=== PATIENT | male | born 1965 | race Caucasian/White ===

== ENCOUNTER → 2020-03-20 14:21 | Outpatient (BNVA) | payer OTHER, SELFPAY | PROVIDERS: PCP Internal Medicine Geriatric Medicine; Visit Provider Internal Medicine | DX: I26.99 Other pulmonary embolism without acute cor pulmonale (principal); Z51.81 Encounter for therapeutic drug level monitoring; Z79.01 Long term (current) use of anticoagulants | CPT/HCPCS: 85610 ==

== ENCOUNTER → 2020-03-31 13:51 | Outpatient (BNVA) | payer OTHER, SELFPAY | PROVIDERS: PCP Internal Medicine Geriatric Medicine; Visit Provider Internal Medicine | DX: I26.99 Other pulmonary embolism without acute cor pulmonale (principal); Z51.81 Encounter for therapeutic drug level monitoring; Z79.01 Long term (current) use of anticoagulants | CPT/HCPCS: 85610; 99211 ==

== ENCOUNTER → 2020-04-14 11:50 | Outpatient (BNVA) | payer OTHER, SELFPAY | PROVIDERS: PCP Internal Medicine Geriatric Medicine; Visit Provider Internal Medicine | DX: I26.99 Other pulmonary embolism without acute cor pulmonale (principal); Z51.81 Encounter for therapeutic drug level monitoring; Z79.01 Long term (current) use of anticoagulants | CPT/HCPCS: 85610; 99211 ==

== ENCOUNTER → 2020-05-05 10:29 | Outpatient (BNVA) | payer OTHER, SELFPAY | PROVIDERS: PCP Internal Medicine Geriatric Medicine; Visit Provider Internal Medicine | DX: I26.99 Other pulmonary embolism without acute cor pulmonale (principal); Z51.81 Encounter for therapeutic drug level monitoring; Z79.01 Long term (current) use of anticoagulants | CPT/HCPCS: 85610; 99211 ==

== ENCOUNTER 2020-05-13 08:53 | Outpatient (REF) | payer OTHER, SELFPAY ==
--- NOTE | 2020-05-13 | US_ITS ---
EXAMINATION: US VENOUS ULTRASOUND WITH DOPPLER LOWER EXTREMITY, RIGHT CLINICAL INFORMATION: Pain. COMPARISON: None TECHNIQUE: Ultrasound of the deep veins is performed from the hip to the calf with compression sonography and color and pulse Doppler assessment. Spectral analysis with color-flow imaging is performed. FINDINGS: The right common femoral vein is patent. The right profunda is patent. 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 In one of the mid superficial femoral veins, there is linear echogenic material, limited compression and limited flow suggestive of changes from old DVT. The popliteal vein is patent. The visualized posterior tibial and peroneal veins in the calf are patent. There is no Connell's cyst. US/US venous duplex LE RT IMPRESSION: Partially duplicated system. There is probable chronic changes from nonocclusive DVT in one of the mid superficial femoral veins. There is no definite evidence of acute DVT. If there is suspicion of acute DVT, short-term follow-up exam in several days to one week would be recommended. Findings will be communicated by the [place] work flow host coordinator Malissa Rangel.
== END 2020-05-13 08:54 | disposition home or self-care (01) ==
LOC: HO.US 08:53
PROVIDERS: PCP Internal Medicine Geriatric Medicine; Visit Provider Internal Medicine Geriatric Medicine
DX: I82.503 Chronic embolism and thrombosis of unspecified deep veins of lower extremity, bilateral (principal); M79.661 Pain in right lower leg
CPT/HCPCS: 93971

== ENCOUNTER → 2020-05-16 14:15 | Outpatient (BNVA) | payer OTHER, SELFPAY | PROVIDERS: PCP Internal Medicine Geriatric Medicine; Visit Provider Internal Medicine | DX: I26.99 Other pulmonary embolism without acute cor pulmonale (principal); Z51.81 Encounter for therapeutic drug level monitoring; Z79.01 Long term (current) use of anticoagulants | CPT/HCPCS: 85610; 99211 ==

== ENCOUNTER → 2020-05-26 11:02 | Outpatient (BNVA) | payer OTHER, SELFPAY | PROVIDERS: PCP Internal Medicine Geriatric Medicine; Visit Provider Internal Medicine | DX: I26.99 Other pulmonary embolism without acute cor pulmonale (principal); Z51.81 Encounter for therapeutic drug level monitoring; Z79.01 Long term (current) use of anticoagulants | CPT/HCPCS: 85610; 99211 ==

== ENCOUNTER → 2020-06-02 11:36 | Outpatient (BNVA) | payer OTHER, SELFPAY | PROVIDERS: PCP Internal Medicine Geriatric Medicine; Visit Provider Internal Medicine | DX: I26.99 Other pulmonary embolism without acute cor pulmonale (principal); Z51.81 Encounter for therapeutic drug level monitoring; Z79.01 Long term (current) use of anticoagulants | CPT/HCPCS: 85610; 99211 ==

== ENCOUNTER → 2020-06-09 14:51 | Outpatient (BNVA) | payer OTHER, SELFPAY | PROVIDERS: PCP Internal Medicine Geriatric Medicine; Visit Provider Internal Medicine | DX: I26.99 Other pulmonary embolism without acute cor pulmonale (principal); Z51.81 Encounter for therapeutic drug level monitoring; Z79.01 Long term (current) use of anticoagulants | CPT/HCPCS: 85610; 99211 ==

== ENCOUNTER → 2020-06-11 13:31 | Outpatient (BNVA) | payer OTHER, SELFPAY | PROVIDERS: PCP Internal Medicine Geriatric Medicine; Visit Provider Surgery | DX: I27.82 Chronic pulmonary embolism (principal); K64.5 Perianal venous thrombosis | CPT/HCPCS: 99212 ==

== ENCOUNTER → 2020-06-23 14:01 | Outpatient (BNVA) | payer OTHER, SELFPAY | PROVIDERS: PCP Internal Medicine Geriatric Medicine; Visit Provider Internal Medicine | DX: I26.99 Other pulmonary embolism without acute cor pulmonale (principal); Z51.81 Encounter for therapeutic drug level monitoring; Z79.01 Long term (current) use of anticoagulants | CPT/HCPCS: 85610; 99211 ==

== ENCOUNTER → 2020-07-09 13:55 | Outpatient (BNVA) | payer OTHER, SELFPAY | PROVIDERS: PCP Internal Medicine Geriatric Medicine; Visit Provider Internal Medicine | DX: I26.99 Other pulmonary embolism without acute cor pulmonale (principal); Z51.81 Encounter for therapeutic drug level monitoring; Z79.01 Long term (current) use of anticoagulants | CPT/HCPCS: 85610; 99211 ==

== ENCOUNTER 2020-07-21 16:09 | Outpatient (REF) | payer OTHER, SELFPAY ==
--- NOTE | ~2020-07-21 | XR_ITS ---
EXAMINATION: RIGHT ANKLE AND RIGHT KNEE. CLINICAL INFORMATION: Pain right ankle and right knee. COMPARISON: Left knee 08/25/2018 and right knee 01/23/2018. TECHNIQUE: Right knee 4 views. Right ankle 3 views. FINDINGS: Right Knee: There is mild reduction in the patellofemoral compartment joint space with a loose bodies superior to the patella, likely arising from the lateral patellar articulating facet. There is small superior patellar spurring as well. No abnormal joint effusion seen. No fracture or dislocation. No bony erosive changes. Right Ankle: There is bimalleolar soft tissue swelling no ligamentous injury. Ankle mortise and subtalar joints are normal. There is a moderate-sized calcaneal and small retrocalcaneal enthesophyte. The ankle mortise and subtalar joints are normal. XR/XR knee RT 3V IMPRESSION: Small loose body seen superior to patella likely arising from the lateral articulating patellar facet, question osteochondritis dissecans as was noted in 2018 exam. Small superior patellar spur. No abnormal joint effusion. Small calcaneal and retrocalcaneal enthesophytes. No visible acute fracture, dislocation or subluxation seen.
--- NOTE | ~2020-07-21 | XR_ITS ---
EXAMINATION: RIGHT ANKLE AND RIGHT KNEE. CLINICAL INFORMATION: Pain right ankle and right knee. COMPARISON: Left knee 08/25/2018 and right knee 01/23/2018. TECHNIQUE: Right knee 4 views. Right ankle 3 views. FINDINGS: Right Knee: There is mild reduction in the patellofemoral compartment joint space with a loose bodies superior to the patella, likely arising from the lateral patellar articulating facet. There is small superior patellar spurring as well. No abnormal joint effusion seen. No fracture or dislocation. No bony erosive changes. Right Ankle: There is bimalleolar soft tissue swelling no ligamentous injury. Ankle mortise and subtalar joints are normal. There is a moderate-sized calcaneal and small retrocalcaneal enthesophyte. The ankle mortise and subtalar joints are normal. XR/XR ankle RT min 3V IMPRESSION: Small loose body seen superior to patella likely arising from the lateral articulating patellar facet, question osteochondritis dissecans as was noted in 2018 exam. Small superior patellar spur. No abnormal joint effusion. Small calcaneal and retrocalcaneal enthesophytes. No visible acute fracture, dislocation or subluxation seen.
== END 2020-07-21 16:10 | disposition home or self-care (01) ==
LOC: HO.XRAY 16:09
PROVIDERS: PCP Internal Medicine Geriatric Medicine; Visit Provider Emergency Medicine
DX: M25.561 Pain in right knee (principal); M25.571 Pain in right ankle and joints of right foot; W19.XXXA Unspecified fall, initial encounter
CPT/HCPCS: 73562; 73610

== ENCOUNTER → 2020-07-22 14:45 | Outpatient (BNVA) | payer OTHER, SELFPAY | PROVIDERS: PCP Internal Medicine Geriatric Medicine; Visit Provider Nurse Practitioner Family | DX: Z76.89 Persons encountering health services in other specified circumstances (principal) | CPT/HCPCS: Q3014 ==

== ENCOUNTER → 2020-07-24 14:23 | Outpatient (BNVA) | payer OTHER, SELFPAY | PROVIDERS: PCP Internal Medicine Geriatric Medicine; Visit Provider Internal Medicine | DX: I26.99 Other pulmonary embolism without acute cor pulmonale (principal); Z51.81 Encounter for therapeutic drug level monitoring; Z79.01 Long term (current) use of anticoagulants | CPT/HCPCS: 85610; 99211 ==

== ENCOUNTER → 2020-08-04 14:28 | Outpatient (BNVA) | payer OTHER, SELFPAY | PROVIDERS: PCP Internal Medicine Geriatric Medicine; Visit Provider Internal Medicine | DX: I26.99 Other pulmonary embolism without acute cor pulmonale (principal); Z51.81 Encounter for therapeutic drug level monitoring; Z79.01 Long term (current) use of anticoagulants | CPT/HCPCS: 85610; 99211 ==

== ENCOUNTER → 2020-08-11 14:41 | Outpatient (BNVA) | payer OTHER, SELFPAY | PROVIDERS: PCP Internal Medicine Geriatric Medicine; Visit Provider Internal Medicine | DX: I26.99 Other pulmonary embolism without acute cor pulmonale (principal); Z51.81 Encounter for therapeutic drug level monitoring; Z79.01 Long term (current) use of anticoagulants | CPT/HCPCS: 85610; 99211 ==

== ENCOUNTER 2020-08-20 10:06 | Outpatient (REF) | payer OTHER, SELFPAY ==
--- NOTE | 2020-08-20 13:47 | MHC.AU.P13 ---
Hearing Aid Evaluation- Binaural Date of Visit: Animal Shelter Supervisor Used: Turkmen- In Person Description of Hearing: Severe to profound sensorineural hearing loss bilaterally Current Hearing Instrument Information: None Additional Information: Patient was medically cleared by Dr. Pop. Due to the significant amount of hearing loss and speech understanding difficulties, binaural hearing aids are recommended as part of the remediation process. Discussed and demonstrated ITE vs LUCILLE hearing aids. Due to wearing masks and some manipulation difficulties advise in-the-ear rechargeable hearing aids. Hearing Instrument Selection: Right Ear: Construction Supervisor/Carpenter: Amarin Model: Jamir 1600 ITE-R Battery Size: Rechargeable Color: Light Brown Left Ear: Construction Supervisor/Carpenter: Curry Model: Jamir 1600 ITE-R Battery Size: Rechargeable Color: Light Brown Plan: Plan of Care for Hearing Instrument Fitting: Patient wishes to purchase hearing aids as prescribed Action Taken/Action Needed: [place] Impressions Taken Diagnosis Code(s): Primary Diagnosis: H90.3 Bilateral Sensorineural Hearing Loss Services Performed: Hearing Aid Evaluation Type: HAE B: Binaural 3rd Libertarian Ear Impression (Quantity): 2 Signature: Provider: Kenn Powell, CCC-A
== END 2020-08-20 10:07 | disposition home or self-care (01) ==
LOC: HO.HAP 10:06
PROVIDERS: PCP Internal Medicine Geriatric Medicine; Visit Provider Otolaryngology
DX: Z46.1 Encounter for fitting and adjustment of hearing aid (principal)
CPT/HCPCS: 92591; V5275

== ENCOUNTER → 2020-08-26 13:42 | Outpatient (BNVA) | payer OTHER, SELFPAY | PROVIDERS: PCP Internal Medicine Geriatric Medicine; Visit Provider Internal Medicine | DX: I26.99 Other pulmonary embolism without acute cor pulmonale (principal); Z51.81 Encounter for therapeutic drug level monitoring; Z79.01 Long term (current) use of anticoagulants | CPT/HCPCS: 85610; 99211 ==

== ENCOUNTER → 2020-09-08 14:22 | Outpatient (BNVA) | payer OTHER, SELFPAY | PROVIDERS: PCP Internal Medicine Geriatric Medicine; Visit Provider Internal Medicine | DX: I26.99 Other pulmonary embolism without acute cor pulmonale (principal); Z51.81 Encounter for therapeutic drug level monitoring; Z79.01 Long term (current) use of anticoagulants | CPT/HCPCS: 85610; 99211 ==

== ENCOUNTER 2020-09-09 09:09 | Outpatient (REF) | payer OTHER, SELFPAY | END 2020-09-09 09:10 | disposition home or self-care (01) | LOC: HO.HAP 09:09 | PROVIDERS: PCP Internal Medicine Geriatric Medicine; Visit Provider Otolaryngology | DX: Z46.1 Encounter for fitting and adjustment of hearing aid (principal); H90.3 Sensorineural hearing loss, bilateral; H69.93 Unspecified Eustachian tube disorder, bilateral | CPT/HCPCS: 92595; V5011; V5020; V5160; V5260 ==

== ENCOUNTER → 2020-09-25 14:10 | Outpatient (BNVA) | payer OTHER, SELFPAY | PROVIDERS: PCP Internal Medicine Geriatric Medicine; Visit Provider Internal Medicine | DX: I26.99 Other pulmonary embolism without acute cor pulmonale (principal); Z79.01 Long term (current) use of anticoagulants; Z51.81 Encounter for therapeutic drug level monitoring | CPT/HCPCS: 85610; 99211 ==

== ENCOUNTER → 2020-10-07 13:28 | Outpatient (BNVA) | payer OTHER, SELFPAY | PROVIDERS: PCP Internal Medicine Geriatric Medicine; Visit Provider Internal Medicine | DX: I26.99 Other pulmonary embolism without acute cor pulmonale (principal); Z51.81 Encounter for therapeutic drug level monitoring; Z79.01 Long term (current) use of anticoagulants | CPT/HCPCS: 85610; 99211 ==

== ENCOUNTER → 2020-10-13 13:16 | Outpatient (BNVA) | payer OTHER, SELFPAY | PROVIDERS: PCP Internal Medicine Geriatric Medicine; Visit Provider Internal Medicine | DX: I26.99 Other pulmonary embolism without acute cor pulmonale (principal); Z51.81 Encounter for therapeutic drug level monitoring; Z79.01 Long term (current) use of anticoagulants | CPT/HCPCS: 85610; 99211 ==

== ENCOUNTER 2020-10-21 12:55 | Outpatient (REF) | payer OTHER, SELFPAY | END 2020-10-21 12:56 | disposition home or self-care (01) | LOC: HO.HAP 12:55 | PROVIDERS: Visit Provider Internal Medicine Geriatric Medicine | DX: Z13.89 Encounter for screening for other disorder (principal) ==

== ENCOUNTER → 2020-10-27 13:03 | Outpatient (BNVA) | payer OTHER, SELFPAY | PROVIDERS: PCP Internal Medicine Geriatric Medicine; Visit Provider Internal Medicine | DX: I26.99 Other pulmonary embolism without acute cor pulmonale (principal); Z51.81 Encounter for therapeutic drug level monitoring; Z79.01 Long term (current) use of anticoagulants | CPT/HCPCS: 85610; 99211 ==

== ENCOUNTER → 2020-11-03 13:04 | Outpatient (BNVA) | payer OTHER, SELFPAY | PROVIDERS: PCP Internal Medicine Geriatric Medicine; Visit Provider Internal Medicine | DX: I26.99 Other pulmonary embolism without acute cor pulmonale (principal); Z51.81 Encounter for therapeutic drug level monitoring; Z79.01 Long term (current) use of anticoagulants | CPT/HCPCS: 85610; 99211 ==

== ENCOUNTER → 2020-11-17 13:08 | Outpatient (BNVA) | payer OTHER, SELFPAY | PROVIDERS: PCP Internal Medicine Geriatric Medicine; Visit Provider Internal Medicine | DX: I26.99 Other pulmonary embolism without acute cor pulmonale (principal); Z51.81 Encounter for therapeutic drug level monitoring; Z79.01 Long term (current) use of anticoagulants | CPT/HCPCS: 85610; 99211 ==

== ENCOUNTER → 2020-11-24 13:04 | Outpatient (BNVA) | payer OTHER, SELFPAY | PROVIDERS: PCP Internal Medicine Geriatric Medicine; Visit Provider Internal Medicine | DX: I26.99 Other pulmonary embolism without acute cor pulmonale (principal); Z51.81 Encounter for therapeutic drug level monitoring; Z79.01 Long term (current) use of anticoagulants | CPT/HCPCS: 85610; 99211 ==

== ENCOUNTER → 2020-12-04 13:16 | Outpatient (BNVA) | payer OTHER, SELFPAY | PROVIDERS: PCP Internal Medicine Geriatric Medicine; Visit Provider Internal Medicine | DX: I26.99 Other pulmonary embolism without acute cor pulmonale (principal); Z51.81 Encounter for therapeutic drug level monitoring; Z79.01 Long term (current) use of anticoagulants | CPT/HCPCS: 85610; 99211 ==

== ENCOUNTER → 2020-12-09 13:09 | Outpatient (BNVA) | payer OTHER, SELFPAY | PROVIDERS: PCP Internal Medicine Geriatric Medicine; Visit Provider Internal Medicine | DX: I26.99 Other pulmonary embolism without acute cor pulmonale (principal); Z51.81 Encounter for therapeutic drug level monitoring; Z79.01 Long term (current) use of anticoagulants | CPT/HCPCS: 85610; 99211 ==

== ENCOUNTER → 2020-12-23 13:25 | Outpatient (BNVA) | payer OTHER, SELFPAY | PROVIDERS: PCP Internal Medicine Geriatric Medicine; Visit Provider Internal Medicine | DX: I26.99 Other pulmonary embolism without acute cor pulmonale (principal); Z51.81 Encounter for therapeutic drug level monitoring; Z79.01 Long term (current) use of anticoagulants | CPT/HCPCS: 85610; 99211 ==

== ENCOUNTER → 2021-01-06 10:37 | Outpatient (BNVA) | payer OTHER, SELFPAY | PROVIDERS: PCP Internal Medicine Geriatric Medicine; Visit Provider Internal Medicine | DX: I26.99 Other pulmonary embolism without acute cor pulmonale (principal); Z51.81 Encounter for therapeutic drug level monitoring; Z79.01 Long term (current) use of anticoagulants | CPT/HCPCS: 85610; 99211 ==

== ENCOUNTER 2021-01-15 11:58 | Outpatient (REF) | payer OTHER, SELFPAY ==
--- NOTE | ~2021-01-15 | US_ITS ---
EXAMINATION: US VENOUS ULTRASOUND WITH DOPPLER LOWER EXTREMITY, BILATERAL CLINICAL INFORMATION: Bilateral leg pain. History of recurrent DVT with known occlusive DVTs. COMPARISON: May 13, 2020 TECHNIQUE: Ultrasound of the deep veins is performed from the hip to the calf with compression sonography and color and pulse Doppler assessment. Spectral analysis with color-flow imaging is performed. FINDINGS: RIGHT: There appears to be a duplicated femoral vein from proximal thigh to popliteal veins. There are findings of chronic deep venous thrombosis with wall thickening and synechiae present with partial occlusion from the proximal thigh to the popliteal veins with limited evaluation of the calf veins related to body habitus and edema.. About the medial right knee there is a complex cyst present measuring approximately 7.6 x 1.2 x 3.5 cm in size. LEFT: There is a similar anatomy within the left leg with branching of what is likely to be a duplicated femoral vein from proximal thigh to popliteal vein. There are regions of noncompressibility and complete occlusion to flow within portions of the breast femoral vein from proximal femoral vein to popliteal vein which is likely related to acute DVT since there is no recanalization of flow present in some regions. Calf veins were not well evaluated. There is no significant popliteal fossa cyst. US/US venous duplex LE BI IMPRESSION: Findings consistent with chronic DVT with recanalization and synechiae within the right lower extremity. Findings consistent with acute deep venous thrombosis with lack of compressibility and occlusion to flow within portions of a branched femoral vein and left popliteal vein. This critical result was discussed with Dr. Treviño at 2:55 PM on January 15, 2021 and it was ascertained that the content and urgency of the report was understood at the time of direct communication.
== END 2021-01-15 11:59 | disposition home or self-care (01) ==
LOC: HO.US 11:58
PROVIDERS: PCP Internal Medicine Geriatric Medicine; Visit Provider Nurse Practitioner Primary Care
DX: I82.409 Acute embolism and thrombosis of unspecified deep veins of unspecified lower extremity (principal); M79.604 Pain in right leg; M79.662 Pain in left lower leg
CPT/HCPCS: 93970

== ENCOUNTER 2021-02-18 15:32 | Outpatient (REF) | payer OTHER, SELFPAY ==
--- NOTE | ~2021-02-18 | US_ITS ---
EXAMINATION: US VENOUS ULTRASOUND WITH DOPPLER LOWER EXTREMITY, LEFT CLINICAL INFORMATION: Acute embolism and thrombus left leg, evaluate for DVT. COMPARISON: 01/15/2021 TECHNIQUE: Ultrasound of the deep veins is performed from the hip to the calf with compression sonography and color and pulse Doppler assessment. Spectral analysis with color-flow imaging is performed. FINDINGS: The only abnormality seen is incompressibility of the popliteal vein which does still have some flow within it. When comparison is made to the prior study, this finding appears to be new (compare prior / with current ). Given the fact that this is new, would have to consider this fresh thrombus when compared to the 01/15/2021 study. Elsewhere, there are normal venous compression and respiratory variation and augmented flow. The visualized common femoral vein, superficial femoral vein, profunda femoral vein and visualized tibial veins shows no evidence of deep venous thrombosis. There is no significant popliteal fossa cyst. It should be noted that at the time of the prior study, a duplicated femoral vein was seen which was not imaged on the current study. US/US venous duplex LE LT IMPRESSION: New thrombus in the left popliteal vein, non-occlusive. This critical result was discussed with Dr. Brandon at 6:40 PM on the day of the exam and it was ascertained that the content and urgency of the report was understood at the time of direct communication.
== END 2021-02-18 15:33 | disposition home or self-care (01) ==
LOC: HO.US 15:32
PROVIDERS: PCP Internal Medicine Geriatric Medicine; Visit Provider Emergency Medicine
DX: I82.402 Acute embolism and thrombosis of unspecified deep veins of left lower extremity (principal)
CPT/HCPCS: 93971

== ENCOUNTER 2021-02-23 13:31 | Emergency (ER) | payer OTHER, SELFPAY | END 2021-02-23 15:18 | disposition left against medical advice (07) | PROVIDERS: Emergency Provider Emergency Medicine; PCP Internal Medicine Geriatric Medicine | DX: L03.90 Cellulitis, unspecified (principal) ==

== ENCOUNTER 2021-08-03 10:57 | Outpatient (REF) | payer OTHER, SELFPAY ==
--- NOTE | ~2021-08-03 | XR_ITS ---
EXAMINATION: LEFT ANKLE AND FOOT X-RAYS CLINICAL INFORMATION: Pain COMPARISON: None TECHNIQUE: 3 views of the left foot and 3 views of the left ankle FINDINGS: Left foot: Bone alignment is normal. No fracture or dislocation is seen. The joint spaces are normal. There are small calcaneal spurs. Left ankle: Bone alignment is normal. No fracture or dislocation is seen. The ankle mortise is normal. Soft tissues are normal. XR/XR ankle LT min 3V IMPRESSION: Left foot: Small calcaneal spurs. Left ankle: Unremarkable exam.
--- NOTE | ~2021-08-03 | XR_ITS ---
EXAMINATION: LEFT ANKLE AND FOOT X-RAYS CLINICAL INFORMATION: Pain COMPARISON: None TECHNIQUE: 3 views of the left foot and 3 views of the left ankle FINDINGS: Left foot: Bone alignment is normal. No fracture or dislocation is seen. The joint spaces are normal. There are small calcaneal spurs. Left ankle: Bone alignment is normal. No fracture or dislocation is seen. The ankle mortise is normal. Soft tissues are normal. XR/XR foot LT min 3V IMPRESSION: Left foot: Small calcaneal spurs. Left ankle: Unremarkable exam.
== END 2021-08-03 10:58 | disposition home or self-care (01) ==
LOC: HO.XRAY 10:57
PROVIDERS: Absent Provider Internal Medicine Geriatric Medicine; PCP Internal Medicine Geriatric Medicine; Visit Provider Registered Nurse Community Health
DX: M25.572 Pain in left ankle and joints of left foot (principal)
CPT/HCPCS: 73610; 73630

== ENCOUNTER 2021-08-12 15:26 | Outpatient (REF) | payer OTHER, SELFPAY ==
--- NOTE | ~2021-08-12 | US_ITS ---
EXAMINATION: US VENOUS ULTRASOUND WITH DOPPLER LOWER EXTREMITY, LEFT CLINICAL INFORMATION: Left lower extremity pain. COMPARISON: None TECHNIQUE: Ultrasound of the deep veins is performed from the hip to the calf with compression sonography and color and pulse Doppler assessment. Spectral analysis with color-flow imaging is performed. FINDINGS: There is normal venous compression and respiratory variation and augmented flow. The visualized common femoral vein, proximal, mid superficial femoral vein and profunda femoral vein shows no evidence of deep venous thrombosis. There is no significant popliteal fossa cyst. There is occlusive thrombus in the distal superficial femoral vein and popliteal vein. The peroneal vein was not seen. If the patient's symptoms persist, followup ultrasound in 5 days 7 days might be of value to exclude proximal propagation from a non-visualized calf vein. US/US venous duplex LE IMPRESSION: Occlusive deep vein thrombus left distal superficial femoral vein and the popliteal vein. Results were immediately called to referring physician, Dr. Forrest, by phone at 4: 33 PM.
== END 2021-08-12 15:27 | disposition home or self-care (01) ==
LOC: HO.US 15:26
PROVIDERS: Absent Provider Internal Medicine Geriatric Medicine; PCP Internal Medicine Geriatric Medicine; Visit Provider Nurse Practitioner Family
DX: M25.572 Pain in left ankle and joints of left foot (principal); M77.32 Calcaneal spur, left foot
CPT/HCPCS: 93971

== ENCOUNTER → 2021-09-02 10:52 | Outpatient (BNVA) | payer OTHER, SELFPAY | PROVIDERS: PCP Internal Medicine Geriatric Medicine; Visit Provider Nurse Practitioner Family | DX: G47.33 Obstructive sleep apnea (adult) (pediatric) (principal); G47.00 Insomnia, unspecified | CPT/HCPCS: 99202 ==

== ENCOUNTER 2021-09-11 14:50 | Outpatient (REF) | payer OTHER, SELFPAY ==
--- NOTE | ~2021-09-11 | CT_ITS ---
EXAMINATION: CT CHEST SCREENING CLINICAL INFORMATION: Current smoker. 42 pack year history. COMPARISON: None. TECHNIQUE: Multidetector volumetric CT imaging of the chest is performed without contrast using low dose technique. Additional 2D coronal and sagittal reformatted images and axial 3D maximum intensity projection (MIP) images are generated on the CT workstation. This CT examination was performed using dose optimization techniques as appropriate, variously including the following: *Automated exposure control *Adjustment of mA and/or kV according to patient size (this includes techniques or standardized protocols for targeted exams where dose is matched to indication/reason for exam; i.e. extremities or head) *Use of iterative reconstruction technique DLP: 112 mGy-cm FINDINGS: LUNGS: The lung volumes are low. There is bibasilar linear scarring or subsegmental atelectasis. There is increased attenuation seen in the peripheral or subpleural medial right lower lobe adjacent to bony osteophyte likely representing compressive atelectasis as well. The lungs are otherwise clear. No endobronchial or endotracheal lesion. MEDIASTINUM: The mediastinum is normal. PLEURA: There is no pleural effusion. No pleural mass or thickening. AXILLA: No lymphadenopathy. UPPER ABDOMEN: There may be diverticulosis of the colon. OSSEOUS STRUCTURES: There are degenerative changes of the spine. CT/CT lung screening IMPRESSION: Low lung volumes and bilateral subsegmental atelectasis or scarring. ASSESSMENT: Lung-RADS category 2: Benign RECOMMENDATION: Annual low-dose chest CT follow-up recommended.
== END 2021-09-11 14:51 | disposition home or self-care (01) ==
LOC: HO.CT 14:50
PROVIDERS: PCP Internal Medicine Geriatric Medicine; Visit Provider Physician Assistant Medical
DX: Z12.2 Encounter for screening for malignant neoplasm of respiratory organs (principal); F17.210 Nicotine dependence, cigarettes, uncomplicated
CPT/HCPCS: 71271; G0296

== ENCOUNTER → 2021-09-30 09:57 | Outpatient (BNVA) | payer OTHER, SELFPAY | PROVIDERS: PCP Internal Medicine Geriatric Medicine; Referring Provider Internal Medicine Geriatric Medicine; Visit Provider Physician Assistant | DX: Z12.11 Encounter for screening for malignant neoplasm of colon (principal); G47.33 Obstructive sleep apnea (adult) (pediatric); I27.82 Chronic pulmonary embolism; R06.83 Snoring; Z79.01 Long term (current) use of anticoagulants; Z78.9 Other specified health status; Z86.010 Personal history of colon polyps | CPT/HCPCS: 99212 ==

== ENCOUNTER → 2021-10-26 14:20 | Outpatient (REF) | payer OTHER, SELFPAY | LOC: HO.SL 14:20 | PROVIDERS: PCP Internal Medicine Geriatric Medicine; Visit Provider Nurse Practitioner Family | DX: G47.33 Obstructive sleep apnea (adult) (pediatric) (principal); R06.83 Snoring; R40.0 Somnolence | CPT/HCPCS: 95806 ==

== ENCOUNTER → 2021-12-28 14:50 | Outpatient (BNVA) | payer OTHER, SELFPAY | PROVIDERS: PCP Internal Medicine Geriatric Medicine; Visit Provider Nurse Practitioner Family | DX: G47.33 Obstructive sleep apnea (adult) (pediatric) (principal); F51.04 Psychophysiologic insomnia | CPT/HCPCS: 99212 ==

== ENCOUNTER 2022-03-18 11:21 | Outpatient (REF) | payer OTHER, SELFPAY ==
--- NOTE | ~2022-03-18 | MM_ITS ---
EXAMINATION: MM DIAGNOSTIC DIGITAL BREAST TOMOSYNTHESIS, BILATERAL US DIAGNOSTIC ULTRASOUND BREAST, RIGHT CLINICAL INFORMATION: 56-year-old male with inverted right nipple noted at clinical exam. No palpable mass or discharge. No prior breast imaging. COMPARISON: Current study represents initial baseline exam. Comparison is made with CT lung screening 09/11/2021. TECHNIQUE: Digital breast tomosynthesis is performed in both the craniocaudal and mediolateral oblique views along with computer-aided detection (CAD). Synthesized 2D images are generated from the tomosynthesis. Additional exaggerated right CC and left CC views are obtained. Ultrasound right breast is targeted to the subareolar and periareolar region. Grayscale imaging and color Doppler are performed without and with harmonics. FINDINGS: The breasts are almost entirely fatty (ACR BI-RADS breast composition Category a). Stromal markings appear normal. There is no skin thickening. No mass or architectural abnormality. The axilla are unremarkable. There is mild right nipple retraction consistent with the clinical history. The subareolar stromal markings appear normal. Asymmetric right nipple retraction also noted in retrospect on the CT lung screening exam from 09/11/2021. Ultrasound demonstrates no cystic or solid mass or architectural abnormality. No focal duct ectasia. No edema tracking in soft tissue planes or hyperemia. Results are discussed with the patient at time of visit using an director of digital technology. MM/MM tomosynthesis diagnostic BI IMPRESSION: Right: -Right nipple retraction, in retrospect also noted on CT chest 09/11/2021. -Otherwise unremarkable. No mass or coarsening stromal markings. Left: -No mammographic evidence of malignancy. ASSESSMENT: BI-RADS 3: Probably Benign RECOMMENDATION: Patient should be managed based on the clinical impression. If clinically indicated, further evaluation may be considered with surgical consult. Decision to proceed with biopsy should be based on clinical grounds and degree of clinical concern.
== END 2022-03-18 11:22 | disposition home or self-care (01) ==
LOC: HO.MAMMO 11:21
PROVIDERS: PCP Internal Medicine Geriatric Medicine; Visit Provider Internal Medicine
DX: N64.59 Other signs and symptoms in breast (principal)
CPT/HCPCS: 76642; 77062; 77066

== ENCOUNTER 2022-06-17 16:14 | Outpatient (REF) | payer OTHER, SELFPAY ==
--- NOTE | ~2022-06-17 | US_ITS ---
EXAMINATION: US VENOUS ULTRASOUND WITH DOPPLER LOWER EXTREMITY, RIGHT CLINICAL INFORMATION: Right lower extremities pain and edema. COMPARISON: Right lower extremity ultrasound 05/13/2020. TECHNIQUE: Ultrasound of the deep veins is performed from the hip to the calf with compression sonography and color and pulse Doppler assessment. Spectral analysis with color-flow imaging is performed. FINDINGS: Redemonstration of partially duplicated femoral veins with redemonstration of chronic appearing thrombosis in one of the mid superficial femoral veins that is not convincingly changed when compared to 05/13/2020. The visualized common femoral vein, profunda femoral vein, popliteal vein, and the trifurcation region shows no evidence of deep venous thrombosis. There is a 2.4 x 0.9 x 1.3 cm simple cyst in the region of the popliteal fossa, likely representing a Connell's cyst. If the patient's symptoms persist, followup ultrasound in 5 days 7 days might be of value to exclude proximal propagation from a non-visualized calf vein. US/US venous duplex LE RT IMPRESSION: 1. Redemonstration of partially duplicated femoral veins with redemonstration of chronic appearing thrombosis in one of the mid superficial femoral veins that is not convincingly changed when compared to 05/13/2020. 2. No evidence of acute deep venous thrombosis. 3. There is a 2.4 cm simple cyst in the region of the popliteal fossa, likely representing a Connell's cyst.
== END 2022-06-17 16:15 | disposition home or self-care (01) ==
LOC: HO.US 16:14
PROVIDERS: Visit Provider Registered Nurse
DX: M79.661 Pain in right lower leg (principal)
CPT/HCPCS: 93971

== ENCOUNTER 2022-08-04 12:04 | Outpatient (REF) | payer OTHER, SELFPAY ==
--- NOTE | 2022-08-04 09:30 | EMG_ITS ---
Please see scanned EMG / Nerve Conduction Report. MTDD
== END 2022-08-04 12:05 | disposition home or self-care (01) ==
LOC: HO.NEURO 12:04
PROVIDERS: PCP Internal Medicine Geriatric Medicine; Visit Provider Internal Medicine Geriatric Medicine
DX: R20.0 Anesthesia of skin (principal)
CPT/HCPCS: 95885; 95910

== ENCOUNTER → 2022-08-13 14:38 | Outpatient (BNVA) | payer OTHER, SELFPAY | PROVIDERS: PCP Internal Medicine Geriatric Medicine; Visit Provider Nurse Practitioner Family | DX: F51.04 Psychophysiologic insomnia (principal); G47.33 Obstructive sleep apnea (adult) (pediatric) | CPT/HCPCS: 99212 ==

== ENCOUNTER → 2022-09-01 20:30 | Outpatient (REF) | payer OTHER, SELFPAY | LOC: HO.SL 20:30 | PROVIDERS: PCP Internal Medicine Geriatric Medicine; Visit Provider Nurse Practitioner Family | DX: G47.33 Obstructive sleep apnea (adult) (pediatric) (principal) | CPT/HCPCS: 95811 ==

== ENCOUNTER 2022-09-08 12:36 | Outpatient (RCR) | payer OTHER, SELFPAY ==
--- NOTE | ~2022-09-08 | XR_ITS ---
EXAMINATION: XR TIBIA AND FIBULA, RIGHT CLINICAL INFORMATION: Right leg wound COMPARISON: Ankle radiographs 08/03/2021, knee radiograph grafts 07/21/2020 TECHNIQUE: AP and lateral views of the right tibia and fibula were obtained. FINDINGS: Chronic appearing posttraumatic deformity of the proximal fibular diaphysis. No acute fracture or dislocation. Mild degenerative changes of the knee with small osteophytes and a 4 mm calcific location the suprapatellar joint space which may reflect a loose body. Mild degenerative changes of the foot and ankle with Achilles tendon enthesopathy, plantar calcaneal spurring and tibiotalar spurring. Soft tissues are unremarkable. No periosteal reaction, cortical erosion or focal osteopenia to favor osteomyelitis however MRI would be more sensitive for evaluation. No tibiotalar joint effusion. XR/XR tibia fibula RT 2V IMPRESSION: 1. No periosteal reaction, cortical erosion or focal osteopenia to favor osteomyelitis however MRI would be more sensitive for evaluation. 2. Chronic appearing posttraumatic deformity of the proximal fibular diaphysis. 3. Mild degenerative changes of the knee with a 4 mm calcific location the suprapatellar joint space which may reflect a loose body. 4. Mild degenerative changes of the foot and ankle.
== END 2022-11-10 16:19 | disposition home or self-care (01) ==
LOC: HO.WCC 12:36
PROVIDERS: PCP Internal Medicine Geriatric Medicine; Visit Provider Surgery
DX: I87.312 Chronic venous hypertension (idiopathic) with ulcer of left lower extremity (principal); L97.822 Non-pressure chronic ulcer of other part of left lower leg with fat layer exposed; I73.9 Peripheral vascular disease, unspecified; I10 Essential (primary) hypertension; F17.210 Nicotine dependence, cigarettes, uncomplicated; Z86.718 Personal history of other venous thrombosis and embolism; Z79.899 Other long term (current) drug therapy
CPT/HCPCS: 73590; 97597; 99212; 99213

== ENCOUNTER → 2022-10-14 14:04 | Outpatient (BNVA) | payer OTHER, SELFPAY | PROVIDERS: PCP Internal Medicine Geriatric Medicine; Visit Provider Nurse Practitioner Family | DX: G47.33 Obstructive sleep apnea (adult) (pediatric) (principal); F51.04 Psychophysiologic insomnia; R40.0 Somnolence; F17.210 Nicotine dependence, cigarettes, uncomplicated; Z79.891 Long term (current) use of opiate analgesic; Z99.81 Dependence on supplemental oxygen | CPT/HCPCS: 99212 ==

== ENCOUNTER 2022-10-22 13:02 | Outpatient (REF) | payer OTHER, SELFPAY ==
--- NOTE | ~2022-10-22 | CT_ITS ---
EXAMINATION: CT CHEST SCREENING CLINICAL INFORMATION: Current smoker. 37 pack year history. COMPARISON: Previous CT September 2021 TECHNIQUE: Multidetector volumetric CT imaging of the chest is performed without contrast using low dose technique. Additional 2D coronal and sagittal reformatted images and axial 3D maximum intensity projection (MIP) images are generated on the CT workstation. This CT examination was performed using dose optimization techniques as appropriate, variously including the following: *Automated exposure control *Adjustment of mA and/or kV according to patient size (this includes techniques or standardized protocols for targeted exams where dose is matched to indication/reason for exam; i.e. extremities or head) *Use of iterative reconstruction technique DLP: 99 mGy-cm FINDINGS: LUNGS: Scarring or subsegmental atelectasis in the right middle lobe and lingula. This is similar to previous exam. The lungs are otherwise clear. No endobronchial or endotracheal lesion. MEDIASTINUM: The mediastinum is normal. CORONARY ARTERY CALCIFICATION: Mild PLEURA: There is no pleural effusion. No pleural mass or thickening. AXILLA: No lymphadenopathy. UPPER ABDOMEN: Unremarkable OSSEOUS STRUCTURES: Degenerative changes of the spine. CT/CT lung screening IMPRESSION: Stable scarring or chronic subsegmental atelectasis at the right lung base. No pulmonary nodule. ASSESSMENT: Lung-RADS category 2: Benign RECOMMENDATION: Annual low-dose chest CT follow-up recommended
== END 2022-10-22 13:03 | disposition home or self-care (01) ==
LOC: HO.CT 13:02
PROVIDERS: PCP Internal Medicine Geriatric Medicine; Visit Provider Physician Assistant Medical
DX: Z12.2 Encounter for screening for malignant neoplasm of respiratory organs (principal); F17.210 Nicotine dependence, cigarettes, uncomplicated
CPT/HCPCS: 71271

== ENCOUNTER 2022-11-17 15:18 | Outpatient (REF) | payer OTHER, SELFPAY ==
--- NOTE | ~2022-11-17 | XR_ITS ---
EXAMINATION: XR KNEE, LEFT CLINICAL INFORMATION: Pain x1 week COMPARISON: Left knee 08/25/2018 TECHNIQUE: Four views of the left knee. FINDINGS: There is been progression of degenerative changes in the left knee with increased narrowing of the patellofemoral joint. The medial and lateral joint compartments appear normal. Number of osseous density seen posteriorly some of which could represent loose bodies were seen previously as well. A small joint effusion is again noted. XR/XR knee LT 4V IMPRESSION: Progression of degenerative changes in the left knee with small joint effusion and possible loose bodies.
== END 2022-11-17 15:19 | disposition home or self-care (01) ==
LOC: HO.HHCX 15:18
PROVIDERS: Visit Provider Student in an Organized Health Care Education/Training Program
DX: M25.562 Pain in left knee (principal)
CPT/HCPCS: 73564

== ENCOUNTER 2023-01-19 14:30 | Outpatient (AMB) | payer OTHER, SELFPAY ==
[2023-01-19 14:44] VITALS: BP 126/88; PULSE 72; O2SAT 95
--- NOTE | 2023-01-19 14:44 | A.OFFVIS_ITS ---
Intake Vital Signs 01/19/23 14:44 Height 6 ft BP 126/88 Blood Pressure Location Rt brachial Position Sitting Pulse 72 Pulse Source Pulse Oximeter Pulse Oximetry (%) 95 Oxygen Delivery Method Room Air Intake Visit Reasons: 3m follow up sleep - Confirmed Intake Note: Pt presents in office for a f/u sleep. Human Resources Analyst Required: Yes Human Resources Analyst Name: [email or web address] [id number] Allergies No Known Allergies Allergy (Verified 01/19/23 14:50) HPI HPI Comments History of Present Illness Details 57 y/o male patient presents for follow up of CPAP titration study. Pt has received BiPAP. He uses BiPAP 10/5 with 1LPM supplement O2 ordered, but patient is not compliant. Pt tried but not tolerated. He feels he can't breathe. Patient tried on CPAP 5 to BiPAP 17/7. The breathing stabilized at all pressure and the oxygen stabilized with 1LPM supplement oxygen. He also tried CPAP, he felt he did not have enough oxygen and couldn't breath well. Pt tried APAP [id number] and APAP [id number]. Pt reports that CT of lung order placed. [facility] Medical History Chronic back pain Chronic pulmonary embolism Current use of anticoagulant therapy History of recurrent deep vein thrombosis (DVT) Hyperlipidemia Hypertension Methadone maintenance therapy patient Morbid obesity REAGAN (obstructive sleep apnea) Personal history of nicotine dependence Thrombosed external hemorrhoid Surgical History History of excision of mass Hx of colonoscopy Family History Father History of prostate cancer Social History (Updated 01/19/23 @ 14:57 by Mary Cheung CMA) Household Members: Friend(s) Alcohol intake: never Patient Tobacco Use Status: Former Tobacco user Tobacco use type: Cigarette Years Smoked: onset 14, 1/2-1ppd x 42yrs, 30pyh Current occupational status: disabled Review of Systems Const All systems reviewed & are unremarkable except as noted in HPI and below Physical Exam Vital Signs: Last Vital Signs Pulse 72 01/19/23 14:44 BP 126/88 01/19/23 14:44 Pulse Ox 95 01/19/23 14:44 Oxygen Delivery Method Room Air 01/19/23 14:44 Const General: cooperative, comfortable and no acute distress Nutritional Appearance: obese Orientation/consciousness: patient oriented x3 Limitations: language barrier Resp Effort & Inspection: normal respiratory effort Auscultation: no rales, no rhonchi and no wheezes Cardio Rate: regular rate Rhythm: regular rhythm Heart sounds: S1 normal heart sound present and S2 normal heart sound present GI Inspection: Yes obesity Palpation (GI): Soft to palpation and nontender Auscultation: normal bowel sounds Skin General skin exam: no rashes or lesions noted and dry skin Neuro General: patient oriented x3 Extrem General: Yes full ROM and Yes venous stasis dermatitis Psych Appearance: well kempt Speech and movement: Normal speech and movement present Affect: Labile affect present Thought content: Normal thought content present Assessment & Plan Assessment & Plan (1) REAGAN (obstructive sleep apnea): Code(s): G47.33 - Obstructive sleep apnea (adult) (pediatric) Plan: Severe degree of sleep apena. The AHI was 23/hr and oxygen estefania was 75%. (2) Daytime sleepiness: Code(s): R40.0 - Somnolence (3) Chronic insomnia: Code(s): F51.04 - Psychophysiologic insomnia Plan Advised patient to try BiPAP 10/5 with 1LPM supplement oxygen treat his severe degree of sleep apnea. Stressed compliance, use nightly and more than 4 hours. Advised patient to try while he is awake, when he watches TV to get used to it. Wt reduction advised. Coding Level of Care Code Est Pt Level 3 (72241) Diagnoses REAGAN (obstructive sleep apnea) G47.33 Daytime sleepiness R40.0 Chronic insomnia F51.04
== END 2023-01-19 15:11 | disposition home or self-care (01) ==
PROVIDERS: Visit Provider Nurse Practitioner Family
DX: G47.33 Obstructive sleep apnea (adult) (pediatric) (principal); R40.0 Somnolence; F51.04 Psychophysiologic insomnia
CPT/HCPCS: 99213

== ENCOUNTER → 2023-01-19 14:30 | Outpatient (BNVA) | payer OTHER, SELFPAY | PROVIDERS: Visit Provider Nurse Practitioner Family | DX: G47.33 Obstructive sleep apnea (adult) (pediatric) (principal); F51.04 Psychophysiologic insomnia; R40.0 Somnolence | CPT/HCPCS: 99212 ==

== ENCOUNTER 2023-02-09 12:59 | Outpatient (REF) | payer OTHER, SELFPAY | END 2023-02-09 13:00 | disposition home or self-care (01) | LOC: HO.NEURO 12:59 | PROVIDERS: PCP Internal Medicine Geriatric Medicine; Visit Provider Internal Medicine Geriatric Medicine | DX: Z13.89 Encounter for screening for other disorder (principal) ==

== ENCOUNTER 2023-02-16 13:02 | Outpatient (REF) | payer OTHER, SELFPAY ==
--- NOTE | 2023-02-16 | EMG_ITS ---
Chief complaint: Left hand numbness Reason for referral: Evaluate for Carpal Tunnel Syndrome Referred by: Dr. Brandon Procedure done: Left upper extremity NCS/EMG Precautions and/or limitations: None The limb temperature was monitored continuously and remained between 32-36 degrees C during the performance of the NCS. Nerve Conduction Studies Anti Sensory Summary Table ?Stim Site NR Onset (ms) Norm Onset (ms) Peak (ms) Norm Peak (ms) O-P Amp (?V) Norm O-P Amp Site1 Site2 Delta-0 (ms) Dist (cm) Js (m/s) Norm Js (m/s) Left Median Anti Sensory (2nd Digit) Wrist NR <3.6 >10 Wrist 2nd Digit 14.0 Left Radial Anti Sensory (Thumb) Forearm ? 1.6 2.2 <3.1 30.3 Forearm Thumb 1.6 0.0 Left Ulnar Anti Sensory (5th Digit) Wrist ? 3.1 3.7 <3.7 18.1 >15.0 Wrist 5th Digit 3.1 14.0 45 Motor Summary Table ?Stim Site NR Onset (ms) Norm Onset (ms) O-P Amp (mV) Norm O-P Amp iAmp (mV) Amp (1st) (%) Site1 Site2 Delta-0 (ms) Dist (cm) Js (m/s) Norm Js (m/s) Left Median Motor (Abd Poll Brev) Wrist ? 7.4 <3.9 2.6 >4.5 3.2 100.0 Elbow Wrist 3.3 23.5 71 >45 Elbow ? 10.7 2.0 2.5 76.9 Left Ulnar Motor (Abd Dig Minimi) Wrist ? 2.5 <3.0 3.2 >5 4.7 100.0 B Elbow Wrist 4.2 23.0 55 >45 B Elbow ? 6.7 1.4 2.3 43.7 A Elbow B Elbow 2.3 10.0 43 >45 A Elbow ? 9.0 1.4 2.2 43.7 EMG ?Side Muscle Nerve Root Ins Act Fibs Psw Amp Dur Poly Recrt Int Pat Comment Left 1stDorInt Ulnar C8-T1 Nml Nml Nml Nml Nml 0 Nml Complete Left FlexCarRad Median C6-7 Nml Nml Nml Nml Nml 0 Nml Complete Left Biceps Musculocut C5-6 Nml Nml Nml Nml Nml 0 Nml Complete Left Triceps Radial C6-7-8 Nml Nml Nml Nml Nml 0 Nml Complete Left Deltoid Axillary C5-6 Nml Nml Nml Nml Nml 0 Nml Complete Paraspinal EMG ?Side Muscle Nerve Root Ins Act Fibs Psw Comment Left Cervical Upper Rami Nml Nml Nml Left Cervical Mid Rami Nml Nml Nml Left Cervical Lower Rami Nml Nml Nml FINDINGS: Left median motor nerve showed prolonged distal latency, small amplitude and normal conduction velocity. Left ulnar motor nerve showed normal distal latency, small amplitude and slowed conduction velocit across elbow.. Left median sensory nerve showed absent response. All other nerves tested were within normal. Concentric needle EMG was performed in selected muscles of the left upper extremity and cervical paraspinals. Study did not reveal signs of electric abnormalities as shown in the table below. IMPRESSION: 1. This is an abnormal study. 2. There is electrodiagnostic evidence for left moderate-severe median neuropathy at the wrists, consistent with carpal tunnel syndrome. 3. There is also electrodiagnostic evidence for left ulnar neuropathy at the elbow. 4. There is no electrodiagnostic evidence for brachial plexopathy, or cervical radiculopathy. Thank you for your kind referral. Regine Aguayo MD, MILKA Board Certified, [place] Board [employer] and [employer] (ABPMR) Board Certified, [place] Board of Electrodiagnostic Medicine (ABEM) CODIN [id number] MTDD
== END 2023-02-16 13:03 | disposition home or self-care (01) ==
LOC: HO.NEURO 13:02
PROVIDERS: PCP Internal Medicine Geriatric Medicine; Visit Provider Internal Medicine Geriatric Medicine
DX: R20.0 Anesthesia of skin (principal); R20.2 Paresthesia of skin
CPT/HCPCS: 95886; 95909

== ENCOUNTER → 2023-02-16 13:05 | Outpatient (BNV) | payer OTHER, SELFPAY | PROVIDERS: PCP Internal Medicine Geriatric Medicine; Visit Provider Physical Medicine & Rehabilitation | DX: G56.12 Other lesions of median nerve, left upper limb (principal); G56.02 Carpal tunnel syndrome, left upper limb; G56.22 Lesion of ulnar nerve, left upper limb | CPT/HCPCS: 95886; 95909 ==

== ENCOUNTER 2023-10-14 10:53 | Outpatient (REF) | payer OTHER, SELFPAY ==
[2023-10-14 13:24] LABS: MANUAL DIFF FLAG NO
[2023-10-14 13:40] LABS: Basophils Percent Auto 0.3 % (0-2); Eosinophils Absolute Auto 0.1 X10*3/uL (0.0-0.4); Hematocrit 41.2 % (42.0-52.0); Hemoglobin 13.6 g/dl (14.0-18.0); Imm Gran Abs Auto 0.07 X10*3/uL (0.00-0.03); Imm Gran Pct Auto 0.9 % (0.0-0.4); Lymphocytes Absolute Auto 1.6 X10*3/uL (1.2-4.9); Lymphocytes Percent Auto 20.3 % (20-40); Mean Corpuscular Hemoglobin 31.4 pg (27.0-33.0); Mean Corpuscular Volume 95.2 fL (80.0-98.0); Mean Platelet Volume 10.4 fL (9.4-12.4); Monocytes Absolute Auto 0.6 X10*3/uL (0.1-1.2); Neutrophils Absolute Auto 5.5 x10*3/uL (2.0-8.3); Neutrophils Percent Auto 69.5 % (45-73); Platelet Count 198 X10*3/uL (160-400); Red Blood Count 4.33 X10*6/uL (4.60-5.80); Red Cell Distribution Width 15.2 % (11.0-16.0); White Blood Count 7.9 X10*3/uL (4.8-10.8)
[2023-10-14 14:17] LABS: Alanine Aminotransferase 17 U/L (0-40); Albumin Level 4.1 g/dL (3.5-5.0); Alkaline Phosphatase 101 U/L (39-117); Anion Gap 12 (12-20); Aspartate Amino Transferase 12 U/L (5-37); Bilirubin Total 0.3 mg/dL (0.0-1.0); Blood Urea Nitrogen 25 mg/dL (9-16); Calcium 9.5 mg/dL (8.4-10.2); Carbon Dioxide 30 mmol/L (22-29); Chloride 100 mmol/L (96-108); Cholesterol 192 mg/dL (<200); Estimated Glomerular Filt Rate > 60; Glucose Random 74 mg/dL (60-115); HDL Cholesterol 69 mg/dL (>40); LDL Cholesterol Calculated 102 mg/dL (<100); Potassium 4.2 mmol/L (3.3-5.1); Sodium 138 mmol/L (135-145); Total Protein 7.1 g/dL (6.5-8.0); Triglycerides 105 mg/dL (<150)
[2023-10-15 03:53] LABS: HIV AB/AG Nonreactive (Nonreactive); HIV Num 1 0.04 S/CO (0.00-0.99); ~HepC Num1 0.06 S/CO (0.00-0.79); ~Hepatitis C Antibody Nonreactive (Nonreactive)
== END 2023-10-14 10:54 | disposition home or self-care (01) ==
LOC: HO.HHCL 10:53
PROVIDERS: Visit Provider Internal Medicine Geriatric Medicine
DX: Z00.00 Encounter for general adult medical examination without abnormal findings (principal); F17.200 Nicotine dependence, unspecified, uncomplicated; Z11.4 Encounter for screening for human immunodeficiency virus [HIV]; Z11.59 Encounter for screening for other viral diseases
CPT/HCPCS: 36415; 80053; 80061; 85025; 86803; 87389

== ENCOUNTER 2023-12-14 12:35 | Outpatient (REF) | payer OTHER, SELFPAY ==
--- NOTE | ~2023-12-14 | XR_ITS ---
EXAMINATION: XR KNEE, RIGHT CLINICAL INFORMATION: Chronic right knee pain x1 month. COMPARISON: 07/21/2020 TECHNIQUE: AP, lateral, tunnel, and sunrise views of the right knee. FINDINGS: Osteoarthritis is most notable in the medial and patellofemoral compartments with joint space narrowing, articular sclerosis, and marginal osteophytes, more pronounced as compared to prior study, particularly at the lateral facets the patellofemoral compartment. Minimal lateral compartment osteoarthritis. No joint effusion. Fragmented osteophyte at the proximal margin of the patella. Old healed proximal fibular shaft fracture. No acute fractures. XR/XR knee RT 4V IMPRESSION: Moderate medial and patellofemoral compartment osteoarthritis, more pronounced as compared to prior.
--- NOTE | ~2023-12-14 | XR_ITS ---
EXAMINATION: XR HIP, RIGHT CLINICAL INFORMATION: Chronic hip pain x1 week. COMPARISON: None available. TECHNIQUE: Two views of the right hip. FINDINGS: Mild osteoarthritis is evident in the right hip with small marginal osteophytes. No fracture or malalignment. Bone mineralization is normal. Soft tissues are unremarkable. XR/XR hip RT min 2V IMPRESSION: Mild osteoarthritis in the right hip. No acute osseous findings.
== END 2023-12-14 12:36 | disposition home or self-care (01) ==
LOC: HO.HHCX 12:35
PROVIDERS: Visit Provider Internal Medicine Geriatric Medicine
DX: M25.561 Pain in right knee (principal); M25.551 Pain in right hip; G89.29 Other chronic pain
CPT/HCPCS: 73502; 73564

== ENCOUNTER 2024-03-08 14:53 | Outpatient (AMB) | payer OTHER, SELFPAY ==
--- NOTE | 2024-03-08 14:54 | A.OFFVIS_ITS ---
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 He states he has discoloration and pain in his left leg. Ambulates with a cane and has trouble walking. His legs swell and cramp. 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 Complaints include pain over varicosities, swelling of lower extremities, cramping, fatigue, and heaviness of the lower extremities. It has been affecting there daily activities including walking and nonhealing ulcers. It is noted more so in left leg. Patient denies any previous venous surgery or injections. Patient denies any history of DVT/ PE. Patient denies any history of phlebitis. Trial of compression includes - [id number] They now present for vascular evaluation regarding their varicose veins. [facility] Medical History Chronic back pain Chronic pulmonary embolism Current use of anticoagulant therapy History of recurrent deep vein thrombosis (DVT) Hyperlipidemia Hypertension Methadone maintenance therapy patient Morbid obesity REAGAN (obstructive sleep apnea) Personal history of nicotine dependence Thrombosed external hemorrhoid Surgical History History of excision of mass Hx of colonoscopy Family History Father History of prostate cancer Social History (Updated 01/19/23 @ 14:57 by Mary Cheung CMA) Household Members: Friend(s) Alcohol intake: never Patient Tobacco Use Status: Former Tobacco user Tobacco use type: Cigarette Years Smoked: onset 14, 1/2-1ppd x 42yrs, 30pyh Current occupational status: disabled Review of Systems Const Reports as per HPI ENT Reports no additional complaints Card Denies chest pain, Denies chest pain at rest and Denies chest pain with activity Resp Denies chest congestion and Denies cough GI Reports no additional complaints Musc Details: pain over varicosities, aching of lower extremities, swelling, cramping, heaviness and tiredness, itching Denies abnormal gait Skin/Breast Reports pruritus and Denies wounds Neuro Reports no additional complaints and Denies abnormal gait Psych Denies no additional complaints Physical Exam Const General: cooperative, healthy appearing and comfortable Orientation/consciousness: oriented to person, oriented to place and oriented to time Neck Carotids: no bruits Chest Chest palpation & inspection: normal inspection of the chest and normal palpatio n of entire chest wall Resp Effort & Inspection: normal respiratory effort and able to speak in complete sentences Cardio Rate: regular rate Heart sounds: S1 normal heart sound present and S2 normal heart sound present Peripheral pulses: Peripheral pulses 2+ throughout GI Inspection: Yes normal to inspection Skin Other: +2 edema, large rope-like varicosities greater than 4 mm CEAP Classification C5 - healed ulcer Ep - Etiology Primary As - superficial veins P - reflux General skin exam: dry skin Neuro General: oriented to person, oriented to place and oriented to time Extrem Right lower extremity: full ROM, normal capillary refill and edema Left lower extremity: full ROM, normal capillary refill and edema Psych Mental Status: mental status grossly normal Assessment & Plan Assessment & Plan (1) Varicose veins of left lower extremity with inflammation: Code(s): I83.12 - Varicose veins of left lower extremity with inflammation Category: Medical Plan: In short, the patient has evidence of venous insufficiency. I have discussed the pathophysiology with the patient. In addition I have provided informat ional material regarding venous disease to the patient. We have discussed conservative measures including compression, elevation, and exercise. I have also provided a handout regarding appropriate use of compression stockings and where to purchase good compression stockings as well. I have taken the liberty of ordering venous insufficiency testing with the patient. They will follow up with me after testing. The patient had an opportunity to ask questions regarding the treatment plan. All questions were answered. Imaging studies, laboratory studies and physical exam results were discussed and reviewed in detail. No major barriers to understanding were identified. The patient expressed understanding and agreement with the above treatment plan. The patient is aware they should cont act our office by phone for worsening of the current condition or the appearance of new symptoms. Thank you for allowing me to participate in the vascular care of this patient. If you have any questions or concerns regarding the treatment for the above condition please do not hesitate to contact me. The office telephone contact is [phone]. This note is constructed using voice recognition software. While every effort has been made to ensure accuracy, housing specialist errors may have been included. Thank you for allowing me to participate in the care of your patient. Yours sincerely, Eliecer Bui MD, FACS, R.P.V.I. Orders: Orders US venous duplex LE BI 1 Week I83.12 - Varicose veins of left lower extremity with inflammation Coding Level of Care Code New Pt Level 4 (88536) Diagnoses Varicose veins of left lower extremity with inflammation I83.12
== END 2024-03-08 15:20 | disposition home or self-care (01) ==
PROVIDERS: PCP Internal Medicine Geriatric Medicine; Visit Provider Surgery Vascular Surgery
DX: I83.12 Varicose veins of left lower extremity with inflammation (principal)
CPT/HCPCS: 99204

== ENCOUNTER → 2024-03-08 14:53 | Outpatient (BNVA) | payer OTHER, SELFPAY | PROVIDERS: PCP Internal Medicine Geriatric Medicine; Visit Provider Surgery Vascular Surgery | DX: I83.12 Varicose veins of left lower extremity with inflammation (principal) | CPT/HCPCS: 99202 ==

== ENCOUNTER 2024-03-19 10:34 | Outpatient (REF) | payer OTHER, SELFPAY ==
--- NOTE | ~2024-03-19 | US_ITS ---
EXAMINATION: US LOWER EXTREMITY VENOUS (REFLUX EXAM), BILATERAL CLINICAL INDICATION: Varicose veins of left lower extremity COMPARISON: Venous duplex of the right lower extremity dated 06/17/2022 and left lower extremity dated 08/12/2021. TECHNIQUE: Color flow triplex imaging and compression Doppler was performed to evaluate both the deep and the superficial systems bilaterally. To evaluate the superficial system, the examination was performed in the upright position. Color-flow Doppler ultrasound and compression ultrasound were utilized. In addition, maneuvers were utilized to demonstrate reflux. FINDINGS: 1. DEEP VENOUS ULTRASOUND OF THE RIGHT LOWER EXTREMITY: Common Femoral Vein: Compressible, normal respiratory variation and augmented flow. Femoral Vein: Compressible, normal color flow and augmentation. Interval resolution of the chronic appearing DVT in the right duplicated femoral vein on prior exam dated 06/17/2022. Popliteal Vein: Compressible, normal augmentation. Deep Reflux: Reflux in the right superficial femoral vein measures 2356 ms and in the right duplicated femoral vein measures 2008 ms. There is no evidence of reflux in the common femoral vein or the popliteal vein. Complex Connell's cyst in the right popliteal fossa measures 5.3 x 3.2 x 3.2 cm. 2. SUPERFICIAL ULTRASOUND WITH DOPPLER OF RIGHT LOWER EXTREMITY: GREAT SAPHENOUS VEIN: Saphenofemoral Junction: 0.8 cm; Reflux: 0 ms Proximal Thigh: 0.6 cm; Reflux: 0 ms Mid Thigh: 0.5 cm; Reflux: 1464 ms Above Knee: 0.7 cm; Reflux: 1896 ms At Knee: 0.4 cm; Reflux: 0 ms Below Knee: 0.4 cm; Reflux: 0 ms Mid Calf: 0.3 cm; Reflux: 0 ms Ankle: 0.3 cm; Reflux: 0 ms DUPLICATED MEDIAL GREAT SAPHENOUS VEIN: Saphenofemoral Junction: 0.3 cm; Reflux: 0 ms Mid Thigh: Not visualized SMALL SAPHENOUS VEIN: Saphenopopliteal Junction: 0.4 cm; Reflux: 0 ms Proximal: 0.3 cm; Reflux: 0 ms Distal: 0.3 cm; Reflux: 0 ms PERFORATORS: Location: Mid SSV Size: 0.3; Reflux: 0 ms Location: Distal thigh Size: 0.2; Reflux: 0 ms Location: Proximal calf Size: 0.2; Reflux: 0 ms Location: Mid calf Size: 0.1; Reflux: 0 ms VARICOSITIES: Location: Mid SSV Size: 0.3; Reflux: 0 ms Location: Distal thigh Size: 0.3; Reflux: 0 ms 3. DEEP VENOUS ULTRASOUND OF THE LEFT LOWER EXTREMITY: Common Femoral Vein: Compressible, normal respiratory variation and augmented flow. Femoral Vein: Stable chronic appearing thrombus in the distal femoral vein when compared to ultrasound on 08/12/2021. Popliteal Vein: Stable chronic appearing nearly occlusive thrombus when compared to ultrasound on 08/12/2021. Deep Reflux: There is reflux in the left popliteal vein that measures 1436 ms. There is no evidence of reflux in the common femoral vein or in the superficial femoral vein. There is no evidence of a Connell's cyst. Focused ultrasound at the site of palpable/visible concern in the left mid thigh (where there is a visible pump) demonstrates a subdermal cystic structure that measures 1.1 x 0.4 x 0.8 cm, which does not demonstrate internal vascularity on Doppler images. 4. SUPERFICIAL ULTRASOUND WITH DOPPLER OF LEFT LOWER EXTREMITY: GREAT SAPHENOUS VEIN: Saphenofemoral Junction: 0.9 cm; Reflux: 0 ms Proximal Thigh: 0.5 cm; Reflux: 0 ms Mid Thigh: 0.3 cm; Reflux: 0 ms Above Knee: 0.4 cm; Reflux: 0 ms At Knee: 0.4 cm; Reflux: 0 ms Below Knee: 0.3 cm; Reflux: 0 ms Mid Calf: 0.3 cm; Reflux: 0 ms Ankle: 0.3 cm; Reflux: 0 ms DUPLICATED MEDIAL GREAT SAPHENOUS VEIN: Saphenofemoral Junction: 0.3 cm; Reflux: 0 ms Mid Thigh: Not visualized SMALL SAPHENOUS VEIN: Saphenopopliteal Junction: 0.4 cm; Reflux: 0 ms Proximal: 0.4 cm; Reflux: 1180 ms Distal: 0.3 cm; Reflux: 0 ms PERFORATORS: Location: Proximal SSV Size: 0.5; Reflux: 0 ms Location: 32 cm from heel Size: 0.1; Reflux: 976 ms Location: Mid thigh Size: 0.2; Reflux: 0 ms Location: Mid calf Size: 0.2; Reflux: 0 ms Location: Distal calf Size: 0.1; Reflux: 0 ms Location: Distal calf Size: 0.4; Reflux: 0 ms VARICOSITIES: Location: Mid SSV Size: 0.3; Reflux: 0 ms Location: Mid femoral vein Size: 0.5; Reflux: 0 ms US/US venous duplex LE BI IMPRESSION: 1. Stable chronic appearing DVT in the distal left femoral vein and popliteal vein when compared to ultrasound on 08/12/2021, without evidence of extension. 2. Interval resolution of the chronic appearing DVT in the right duplicated femoral vein when compared to ultrasound on 06/17/2022. No DVT in the right lower extremity. 3. Deep venous reflux in the RIGHT superficial femoral vein, RIGHT duplicated femoral vein, and LEFT popliteal vein. 4. Segmental incompetence of the right great saphenous vein at the level of the mid and distal thigh with reflux measuring up to 1896 ms. The right great saphenous vein above and below this level is competent. 5. Focal incompetence of the left great saphenous vein at the level of the ankle with reflux measuring 1796 ms. The remainder of the left great saphenous vein above the ankle is competent. 6. Focal incompetence of the left small saphenous vein at the level of the mid calf with reflux measuring 1180 ms. The left small saphenous vein above and below this level is competent. 7. Multiple bilateral perforators and scattered bilateral varicose veins. Only one left calf administration physician demonstrates reflux, as above. 8. Focused ultrasound at the site of palpable/visible concern in the left mid thigh where there is a visible lump demonstrates a 1.1 cm subdermal cystic structure that does not demonstrate internal vascularity. This is nonspecific and may represent a sebaceous cyst. 9. Complex Connell's cyst in the right popliteal fossa measures 5.3 x 3.2 x 3.2 cm. Electronically signed by: Isela Willard MD 03/20/2024 10:01 AM EDT
== END 2024-03-19 10:35 | disposition home or self-care (01) ==
LOC: HO.US 10:34
PROVIDERS: PCP Internal Medicine Geriatric Medicine; Visit Provider Surgery Vascular Surgery
DX: I83.12 Varicose veins of left lower extremity with inflammation (principal)
CPT/HCPCS: 93970

== ENCOUNTER 2024-03-28 15:09 | Outpatient (REF) | payer OTHER, SELFPAY ==
--- NOTE | ~2024-03-28 | CT_ITS ---
EXAMINATION: CT LOW-DOSE SCREENING CHEST WITHOUT CONTRAST CLINICAL INFORMATION: Personal history of nicotine dependence. The patient has a 42 pack-year history of smoking, having quit 2 years ago. COMPARISON: CT chest 10/22/2022. TECHNIQUE: Multidetector volumetric CT imaging of the chest is performed on a Siemens SOMATOM Definition scanner without contrast using low dose technique. Additional 2D coronal and sagittal reformatted images and axial 3D maximum intensity projection (MIP) images are generated on the CT workstation. This CT examination was performed using dose optimization techniques as appropriate, variously including the following: *Automated exposure control. *Adjustment of mA and/or kV according to patient size (this includes techniques or standardized protocols for targeted exams where dose is matched to indication/reason for exam; i.e. extremities or head). *Use of iterative reconstruction technique. TOTAL EXAM DLP: 101 mGy-cm. CTDIvol: 3.27 mGy. FINDINGS: PULMONARY NODULES: No suspicious pulmonary nodules. LUNGS: Lungs bilaterally symmetrically expanded. There is mild emphysema and bronchial thickening without bronchiectasis. No effusion or pneumothorax. Central airways patent. MEDIASTINUM: No mediastinal, hilar or axillary adenopathy or free fluid collection. CORONARY ARTERY CALCIFICATION: Mild. THYROID GLAND: Unremarkable to the extent seen. CARDIOVASCULAR STRUCTURES: Aortic and heart size normal. No pericardial effusion. CHEST WALL/AXILLA: Unremarkable. UPPER ABDOMEN: Included portions of the solid organs in the upper abdomen unremarkable on noncontrast imaging. OSSEOUS STRUCTURES: No suspicious focal findings. There is a thoracic kyphosis with degenerative changes and mild anterior wedging of mid thoracic vertebral bodies. CT/CT lung screening IMPRESSION: 1. No evidence of pulmonary malignancy. 2. Mild emphysema and bronchial thickening. 3. Other incidental findings as described above. ASSESSMENT: 1. Lung-RADS Category 1: Negative. There are no nodules or there are definitely benign nodules. N/A. 2. Lung-RADS Category S: Negative. There are no clinically significant or potentially clinically significant findings not related to the lungs requiring urgent additional evaluation. RECOMMENDATION: Continued routine annual low-dose CT lung screening in 1 year is recommended. An order for CT CHEST LOW DOSE CANCER SCREENING ([id number]) can be placed. Electronically signed by: Wiliam Em MD 05/12/2024 02:29 PM [facility]
== END 2024-03-28 15:10 | disposition home or self-care (01) ==
LOC: HO.CT 15:09
PROVIDERS: PCP Internal Medicine Geriatric Medicine; Visit Provider Physician Assistant Medical
DX: Z12.2 Encounter for screening for malignant neoplasm of respiratory organs (principal); Z87.891 Personal history of nicotine dependence
CPT/HCPCS: 71271

== ENCOUNTER 2024-03-29 14:37 | Outpatient (AMB) | payer OTHER, SELFPAY ==
--- NOTE | 2024-03-29 14:43 | MHC.OFFVIS ---
Intake Visit Reasons: follow up s/p US 03/19/24 Intake Note: Patient presents for follow up US. Patient states he gets cramping at night , bilateral pain in both legs and swelling. Also has discoloration on both lower legs. Patient also states he cannot wear socks because they make the swelling worse. Accompanied by: Self / Same As Patient Allergies No Known Allergies Allergy (Verified 03/29/24 14:45) [facility] follow up s/p US 03/19/24: Details: Very pleasant 58-year-old gentleman presents for follow-up with venous insufficiency testing. He is concerned about his lower extremities in particular the swelling and discoloration. Does have dry skin which have been a source of pain and discomfort for him. Now presents for routine follow-up with venous insufficiency testing. He complains of discomfort left more so than right. [facility] Medical History Hyperlipidemia History of recurrent deep vein thrombosis (DVT) Chronic back pain Methadone maintenance therapy patient REAGAN (obstructive sleep apnea) Personal history of nicotine dependence Thrombosed external hemorrhoid Morbid obesity Hypertension Chronic pulmonary embolism Current use of anticoagulant therapy Surgical History Hx of colonoscopy History of excision of mass Family History Father History of prostate cancer Social History Household Members: Friend(s) Alcohol intake: never Patient Tobacco Use Status: Former Tobacco user Tobacco use type: Cigarette Years Smoked: onset 14, 1/2-1ppd x 42yrs, 30pyh Current occupational status: disabled Review of Systems Const Reports as per HPI ENT Reports no additional complaints Card Denies chest pain, Denies chest pain at rest and Denies chest pain with activity Resp Denies chest congestion and Denies cough GI Reports no additional complaints Musc Details: pain over varicosities, aching of lower extremities, swelling, cramping, heaviness and tiredness, itching Denies abnormal gait Skin/Breast Reports pruritus and Denies wounds Neuro Reports no additional complaints and Denies abnormal gait Psych Denies no additional complaints Physical Exam Const General: cooperative, healthy appearing and comfortable Orientation/consciousness: oriented to person, oriented to place and oriented to time Neck Carotids: no bruits Chest Chest palpation & inspection: normal inspection of the chest and normal palpation of entire chest wall Resp Effort & Inspection: normal respiratory effort and able to speak in complete sentences Cardio Rate: regular rate Heart sounds: S1 normal heart sound present and S2 normal heart sound present Peripheral pulses: Peripheral pulses 2+ throughout GI Inspection: Yes normal to inspection Skin Other: +2 edema, large rope-like varicosities greater than 4 mm CEAP Classification C4 - skin color changes Ep - Etiology Primary As - superficial veins P - reflux General skin exam: dry skin Neuro General: oriented to person, oriented to place and oriented to time Extrem Right lower extremity: full ROM, normal capillary refill and edema Left lower extremity: full ROM, normal capillary refill and edema Psych Mental Status: mental status grossly normal Results Reviewed Results Reviewed: Brief summary of venous insufficiency testing is as follows: right great saphenous vein: Focally positive mid thigh right small saphenous vein: negative right accessory vein: none present left great saphenous vein: negative left small saphenous vein: Positive mid calf left accessory vein: none present Please note there is no evidence of any venous aneurysms or significant tortuosity Assessment & Plan Assessment & Plan (1) Varicose veins of left lower extremity with inflammation: Code(s): I83.12 - Varicose veins of left lower extremity with inflammation Category: Medical Plan: This patient has varicose veins with inflammation. They continue to be a source of discomfort for the patient. The patient has tried conservative treatment with compression, leg elevation and exercise program for over 3 months time. They have been compliant with all treatment. This has provided minimal relief for the patient. I do not anticipate this course of treatment will alter the underlying etiology. The patient has been scheduled for lower extremity venous treatment inclusive of --- left small saphenous radiofrequency ablation. Risks, benefits, and complications of this procedure has been discussed in detail with the patient including but not limited to bleeding, infection, and the development of a DVT. The patient has demonstrated a clear understanding and has consented. We will schedule the patient as soon as possible. Thank you for allowing us to participate in this patient's care. If there are any questions or concerns please do not hesitate to contact us. Coding Level of Care Code Est Pt Level 4 (43411) Diagnoses Varicose veins of left lower extremity with inflammation I83.12
== END 2024-03-29 15:18 | disposition home or self-care (01) ==
PROVIDERS: PCP Internal Medicine Geriatric Medicine; Visit Provider Surgery Vascular Surgery
DX: I83.12 Varicose veins of left lower extremity with inflammation (principal)
CPT/HCPCS: 99214

== ENCOUNTER → 2024-03-29 14:37 | Outpatient (BNVA) | payer OTHER, SELFPAY | PROVIDERS: PCP Internal Medicine Geriatric Medicine; Visit Provider Surgery Vascular Surgery | DX: I83.12 Varicose veins of left lower extremity with inflammation (principal) | CPT/HCPCS: 99212 ==

== ENCOUNTER 2024-04-06 13:39 | Outpatient (AMB) | payer OTHER, SELFPAY ==
[2024-04-06 13:45] VITALS: BP 134/70; PULSE 90; O2SAT 98; BMI 38.9
--- NOTE | 2024-04-06 13:45 | MHC.OFFVIS ---
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 The patient is a 59-year-old gentleman with known history of sleep apnea. The patient also presents with dyspnea on exertion. Apparently several years ago the patient underwent a sleep study. It demonstrated moderate to severe sleep apnea with significant hypoxia. He was referred to the sleep Center. There he was placed on a APAP. Then subsequently had a titration study demonstrating that he benefits from BiPAP along with oxygen. The patient however has a hard time tolerating and had to return it. He has been struggling now with significant daytime drowsiness. His Call score is elevated 14/24. The patient has significant cardiovascular risk factors. He is also complaining of increasing dyspnea on exertion. Fgvh-pe-pfxfxhza severity. He is going to have a cardiac evaluation. In the meantime he has a history of smoking so therefore he participating in the lung cancer screening program. His CT scan was back about a month ago. I did personally reviewed. He had small pulmonary nodules that are not concerning. Although he will need follow-up. No evidence of any significant emphysema. He does have some atelectasis bilaterally likely secondary to his body habitus. He does use a rescue inhaler. Has not use it often. At this point will have him have pulmonary function studies. He will need a repeat in-lab sleep study specially since he has nocturnal hypoxia. He will return after those 2 studies in order to get him restarted on CPAP because it so crucial for him specially with his increased cardiovascular risk factors. [facility] Medical History (Updated 04/08/24 @ 21:55 by Rodrick Bhatt MD) Dyspnea Nocturnal hypoxia Hyperlipidemia History of recurrent deep vein thrombosis (DVT) Chronic back pain Methadone maintenance therapy patient FREDDIE (obstructive sleep apnea) Personal history of nicotine dependence Thrombosed external hemorrhoid Morbid obesity Hypertension Chronic pulmonary embolism Current use of anticoagulant therapy Surgical History Hx of colonoscopy History of excision of mass Family History Father History of prostate cancer Social History Household Members: Friend(s) Alcohol intake: never Patient Tobacco Use Status: Former Tobacco user Tobacco use type: Cigarette Years Smoked: onset 14, 1/2-1ppd x 42yrs, 30pyh Current occupational status: disabled Review of Systems Const Reports daytime sleepiness, Reports difficulty sleeping, Reports headache(s), Reports snoring and Reports stops breathing during sleep Eyes Reports no additional complaints ENT Reports headache(s) Card Denies chest pain Resp Reports cough, Reports snoring and Denies wheezing GI Denies abdominal pain Musc Reports no additional complaints Skin/Breast Denies rash Neuro Reports headache(s) Endo Reports no additional complaints Aller/Immun Denies wheezing Physical Exam Vital Signs: Last Vital Signs Pulse 90 04/06/24 13:45 BP 134/70 04/06/24 13:45 Pulse Ox 98 04/06/24 13:45 Oxygen Delivery Method Room Air 04/06/24 13:45 BMI result Body Mass Index 38.9 Const General: comfortable HEENT Head: Yes normal to inspection Neck Neck: Yes normal visual inspection and Yes supple Chest Chest palpation & inspection: normal inspection of the chest Resp Effort & Inspection: normal respiratory effort Auscultation: diminished lung sounds Cardio Heart sounds: S1 normal heart sound present and S2 normal heart sound present GI Palpation (GI): Soft to palpation Skin General skin exam: no rashes or lesions noted Extrem General: No clubbing and No cyanosis Assessment & Plan Assessment & Plan (1) FREDDIE (obstructive sleep apnea): Code(s): G47.33 - Obstructive sleep apnea (adult) (pediatric) Category: Medical (2) Nocturnal hypoxia: Code(s): G47.34 - Idiopathic sleep related nonobstructive alveolar hypoventilation Category: Medical (3) Dyspnea: Code(s): R06.00 - Dyspnea, unspecified Category: Medical Qualifiers: Dyspnea type: dyspnea on exertion Qualified Code(s): R06.09 - Other forms of dyspnea Plan in lab PSG PFTs F/U 2 months Orders: Orders RT PSG in-lab sleep study 04/06/24 G47.33 - Obstructive sleep apnea (adult) (pediatric), G47.34 - Idiopathic sleep related nonobstructive alveolar hypoventilation PFT pulmonary function test 04/06/24 R06.00 - Dyspnea, unspecified Coding Level of Care Code New Pt Level 4 (07184) Diagnoses FREDDIE (obstructive sleep apnea) G47.33 Nocturnal hypoxia G47.34 Dyspnea on exertion R06.09 Dyspnea type: dyspnea on exertion Time Spent (min) 35
== END 2024-04-06 14:10 | disposition home or self-care (01) ==
PROVIDERS: PCP Internal Medicine Geriatric Medicine; Visit Provider Hospitalist
DX: G47.33 Obstructive sleep apnea (adult) (pediatric) (principal); G47.34 Idiopathic sleep related nonobstructive alveolar hypoventilation; R06.09 Other forms of dyspnea
CPT/HCPCS: 99204

== ENCOUNTER → 2024-04-06 13:39 | Outpatient (BNVA) | payer OTHER, SELFPAY | PROVIDERS: PCP Internal Medicine Geriatric Medicine; Visit Provider Hospitalist | DX: G47.33 Obstructive sleep apnea (adult) (pediatric) (principal); G47.34 Idiopathic sleep related nonobstructive alveolar hypoventilation; R06.09 Other forms of dyspnea | CPT/HCPCS: 99202 ==

== ENCOUNTER 2024-04-17 15:57 | Outpatient (REF) | payer OTHER, SELFPAY ==
--- NOTE | ~2024-04-17 | XR_ITS ---
EXAMINATION: XR KNEE, LEFT CLINICAL INFORMATION: Left knee pain following a fall. COMPARISON: Left knee radiographs dated 11/17/2022. TECHNIQUE: Four views of the left knee. FINDINGS: Dmyikain-qo-xxzwqu patellofemoral as well as mild medial and lateral compartment joint space narrowing. Tricompartmental marginal osteophytes. No acute fracture or dislocation. No concerning lytic or blastic osseous lesion. Small joint effusion. Posterior central ossified loose bodies measuring up to 0.8 and 1.0 cm in greatest dimension. Overall, findings are similar when compared to the prior radiographs. XR/XR knee LT 4V IMPRESSION: Tricompartmental osteoarthritis, most severe within the patellofemoral compartment. Small joint effusion and posterior central ossified loose bodies, similar when compared to the prior radiographs. Electronically signed by: Cameron Earl MD 04/18/2024 09:14 AM JODIE
== END 2024-04-17 15:58 | disposition home or self-care (01) ==
LOC: HO.HHCX 15:57
PROVIDERS: Visit Provider Family Medicine
DX: M25.562 Pain in left knee (principal)
CPT/HCPCS: 73564

== ENCOUNTER 2024-05-22 13:51 | Outpatient (REF) | payer OTHER, SELFPAY ==
[2024-05-22 11:22] VITALS: PULSE 90; O2SAT 96
--- NOTE | 2024-05-22 13:55 | PFT_ITS ---
Indication: Dyspnea Spirometry [FEV1 to FVC 69%; FEV1 2.69 L; FVC 3.92 L. there was a trend response to bronchodilators noted. Maximum voluntary ventilation 82% predicted] Lung Volumes [Total lung capacity 92 % predicted; residual volume 122% predicted; expiratory reserve volume 40% predicted] Diffusion Capacity [DLCO 116% predicted] Comparisons [none] Interpretation [There is an obstructive ventilatory defect consistent with moderate COPD. Trend response to bronchodilators noted. Low normal maximum voluntary ventilation. Lung volumes with a trend of air trapping. Diffusing capacity is within normal limits. Clinical correlation warranted.] MTDD
== END 2024-05-22 13:52 | disposition home or self-care (01) ==
LOC: HO.RESP 13:51
PROVIDERS: PCP Internal Medicine Geriatric Medicine; Visit Provider Hospitalist
DX: R06.00 Dyspnea, unspecified (principal)
CPT/HCPCS: 94010; 94640; 94727; 94729

== ENCOUNTER → 2024-05-22 13:55 | Outpatient (BNV) | payer OTHER, SELFPAY | PROVIDERS: PCP Internal Medicine Geriatric Medicine; Visit Provider Hospitalist | DX: R06.09 Other forms of dyspnea (principal) | CPT/HCPCS: 94060; 94727; 94729 ==

== ENCOUNTER 2024-05-30 12:47 | Outpatient (REF) | payer OTHER, SELFPAY | END 2024-05-30 12:48 | disposition home or self-care (01) | LOC: HO.HOSX 12:47 | PROVIDERS: Visit Provider Physician Assistant | DX: Z13.89 Encounter for screening for other disorder (principal) ==

== ENCOUNTER 2024-06-18 12:33 | Outpatient (REF) | payer OTHER, SELFPAY ==
--- NOTE | ~2024-06-18 | XR_ITS ---
CLINICAL HISTORY: Bl hip pain coccygela pain sp fall 2w ago Exam: AP and lateral views of the sacrum and coccyx. Comparison: Right hip radiographs December 14, 2023. Findings: No displaced fractures of the sacrum or coccyx are identified. Arcuate lines of the sacrum are intact. Mild degenerative change of the sacroiliac joints. Impression: No fracture. This document has been electronically signed by: Drew Germain MD on 06/19/2024 08:32:40
--- NOTE | ~2024-06-18 | XR_ITS ---
CLINICAL HISTORY: worsening chroic pain 4 views lumbar spine Comparison: None Findings: Normal alignment. No acute fractures . Grade 1 anterolisthesis of L4 on L5. Multilevel disc space narrowing and endplate osteophyte formation, as well as facet hypertrophy. IMPRESSION: No acute findings. This document has been electronically signed by: Blanquita Cantor MD on 06/18/2024 16:40:04
--- NOTE | ~2024-06-18 | XR_ITS ---
CLINICAL HISTORY: PAIN Exam: AP pelvis with AP and frog-leg lateral views of both hips. Comparison: Right hip radiographs December 14, 2023. Findings: Bony alignment of the hip joints is anatomic. No acute fractures are identified. 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 No erosions. Sacroiliac joints and pubic symphysis are unremarkable. Impression: No fracture. This document has been electronically signed by: Drew Germain MD on 06/19/2024 08:31:38
== END 2024-06-18 12:34 | disposition home or self-care (01) ==
LOC: HO.XRAY 12:33
PROVIDERS: PCP Internal Medicine Geriatric Medicine; Referring Provider Internal Medicine; Visit Provider Internal Medicine
DX: M54.41 Lumbago with sciatica, right side (principal); M54.42 Lumbago with sciatica, left side; G47.33 Obstructive sleep apnea (adult) (pediatric); G47.34 Idiopathic sleep related nonobstructive alveolar hypoventilation; R06.09 Other forms of dyspnea; J41.0 Simple chronic bronchitis
CPT/HCPCS: 72100; 72220; 73522; 99212

== ENCOUNTER → 2024-06-18 12:56 | Outpatient (BNV) | payer OTHER, SELFPAY | PROVIDERS: PCP Internal Medicine Geriatric Medicine; Referring Provider Internal Medicine; Visit Provider Radiology Diagnostic Radiology | DX: M25.551 Pain in right hip (principal); M25.552 Pain in left hip; M53.3 Sacrococcygeal disorders, not elsewhere classified | CPT/HCPCS: 72100; 72220; 73522 ==

== ENCOUNTER 2024-06-18 14:00 | Outpatient (AMB) | payer OTHER, SELFPAY ==
[2024-06-18 14:04] VITALS: BP 110/74; PULSE 85; O2SAT 96; BMI 39.8
--- NOTE | 2024-06-18 14:04 | A.OFFVIS_ITS ---
Vital Signs 06/18/24 14:04 Height 6 ft Weight 293 lb 3.437 oz BMI 39.8 BP 110/74 Blood Pressure Location Rt brachial Position Sitting Pulse 85 Pulse Source Pulse Oximeter Pulse Oximetry (%) 96 Oxygen Delivery Method Room Air Intake Visit Reasons: Obstructive sleep apnea Allergies No Known Allergies Allergy (Verified 06/18/24 14:08) HPI Comments Details: The patient is a 59-year-old gentleman with known history of sleep apnea. The patient also presents with dyspnea on exertion. Apparently several years ago the patient underwent a sleep study. It demonstrated moderate to severe sleep apnea with significant hypoxia. He was referred to the sleep Center. There he was placed on a APAP. Then subsequently had a titration study demonstrating that he benefits from BiPAP along with oxygen. The patient however has a hard time tolerating and had to return it. He has been struggling now with significant daytime drowsiness. His Masc[place] score is elevated 14/24. The patient has significant cardiovascular risk factors. He is also complaining of increasing dyspnea on exertion. Kjop-on-ybhwrwyg severity. He is going to have a cardiac evaluation. In the meantime he has a history of smoking so therefore he participating in the lung cancer screening program. His CT scan was back about a month ago. I did personally reviewed. He had small pulmonary nodules that are not concerning. Although he will need follow-up. No evidence of any significant emphysema. He does have some atelectasis bilaterally likely secondary to his body habitus. He does use a rescue inhaler. Has not use it often. At this point will have him have pulmonary function studies. He will need a repeat in-lab sleep study specially since he has nocturnal hypoxia. He will return after those 2 studies in order to get him restarted on CPAP because it so crucial for him specially with his increased cardiovascular risk factors. 06/18/2024 the patient is here for a pulmonary follow-up visit. The patient overall has been doing fair. He is complaining significant hip pain and lower extremity discomfort. It is keeping him from walking well. He is breathing also is affected. Complains of dyspnea on exertion. He does have a rescue inhaler. Moderate severity. We did review his pulmonary function studies demonstrating moderate obstructive process consistent with COPD. Therefore ahead and start him on Anoro for maintenance. He can also use inhaler as rescue. From a sleep apnea standpoint he continues has significant daytime drowsiness with an elevated Mascoutah score 14 over 24. Needs to have a sleep study. He had an emergency to go to [place] she had to reschedule. He will call to reschedule his sleep study and then follow-up with us. Once 2nd look at this study I can not addendum to my note in order to get him on CPAP or APAP. [facility] Medical History (Updated 06/18/24 @ 22:42 by Rodrick Bhatt MD) COPD (chronic obstructive pulmonary disease) Dyspnea Nocturnal hypoxia Hyperlipidemia History of recurrent deep vein thrombosis (DVT) Chronic back pain Methadone maintenance therapy patient REAGAN (obstructive sleep apnea) Personal history of nicotine dependence Thrombosed external hemorrhoid Morbid obesity Hypertension Chronic pulmonary embolism Current use of anticoagulant therapy Surgical History Hx of colonoscopy History of excision of mass Family History Father History of prostate cancer Social History Household Members: Friend(s) Alcohol intake: never Patient Tobacco Use Status: Former Tobacco user Tobacco use type: Cigarette Years Smoked: onset 14, 1/2-1ppd x 40yrs, 30pyh Current occupational status: disabled Review of Systems Const Reports daytime sleepiness, Reports difficulty sleeping, Reports headache(s), Reports snoring and Reports stops breathing during sleep Eyes Reports no additional complaints ENT Reports headache(s) Card Denies chest pain Resp Reports cough, Reports snoring and Denies wheezing GI Denies abdominal pain Musc Reports no additional complaints Skin/Breast Denies rash Neuro Reports headache(s) Endo Reports no additional complaints Aller/Immun Denies wheezing Physical Exam Vital Signs: Last Vital Signs Pulse 85 06/18/24 14:04 BP 110/74 06/18/24 14:04 Pulse Ox 96 06/18/24 14:04 Oxygen Delivery Method Room Air 06/18/24 14:04 BMI result Body Mass Index 39.8 Const General: comfortable HEENT Head: Yes normal to inspection Neck Neck: Yes normal visual inspection and Yes supple Chest Chest palpation & inspection: normal inspection of the chest Resp Effort & Inspection: normal respiratory effort Auscultation: diminished lung sounds Cardio Heart sounds: S1 normal heart sound present and S2 normal heart sound present GI Palpation (GI): Soft to palpation Skin General skin exam: no rashes or lesions noted Extrem General: No clubbing and No cyanosis Results Reviewed Results Reviewed: PFTs 05/2025: Moderate COPD Assessment & Plan Assessment & Plan (1) REAGAN (obstructive sleep apnea): Code(s): G47.33 - Obstructive sleep apnea (adult) (pediatric) Category: Medical (2) Nocturnal hypoxia: Code(s): G47.34 - Idiopathic sleep related nonobstructive alveolar hypoventilation Category: Medical (3) Dyspnea: Code(s): R06.00 - Dyspnea, unspecified Category: Medical Qualifiers: Dyspnea type: dyspnea on exertion Qualified Code(s): R06.09 - Other forms of dyspnea (4) COPD (chronic obstructive pulmonary disease): Code(s): J44.9 - Chronic obstructive pulmonary disease, unspecified Category: Medical Qualifiers: COPD type: chronic bronchitis Chronic bronchitis type: simple Qualified Code(s): J41.0 - Simple chronic bronchitis Plan in lab PSG start Anoro BASSEM as needed F/U 4 months Medications: New umeclidinium-vilanterol 62.5-25 mcg/actuation (Anoro Ellipta) 1 inh inhalation DAILY 60 ea 11RF J44.89 - Other specified chronic obstructive pulmonary disease Coding Level of Care Code Est Pt Level 4 (94297) Diagnoses REAGAN (obstructive sleep apnea) G47.33 Nocturnal hypoxia G47.34 Dyspnea on exertion R06.09 Dyspnea type: dyspnea on exertion Simple chronic bronchitis J41.0 COPD type: chronic bronchitis Chronic bronchitis type: simple Time Spent (min) 16
== END 2024-06-18 14:41 | disposition home or self-care (01) ==
PROVIDERS: PCP Internal Medicine Geriatric Medicine; Visit Provider Hospitalist
DX: G47.33 Obstructive sleep apnea (adult) (pediatric) (principal); G47.34 Idiopathic sleep related nonobstructive alveolar hypoventilation; R06.09 Other forms of dyspnea; J41.0 Simple chronic bronchitis
CPT/HCPCS: 99214

== ENCOUNTER 2024-06-29 09:38 | Outpatient (AMB) | payer OTHER, SELFPAY ==
--- NOTE | 2024-06-29 09:40 | MHC.OFFVIS ---
Intake Visit Reasons: Left SSV RFA Accompanied by: Self / Same As Patient Allergies No Known Allergies Allergy (Verified 06/29/24 09:41) PFSH Medical History COPD (chronic obstructive pulmonary disease) Dyspnea Nocturnal hypoxia Hyperlipidemia History of recurrent deep vein thrombosis (DVT) Chronic back pain Methadone maintenance therapy patient REAGAN (obstructive sleep apnea) Personal history of nicotine dependence Thrombosed external hemorrhoid Morbid obesity Hypertension Chronic pulmonary embolism Current use of anticoagulant therapy Surgical History Hx of colonoscopy History of excision of mass Family History Father History of prostate cancer Social History Household Members: Friend(s) Alcohol intake: never Patient Tobacco Use Status: Former Tobacco user Tobacco use type: Cigarette Years Smoked: onset 14, 1/2-1ppd x 40yrs, 30pyh Current occupational status: disabled Office Procedures Vascular Office Procedure Details Details: Diagnosis:? Varicose veins with inflammation of left leg Procedure: Endovenous radiofrequency ablation of the left small saphenous vein(s) of the lower extremity with closer fast Surgeon: Eliecer Bui MD Assist: Lili MCKEON Anesthesia: Local infiltration 5 cc, Tumescent 250 cc. Estimated Blood Loss: Minimal The patient was transferred to the procedure suite and the insufficient small saphenous vein was mapped by ultrasound and diagrammed on the overlying skin. The depth and diameter of the vein(s) to be treated was documented. The varicose tributary veins and suitable access sites were identified and mapped as well. The patient was then positioned prone on the procedure table. The affected limb was prepped and draped in the usual sterile fashion. The RF catheter was placed on the sterile field, flushed and wiped down, prepared, and connected by a sterile cable. The patient was placed in a prone position and local anesthesia was instilled in the skin overlying the access site. A skin incision was made overlying the identified and mapped small saphenous vein entry site. The vein was accessed using ultrasound guidance and the Seldinger technique, a guide wire was introduced through the needle, which was then exchanged over the guide wire for a 6F sheath, which was secured in place. The guide wire was removed and the sheath was flushed. The RF catheter was placed into the vein through the sheath and preferentially, imaging was used to place the catheter tip just inferior to the saphenopopliteal junction. Additionally, it was confirmed by ultrasound guidance that the catheter tip was also placed a minimum of 1.5cm distal to the saphenopopliteal junction. After the RF catheter position was verified by ultrasound, tumescent anesthesia was infiltrated, under ultrasound guidance, precisely into the perivenous compartment along the entire length of vein from the entry site to the saphenofemoral junction until a halo of fluid was noted around the vein. The patient was appropriately position. After RF catheter position was again confirmed with ultrasound imaging, and under direct external compression along the length of the heating element, RF energy was applied. The vein was segmentally ablated by heating a 3 cm segment and then indexing the catheter forward by 2.5 cm until the treatment length is completed. Device temperature was maintained at 120 plus or minus 5 degrees C with an initial power level of 4W/cm dropping to below 2W/cm for each treatment. Total vein length treated 7.5 cm Total cycles of RF 5. Repeat ultrasound of the saphenous vein was performed, confirming successful treatment. The catheter and sheath were withdrawn and hemostasis established with direct pressure. After assuring hemostasis, the skin incision over the saphenous vein was closed with a bandage and a compression wrap was applied from the level of the foot to the most proximal level of the thigh. Discharge instructions were given to the patient inclusive of follow-up ultrasound [place] [address] - Endovenous RF, 1st Vein All charges added?: Procedure code (CPT) selection complete Assessment & Plan Assessment & Plan (1) Varicose veins of left lower extremity with inflammation: Comment: 06/29/2024 - left small saphenous vein radiofrequency ablation Code(s): I83.12 - Varicose veins of left lower extremity with inflammation Category: Medical Plan: See op note Coding Level of Care Code Procedure Only Diagnoses Varicose veins of left lower extremity with inflammation I83.12 CPT Codes Details - Vascular 1: 44359 - Endovenous RF, 1st Vein ([id number])
== END 2024-06-29 10:35 | disposition home or self-care (01) ==
PROVIDERS: PCP Internal Medicine Geriatric Medicine; Visit Provider Surgery Vascular Surgery
DX: I83.12 Varicose veins of left lower extremity with inflammation (principal)
CPT/HCPCS: 36475

== ENCOUNTER → 2024-06-29 09:38 | Outpatient (BNVA) | payer OTHER, SELFPAY | PROVIDERS: PCP Internal Medicine Geriatric Medicine; Visit Provider Surgery Vascular Surgery | DX: I83.12 Varicose veins of left lower extremity with inflammation (principal) | CPT/HCPCS: 36475; J2003; J2004 ==

== ENCOUNTER 2024-07-12 14:15 | Outpatient (AMB) | payer OTHER, SELFPAY ==
[2024-07-12 14:24] VITALS: BMI 39.7
--- NOTE | 2024-07-12 14:24 | A.OFFVIS_ITS ---
Vital Signs 07/12/24 14:24 Height 6 ft Weight 293 lb BMI 39.7 Intake Visit Reasons: 2 week follow up left ssv rfa Intake Note: 2 wk follow up Left SSV RFA 06/29/24. Patient states he has two ulcers that have appeared. The right leg ulcer appeared about a month ago , the left ulcer appeared 2-3 days ago. Accompanied by: Self / Same As Patient Allergies No Known Allergies Allergy (Verified 07/12/24 14:25) HPI HPI 2 week follow up left ssv rfa: Details: Very pleasant 59-year-old gentleman presents for follow-up status post left small saphenous vein ablation. Reports that the procedure went well. He does have a stitch that did cause him some discomfort. He has developed 2 small ulcerations 1 on the right pretibial surface and 1 on the left lateral surface. They have been quite uncomfortable for him. He now presents for routine postprocedure follow-up. [facility] Medical History COPD (chronic obstructive pulmonary disease) Dyspnea Nocturnal hypoxia Hyperlipidemia History of recurrent deep vein thrombosis (DVT) Chronic back pain Methadone maintenance therapy patient REAGAN (obstructive sleep apnea) Personal history of nicotine dependence Thrombosed external hemorrhoid Morbid obesity Hypertension Chronic pulmonary embolism Current use of anticoagulant therapy Surgical History Hx of colonoscopy History of excision of mass Family History Father History of prostate cancer Social History Household Members: Friend(s) Alcohol intake: never Patient Tobacco Use Status: Former Tobacco user Tobacco use type: Cigarette Years Smoked: onset 14, 1/2-1ppd x 40yrs, 30pyh Current occupational status: disabled Review of Systems Const All systems reviewed & are unremarkable except as noted in HPI and below Reports no additional complaints ENT Reports Normal hearing present Card Denies chest pain, Denies chest pain at rest, Denies chest pain with activity and Denies pedal edema Resp Denies cough GI Denies abdominal pain Musc Denies abnormal gait, Denies muscle cramps and Denies radiating pain into limb Skin/Breast Denies skin ulcer and Denies wounds Neuro Reports Normal hearing present and Denies abnormal gait Psych Reports no additional complaints Physical Exam Vital Signs: BMI result Body Mass Index 39.7 Const General: cooperative, healthy appearing and comfortable Orientation/consciousness: oriented to person, oriented to place and oriented to time HEENT Head: Yes normal to inspection Neck Neck: Yes normal visual inspection Carotids: no bruits Chest Chest palpation & inspection: normal inspection of the chest Resp Effort & Inspection: normal respiratory effort and able to speak in complete sentences Auscultation: clear to auscultation bilaterally, no crackles, no rales, no rhonchi and no wheezes Cardio Rate: regular rate Rhythm: regular rhythm Heart sounds: S1 normal heart sound present and S2 normal heart sound present Bruits: no carotid bruits Peripheral pulses: Peripheral pulses 2+ throughout GI Inspection: Yes normal to inspection Skin Wounds: no wounds Hair: normal Neuro General: oriented to person, oriented to place and oriented to time Cranial nerves: Yes CN's II-XII intact bilaterally and Yes Normal hearing present Cognition (Neuro): normal cognition Motor exam (neuro): 5/5 motor strength present throughout Extrem Other: venous exam: +1 edema 1 cm ulceration on right pretibial surface, small 0.5 cm ulceration left lateral surface. General: No clubbing, No cyanosis and Yes edema Psych Appearance: grossly normal Mental Status: mental status grossly normal Speech and movement: Normal speech and movement present Assessment & Plan Assessment & Plan (1) Varicose veins of left lower extremity with inflammation: Comment: 06/29/2024 - left small saphenous vein radiofrequency ablation Code(s): I83.12 - Varicose veins of left lower extremity with inflammation Category: Medical Plan: In short patient has done well with his venous ablation. He has developed these 2 small ulcerations. There is some surrounding erythema and I have taken the liberty of ordering antibiotics for him. We did discuss use of compression stockings, elevation, exercise. He will follow up with us in approximately 2 weeks time. Thank you for allowing us to assist in his care. Medications: New cephalexin 500 mg PO Q12H 20 caps 0RF Coding Level of Care Code Est Pt Level 4 (39448) Diagnoses Varicose veins of left lower extremity with inflammation I83.12
--- OUTSIDE RECORDS SUMMARY | 2024-07-12 18:03 | XMS_ITS | Encounter Summary ---
Author Organization [employer] Address [address] [place] [address] Care Team Providers Care Licensed Professional Counselor Name Role Phone Name, Leland MIMS Primary Care Provider [phone] Encounter Details Date Type Department Care Team (Latest Contact Info) Description 07/06/2024 Travel Social History Tobacco Use Types Packs/Day Years Used Date Smoking Tobacco: Former Cigarettes Passive Smoke Exposure: Past Smokeless Tobacco: Never Comments:Stopped two months ago. Alcohol Use Standard Drinks/Week Comments Never 0 (1 standard drink = 0.6 oz pur e alcohol) Alcohol Answer Date Recorded Frequency of Alcohol Consumption Not on file 12/14/2023 Average Number of Drinks Not on file 024 Frequency of Binge Drinking Not on file 08/2023 Score 0 12/14/2023 Depression Answer Date Recorded Patient Health Questionnaire-9 Score 0 09/14/2023 Patient Health Questionnaire-9 Score 0 09/14/2023 Last PHQ-9: Questionnaire Data Not on file 0 09/14/2023 Housing Stability Answer Date Recorded What is your housing situation today? I have andrew machuca 09/06/[address] you li ve. Do you have problems with any of the following? None of the above 09/06/2023 Food Insecurity Answer Date Recorded Within the past 12 months, y ou worried that your food would run out before you got money to buy more: Never True 09/06/2023 Within the past 12 months,th e food you bought just didn't last and you didn't have enough money to get more: Never True Transportation Answer Date Recorded In the past 12 months, has l ack of transportation kept you from medical appts, meetings, work or from getting things needed for daily living? No 09/06/2023 Utilities Answer Date Recorded In the past 12 months, has t he electric, gas, oil or water company threatened to shut off services in your home? No 09/06/2023 Depression Answer Date Recorded Patient Health Questionnaire-2 Score 0 09/14/2023 Sex and Gender Information Value Date Recorded Sex Assigned at Male 04/12/2022 10:15 AM EDT Legal Sex Male 10:15 AM EDT Gender Identity Male 04/12/2022 10:15 AM EDT Sexual Orientation Straight 12/08/2023 1: 32 PM EDT Sexual Orientation Asexual 12/08/2023 1: 32 PM EDT documented as of this encounter Plan of Treatment Upcoming Encounters Date Type Department Care Team (Late st Contact Info) Description 08/09/2024 11:30 AM EST Telemedicine [facility] [address] [place] [phone] NameLeland MD [address] [place] [address] 09/17/2024 10:15 AM EDT Office Visit [facility] [address] [place] [address] Name, MD Leland [address] [place] [address] documented as of this encounter Visit Diagnoses Not on filedocumented in this encounter Additional Health Concerns Assessment Noted Time PHQ-9 Depression Total Score: 0 09/14/19 24 3:10 PM EDT documented as of this encounter Care Teams Licensed Professional Counselor Relationship Specialty Start Date End Date NameLeland MD [address] [place] [phone] PCP - General Family Medicine 08/26/15 documented as of this encounter
--- OUTSIDE RECORDS SUMMARY | 2024-07-12 18:03 | XMS_ITS | Clinical Summary ---
Author Organization [address] [facility] Address [address] [place] [address] Phone Care Team Providers Care Landscaping Specialist Name Role Phone Name, Leland MIMS Primary Care Provider [phone] Allergies No known active allergies Medications Medication Sig Dispensed Refills Start Date End Date Status DICLOFENAC SODIUM TOP Diclofenac Sodium 1 % Gel- Apply 4 g topically 2 times daily. - Apply externally Active oxyCODONE (ROXICODONE) 20 mg immediate release tablet Take by mouth 3 times daily. - Oral Active methadone (DOLOPHINE) 10 mg tablet Take 10 mg by mouth 3 times daily. - Oral Active LORazepam (ATIVAN) 1 mg tablet Take 2 Tabs by mouth at bedtime. - Oral Active gabapentin (NEURONTIN) 300 mg capsule Take 1 capsule (300 mg total) by mouth 2 (two) times a day. Active lisinopriL (PRINIVIL,ZESTRIL) 10 mg tablet Take 1 tablet (10 mg total) by mouth 1 (one) time each day. Active ammonium lactate (AmLactin) 12 % lotion Apply topically if needed for dry skin. 400 g 04/19/2024 04/19/2025 Active Active Problems Problem Noted Date Diagnosed Date Chronic pain 03/15/2024 HTN (hypertension) 03/15/2024 Rotator cuff disorder 03/15/2024 Claustrophobia 03/15/2024 Encounters Date Type Department Care Team Description 04/19/2024 2:30 PM EST Office Visit Orthopedic Surgery [facility] [address] [facility] [address] [place] [address] Drake Norman, DPM Xerosis of skin (Primary Dx); Metatarsalgia of both feet; Difficulty walking; Dermatophytosis of nail; Primary osteoarthritis of both feet; Pain in toe of right foot; Pain in toe of left foot from Last 3 Months Social History Tobacco Use Types Packs/Day Years Used Date Smoking Tobacco: Never Assessed Sex and Gender Information Value Date Recorded Sex Assigned at Not on file Gender Identity Not on file Sexual Orientation Not on file Job Start Date Occupation Industry Not on file Not on file Not on file Last Filed Vital Signs Vital Sign Reading Time Taken Comments Blood Pressure - - Pulse - - Temperature - - Respiratory Rate - - Oxygen Saturation - - Inhaled Oxygen Concentration - - Weight 132 kg (290 lb) 04/19/2024 2:42 PM EST Height 182.9 cm (6') 03/14/2024 3:43 PM EDT Body Mass Index 39.33 03/14/2024 3:43 PM EDT Plan of Treatment Health Maintenance Due Date Last Done Comments Hepatitis A Vaccines (1 of 2 - Risk 2-dose series) 1982 RSV Immunization Patients 60+ Years Old (1 - Risk 60-74 years 1-dose series) 2023 COVID-19 Vaccine ( season) 2024 06/18/2021, 10/30/2020, 10/02/2020 Colorectal Cancer Screening: Colonoscopy 03/16/2024 Hypertension/CHF/CAD Annual BMP Blood Test 03/16/2024 03/21/2015 Medicare Annual Wellness Visit 03/16/2024 Social Influencers of Health Screening 03/16/2024 Depression Screening 09/13/2024 09/14/2023 DTaP,Tdap,and Td Vaccines (3 - Td or Tdap) 03/20/2028 03/20/2018, 07/09/1998 Cholesterol Screening (Lipid Panel) 10/13/2028 10/14/2023 Zoster Vaccines Completed 08/26/2020, 06/25/2020 Pneumococcal Vaccine: Pediatrics (0 to 5 Years) and At-Risk Patients (6 to 64 Years) Aged Out 09/14/2023, 11/29/2015 No longer eligibl e based on patient's age to complete this topic HIV Screening Completed 10/14/2023 Hepatitis C Screening Completed 10/14/2023 Influenza Vaccine Completed 03/19/2024, , 03/24/2021, Additional history exists HIB Vaccines Aged Out No longer eligi ble based on patient's age to complete this topic HPV Vaccines Aged Out No longer eligi ble based on patient's age to complete this topic Hepatitis B Vaccines Aged Out No long er eligible based on patient's age to complete this topic IPV Vaccines Aged Out No longer eligi ble based on patient's age to complete this topic MMR Vaccines Aged Out No longer eligi ble based on patient's age to complete this topic Meningococcal ACWY Vaccine Aged Out N o longer eligible based on patient's age to complete this topic RSV Immunization Patients Under 20 months Aged Out No longer eligible based on patient's age to complete this topic Varicella Vaccines Aged Out No longer eligible based on patient's age to complete this topic Procedures Procedure Name Priority Date/Time Associated Diagnosis Comments ANNUAL BMP BLOOD TEST Routine 03/21/2015 from Last 3 Months or Most Recently Relevant to Health Maintenance Results * Annual BMP Blood Test (03/21/2015) Annual BMP Blood Test abstracted Historical Provider MD J LUIS Muse from Last 3 Months or Most Recently Relevant to Health Maintenance Care Teams Landscaping Specialist Relationship Specialty Start Date End Date Name, MD Leland [address] [place], [place] PCP - General 01/06/15
--- OUTSIDE RECORDS SUMMARY | 2024-07-12 18:03 | XMS_ITS | Encounter Summary ---
Author Organization [employer] Address [address] [place] [address] Care Team Providers Care Java Software Name Role Phone Name, Leland MIMS Primary Care Provider [phone] Encounter Details Date Type Department Care Team (Late st Contact Info) Description 07/19/2023 Abstract [facility] [address] [place] [address] Name, MD Leland [address] [place], [place] [phone] Social History Tobacco Use Types Packs/Day Years Used Date Smoking Tobacco: Former Cigarettes Passive Smoke Exposure: Never Smokeless Tobacco: Never Comments:Stopped two months ago. Alcohol Use Standard Drinks/Week Comments Never 0 (1 standard drink = 0.6 oz pur e alcohol) Depression Answer Date Recorded Patient Health Questionnaire-9 Score 0 09/06/2022 Housing Stability Answer Date Recorded What is your housing situation today? I have andrew machuca 03/28/[address] you li ve. Do you have problems with any of the following? None of the above 03/28/2023 Food Insecurity Answer Date Recorded Within the past 12 months, y ou worried that your food would run out before you got money to buy more: Never True 03/28/2023 Within the past 12 months,th e food you bought just didn't last and you didn't have enough money to get more: Never True Transportation Answer Date Recorded In the past 12 months, has l ack of transportation kept you from medical appts, meetings, work or from getting things needed for daily living? No 03/28/2023 Utilities Answer Date Recorded In the past 12 months, has t he electric, gas, oil or water company threatened to shut off services in your home? No 03/28/2023 Depression Answer Date Recorded Patient Health Questionnaire-2 Score 0 09/06/2022 Sex and Gender Information Value Date Recorded [...] Info) Description 08/09/2024 11:30 AM EST Telemedicine [facility] [address] [place] [phone] NameLeland MD [address] [place] [address] 09/17/2024 10:15 AM EDT Office Visit [facility] [address] [place] [phone] NameLeland MD [address] [place] [address] documented as of this encounter Procedures Procedure Name Priority Date/Time Associated Diagnosis Comments COLONOSCOPY Routine 07/14/2023 documented in this encounter Results * Hm Colonoscopy (07/14/2023) Colonoscopy Normal Normal Comment:Normal Colonoscopy r epeat 10 years Leland Brandon MD HEALTH MAINTENANCE Final Result documented in this encounter Visit Diagnoses Not on filedocumented in this encounter Additional Health Concerns Assessment Noted Time PHQ-9 Depression Total Score: 0 09/07/19 23 1:16 PM EDT documented as of this encounter Care Teams Java Software Relationship Specialty Start Date End Date NameLeland MD [address] [place] [phone] PCP - General Family Medicine 08/26/15 documented as of this encounter
--- OUTSIDE RECORDS SUMMARY | 2024-07-12 18:03 | XMS_ITS | Encounter Summary ---
Author Organization [employer] Address [address] [facility] 7t [place] [address] Care Team Providers Care Forest Ranger Name Role Phone Name, Leland MIMS Primary Care Provider [phone] Reason for Visit * Reason Comments Med Refill Encounter Details Date Type Department Care Team ([facility] st Contact Info) Description 06/20/2023 Refill [facility] [address] [place], [place] [phone] Name, MD Leland [address] [place] [address] Insomnia, unspecified type Social History Tobacco Use Types Packs/Day Years [...] Info) Description 08/09/2024 11:30 AM EST Telemedicine [facility] [address] [place] [address] NameLeland MD [address] [place] [address] 09/17/2024 10:15 AM EDT Office Visit [address] [address] NameLeland MD [address] [place] [address] documented as of this encounter Visit Diagnoses Diagnosis Insomnia, unspecified type documented in this encounter Additional Health Concerns Assessment Noted Time PHQ-9 Depression Total Score: 0 09/07/19 23 1:16 PM EDT documented as of this encounter Care Teams Forest Ranger Relationship Specialty Start Date End Date Leland Brandon MD [address] [place] [address] PCP - General Family Medicine 08/26/15 documented as of this encounter
--- OUTSIDE RECORDS SUMMARY | 2024-07-12 18:03 | XMS_ITS | Encounter Summary ---
Author Organization [employer] Address [address] [facility] 7t [place] [address] Care Team Providers Care Chinese Instructor Name Role Phone Name, Leland MIMS Primary Care Provider [phone] Reason for Visit * Reason Comments Med Refill Encounter Details Date Type Department Care Team ([facility] Contact Info) Description 10/22/2022 Refill [facility] [address] [place] [address] [phone] Name, MD Leland [address] [place] [phone] Insomnia, unspecified type Social History Tobacco Use Types Packs/Day Years Used Date Smoking Tobacco: Former Cigarettes Passive Smoke Exposure: Never Smokeless Tobacco: Never Alcohol Use Standard Drinks/Week Comments Never 0 (1 standard drink = 0.6 oz pur e alcohol) Depression Answer Date Recorded Patient Health Questionnaire-9 Score 0 09/06/2022 Depression Answer Date Recorded Patient Health Questionnaire-2 Score 0 09/06/2022 Sex and Gender Information Value Date Recorded Sex Assigned at Male 04/12/2022 10:15 AM EDT Legal Sex Male 10:15 AM EDT Gender Identity Male 04/12/2022 10:15 AM EDT Sexual Orientation Straight 12/08/2023 1: 32 PM EDT Sexual Orientation Asexual 12/08/2023 1: 32 PM EDT COVID-19 Exposure Response Date Recorded In the last 10 days, have yo u been in contact with someone who was confirmed or suspected to have Coronavirus/COVID-19? No / Unsure 10/19/2022 1:57 PM EDT documented as of this encounter Plan of Treatment Upcoming Encounters Date Type Department Care Team ([facility] Contact Info) Description 08/09/2024 11:30 AM EST Telemedicine [facility] [address] [facility] [place] [address] Name, MD Leland [facility] [place] [address] 09/17/2024 10:15 AM EDT Office Visit [facility] [facility] [place] [address] Name, [place] [address] documented as of this encounter Visit Diagnoses Diagnosis Insomnia, unspecified type documented in this encounter Additional Health Concerns Assessment Noted Time PHQ-9 Depression Total Score: 0 09/07/19 23 1:16 PM EDT documented as of this encounter Care Teams Chinese Instructor Relationship Specialty Start Date End [place] [address] PCP - General Family Medicine 08/26/15 documented as of this encounter
--- OUTSIDE RECORDS SUMMARY | 2024-07-12 18:03 | XMS_ITS | Encounter Summary ---
Author Organization [employer] Address [address] [facility] 7t [place] [address] Care Team Providers Care Dixonac Operator Name Role Phone Name, Leland MIMS Primary Care Provider [phone] Encounter Details Date Type Department Care Team ([facility] Contact Info) Description 11/22/[address] [phone] Name, MD Leland [address] [place] [address] Social History Tobacco Use Types Packs/Day Years [...] suspected to have Coronavirus/COVID-19? No / Unsure 11/17/2022 2:33 PM EDT documented as of this encounter Plan of Treatment Upcoming Encounters Date Type Department Care Team ([facility] Contact Info) Description 08/09/2024 11:30 AM EST Telemedicine [facility] [address] [place] [address] Name, MD Leland [address] [facility] [place] [address] 09/17/2024 10:15 AM EDT Office Visit [facility] [address] [facility] [address] Name, [place] [address] documented as of this encounter Visit Diagnoses Not on filedocumented in this encounter Additional Health Concerns Assessment Noted Time PHQ-9 Depression Total Score: 0 09/07/19 23 1:16 PM EDT documented as of this encounter Care Teams Dixonac Operator Relationship Specialty Start Date End Date NameLeland MD [facility] [facility] [place] [address] PCP - General Family Medicine 08/26/15 documented as of this encounter
--- OUTSIDE RECORDS SUMMARY | 2024-07-12 18:03 | XMS_ITS | Encounter Summary ---
Author Organization [employer] Address [address] [facility] 7t [place] [address] Care Team Providers Care Cissp Name Role Phone Name, Leland MIMS Primary Care Provider [phone] Reason for Visit * Reason Onset Date Comments Med Refill 01/02/2024 Encounter Details Date Type Department Care Team ([facility] st Contact Info) Description 01/02/[address] [facility] [address] [place] [address] Name, MD Leland [address] [place] [address] Med Refill Social History Tobacco Use Types Packs/Day Years Used Date Smoking Tobacco: Former Cigarettes Passive Smoke Exposure: Current Smokeless Tobacco: Never Comments:Stopped two months ago. [...] PM EDT documented as of this encounter Miscellaneous Notes * Telephone Encounter - Serenity Vogt LPN - 01/02/2024 10:59 AM EDT Medication pended to PCP. * Telephone Encounter - Kera Quintero - 01/02/2024 10:53 AM EDT TC from pt requesting medication refill. Medications needing refill : zolpidem (Ambien) 10 MG tablet To be sent to: [facility] - [place], [place] - [address] [place] [address] documented in this encounter Plan of Treatment Upcoming Encounters Date Type Department Care Team ([facility] st Contact Info) Description 08/09/2024 11:[address] [facility] [address] [place] [phone] Name, MD Leland [address] [place] [address] 09/17/2024 10:15 AM EDT Office Visit [facility] [address] [place] [address] Name, MD Leland [address] [place] [address] documented as of this encounter Visit Diagnoses Not on filedocumented in this encounter Additional Health Concerns Assessment Noted Time PHQ-9 Depression Total Score: 0 09/14/19 24 3:10 PM EDT documented as of this encounter Care Teams Cissp Relationship Specialty Start Date End Date Name, MD Leland [address] [place] [address] PCP - General Family Medicine 08/26/15 documented as of this encounter
--- OUTSIDE RECORDS SUMMARY | 2024-07-12 18:03 | XMS_ITS | Data Portability ---
Author Organization [place] - [facility], Allergy Address [address] [place] [address] Care Team Providers Care Credit And Collections Representative Name Role Phone NAME, MARIO Primary Care Provider Assessment Encounter Date Assessment Date Assessment LastModified by Organization Details LastModified Time 11/24/2023 11/24/2023 58-year-old male with history of recurrent cerumen impaction, psoriasis affecting the external ears, and ETD s/p T-tube placement in [place] [address] Delvalle presents for follow up of ETD. Cerumen impaction removed bilaterally. Right tympanostomy tube has extruded and was removed. There is a right serous effusion. Left T-tube is patent and in good position. Audiometric testing today demonstrated a profound mixed hearing loss on the right and an essentially stable severe to profound sensorineural hearing loss on the left. We will continue to observe. Recommended gentle auto insufflation and trial of Flonase. He will follow-up with Dr. Delvalle in 2-3 months for reevaluation and possible replacement of right tympanostomy tube. Patient with chronic right-sided otalgia. Previously FOL and CT neck were benign. Patient would like a second opinion with Dr. Delvalle. This will be arranged. May consider CT temporal bone given chronic symptoms. [email or web address] Not available 11/24/2023 17:08:14 01/24/2024 01/24/2024 Patient with chronic eustachian tube dysfunction. The left tube is still in place and functional, but has significant peripheral crusting present. The right tube has extruded and he has chronic serous otitis, conductive hearing loss on top of his baseline sensorineural hearing loss and chronic sensation of pressure. Today I discussed recommendations of replacement of both tympanostomy tubes under general anesthesia. While patient would likely be a good candidate for balloon dilation of the eustachian tube, his insurance will not cover this currently. Risks and benefits of surgery discussed using principal technologist. Will begin the scheduling process and see him back at the time of surgery. Not available 01/24/2024 16:10:18 06/18/2024 06/18/2024 Patient presents postoperatively after insertion of T-tubes bilaterally 05/18. Has had a burning pain in the right ear. Physical exam reveals well placed and patent tubes without otorrhea. The skin of the right EAC is erythematous and dry though intact without edema. The conductive component of his hearing loss has resolved and he has a persistent czodckpl-hv-dmlgur neurosensory loss. Recommend updated technology; [facility] provider list provided with medical clearance and copy of he audiogram. Return in one year for repeat audiometric testing. Call sooner with perceived change. For the burning otalgia, we reviewed this may well be his chronic psoriasis. Recommend fluocinolone oil and return in 6 weeks for re-evaluation. [email or web address] Not available 06/18/2024 16:28:08 Plan of Treatment Reminders Order Date Submit Date Provider Last Modified By Organization Details Last Modified Time Details Appointments Establish ed 15 2024 02:45P M JAH WILKERSON PA-C Not available Not available Not available Lab None recorded. Referral None recorded. Procedures None recorded. Surgeries myringoto my, bilateral , with tube insertion (SURG) 2023 024 [email or web address] Not available 01/24/2024 16:11:39 Imaging None recorded. Medication Orders fluocinol one acetonide oil 0.01 % ear drops 2024 025 [facility] #[id number], [address] [place], [address], 06/18/2024 15:56:32 Patient TargetsNo targets recorded. Patient InstructionsNo instructions recorded. Reason for Referral None Reported. Results Created Date Observation Date Name Description Value Unit Range Abnormal Flag Note LastModifiedBy Organization Detail LastModifiedTime 11/28/19 24 audio gram No observ ation record ed. BARCODE Not Available 2023 08:40:01 01/31/20 24 10/08/2020 imagi ng/di agnos tic resul t No observ ation record ed. [email or web address] Not Available 20:07:38 01/31/20 24 04/28/2020 imagi ng/di agnos tic resul t No observ ation record ed. [email or web address] Not Available 20:07:51 01/31/20 24 04/28/2020 imagi ng/di agnos tic resul t No observ ation record ed. [email or web address] Not Available 20:07:52 01/31/20 24 04/28/2020 audio gram No observ ation record ed. [email or web address] Not Available 20:08:56 06/19/19 audio gram No observ ation record ed. BARCODE Not Available 2024 10:49:00 Result Notes None recorded. Problems Name Problem SNOMED Code Status Onset Date Resolution Date Notes Provider Name and Address Organization Details Recorded Time History of tobacco use [id number] 03 Active 2017 History of tobacco use; Note: Date Diagnose d: 11/17/2017 2:10 PM (V15.82) Not Available [facility] 4 02:48:23 Otorrhea of right ear 29903104308 04590 Active 2015 Otorrhea , right ear; Note: Date Diagnose d: 6 10:53 AM (H92.11) Not Available [facility] 4 02:48:27 Tinnitus of left ear [id number] 06 Active 2015 Tinnitus , left ear; Note: Date Diagnose d: 6 1:49 PM (H93.12) Not Available [facility] 4 02:48:21 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 35879410 Active 2017 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, unspecif ied side; Note: Changed from M26.62 to M26.629 (01/08/20 23 2:39 PM) , Date Diagnose d: 11/17/2017 2:11 PM (M26.62) Not Available [facility] 4 02:48:26 Otalgia of left ear 7116199296 Active 2017 Otalgia, left ear; Note: Date Diagnose d: 11/17/2017 2:11 PM (H92.02) Otalgi a, left ear; Note: Date Diagnose d: 6 1:23 PM (H92.02) ; Start Date : 06/27/19 16 Not Available [facility] 4 02:48:25 Adhesive middle ear disease 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 Active 2013 Adhesive middle ear disease, unspecif ied as to involvem ent; Location : right CM S Risk: minimal risk CMS Treatmen t: self-cabrera ited or minor problem Conditio n: worse No te: Date Diagnose d: 4 4:36 PM (385.10) , Patient has a mild right anterior retracti on and left myringo- incudope xy Not Available [facility] 4 02:48:23 Sensorin eural hearing loss 98684351 Active 2015 Sensorin eural hearing loss, unilater al, left ear, with unrestri cted hearing on the contrala teral side; Note: Date Diagnose d: 6 3:27 PM (H90.42) Not Available [facility] 4 02:48:28 Disorder of nasal sinus 3319547 Active 2020 Other specifie d disorder s of nose and nasal sinuses; Note: Date Diagnose d: 06/08/20 21 10:31 AM (J34.89) Not Available [facility] 4 02:48:20 Disorder of the nose 15781055 Active 2020 Other specifie d disorder s of nose and nasal sinuses; Note: Date Diagnose d: 06/08/20 21 10:31 AM (J34.89) Not Available [facility] 4 02:48:21 Psoriasi s 7253505 Active 2019 Other psoriasi s; Note: Date Diagnose d: 0 11:50 AM (L40.8) Not Available [facility] 4 02:48:27 Sensorin eural hearing loss in left ear 16787307114 109 Active 2015 Sensorin eural hearing loss, unilater al, left ear, with restrict ed hearing on the contrala teral side; Note: Date Diagnose d: 06/01/20 16 2:10 PM (H90.A22 ) Not Available [facility] 4 02:48:29 Sensorin eural hearing loss of bilatera l ears 692039398 Active 2019 [facility] Bilatera lly; Note: Date Diagnose d: 4 4:08 PM (389.18) , Patient with bilatera l sensorin eural hearing loss affectin g all frequenc ie. Recommen d amplific ation, patient provided with a copy of [facility] audiogra m, medical clearanc e for hearing aids, and a list of [facility] hearing aid dispense rs. Follow up as needed ; Start Date : 03/12/20 14 Senso rineural hearing loss, bilatera l; Note: Date Diagnose d: 04/28/20 20 11:59 AM (H90.3) Sensor ineural hearing loss, bilatera l; Note: Date Diagnose d: 6 1:49 PM (H90.3) ; Start Date : 06/27/19 16 Not Available [facility] 4 02:48:24 Chronic serous otitis media of left ear 147936842 Active 2015 Chronic serous otitis media, left ear; Note: Date Diagnose d: 6 2:21 PM (H65.22) Not Available [facility] 4 02:48:28 Chronic serous otitis media 47421934 Active 2013 Chronic serous otitis media; Location : right CM S Risk: minimal risk CMS Treatmen t: self-cabrera ited or minor problem Conditio n: worse No te: Date Diagnose d: 4 4:36 PM (381.10) , Patient has right sided middle ear effusion . Patient also examined by Dr Delvalle who would not recommen d myringot elian with tube as patient would still require amplific ation despite procedur e given severity of hearing loss Not Available [facility] 4 02:48:22 Mixed conducti ve and sensorin eural hearing loss of right ear 01219400824 105 Active 2015 Mixed conducti ve and sensorin eural hearing loss, unilater al, right ear, with unrestri cted hearing on the contrala teral side; Note: Date Diagnose d: 6 3:27 PM (H90.71) Note: Date Diagnose d: 6 3:27 PM (H90.71) ; Start Date : 02/24/20 16 Mixed conducti ve and sensorin eural hearing loss, unilater al, right ear with restrict ed hearing on the contrala teral side; Note: Date Diagnose d: 06/01/20 16 2:10 PM (H90.A31 ) Note: Date Diagnose d: 06/01/20 16 2:10 PM (H90.A31 ) Not Available [facility] 4 01:08:24 Tobacco user [id number] Completed 201701/24/2024 Tobacco use; Note: Date Diagnose d: 8 11:00 AM (Z72.0) JABARI DELVALLE MD [address] [place] [address], [place], [address] , [facility] 4 16:10:42 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 2016 Other specifie d superfic ial mycoses; Note: Date Diagnose d: 7 1:41 PM (B36.8) Not Available [facility] 4 02:48:28 Dysfunct ion of eustachi an tube 75439543 Active 2013 Eustachi an tube dysfunct ion; Note: Date Diagnose d: 4 4:08 PM (381.81) Not Available [facility] 4 02:48:25 Otalgia 84763362 Active 2014 Otalgia; Note: Date Diagnose d: 5 2:02 PM (388.70) Not Available [facility] 4 02:48:29 Referred otalgia 94321382 Active 2019 Otalgia secondar y to TMJ; Note: Date Diagnose d: 0 2:21 PM (388.72) Not Available [facility] 4 02:48:30 Impacted cerumen 11319611 Active 2014 Impacted cerumen; [facility] Treatmen t: lupillos hed problem (to examiner ): stable or improved Note: Date Diagnose d: 5 1:42 PM (380.4) Not Available [facility] 4 02:48:23 Itching of skin 176487358 Active 2019 Other pruritus ; Note: Date Diagnose d: 0 2:25 PM (L29.8) Not Available [facility] 4 02:48:21 Impacted cerumen in right ear 22898349293 13586 Active 2016 Impacted cerumen, right ear; Note: Date Diagnose d: 7 4:26 PM (H61.21) Not Available [facility] 4 02:48:26 Impacted cerumen of bilatera l ears 43290162962 58078 Active 2016 Impacted cerumen, bilatera l; Note: Date Diagnose d: 7 1:58 PM (H61.23) Not Available [facility] 4 02:48:29 Chronic serous otitis media of right ear 981279231 Active 2015 Chronic serous otitis media, right ear; Note: Date Diagnose d: 6 3:57 PM (H65.21) Not Available [facility] 4 02:48:25 Bilatera l disorder of Eustachi an tubes 77954266589 91907 Active 2015 Other specifie d disorder s of Eustachi an tube, bilatera l; Note: Date Diagnose d: 6 2:21 PM (H69.83) Not Available [facility] 4 02:48:27 Otalgia of right ear 0866170907 Active 2017 Otalgia, right ear; Note: Date Diagnose d: 8 10:49 AM (H92.01) Otalgi a, right ear; Note: Date Diagnose d: 5 2:03 PM (H92.01) [mapped from ICD9 code: 388.70] ; Start Date : 01/03/20 15 Not Available [facility] 02:48:22 Chronic serous otitis media 42239219 Active 2023 JABARI DELVALLE MD [address] [facility],[address], [address] , [place] - [facility] 16:07:04 Problem Notes None recorded. Procedures Surgical History Date Name Laterality Status Provider Name and Address Organization Details Recorded Time 06/18/19 25 Air & Speech Audio with Tymps (72536, 78999 & 40722) completed BALA WASSERMAN [address] [facility],[place] [address], [place], [address], [place] - [facility] 06/18/2024 15:27:33 05/18/20 24 MYRINGOTOMY, BILATERAL, WITH TUBE INSERTION (SURG) completed Freedom Lozano [place] - [facility] 05/21/2024 11:01:39 01/24/20 24 Cerumen removal with microscope bilateral completed JABARI DELVALLE MD [address] [facility],[address], [address], [place] - [facility] 01/24/2024 16:10:57 11/24/19 24 Cerumen removal without microscope bilat completed ANTHONY APONTE PA-C [address] [facility],[address], [address], [place] - [facility] 11/24/2023 17:07:33 11/24/19 24 Tympanometry (70384) completed Roxy Rico [place] - [facility] 11/24/2023 16:43:26 11/24/19 24 Air & Bone Audio (55192) completed Roxy Rico [place] - [facility] 11/24/2023 16:45:17 Myringotomy Tube Placement completed Amber Kebede [place] - [facility] 01/24/2024 15:34:07 Imaging Results Imaging Date Name Status LastModified by Organiz ation Details LastModified Time 11/28/2023 audiogram completed BARCODE Information no t available 11/28/2023 08:40:01 10/08/2020 imaging/diagno stic result completed Information not available 01/31/2024 20:07:38 04/28/2020 imaging/diagno stic result completed Information not available 01/31/2024 20:07:51 04/28/2020 imaging/diagno stic result completed Information not available 01/31/2024 20:07:52 04/28/2020 audiogram completed Information not available 01/31/2024 20:08:56 06/19/2024 audiogram completed BARCODE Information no t available 06/19/2024 10:49:00 Procedure Notes None recorded. Medical Equipment None Reported. Allergies No known drug allergies Medications Name Sig Start Date Stop Date Status Note LastModified by Organization Details LastModified Time cyclobenz aprine 10 mg tablet TAKE 1 TABLET BY MOUTH AT BEDTIME 01/23 completed Not Available Not Available Not Available atorvasta tin 40 mg tablet 2020 active Medicati on ID: [id number] B rand Name: atorvast atin Sen d Method: E-Prescr ibed Sub s Allowed: subs OK Medic ationGen ericName : atorvast atin Not Available Not Available Not Available bupropion HCl SR 150 mg tablet,12 hr sustained -release 2020 active Medicati on ID: [id number] B rand Name: bupropio n HCl Send Method: E-Prescr ibed Sub s Allowed: subs OK Medic ationGen ericName : bupropio n HCl Not Available Not Available Not Available doxycycli ne hyclate 100 mg capsule TAKE 1 CAPSULE BY MOUTH TWICE DAILY FOR 10 DAYS. TAKE WITH A FULL GLASS OF WATER. Do not lie down for 30 minutes after taking active Not Available Not Available No t Available ammonium lactate 12 % lotion APPLY TOPICALL Y IF NEEDED FOR DRY SKIN. active Not Available Not Available No t Available Lotrisone 1 %-0.05 % topical cream 06/08 completed Medicati on ID: [id number] B rand Name: Lotrison e Send Method: E-Prescr ibed Sub s Allowed: subs OK Speci al Instruct ion: apply to external ear tid X 2 weeks Me dication GenericN emily: Lotrison e Medica tion ID: [id number] B rand Name: Lotrison e Send Method: E-Prescr ibed Sub s Allowed: subs OK Speci al Instruct ion: apply to external ear tid X 2 weeks Me dication GenericN emily: Lotrison e Not Available Not Available Not Available clotrimaz ole-betam ethasone 1 %-0.05 % lotion 06/08 completed Medicati on ID: [id number] P rescribe d By Name: TONNY Tejeda nd Name: Lotrison e Send Method: E-Prescr ibed Sub s Allowed: subs OK Speci al Instruct ion: apply to external ear tid X 2 weeks Me dication GenericN emily: Lotrison e Not Available Not Available Not Available prednison e 20 mg tablet TAKE 3 TABLETS BY MOUTH DAILY FOR 3 DAYS, TAKE 2 TABLETS DAILY FOR 3 DAYS, TAKE 1 TABLET DAILY FOR 3 DAYS, TAKE 1/2 TABLET DAILY FOR 4 DAYS active Not Available Not Available No t Available betametha sone, augmented 0.05 % topical cream 01/23 completed Medicati on ID: [id number] B rand Name: betameth asone, augmente d Send Method: E-Prescr ibed Sub s Allowed: subs OK Medic ationGen ericName : betameth asone, augmente d Not Available Not Available Not Available Ciloxan 0.3 % eye drops 01/23 completed Medicati on ID: [id number] D uration Value: 3 Prescri bed By Name: Hector Barber nd Name: Ciloxan Send Method: E-Prescr ibed Sub s Allowed: subs OK Speci al Instruct ion: Instill 4 drops twice a day into affected ear for 3 days Med icationG enericNa me: Ciloxan Not Available Not Available Not Available sulfameth oxazole 800 mg-trimet hoprim 160 mg tablet TAKE 1 TABLET BY MOUTH TWICE DAILY FOR 7 DAYS active Not Available Not Available No t Available aspirin 81 mg tablet,de layed release 2020 active Medicati on ID: [id number] B rand Name: aspirin Send Method: E-Prescr ibed Sub s Allowed: subs OK Medic ationGen ericName : aspirin Not Available Not Available Not Available acetamino phen 500 mg tablet TAKE 1 TABLET BY MOUTH EVERY 8 HOURS NEEDED FOR PAIN 01/23 completed Not Available Not Available Not Available acetamino phen ER 650 mg tablet,ex tended release TAKE 1 TABLET BY MOUTH EVERY 8 HOURS NEEDED FOR MILD PAIN, DO NOT BREAK, CRUSH, DISSOLVE OR CHEW active Not Available Not Available No t Available hydrocort isone 2.5 % topical cream with perineal applicato r 2020 active Medicati on ID: [id number] B rand Name: hydrocor tisone S end Method: E-Prescr ibed Sub s Allowed: subs OK Medic ationGen ericName : hydrocor tisone Not Available Not Available Not Available ofloxacin 0.3 % ear drops INSTILL 4 DROPS TWICE A DAY BY OTIC ROUTE FOR 3 DAYS, FOR BOTH EARS. active Not Available Not Available No t Available methocarb adolfo 750 mg tablet TAKE 1 TABLET BY MOUTH THREE TIMES DAILY FOR 10 DAYS active Not Available Not Available No t Available tamsulosi n 0.4 mg capsule 2020 active Medicati on ID: [id number] B rand Name: tamsulos in Send Method: E-Prescr ibed Sub s Allowed: subs OK Medic ationGen ericName : tamsulos in Not Available Not Available Not Available gabapenti n 800 mg tablet TAKE 1 TABLET BY MOUTH THREE TIMES DAILY active Not Available Not Available No t Available trazodone 100 mg tablet 06/08 completed Medicati on ID: [id number] Dura tion Value: 30 Brand Name: trazodon e Send Method: E-Prescr ibed Sub s Allowed: subs OK Speci al Instruct ion: TAKE 1 TABLET AT BEDTIME Medicati onGeneri cName: trazodon e Not Available Not Available Not Available Triple Antibioti c 3.5 mg-400 unit-5,00 0 unit/gram topical ointment APPLY A THIN LAYER TO AFFECTED AREA(S) DAILY DIRECTED 01/23 completed Not Available Not Available Not Available antipyrin e-benzoca ine 5.4 %-1.4 % ear drops 3 drop into right ear 01/23 completed Medicati on ID: [id number] Pr escribed By Name: TONNY Crisostomo nd Name: antipyri ne-benzo rohan Se nd Method: E-Prescr ibed Sub s Allowed: subs OK Speci al Instruct ion: as needed for discomfo rt Medic ationGen ericName : antipyri ne-benzo rohan Not Available Not Available Not Available hydrocort isone 1 % topical cream 2020 active Medicati on ID: [id number] B rand Name: hydrocor tisone S end Method: E-Prescr ibed Sub s Allowed: subs OK Medic ationGen ericName : hydrocor tisone Not Available Not Available Not Available cephalexi n 500 mg capsule TAKE 1 CAPSULE BY MOUTH EVERY 6 HOURS FOR 7 DAYS 01/23 completed Not Available Not Available Not Available dexametha sone 4 mg tablet TAKE 1 TABLET BY MOUTH WITH BREAKFAS T AND WITH DINNER FOR 7 DAYS active Not Available Not Available No t Available lisinopri l 10 mg tablet TAKE 1 TABLET BY MOUTH EVERY DAY IN THE MORNING active Not Available Not Available No t Available docusate sodium 100 mg capsule TAKE 1 CAPSULE BY MOUTH TWICE A DAY 01/23 completed Not Available Not Available Not Available hydrocort isone 2.5 % topical cream APPLY TO AFFECTED AREA(S) ON BOTH LEGS 1 TO 2 TIMES PER DAY AFTER SHOWER OR BATH 01/23 completed Not Available Not Available Not Available ammonium lactate 12 % topical cream 1 APPLICAT ION EXTERNAL LY TWICE A DAY 30 DAYS 01/23 completed Not Available Not Available Not Available lisinopri l 5 mg tablet 2020 active Medicati on ID: [id number] B rand Name: lisinopr il Send Method: E-Prescr ibed Sub s Allowed: subs OK Medic ationGen ericName : lisinopr il Not Available Not Available Not Available mometason e 0.1 % topical ointment APPLY TOPICALL Y EVERY DAY IN THE MORNING active Not Available Not Available No t Available mupirocin 2 % topical ointment 1 a small amount 2020 active Medicati on ID: [id number] D uration Value: 14 Brand Name: mupiroci n Send Method: E-Prescr ibed Sub s Allowed: subs OK Medic ationGen ericName : mupiroci n Not Available Not Available Not Available lorazepam 1 mg tablet 06/08 completed Medicati on ID: 454 Dura tion Value: 30 Brand Name: lorazepa m Send Method: E-Prescr ibed Sub s Allowed: subs OK Speci al Instruct ion: TAKE 1 TABLET BY MOUTH EVERY DAY AT BEDTIME Medicati onGeneri cName: lorazepa m Not Available Not Available Not Available ibuprofen 600 mg tablet TAKE 1 TABLET BY MOUTH TWICE DAILY active Not Available Not Available No t Available polyethyl davin glycol 3350 17 gram/dose oral powder 2020 active Medicati on ID: [id number] B rand Name: polyethy alex glycol 3350 Sen d Method: E-Prescr ibed Sub s Allowed: subs OK Medic ationGen ericName : polyethy alex glycol 3350 Not Available Not Available Not Available zolpidem 10 mg tablet TAKE 1 TABLET BY MOUTH AT BEDTIME NEEDED FOR SLEEP active Not Available Not Available No t Available fluoxetin e 20 mg capsule 06/08 completed Medicati on ID: 453 Dura tion Value: 30 Brand Name: fluoxeti ne Send Method: E-Prescr ibed Sub s Allowed: subs OK Speci al Instruct ion: TAKE ONE CAPSULE BY MOUTH EVERY DAY Medi cationGe nericNam e: fluoxeti ne Not Available Not Available Not Available fluticaso ne propionat e 50 mcg/actua tion nasal spray,carrie pension USE 1 SPRAY IN EACH NOSTRIL TWICE DAILY IN THE MORNING AND AT BEDTIME SHAKE GENTLY active Not Available Not Available No t Available loratadin e 10 mg tablet 2020 active Medicati on ID: [id number] B rand Name: loratadi ne Send Method: E-Prescr ibed Sub s Allowed: subs OK Medic ationGen ericName : loratadi ne Not Available Not Available Not Available naproxen 500 mg tablet TAKE 1 TABLET BY MOUTH TWICE A DAY WITH FOOD OR MEALS FOR 14 DAYS 01/23 completed Not Available Not Available Not Available mometason e 0.1 % topical cream 06/08 completed Medicati on ID: [id number] P [place] daniels By Name: TONNY Tejeda nd Name: angelina parrish Send Method: E-Prescr ibed Sub s Allowed: subs OK Speci al Instruct ion: Apply to external ear BID X 1 week as needed Marie Carjeny Name: angelina parrish Not Available Not Available Not Available Ventolin HFA 90 mcg/actua tion aerosol inhaler INHALE 2 PUFFS EVERY 6 HOURS NEEDED FOR WHEEZING active Not Available Not Available No t Available ciclopiro x 0.77 % topical cream 1 APPLICAT ION EXTERNAL LY TWICE A DAY 30 DAYS 01/23 completed Not Available Not Available Not Available enoxapari n 120 mg/0.8 mL subcutane ous syringe INJECT 0.8 ML (120 MG) DIRECTED TWICE DAILY active Not Available Not Available No t Available alfuzosin ER 10 mg tablet,ex tended release 24 hr 2020 active Medicati on ID: [id number] B rand Name: alfuzosi n Send Method: E-Prescr ibed Sub s Allowed: subs OK Medic ationGen ericName : alfuzosi n Not Available Not Available Not Available duloxetin e 30 mg capsule,d elayed release TAKE 1 CAPSULE BY MOUTH TWICE DAILY. DO NOT BREAK, CRUSH, DISSOLVE OR CHEW active Not Available Not Available No t Available duloxetin e 60 mg capsule,d elayed release 06/08 completed Medicati on ID: [id number] Dura tion Value: 30 Brand Name: duloxeti ne Send Method: E-Prescr ibed Sub s Allowed: subs OK Speci al Instruct ion: TAKE 1 TABLET BY MOUTH EVERY DAY [facility] cation[facility] nericNam e: duloxeti ne Not Available Not Available Not Available pregabali n 150 mg capsule 2020 active Medicati on ID: [id number] B rand Name: pregabal in Send Method: E-Prescr ibed Sub s Allowed: subs OK Medic ationGen ericName : pregabal in Not Available Not Available Not Available antipyrin e-benzoca ine 3 drop into right ear as directed 06/08 completed Medicati on ID: [id number] Br and Name: antipyri ne-benzo rohan Se nd Method: E-Prescr ibed Sub s Allowed: subs OK Speci al Instruct ion: as needed for discomfo rt Medic ationGen ericName : antipyri ne-benzo rohan Not Available Not Available Not Available varenicli ne tartrate 1 mg tablet TAKE 1 TABLET (1 MG) BY MOUTH 2 TIMES DAILY. TAKE WITH FULL GLASS OF WATER. active Not Available Not Available No t Available varenicli ne tartrate 0.5 mg tablet TAKE 1 TABLET BY MOUTH TWICE DAILY WITH FULL GLASS OF WATER 01/23 completed Not Available Not Available Not Available varenicli ne tartrate 0.5 mg (11)-1 mg (42) tablets in a dose pack PLEASE SEE ATTACHED FOR DETAILED DIRECTIO NS 01/23 completed Not Available Not Available Not Available fluocinol one acetonide oil 0.01 % ear drops Instill 3 drops into the right ear twice daily for 2 weeks then as needed. active Not Available Not Available No t Available Fish Oil 340 mg-1,000 mg capsule 2020 active Medicati on ID: [id number] B rand Name: Fish Oil Send Method: E-Prescr ibed Sub s Allowed: subs OK Medic ationGen ericName : Fish Oil Not Available Not Available Not Available hydrochlo rothiazid e 12.5 mg tablet TAKE 1 TABLET BY MOUTH EVERY DAY IN THE MORNING active Not Available Not Available No t Available Athlete's Foot (clotrima zole) 1 % topical cream 01/23 completed Medicati on ID: [id number] D uration Value: 14 Prescri bed By Name: TONNY Tejeda nd Name: Antifung al (clotrim azole) S end Method: E-Prescr ibed Sub s Allowed: subs OK Speci al Instruct ion: apply small amt to the right ear 2 x daily for 2 weeks Me dication GenericN emily: Antifung al (clotrim azole) Not Available Not Available Not Available diclofena c 1 % topical gel APPLY 2 GRAMS TO AFFECTED AREA(S) TWICE DAILY active Not Available Not Available No t Available GaviLyte- G 236 gram-22.7 4 gram-6.74 gram-5.86 gram oral solution PER GI OFFICE 01/23 completed Not Available Not Available Not Available Pradaxa 150 mg capsule TAKE 1 CAPSULE BY MOUTH TWICE A DAY 01/23 completed Not Available Not Available Not Available Eliquis 5 mg tablet 2020 active Medicati on ID: [id number] B rand Name: Eliquis Send Method: E-Prescr ibed Sub s Allowed: subs OK Medic ationGen ericName : Eliquis Not Available Not Available Not Available Anoro Ellipta 62.5 mcg-25 mcg/actua tion powder for inhalatio n active Not Available Not Available Not Available OxyContin 40 mg tablet,cr ush resistant ,extended release 06/01 completed Medicati on ID: [id number] Dura tion Value: 28 Reason: () Brand Name: OxyConti n Send Method: E-Prescr ibed Sub s Allowed: subs OK Speci al Instruct ion: TAKE 1 TABLET BY MOUTH EVERY 8 HOURS FOR 28 DAYS Med icationG enericNa me: OxyConti n Not Available Not Available Not Available Paxlovid 300 mg (150 mg x 2)-100 mg tablets in a dose pack TAKE 2 TABLETS (300 MG) OF NIRMATRE LVIR & 1 TABLET (100 MG) OF RITONAVI R BY MOUTH TWICE DAILY FOR 5 DAYS active Not Available Not Available No t Available Vitals Date Recorded Body height Body mass index (BMI) Body weight Provider Name and Address Organization Details Last Updated DateTime 01/24/2024 182.88 cm 38 kg/m2 630324.86 g Amber Kebede [facility] 01/24/2024 15:28:13 Date Recorded Body height Body mass index (BMI) Body weight Provider Name and Address Organization Details Last Updated DateTime 11/24/2023 182.88 cm 38 kg/m2 626298.86 g Barbie Conteh [facility] 11/24/2023 16:09:06 Social History Question Answer Notes LastModified by Organizat ion Details LastModified Time Tobacco Smoking Status Former Smoker JABARI DELVALLE MD [address] [place] [address], [phone], [facility] 01/24/2024 16:04:47 When Did You Quit Smoking? 1-5yearssinc elastcigaret te Information not available 01/24/2024 Sex: Unknown Functional Status None recorded. Mental Status None recorded. Family History Nothing Reported. Medical History Condition Response Anxiety Y Depression Y Sleep Disorder Y Past Encounters Encounter ID Performer Location Encounter Start Date Encounter Closed Date Diagnosis/Indication Diagnosis SNOMED-CT Code Diagnosis ICD10 Code Diagnosis Note [id number] DMITRI LEE MD [facility] [address] [address] 11/24/2023 15:43:29 11/24/2023 17:00:35 Bilateral disorder of Eustachian tubes 5475062162 924896 H69.83 Impacted c erumen of bilateral ears 4635205803 645162 H61.23 Otalgia of right ear 721 5277206 H92.01 Mixed cond uctive and sensorineural hearing loss of right ear 8665752873 9105 H90.A31 Profound mixed hearing loss and a Type C tympanogra m noted in the right ear. Severe to profound sensorineu ral hearing loss and a Type B tympanogra m with large volume noted in the left ear. Sensorineu ral hearing loss in left ear 1086474276 9109 H90.A22 Acute sero us otitis media of right ear 0584050067 951633 H65.01 [id number] JABARI DELVALLE MD [facility] [address] [address] 01/24/2024 15:09:42 01/24/2024 16:10:53 Bilateral disorder of Eustachian tubes 0165251649 310606 H69.83 Chronic se emmie otitis media 34995597 H65.21 Sensorineu ral hearing loss of bilateral ears 940221189 H90.3 Impacted c erumen of bilateral ears 6778258672 395561 H61.23 [id number] MARY ELLEN SWEENEY MD [facility] [address] [address] 06/18/2024 15:02:45 06/18/2024 16:05:21 Bilateral disorder of Eustachian tubes 9033205866 364727 H69.93 Right Ear:Modera te to severe SNHL with excellent speech discrimina tion.Paten t tube.Left Ear:Modera te to severe SNHL with excellent speech discrimina tion.Paten t tube. Psoriasis 7641103 L40.9 Health Concerns Section Related Observation LastModified by Organization Detai ls LastModified Time None Recorded Concern Status LastModified by Organization Details LastModified Time None Recorded Advance Directives Directive None Recorded Payers Encounter Date Sequence Insurance Name Policy Number Policy Simon Covered Member ID Simon Member ID Guarantor Name 11/24/2023 1 [employer] - [facility] [place] (MEDICARE REPLAC[place]/ADV ANTAGE - HMO) Steven Subramanian [id number] Steven Subramanian 01/24/2024 1 [facility] - DOS ON OR AFTER 2022 - ONE [employer] (MEDICARE REPLACEMENT/ADV ANTAGE - HMO) Steven Subramanian [id number] Steven Subramanian 06/18/2024 1 [facility] - DOS ON OR AFTER 2022 - ONE [employer] (MEDICARE REPLACEMENT/ADV ANTAGE - HMO) Steven Subramanian [id number] Steven Subramanian Notes Date Note Type Note Provider Name and Address Organization Details Recorded Time 11/24/2023 text/html 58-year-old male with history of recurrent cerumen impaction, psoriasis affecting the external ears, and ETD s/p T-tube placement in March [address] Delvalle presents for follow up of ETD. He continues to have right sided intermittent otalgia. Unilateral otalgia has been worked up in the past with CT neck and FOL which were both benign. He has been diagnosed with TMJ. Also notes decreased hearing and ear blockage on the right x 1 month. Denies otorrhea. He has been using fluocinolone drops for itching of the ears with improvement. DMITRI LEE MD [address] [place] [address], [phone], [facility] 11/25/2023 17:06:21 01/24/2024 text/html 58-year-old male with history of recurrent cerumen impaction, psoriasis affecting the external ears, and ETD s/p T-tube placement in March 2016 with me presents for follow up of ETD. He continues to have right sided intermittent otalgia. Unilateral otalgia has been worked up in the past with CT neck and FOL which were both benign. He has been diagnosed with TMJ.Last seen back in November at which point the right T-tube was noted to have extruded and there was a new accompanying serous middle ear effusion. Left T-tube was still in good position and patent. Patient has binaural amplification dispensed at [facility] audiology. JABARI DELVALLE MD [facility],[address], [address], [facility] 01/24/2024 16:11:26 06/18/2024 text/html 59 year old male presents for postoperative evaluation. Underwent bilateral myringotomy and placement of T-tubes on 05/18/[address] Delvalle. Patient reports the left ear has not been a problem but the right ear is constantly painful, a deep burning pain. This is unchanged from before the surgery. Drops have helped a bit with the pain in the past. He did not have any drops after his surgery, thinks his insurance must not have covered them. There is no otorrhea. He thinks his psoriasis may be inside the ears. He feels that his hearing is good, though sometimes it is better in one ear than the other, shifts between the two ears. He uses tubes at home to help him hear better, prescribed, did not bring them today. Got them in [place] some years ago. He does not have tinnitus. MARY ELLEN FOOTE MD [address] [place] [address],[address], [phone], [facility] 06/18/2024 21:22:33
--- OUTSIDE RECORDS SUMMARY | 2024-07-12 18:03 | XMS_ITS | Encounter Summary ---
Author Organization [employer] Address [address] [facility] 7t [place] [address] Care Team Providers Care Conveyancer Name Role Phone Name, Leland MIMS Primary Care Provider [phone] Encounter Details Date Type Department Care Team (Late st Contact Info) Description 06/22/2024 3:45 PM EST Telemedicine [facility] [address] [place], [place] [phone] Chrissie Cosme NP [address] [place] [address] Chronic joint pain (Primary Dx) Social History Tobacco Use Types Packs/Day Years [...] Info) Description 08/09/2024 11:30 AM EST Telemedicine [facility] [address] [place] [address] NameLeland MD [address] [place] [address] 09/17/2024 10:15 AM EDT Office Visit [facility] [address] [place] [address] NameLeland MD [address] [place] [address] documented as of this encounter Visit Diagnoses Diagnosis Chronic joint pain- Primary Pain in joint, site unspecified documented in this encounter Additional Health Concerns Assessment Noted Time PHQ-9 Depression Total Score: 0 09/14/19 24 3:10 PM EDT documented as of this encounter Care Teams Conveyancer Relationship Specialty Start Date End Date Leland Brandon MD [address] [place] [address] PCP - General Family Medicine 08/26/15 documented as of this encounter
--- OUTSIDE RECORDS SUMMARY | 2024-07-12 18:03 | XMS_ITS | Encounter Summary ---
Author Organization [employer] Address [address] [facility] [address]t [place] [address] Care Team Providers Care Transplant Nurse Practitioner Name Role Phone Name, Leland MIMS Primary Care Provider [phone] Reason for Visit * Reason Onset Date Comments Med Refill 07/28/2023 Encounter Details Date Type Department Care Team ([facility] st Contact Info) Description 07/28/[address] [facility] [address] [place] [address] Name, MD Leland [address] [place] [address] Med Refill Social History Tobacco Use Types [...] Telephone Encounter - Serenity Vogt LPN - 07/28/2023 11:52 AM EST RADIO ADJUSTER checked 07/28/23 last filled on 06/17/23 refill 2/3 patient should have 1 refill left. * Telephone Encounter - Hailee Louie - 07/28/2023 11:08 AM EST TC from pt requesting medication refill. Medications needing refill : gabapentin (Neurontin) 800 MG tablet To be sent to: [facility] - [place], [place] - [address] [place] [address] documented in this encounter Plan of Treatment Upcoming Encounters Date Type Department Care Team (Late st Contact Info) Description 08/09/2024 11:[address] [facility] [address] [place] [address] Name, MD Leland [address] [place] [address] 09/17/2024 10:15 AM EDT Office Visit [facility] [address] [place] [address] Name, MD Leland [address] [place] [address] documented as of this encounter Visit Diagnoses Not on filedocumented in this encounter Additional Health Concerns Assessment Noted Time PHQ-9 Depression Total Score: 0 09/07/19 23 1:16 PM EDT documented as of this encounter Care Teams Transplant Nurse Practitioner Relationship Specialty Start Date End Date Name, MD Leland [address] [place] [address] PCP - General Family Medicine 08/26/15 documented as of this encounter
--- OUTSIDE RECORDS SUMMARY | 2024-07-12 18:03 | XMS_ITS | Encounter Summary ---
Author Organization [employer] Address [address] [facility] 7t [place] [address] Care Team Providers Care Closing Machine Operator Name Role Phone NameLeland MD Primary Care Provider [phone] Reason for Referral * Imaging (Routine) - Authorized Specialty Diagnoses / Procedures Referred By Contac t Referred To Contact Radiology Diagnoses Severe low back pain Neurogenic claudication due to lumbar spinal stenosis Radicular leg pain Procedures MR Lumbar Spine w/o Contrast NameLeland MD [address] [place] [address] Phone: tel: fax: [address] Phone: tel: fax: Referral ID Status Reason Start Date Expiration Date V isits Requested Visits Authorized [id number] Authorized 07/06/2024 07/06/2025 1 1 Reason for Visit * Reason Comments Severe low back pain, problems walking Encounter Details Date Type Department Care Team (Late st Contact Info) Description 07/06/2024 9:00 AM EST Office Visit [facility] [address] [place] [address] [phone] Leland Brandon MD [address] [place] [phone] Neurogenic claudication due to lumbar spinal stenosis (Primary Dx); Radicular leg pain; Severe low back pain Social History Tobacco Use Types Packs/Day Years Used Date Smoking Tobacco: Former Cigarettes Passive Smoke Exposure: Past Smokeless Tobacco: Never Tobacco Cessation:Counseling Given: Not Answered Comments:Stopped two months ago. Alcohol Use Standard [...] is your housing situation today? I have andrewarvind machuca 09/06/[address] you [...] PM EDT documented as of this encounter Last Filed Vital Signs Vital Sign Reading Time Taken Comments Blood Pressure 156/93 07/06/2024 10:39 AM EST Pulse 87 07/06/2024 10:39 AM EST Temperature 36.7 ??C (98 ??F) 07/06/2024 10:39 AM EST Respiratory Rate 14 07/06/2024 10:39 AM EST Oxygen Saturation 95% 07/06/2024 10:39 AM EST Inhaled Oxygen Concentration - - Weight 133 kg (293 lb 6.4 oz) 07/06/2024 10:39 A M EST Height 182.9 cm (6') 07/06/2024 10:39 AM EST Body Mass Index 39.79 07/06/2024 10:39 AM EST documented in this encounter Progress Notes * Leland Brandon MD - 07/06/2024 9:00 AM EST Subjective Patient ID: Steven Singh is a 59 y.o. male who presents for Severe low back pain, problems walking. Patient comes for a sick visit. He is complaining of 1 month of severe low back pain. He describes radiation to the buttocks and thighs. He describes burning pain in the legs and severe difficulties walking. The patient has to walk hunched over because of the severe pain. He comes using a cane and has significant difficulty standing from a chair. He had slow and antalgic gait. He tells me he usesa walker at home. He was evaluated several times at the walk-in clinic 4. He had x-ray of the lumbar spine that shows severe DJD. He does not history of trauma and no associated GI or complaints. He responded to a short course of dexamethasone and he tells me that methocarbamol helps as well. 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 The patient is on methadone treatment for treatment of opiate dependence. The patient isalso on gabapentin that helps for the pain a little Review of Systems Constitutional: Negative for chills, fatigue and fever. HENT: Negative for sore throat. Respiratory: Negative for cough, chest tightness and shortness of breath. Cardiovascular: Negative for chest pain, palpitations and leg swelling. Gastrointestinal: Negative for abdominal pain and blood in stool. Musculoskeletal: Positive for back pain. Visit Vitals BP (!) 156/93 (BP Location: Left arm, Patient Position: Sitting, BP Cuff Size: Large adult) Pulse 87 Temp 98 ??F (36.7 ??C) (Temporal) Resp 14 Ht 6' (1.829 m) Wt 293 lb 6.4 oz (133 kg) SpO2 95% BMI 39.79 kg/m?? Smoking Status Former BSA 2.6 m?? Objective Physical Exam Constitutional: General: He is in acute distress. Appearance: He is not ill-appearing or toxic-appearing. Cardiovascular: Rate and Rhythm: Normal rate and regular rhythm. Pulmonary: Effort: Pulmonary effort is normal. No respiratory distress. Musculoskeletal: Lumbar back: Spasms and tenderness present. Neurological: Mental Status: He is oriented to person, place, and time. Gait: Gait abnormal. Comments: Antalgic gait, the patient uses armrest to get up from a chair, he walks hunched over. Heseems to be in a lot of pain when he walks [place] [address] XRay Report Signed Patient: Steven Novak MR#: [id number] : 1965 Acct:[id number] Age/Sex: 59 / M ADM Date: 06/18/24 Loc: [facility] Attending Dr: Amber Ortiz MD Ordering Physician: Stacey Wade MD Date of Service: 06/18/24 Procedure(s): XR lumbar spine 2-3V Accession Number(s): [id number] cc: Stacey Wade MD; Name,Leland MIMS CLINICAL HISTORY: worsening chroic pain 4 views lumbar spine Comparison: None Findings: Normal alignment. No acute fractures . Grade 1 anterolisthesis of L4 on L5. Multilevel disc space narrowing and endplate osteophyte formation, as well as facet hypertrophy. IMPRESSION: No acute findings. This document has been electronically signed by: Blanquita Cantor MD on 06/18/2024 16:40:04 Dictated By: Blanquita Cantor MD Signed By: <Electronically signed by Blanquita Cantor MD in OV> 06/18/24 1640 Assessment/Plan Diagnoses and all orders for this visit: Neurogenic claudication due to lumbar spinal stenosis Comments: Patient is having symptoms of neurogenic claudication likely secondary to lumbar spine DJD causing lumbar stenosis. I prescribed the patient a short course of prednisone and methocarbamol. I recommended evaluation with MRI of the lumbar spine. Follow-up televisit after MRI is done. Further recommendation based on the results and response to the medication. Orders: - MR Lumbar Spine w/o Contrast; Future Radicular leg pain - MR Lumbar Spine w/o Contrast; Future Severe low back pain - MR Lumbar Spine w/o Contrast; Future Other orders - predniSONE (Deltasone) 20 MG tablet; Take 3 tablets (60 mg) by mouth Once per day for 3 days, THEN 2 tablets (40 mg) Once per day for 3 days, THEN 1 tablet (20 mg) Once per day for 3 days, THEN 0.5tablets (10 mg) Once per day for 4 days. - methocarbamol (Robaxin) 750 MG tablet; Take 1 tablet (750 mg) by mouth 3 times daily for 10 days. documented in this encounter Plan of Treatment Upcoming Encounters Date Type Department Care Team (Late st Contact Info) Description 08/09/2024 11:30 AM EST Telemedicine [address] [address] Leland Brandon MD [address] [place] [phone] 09/17/2024 10:15 AM EDT Office Visit [address] [address] Leland Brandon MD [address] [place] [phone] Scheduled Orders Name Type Priority Associated Diagnoses Orde r Schedule MR Lumbar Spine w/o Contrast Imaging Routine Severe low back pain Neurogenic claudication due to lumbar spinal stenosis Radicular leg pain Expected: 07/06/2024, Expires: 07/06/2025 documented as of this encounter Visit Diagnoses Diagnosis Neurogenic claudication due to lumbar spinal stenosis- Primary Spinal stenosis of lumbar region Radicular leg pain Severe low back pain Lumbago documented in this encounter Additional Health Concerns Assessment Noted Time PHQ-9 Depression Total Score: 0 09/14/19 24 3:10 PM EDT documented as of this encounter Care Teams Closing Machine Operator Relationship Specialty Start Date End Date Leland Brandon MD [address] [place] [address] PCP - General Family Medicine 08/26/15 documented as of this encounter
--- OUTSIDE RECORDS SUMMARY | 2024-07-12 18:03 | XMS_ITS | Encounter Summary ---
Author Organization [employer] Address [address] [facility] [address] [place] [address] Care Team Providers Care Owner Operator Name Role Phone Name, Leland MIMS Primary Care Provider [phone] Encounter Details Date Type Department Care Team ([facility] st Contact Info) Description 03/24/2023 Telephone [facility] [address] [place], [place] [phone] Name, MD Leland [address] [place], [place] [phone] Social History Tobacco Use Types Packs/Day Years [...] encounter Miscellaneous Notes * Telephone Encounter - Chika Ocampo - 03/24/2023 3:38 PM EDT Tc from pt calling to advise PCP pt is currently admitted to [facility] and was found with blood clots to both legs. Any questions, contact pt at [phone] documented in this encounter Plan of Treatment Upcoming Encounters Date Type Department Care Team (Late st Contact Info) Description 08/09/2024 11:30 AM EST Telemedicine [facility] [address] [place] [phone] Name, MD Leland [address] [place] [phone] 09/17/2024 10:15 AM EDT Office Visit [facility] [address] [place] [phone] Name, MD Leland [address] [place] [address] documented as of this encounter Visit Diagnoses Not on filedocumented in this encounter Additional Health Concerns Assessment Noted Time PHQ-9 Depression Total Score: 0 09/07/19 23 1:16 PM EDT documented as of this encounter Care Teams Owner Operator Relationship Specialty Start Date End Date NameLeland MD [address] [place] [address] PCP - General Family Medicine 08/26/15 documented as of this encounter
--- OUTSIDE RECORDS SUMMARY | 2024-07-12 18:03 | XMS_ITS | Continuity of Care Document ---
Author Organization [place] [facility], [facility] Address [address] [place] [address] Care Team Providers Care Drafter (Cad) Electrical Name Role Phone NAME, MARIO Primary Care Provider [phone] Assessment Encounter Date Assessment Date Assessment LastModified by Organization Details LastModified Time 06/18/2024 06/18/2024 Patient presents postoperatively after insertion of T-tubes bilaterally 05/18. Has had a burning pain in the right ear. Physical exam reveals well placed and patent tubes without otorrhea. The skin of the right EAC is erythematous and dry though intact without edema. The conductive component of his hearing loss has resolved and he has a persistent mmvuvtqi-tf-prfsyb neurosensory loss. Recommend updated technology; [facility] provider list provided with medical clearance and [...] Referral None recorded. Procedures None recorded. Surgeries None recorded. Imaging None recorded. Medication Orders fluocinol one acetonide oil 0.01 % ear drops 2024 025 [facility] #[id number], [address] [place], [address], 06/18/2024 15:56:32 Patient TargetsNo targets recorded. Patient InstructionsNo instructions recorded. Reason for Referral None Reported. Results Created Date Observation Date Name Description Value Unit Range Abnormal Flag Note LastModifiedBy Organization Detail LastModifiedTime 06/19/19 audio gram No observ ation record ed. BARCODE Not Available 2024 10:49:00 Result Notes None recorded. Problems Name Problem SNOMED Code Status Onset Date Resolution Date Notes Provider Name and Address Organization Details Recorded Time History of tobacco use 96643938657 03 Active 2017 History of tobacco use; Note: Date Diagnose d: 11/17/2017 2:10 PM (V15.82) Not Available [facility] 4 02:48:23 Otorrhea of right ear [id number] 84013 Active 2015 Otorrhea , right ear; Note: Date Diagnose d: 6 10:53 AM (H92.11) Not Available [facility] 4 02:48:27 Tinnitus of left ear 37454156311 06 Active 2015 Tinnitus , left ear; Note: Date Diagnose d: 6 1:49 PM (H93.12) Not Available [facility] 4 02:48:21 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 12848394 Active 2017 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, unspecif ied side; Note: Changed from M26.62 to M26.629 (01/08/20 23 2:39 PM) , Date Diagnose d: 11/17/2017 2:11 PM (M26.62) Not Available [facility] 4 02:48:26 Otalgia of left ear 4566545663 Active 2017 Otalgia, left ear; Note: Date Diagnose d: 11/17/2017 2:11 PM (H92.02) Otalgi a, left ear; Note: Date Diagnose d: 6 1:23 PM (H92.02) ; Start Date : 06/27/19 16 Not Available [facility] 4 02:48:25 Adhesive middle ear disease 5397627 Active 2013 Adhesive middle ear disease, unspecif ied as to involvem ent; Location : right CM S Risk: minimal risk CMS Treatmen t: self-cabrera ited or minor problem Conditio n: worse No te: Date Diagnose d: 4 4:36 PM (385.10) , Patient has a mild right anterior retracti on and left myringo- incudope xy Not Available [facility] 4 02:48:23 Sensorin eural hearing loss 72945165 Active 2015 Sensorin eural hearing loss, unilater al, left ear, with unrestri cted hearing on the contrala teral side; Note: Date Diagnose d: 6 3:27 PM (H90.42) Not Available [facility] 4 02:48:28 Disorder of nasal sinus 3364054 Active 2020 Other specifie d disorder s of nose and nasal sinuses; Note: Date Diagnose d: 06/08/20 21 10:31 AM (J34.89) Not Available [facility] 4 02:48:20 Disorder of the nose 65681965 Active 2020 Other specifie d disorder s of nose and nasal sinuses; Note: Date Diagnose d: 06/08/20 21 10:31 AM (J34.89) Not Available [facility] 4 02:48:21 Psoriasi s 0878094 Active 2019 Other psoriasi s; Note: Date Diagnose d: 0 11:50 AM (L40.8) Not Available [facility] 4 02:48:27 Sensorin eural hearing loss in left ear 17352490365 109 Active 2015 Sensorin eural hearing loss, unilater al, left ear, with restrict ed hearing on the contrala teral side; Note: Date Diagnose d: 06/01/20 16 2:10 PM (H90.A22 ) Not Available [facility] 4 02:48:29 Sensorin eural hearing loss of bilatera l ears 791638736 Active 2019 [facility] Bilatera lly; Note: Date Diagnose d: 4 4:08 PM (389.18) , Patient with bilatera l sensorin eural hearing loss affectin g all frequenc ie. Recommen d amplific ation, patient provided with a copy of todays audiogra m, medical clearanc e for hearing aids, and a list of [facility] hearing aid dispense rs. Follow up as needed ; Start Date : 03/12/20 14 Senso rineural hearing loss, bilatera l; Note: Date Diagnose d: 04/28/20 20 11:59 AM (H90.3) Sensor ineural hearing loss, bilatera l; Note: Date Diagnose d: 6 1:49 PM (H90.3) ; Start Date : 06/27/19 16 Not Available [facility] 4 02:48:24 Chronic serous otitis media of left ear 033382117 Active 2015 Chronic serous otitis media, left ear; Note: Date Diagnose d: 6 2:21 PM (H65.22) Not Available [facility] 4 02:48:28 Chronic serous otitis media 15052857 Active 2013 Chronic serous otitis media; Location : right CM S Risk: minimal risk [facility] Treatmen t: self-cabrera ited or minor problem Conditio n: worse No te: Date Diagnose d: 4 4:36 PM (381.10) , Patient has right sided middle ear effusion . Patient also examined by Dr Delvalle who would not recommen d myringot elian with tube as patient would still require amplific ation despite procedur e given severity of hearing loss Not Available [facility] 4 02:48:22 Mixed conducti ve and sensorin eural hearing loss of right ear 75282168176 105 Active 2015 Mixed conducti ve and [...] 16 2:10 PM (H90.A31 ) Not Available [facility] 4 01:08:24 Tobacco user 622405602 Completed 201701/24/2024 Tobacco use; Note: Date Diagnose d: 8 11:00 AM (Z72.0) JABARI DELVALLE MD [address] [place] [address], [place], [address] , [facility] 4 16:10:42 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 2016 Other specifie d superfic ial mycoses; Note: Date Diagnose d: 7 1:41 PM (B36.8) Not Available [facility] 4 02:48:28 Dysfunct ion of eustachi an tube 89549353 Active 2013 Eustachi an tube dysfunct ion; Note: Date Diagnose d: 4 4:08 PM (381.81) Not Available [facility] 4 02:48:25 Otalgia 50503466 Active 2014 Otalgia; Note: Date Diagnose d: 5 2:02 PM (388.70) Not Available [facility] 4 02:48:29 Referred otalgia 00089634 Active 2019 Otalgia secondar y to TMJ; Note: Date Diagnose d: 0 2:21 PM (388.72) Not Available [facility] 4 02:48:30 Impacted cerumen 98139171 Active 2014 Impacted cerumen; [facility] Treatmen t: establis hed problem (to examiner ): stable or improved Note: Date Diagnose d: 5 1:42 PM (380.4) Not Available [facility] 4 02:48:23 Itching of skin 853766874 Active 2019 Other pruritus ; Note: Date Diagnose d: 0 2:25 PM (L29.8) Not Available [facility] 4 02:48:21 Impacted cerumen in right ear 20498395141 19863 Active 2016 Impacted cerumen, right ear; Note: Date Diagnose d: 7 4:26 PM (H61.21) Not Available [facility] 4 02:48:26 Impacted cerumen of bilatera l ears 54622296539 75437 Active 2016 Impacted cerumen, bilatera l; Note: Date Diagnose d: 7 1:58 PM (H61.23) Not Available [facility] 4 02:48:29 Chronic serous otitis media of right ear 636317419 Active 2015 Chronic serous otitis media, right ear; Note: Date Diagnose d: 6 3:57 PM (H65.21) Not Available [facility] 4 02:48:25 Bilatera l disorder of Eustachi an tubes 63743205397 21128 Active 2015 Other specifie d disorder s of Eustachi an tube, bilatera l; Note: Date Diagnose d: 6 2:21 PM (H69.83) Not Available [facility] 4 02:48:27 Otalgia of right ear 2638846143 Active 2017 Otalgia, right ear; Note: Date Diagnose d: 8 10:49 AM (H92.01) Otalgi a, right ear; Note: Date Diagnose d: 5 2:03 PM (H92.01) [mapped from ICD9 code: 388.70] ; Start Date : 01/03/20 15 Not Available [facility] 4 02:48:22 Chronic serous otitis media 16942207 Active 2023 JABARI DELVALLE MD [address] [place] [address], [place], [address] , [facility] 4 16:07:04 Problem Notes None recorded. Procedures Surgical History Date Name Laterality Status Provider Name and Address Organization Details Recorded Time 06/18/19 25 Air & Speech Audio with Tymps (56275, 63357 & 46594) completed BALA WASSERMAN [address] [facility],[place] [address], [place], [address], [facility] - [facility] 06/18/2024 15:27:33 05/18/20 24 MYRINGOTOMY, BILATERAL, WITH TUBE INSERTION (SURG) completed Freedom Lozano [place] [facility] 05/21/2024 11:01:39 01/24/20 24 Cerumen removal with microscope bilateral completed JABARI DELVALLE MD [address] [facility],[place] [address], [place], [address], [facility] - [facility] 01/24/2024 16:10:57 11/24/19 24 Cerumen removal without microscope bilat completed ANTHONY APONTE PA-C [address] [facility],[place] [address], [place], [address], [facility] - [facility] 11/24/2023 17:07:33 11/24/19 24 Tympanometry (89543) completed Roxy Rico [place] [facility] 11/24/2023 16:43:26 11/24/19 24 Air & Bone Audio (78103) completed Roxy Rico [place] [facility] 11/24/2023 16:45:17 Myringotomy Tube Placement completed Amber Kebede [facility] 01/24/2024 15:34:07 Imaging Results None recorded. Procedure Notes None recorded. Medical Equipment None Reported. Allergies No known drug allergies Medications Name Sig Start Date Stop Date Status Note LastModified by Organization Details LastModified Time cyclobenz aprine 10 mg tablet TAKE 1 TABLET BY MOUTH AT BEDTIME 01/23 completed Not Available Not Available Not Available atorvasta tin 40 mg tablet 2020 active Medicati on ID: 554247 B rand Name: atorvast atin Toan d Method: E-Prescr ibed Sub s Allowed: subs OK Medic ationGen ericName : atorvast atin Not Available Not Available Not Available bupropion HCl SR 150 mg tablet,12 hr sustained -release 2020 active Medicati on ID: 326335 B rand Name: bupropio n HCl Send [...] topical cream 06/08 completed Medicati on ID: 097237 B rand Name: Lotrison e Send Method: E-Prescr ibed Sub s Allowed: subs OK Speci al Instruct ion: apply to external ear tid X 2 weeks Me dication GenericN emily: Lotrison e Medica tion ID: [id number] B rand Name: Lotrison e Send Method: E-Prescr ibed Sub s Allowed: subs OK Speci al Instruct ion: apply to external ear tid X 2 weeks Me dication GenericN emily: Lotrison e Not Available Not Available Not Available clotrimaz ole-betam ethasone 1 %-0.05 % lotion 06/08 completed Medicati on ID: 868356 P rescribe d By Name: TONNY Tejeda [...] topical cream 01/23 completed Medicati on ID: 468515 B rand Name: betameth asone, augmente d Send Method: E-Prescr ibed Sub s Allowed: subs OK Medic ationGen ericName : betameth asone, augmente d Not Available Not Available Not Available Ciloxan 0.3 % eye drops 01/23 completed Medicati on ID: 727114 D uration Value: 3 Prescri bed By [...] layed release 2020 active Medicati on ID: 980916 B rand Name: aspirin Send Method: E-Prescr [...] applicato r 2020 active Medicati on ID: 252414 B rand Name: hydrocor tisone S end [...] mg capsule 2020 active Medicati on ID: 521883 B rand Name: tamsulos in Send Method: [...] right ear 01/23 completed Medicati on ID: 70342 Pr escribed By Name: TONNY Crisostomo nd Name: antipyri ne-benzo rohan Se nd Method: E-Prescr ibed Sub s Allowed: subs OK Speci al Instruct ion: as needed for discomfo rt Medic ationGen ericName : antipyri ne-benzo rohan Not Available Not Available Not Available hydrocort isone 1 % topical cream 2020 active Medicati on ID: 510788 B rand Name: hydrocor tisone S end [...] mg tablet 2020 active Medicati on ID: 075385 B rand Name: lisinopr il Send Method: E-Prescr ibed Sub s Allowed: subs OK Medic ationGen ericName : lisinopr il Not Available Not Available Not Available mometason e 0.1 % topical ointment APPLY TOPICALL Y EVERY DAY IN THE MORNING active Not Available Not Available No t Available mupirocin 2 % topical ointment 1 a small amount 2020 active Medicati on ID: 350999 D uration Value: 14 Brand Name: mupiroci [...] oral powder 2020 active Medicati on ID: 045887 B rand Name: polyethy alex glycol 3350 [...] mg tablet 2020 active Medicati on ID: 544336 B rand Name: carlotta francois Send Method: E-Prescr ibed Sub s Allowed: subs OK Medic ationGen ericName : loratadi ne Not Available Not Available Not Available naproxen 500 mg tablet TAKE 1 TABLET BY MOUTH TWICE A DAY WITH FOOD OR MEALS FOR 14 DAYS 01/23 completed Not Available Not Available Not Available mometason e 0.1 % topical cream 06/08 completed Medicati on ID: 229187 Dariana daniels By Name: TONNY Tejeda nd Name: mometaso ne Send Method: E-Prescr ibed Sub s Allowed: subs OK Speci al Instruct ion: Apply to external ear BID X 1 week as needed M hodan Merritt Name: mometaso ne Not Available Not Available Not Available Ventolin [...] 24 hr 2020 active Medicati on ID: 869926 B rand Name: alfuzosi n Send Method: [...] TAKE 1 TABLET BY MOUTH EVERY DAY Medi cationGe nericNam e: duloxeti ne Not Available Not Available Not Available pregabali n 150 mg capsule 2020 active Medicati on ID: 748219 B rand Name: pregabal in Send Method: E-Prescr ibed Sub s Allowed: subs OK Medic ationGen ericName : pregabal in Not Available Not Available Not Available antipyrin e-benzoca ine 3 drop into right ear as directed 06/08 completed Medicati on ID: 16689 Br and Name: antipyri ne-benzo rohan Se [...] mg capsule 2020 active Medicati on ID: 143441 B rand Name: Fish Oil Send Method: E-Prescr ibed Sub s Allowed: subs OK Medic ationGen ericName : Fish Oil Not Available Not Available Not Available hydrochlo rothiazid e 12.5 mg tablet TAKE 1 TABLET BY MOUTH EVERY DAY IN THE MORNING active Not Available Not Available No t Available Athlete's Foot (clotrima zole) 1 % topical cream 01/23 completed Medicati on ID: 712865 D uration Value: 14 Prescri bed By Name: Nuvia Tavarez PA-C Bra nd Name: Antifung al (clotrim azole) S [...] mg tablet 2020 active Medicati on ID: 337424 B rand Name: Eliquis Send Method: E-Prescr [...] Available Not Available No t Available Vitals None Recorded Social History Question Answer Notes LastModified by Organizat ion Details LastModified Time Tobacco Smoking Status Former Smoker JABARI DELVALLE MD [address] [place] [address], [place], [address], [facility] 01/24/2024 16:04:47 When Did You Quit Smoking? 1-5yearssinc elastcigaret te [id number] Information not available 01/24/2024 Sex: Unknown Functional Status None recorded. Mental Status None recorded. Family History Nothing Reported. Medical History Condition Response Anxiety Y Depression Y Sleep Disorder Y Past Encounters Encounter ID Performer Location Encounter Start Date Encounter Closed Date Diagnosis/Indication Diagnosis SNOMED-CT Code Diagnosis ICD10 Code Diagnosis Note [id number] MARY ELLEN [place] MD [facility] [address] [address] 06/18/2024 15:02:45 06/18/2024 16:05:21 Bilateral disorder of Eustachian tubes [id number] 505667 H69.93 Right Ear:Modera te to severe SNHL with excellent speech discrimina tion.Paten t tube.Left Ear:Modera te to severe SNHL with excellent speech discrimina tion.Paten t tube. Psoriasis 1763422 L40.9 Health Concerns Section Related Observation LastModified by Organization Detai ls LastModified Time None Recorded Concern Status LastModified by Organization Details LastModified Time None Recorded Payers Encounter Date Sequence Insurance Name Policy Number Policy Simon Covered Member ID Simon Member ID Guarantor Name 06/18/2024 1 [facility] - DOS ON OR AFTER 2022 - ONE CARE (MEDICARE REPLACEMENT/ADV ANTAGE - HMO) Steven Subramanian [id number] Steven Subramanian Notes Date Note Type Note Provider Name and Address Organization Details Recorded Time 06/18/2024 text/html 59 year old male presents [...] not bring them today. Got them in [place] some years ago. He does not have tinnitus. MARY ELLEN FOOTE MD [address] [place] [address], [place], [address], [facility] 06/18/2024 21:22:33
--- OUTSIDE RECORDS SUMMARY | 2024-07-12 18:03 | XMS_ITS | Encounter Summary ---
Author Organization [employer] Address [address] [facility] [address] [place] [address] Care Team Providers Care Picker Packer Name Role Phone Name, Leland MIMS Primary Care Provider [phone] Reason for Visit * Reason Onset Date Comments Referral 07/20/2022 Encounter Details Date Type Department Care Team ([facility] st Contact Info) Description 07/20/2022 Telephone [facility] [address] [place], [place] [phone] Name, MD Leland [address] [place] [address] Referral Social History Tobacco Use Types Packs/Day Years Used Date Smoking Tobacco: Every Day Cigarettes Passive Smoke Exposure: Never Smokeless Tobacco: Never Alcohol Use Standard Drinks/Week Comments Never 0 (1 standard drink = 0.6 oz pur e alcohol) Sex and Gender Information Value Date Recorded Sex Assigned at Male 04/12/2022 10:15 AM EDT Legal Sex Male 10:15 AM EDT Gender Identity Male 04/12/2022 10:15 AM EDT Sexual Orientation Straight 12/08/2023 1: 32 PM EDT Sexual Orientation Asexual 12/08/2023 1: 32 PM EDT documented as of this encounter Miscellaneous Notes * Telephone Encounter - Devendra Staley - 07/21/2022 9:49 AM EST Gautam [place] requesting status on message below * Telephone Encounter - Huber Garcia - 07/20/2022 10:13 AM EST Marva calling [facility] for new or existing referrals for [facility], [address], [place] [address], Phone #: , Reason for referral is Chronic Severe pain left foot. Marva advised pt has an X-ray done and patient does have the symptom of Chronic pain. Advised Marva with [facility] will forward to team nurse for new referral and commissions specialist for existing referral. Please call Marva at [phone] documented in this encounter Plan of Treatment Upcoming Encounters Date Type Department Care Team (Late st Contact Info) Description 08/09/2024 11:30 AM EST Telemedicine [facility] [address] [place] [phone] Name, MD Leland [address] [place] [address] 09/17/2024 10:15 AM EDT Office Visit [facility] [address] [place] [address] Name, MD Leland [address] [place] [address] documented as of this encounter Visit Diagnoses Not on filedocumented in this encounter Care Teams Picker Packer Relationship Specialty Start Date End Date Name, MD Leland [address] [place] [address] PCP - General Family Medicine 08/26/15 documented as of this encounter
--- OUTSIDE RECORDS SUMMARY | 2024-07-12 18:03 | XMS_ITS | Encounter Summary ---
Author Organization [employer] Address [address] [facility] [address] 7[address] [place] [address] Care Team Providers Care Civil Engineering Intern Name Role Phone Name, Leland MIMS Primary Care Provider Encounter Details Date Type Department Care Team (Late st Contact Info) Description 06/18/2024 Orders Only [facility] [address] [place], [place] [phone] Amber Ortiz MD [address] [place], [place] [phone] Social History Tobacco Use Types Packs/Day Years [...] your housing situation today? I have andrew sven 09/06/[address] you li [...] Description 08/09/2024 11:30 AM EST Telemedicine [facility] [address] [place] [address] NameLeland MD [address] [place] [address] 09/17/2024 10:15 AM EDT Office Visit [address] [address] NameLeland MD [address] [place] [address] documented as of this encounter Procedures Procedure Name Priority Date/Time Associated Diagnosis Comments XR HIPS BILATERAL 3 OR 4 VIEWS WITH OR WITHOUT PELVIS Routine 06/19/2024 8:31 AM EST documented in this encounter Results * XR Hips Bilateral 3 or 4 Views with or without Pelvis (06/19/2024 8:31 AM EST) Anatomical Region Laterality Modality Lower Extremities, Hip Bilateral Radiograp hic Imaging 06/19/2024 8:31 AM EST Narrative 06/19/2024 8:32 AM EST ? [facility] ?[address] ?[place] [address] ?XRay Report ? Signed ? Patient: Moris Francisco,Steven ?MR#: M ?? [id number] ? : 1965 ?Acct:[id number] ? Age/Sex: 59 / M ?ADM Date: 06/18/24 ? Loc: HO.XRAY ? Attending Dr: Amber Ortiz MD ? Ordering Physician: Amber Ortiz MD ?? Date of Service: 06/18/24 ?? Procedure(s): XR hip RAINE min 3V w/wo pel ?? Accession Number(s): [id number] ? cc: Amber Ortiz MD; Roma,Leland MIMS ? CLINICAL HISTORY: PAIN ? Exam: AP pelvis with AP and frog-leg lateral views of both hips. ? Comparison: Right hip radiographs December 14, 2023. ? Findings: ? Bony alignment of the hip joints is anatomic. ?? No acute fractures are identified. ?? 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 ?? No erosions. ?? Sacroiliac joints and pubic symphysis are unremarkable. ? Impression: ? No fracture. ? This document has been electronically signed by: Drew Germain MD on ?? 06/19/2024 08:31:38 ? Dictated By: ?Drew Germain MD ? Signed By: ?<Electronically signed by Drew Germain MD in OV> ? 06/19/24831 ? DD/ 0 ? TD/TT: 06/19/24830 ? Cooler Supervisor: ? Procedure Note Darlin, Mery - 06/19/[address] [address] XRay Report Signed Patient: Michele Novak#: M [id number] : 1965Acct:[id number] Age/Sex: 59 / MADM Date: 06/18/24 Loc: [facility] Attending Dr: Amber Ortiz MD Ordering Physician: Amber Ortiz MD Date of Service: 06/18/24 Procedure(s): XR hip RAINE min 3V w/wo pel Accession Number(s): [id number] cc: Amber Ortiz MD; Name,Leland MIMS CLINICAL HISTORY: PAIN Exam: AP pelvis with AP and frog-leg lateral views of both hips. Comparison: Right hip radiographs December 14, 2023. Findings: Bony alignment of the hip joints is anatomic. No acute fractures are identified. 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 No erosions. Sacroiliac joints and pubic symphysis are unremarkable. Impression: No fracture. This document has been electronically signed by: Drew Germain MD on 06/19/2024 08:31:38 Dictated By: Drew Germain MD Signed By: <Electronically signed by Drew Germain MD in OV> 06/19/24831 DD/ 0 TD/TT: 06/19/24830 Cooler Supervisor: Amber Ortiz MD IMG XR PROCEDURES Edited Result - Final documented in this encounter Visit Diagnoses Not on filedocumented in this encounter Additional Health Concerns Assessment Noted Time PHQ-9 Depression Total Score: 0 09/14/19 24 3:10 PM EDT documented as of this encounter Care Teams Civil Engineering Intern Relationship Specialty Start Date End Date Name, MD Leland [address] [place] [address] PCP - General Family Medicine 08/26/15 documented as of this encounter
--- OUTSIDE RECORDS SUMMARY | 2024-07-12 18:03 | XMS_ITS | Encounter Summary ---
Author Organization [employer] Address [address] [place] [address] Care Team Providers Care Manager Medical Writing Name Role Phone Name, Leland MIMS Primary Care Provider [phone] Encounter Details Date Type Department Care Team (Latest Contact Info) Description 06/22/2024 Travel Social History Tobacco Use Types Packs/Day [...] Info) Description 08/09/2024 11:30 AM EST Telemedicine [facility] [address] [place] [phone] NameLeland MD [address] [place] [phone] 09/17/2024 10:15 AM EDT Office Visit [facility] [address] [place] [address] Name, MD Leland [address] [place] [address] documented as of this encounter Visit Diagnoses Not on filedocumented in this encounter Additional Health Concerns Assessment Noted Time PHQ-9 Depression Total Score: 0 09/14/19 24 3:10 PM EDT documented as of this encounter Care Teams Manager Medical Writing Relationship Specialty Start Date End Date NameLeland MD [address] [place] [phone] PCP - General Family Medicine 08/26/15 documented as of this encounter
--- OUTSIDE RECORDS SUMMARY | 2024-07-12 18:03 | XMS_ITS | Encounter Summary ---
Author Organization [employer] Address [address] [place] [address] Care Team Providers Care Academic Registrar Name Role Phone Name, Leland MIMS Primary Care Provider [phone] Reason for Visit * Reason Onset Date Comments Results 06/25/2024 Encounter Details Date Type Department Care Team ([facility] st Contact Info) Description 06/25/2024 Telephone [facility] [address] [place] [address] Keila Rojas RN Results Social History Tobacco Use Types Packs/Day Years [...] encounter Miscellaneous Notes * Telephone Encounter - Keila Rojas RN - 06/25/2024 7:43 PM EST TC to pt using [employer] city superintendent ID#[id number] to relay message from provider as per below. Pt describes a shooting pain in his legs that feel worse . He is requesting refills on the 2 Rx prescribed at 06/15/24 visit: RobaxinRobaxin) 750 MG tablet [[id number]] Dose: 750 mg Route: OralFrequency: 4 times daily Dispense Quantity: 40 tablet Refills: 0 Sig: Take 1 tablet (750 mg) by mouth 4 times daily for 10 days. Start Date: 06/15/24 End Date: 06/25/24 after Decadron 4 mg BID with meals x 7 days which helped Decadron) 4 MG tablet [[id number]] Order Details Dose: 4 mgRoute: Oral Frequency: 2 times daily with meals Dispense Quantity: 14 tablet Refills: 0 Sig: Take 1 tablet (4 mg) by mouth with breakfast and with evening meal for 7 days. Start Date: 06/15/24 End Date: 06/22/24 after 14 doses He states he does not want narcotics. Confirmed next available OV with PCP Name 07/06/24. Pt. Advised request for Rx will be forwarded to PCP for review and advise. Message from Stacey Maldonado MD sent at 06/25/2024 3:10 PM EST ----- Please let patient know I reviewed his XRAY no acute changes, he does have some changes compatible with old arthritis thank you documented in this encounter Plan of Treatment Upcoming Encounters Date Type Department Care Team (Late st Contact Info) Description 08/09/2024 11:30 AM EST Telemedicine [facility] [address] [place] [phone] Name, MD Leland [address] [place] [address] 09/17/2024 10:15 AM EDT Office Visit [address] [address] Name, MD Leland [address] [place] [address] documented as of this encounter Visit Diagnoses Not on filedocumented in this encounter Additional Health Concerns Assessment Noted Time PHQ-9 Depression Total Score: 0 09/14/19 24 3:10 PM EDT documented as of this encounter Care Teams Academic Registrar Relationship Specialty Start Date End Date Leland Brandon MD [address] [place] [address] PCP - General Family Medicine 08/26/15 documented as of this encounter
--- OUTSIDE RECORDS SUMMARY | 2024-07-12 18:03 | XMS_ITS | Encounter Summary ---
Author Organization [employer] Address [address] [place] [address] Care Team Providers Care Diffusion Furnace Operator Name Role Phone Name, Leland MIMS Primary Care Provider [phone] Reason for Visit * Reason Comments Med Refill Encounter Details Date Type Department Care Team ([facility] st Contact Info) Description 06/20/2024 Refill [facility] [address] [place], [place] [phone] Name, MD Leland [address] [place] [address] Social History Tobacco Use Types Packs/Day Years [...] Info) Description 08/09/2024 11:30 AM EST Telemedicine [facility] [address] [place] [address] NameLeland MD [address] [place] [address] 09/17/2024 10:15 AM EDT Office Visit [facility] [address] [place] [address] NameLeland MD [address] [place] [address] documented as of this encounter Visit Diagnoses Not on filedocumented in this encounter Additional Health Concerns Assessment Noted Time PHQ-9 Depression Total Score: 0 09/14/19 24 3:10 PM EDT documented as of this encounter Care Teams Diffusion Furnace Operator Relationship Specialty Start Date End Date Leland Brandon MD [address] [place] [phone] PCP - General Family Medicine 08/26/15 documented as of this encounter
--- OUTSIDE RECORDS SUMMARY | 2024-07-12 18:03 | XMS_ITS ---
Author Organization [facility] Address [address] [place] [address] Care Team Providers Care Operational Risk Manager Name Role Phone Name Leland MIMS Primary Care Provider Unavailabl e Black, Yaquelin Unavailable [phone] PericNalini addison Unavailable [phone] Allergies No Known Allergies REASON FOR VISIT Painful nail(s) aggrevated by shoes causing difficulty standing/walking, Foot pain Medications Medication SIG (Take, Route, Frequency, Duration) Notes Start Date End Date Status Naproxen 500 MG 1 tablet Orally WITH FOOD Twice a day for 14 days 01/28/2023 Not-Taki ng Ciclopirox 0.77 % 1 application Material Checker ally Twice a day for 30 days 07/15/2022 Not-Taki ng Pradaxa 150 MG 1 capsule Orally Twi ce a day Not-Taking Medrol juan j 4mg as directed orally a s directed for 6 days 05/20/2022 Not-Taking Acetaminophen 500 MG 1 tablet as needed Orally every 6 hrs for 14 days 01/28/2023 Not-Taki ng Ammonium Lactate 12 % 1 application Exte rnally Twice a day for 30 days Not-Taki ng Custom Orthotics as directed 11/03/2021 Active Lisinopril 5 MG 1 tablet Orally Once a day for 30 day(s) Active Gabapentin 800 MG 1 tablet Orally Once a day for 30 day(s) Active Eliquis 5 MG as directed Orally Not-Taking Piroxicam 20 MG TAKE 1 CAPSULE BY [facility] EVERY DAY WITH FOOD FOR 30 DAYS for 30 Not-Taking Social History Tobacco Use: Social History Observation Description Date Details (start date - stop date) Former Smoker NA - NA Tobacco use other than smoking: Question Answer Notes Are you an other tobacco user? No Tobacco Control (Standard) Question Answer Notes Tobacco use: Former smoker Additional Findings: Tobacco non-user Ex-cigaret te smoker AUDIT-C (Standard) Question Answer Notes Did you have a drink containing alcohol in the p ast year? No Points 0 Interpretation Negative Vital Signs Height 6ft in 05/21/2024 Weight 289 lbs 05/21/2024 BMI 39.19 kg/m2 05/21/2024 Encounters Encounter Location Date Provider Diagnosis [facility] [address] [address] 05/21/2024 Nalini Dyer Tinea unguium B35.1 ; Metatarsalgia, left foot M77.42 ; Pain in right toe(s) M79.674 ; Pain in left toe(s) M79.675 ; Xerosis of skin L85.3 ; PlantarFlexion of metatarsal of left foot M21.6X2 ; Other hammer toe(s) (acquired), left foot M20.42 ; Hammer toe of right foot M20.41 and Bursitis of intermetatarsal bursa of left foot M77.52 Assessments Encounter Date Diagnosis (ICD Code) Assessment Notes Treatment Notes Treatment Clinical Notes Section Notes 05/21/2024 Tinea unguium (ICD-10 - B35.1) 05/21/2024 Metatarsalgia, left foot (ICD-10 - M77.42) 05/21/2024 Pain in right toe(s) (ICD-10 - M79.674) 05/21/2024 Pain in left toe(s) (ICD-10 - M79.675) 05/21/2024 Xerosis of skin (ICD-10 - L85.3) 05/21/2024 PlantarFlexion of metatarsal of left foot (ICD-10 - M21.6X2) 05/21/2024 Other hammer toe(s) (acquired), left foot (ICD-10 - M20.42) 05/21/2024 Hammer toe of right foot (ICD-10 - M20.41) 05/21/2024 Bursitis of intermetatarsal bursa of left foot (ICD-10 - M77.52) 05/21/2024 Other Patient Educated with: RICE THERAPY.pdf (RICE THERAPY.pdf) Patient Educated with: INJECTIONTHER APY.pdf (INJECTIONTHE RAPY.pdf) Plan Of Treatment Treatment Notes Assessment Notes Other Patient Educated wit h: RICE THERAPY.pdf (RICE THERAPY.pdf) Patient Educated with: INJECTIONTHERAPY.pdf (INJECTIONTHERAPY.pdf) Next Appt Details Follow Up: 2 Months, Reason: Provider Name:Nalini addison, 08/02/2024 02:45:00 PM, [address] [facility], [place], [address], Procedure Notes * Category Sub-Category Detail Notes Injection Sm. Joint, Bursa , J0702 In jection - Left 2nd interspace sm/med joint bursa/capsule with 1cc of 1 percent Xylo.pl with 3mg Celestone Soluspan utilizing aseptic technique. The patient tolerated the procedure well. A dry sterile dressing was applied. Post injection instructions were dispensed, verbally discussed, and confirmed understood by the patient. I explained that a steroid and local anesthetic injection usually decreases pain and inflammation. I explained the possible complications including but not limited to signs/symptoms of steroid flare, change/deviation in toe position, infection, bruising, atrophy, discoloration of skin, and that additional injections may be necessary. Patient relates post-procedural pain assessment improved at ( 0-1) out of 10 Progress Notes * Rajeev MCLAUGHLINOB: 3 (59 yo M)Acc No.[id number]:05/21/2024 Progress Note Patient:?Steven MCLAUGHLIN Provider:?Nalini Dyer DPM :1965???Age:59 Y???Sex:Male Jose e:05/21/2024 Address:[address] [place], [place] [address] Pcp:Leland Brandon MD Subjective: * Chief Complaints: * ???Painful nail(s) aggrevate d by shoes causing difficulty standing/walkingFoot pain * HPI: ???Painful Nails:?Pt States Last PCP Visit:?Date:?03/28/2024 ???Skin problems:?Location:?B/L .?Duration:?several months.?Foot Pain:?Location:?Ball of foot, LEFT.?Duration:?1 year or more.?Onset:?gradual, denies trauma.?Course:?worse, recurrent.?Aggravated:?any pressure, standing, walking.?Treatments:?innersoles on and off, new custom orthotics, change in shoes, previous cortisone injections x 2, MRI, pt had consult with Dr Christopher Norman- no surgery per pt, requests to continue followup care in our office.?Severity/Quality:?Pre-injection procedure pain assessment - ( 8 ) out of 10.?Misc:?Patient states previous conservative therapy has not provided acceptable relief. Despite previous treatments/efforts, patient continues to relate substantial pain and significant functional disability during activity.? * ROS:?General/Constitutional:?Nausea?denies, .?Vomiting?denies.?Hunger Thirst?denies.?Loss appetite?denies.?Chills?denies.?Fatigue?denies.?Fever?denies.?Night Sweats?denies.?Unexplained weight loss?denies.?Unexplained weight gain?denies.?HEENTM:?Dentures?denies.?Dizziness?denies.?Glasses/contacts?admits.?Retinopathy?de nies.?Blurred/double vision?denies.?TMJ?denies.?Discharge/drainage?denies.?Implants?denies.?Sore throat?denies.?Dental implants?denies.?Hard of hearing ?denies.?Difficulty chewing/swallowing/speaking?denies.?Nose bleeds?denies.?Sore mouth?denies.?Respiratory:?On Oxygen?denies.?Pneumonia/pleurisy?denies.?Bronchitis?denies.?Emphysema?denies.?C oughing?denies.?Cough blood?denies.?Shortness of breath?denies.?Wheezing?denies.?Cardiovascular:?Pacemaker?denies.?MVP?denies.?WPW?denies.?CHF?denies.?Heart attack?denies.?Septal defect?denies.?Rapid beat?denies.?Chest pain ?denies.?Atrial Fib.?denies.?Murmur/Palpitations?denies.?Gastrointestinal:?Hemorrhoids?denies.?Stomach/Abdominal pain?denies.?Dark blood stool?denies.?Irritable bowel ?denies.?Constipation?denies.?Diarrhea?denies.?Hematology:?Swelling?denies.?Clots?denies.?Varicose Veins?admits.?Bruising?denies.?Bleeding problem?denies.?Genitourinary:?Blood urine?denies.?Frequent/Painfu/urination/bladder control?denies.?Kidney stones?denies.?Infection (UTI)?denies.?Nephropathy?denies.?sex trans dis (STD)?denies.?Prostate?denies.?Musculoskeletal:?Hammertoes?denies.?Bunions?denies.?Back Pain?admits.?Muscle Cramps/ Resting?denies.?Muscle cramps / walking?denies.?Generalized aches and pains?admits.?Weakness?denies.?Integ.:?Vogel?denies.?Scars?denies.?Corns/calluses?admits.?Ingrown nails?denies.?Painful nails?admits.?Open Sores?denies.?Rashes?denies.?Neurologic:?Difficulty sleeping?admits.?Brain disorder?denies.?Numbness?denies.?Balance trouble?denies.?Confusion?denies.?Fainting/blackouts?denies.?Tingling?denies.?Tr emors?denies.? * Medical History:? * Surgical History:?ear tubes * Hospitalization/Major Diagno stic Procedure:?[facility]- blood clot leg issue, cyst * Family History:?Mother: dece ased.?Father: , arthritis, stroke, high blood pressure.? * Social History:?Tobacco Use:?Tobacco use other than smoking?Are you an other tobacco user??No ?Tobacco Control (Standard)?Tobacco use:?Former smoker ?Additional Findings: Tobacco non-user?Ex-cigarette smoker ???Drugs/Alcohol:?Drugs?Have you used drugs other than those for medical reasons in the past 12 months??No ???Miscellaneous:?Caffeine: yes, 1-2 cups per day. ?Children: no. ?Exercise: no. ?Marital status: single. ?Occupation: Disabled. ???Drug/Alcohol:?AUDIT-C (Standard)?Did you have a drink containing alcohol in the past year??No ?Points?0 ?Interpretation?Negative * Medications:?TakingGabapenti n 800 MG Tablet 1 tablet Orally Once a day Lisinopril 5 MG Tablet 1 tablet Orally Once a day Custom Orthotics as directed Taking Gabapentin 800 MG Tablet 1 tablet Orally Once a day Taking Lisinopril 5 MG Tablet 1 tablet Orally Once a day Taking Custom Orthotics as directed Not-Taking/PRNAmmonium Lactate 12 % Cream 1 application Externally Twice a day Pradaxa 150 MG Capsule 1 capsule Orally Twice a day Ciclopirox 0.77 % Gel 1 application Externally Twice a day Naproxen 500 MG Tablet 1 tablet Orally WITH FOOD Twice a day Acetaminophen 500 MG Tablet 1 tablet as needed Orally every 6 hrs Medrol juan j 4mg Tablet Therapy Pack as directed orally as directed Piroxicam 20 MG Capsule TAKE 1 CAPSULE BY MOUTH EVERY DAY WITH FOOD FOR 30 DAYS Eliquis 5 MG Tablet as directed Orally Medication List reviewed and reconciled with the patientNot-Taking/PRN Ammonium Lactate 12 % Cream 1 application Externally Twice a day Not-Taking/PRN Pradaxa 150 MG Capsule 1 capsule Orally Twice a day Not-Taking/PRN Ciclopirox 0.77 % Gel 1 application Externally Twice a day Not-Taking/PRN Naproxen 500 MG Tablet 1 tablet Orally WITH FOOD Twice a day Not-Taking/PRN Acetaminophen 500 MG Tablet 1 tablet as needed Orally every 6 hrs Not-Taking/PRN Medrol juan j 4mg Tablet Therapy Pack as directed orally as directed Not-Taking/PRN Piroxicam 20 MG Capsule TAKE 1 CAPSULE BY MOUTH EVERY DAY WITH FOOD FOR 30 DAYS Not-Taking/PRN Eliquis 5 MG Tablet as directed Orally Medication List reviewed and reconciled with the patient * Allergies:?N.K.D.A.yes[Aller gies Verified] Objective: * Vitals:?Ht: 6ft, Wt:289, BMI :39.19, Shoe size: 13, Ht-cm: 182.88 cm, Wt-k.09 kg. * Examination: ???Nails: ?NAILS are:?Elongated, overgrown, dystrophic, lytic, greater than 3mm thick, discolored and friable with crumbly malodorous subungual debris, with pain on palpation , 1-5 B/L.?Dermatologic: ?SKIN FINDINGS:?Skin exam reveals Keratotic lesion(s) located at , TA , T2 , T3 , T5 , T6 , SUB MTH (s) , 1 , Heel(s), B/L.?General Examination: ?GENERAL APPEARANCE:?Reveals a pleasant, alert, well-nourished, well- developed, well hydrated individual, who demonstrates proper attention to hygiene/body habitus, and is in no acute distress, Pt serves as own?historian for office visit today.?ORIENTED:?person, place, and time.?Neurological: ?SENSORY:?Pt relates , hyperesthesia , shooting/radiating sensation , Right.?Vascular: ?DP PULSES(B):?3/4, B/L.?PT PULSES(B):?3/4, B/L.?CAPILLARY FILL TIME:?immediate, all digits, B/L.?TROPHIC CONDITION-TEXTURE/ELASTICITY/TURGOR/HAIR GROWTH(B):?normal, B/L.?TEMPERTURE GRADIENT(C):?warm to cool, proximal to distal, B/L.?PIGMENTATION:?normal, B/L.?EDEMA(C):?absent, B/L.?Orthopedic: ?MUSCLE STRENGTH:?5/5 all groups in a symmetrical fashion, B/L.?DIGITAL DEFORMITIES:? Digital contracture, PIPJ, 2-5 B/L, incompl- reducible with WB, or to push-up test, no over, nor underlapping.?MPJ PATHOLOGY:?Pain, swelling, and inflammation to plantar MPJ(s), 2nd, 3rd, LEFT.?Neuroma Pain: ?PALPATION:? Pain with direct palpation of the intermetatarsal space, Pain with lateral compression of metatarsals,,2nd interspace,LEFT.? Assessment: * Assessment: 1.?Tinea unguium - B35.1???2 .?Pain in right toe(s) - M79.674???3.?Metatarsalgia, left foot - M77.42 (Primary)???Specify :Chronic problem, Stable (1=3,2=4)???4.?Pain in left toe(s) - M79.675???5.?Xerosis of skin - L85.3???Specify :Acute problem, Uncomplicated (3),Rx Management (4)???6.?PlantarFlexion of metatarsal of left foot - M21.6X2???7.?Other hammer toe(s) (acquired), left foot - M20.42???8.?Hammer toe of right foot - M20.41???9.?Bursitis of intermetatarsal bursa of left foot - M77.52??? Plan: * Treatment: * Procedures:?Injection:?Sm. Joint, Bursa?97814, J0702 Injection - Left 2nd interspace sm/med joint bursa/capsule with 1cc of 1 percent Xylo.pl with 3mg Celestone Soluspan utilizing aseptic technique. The patient tolerated the procedure well. A dry sterile dressing was applied. Post injection instructions were dispensed, verbally discussed, and confirmed understood by the patient. I explained that a steroid and local anesthetic injection usually decreases pain and inflammation. I explained the possible complications including but not limited to signs/symptoms of steroid flare, change/deviation in toe position, infection, bruising, atrophy, discoloration of skin, and that additional injections may be necessary. Patient relates post-procedural pain assessment improved at ( 0-1) out of 10.? * Procedure Codes:?62861 DEBRI DE NAIL, 6 OR MORE, Modifiers: XS 85571 DRAIN/INJECT, JOINT/BURSA, Modifiers: XS J0702 INJ BETAMETHSN ACTAT&SOD PHOSPH-3MG * Preventive Medicine:? ??Counseling:?Discussion:?-13: Office or other outpatient visit for the evaluation and management of an established patient, which required a medically appropriate history and/or examination and LOW level of DECISION MAKING for: 1 STABLE ACUTE UNCOMPLICATED PROBLEM, 2 OR MORE MINOR PROBLEMS, OR 1 STABLE CHRONIC PROBLEM, THAT POSE(S) A LOW RISK FOR MORBIDITY/MORTALITY. The visit on the day of the encounter encompassed interpreting the data and educating the patient as to the nature of their condition, treatment options available according to their individual PMH, meds, allergies, and overall health/living conditions, as well as any potential risks or complications that may occur from a failure to adhere to, and participate in, the recommended course of therapy. The discussion included a complete verbal, and/or written explanation of the examination results, any x-rays taken, the proposed diagnosis, and outline of the treatment plan. A schedule for future care needs was also explained. The patient verbalized an understanding of the instructions at this time and agreed to be an active participant in their treatment. If the patient should think of any questions or concerns after the visit, I have encouraged the patient to call the office.?Metatarsalgea:?I explained to the patient the possible etiologies of their Metatarsalgea Foot pain, including foot type/shoegear/activity level/exercise routine and the risks/benefits of all the different treatment options for pain including: No treatment at all, Rest, Ice, NSAIDs(only if well tolerated after meals), New/supportive Shoegear, Strappings and Tapings, Foot/Ankle AFO Bracing, Stretching exercises, Deep Tissue Massage, Arch support/shoe inserts, Custom orthoses, Topical analgesics including Aspercream/Voltaren gel, Physical Therapy, Cortisone injection therapy, EPAT/ESWT. Advantages and disadvantages of each option were discussed and the patients questions re: shoegear, custom vs prefabricated inserts, activity level, PO vs Topical medications (and their respective potential complications/drug interactions/side effects), and consistency in home treatment regimens for optimal success were answered to their verbally confirmed satisfaction.?P.R.I.C.E.:?The patient was counseled on the use of P.R.I.C.E. and NSAIDS (if well tolerated) to aid in the recovery from their painful condition.?Steriod Injection:?I explained that a steroid and local anesthetic injections are administered to relieve pain and inflammation and thereby meant to improve function. I explained the possible complications including but not limited to signs/symptoms of steroid flare, infection, bruising, atrophy, discoloration of skin, change/deviation in toe position, and that additional injections may be necessary, cortisone post-injection informative educational handout was dispensed to and reviewed with the patient.? * Follow Up:?2 Months * Images: * Sign off status: Completed true * Provider:?Nalini Dyer DPM Date:?02/2024 Generated for Luisa john/Faxing/eTransmitting on:?07/12/2024 06:03 PM EST History and Physical Notes * HPI (History of Present Illness) Category Sub-Category Detail Notes Category Not es Painful Nails Pt States Last PCP Visit: Date:: 03/28/2024 Skin problems Location: B/L Duration: several months Foot Pain Location: Ball of foot, LEFT Duration: 1 year or more Onset: gradual, denies trau ma Course: worse, recurrent Aggravated: any pressure, standi ng, walking Treatments: innersoles on and of f, new custom orthotics, change in shoes, previous cortisone injections x 2, MRI, pt had consult with Dr Christopher Norman- no surgery per pt, requests to continue followup care in our office Severity/Quality: Pre-injection proced ure pain assessment - ( 8 ) out of 10 Misc: Patient states previ ous conservative therapy has not provided acceptable relief. Despite previous treatments/efforts, patient continues to relate substantial pain and significant functional disability during activity Examination Category Sub-Category Detail Notes Category Not es Neuroma Pain PALPATION: Pain with direct palpation of the intermetatarsal space, Pain with lateral compression of metatarsals,,2nd interspace,LEFT Neurological SENSORY: Pt relates , hyp eresthesia , shooting/radiating sensation , Right Dermatologic SKIN FINDINGS: Skin exam reveal s Keratotic lesion(s) located at , TA , T2 , T3 , T5 , T6 , SUB MTH (s) , 1 , Heel(s), B/L Orthopedic DIGITAL DEFORMITIES: Digital con tracture, PIPJ, 2-5 B/L, incompl-reducible with WB, or to push-up test, no over, nor underlapping MPJ PATHOLOGY: Pain, swelling, and inflammation to plantar MPJ(s), 2nd, 3rd, LEFT MUSCLE STRENGTH: 5/5 all groups in a symmetrical fashion, B/L General Examination GENERAL APPEARANCE: Reveals a pleasant, alert, well- nourished, well-developed, well hydrated individual, who demonstrates proper attention to hygiene/body habitus, and is in no acute distress, Pt serves as own historian for office visit today ORIENTED: person, place, and t janette Vascular DP PULSES (B): 3/4, B/L PT PULSES (B): 3/4, B/L CAPILLARY FILL TIME: immediate, all digi ts, B/L TEMPERTURE GRADIENT (C): warm to cool, p roximal to distal, B/L TROPHIC CONDITION-TEXTURE/ELASTICITY/TURGOR/HAIR GROWTH (B): normal, B/L EDEMA (C): absent, B/L PIGMENTATION: normal, B/L Nails NAILS are: Elongated, overg rown, dystrophic, lytic, greater than 3mm thick, discolored and friable with crumbly malodorous subungual debris, with pain on palpation , 1-5 B/L
--- OUTSIDE RECORDS SUMMARY | 2024-07-12 18:03 | XMS_ITS | Encounter Summary ---
Author Organization [employer] Address [address] [facility] 7t [place] [address] Care Team Providers Care Lead Caster Name Role Phone Name, Leland MIMS Primary Care Provider [phone] Reason for Visit * Reason Onset Date Comments Medication Question 03/10/2023 Encounter Details Date Type Department Care Team ([facility] st Contact Info) Description 03/10/2023 Telephone [facility] [address] [place] [address] Name, MD Leland [address] [place] [address] Medication Question Social History Tobacco Use Types Packs/Day Years [...] encounter Miscellaneous Notes * Telephone Encounter - Kelsy Ellis RN - 03/10/2023 2:36 PM EDT T?C to pt. For below message through [employer] HR id - [id number] for below message, pt. Verbally agreed and understood. * Telephone Encounter - Michael Yu - 03/10/2023 10:03 AM EDT Tc from pt stating insurance will not cover for script guaiFENesin (Robitussin) 100 MG/5ML liquid & pseudoephedrine (Sudafed) 30 MG tablet, pt was seen on 03/09/23 with PCP for COVID . Pt would like to know if PCP can send a alternative script. Revenue Analyst also confirmed with pharmacy. Please contact at [phone] Serbian documented in this encounter Plan of Treatment Upcoming Encounters Date Type Department Care Team (Late st Contact Info) Description 08/09/2024 11:30 AM EST Telemedicine [facility] [address] [place] [address] Name, [place] [address] 09/17/2024 10:15 AM EDT Office Visit [facility] [address] [place] [address] Name, [place] [address] documented as of this encounter Visit Diagnoses Not on filedocumented in this encounter Additional Health Concerns Assessment Noted Time PHQ-9 Depression Total Score: 0 09/07/19 23 1:16 PM EDT documented as of this encounter Care Teams Lead Caster Relationship Specialty Start Date End Date NameLeland MD [address] [place] [address] PCP - General Family Medicine 08/26/15 documented as of this encounter
--- OUTSIDE RECORDS SUMMARY | 2024-07-12 18:03 | XMS_ITS | Patient Health Record ---
Author Organization [facility] Address [address] [facility] [place] [address] Care Team Providers Care Warehouse Team Member Name Role Phone Name Leland MIMS Primary Care Provider Unavailabl e Luis Yaquelin Unavailable [phone] MaricelNalini addison Unavailable [phone] Allergies No Known Allergies Reason For Referral No Information Medications Medication SIG (Take, Route, Frequency, Duration) Notes Start Date End Date Status Naproxen 500 MG 1 tablet Orally WITH FOOD Twice a day for 14 days 01/28/2023 Not-Taki ng Ciclopirox 0.77 % 1 application Rustic Fence Builder ally Twice a day for 30 days 07/15/2022 Not-Taki ng Pradaxa 150 MG 1 capsule Orally Twi ce a day Not-Taking Ammonium Lactate 12 % 1 application Exte rnally Twice a day for 30 days Not-Taki ng Piroxicam 20 MG TAKE 1 CAPSULE BY [facility] EVERY DAY WITH FOOD FOR 30 DAYS for 30 Not-Taking Medrol juan j 4mg as directed orally a s directed for 6 days 05/20/2022 Not-Taking Acetaminophen 500 MG 1 tablet as needed Orally every 6 hrs for 14 days 01/28/2023 Not-Taki ng [employer] as directed 11/03/2021 Active Lisinopril 5 MG 1 tablet Orally Once a day for 30 day(s) Active Gabapentin 800 MG 1 tablet Orally Once a day for 30 day(s) Active Eliquis 5 MG as directed Orally Not-Taking Social History Tobacco Use: Social History [...] ast year? 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 3 ; Metatarsalgia, left foot M77.42 ; Tinea unguium B35.1 ; Pain in right toe(s) M79.674 ; Pain in left toe(s) M79.675 ; Bursitis of intermetatarsal bursa of left foot M77.52 ; PlantarFlexion of metatarsal of left foot M21.6X2 ; Other hammer toe(s) (acquired), left foot M20.42 and Hammer toe of right foot M20.[address] [address] 08/15/2023 Nalini Dyer Metatarsalgia, left foot M77.42 ; Neuropathy G62.9 ; Other hammer toe(s) (acquired), left foot M20.42 ; Hammer toe of right foot M20.41 and Metatarsalgia, right foot M77.41 [facility] [address] [place] [address] 09/13/2023 Nalini Dyer Xerosis of skin L85. 3 ; Metatarsalgia, left foot M77.42 ; Bursitis of intermetatarsal bursa of left foot M77.52 ; PlantarFlexion of metatarsal of left foot M21.6X2 ; Other hammer toe(s) (acquired), left foot M20.42 and Hammer toe of right foot M20.[address] [address] 09/29/2023 Nalini Perica Tinea unguium B35.1 ; Metatarsalgia, left foot M77.42 ; Pain in right toe(s) M79.674 ; Pain in left toe(s) M79.675 ; Xerosis of skin L85.3 ; PlantarFlexion of metatarsal of left foot M21.6X2 ; Other hammer toe(s) (acquired), left foot M20.42 and Hammer toe of right foot M20.[address] [address] 12/08/2023 Nalini Dyer Tinea unguium B35.1 ; Pain in right toe(s) M79.674 and Pain in left toe(s) M79.[address] [address] 05/21/2024 Nalini Connellya Tinea unguium B35.1 ; Metatarsalgia, left foot M77.42 ; Pain in right toe(s) M79.674 ; Pain in left toe(s) M79.675 ; Xerosis of skin L85.3 ; PlantarFlexion of metatarsal of left foot M21.6X2 ; Other hammer toe(s) (acquired), left foot M20.42 ; Hammer toe of right foot M20.41 and Bursitis of intermetatarsal bursa of left foot M77.[address] [address] 07/14/2023 Nalini Dyer [address] [place] [address] 09/05/2023 [facility] [address] [place] [address] 09/05/2023 [facility] Smith [facility] [address] [place] [address] 09/08/2023 Yaquelin Black [facility] [place] [address] [place] [address] 09/14/2023 [facility] [place] [address] [place] [address] 02/06/2024 Yaquelinzeyad Smith [facility] [address] [place] [address] 03/05/2024 Yaquelin Smith [facility] Encounter Date Diagnosis (ICD Code) Assessment Notes Treatment Notes Treatment Clinical Notes Section Notes 07/14/2023 Metatarsalgia, left foot (ICD-10 - M77.42) 07/14/2023 Xerosis of skin (ICD-10 - L85.3) 08/15/2023 Metatarsalgia, left foot (ICD-10 - M77.42) 08/15/2023 Neuropathy (ICD-10 - G62.9) 09/13/2023 Xerosis of skin (ICD-10 - L85.3) 09/29/2023 Metatarsalgia, left foot (ICD-10 - M77.42) 09/29/2023 Tinea unguium (ICD-10 - B35.1) 12/08/2023 Tinea unguium (ICD-10 - B35.1) 12/08/2023 Pain in right toe(s) (ICD-10 - M79.674) 05/21/2024 Tinea unguium (ICD-10 - B35.1) 05/21/2024 Pain in right toe(s) (ICD-10 - M79.674) 09/13/2023 Bursitis of intermetatarsal bursa of left foot (ICD-10 - M77.52) Patient Educated with: RICE THERAPY.pdf (RICE THERAPY.pdf) Patient Educated with: INJECTIONTHER APY.pdf (INJECTIONTHE RAPY.pdf) 05/21/2024 Metatarsalgia, left foot (ICD-10 - M77.42) 12/08/2023 Pain in left toe(s) (ICD-10 - M79.675) 09/29/2023 Pain in right toe(s) (ICD-10 - M79.674) 09/13/2023 Metatarsalgia, left foot (ICD-10 - M77.42) 08/15/2023 Other hammer toe(s) (acquired), left foot (ICD-10 - M20.42) 07/14/2023 Tinea unguium (ICD-10 - B35.1) 08/15/2023 Hammer toe of right foot (ICD-10 - M20.41) 07/14/2023 Pain in right toe(s) (ICD-10 - M79.674) 09/29/2023 Pain in left toe(s) (ICD-10 - M79.675) 09/13/2023 PlantarFlexion of metatarsal of left foot (ICD-10 - M21.6X2) 05/21/2024 Pain in left toe(s) (ICD-10 - M79.675) 05/21/2024 Xerosis of skin (ICD-10 - L85.3) 09/29/2023 Xerosis of skin (ICD-10 - L85.3) 09/13/2023 Other hammer toe(s) (acquired), left foot (ICD-10 - M20.42) 08/15/2023 Metatarsalgia, right foot (ICD-10 - M77.41) 07/14/2023 Pain in left toe(s) (ICD-10 - M79.675) 07/14/2023 Bursitis of intermetatarsal bursa of left foot (ICD-10 - M77.52) Patient Educated with: RICE THERAPY.pdf (RICE THERAPY.pdf) Patient Educated with: INJECTIONTHER APY.pdf (INJECTIONTHE RAPY.pdf) 09/13/2023 Hammer toe of right foot (ICD-10 - M20.41) 09/29/2023 PlantarFlexion of metatarsal of left foot (ICD-10 - M21.6X2) 05/21/2024 PlantarFlexion of metatarsal of left foot (ICD-10 - M21.6X2) 05/21/2024 Other hammer toe(s) (acquired), left foot (ICD-10 - M20.42) 09/29/2023 Other hammer toe(s) (acquired), left foot (ICD-10 - M20.42) 07/14/2023 PlantarFlexion of metatarsal of left foot (ICD-10 - M21.6X2) 07/14/2023 Other hammer toe(s) (acquired), left foot (ICD-10 - M20.42) 09/29/2023 Hammer toe of right foot (ICD-10 - M20.41) 05/21/2024 Hammer toe of right foot (ICD-10 - M20.41) 05/21/2024 Bursitis of intermetatarsal bursa of left foot (ICD-10 - M77.52) 07/14/2023 Hammer toe of right foot (ICD-10 - M20.41) 07/14/2023 Other 09/29/2023 Other Patient Educated with: RICE THERAPY.pdf (RICE THERAPY.pdf) Patient Educated with: INJECTIONTHER APY.pdf (INJECTIONTHE RAPY.pdf) 05/21/2024 Other Patient Educated with: RICE THERAPY.pdf (RICE THERAPY.pdf) Patient Educated with: INJECTIONTHER APY.pdf (INJECTIONTHE RAPY.pdf) Plan Of Treatment Pending Test Test Name Order Date *Uric Acid, Serum 05/20/2022 *CBC With Differential/Platelet 05/20/20 ESR 05/20/2022 X ray : Foot, left 3V 05/20/2022 X ray : Foot, left 3V 09/13/2023 X ray : Foot, left 3V 09/29/2023 X ray : Foot, right 3V 01/27/2023 47107-[id number] NAIL, 6 OR MORE 11/03/2021 21988-PMBDSKV NAIL, 6 OR MORE 01/19/2022, J0702- INJECT TENDON ORIGIN/INSER T 01/27/2023, Q9321-HSDJW/INJECT, JOINT/BURSA 0 07/02/2022 X ray : Ankle, right 3V 01/27/2023 Next Appt Details Provider Name:Nalini addison, 08/02/2024 02:45:00 PM, [address], [place], [address], Insurance Providers Payer Name Payer Address Payer Phone Subscriber Number Group Number Insured Name Patient Relationship to Insured Coverage Start Date Coverage End Date [facility] [employer] Claims [address] [place] [phone] [id number] Steven Subramanian Self - patient is the insured Medical (General) History Medical History History ICD Code Arthritis Depression Psoriasis/eczema Surgical History Surgery Date(Month/Year) ear tubes Hospitalization History Reason Date(Month/Year) [facility]- blood clot 07/2021 [facility] leg issue, cyst
--- OUTSIDE RECORDS SUMMARY | 2024-07-12 18:03 | XMS_ITS ---
Author Organization [facility] Address [address] [place] [address] Care Team Providers Care Field Cane Scale Clerk Name Role Phone Name Leland MIMS Primary Care Provider Unavailabl e Alex Smithmie Unavailable [phone] Nalini Dyer Unavailable [phone] Encounters Encounter Location Date Provider Diagnosis [address] [address] 03/05/2024 Nalini Dyer Plan Of Treatment Next Appt Details Provider Name:Nalini addison, 08/02/2024 02:45:00 PM, [address] [place] [address], [address], Progress Notes * Jaren MCLAUGHLINsDOB: 3 (59 yo M)Acc No.[id number]:03/05/2024 Progress Note Patient:?Steven MCLAUGHLIN Provider:?Nalini Dyer DPM :1965???Age:58 Y???Sex:Male Jose e:03/05/2024 Address:[address] [place], [place] [id number] Pcp:Leland Brandon MD Subjective: * Chief Complaints: * ??? * Medical History:? Objective: * Vitals:? Assessment: Plan: * Treatment: * Images: * The named appointment provid er may or may not be the originator of this progress note, and it is not deemed complete until electronically signed by the appointment provider. Sign off status: Pending * Provider:?Nalini Dyer DPM Date:? Generated for Luisa john/Alexandrea/Clayton on:?07/12/2024 06:02 PM EST
--- OUTSIDE RECORDS SUMMARY | 2024-07-12 18:03 | XMS_ITS | Encounter Summary ---
Author Organization [facility] Address [address] [facility] 7t [place] [address] Care Team Providers Care Die Maker Electronic Name Role Phone Name, Leland MIMS Primary Care Provider [phone] Reason for Visit * Reason Comments Med Refill Encounter Details Date Type Department Care Team ([facility] Contact Info) Description 02/21/2023 Refill [facility] [address] [place] [phone] Name, MD Leland [address] [place] [phone] Insomnia, unspecified type Social History Tobacco Use [...] Upcoming Encounters Date Type Department Care Team ([facility] Contact Info) Description 08/09/2024 11:30 AM EST Telemedicine [facility] [address] [place] [address] [phone] Name, MD Leland [address] [place] [phone] 09/17/2024 10:15 AM EDT Office Visit [facility] [address] [place] [address] Name, MD Leland [address] [place] [address] documented as of this encounter Visit Diagnoses Diagnosis Insomnia, unspecified type documented in this encounter Additional Health Concerns Assessment Noted Time PHQ-9 Depression Total Score: 0 09/07/19 23 1:16 PM EDT documented as of this encounter Care Teams Die Maker Electronic Relationship Specialty Start Date End Date Name, MD Leland [address] [place] [address] PCP - General Family Medicine 08/26/15 documented as of this encounter
--- OUTSIDE RECORDS SUMMARY | 2024-07-12 18:03 | XMS_ITS | Encounter Summary ---
Author Organization [employer] Address [address] [facility] [address] 7t [place] [address] Care Team Providers Care Sheet Metal Production Worker Name Role Phone Name, Leland MIMS Primary Care Provider [phone] Reason for Visit * Reason Comments Med Refill Encounter Details Date Type Department Care Team ([facility] st Contact Info) Description 09/23/2023 Refill [facility] [address] [place] [address] Ila Lora MD [address] [place] [address] Social History Tobacco Use Types Packs/Day Years [...] Info) Description 08/09/2024 11:30 AM EST Telemedicine [facility] [address] [place] [phone] NameLeland MD [address] [place] [address] 09/17/2024 10:15 AM EDT Office Visit [facility] [address] [place] [address] NameLeland MD [address] [place] [address] documented as of this encounter Visit Diagnoses Not on filedocumented in this encounter Additional Health Concerns Assessment Noted Time PHQ-9 Depression Total Score: 0 09/14/19 24 3:10 PM EDT documented as of this encounter Care Teams Sheet Metal Production Worker Relationship Specialty Start Date End Date NameLeland MD [address] [place] [address] PCP - General Family Medicine 08/26/15 documented as of this encounter
--- OUTSIDE RECORDS SUMMARY | 2024-07-12 18:03 | XMS_ITS | Encounter Summary ---
Author Organization [employer] Address [address] [facility] 7t [place] [address] Care Team Providers Care Heel Lift Gouger Name Role Phone Name, Leland MIMS Primary Care Provider [phone] Reason for Visit * Reason Onset Date Comments Med Refill 05/25/2024 Encounter Details Date Type Department Care Team ([facility] st Contact Info) Description 05/25/2024 Telephone [facility] [address] [place], [place] [phone] Name, MD Leland [address] [place] [address] Med Refill Social History Tobacco Use Types [...] Telephone Encounter - Serenity Vogt LPN - 05/25/2024 4:08 PM EST Medication was prescribed short term. * Telephone Encounter - Meg Salas - 05/25/2024 4:04 PM EST TC from pt requesting medication refill. Medications needing refill : dexAMETHasone (Decadron) 4 MG tablet To be sent to: [facility] documented in this encounter Plan of Treatment Upcoming Encounters Date Type Department Care Team (Late st Contact Info) Description 08/09/2024 11:30 AM EST Telemedicine [facility] [address] [place] [phone] Name, MD Leland [address] [place] [address] 09/17/2024 10:15 AM EDT Office Visit [facility] [address] [place] [address] Name, MD Leland [address] [place] [address] documented as of this encounter Visit Diagnoses Not on filedocumented in this encounter Additional Health Concerns Assessment Noted Time PHQ-9 Depression Total Score: 0 09/14/19 24 3:10 PM EDT documented as of this encounter Care Teams Heel Lift Gouger Relationship Specialty Start Date End Date Name, MD Leland [address] [place] [address] PCP - General Family Medicine 08/26/15 documented as of this encounter
--- OUTSIDE RECORDS SUMMARY | 2024-07-12 18:03 | XMS_ITS ---
Author Organization [facility] Address [address] [place] [address] Care Team Providers Care Brim Molder Name Role Phone Name Leland MIMS Primary Care Provider Unavailyves e Black, Yaquelin Unavailable [phone] REASON FOR VISIT sd cx 03/05/2024 Encounters Encounter Location Date Provider Diagnosis [address] [address] 03/05/2024 Yaquelin Black Plan Of Treatment Next Appt Details Provider Name:Nalini addison, 08/02/2024 02:45:00 PM, [address] [place] [address], [phone], Progress Notes * Rajeev MCLAUGHLINOB: 3 (58 yo M)Acc No.[id number]:03/05/2024 Patient:?Steven Mclaughlin :1965???Age:58 Y???Sex:Male Address:[address] [place], [address] * true * Date:? Generated for Printi alvaro/Alexandrea/eTransmitting on:?07/12/2024 06:01 PM EST
--- OUTSIDE RECORDS SUMMARY | 2024-07-12 18:04 | XMS_ITS | Encounter Summary ---
Author Organization [employer] Address [address] [facility] 7t [place] [address] Care Team Providers Care Car Cleaner Name Role Phone Name, Leland MIMS Primary Care Provider [phone] Reason for Visit * Reason Comments Med Refill Encounter Details Date Type Department Care Team ([facility] st Contact Info) Description 06/15/2024 Refill [facility] [address] [place], [place] [phone] Name, MD Leland [address] [place] [address] Insomnia, unspecified type Social History Tobacco Use [...] 08/09/2024 11:30 AM EST Telemedicine [facility] [address] [place] [phone] NameLeland MD [address] [place] [address] 09/17/2024 10:15 AM EDT Office Visit [facility] [address] [place] [phone] NameLeland MD [address] [place] [address] documented as of this encounter Visit Diagnoses Diagnosis Insomnia, unspecified type documented in this encounter Additional Health Concerns Assessment Noted Time PHQ-9 Depression Total Score: 0 09/14/19 24 3:10 PM EDT documented as of this encounter Care Teams Car Cleaner Relationship Specialty Start Date End Date Leland Brandon MD [address] [place] [address] PCP - General Family Medicine 08/26/15 documented as of this encounter
--- OUTSIDE RECORDS SUMMARY | 2024-07-12 18:04 | XMS_ITS | Data Portability ---
Author Organization [employer] [place] [facility] [employer] Address [address] [place] [address] Care Team Providers Care Specialized Language Instructor Name Role Phone [facility] Referring Provider [facility] Referring Provider Assessment No assessment recorded. Plan of Treatment Reminders Order Date Submit Date Provider Last Modified By Organization Details Last Modified Time Details Appointments None recorded. Lab None recorded. Referral None recorded. Procedures None recorded. Surgeries None recorded. Imaging None recorded. Medication Orders cephalexin 500 mg capsule 2023 024 [facility] #[id number], [address] [place], [address], 4 20:15:29 cephalexin 500 mg capsule 2023 024 [email or web address] Not available 20:15:27 Patient TargetsNo targets recorded. Patient InstructionsNo instructions recorded. Reason for Referral None Reported. Medical Equipment None Reported. Medications Name Sig Start Date Stop Date Status Note LastModified by Organization Details LastModified Time cyclobenzapr ine 10 mg tablet TAKE 1 TABLET BY MOUTH 3 TIMES A DAY, FOR 3 DAYS, NEEDED FOR SPASM active Not Available Not Available No t Available amoxicillin 500 mg capsule TAKE 1 CAPSULE BY MOUTH 3 TIMES A DAY FOR 7 DAYS active Not Available Not Available N ot Available atorvastatin 40 mg tablet TAKE 1 TABLET BY MOUTH EVERY DAY active Not Available Not Available No t Available bupropion HCl SR 150 mg tablet,12 hr sustained-re lease TAKE 1 TABLET BY MOUTH TWICE A DAY active Not Available Not Available No t Available doxycycline hyclate 100 mg capsule TAKE 1 CAPSULE BY MOUTH TWICE A DAY active Not Available Not Available No t Available prednisone 20 mg tablet TAKE 1 TABLET BY MOUTH DAILY IN THE MORNING FOR 5 DAYS active Not Available Not Available No t Available betamethason e, augmented 0.05 % topical cream APPLY A THIN LAYER TO THE AFFECTED AREAS EVERY DAY DO NOT EXCEED 50 GRAMS PER WK active Not Available Not Available No t Available aspirin 81 mg tablet,delay ed release TAKE 1 TABLET BY MOUTH EVERY DAY active Not Available Not Available No t Available acetaminophe n 500 mg tablet TAKE 1 TABLET BY MOUTH EVERY 8 HOURS NEEDED FOR PAIN active Not Available Not Available No t Available acetaminophe n ER 650 mg tablet,exten ded release PLEASE SEE ATTACHED FOR DETAILED DIRECTIONS active Not Available Not Available N ot Available hydrocortiso ne 2.5 % topical cream with perineal applicator APPLY A THIN LAYER TO AFFECTED AREA(S) 2 TO 4 TIMES DAILY active Not Available Not Available No t Available ofloxacin 0.3 % ear drops APPLY 5 DROP INTO RIGHT EAR TWICE A DAY active Not Available Not Available Not Available tamsulosin 0.4 mg capsule TAKE 1 CAPSULE BY MOUTH EVERY DAY IN THE EVENING active Not Available Not Available No t Available gabapentin 800 mg tablet TAKE 1 TABLET BY MOUTH THREE TIMES DAILY active Not Available Not Available Not Available nicotine (polacrilex) 4 mg gum CHEW 1 PIECE OF GUM NEEDED FOR SMOKING CESSATION active Not Available Not Available No t Available Triple Antibiotic 3.5 mg-400 unit-5,000 unit/gram topical ointment APPLY A THIN LAYER TO AFFECTED AREA(S) DAILY DIRECTED active Not Available Not Available No t Available hydrocortiso ne 1 % topical cream APPLY TO AFFECTED AREA TWICE A DAY active Not Available Not Available No t Available cephalexin 500 mg capsule TAKE 1 CAPSULE BY MOUTH EVERY 6 HOURS FOR 7 DAYS active Not Available Not Available No t Available lisinopril 10 mg tablet TAKE 1 TABLET BY MOUTH EVERY DAY active Not Available Not Available No t Available docusate sodium 100 mg capsule TAKE 1 CAPSULE BY MOUTH TWICE A DAY active Not Available Not Available No t Available betamethason e, augmented 0.05 % topical ointment APPLY TO AFFECTED AREA EVERY DAY active Not Available Not Available No t Available hydrocortiso ne 2.5 % topical cream APPLY TO AFFECTED AREA(S) ON BOTH LEGS 1 TO 2 TIMES PER DAY AFTER SHOWER OR BATH active Not Available Not Available No t Available enoxaparin 150 mg/mL subcutaneous syringe INJECT 135 MG (0.9 MLS) SUBCUTANEOU SLY EVERY 12 HOURS active Not Available Not Available No t Available ammonium lactate 12 % topical cream 1 APPLICATION EXTERNALLY TWICE A DAY 30 DAYS active Not Available Not Available No t Available bisacodyl 5 mg tablet,delay ed release TAKE 2 TABLETS BY MOUTH 1 DAY PRIOR TO PROCEDURE AT NOON active Not Available Not Available No t Available lisinopril 5 mg tablet TAKE 1 TABLET BY MOUTH EVERY DAY active Not Available Not Available No t Available mometasone 0.1 % topical ointment APPLY TOPICALLY EVERY DAY IN THE MORNING active Not Available Not Available No t Available mupirocin 2 % topical ointment APPLY SPARINGLY TO AFFECTED AREA 3 TIMES A DAY active Not Available Not Available Not Available zolpidem 10 mg tablet TAKE 1 TABLET BY MOUTH AT BEDTIME NEEDED FOR SLEEP active Not Available Not Available No t Available piroxicam 20 mg capsule TAKE 1 CAPSULE BY MOUTH EVERY DAY WITH FOOD FOR 30 DAYS active Not Available Not Available No t Available loratadine 10 mg tablet TOME WILLIAM TABLETA TODOS LOS D active Not Available Not Available No t Available naproxen 500 mg tablet TAKE 1 TABLET BY MOUTH TWICE A DAY WITH FOOD OR MEALS FOR 14 DAYS active Not Available Not Available No t Available mometasone 0.1 % topical cream APPLY A THIN LAYER TO BOTH HANDS TOPICALLY ONCE DAILY IN THE MORNING active Not Available Not Available No t Available ciclopirox 0.77 % topical gel APPLY TO AFFECTED AREA TWICE A DAY active Not Available Not Available No t Available ciclopirox 0.77 % topical cream 1 APPLICATION EXTERNALLY TWICE A DAY 30 DAYS active Not Available Not Available No t Available enoxaparin 120 mg/0.8 mL subcutaneous syringe INJECT 1 SYRINGE SUBCUTANEOU SLY TWICE A DAY DIRECTED active Not Available Not Available No t Available alfuzosin ER 10 mg tablet,exten ded release 24 hr TAKE 1 TABLET BY MOUTH ONCE A DAY AT THE SAMETIME EVERYDAY active Not Available Not Available No t Available fondaparinux 10 mg/0.8 mL subcutaneous solution syringe INJECT 0.8 ML SUBCUTANEOU S INJECTION DAILY active Not Available Not Available No t Available lactulose 10 gram/15 mL oral solution TAKE 15 ML BY MOUTH EVERY DAY active Not Available Not Available No t Available pregabalin 150 mg capsule TAKE 1 CAPSULE BY MOUTH TWICE A DAY active Not Available Not Available No t Available varenicline tartrate 0.5 mg tablet TAKE 1 TABLET BY MOUTH TWICE DAILY WITH FULL GLASS OF WATER active Not Available Not Available No t Available varenicline tartrate 0.5 mg (11)-1 mg (42) tablets in a dose pack USE DIRECTED ON BOX active Not Available Not Available No t Available fluocinolone acetonide oil 0.01 % ear drops INSTILL 2 DROP INTO AFFECTED EAR TWICE A WEEK NEEDED active Not Available Not Available No t Available hydrochlorot hiazide 12.5 mg tablet TAKE 1 TABLET BY MOUTH EVERY DAY IN THE MORNING active Not Available Not Available No t Available omega 4-oxh-esn-fi sh oil 1,000 mg (120 mg-180 mg) capsule TAKE 1 CAPSULE BY MOUTH EVERY DAY active Not Available Not Available No t Available Pradaxa 150 mg capsule TAKE 1 CAPSULE BY MOUTH TWICE A DAY active Not Available Not Available No t Available Eliquis 5 mg tablet TAKE 1 TABLET BY MOUTH TWICE A DAY active Not Available Not Available No t Available Vitals Date Recorded Heart rate Respiratory rate Body weight Body temperature Oxygen saturation Oxygen saturation in Arterial blood by Pulse oximetry Systolic blood pressure Diastolic blood pressure Provider Name and Address Organization Details Last Updated DateTime 4 86 /min 18 /min 767375. 72 g 98.6 [degF] 98 % 98 % 154 mm[Hg] 94 mm[Hg] Not Available [employer] [facility] [employer] 4 20:11:37 Date Recorded Respiratory rate Oxygen saturation Oxygen saturation in Arterial blood by Pulse oximetry Body temperature Heart rate Systolic blood pressure Diastolic blood pressure Provider Name and Address Organization Details Last Updated DateTime 2 20 /min 94 % 94 % 97.7 [degF] 74 /min 125 mm[Hg] 75 mm[Hg] Not Available [employer] [facility] [employer] 2 07:41:40 Social History None recorded. Functional Status None recorded. Mental Status None recorded. Family History Nothing Reported. Medical History No medical history recorded. Past Encounters Encounter ID Performer Location Encounter Start Date Encounter Closed Date Diagnosis/Indication Diagnosis SNOMED-CT Code Diagnosis ICD10 Code Diagnosis Note [id number] Lucia Khoury MD [facility] [address] [place] [id number] [id number] 12/05/2021 07:41:38 02/10/2022 10:34:04 History of deep vein thrombosis [id number] Z86.718 56 year old male with chronic lower extremity DVT's, being evaluated for calf pain. For background , patient initially on warfarin, then switched to DOAC, however developed a DVT on this agent 3 months ago, so was switched to lovenox injections which patient reports was helpful. He reports over the last 3 months his lower extremity calf pains have significan tly decreased. Nearly a week ago, patient received a call from his primary physician, sergio john a change from lovenox to fondaparin ux, patient was not given an explanatio n. Since switching to fondaparin ux, patient reports increased pain of bilateral lower extremitie s, consistent with prior episodes of DVT. Patient is with normal vital signs, without chest pain or respirator y symptoms currently. Patient denies having done any blood work over the last 3 months. Unclear rational for switch to fondaparin ux - given patient did not have blood work prior to the switch, a diagnosis of HIT could not have been made. Current presentati on concerning for ineffectiv e anticoagul ation and DVT recurrence , therefore recommende d switching back to lovenox (patient has some left at home) until can speak with primary regarding why this change was made. [id number] Arsalan Vera MD [facility] [address] [place] [address] [phone] 06/23/2023 20:11:26 06/23/2023 22:45:58 Cellulitis of left lower limb [id number] L03.116 Reports increased redness and swelling of LLE. On enoxaparin for history of DVT. No new swelling. Pulses normal per mechanical product design engineer. No fevers, chills, systemic symptoms. Plan for empiric treatment with cephalexin and PCP follow-up Health Concerns Section Related Observation LastModified by Organization Detai ls LastModified Time None Recorded Concern Status LastModified by Organization Details LastModified Time None Recorded Advance Directives Directive None Recorded Payers Encounter Date Sequence Insurance Name Policy Number Policy Simon Covered Member ID Simon Member ID Guarantor Name 12/04/2021 1 [facility] - DOS PRIOR TO 2022 - DUAL ELIGIBLE (MEDICARE REPLACEMENT/ADV ANTAGE - HMO) Steven Subramanian [id number] Steven Subramanian 06/23/2023 1 [facility] - DOS ON OR AFTER 2022 - DUAL ELIGIBLE - JAIL OPTIONS AND ONE CARE (MEDICARE REPLACEMENT/ADV ANTAGE - HMO) Steven Subramanian [id number] Steven Subramanian Notes Date Note Type Note Provider Name and Address Organization Details Recorded Time 12/04/2021 text/html HPI: History of recurrent DVT's Lovenox decreased recently. Patient called with increased pain in right leg. Feels shaky. No accident or injury. No redness and slight swelling. Declined ED ................... ................... ................... ................... ................... ................... ................... ........ [facility] Nursing Assessment: Comments: [facility] RN did not require any additional information to process this visit ................... ................... ................... ................... ................... ................... ................... ........ Direct Marketing Executive Note: Patient bilateral lower extremity pain times two days. Patient switched from Lovenox to find a parent approximately six days ago without explanation. What are signs remarkable for hypoxia at 93 to 94% on [place]. Bilateral lower extremities positive Homans sign. Distal pulse, motor and sensation intact all extremities. Patient will switch back to Lovenox for the weekend and contact his PCP Tuesday. Patient knows to call 911 if chest pain or shortness of breath suddenly. ................... ................... ................... ................... ................... ................... ................... ........ Disposition: Fulfilled Lcuia Khoury MD [address] [facility],[address], [place], [phone], [employer] 12/05/2021 07:49:52 06/23/2023 text/html HPI: Chronic deep vein thrombosis (DVT) of left lower extremity 09/2018 Paatient seen by PCP 05/31/23 continues on Lovenox and compression stockings. No missed doses per patient. Increased pain and burning with ambulation. ................... ................... ................... ................... ................... ................... ................... ........ [facility] Nurse Triage Notes ([facility]): Comments: Attempted to call for further information- No answer- N Melchor ARIZA ................... ................... ................... ................... ................... ................... ................... ........ Direct Marketing Executive Note From Gatito Rios: Pt co itchy redness on left lower extremity that is also painful. Pt denies fever nausea vomiting diarrhea. Baseline vitals assessed. Extremity redish warm to touch . No edema. [facility] contacted pics uploaded ?500mg keflex given po and RX called in . Pt education on signs indicating the ER. ................... ................... ................... ................... ................... ................... ................... ........ Disposition: Fulfilled Arsalan Vera MD [address] [facility],[address], [place], [phone], [employer] [facility] [employer] 06/23/2023 21:40:40
--- OUTSIDE RECORDS SUMMARY | 2024-07-12 18:04 | XMS_ITS | Clinical Summary ---
Author Organization [employer] Address [address] [place] [address] Care Team Providers Care Radiocommunications Technician Name Role Phone Name, Leland MIMS Primary Care Provider [phone] Allergies No known active allergies Medications * This document contains information received from the source organization and may not represent a complete record from that organization. methadone (Dolophine) 10 MG/5ML solution 105 mg once a day Active Misc. Devices (Pulse Oximeter) misc to check oxygen 022 Active sennosides (Senokot) 8.6 MG tablet take 1 tablet by oral route 2 times every day as needed for constipation 020 Active Naloxone HCl (NARCAN NA) Administer into affected nostril(s). 0.1mg intra-nasal route in one nostril, may repeat every two to three minutes as needed, alternating nostrils with each dose 022 Active Elastic Bandages & Supports (Medical Compression Stockings) misc 15-20 mmHg Dx chronic venous insufficiency, recurrent ulcers (L98.499) 1 each 2 023 Active Neomycin-Bacitr acin-Polymyxin (Triple Antibiotic) 3.5-400-5000 ointment Apply thin layer to affected skin 14 g 2 023 Active docusate sodium (Colace) 100 MG capsuleIndicati ons:Constipatio n, unspecified constipation type TAKE 1 CAPSULE BY MOUTH TWICE A DAY 180 capsule 3 024 Active Varenicline Tartrate, Starter, (Chantix Starting Month ) 0.5 MG X 11 & 1 MG X 42 tablet therapy packIndications :Tobacco use Take 0.5 mg by mouth Once daily for 3 days, THEN 0.5 mg 2 times daily for 4 days, THEN 1 mg 2 times daily for 21 days. 1 each 024 Active varenicline (Chantix) 1 MG tabletIndicatio ns:Tobacco use Take 1 tablet (1 mg) by mouth 2 times daily. Take with full glass of water. 60 tablet 3 024 Active ibuprofen 600 MG tablet Take 1 tablet by mouth 2 times daily. Active hydroCHLOROthia zide 12.5 MG tablet Take 1 tablet by mouth in the morning. Active lisinopril 10 MG tablet TAKE 1 TABLET BY MOUTH DAILY IN THE MORNING 90 tablet 1 024 Active albuterol 108 (90 Base) MCG/ACT inhaler Inhale 2 puffs every 6 (six) hours if needed for wheezing. 18 g 11 024 2024 Active mometasone (Elocon) 0.1 % ointmentIndicat ions:Venous stasis dermatitis of both lower extremities APPLY TOPICALLY EVERY DAY IN THE MORNING 45 g 3 024 Active fluticasone (Flonase) 50 MCG/ACT nasal sprayIndication s:COVID-19 Administer 1 spray into each nostril if needed in the morning and at bedtime for rhinitis. Shake gently. Before first use, prime pump. After use, clean tip and replace cap. 16 g 1 024 Active acetaminophen (Tylenol 8 Hour) 650 MG ER tabletIndicatio ns:COVID-19 Take 1 tablet (650 mg) by mouth every 8 (eight) hours if needed for mild pain. Do not crush, chew, or split. 100 tablet 1 024 Active Enoxaparin Sodium 120 MG/0.8ML solution prefilled syringe Inject 0.8 mL (120 mg) as directed 2 times daily. 48 mL 11 024 2024 Active gabapentin (Neurontin) 800 MG tabletIndicatio ns:Chronic pain syndrome TAKE 1 TABLET BY MOUTH THREE TIMES DAILY 90 tablet 3 024 Active Diclofenac Sodium 1 % gelIndications: Low back pain due to bilateral sciatica Use to affected area bid 60 g 025 Active zolpidem (Ambien) 10 MG tabletIndicatio ns:Insomnia, unspecified type TAKE 1 TABLET BY MOUTH AT BEDTIME NEEDED FOR SLEEP 28 tablet Active DULoxetine (Cymbalta) [address] capsule TAKE 1 CAPSULE BY MOUTH TWICE DAILY. DO NOT BREAK, CRUSH, DISSOLVE OR CHEW 60 capsule Active predniSONE (Deltasone) 20 MG tablet Take 3 tablets (60 mg) by mouth Once per day for 3 days, THEN 2 tablets (40 mg) Once per day for 3 days, THEN 1 tablet (20 mg) Once per day for 3 days, THEN 0.5 tablets (10 mg) Once per day for 4 days. 20 tablet 025 2024 Active methocarbamol (Robaxin) 750 MG tablet Take 1 tablet (750 mg) by mouth 3 times daily for 10 days. 30 tablet 025 2024 Active cyclobenzaprine (Flexeril) 10 MG tablet Take 1 tablet by mouth at bedtime. 2024 Discontinued(D uplicate order (will not trigger notification to Pharmacy)) DULoxetine (Cymbalta) [address] capsule Take 1 capsule (30 mg) by mouth 2 times daily. Do not crush or chew. 60 capsule 2 024 2024 Discontinued Diclofenac Sodium 1 % gel Use to affected area bid 60 g 024 2024 Discontinued(R eorder (will not trigger notification to Pharmacy)) zolpidem (Ambien) 10 MG tabletIndicatio ns:Insomnia, unspecified type TAKE 1 TABLET BY MOUTH AT BEDTIME IF NEEDED FOR SLEEP 28 tablet 024 2024 Discontinued dexAMETHasone (Decadron) 4 MG tablet Take 1 tablet (4 mg) by mouth with breakfast and with evening meal for 7 days. 14 tablet 024 2024 Discontinued(R eorder (will not trigger notification to Pharmacy)) dexAMETHasone (Decadron) 4 MG tabletIndicatio ns:Low back pain due to bilateral sciatica Take 1 tablet (4 mg) by mouth with breakfast and with evening meal for 7 days. 14 tablet 025 2024 Discontinued(D uplicate order (will not trigger notification to Pharmacy)) methocarbamol (Robaxin) 750 MG tabletIndicatio ns:Low back pain due to bilateral sciatica Take 1 tablet (750 mg) by mouth 4 times daily for 10 days. 40 tablet 025 2024 Discontinued Active Problems Problem Noted Date Diagnosed Date Low back pain due to bilateral sciatica 05/17/20 Assessment & Plan (06/15/2024 2:43 PM EST): I advised to use heat for affected area I will prescribe one more time dexamethasone I explain to patient is not a good medication to take for prison due to side effects (weight gain, osteoporosis, increased glucose, anxiety, etc) I will put him on robaxin also I ordered lower back XRAY, I also advise to do his hip and sacrum XRAY after XRAYS are done MRI can be order He has f/u appointment on 06/22/24 and then on 07/06/24, I advise not to miss this appointments Assessment & Plan (05/26/2024 12:20 PM EST): Pt with presumed radiating pain, as pt describes a knife like bilateral pain exacerbated by certain positions, x 2 months Imaging was ordered and pt will complete on Tuesday I offered MRI but pt primary concern today is that a flight is booked for Tuesday and pt is requesting dexamethasone which was helpful for pain when pt was on the med Pt will Return to clinic for follow up once he has returned from travel Declines MRI order today, but will follow up with pcp. Medication and side effects reviewed pt aware to seek ER care if symptoms do not improve Assessment & Plan (05/17/2024 4:36 PM EST): It seems to be muscular, maybe coccygeal luxation vs sacroiliitis? or maybe related to knee OA. Unfortunately both narcotics and NSAIDS (injections) are contraindicated at this time due to methadone and enoxaparine use, I will rx Dexamethasone as he has radiculopathy sxs. I advsied to take it w/meals and hold for severe GI side effects. Continue Tylenol prn and I advised re heat to affected area followed by diclofenac gel bid. Advised to come to acupuncture clinic Will order Xrays due to hx recent fall, fu with PCP Cellulitis 04/17/2024 Assessment & Plan (04/17/2024 3:54 PM EST): Had a fall on left knee. Abrasions on exam. Joint not irritable. See image in chart. -ordered XR 04/17/24 -start doxycycline 04/17/24 -referred to orthopedics 06/17/23 -discussed to return or go to ER if noticing increased redness, swelling or starts having fevers. Claustrophobia 03/15/2024 Dyspnea on exertion 02/07/2024 Assessment & Plan (02/07/2024 3:05 PM EDT): Patient left this medical office AMA because he states he has to go home first to feed his dogs before going to the hospital, my intention was to send patient with ambulance to the emergency room, instead he will go home first and then he will drive himself to the hospital, case was presented to [facility] I let them know patient should have a CTA to r/o pulmonary embolism Connell's cyst of knee, right 02/07/2024 Assessment & Plan (02/07/2024 3:06 PM EDT): I will refer him to orthopedics to address his pain Acquired hammer toe of left foot 03/29/2023 03/29/2023 Neuropathy 03/29/2023 03/29/2023 Other acquired deformities of left foot 03/29/20 23 03/29/2023 longterm (current) use of opiate analgesic 03/1303/23/2023 Overview (03/23/2023): Narcotic contract signed 03/14/2014 Cigarette smoker 09/21/2022 Hard of hearing 09/21/2022 Impaired glucose tolerance 09/21/2022 Total perforation of tympanic membrane 3 Inversion of right nipple 09/06/2022 Primary osteoarthritis of both knees 05/25/2022 Esotropia 05/25/2022 Osteoarthritis of right ankle and foot 2 Nocturnal enuresis 05/25/2022 Refractive error 04/16/2022 Exotropia, right eye 04/16/2022 Chronic deep vein thrombosis (DVT) of left lower extremity 09/20/2018 Chronic pain syndrome 09/20/2018 Heel pain 09/20/2018 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 Chronic peripheral venous hypertension 8 Swelling of lower limb 09/27/2017 Recurrent deep vein thrombosis 09/06/2017 Depressive disorder 05/18/2017 Opioid dependence 05/03/2017 Foot pain 04/18/2017 Migraine without aura, not refractory 02/11/2017 Recurrent major depression in partial remission 02/11/2017 Acute deep vein thrombosis ( DVT) of femoral vein of right lower extremity 12/23/2016 HTN (hypertension) 10/05/2016 Obstructive sleep apnea syndrome 01/14/2016 Chronic pain 08/29/2015 Compression fracture of vertebral column 016 Rotator cuff disorder 08/29/2015 Idiopathic scoliosis 08/29/2015 Insomnia 08/29/2015 Severe obesity 08/29/2015 Chronic narcotic use 08/29/2015 Tobacco dependence syndrome 08/29/2015 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 Abrasions on exam. Joint not irritable. See image in chart. -ordered XR 04/17/24 -start doxycycline 04/17/24 -referred to orthopedics 06/17/23 Anxiety 05/19/2009 Posttraumatic stress disorder 05/19/2009 Resolved Problems Problem Noted Date Diagnosed Date Resolved Date Gouty arthritis of left foot 03/29/2023 03/29/2023 09/14/2023 Plantar wart 12/21/2022 09/14/2023 Straining with stools 09/21/20222023 Shortness of breath 09/21/2022 09/14/19 Assessment & Plan (09/21/2022 2:56 PM EDT): 57 year old man with untreated REAGAN, tobacco dependence, morbid obesity, hx pulmonary embolism with severe SOB when lying down. In exam unable to lie flat without deep breaths, diaphoresis and repot of chest discomfort. O2 95% at rest. Possible mild hypervolemia on exam but baseline unknown. Referral to ER for further assessment. 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 Viral upper respiratory tract infection 11/22/2017 09/14/2023 Disorder of vein 11/11/2017 09/14/2023 Pain in lower limb 09/27/2017 Shoulder pain 01/20/2016 09/14/2023 Acute deep vein thrombosis of lower limb 12/12/2015 09/14/2023 Acute pulmonary embolism 12/12/201504/2023 Dyspepsia 02/02/2010 09/14/2023 Encounters Date Type Department Care Team Description 07/06/2024 9:00 AM EST Office Visit [facility] [address] [facility] [place] [address] Leland Brandon MD Neurogenic claudication due to lumbar spinal stenosis (Primary Dx); Radicular leg pain; Severe low back pain 07/06/2024 Travel 06/25/2024 Telephone [facility] [address] [facility] [place] [address] Keila Rojas, RN Results 06/22/2024 3:45 PM EST Telemedicine [facility] [address] [facility] [place] [address] Chrissie Cosme, DOMINIQUE Chronic joint pain (Primary Dx) 06/22/2024 Travel 06/20/2024 Refill [facility] [address] [facility] [place] [address] Leland Brandon MD 06/18/2024 Orders Only [facility] [address] [place] [address] Amber Ortiz MD 06/15/2024 1:40 PM EST Office Visit [facility] [address] [place] [address] Stacey Wade MD Low back pain due to bilateral sciatica (Primary Dx) 06/15/2024 Refill [facility] [address] [place] [address] Leland Brandon MD Insomnia, unspecified type 06/11/2024 Telephone [facility] [address] [place] [phone] Dave Cabrera MA Chartprep 05/26/2024 11:00 AM EST Office Visit [facility] [address] [place] [address] Ana Larios NP Low back pain due to bilateral sciatica (Primary Dx) 05/25/2024 Telephone [facility] [address] [place] [address] Leland Brandon MD Nurse Triage 05/25/2024 Telephone [facility] [address] [place] [address] Leland Brandon MD Med Refill 05/25/2024 Refill [facility] [address] [place] [address] Leland Brandon MD Chronic pain syndrome 05/21/2024 Refill [facility] [address] [place] [phone] Leland Brandon MD Insomnia, unspecified type 05/17/2024 4:00 PM EST [facility] [address] [address] Amber Ortiz MD Low back pain due to bilateral sciatica (Primary Dx) 05/17/2024 Telephone [facility] [address] [place] [address] Keila Rojas, ANNITA EMR History 05/07/2024 Refill [facility] [address] [place] [address] Leland Brandon MD 04/30/2024 Telephone [facility] [address] [place] [address] Shahida Duque MA CHART PREP 04/25/2024 Telephone [facility] [address] [place] [address] Lyudimla Garcia MA Chart Prep 04/24/2024 Telephone [facility] [address] [place] [address] Leland Brandon MD ER Follow-up 04/24/2024 Refill [facility] [address] [place] [address] [place] [address] Name, MD Leland Insomnia, unspecified type 04/18/2024 Telephone [facility] [address] [place] [address] Lili Cox RN 04/17/2024 3:40 PM EST Office Visit [facility] [address] [place] [address] Barbie Levy MD Acute pain of left knee (Primary Dx); Cellulitis, unspecified cellulitis site; COVID-19 from Last 3 Months Immunizations Name Administration Dates Next Due Influenza Injectable Quadriv alant Preservative Free IIV4 MDCK 04/10/2020 Influenza injectable quadriv alent IIV4 with preservative 03/20/2018,03/05/2016 Influenza injectable quadriv alent preservative free 04/05/2023,03/24/2021,05/17/2019 Influenza, IIV3, injectable 03/30/2017 Influenza, seasonal, injecta ble, preservative free 03/19/2024 Moderna Covid-19 Vaccine 12+ 06/18/2021,10/31/19 21,10/02/2020 Pneumococcal Conjugate PCV 20 09/14/2023 Pneumococcal Polysaccharide PPSV23 11/29/2015 Td (adult), unspecified 07/09/1998 Tdap 03/20/2018 Zoster, Recombinant 08/26/2020,06/25/2020 Social History Tobacco Use Types Packs/Day Years [...] your housing situation today? I have andrew sing 09/06/[address] you li [...] Orientation Asexual 12/08/2023 1: 32 PM EDT Last Filed Vital Signs Vital Sign Reading [...] Mass Index 39.79 07/06/2024 10:39 AM EST Plan of Treatment Upcoming Encounters Date Type Department Care Team (Late st Contact Info) Description 08/09/2024 11:30 AM EST Telemedicine [facility] [address] [place] [address] Name, MD Leland [address] [place] [address] 09/17/2024 10:15 AM EDT Office Visit [facility] [address] [facility] [place], [place] [phone] Name, MD Leland [address] [place] [address] Health Maintenance Due Date Last Done Comments CT Colonography 1965 FIT DNA/Cologuard 1965 FIT 1965 FOBT 1965 Sigmoidoscopy 1965 Hepatitis A Vaccines (1 of 2 - Risk 2-dose series) 1982 RSV Patients and Patients Aged 60 years or older (1 - Risk 60-74 years 1-dose series) 2023 COVID-19 Vaccine ( season) 2024 06/18/2021, 10/30/2020, 10/02/2020 SDOH Screening 09/05/2024 09/06/2023 Depression Screening 09/13/2024 09/14/2023, 09/14/19 Alcohol/Substance Use Screening 12/13/2024 12/14/2023 Tobacco Screening 07/06/2025 07/06/2024 DTaP/Tdap/Td Vaccines (2 - Td or Tdap) 03/20/2028 03/20/2018, 07/09/1998 Lipid Panel 10/13/2028 10/14/2023, 08/12, 06/25/2020 Colonoscopy 07/14/2033 07/14/2023 Colorectal Cancer Screening 07/14/2033 Zoster Vaccines Completed 08/26/2020, 06/25/2020 Pneumococcal Vaccine: 50+ Years Completed 09/14/2023, 11/29/2015 HIV Screening Completed 10/14/2023 Hepatitis C Screening [...] patient's age to complete this topic Meningococcal Vaccine Aged Out No darío patrice eligible based on patient's age to complete this topic RSV under 20 months Aged Out No longe r eligible based on patient's age to complete this topic Rotavirus Vaccines Aged Out No longer eligible based on patient's age to complete this topic Procedures Procedure Name Priority Date/Time Associated Diagnosis Comments XR SACRUM COCCYX 2+ VIEWS Routine 06/19/2024 8:32 AM EST Low back pain due to bilateral sciatica XR HIPS BILATERAL 3 OR 4 VIEWS WITH OR WITHOUT PELVIS Routine 06/19/2024 8:31 AM EST XR LUMBAR SPINE 2-3 VIEWS Routine 06/18/2024 4:40 PM EST Low back pain due to bilateral sciatica XR KNEE 4+ VIEWS LEFT Routine 04/17/2024 3:57 PM EST Acute pain of left knee HEPATITIS C AB W/REFL TO HCV RNA, QN, PCR Routine 10/14/2023 11:05 AM EDT PE (physical exam), annual Tobacco use disorder Screening for HIV (human immunodeficiency virus) Need for hepatitis C screening test HIV 1/2 ANTIGEN/ANTIBODY, FOURTH GENERATION W/RFL Routine 10/14/2023 11:05 AM EDT PE (physical exam), annual Tobacco use disorder Screening for HIV (human immunodeficiency virus) Need for hepatitis C screening test LIPID PANEL, STANDARD Routine 10/14/2023 11:05 AM EDT PE (physical exam), annual Tobacco use disorder Screening for HIV (human immunodeficiency virus) Need for hepatitis C screening test HM COLONOSCOPY Routine 07/14/2023 from Last 3 Months or Most Recently Relevant to Health Maintenance Results * XR Sacrum Coccyx 2+ Views (06/19/2024 8:32 AM EST) Anatomical Region Laterality Modality Sacrum, Coccyx Radiographic Rasheeda ging 06/19/2024 8:32 AM EST Narrative 06/19/2024 8:34 AM EST ? [facility] ?[address] ?[place], [place] [address] ?XRay Report ? Signed ? Patient: Steven Novak ?MR#: M ?? [id number] ? : 1965 ?Acct:[id number] ? Age/Sex: 59 / M ?ADM Date: 06/18/24 ? Loc: HO.XRAY ? Attending Dr: Amber Ortiz MD ? Ordering Physician: Amber Ortiz MD ?? Date of Service: 06/18/24 ?? Procedure(s): XR sacrum coccyx min 2V ?? Accession Number(s): [id number] ? cc: Amber Ortiz MD; Leland Brandon MD ? CLINICAL HISTORY: Bl hip pain coccygela pain ?? sp fall 2w ago ? Exam: AP and lateral views of the sacrum and coccyx. ? Comparison: Right hip radiographs December 14, 2023. ? Findings: ? No displaced fractures of the sacrum or coccyx are identified. ?? Arcuate lines of the sacrum are intact. ?? Mild degenerative change of the sacroiliac joints. ? Impression: ? No fracture. ? This document has been electronically signed by: Drew Germain MD on ?? 06/19/2024 08:32:40 ? Dictated By: ?Drew Germain MD ? Signed By: ?<Electronically signed by Drew Germain MD in OV> ? 06/19/24 0833 ? DD/ 1 ? TD/TT: 06/19/24831 ? Race Steward: ? Procedure Note Darlin, Image - 06/19/[address] [address] XRay Report Signed Patient: Michele Novak#: M [id number] : 1965Acct:[id number] Age/Sex: 59 / MADM Date: 06/18/24 Loc: HO.XRAY Attending Dr: Amber Ortiz MD Ordering Physician: Amber Ortiz MD Date of Service: 06/18/24 Procedure(s): XR sacrum coccyx min 2V Accession Number(s): [id number] cc: Amber Ortiz MD; Name,Leland MIMS CLINICAL HISTORY: Bl hip pain coccygela pain sp fall 2w ago Exam: AP and lateral views of the sacrum and coccyx. Comparison: Right hip radiographs December 14, 2023. Findings: No displaced fractures of the sacrum or coccyx are identified. Arcuate lines of the sacrum are intact. Mild degenerative change of the sacroiliac joints. Impression: No fracture. This document has been electronically signed by: Drew Germain MD on 06/19/2024 08:32:40 Dictated By: Drew Germain MD Signed By: <Electronically signed by Drew Germain MD in OV> 06/19/2433 DD/ 1 TD/TT: 06/19/24831 Race Steward: Amber Ortiz MD IMG XR PROCEDURES Edited Result - Final * XR Hips Bilateral 3 or 4 Views with or without Pelvis (06/19/2024 8:31 AM EST) Anatomical Region Laterality Modality Lower Extremities, Hip Bilateral Radiograp hic Imaging 06/19/2024 8:31 AM EST Narrative 06/19/2024 8:32 AM EST ? [facility] ?[address] ?[place] [address] ?XRay Report ? Signed ? Patient: Moris Singh,Steven ?MR#: M ?? [id number] ? : 1965 ?Acct:[id number] ? Age/Sex: 59 / M ?ADM Date: 01/06/25 ? Loc: HO.XRAY ? Attending Dr: Cha. Angel MD ? Ordering Physician: Amber Ortiz MD ?? Date of Service: 06/18/24 ?? Procedure(s): XR hip RAINE min 3V w/wo pel ?? Accession Number(s): [id number] ? cc: Amber Ortiz MD; Name,Leland MIMS ? CLINICAL HISTORY: PAIN ? Exam: [...] by Drew Germain MD in OV> ? 06/19/24 0832 ? DD/ 0 ? TD/TT: 06/19/24830 ? Race Steward: ? Procedure Note Darlin, Image - 06/19/2024 [place] [address] XRay Report Signed Patient: Michele Novak#: M [id number] : 1965Acct:[id number] Age/Sex: 59 / MADM Date: 06/18/24 Loc: ROLLY Attending Dr: Amber Ortiz MD Ordering Physician: Amber Ortiz MD Date of Service: 06/18/24 Procedure(s): XR hip RAINE min 3V w/wo pel Accession Number(s): [id number] cc: Amber Ortiz MD; Name,Leland MIMS CLINICAL [...] signed by Drew Germain MD in OV> 06/19/2432 DD/ 0 TD/TT: 06/19/24830 Race Steward: us Amber Ortiz MD IMG XR PROCEDURES Edited Result - Final * XR Lumbar Spine 2-3 Views (06/18/2024 4:40 PM EST) Anatomical Region Laterality Modality Spine, L-spine Radiographic Rasheeda ging 06/18/2024 4:40 PM EST Narrative 06/18/2024 4:41 PM EST ? [facility] ?[address] ?[place] [address] ?XRay Report ? Signed ? Patient: Steven Novak ?MR#: M ?? [id number] ? : 1965 ?Acct:[id number] ? Age/Sex: 59 / M ?ADM Date: 06/18/24 ? Loc: HO.XRAY ? Attending Dr: Amber Ortiz MD ? Ordering Physician: Stacey Wade MD ?? Date of Service: 06/18/24 ?? Procedure(s): XR lumbar spine 2-3V ?? Accession Number(s): [id number] ? cc: Stacey Wade MD; Name,Leland MIMS ? CLINICAL HISTORY: worsening chroic pain ? 4 views lumbar spine ? Comparison: None ? Findings: ?? Normal alignment. ?? No acute fractures . Grade 1 anterolisthesis of L4 on L5. ?? Multilevel disc space narrowing and endplate osteophyte formation, as well ?? as facet hypertrophy. ? IMPRESSION: ?? No acute findings. ? This document has been electronically signed by: Blanquita Cantor MD on ?? 06/18/2024 16:40:04 ? Dictated By: ?Blanquita Cantor MD ? Signed By: ?<Electronically signed by Blanquita Cantor MD in OV> ? 06/18/24 1640 ? DD/ 1640 ? TD/TT: 06/18/24 1640 ? Race Steward: ? Procedure Note Mery Saeed - 06/18/2024 [place] [address] [place] [address] XRay Report Signed Patient: Michele Novak#: M [id number] : 1965Acct:[id number] Age/Sex: 59 / MADM Date: 06/18/24 Loc: HO.ALENAAY Attending Dr: Amber Ortiz MD Ordering Physician: Stacey Wade MD Date of Service: 06/18/24 Procedure(s): XR lumbar spine 2-3V Accession Number(s): [id number] cc: Stacey Wade MD; Name,Leland MIMS CLINICAL [...] Blanquita Cantor MD in OV> 06/18/24 1640 DD/ 1640 TD/TT: 06/18/24 1640 Race Steward: us Stacey Maldonado MD IMG XR PROCEDURES Fin al Result * XR Knee 4+ Views Left (04/17/2024 3:57 PM EST) Anatomical Region Laterality Modality Lower Extremities, Knee Left Radiogra phic Imaging 04/17/2024 3:57 PM EST Narrative 04/18/2024 9:17 AM EST ?[facility] ?[address] ?[place] [address] ?XRay Report ? Signed ? Patient: Steven Novak ?MR#: M ?? [id number] ? : 1965 ?Acct:[id number] ? Age/Sex: 59 / M ?ADM Date: 11/05/24 ? Loc: HO.HHCX ? Attending Dr: Barbie Levy MD ? Ordering Physician: Barbie Levy MD ?? Date of Service: 04/17/24 ?? Procedure(s): XR knee LT 4V ?? Accession Number(s): [id number] ? cc: Barbie Levy MD ? EXAMINATION: ?? XR KNEE, LEFT ? CLINICAL INFORMATION: ?? Left knee pain following a fall. ? COMPARISON: ?? Left knee radiographs dated 11/17/2022. ? TECHNIQUE: ?? Four views of the left knee. ? FINDINGS: ?? Ulvznctw-dv-ybovtq patellofemoral as well as mild medial and lateral ?? compartment joint space narrowing. Tricompartmental marginal ?? osteophytes. No acute fracture or dislocation. No concerning lytic or ?? blastic osseous lesion. Small joint effusion. Posterior central ?? ossified loose bodies measuring up to 0.8 and 1.0 cm in greatest ?? dimension. Overall, findings are similar when compared to the prior ?? radiographs. ? XR/XR knee LT 4V ?? IMPRESSION: ?? Tricompartmental osteoarthritis, most severe within the patellofemoral ?? compartment. Small joint effusion and posterior central ossified loose ?? bodies, similar when compared to the prior radiographs. ? Electronically signed by: ??Cameron Earl MD ??04/18/2024 09:14 AM EST ? Dictated By: ?Cameron Earl MD ? Signed By: ?<Electronically signed by Cameron Earl MD in OV> ?04/18/24 0914 ? DD/ 1557 ? TD/TT: 04/17/24 1600 ? Race Steward: SR ? Procedure Note Darlin, Image - 04/18/2024 [place] [address] XRay Report Signed Patient: Michele Novak#: M [id number] : 1965Acct:[id number] Age/Sex: 59 / MADM Date: 04/17/24 Loc: HO.HHCX Attending Dr: Barbie Levy MD Ordering Physician: Barbie Levy MD Date of Service: 04/17/24 Procedure(s): XR knee LT 4V Accession Number(s): [id number] cc: Barbie Levy MD EXAMINATION: XR KNEE, LEFT CLINICAL INFORMATION: Left knee pain following a fall. COMPARISON: Left knee radiographs dated 11/17/2022. TECHNIQUE: Four views of the left knee. FINDINGS: Cwdzdrhj-zg-vnykpa patellofemoral as well as mild medial and lateral compartment joint space narrowing. Tricompartmental marginal osteophytes. No acute fracture or dislocation. No concerning lytic or blastic osseous lesion. Small joint effusion. Posterior central ossified loose bodies measuring up to 0.8 and 1.0 cm in greatest dimension. Overall, findings are similar when compared to the prior radiographs. XR/XR knee LT 4V IMPRESSION: Tricompartmental osteoarthritis, most severe within the patellofemoral compartment. Small joint effusion and posterior central ossified loose bodies, similar when compared to the prior radiographs. Electronically signed by: Cameron Earl MD 04/18/2024 09:14 AM EST Dictated By: Cameron Earl MD Signed By: <Electronically signed by Camerno Earl MD in OV> 04/18/24 0914 DD/ 1557 TD/TT: 04/17/24 1600 Race Steward: SR Barbie Levy MD IMG XR PROCEDURES Edited R esult - Final * Hepatitis C Antibody with Reflex to HCV, RNA, Quantitative, Real-Time PCR (10/14/2023 11:05 AM EDT) Pathologist [facility] Hepatitis C Antibody Nonreactive Nonreactive [facility] Comment:Antibodies to HCV no t detected; does not exclude early acuteHCV infection. Blood Venous blood specimen / Unknown 10/14/2023 11:05 AM EDT 10/14/2023 1:15 PM EDT Leland Brandon MD LAB BLOOD ORDERABLES Final Resul t [facility] [address] [place] [phone] * HIV-1/2 Antigen and Antibodies, Fourth Generation, with Reflexes (10/14/2023 11:05 AM EDT) HIV AB/AG Nonreactive Nonreactive [facility] Comment:HIV-1 p24 Ag and/or HIV-1/HIV-2 Ab not detected.A test result that is nonreactive does not exclude thepossibility of exposure to or infection with HIV-1 and/orHIV-2. Nonreactive results in this assay for individualswith prior exposure to HIV-1 and/or HIV-2 may be due toantigen and antibody levels that are below the limit ofdetection of this assay.The [employer] HIV Ag/Ab Combo assay result andsupplemental assay results should be interpreted inconjunction with the patient's clinical presentation,history and other laboratory results. If the results areinconsistent with clinical evidence, additional testing issuggested to confirm the result. Blood Venous blood specimen / Unknown 10/14/2023 11:05 AM EDT 10/14/2023 1:15 PM EDT us Leland Name LAB BLOOD ORDERABLES Final Resul t [facility] [address] [place] [phone] * (ABNORMAL) Lipid Panel, Standard (10/14/2023 11:05 AM EDT) Triglycerides 105 <150 mg/dL [facility] Comment:Desirable Triglyceri de: less than 150 mg/dLBorderline High Triglyceride 150-199 mg/dLHigh Triglyceride: 200-499 mg/dLVery High Triglyceride: greater than or equal to 5OO mg/dL Cholesterol 192 <200 mg/dL [facility] Comment:Desirable Cholestero l: less than 200 mg/dLBorderline High Cholesterol: 200-239 mg/dLHigh Cholesterol: greater than 239 mg/dL LDL Cholesterol Calculated 102(H) <100 mg/dL [facility] Comment:Desirable LDL: less than 100 mg/dLNear Optimal/Above Optimal LDL: 110- 129 mg/dLBorderline High LDL: 130-159 mg/dLHigh LDL: 160-189 mg/dLVery High LDL: greater than or equal to 190 mg/dL HDL Cholesterol 69 >40 mg/dL [facility] Comment:Desirable HDL: great er than 40 mg/dL Note: This HDL assay may give artificially low results in patients with liver disease. Blood Venous blood specimen / Unknown 10/14/2023 11:05 AM EDT 10/14/2023 1:15 PM EDT us Leland Brandon MD LAB BLOOD ORDERABLES Final Resul t [facility] [address] [place] [phone] * Hm Colonoscopy (07/14/2023) Colonoscopy Normal Normal Comment:Normal Colonoscopy r epeat 10 years us Leland Brandon MD HEALTH MAINTENANCE Final Result from Last 3 Months or Most Recently Relevant to Health Maintenance [place] [address] [place] [address] - [facility] Care Teams Radiocommunications Technician Relationship Specialty Start Date End Date Name, MD Leland [address] [place] [address] PCP - General Family Medicine 08/26/15
--- OUTSIDE RECORDS SUMMARY | 2024-07-12 18:04 | XMS_ITS | Encounter Summary ---
Author Organization [employer] Address [address] [place] [address] Care Team Providers Care Negative Retoucher Name Role Phone Name, Leland MIMS Primary Care Provider [phone] Reason for Visit * Reason Comments Pain of Lower Extremities Encounter Details Date Type Department Care Team ([facility] st Contact Info) Description 06/15/2024 1:40 PM EST Office Visit [facility] [address] [place], [place] [phone] Stacey Wade MD [address] [place] [address] Low back pain due to bilateral sciatica (Primary Dx) Social History Tobacco Use Types [...] Sign Reading Time Taken Comments Blood Pressure 150/83 06/15/2024 1:28 PM EST Pulse 111 06/15/2024 1:28 PM EST Temperature 36.4 ??C (97.5 ??F) 06/15/2024 1:28 PM ES T Respiratory Rate 18 06/15/2024 1:28 PM EST Oxygen Saturation 97% 06/15/2024 1:28 PM EST Inhaled Oxygen Concentration - - Weight - - Height - - Body Mass Index - - documented in this encounter Progress Notes * Stacey Maldonado MD - 06/15/2024 1:40 PM EST SUBJECTIVE: Steven Singh is a 59 y.o. year old male who presents for sick visit . Acute Concerns: Patient with known lower back kern and bilateral hip and leg pain is here with worsening pain, reports he feels he is being split in 2, his pain is 10/10, tells me only thing that had helped him is dexamethasone, patient was on narcotic for many years he does not want to be on narcotics anymore and he is currently on methadone, he was supposed to have XARYs and possibly MRI but he needed to go to [place], he tells me he got back and pain is much worse, denies fever, denies sphincter relaxation, denies IV drug abuse Social History Social History Narrative Not on file Patient Active Problem List Diagnosis Acute deep vein thrombosis (DVT) of femoral vein of right lower extremity (CMS/HCC) Anxiety Primary osteoarthritis of both knees Chronic deep vein thrombosis (DVT) of left lower extremity (CMS/HCC) Chronic pain Chronic pain syndrome Chronic peripheral venous hypertension Compression fracture of vertebral column (CMS/HCC) Constipation Depressive disorder Rotator cuff disorder Esotropia HTN (hypertension) Foot pain Heel pain Idiopathic scoliosis Osteoarthritis of right ankle and foot Insomnia Migraine without aura, not refractory Severe obesity (CMS/HCC) Chronic narcotic use Nocturnal enuresis Opioid dependence ([facility]/HCC) Obstructive sleep apnea syndrome Recurrent deep vein thrombosis ([facility]/HCC) Recurrent major depression in partial remission ([facility]/HCC) Swelling of lower limb 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 Review of Systems Constitutional: Negative. HENT: Negative. Respiratory: Negative. Cardiovascular: Negative. Musculoskeletal: Positive for arthralgias, back pain and myalgias. OBJECTIVE: Vitals: 06/15/24 1328 BP: (!) 150/83 BP Location: Right arm Patient Position: Sitting BP Cuff Size: Large adult Pulse: (!) 111 Resp: 18 Temp: 97.5 ??F (36.4 ??C) TempSrc: Temporal SpO2: 97% Physical Exam Constitutional: Appearance: Normal appearance. Cardiovascular: Rate and Rhythm: Normal rate and regular rhythm. Pulmonary: Effort: Pulmonary effort is normal. Breath sounds: Normal breath sounds. Abdominal: General: Abdomen is flat. Palpations: Abdomen is soft. Musculoskeletal: Lumbar back: Spasms and tenderness present. Decreased range of motion. Right lower leg: No edema. Left lower leg: No edema. Neurological: Mental Status: He is alert. Follow Up: No follow-ups on file. Current Outpatient Medications on File Prior to Visit Medication Sig Dispense Refill acetaminophen (Tylenol 8 Hour) 650 MG ER tablet Take 1 tablet (650 mg) by mouth every 8 (eight) hours if needed for mild pain. Do not crush, chew, or split. 100 tablet 1 albuterol 108 (90 Base) MCG/ACT inhaler Inhale 2 puffs every 6 (six) hours if needed for wheezing. 18 g 11 cyclobenzaprine (Flexeril) 10 MG tablet Take 1 tablet by mouth at bedtime. docusate sodium (Colace) 100 MG capsule TAKE 1 CAPSULE BY MOUTH TWICE A DAY 180 capsule 3 DULoxetine (Cymbalta) [address] capsule Take 1 capsule (30 mg) by mouth 2 times daily. Do not crush or chew. 60 capsule 2 Elastic Bandages & Supports (Medical Compression Stockings) misc 15-20 mmHg Dx chronic venous insufficiency, recurrent ulcers (L98.499) 1 each 2 Enoxaparin Sodium 120 MG/0.8ML solution prefilled syringe Inject 0.8 mL (120 mg) as directed 2 times daily. 48 mL 11 fluticasone (Flonase) 50 MCG/ACT nasal spray Administer 1 spray into each nostril if needed in the morning and at bedtime for rhinitis. Shake gently. Before first use, prime pump. After use, clean tip and replace cap. 16 g 1 gabapentin (Neurontin) 800 MG tablet TAKE 1 TABLET BY MOUTH THREE TIMES DAILY 90 tablet 3 hydroCHLOROthiazide 12.5 MG tablet Take 1 tablet by mouth in the morning. ibuprofen 600 MG tablet Take 1 tablet by mouth 2 times daily. lisinopril 10 MG tablet TAKE 1 TABLET BY MOUTH DAILY IN THE MORNING 90 tablet 1 methadone (Dolophine) 10 MG/5ML solution 105 mg once a day Misc. Devices (Pulse Oximeter) misc to check oxygen mometasone (Elocon) 0.1 % ointment APPLY TOPICALLY EVERY DAY IN THE MORNING 45 g 3 Naloxone HCl (NARCAN NA) Administer into affected nostril(s). 0.1mg intra-nasal route in one nostril, may repeat every two to three minutes as needed, alternating nostrils with each dose Szjrgbie-Kfhqxpesbm-Vhfyvmfcg (Triple Antibiotic) 3.5-400-5000 ointment Apply thin layer to affected skin 14 g 2 sennosides (Senokot) 8.6 MG tablet take 1 tablet by oral route 2 times every day as needed for constipation varenicline (Chantix) 1 MG tablet Take 1 tablet (1 mg) by mouth 2 times daily. Take with full glassof water. 60 tablet 3 Varenicline Tartrate, Starter, (Chantix Starting Month ) 0.5 MG X 11 & 1 MG X 42 tablet therapy pack Take 0.5 mg by mouth Once daily for 3 days, THEN 0.5 mg 2 times daily for 4 days, THEN 1 mg2 times daily for 21 days. 1 each 0 zolpidem (Ambien) 10 MG tablet TAKE 1 TABLET BY MOUTH AT BEDTIME IF NEEDED FOR SLEEP 28 tablet 0 [DISCONTINUED] dexAMETHasone (Decadron) 4 MG tablet Take 1 tablet (4 mg) by mouth with breakfast and with evening meal for 7 days. 14 tablet 0 [DISCONTINUED] Diclofenac Sodium 1 % gel Use to affected area bid 60 g 0 No current facility-administered medications on file prior to visit. Problem List Items Addressed This Visit Low back pain due to bilateral sciatica - Primary I advised to use heat for affected area I will prescribe one more time dexamethasone I explain to patient is not a good medication to take for shelter due to side effects (weight gain, osteoporosis, increased glucose, anxiety, etc) I will put him on robaxin also I ordered lower back XRAY, I also advise to do his hip and sacrum XRAY after XRAYS are done MRI canbe order He has f/u appointment on 06/22/24 and then on 07/06/24, I advise not to miss this appointments Relevant Medications dexAMETHasone (Decadron) 4 MG tablet Diclofenac Sodium 1 % gel methocarbamol (Robaxin) 750 MG tablet Other Relevant Orders XR Lumbar Spine 2-3 Views documented in this encounter Miscellaneous Notes * Assessment & Plan Note - Stacey Maldonado MD - 06/15/2024 2:43 PM EST Associated Problem(s): Low back pain due to bilateral sciatica I advised to use heat for affected area I will prescribe one more time dexamethasone I explain to patient is not a good medication to take for intermediate project manager due to side effects (weight gain, osteoporosis, increased glucose, anxiety, etc) I will put him on robaxin also I ordered lower back XRAY, I also advise to do his hip and sacrum XRAY after XRAYS are done MRI canbe order He has f/u appointment on 06/22/24 and then on 07/06/24, I advise not to miss this appointments documented in this encounter Plan of Treatment Upcoming Encounters Date Type Department Care Team (Late st Contact Info) Description 08/09/2024 11:30 AM EST Telemedicine [address] [address] NameLeland MD [address] [place] [phone] 09/17/2024 10:15 AM EDT Office Visit [address] [address] Name, MD Leland [address] [place] [phone] documented as of this encounter Procedures Procedure Name Priority Date/Time Associated Diagnosis Comments XR LUMBAR SPINE 2-3 VIEWS Routine 06/18/2024 4:40 PM EST Low back pain due to bilateral sciatica documented in this encounter Results * XR Lumbar Spine 2-3 Views (06/18/2024 4:40 PM EST) Anatomical Region Laterality Modality Spine, L-spine Radiographic Rasheeda ging 06/18/2024 4:40 PM EST Narrative 06/18/2024 4:41 PM EST ? [facility] ?[address] ?[place] [address] ?XRay Report ? Signed ? Patient: Moris Francisco,Steven ?MR#: M ?? [id number] ? : 1965 ?Acct:[id number] ? Age/Sex: 59 / M ?ADM Date: 01/06/25 ? Loc: HO.XRAY ? Attending Dr: Amber Ortiz MD ? Ordering Physician: Stacey Wade MD ?? Date of Service: 06/18/24 ?? Procedure(s): XR lumbar spine 2-3V ?? Accession Number(s): [id number] ? cc: Stacey Wade MD; Name,Leland MIMS [...] DD/ 1640 ? TD/TT: 06/18/24 1640 ? Allocation Analyst: ? Procedure Note Darlin, Image - 06/18/[address] [address] XRay Report Signed Patient: Michele Novak#: M [id number] : 1965Acct:[id number] Age/Sex: 59 / MADM Date: 06/18/24 Loc: ROLLY Attending Dr: Amber Ortiz MD Ordering Physician: Stacey Wade MD Date of Service: 06/18/24 Procedure(s): XR lumbar spine 2-3V Accession Number(s): [id number] cc: Stacey Wade MD; Name,Leland MIMS CLINICAL [...] 06/18/24 1640 DD/ 1640 TD/TT: 06/18/24 1640 Allocation Analyst: Stacey Maldonado MD IMG XR PROCEDURES Fin al Result documented in this encounter Visit Diagnoses Diagnosis Low back pain due to bilateral sciatica- Primary documented in this encounter Additional Health Concerns Assessment Noted Time PHQ-9 Depression Total Score: 0 09/14/19 24 3:10 PM EDT documented as of this encounter Care Teams Negative Retoucher Relationship Specialty Start Date End Date Name, MD Leland [address] [place] [address] PCP - General Family Medicine 08/26/15 documented as of this encounter
--- OUTSIDE RECORDS SUMMARY | 2024-07-12 18:04 | XMS_ITS | Clinical Summary ---
Author Organization [facility] Address [address] [place] [address] Care Team Providers Care Non Linear Editor Name Role Phone No, Pcp Primary Care Provider Unavailabl e Allergies No known active allergies Medications No known medications Active Problems Problem Noted Date Diagnosed Date Exotropia, right eye 04/16/2022 Refractive error 04/16/2022 Social History Tobacco Use Types Packs/Day Years Used Date Smoking Tobacco: Never Smokeless Tobacco: Never Tobacco Cessation:Counseling Given: Not Answered Sex and Gender Information Value Date Recorded Sex Assigned at Not on file Legal Sex Male 2:14 PM EDT Gender Identity Not on file Sexual Orientation Not on file Plan of Treatment Health Maintenance Due Date Last Done Comments Cologuard 1965 Colon Cancer Screening 1965 Colonoscopy 1965 FOBT / Fit Test 1965 HIV Screening 1965 Hepatitis C Screening 1965 Sigmoidoscopy 1965 RSV Vaccine (60+ years old and patients) (1 - Risk 60-74 years 1-dose series) 2023 COVID-19 Vaccine ( season) 2024 06/18/2021, 10/30/2020, 10/02/2020 Influenza Vaccine (#1) 2024 , 04/10/2020, 05/17/2019, Additional history exists Alcohol/Substance Use Screening 06/13/2024 Depression Screening and Follow-Up 06/13/2024 Social Drivers of Health Annual Screening 06/13/2024 DTaP,Tdap,and Td Vaccines (2 - Td or Tdap) 03/20/2028 03/20/2018, 07/09/1998 Pneumococcal Vaccine: Pediatric (0-5 Years) and At-Risk Patients (6-64 Years) Aged Out 11/29/2015 No longer eligible based on patient's age to complete this topic Zoster Vaccines Completed 08/26/2020, 06/25/2020 Hepatitis B Vaccines Aged Out No long er eligible based on patient's age to complete this topic Insurance [facility] Care Teams Non Linear Editor Relationship Specialty Start Date End Date No, Pcp HIREN PCP - General 01/29/22
--- OUTSIDE RECORDS SUMMARY | 2024-07-12 18:04 | XMS_ITS | Referral Summary ---
Author Organization [facility] Address [address] [place] [address] Care Team Providers Care Wire Spring Relay Adjuster Name Role Phone No, Pcp Primary Care [...] Orientation Not on file Plan of Treatment Not on file Insurance Care Teams Wire Spring Relay Adjuster Relationship Specialty Start Date End Date No, Pcp HIREN PCP - General 01/29/22
== END 2024-07-12 14:41 | disposition home or self-care (01) ==
PROVIDERS: PCP Internal Medicine Geriatric Medicine; Visit Provider Surgery Vascular Surgery
DX: I83.12 Varicose veins of left lower extremity with inflammation (principal)
CPT/HCPCS: 99214

== ENCOUNTER → 2024-07-12 14:15 | Outpatient (BNVA) | payer OTHER, SELFPAY | PROVIDERS: PCP Internal Medicine Geriatric Medicine; Visit Provider Surgery Vascular Surgery | DX: I83.12 Varicose veins of left lower extremity with inflammation (principal) | CPT/HCPCS: 99212 ==

== ENCOUNTER 2024-07-16 18:07 | Outpatient (REF) | payer OTHER, SELFPAY ==
--- NOTE | ~2024-07-16 | MR_ITS ---
EXAMINATION: MR LUMBAR SPINE WITHOUT CONTRAST CLINICAL INFORMATION: Severe low back pain. Neurogenic claudication. COMPARISON: None available. TECHNIQUE: MRI of the lumbar spine was obtained using routine sequences without contrast. FINDINGS: Last rib-bearing vertebra labeled T12. No bone marrow STIR signal abnormality. Multilevel marginal osteophyte formation and disc desiccation from T12-L1 to L5-S1. Grade 1 anterolisthesis L4-5. There is a 12 mm intrinsic hyperintense T1 and T2 bone lesion on the posterior right L1 vertebra likely intraosseous hemangioma. The conus medullaris ends at superior endplate of L1 with normal signal. Prominent epidural fat in a circumferential fashion from L3 to the sacrum. T12-L1: Facet joint hypertrophy as well as ligamentum flavum. Broad-based disc bulging. Bilateral neuroforamina narrowing. No central spinal canal stenosis. L1-2: Broad-based disc bulging. Facet joint and ligamentum flavum hypertrophy. Reduced AP diameter of the thecal sac and the neural foramina likely encroaching the exiting nerve roots. L2-3: Broad-based disc bulging. Facet joint and ligamentum flavum hypertrophy. Reduced AP diameter of the thecal sac with the CSF effacement. Bilateral neuroforamina stenosis likely encroaching the neural elements both thecal sac and the exiting nerve roots. L3-4: Broad-based disc bulging. Facet joint and ligamentum flavum hypertrophy. CSF effacement of the thecal sac. Bilateral neuroforamina stenosis encroaching posterior compressing the exiting nerve roots and encroaching the neural elements of the thecal sac. L4-5: Grade 1 anterolisthesis, broad-based disc bulging, facet joint and ligamentum flavum hypertrophy resulting in CSF effacement of the thecal sac and bilateral neuroforamina stenosis, right greater than the left compressing the neural elements both thecal sac and exiting nerve roots. L5-S1: Prominent epidural fat. Broad-based disc bulging. Facet joint and ligamentum flavum hypertrophy. Reduced AP diameter of the thecal sac and the neural foramina likely encroaching the neural elements. Asymmetric volume loss of the right psoas muscle. Probable cystic lesions in the parapelvic left kidney. MR/MR lumbar spine wo con IMPRESSION: Multilevel lumbar spondylosis resulting in grade 1 anterolisthesis L4-5 and multilevel central spinal canal and neuroforamina stenosis more conspicuous at L4-5 and to a lesser extent L2-3, L3-4 and L5-S1 levels. Epidural lipomatosis from L3 to sacrum. Electronically signed by: Santana Greer MD 07/17/2024 07:55 AM JODIE
--- OUTSIDE RECORDS SUMMARY | 2024-07-16 18:11 | XMS_ITS | Encounter Summary ---
Author Organization [employer] Address [address] [facility] [address]t [place] [address] Care Team Providers Care Metal Flow Coordinator Name Role Phone Name, Leland MIMS Primary Care Provider [phone] Reason for Visit * Reason Comments Med Refill Encounter Details Date Type Department Care Team ([facility] st Contact Info) Description 06/20/2024 Refill [facility] [address] [place], [place] [phone] Name, MD Leland [address] [place] [address] Social History Tobacco Use Types Packs/Day Years [...] Description 08/09/2024 11:30 AM EST Telemedicine [facility] [address] [place] [phone] NameLeland MD [address] [place] [phone] 09/17/2024 10:15 AM EDT Office Visit [facility] [address] [place] [phone] NameLeland MD [address] [place] [address] documented as of this encounter Visit Diagnoses Not on filedocumented in this encounter Additional Health Concerns Assessment Noted Time PHQ-9 Depression Total Score: 0 09/14/19 24 3:10 PM EDT documented as of this encounter Care Teams Metal Flow Coordinator Relationship Specialty Start Date End Date Leland Brandon MD [address] [place] [phone] PCP - General Family Medicine 08/26/15 documented as of this encounter
--- OUTSIDE RECORDS SUMMARY | 2024-07-16 18:11 | XMS_ITS | Encounter Summary ---
Author Organization [employer] Address [address] [facility] 7t [place] [address] Care Team Providers Care Cargo Mate Name Role Phone Name, Leland MIMS Primary Care Provider [phone] Encounter Details Date Type Department Care Team (Late st Contact Info) Description 06/22/2024 3:45 PM EST Telemedicine [facility] [address] [place], [place] [phone] Chrissie Cosme NP [address] [place] [address] Chronic joint pain (Primary Dx) Social History [...] Info) Description 08/09/2024 11:30 AM EST Telemedicine [facility] [address] [place] [phone] NameLeland MD [address] [place] [address] 09/17/2024 10:15 AM EDT Office Visit [facility] [address] [place] [phone] NameLeland MD [address] [place] [phone] documented as of this encounter Visit Diagnoses Diagnosis Chronic joint pain- Primary Pain in joint, site unspecified documented in this encounter Additional Health Concerns Assessment Noted Time PHQ-9 Depression Total Score: 0 09/14/19 24 3:10 PM EDT documented as of this encounter Care Teams Cargo Mate Relationship Specialty Start Date End Date Leland Brandon MD [address] [place] [phone] PCP - General Family Medicine 08/26/15 documented as of this encounter
--- OUTSIDE RECORDS SUMMARY | 2024-07-16 18:12 | XMS_ITS | Encounter Summary ---
Author Organization [employer] Address [address] [place] [address] Care Team Providers Care Global Clinical Leader Name Role Phone Name, Leland MIMS Primary Care Provider [phone] Encounter Details Date Type Department Care Team (Late st Contact Info) Description 07/19/2023 Abstract [facility] [address] [place] [address] Name, MD Leland [address] [place], [place] [phone] Social History Tobacco Use Types Packs/Day Years [...] 08/09/2024 11:30 AM EST Telemedicine [facility] [address] [place] [address] NameLeland MD [address] [place] [phone] 09/17/2024 10:15 AM EDT Office Visit [facility] [address] [place] [phone] NameLeland MD [address] [place] [phone] documented as of this encounter Procedures Procedure [...] documented as of this encounter Care Teams Global Clinical Leader Relationship Specialty Start Date End Date NameLeland MD [address] [place] [phone] PCP - General Family Medicine 08/26/15 documented as of this encounter
--- OUTSIDE RECORDS SUMMARY | 2024-07-16 18:12 | XMS_ITS | Encounter Summary ---
Author Organization [employer] Address [address] [facility] [address] [place] [address] Care Team Providers Care Weaver Apprentice Name Role Phone NameLeland MD Primary Care Provider [phone] Reason for Referral * Imaging (Routine) - Authorized Specialty Diagnoses / Procedures Referred By Contac t Referred To Contact Radiology Diagnoses Severe low back pain Neurogenic claudication due to lumbar spinal stenosis Radicular leg pain Procedures MR Lumbar Spine w/o Contrast NameLeland MD [address] [place] [address] Phone: tel: fax: [address] Phone: tel: fax: Referral ID Status Reason Start Date Expiration Date V isits Requested Visits Authorized [id number] Authorized 07/06/2024 07/06/2025 1 1 Reason for Visit * Reason Comments Severe low back pain, problems walking Encounter Details Date Type Department Care Team (Late st Contact Info) Description 07/06/2024 9:00 AM EST Office Visit [facility] [address] [place] [address] [phone] Leland Brandon MD [address] [place] [address] [phone] Neurogenic claudication due to lumbar spinal stenosis [...] a lot of pain when he walks [place] [address] XRay Report Signed Patient: Steven Novak MR#: [id number] : 1965 Acct:[id number] Age/Sex: 59 / M ADM Date: 06/18/24 Loc: [facility] Attending Dr: Amber Ortiz MD Ordering Physician: Stacey Wade MD Date of Service: 06/18/24 Procedure(s): XR lumbar spine 2-3V Accession Number(s): [id number] cc: Stacey Wade MD; Name,Leland MIMS CLINICAL [...] Info) Description 08/09/2024 11:30 AM EST Telemedicine [address] [address] Leland Brandon MD [address] [place] [address] 09/17/2024 10:15 AM EDT Office Visit [address] [address] Leland Brandon MD [address] [place] [address] Scheduled Orders Name Type Priority Associated Diagnoses [...] documented as of this encounter Care Teams Weaver Apprentice Relationship Specialty Start Date End Date Leland Brandon MD [address] [place] [address] PCP - General Family Medicine 08/26/15 documented as of this encounter
--- OUTSIDE RECORDS SUMMARY | 2024-07-16 18:12 | XMS_ITS | Data Portability ---
Author Organization [place] [facility], [facility] Address [address] [place] [address] Care Team Providers Care Internal Controls Consultant Name Role Phone NAME, MARIO Primary Care Provider [phone] Assessment Encounter Date Assessment Date Assessment LastModified [...] consider CT temporal bone given chronic symptoms. [email or web address] Not available 11/24/2023 17:08:14 01/24/2024 01/24/2024 Patient [...] Risks and benefits of surgery discussed using spanish interpreter. Will begin the scheduling process and see him back at the time of surgery. [email or web address] Not available 01/24/2024 16:10:18 06/18/2024 06/18/2024 Patient presents postoperatively after insertion of T-tubes bilaterally 05/18. Has had a burning pain in the right ear. Physical exam reveals well placed and patent tubes without otorrhea. The skin of the right EAC is erythematous and dry though intact without edema. The conductive component of his hearing loss has resolved and he has a persistent lkpdggmt-li-rctxvd neurosensory loss. Recommend updated technology; [facility] provider list provided with medical clearance and [...] oil 0.01 % ear drops 2024 025 [facility] #[id number], [address] [place], [address], 06/18/2024 15:56:32 Patient TargetsNo targets recorded. 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 12568498 Active 2017 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, unspecif ied side; Note: Changed from M26.62 to M26.629 (01/08/20 23 2:39 PM) , Date Diagnose d: 11/17/2017 2:11 PM (M26.62) Not Available [facility] 4 02:48:26 Otalgia of left ear 4870927532 Active 2017 Otalgia, left ear; Note: Date Diagnose d: 11/17/2017 2:11 PM (H92.02) Otalgi a, left ear; Note: Date Diagnose d: 6 1:23 PM (H92.02) ; Start Date : 06/27/19 16 Not Available [facility] 4 02:48:25 Adhesive middle ear disease 5674959 Active 2013 Adhesive middle ear disease, unspecif ied as to involvem ent; Location : right CM S Risk: minimal risk CMS Treatmen t: self-cabrera ited or minor problem Conditio n: worse No te: Date Diagnose d: 4 4:36 PM (385.10) , Patient has a mild right anterior retracti on and left myringo- incudope xy Not Available [facility] 4 02:48:23 Sensorin eural hearing loss 27414989 Active 2015 Sensorin eural hearing loss, unilater al, left ear, with unrestri cted hearing on the contrala teral side; Note: Date Diagnose d: 6 3:27 PM (H90.42) Not Available [facility] 4 02:48:28 Disorder of nasal sinus 0160441 Active 2020 Other specifie d disorder s of nose and nasal sinuses; Note: Date Diagnose d: 06/08/20 21 10:31 AM (J34.89) Not Available [facility] 4 02:48:20 Disorder of the nose 08572844 Active 2020 Other specifie d disorder s of nose and nasal sinuses; Note: Date Diagnose d: 06/08/20 21 10:31 AM (J34.89) Not Available [facility] 4 02:48:21 Psoriasi s 9818400 Active 2019 Other psoriasi s; Note: Date Diagnose d: 0 11:50 AM (L40.8) Not Available [facility] 4 02:48:27 Sensorin eural hearing loss in left ear 59649710072 109 Active 2015 Sensorin eural hearing loss, unilater al, left ear, with restrict ed hearing on the contrala teral side; Note: Date Diagnose d: 06/01/20 16 2:10 PM (H90.A22 ) Not Available [facility] 4 02:48:29 Sensorin eural hearing loss of bilatera l ears 121911779 Active 2019 [facility] Bilatera lly; Note: Date Diagnose d: 4 4:08 PM (389.18) , Patient with bilatera l sensorin eural hearing loss affectin g all frequenc ie. Recommen d amplific ation, patient provided with a copy of [employer] audiogra m, medical clearanc e for hearing aids, and a list of [facility] hearing aid dispense rs. Follow up as needed ; Start Date : 03/12/20 14 Senso rineural hearing loss, bilatera l; Note: Date Diagnose d: 04/28/20 20 11:59 AM (H90.3) Sensor ineural hearing loss, bilatera l; Note: Date Diagnose d: 6 1:49 PM (H90.3) ; Start Date : 06/27/19 16 Not Available [facility] 4 02:48:24 Chronic serous otitis media of left ear 115030984 Active 2015 Chronic serous otitis media, left ear; Note: Date Diagnose d: 6 2:21 PM (H65.22) Not Available [facility] 4 02:48:28 Chronic serous otitis media 03545592 Active 2013 Chronic serous otitis media; Location [...] given severity of hearing loss Not Available [facility] 4 02:48:22 Mixed conducti ve and sensorin eural hearing loss of right ear 41187783613 105 Active 2015 Mixed conducti ve and [...] 16 2:10 PM (H90.A31 ) Not Available [facility] 4 01:08:24 Tobacco user 646541221 Completed 201701/24/2024 Tobacco use; Note: Date Diagnose d: 8 11:00 AM (Z72.0) JABARI DELVALLE MD [address] [place] [address], [place], [address] , 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 Other specifie d superfic ial mycoses; Note: Date Diagnose d: 7 1:41 PM (B36.8) Not Available [facility] 4 02:48:28 Dysfunct ion of eustachi an tube 38839617 Active 2013 Eustachi an tube dysfunct ion; Note: Date Diagnose d: 4 4:08 PM (381.81) Not Available [facility] 4 02:48:25 Otalgia 73808606 Active 2014 Otalgia; Note: Date Diagnose d: 5 2:02 PM (388.70) Not Available [facility] 4 02:48:29 Referred otalgia 12120273 Active 2019 Otalgia secondar y to TMJ; Note: Date Diagnose d: 0 2:21 PM (388.72) Not Available [facility] 4 02:48:30 Impacted cerumen 23880919 Active 2014 Impacted cerumen; [facility] Treatmen t: lupillos hed problem (to examiner ): stable or improved Note: Date Diagnose d: 5 1:42 PM (380.4) Not Available [facility] 4 02:48:23 Itching of skin 026928726 Active 2019 Other pruritus ; Note: Date Diagnose d: 0 2:25 PM (L29.8) Not Available [facility] 4 02:48:21 Impacted cerumen in right ear 03096562471 10106 Active 2016 Impacted cerumen, right ear; Note: Date Diagnose d: 7 4:26 PM (H61.21) Not Available [facility] 4 02:48:26 Impacted cerumen of bilatera l ears 77275167075 12026 Active 2016 Impacted cerumen, bilatera l; Note: Date Diagnose d: 7 1:58 PM (H61.23) Not Available [facility] 4 02:48:29 Chronic serous otitis media of right ear 626009835 Active 2015 Chronic serous otitis media, right ear; Note: Date Diagnose d: 6 3:57 PM (H65.21) Not Available [facility] 4 02:48:25 Bilatera l disorder of Eustachi an tubes 89151489426 99321 Active 2015 Other specifie d disorder s of Eustachi an tube, bilatera l; Note: Date Diagnose d: 6 2:21 PM (H69.83) Not Available [facility] 4 02:48:27 Otalgia of right ear 6853861128 Active 2017 Otalgia, right ear; Note: Date Diagnose d: 8 10:49 AM (H92.01) Otalgi a, right ear; Note: Date Diagnose d: 5 2:03 PM (H92.01) [mapped from ICD9 code: 388.70] ; Start Date : 01/03/20 15 Not Available [facility] 02:48:22 Chronic serous otitis media 92657078 Active 2023 JABARI DELVALLE MD [address] [facility],[address], [address] , [place] [facility] 16:07:04 Problem Notes None recorded. Procedures Surgical History Date Name Laterality Status Provider Name and Address Organization Details Recorded Time 06/18/19 25 Air & Speech Audio with Tymps (41551, 65120 & 84850) completed BALA WASSERMAN [address] [facility],[place] [address], [place], [address], [place] - [facility] 06/18/2024 15:27:33 05/18/20 24 MYRINGOTOMY, BILATERAL, WITH TUBE INSERTION (SURG) completed Freedom Lozano [place] [facility] 05/21/2024 11:01:39 01/24/20 24 Cerumen removal with microscope bilateral completed JABARI DELVALLE MD [address] [facility],[address], [address], [place] - [facility] [place] 01/24/2024 16:10:57 11/24/19 24 Cerumen removal without microscope bilat completed ANTHONY APONTE PA-C [address] [facility],[address], [address], [place] - [facility] 11/24/2023 17:07:33 11/24/19 24 Tympanometry (43551) completed Roxy Rico [place] [facility] [place] 11/24/2023 16:43:26 11/24/19 24 Air & Bone Audio (63162) completed Roxy Rico [place] - [facility] [place] 11/24/2023 16:45:17 Myringotomy Tube Placement completed Amber Kebede [place] [facility] [place] 01/24/2024 15:34:07 Imaging Results Imaging Date Name [...] mg tablet 2020 active Medicati on ID: 482319 B rand Name: atorvast atin Sen d Method: E-Prescr ibed Sub s Allowed: subs OK Medic ationGen ericName : atorvast atin Not Available Not Available Not Available bupropion HCl SR 150 mg tablet,12 hr sustained -release 2020 active Medicati on ID: 698902 B rand Name: bupropio n HCl Send [...] topical cream 06/08 completed Medicati on ID: 749013 B rand Name: Lotrison e Send Method: E-Prescr ibed Sub s Allowed: subs OK Speci al Instruct ion: apply to external ear tid X 2 weeks Me dication GenericN emily: Lotrison e Medica tion ID: [id number] B rand Name: Lotrison e Send Method: E-Prescr ibed Sub s Allowed: subs OK Speci al Instruct ion: apply to external ear tid X 2 weeks Me dication GenericN emily: Lotrison e Not Available Not Available Not Available clotrimaz ole-betam ethasone 1 %-0.05 % lotion 06/08 completed Medicati on ID: 301747 P rescribe d By Name: TONNY Tejeda [...] topical cream 01/23 completed Medicati on ID: 202600 B rand Name: betameth asone, augmente d Send Method: E-Prescr ibed Sub s Allowed: subs OK Medic ationGen ericName : betameth asone, augmente d Not Available Not Available Not Available Ciloxan 0.3 % eye drops 01/23 completed Medicati on ID: 439660 D uration Value: 3 Prescri bed By [...] layed release 2020 active Medicati on ID: 825441 B rand Name: aspirin Send Method: E-Prescr [...] applicato r 2020 active Medicati on ID: 768670 B rand Name: hydrocor tisone S end [...] mg capsule 2020 active Medicati on ID: 956551 B rand Name: tamsulos in Send Method: [...] right ear 01/23 completed Medicati on ID: 14379 Pr escribed By Name: TONNY Crisostomo nd Name: antipyri ne-benzo rohan Se nd Method: E-Prescr ibed Sub s Allowed: subs OK Speci al Instruct ion: as needed for discomfo rt Medic ationGen ericName : antipyri ne-benzo rohan Not Available Not Available Not Available hydrocort isone 1 % topical cream 2020 active Medicati on ID: 104707 B rand Name: hydrocor tisone S end [...] mg tablet 2020 active Medicati on ID: 696706 B rand Name: lisinopr il Send Method: E-Prescr ibed Sub s Allowed: subs OK Medic ationGen ericName : lisinopr il Not Available Not Available Not Available mometason e 0.1 % topical ointment APPLY TOPICALL Y EVERY DAY IN THE MORNING active Not Available Not Available No t Available mupirocin 2 % topical ointment 1 a small amount 2020 active Medicati on ID: 942369 D uration Value: 14 Brand Name: mupiroci [...] oral powder 2020 active Medicati on ID: 126374 B rand Name: polyethy alex glycol 3350 [...] mg tablet 2020 active Medicati on ID: 078722 B rand Name: loratadi ne Send Method: [...] topical cream 06/08 completed Medicati on ID: 436555 P [place] daniels By Name: TONNY Tejeda [...] 24 hr 2020 active Medicati on ID: 437006 B rand Name: alfuzosi n Send Method: [...] TAKE 1 TABLET BY MOUTH EVERY DAY [facility] cationGe nericNam e: duloxeti ne Not Available Not Available Not Available pregabali n 150 mg capsule 2020 active Medicati on ID: 347815 B rand Name: pregabal in Send Method: E-Prescr ibed Sub s Allowed: subs OK Medic ationGen ericName : pregabal in Not Available Not Available Not Available antipyrin e-benzoca ine 3 drop into right ear as directed 06/08 completed Medicati on ID: 11249 Br and Name: antipyri ne-benzo rohan Se [...] mg capsule 2020 active Medicati on ID: 488594 B rand Name: Fish Oil Send Method: E-Prescr ibed Sub s Allowed: subs OK Medic ationGen ericName : Fish Oil Not Available Not Available Not Available hydrochlo rothiazid e 12.5 mg tablet TAKE 1 TABLET BY MOUTH EVERY DAY IN THE MORNING active Not Available Not Available No t Available Athlete's Foot (clotrima zole) 1 % topical cream 01/23 completed Medicati on ID: 691611 D uration Value: 14 Prescri bed By [...] mg tablet 2020 active Medicati on ID: 438827 B rand Name: Eliquis Send Method: E-Prescr [...] Updated DateTime 01/24/2024 182.88 cm 38 kg/m2 708227.86 g Amber Kebede [facility] 01/24/2024 15:28:13 Date Recorded Body height Body mass index (BMI) Body weight Provider Name and Address Organization Details Last Updated DateTime 11/24/2023 182.88 cm 38 kg/m2 486759.86 g Barbie Conteh [facility] 11/24/2023 16:09:06 Social History Question Answer Notes LastModified by Organizat ion Details LastModified Time Tobacco Smoking Status Former Smoker JABARI DELVALLE MD [address] [place] [address], [address], [facility] 01/24/2024 16:04:47 When Did You Quit Smoking? 1-5yearssinc elastcigaret te [email or web address] Information not available 01/24/2024 Sex: Unknown Functional Status None recorded. Mental Status None recorded. Family History Nothing Reported. Medical History Condition Response Anxiety Y Depression Y Sleep Disorder Y Past Encounters Encounter ID Performer Location Encounter Start Date Encounter Closed Date Diagnosis/Indication Diagnosis SNOMED-CT Code Diagnosis ICD10 Code Diagnosis Note [id number] DMITRI LEE MD [facility] [address] [address] 11/24/2023 15:43:29 11/24/2023 17:00:35 Bilateral disorder of Eustachian tubes 4382394529 114950 H69.83 Impacted c erumen of bilateral ears 4551915279 420385 H61.23 Otalgia of right ear 108 7898890 H92.01 Mixed cond uctive and sensorineural hearing loss of right ear 2326334642 9105 H90.A31 Profound mixed hearing loss and a Type C tympanogra m noted in the right ear. Severe to profound sensorineu ral hearing loss and a Type B tympanogra m with large volume noted in the left ear. Sensorineu ral hearing loss in left ear 6810470246 9109 H90.A22 Acute sero us otitis media of right ear 6503872528 059708 H65.01 [id number] JABARI DELVALLE MD [facility] [address] [address] 01/24/2024 15:09:42 01/24/2024 16:10:53 Bilateral disorder of Eustachian tubes 6104553060 410547 H69.83 Chronic se emmie otitis media 85603564 H65.21 Sensorineu ral hearing loss of bilateral ears 825888414 H90.3 Impacted c erumen of bilateral ears 1845081356 821713 H61.23 [id number] MARY ELLEN SWEENEY MD [facility] [address] [address] 06/18/2024 15:02:45 06/18/2024 16:05:21 Bilateral disorder of Eustachian tubes 0985286810 144461 H69.93 Right Ear:Modera te to severe SNHL with excellent speech discrimina tion.Paten t tube.Left Ear:Modera te to severe SNHL with excellent speech discrimina tion.Paten t tube. Psoriasis 5898202 L40.9 Health Concerns Section Related Observation LastModified by Organization Detai ls LastModified Time None Recorded Concern Status LastModified by Organization Details LastModified Time None Recorded Advance Directives Directive None Recorded Payers Encounter Date Sequence Insurance Name Policy Number Policy Simon Covered Member ID Simon Member ID Guarantor Name 11/24/2023 1 [employer] - [facility] [place] (MEDICARE REPLACEMENT/ADV ANTAGE - HMO) Steven Subramanian [id number] Steven Subramanian 01/24/2024 1 [facility] - DOS ON OR AFTER 2022 - ONE [employer] (MEDICARE REPLACEMENT/ADV ANTAGE - HMO) Steven Subramanian [id number] Steven Subramanian 06/18/[address] [facility] - DOS ON OR AFTER 2022 - [employer] (MEDICARE REPLACEMENT/ADV ANTAGE - HMO) Steven Subramanian [id number] Steven Subramanian Notes Date Note Type Note [...] the ears with improvement. DMITRI LEE MD [address] [place] [address], [phone], [facility] - [facility] 11/25/2023 17:06:21 01/24/2024 text/html 58-year-old male with [...] patent. Patient has binaural amplification dispensed at [facility] audiology. JABARI DELVALLE MD [address] [facility],[address], [address], [facility] 01/24/2024 16:11:26 06/18/2024 text/html 59 year old [...] not bring them today. Got them in [place] some years ago. He does not have tinnitus. MARY ELLEN FOOTE MD [address] [place] [address],[address], [address], [facility] 06/18/2024 21:22:33
--- OUTSIDE RECORDS SUMMARY | 2024-07-16 18:12 | XMS_ITS | Clinical Summary ---
Author Organization [facility] Address [address] [place] [address] Phone Care Team Providers Care Hotel Or Motel Receptionist Name Role Phone Name, Leland MIMS Primary Care Provider [phone] Allergies No known active allergies Medications Medication [...] Visit Orthopedic Surgery [facility] [address] [facility] [address] [place] [address] Drake Norman, DPM Xerosis of [...] Recently Relevant to Health Maintenance Care Teams Hotel Or Motel Receptionist Relationship Specialty Start Date End Date Name, MD Leland [address] [place], [place] PCP - General 01/06/15
--- OUTSIDE RECORDS SUMMARY | 2024-07-16 18:12 | XMS_ITS | Encounter Summary ---
Author Organization [employer] Address [address] [facility] 7t [place] [address] Care Team Providers Care Rn Maternal Child Name Role Phone Name, Leland MIMS Primary Care Provider [phone] Reason for Visit * Reason Onset Date Comments Med Refill 07/28/2023 Encounter Details Date Type Department Care Team ([facility] st Contact Info) Description 07/28/2023 Telephone [facility] [address] [place] [address] Name, MD Leland [address] [place] [address] Med Refill Social History Tobacco Use Types [...] Vogt LPN - 07/28/2023 11:52 AM EST [employer]RE [employer]ER checked 07/28/23 last filled on 06/17/23 refill 2/3 patient should have 1 refill left. * Telephone Encounter - Hailee Louie - 07/28/2023 11:08 AM EST TC from pt requesting medication refill. Medications needing refill : gabapentin (Neurontin) 800 MG tablet To be sent to: [facility] - [place], [place] - [address] [place] [address] documented in this encounter Plan of Treatment Upcoming Encounters Date Type Department Care Team (Late st Contact Info) Description 08/09/2024 11:30 AM EST Telemedicine [facility] [address] [place] [address] Name, MD Leland [address] [place] [address] 09/17/2024 10:15 AM EDT Office Visit [facility] [address] [place] [address] Name, MD Leland [address] [place] [address] documented as of this encounter Visit Diagnoses Not on filedocumented in this encounter Additional Health Concerns Assessment Noted Time PHQ-9 Depression Total Score: 0 09/07/19 23 1:16 PM EDT documented as of this encounter Care Teams Rn Maternal Child Relationship Specialty Start Date End Date Name, MD Leland [address] [place] [address] PCP - General Family Medicine 08/26/15 documented as of this encounter
--- OUTSIDE RECORDS SUMMARY | 2024-07-16 18:12 | XMS_ITS | Encounter Summary ---
Author Organization [employer] Address [address] [facility] [address] 7t [place] [address] Care Team Providers Care Transport Analyst Name Role Phone Name, Leland MIMS Primary Care Provider [phone] Encounter Details Date Type Department Care Team ([facility] st Contact Info) Description 03/24/2023 Telephone [facility] 230 [place], [place] [phone] Name, MD Leland 230 [place], [place] [phone] Social History Tobacco Use Types Packs/Day Years [...] advise PCP pt is currently admitted to [facility] and was found with blood clots to both legs. Any questions, contact pt at [phone] documented in this encounter Plan of Treatment Upcoming Encounters Date Type Department Care Team (Late st Contact Info) Description 08/09/2024 11:30 AM EST Telemedicine [facility] [address] [place] [address] Name, MD Leland [address] [place] [address] 09/17/2024 10:15 AM EDT Office Visit [facility] [address] [place] [address] Name, MD Leland [address] [place] [address] documented as of this encounter Visit Diagnoses Not on filedocumented in this encounter Additional Health Concerns Assessment Noted Time PHQ-9 Depression Total Score: 0 09/07/19 23 1:16 PM EDT documented as of this encounter Care Teams Transport Analyst Relationship Specialty Start Date End Date NameLeland MD [address] [place] [address] PCP - General Family Medicine 08/26/15 documented as of this encounter
--- OUTSIDE RECORDS SUMMARY | 2024-07-16 18:12 | XMS_ITS | Encounter Summary ---
Author Organization [employer] Address [address] 7t [place] [address] Care Team Providers Care Granite Polisher Name Role Phone Name, Leland MIMS Primary Care Provider [phone] Reason for Visit * Reason Comments Leg Pain Encounter Details Date Type Department Care Team ([facility] st Contact Info) Description 07/14/2024 12:00 PM EST Office Visit [facility] [address] [place] [address] [phone] Name, MD Leland [address] [place] [address]18 Severe low back pain (Primary Dx); Neurogenic claudication due to lumbar spinal stenosis Social History Tobacco Use Types Packs/Day Years [...] Sign Reading Time Taken Comments Blood Pressure 140/71 07/14/2024 11:39 AM EST Pulse 88 07/14/2024 11:39 AM EST Temperature 36.5 ??C (97.7 ??F) 07/14/2024 11:[address] Respiratory Rate 18 07/14/2024 11:39 AM EST Oxygen Saturation 98% 07/14/2024 11:39 AM EST Inhaled Oxygen Concentration - - Weight 135 kg (297 lb 12.8 oz) 07/14/2024 11:39 AM EST Height - - Body Mass Index 40.39 07/06/2024 10:39 AM EST documented in this encounter Progress Notes * Leland Brandon MD - 07/14/2024 12:00 PM EST Subjective Patient ID: Steven Singh is a 59 y.o. male who presents for Leg Pain. Patient comes to walk in for pain on the low back with radiation to the legs This is a chronic problem for him and I saw him a few weeks back for the same He responded to use of prednisone with some improvement of the pain but ran out and asked for refill. 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 HENT: Negative for sore throat. Respiratory: Negative for cough, chest tightness and shortness of breath. Cardiovascular: Negative for chest pain, palpitations and leg swelling. Gastrointestinal: Negative for abdominal pain and blood in stool. Musculoskeletal: Positive for back pain. Visit Vitals BP 140/71 Pulse 88 Temp 97.7 ??F (36.5 ??C) (Temporal) Resp 18 Wt 297 lb 12.8 oz (135 kg) SpO2 98% BMI 40.39 kg/m?? Smoking Status Former BSA 2.62 m?? Objective Physical Exam Constitutional: General: He [...] a lot of pain when he walks Assessment/Plan Diagnoses and all orders for this visit: Severe low back pain Comments: I prescribed a short course of decadron. He is asked to keep upcoming appt for MRI of the LS, further recommendation based on the results. Neurogenic claudication due to lumbar spinal stenosis Other orders - dexAMETHasone (Decadron) 4 MG tablet; Take 1 tablet (4 mg) by mouth with breakfast and with evening meal for 7 days. documented in this encounter Plan of Treatment Upcoming Encounters Date Type Department Care Team (Late st Contact Info) Description 08/09/2024 11:30 AM EST Telemedicine [facility] [address] [place] [address] Name, MD Leland 230 [place] [address] 09/17/2024 10:15 AM EDT Office Visit [facility] [address] [facility] [place] [address] Name, MD Leland [address] [facility] [place] [address] documented as of this encounter Visit Diagnoses Diagnosis Severe low back pain- Primary Lumbago Neurogenic claudication due to lumbar spinal stenosis Spinal stenosis of lumbar region documented in this encounter Additional Health Concerns Assessment Noted Time PHQ-9 Depression Total Score: 0 09/14/19 24 3:10 PM EDT documented as of this encounter Care Teams Granite Polisher Relationship Specialty Start Date End Date Name, MD Leland [address] [facility] [place] [address] PCP - General Family Medicine 08/26/15 documented as of this encounter
--- OUTSIDE RECORDS SUMMARY | 2024-07-16 18:12 | XMS_ITS | Encounter Summary ---
Author Organization [employer] [facility] Address 75 [facility] 7t [place] [address] Care Team Providers Care Butt Welder Name Role Phone Name, Leland MIMS Primary Care Provider Reason for Visit * Reason Comments Med Refill Encounter Details Date Type Department Care Team ([facility] [address] Contact Info) Description 02/21/2023 Refill [facility] [address] [place] [address] [phone] Name, MD Leland [address] [place] [address] Insomnia, unspecified type Social History Tobacco Use [...] Upcoming Encounters Date Type Department Care Team ([facility] [address] Contact Info) Description 08/09/2024 11:30 AM EST Telemedicine [facility] [address] [place] [address] [phone] Name, MD Leland [address] [place] [address] [phone] 09/17/2024 10:15 AM EDT Office Visit [facility] 230 [place] [address] Name, MD Leland 230 [place] [address] documented as of this encounter Visit Diagnoses Diagnosis Insomnia, unspecified type documented in this encounter Additional Health Concerns Assessment Noted Time PHQ-9 Depression Total Score: 0 09/07/19 23 1:16 PM EDT documented as of this encounter Care Teams Butt Welder Relationship Specialty Start Date End Date Name, MD Leland 230 [place] [address] PCP - General Family Medicine 08/26/15 documented as of this encounter
--- OUTSIDE RECORDS SUMMARY | 2024-07-16 18:12 | XMS_ITS | Encounter Summary ---
Author Organization [employer] Address 75 [facility] 7t [place] [address] Care Team Providers Care Operator Coating Furnace Name Role Phone Name, Leland MIMS Primary Care Provider [phone] Reason for Visit * Reason Onset Date Comments Med Refill 01/02/2024 Encounter Details Date Type Department Care Team ([facility] st Contact Info) Description 01/02/2024 Telephone [facility] 230 [place] [address] Name, MD Leland 230 [place] [address] Med Refill Social History Tobacco Use Types [...] 10 MG tablet To be sent to: [facility] [place], [place] - [address] [place] [address] documented in this encounter Plan of Treatment Upcoming Encounters Date Type Department Care Team ([facility] st Contact Info) Description 08/09/2024 11:30 AM EST Telemedicine [facility] [address] [place] [address] Name, MD Leland [address] [place] [address] 09/17/2024 10:15 AM EDT Office Visit [facility] 230 [place] [address] Name, MD Leland [address] [place] [address] documented as of this encounter Visit Diagnoses Not on filedocumented in this encounter Additional Health Concerns Assessment Noted Time PHQ-9 Depression Total Score: 0 09/14/19 24 3:10 PM EDT documented as of this encounter Care Teams Operator Coating Furnace Relationship Specialty Start Date End Date Name, MD Leland 230 [place] [address] PCP - General Family Medicine 08/26/15 documented as of this encounter
--- OUTSIDE RECORDS SUMMARY | 2024-07-16 18:12 | XMS_ITS | Encounter Summary ---
Author Organization [employer] Address [address] [facility] [address] 7t [place] [address] Care Team Providers Care Licsw Name Role Phone Name, Leland MIMS Primary Care Provider [phone] Reason for Visit * Reason Comments Med Refill Encounter Details Date Type Department Care Team ([facility] st Contact Info) Description 09/23/2023 Refill [facility] 230 [place] [address] Ila Lora MD 505 [place] [address] Social History Tobacco Use Types Packs/Day Years [...] Description 08/09/2024 11:30 AM EST Telemedicine [facility] [address] [place] [address] NameLeland MD [address] [place] [address] 09/17/2024 10:15 AM EDT Office Visit [facility] [address] [place] [address] NameLeland MD [address] [place] [address] 9[address] documented as of this encounter Visit Diagnoses Not on filedocumented in this encounter Additional Health Concerns Assessment Noted Time PHQ-9 Depression Total Score: 0 09/14/19 24 3:10 PM EDT documented as of this encounter Care Teams Licsw Relationship Specialty Start Date End Date NameLeland MD [address] [place] [address] PCP - General Family Medicine 08/26/15 documented as of this encounter
--- OUTSIDE RECORDS SUMMARY | 2024-07-16 18:12 | XMS_ITS | Encounter Summary ---
Author Organization [employer] Address [address] 7t [place] [address] Care Team Providers Care Forest Management Professor Name Role Phone Name, Leland MIMS Primary Care Provider [phone] Reason for Visit * Reason Onset Date Comments Results 06/25/2024 Encounter Details Date Type Department Care Team ([facility] st Contact Info) Description 06/25/2024 Telephone [facility] 230 [place] [address] Keila Rojas RN Results Social History Tobacco [...] 7:43 PM EST TC to pt using [employer] 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 Pt describes a shooting pain in his legs that feel worse . He is requesting refills on the 2 Rx prescribed at 06/15/24 visit: RobaxinRobaxin) 750 MG tablet [[id number]] Dose: 750 mg Route: OralFrequency: 4 times daily Dispense Quantity: 40 tablet Refills: 0 Sig: Take 1 tablet (750 mg) by mouth 4 times daily for 10 days. Start Date: 06/15/24 End Date: 06/25/24 after Decadron 4 mg BID with meals x 7 days which helped Decadron) 4 MG tablet [[id number]] Order Details Dose: 4 mgRoute: Oral Frequency: [...] Info) Description 08/09/2024 11:30 AM EST Telemedicine [facility] [address] [place] [address] Name, MD Leland [address] [place] [address] 314[address] 09/17/2024 10:15 AM EDT Office Visit [address] [address] Name, MD Leland [address] [place] [address] documented as of this encounter Visit Diagnoses Not on filedocumented in this encounter Additional Health Concerns Assessment Noted Time PHQ-9 Depression Total Score: 0 09/14/19 24 3:10 PM EDT documented as of this encounter Care Teams Forest Management Professor Relationship Specialty Start Date End Date Leland Brandon MD [address] [place] [address] PCP - General Family Medicine 08/26/15 documented as of this encounter
--- OUTSIDE RECORDS SUMMARY | 2024-07-16 18:12 | XMS_ITS | Encounter Summary ---
Author Organization [employer] Address 75 [facility] 7t [place] [address] Care Team Providers Care Hybrid Corn Breeder Name Role Phone Name, Leland MIMS Primary Care Provider [phone] Reason for Visit * Reason Onset Date Comments Referral 07/20/2022 Encounter Details Date Type Department Care Team ([facility] st Contact Info) Description 07/20/2022 Telephone [facility] 230 [place], [place] [phone] Name, MD Leland 230 [place] [address] Referral Social History Tobacco Use Types Packs/Day [...] Podiatry for new or existing referrals for [facility], [address], [place] [address], Phone #: [phone], Reason for referral is Chronic Severe pain left foot. Marva advised pt has an X-ray done and patient does have the symptom of Chronic pain. Advised Marva with [facility] will forward to team nurse for new referral and maintenance specialist for existing referral. Please call Marva at [phone] documented in this encounter Plan of Treatment Upcoming Encounters Date Type Department Care Team (Late st Contact Info) Description 08/09/2024 11:30 AM EST Telemedicine [facility] [address] [place] [address] Name, MD Leland [address] [place] [address] 09/17/2024 10:15 AM EDT Office Visit [facility] [address] [place] [address] 99696 Name, MD Leland [address] [place] [address] documented as of this encounter Visit Diagnoses Not on filedocumented in this encounter Care Teams Hybrid Corn Breeder Relationship Specialty Start Date End Date Name, MD Leland [address] [place] [address] PCP - General Family Medicine 08/26/15 documented as of this encounter
--- OUTSIDE RECORDS SUMMARY | 2024-07-16 18:12 | XMS_ITS | Encounter Summary ---
Author Organization [employer] Address [address] [facility] [address] 7t [place] [address] Care Team Providers Care Metrology Manager Name Role Phone Name, Leland MIMS Primary Care Provider Encounter Details Date Type Department Care Team (Latest Contact Info) Description 07/14/2024 Travel Social History Tobacco Use Types Packs/Day [...] your housing situation today? I have andrew amchuca 09/06/[address] you li [...] Description 08/09/2024 11:30 AM EST Telemedicine [facility] [address] [place] [address] NameLeland MD [address] [place] [address] 09/17/2024 10:15 AM EDT Office Visit [facility] [address] [place] [address] 25746 Name, MD Leland [address] [place] [address] 9[address] documented as of this encounter Visit Diagnoses Not on filedocumented in this encounter Additional Health Concerns Assessment Noted Time PHQ-9 Depression Total Score: 0 09/14/19 24 3:10 PM EDT documented as of this encounter Care Teams Metrology Manager Relationship Specialty Start Date End Date NameLeland MD [address] [place] [address] PCP - General Family Medicine 08/26/15 documented as of this encounter
--- OUTSIDE RECORDS SUMMARY | 2024-07-16 18:12 | XMS_ITS | Encounter Summary ---
Author Organization [employer] [facility] Address [address] [facility] 7t [place] [address] Care Team Providers Care Quality Control Lab Tech Name Role Phone Name, Leland MIMS Primary Care Provider [phone] Reason for Visit * Reason Comments Med Refill Encounter Details Date Type Department Care Team ([facility] Contact Info) Description 10/22/2022 Refill [facility] [address] [place] [address] [phone] Name, MD Leland [address] [place] [address] Insomnia, unspecified type Social History Tobacco Use [...] Upcoming Encounters Date Type Department Care Team ([facility] Contact Info) Description 08/09/2024 11:30 AM EST Telemedicine [facility] 230 [facility] [place] [place] [address] Name, MD Leland [place] [facility] [address] 09/17/2024 10:15 AM EDT Office Visit [facility] [place] [facility] [place] [address] Name, [place] [address] documented as of this encounter Visit Diagnoses Diagnosis Insomnia, unspecified type documented in this encounter Additional Health Concerns Assessment Noted Time PHQ-9 Depression Total Score: 0 09/07/19 23 1:16 PM EDT documented as of this encounter Care Teams Quality Control Lab Tech Relationship Specialty Start Date End [place] [address] PCP - General Family Medicine 08/26/15 documented as of this encounter
--- OUTSIDE RECORDS SUMMARY | 2024-07-16 18:12 | XMS_ITS | Encounter Summary ---
Author Organization [employer] Address [address] [facility] 7t [place] [address] Care Team Providers Care Risk Engineer Name Role Phone Name, Leland MIMS Primary Care Provider [phone] Encounter Details Date Type Department Care Team ([facility] Contact Info) Description 11/22/[address] [phone] Name, MD Leland [address] [place] [address] Social History Tobacco Use Types Packs/Day Years [...] Upcoming Encounters Date Type Department Care Team ([facility] Contact Info) Description 08/09/2024 11:30 AM EST Telemedicine [facility] [address] [place] [address] Name, MD Leland [facility] [address] 09/17/2024 10:15 AM EDT Office Visit [facility] 230 [facility] [place] [address] Name, [place] [address] documented as of this encounter Visit Diagnoses Not on filedocumented in this encounter Additional Health Concerns Assessment Noted Time PHQ-9 Depression Total Score: 0 09/07/19 23 1:16 PM EDT documented as of this encounter Care Teams Risk Engineer Relationship Specialty Start Date End Date NameLeland MD [place] [facility] [place] [address] PCP - General Family Medicine 08/26/15 documented as of this encounter
--- OUTSIDE RECORDS SUMMARY | 2024-07-16 18:12 | XMS_ITS | Encounter Summary ---
Author Organization [employer] Address 75 [facility] 7t [place] [address] Care Team Providers Care Travel Clerk Name Role Phone Name, Leland MIMS Primary Care Provider [phone] Reason for Visit * Reason Onset Date Comments Medication Question 03/10/2023 Encounter Details Date Type Department Care Team ([facility] st Contact Info) Description 03/10/2023 Telephone [facility] 230 [place] [address] Name, MD Leland 230 [place] [address] Medication Question Social History Tobacco Use Types [...] T?C to pt. For below message through [employer] id - [id number] for below message, pt. Verbally agreed and understood. * Telephone Encounter - Michael Yu - 03/10/2023 10:03 AM EDT Tc from pt stating insurance will not cover for script guaiFENesin (Robitussin) 100 MG/5ML liquid & pseudoephedrine (Sudafed) 30 MG tablet, pt was seen on 03/09/23 with PCP for COVID . Pt would like to know if PCP can send a alternative script. Academic Affairs Vice President also confirmed with pharmacy. Please contact at [phone] Yi documented in this encounter Plan of Treatment Upcoming Encounters Date Type Department Care Team (Late st Contact Info) Description 08/09/2024 11:30 AM EST Telemedicine [facility] [address] [place] [address] Name, [place] [address] 09/17/2024 10:15 AM EDT Office Visit [facility] [address] [place] [address] Name, [place] [address] documented as of this encounter Visit Diagnoses Not on filedocumented in this encounter Additional Health Concerns Assessment Noted Time PHQ-9 Depression Total Score: 0 09/07/19 23 1:16 PM EDT documented as of this encounter Care Teams Travel Clerk Relationship Specialty Start Date End Date NameLeland MD [address] [place] [address] PCP - General Family Medicine 08/26/15 documented as of this encounter
--- OUTSIDE RECORDS SUMMARY | 2024-07-16 18:12 | XMS_ITS | Encounter Summary ---
Author Organization [employer] Address 75 [facility] 7t [place] [address] Care Team Providers Care Psychology Fellow Name Role Phone Name, Leland MIMS Primary Care Provider [phone] Reason for Visit * Reason Comments Med Refill Encounter Details Date Type Department Care Team ([facility] st Contact Info) Description 06/20/2023 Refill [facility] 230 [place], [place] [phone] Name, MD Leland 230 [place] [address] Insomnia, unspecified type Social History Tobacco Use [...] Info) Description 08/09/2024 11:30 AM EST Telemedicine [facility] [address] [place] [address] NameLeland MD [address] [place] [address] 09/17/2024 10:15 AM EDT Office Visit [address] [address] NameLeland MD [address] [place] [address] documented as of this encounter Visit Diagnoses Diagnosis Insomnia, unspecified type documented in this encounter Additional Health Concerns Assessment Noted Time PHQ-9 Depression Total Score: 0 09/07/19 23 1:16 PM EDT documented as of this encounter Care Teams Psychology Fellow Relationship Specialty Start Date End Date Leland Brandon MD [address] [place] [address] PCP - General Family Medicine 08/26/15 documented as of this encounter
--- OUTSIDE RECORDS SUMMARY | 2024-07-16 18:12 | XMS_ITS | Encounter Summary ---
Author Organization [employer] Address [address] [facility] [address] 7t [place] [address] Care Team Providers Care Transportation Design Engineer Name Role Phone Name, Leland MIMS Primary Care Provider [phone] Encounter Details Date Type Department Care Team [...] Info) Description 08/09/2024 11:30 AM EST Telemedicine [facility] [address] [place] [address] NameLeland MD [address] [place] [address] 09/17/2024 10:15 AM EDT Office Visit [facility] [address] [place] [address] Name, MD Leland [address] [place] [address] documented as of this encounter Visit Diagnoses Not on filedocumented in this encounter Additional Health Concerns Assessment Noted Time PHQ-9 Depression Total Score: 0 09/14/19 24 3:10 PM EDT documented as of this encounter Care Teams Transportation Design Engineer Relationship Specialty Start Date End Date NameLeland MD [address] [place] [address] PCP - General Family Medicine 08/26/15 documented as of this encounter
--- OUTSIDE RECORDS SUMMARY | 2024-07-16 18:12 | XMS_ITS | Continuity of Care Document ---
Author Organization [place] [facility], [facility] Address [address] [place] [address] Care Team Providers Care Pulmonary Disease Specialist Name Role Phone NAME, MARIO Primary Care Provider [phone] Assessment Encounter Date Assessment Date Assessment LastModified [...] has resolved and he has a persistent ykxuhdrp-ro-xtumrj neurosensory loss. Recommend updated technology; [facility] provider list provided with medical clearance and [...] oil 0.01 % ear drops 2024 025 [facility] #[id number], [address] [place], [address], 06/18/2024 15:56:32 Patient TargetsNo targets recorded. 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 56241247 Active 2017 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, unspecif ied side; Note: Changed from M26.62 to M26.629 (01/08/20 23 2:39 PM) , Date Diagnose d: 11/17/2017 2:11 PM (M26.62) Not Available [facility] 4 02:48:26 Otalgia of left ear 9602472431 Active 2017 Otalgia, left ear; Note: Date Diagnose d: 11/17/2017 2:11 PM (H92.02) Otalgi a, left ear; Note: Date Diagnose d: 6 1:23 PM (H92.02) ; Start Date : 06/27/19 16 Not Available [facility] 4 02:48:25 Adhesive middle ear disease 8109163 Active 2013 Adhesive middle ear disease, unspecif ied as to involvem ent; Location : right CM S Risk: minimal risk CMS Treatmen t: self-cabrera ited or minor problem Conditio n: worse No te: Date Diagnose d: 4 4:36 PM (385.10) , Patient has a mild right anterior retracti on and left myringo- incudope xy Not Available [facility] 4 02:48:23 Sensorin eural hearing loss 98731255 Active 2015 Sensorin eural hearing loss, unilater al, left ear, with unrestri cted hearing on the contrala teral side; Note: Date Diagnose d: 6 3:27 PM (H90.42) Not Available [facility] 4 02:48:28 Disorder of nasal sinus 5506228 Active 2020 Other specifie d disorder s of nose and nasal sinuses; Note: Date Diagnose d: 06/08/20 21 10:31 AM (J34.89) Not Available [facility] 4 02:48:20 Disorder of the nose 07068972 Active 2020 Other specifie d disorder s of nose and nasal sinuses; Note: Date Diagnose d: 06/08/20 21 10:31 AM (J34.89) Not Available [facility] 4 02:48:21 Psoriasi s 5083422 Active 2019 Other psoriasi s; Note: Date Diagnose d: 0 11:50 AM (L40.8) Not Available [facility] 4 02:48:27 Sensorin eural hearing loss in left ear 30674806549 109 Active 2015 Sensorin eural hearing loss, unilater al, left ear, with restrict ed hearing on the contrala teral side; Note: Date Diagnose d: 06/01/20 16 2:10 PM (H90.A22 ) Not Available [facility] 4 02:48:29 Sensorin eural hearing loss of bilatera l ears 268439301 Active 2019 SNHL Bilatera lly; Note: Date Diagnose d: 4 4:08 PM (389.18) , Patient with bilatera l sensorin eural hearing loss affectin g all frequenc ie. Recommen d amplific ation, patient provided with a copy of todays audiogra m, medical clearanc e for hearing aids, and a list of [facility] hearing aid dispense rs. Follow up as needed ; Start Date : 03/12/20 14 Senso rineural hearing loss, bilatera l; Note: Date Diagnose d: 04/28/20 20 11:59 AM (H90.3) Sensor ineural hearing loss, bilatera l; Note: Date Diagnose d: 6 1:49 PM (H90.3) ; Start Date : 06/27/19 16 Not Available [facility] 4 02:48:24 Chronic serous otitis media of left ear 585189391 Active 2015 Chronic serous otitis media, left ear; Note: Date Diagnose d: 6 2:21 PM (H65.22) Not Available [facility] 4 02:48:28 Chronic serous otitis media 51974553 Active 2013 Chronic serous otitis media; Location : right CM S Risk: minimal risk [facility] Treatmen t: self-cabrera ited or minor problem Conditio n: worse No te: Date Diagnose d: 4 4:36 PM (381.10) , Patient has right sided middle ear effusion . Patient also examined by Dr Delvalle who would not recommen d myringot elian with tube as patient would still require amplific ation despite procedur e given severity of hearing loss Not Available [facility] 4 02:48:22 Mixed conducti ve and sensorin eural hearing loss of right ear 25712910286 105 Active 2015 Mixed conducti ve and [...] 16 2:10 PM (H90.A31 ) Not Available [facility] 4 01:08:24 Tobacco user 346624866 Completed 201701/24/2024 Tobacco use; Note: Date Diagnose d: 8 11:00 AM (Z72.0) JABARI DELVALLE MD [address] [place] [address], [facility] [place], [address] , [facility] 4 16:10:42 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 Other specifie d superfic ial mycoses; Note: Date Diagnose d: 7 1:41 PM (B36.8) Not Available [facility] 4 02:48:28 Dysfunct ion of eustachi an tube 83662415 Active 2013 Eustachi an tube dysfunct ion; Note: Date Diagnose d: 4 4:08 PM (381.81) Not Available [facility] 4 02:48:25 Otalgia 29977816 Active 2014 Otalgia; Note: Date Diagnose d: 5 2:02 PM (388.70) Not Available [facility] 4 02:48:29 Referred otalgia 40496581 Active 2019 Otalgia secondar y to TMJ; Note: Date Diagnose d: 0 2:21 PM (388.72) Not Available [facility] 4 02:48:30 Impacted cerumen 52876911 Active 2014 Impacted cerumen; [facility] Treatmen t: establis hed problem (to examiner ): stable or improved Note: Date Diagnose d: 5 1:42 PM (380.4) Not Available [facility] 4 02:48:23 Itching of skin 504476338 Active 2019 Other pruritus ; Note: Date Diagnose d: 0 2:25 PM (L29.8) Not Available [facility] 4 02:48:21 Impacted cerumen in right ear 50418853121 27351 Active 2016 Impacted cerumen, right ear; Note: Date Diagnose d: 7 4:26 PM (H61.21) Not Available [facility] 4 02:48:26 Impacted cerumen of bilatera l ears 77216706402 04889 Active 2016 Impacted cerumen, bilatera l; Note: Date Diagnose d: 7 1:58 PM (H61.23) Not Available [facility] 4 02:48:29 Chronic serous otitis media of right ear 621137561 Active 2015 Chronic serous otitis media, right ear; Note: Date Diagnose d: 6 3:57 PM (H65.21) Not Available [facility] 4 02:48:25 Bilatera l disorder of Eustachi an tubes 86177216645 40758 Active 2015 Other specifie d disorder s of Eustachi an tube, bilatera l; Note: Date Diagnose d: 6 2:21 PM (H69.83) Not Available [facility] 4 02:48:27 Otalgia of right ear 4920470377 Active 2017 Otalgia, right ear; Note: Date Diagnose d: 8 10:49 AM (H92.01) Otalgi a, right ear; Note: Date Diagnose d: 5 2:03 PM (H92.01) [mapped from ICD9 code: 388.70] ; Start Date : 01/03/20 15 Not Available [facility] 4 02:48:22 Chronic serous otitis media 72984938 Active 2023 JABARI DELVALLE MD [address] [place] [address], [place], [address] , [facility] - [facility] 4 16:07:04 Problem Notes None recorded. Procedures Surgical History Date Name Laterality Status Provider Name and Address Organization Details Recorded Time 06/18/19 25 Air & Speech Audio with Tymps (09244, 98917 & 81230) completed BALA WASSERMAN [address] [facility],[place] [address], [place], [address], [facility] - [facility] 06/18/2024 15:27:33 05/18/20 24 MYRINGOTOMY, BILATERAL, WITH TUBE INSERTION (SURG) completed Freedom Lozano [place] [facility] 05/21/2024 11:01:39 01/24/20 24 Cerumen removal with microscope bilateral completed JABARI DELVALLE MD [address] [facility],[place] [address], [place], [address], [facility] - [facility] 01/24/2024 16:10:57 11/24/19 24 Cerumen removal without microscope bilat completed ANTHONY APONTE PA-C [address] [facility],[place] [address], [place], [address], [facility] - [facility] 11/24/2023 17:07:33 11/24/19 24 Tympanometry (83522) completed Roxy Rico [place] [facility] 11/24/2023 16:43:26 11/24/19 24 Air & Bone Audio (19563) completed Roxy Rico [place] [facility] 11/24/2023 16:45:17 Myringotomy Tube Placement completed Amber Kebede [facility] 01/24/2024 15:34:07 Imaging Results None recorded. Procedure [...] mg tablet 2020 active Medicati on ID: 660655 B rand Name: atorvast atin Toan d Method: E-Prescr ibed Sub s Allowed: subs OK Medic ationGen ericName : atorvast atin Not Available Not Available Not Available bupropion HCl SR 150 mg tablet,12 hr sustained -release 2020 active Medicati on ID: 423725 B rand Name: bupropio n HCl Send [...] topical cream 06/08 completed Medicati on ID: 760749 B rand Name: Lotrison e Send Method: E-Prescr ibed Sub s Allowed: subs OK Speci al Instruct ion: apply to external ear tid X 2 weeks Me dication GenericN emily: Lotrison e Medica tion ID: [id number] B rand Name: Lotrison e Send Method: E-Prescr ibed Sub s Allowed: subs OK Speci al Instruct ion: apply to external ear tid X 2 weeks Me dication GenericN emily: Lotrison e Not Available Not Available Not Available clotrimaz ole-betam ethasone 1 %-0.05 % lotion 06/08 completed Medicati on ID: 398475 P rescribe d By Name: TONNY Tejeda [...] topical cream 01/23 completed Medicati on ID: 000409 B rand Name: betameth asone, augmente d Send Method: E-Prescr ibed Sub s Allowed: subs OK Medic ationGen ericName : betameth asone, augmente d Not Available Not Available Not Available Ciloxan 0.3 % eye drops 01/23 completed Medicati on ID: 718658 D uration Value: 3 Prescri bed By [...] layed release 2020 active Medicati on ID: 795737 B rand Name: aspirin Send Method: E-Prescr [...] applicato r 2020 active Medicati on ID: 986758 B rand Name: hydrocor tisone S end [...] mg capsule 2020 active Medicati on ID: 228501 B rand Name: tamsulos in Send Method: [...] right ear 01/23 completed Medicati on ID: 90944 Pr escribed By Name: TONNY Crisostomo nd Name: antipyri ne-benzo rohan Se nd Method: E-Prescr ibed Sub s Allowed: subs OK Speci al Instruct ion: as needed for discomfo rt Medic ationGen ericName : antipyri ne-benzo rohan Not Available Not Available Not Available hydrocort isone 1 % topical cream 2020 active Medicati on ID: 605113 B rand Name: hydrocor tisone S end [...] mg tablet 2020 active Medicati on ID: 591288 B rand Name: lisinopr il Send Method: E-Prescr ibed Sub s Allowed: subs OK Medic ationGen ericName : lisinopr il Not Available Not Available Not Available mometason e 0.1 % topical ointment APPLY TOPICALL Y EVERY DAY IN THE MORNING active Not Available Not Available No t Available mupirocin 2 % topical ointment 1 a small amount 2020 active Medicati on ID: 815638 D uration Value: 14 Brand Name: mupiroci [...] oral powder 2020 active Medicati on ID: 470901 B rand Name: polyethy alex glycol 3350 [...] mg tablet 2020 active Medicati on ID: 473455 B rand Name: carlotta francois Send Method: [...] topical cream 06/08 completed Medicati on ID: 688728 Dariana daniels By Name: TONNY Tejeda nd [...] 24 hr 2020 active Medicati on ID: 201553 B rand Name: alfuzosi n Send Method: [...] mg capsule 2020 active Medicati on ID: 867894 B rand Name: pregabal in Send Method: E-Prescr ibed Sub s Allowed: subs OK Medic ationGen ericName : pregabal in Not Available Not Available Not Available antipyrin e-benzoca ine 3 drop into right ear as directed 06/08 completed Medicati on ID: 94071 Br and Name: antipyri ne-benzo rohan Se [...] mg capsule 2020 active Medicati on ID: 722596 B rand Name: Fish Oil Send Method: E-Prescr ibed Sub s Allowed: subs OK Medic ationGen ericName : Fish Oil Not Available Not Available Not Available hydrochlo rothiazid e 12.5 mg tablet TAKE 1 TABLET BY MOUTH EVERY DAY IN THE MORNING active Not Available Not Available No t Available Athlete's Foot (clotrima zole) 1 % topical cream 01/23 completed Medicati on ID: 184362 D uration Value: 14 Prescri bed By [...] mg tablet 2020 active Medicati on ID: 880257 B rand Name: Eliquis Send Method: E-Prescr [...] Smoking Status Former Smoker JABARI DELVALLE MD [address] [place] [address], [place], [address], [facility] - [facility] 01/24/2024 16:04:47 When Did You Quit Smoking? 1-5yearssinc elastcigaret te [id number] Information not available 01/24/2024 Sex: Unknown Functional Status None recorded. Mental Status None recorded. Family History Nothing Reported. Medical History Condition Response Anxiety Y Depression Y Sleep Disorder Y Past Encounters Encounter ID Performer Location Encounter Start Date Encounter Closed Date Diagnosis/Indication Diagnosis SNOMED-CT Code Diagnosis ICD10 Code Diagnosis Note [id number] MARY ELLEN SWEENEY MD [facility] [address] [phone] 06/18/2024 15:02:45 06/18/2024 16:05:21 Bilateral disorder of Eustachian tubes [id number] 025952 H69.93 Right Ear:Modera te to severe SNHL with excellent speech discrimina tion.Paten t tube.Left Ear:Modera te to severe SNHL with excellent speech discrimina tion.Paten t tube. Psoriasis 9317818 L40.9 Health Concerns Section Related Observation LastModified by Organization Detai ls LastModified Time None Recorded Concern Status LastModified by Organization Details LastModified Time None Recorded Payers Encounter Date Sequence Insurance Name Policy Number Policy Simon Covered Member ID Simon Member ID Guarantor Name 06/18/2024 1 [facility] - DOS ON OR AFTER 2022 - ONE CARE (MEDICARE REPLACEMENT/ADV ANTAGE - HMO) Steven Subramanian [id number] Steven Subramanian Notes Date Note Type Note [...] not bring them today. Got them in [place] some years ago. He does not have tinnitus. MARY ELLEN FOOTE MD [address] [place] [address], [place], [address], [facility] - [facility] 06/18/2024 21:22:33
--- OUTSIDE RECORDS SUMMARY | 2024-07-16 18:13 | XMS_ITS | Encounter Summary ---
Author Organization [employer] Address [address] [place] [address] Care Team Providers Care Step Down Nurse Name Role Phone Name, Leland MIMS Primary Care Provider [phone] Encounter Details Date Type Department Care Team [...] Info) Description 08/09/2024 11:30 AM EST Telemedicine [facility] [address] [place] [phone] NameLeland MD [address] [place] [phone] 09/17/2024 10:15 AM EDT Office Visit [facility] [address] [place] [address] Name, MD Leland [address] [place] [address] documented as of this encounter Visit Diagnoses Not on filedocumented in this encounter Additional Health Concerns Assessment Noted Time PHQ-9 Depression Total Score: 0 09/14/19 24 3:10 PM EDT documented as of this encounter Care Teams Step Down Nurse Relationship Specialty Start Date End Date NameLeland MD [address] [place] [address] PCP - General Family Medicine 08/26/15 documented as of this encounter
--- OUTSIDE RECORDS SUMMARY | 2024-07-16 18:13 | XMS_ITS | Data Portability ---
Author Organization [email or web address] Address [address] [place] [address] Care Team Providers Care Snow Groomer Name Role Phone [facility] Referring Provider [facility] Referring Provider Assessment No assessment recorded. Plan of Treatment Reminders Order Date Submit Date Provider Last Modified By Organization Details Last Modified Time Details Appointments None recorded. Lab None recorded. Referral None recorded. Procedures None recorded. Surgeries None recorded. Imaging None recorded. Medication Orders cephalexin 500 mg capsule 2023 024 [facility] #[id number], [address] [place], [address], 4 20:15:29 cephalexin 500 mg capsule 2023 [...] Available Not Available No t Available omega 6-emn-xef-fi sh oil 1,000 mg (120 mg-180 mg) [...] Updated DateTime 4 86 /min 18 /min 258412. 72 g 98.6 [degF] 98 % 98 % 154 mm[Hg] 94 mm[Hg] Not Available [employer] [facility] [employer] 4 20:11:37 Date Recorded Respiratory rate Oxygen saturation Oxygen saturation in Arterial blood by Pulse oximetry Body temperature Heart rate Systolic blood pressure Diastolic blood pressure Provider Name and Address Organization Details Last Updated DateTime 2 20 /min 94 % 94 % 97.7 [degF] 74 /min 125 mm[Hg] 75 mm[Hg] Not Available [employer] [facility] [employer] 2 07:41:40 Social History None recorded. Functional Status None recorded. Mental Status None recorded. Family History Nothing Reported. Medical History No medical history recorded. Past Encounters Encounter ID Performer Location Encounter Start Date Encounter Closed Date Diagnosis/Indication Diagnosis SNOMED-CT Code Diagnosis ICD10 Code Diagnosis Note [id number] Lucia Khoury MD [facility] - [facility] [address] [place] [phone] 12/05/2021 07:41:38 02/10/2022 10:34:04 History of deep vein thrombosis [id number] Z86.718 56 year old male with chronic [...] primary regarding why this change was made. [id number] Arsalan Vera MD [facility] - [facility] [address] [place] [phone] 06/23/2023 20:11:26 06/23/2023 22:45:58 Cellulitis of left lower limb [id number] 3906939 L03.116 Reports increased redness and swelling of LLE. On enoxaparin for history of DVT. No new swelling. Pulses normal per veterinary inspector. No fevers, chills, systemic symptoms. Plan for [...] Member ID Guarantor Name 12/04/2021 1 [facility] - DOS PRIOR TO 2022 - DUAL ELIGIBLE (MEDICARE REPLACEMENT/ADV ANTAGE - HMO) Steven Subramanian [id number] Steven Subramanian 06/23/2023 1 [facility] - DOS ON OR AFTER 2022 - DUAL ELIGIBLE - LONG TERM OPTIONS AND ONE CARE (MEDICARE REPLACEMENT/ADV ANTAGE - HMO) Steven Subramanian [id number] Steven Subramanian Notes Date Note Type Note [...] ................... ................... ................... ................... ................... ................... ........ Oil Heaterman Note: Patient bilateral lower extremity pain times [...] ................... ................... ................... ................... ........ Disposition: Fulfilled Lucia Khoury MD [address] [facility],[address], [place], [address], [email or web address] 12/05/2021 07:49:52 06/23/2023 text/html HPI: Chronic deep [...] ................... ................... ................... ................... ................... ................... ........ Oil Heaterman Note From Gatito Rios: Pt co itchy redness on left lower extremity that is also painful. Pt denies fever nausea vomiting diarrhea. Baseline vitals assessed. Extremity redish warm to touch . No edema. [facility] [place] pics uploaded ?500mg keflex given po and RX called in . Pt education on signs indicating the ER. ................... ................... ................... ................... ................... ................... ................... ........ Disposition: Fulfilled Arsalan Vera MD [address] [facility],[address], [place], [address], [email or web address] 06/23/2023 21:40:40
--- OUTSIDE RECORDS SUMMARY | 2024-07-16 18:13 | XMS_ITS | Encounter Summary ---
Author Organization [employer] Address [address] [facility] [address] [place] [address] Care Team Providers Care Mumps Developer Name Role Phone Name, Leland MIMS Primary Care Provider Reason for Visit * Reason Onset Date Comments Med Refill 05/25/2024 Encounter Details Date Type Department Care Team ([facility] st Contact Info) Description 05/25/2024 Telephone [facility] [address] [place], [place] [phone] Name, MD Leland [address] [place] [address] Med Refill Social History Tobacco Use Types [...] 4 MG tablet To be sent to: [facility] documented in this encounter Plan of Treatment Upcoming Encounters Date Type Department Care Team (Late st Contact Info) Description 08/09/2024 11:30 AM EST Telemedicine [facility] [address] [place] [phone] Name, MD Leland [address] [place] [address] 09/17/2024 10:15 AM EDT Office Visit [facility] [address] [place] [address] Name, MD Leland [address] [place] [address] documented as of this encounter Visit Diagnoses Not on filedocumented in this encounter Additional Health Concerns Assessment Noted Time PHQ-9 Depression Total Score: 0 09/14/19 24 3:10 PM EDT documented as of this encounter Care Teams Mumps Developer Relationship Specialty Start Date End Date Name, MD Leland [address] [place] [address] PCP - General Family Medicine 08/26/15 documented as of this encounter
--- OUTSIDE RECORDS SUMMARY | 2024-07-16 18:13 | XMS_ITS | Clinical Summary ---
Author Organization [employer] Address [address] [facility] 7t [place] [address] Care Team Providers Care Brand Communications Manager Name Role Phone Name, Leland MIMS Primary Care Provider [phone] Allergies No known active allergies Medications * [...] AT BEDTIME NEEDED FOR SLEEP 28 tablet 025 Active DULoxetine (Cymbalta) [address] capsule TAKE 1 CAPSULE BY MOUTH TWICE DAILY. DO NOT BREAK, CRUSH, DISSOLVE OR CHEW 60 capsule Active methocarbamol (Robaxin) 750 MG tablet Take 1 tablet (750 mg) by mouth 3 times daily for 10 days. 30 tablet Active dexAMETHasone (Decadron) 4 MG tablet Take 1 tablet (4 mg) by mouth with breakfast and with evening meal for 7 days. 14 tablet 025 2024 Active cyclobenzaprine (Flexeril) 10 MG tablet Take 1 tablet by mouth at bedtime. 2024 Discontinued(D uplicate order (will not trigger notification to Pharmacy)) DULoxetine (Cymbalta) [address] capsule Take 1 capsule (30 mg) by mouth 2 times daily. Do not crush or chew. 60 capsule 2 024 2024 Discontinued dexAMETHasone (Decadron) 4 MG tabletIndicatio ns:Low back [...] 10 days. 40 tablet 025 2024 Discontinued predniSONE (Deltasone) 20 MG tablet Take 3 tablets (60 mg) by mouth Once per day for 3 days, THEN 2 tablets (40 mg) Once per day for 3 days, THEN 1 tablet (20 mg) Once per day for 3 days, THEN 0.5 tablets (10 mg) Once per day for 4 days. 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 I let them know patient should have a CTA to r/o pulmonary embolism Connell's cyst of knee, right 02/07/2024 Assessment & Plan (02/07/2024 3:06 PM EDT): I will refer him to orthopedics to address his pain Acquired hammer toe of left foot 03/29/2023 03/29/2023 Neuropathy 03/29/2023 03/29/2023 Other acquired deformities of left foot 03/29/20 23 03/29/2023 detention (current) use of opiate analgesic 03/1303/23/2023 Overview [...] Encounters Date Type Department Care Team Description 07/14/2024 12:00 PM EST Office Visit [facility] [address] [place] [phone] Leland Brandon MD Severe low back pain (Primary Dx); Neurogenic claudication due to lumbar spinal stenosis 07/14/2024 Travel 07/06/2024 9:00 AM EST Office Visit [facility] [address] [place] [address] [phone] Leland Brandon MD Neurogenic claudication due to lumbar spinal stenosis (Primary Dx); Radicular leg pain; Severe low back pain 07/06/2024 Travel 06/25/2024 Telephone [facility] [address] [place] [address] [phone] Keila Rojas, RN Results 06/22/2024 3:45 PM EST Telemedicine [facility] [address] [place] [address] 36917 Chrissie Cosme NP Chronic joint pain (Primary Dx) 06/22/2024 Travel 06/20/2024 Refill [facility] [address] [place] [address] 75809 Leland Brandon MD 06/18/2024 Orders Only [facility] [address] [place] [address] [phone] Amber Ortiz MD 06/15/2024 1:40 PM EST Office Visit [facility] [address] [place] [address] Stacey Wade MD Low back pain due to bilateral sciatica (Primary Dx) 06/15/2024 Refill [facility] [address] [place] [address] 73811 Leland Brandon MD Insomnia, unspecified type 06/11/2024 Telephone [facility] [address] [place] [address] [phone] Dave Cabrera MA Chartprep 05/26/2024 11:00 AM EST Office Visit [facility] [address] [place] [address] 66764 Ana Larios NP Low back pain due to bilateral sciatica (Primary Dx) 05/25/2024 Telephone [facility] [address] [place] [address] 19713 Leland Brandon MD Nurse Triage 05/25/2024 Telephone [facility] [address] [place] [address] 43334 Leland Brandon MD Med Refill 05/25/2024 Refill [facility] [address] [place] [address] 90672 Leland Brandon MD Chronic pain syndrome 05/21/2024 Refill [facility] [address] [place] [address] 38040 Leland Brandon MD Insomnia, unspecified type 05/17/2024 4:00 PM EST Office Visit [facility] [address] [place] [address] 67231 Amber Ortiz MD Low back pain due to bilateral sciatica (Primary Dx) 05/17/2024 Telephone [facility] [address] [place] [address] 69251 Keila Rojas, ANNITA EMR History 05/07/2024 Refill [facility] [address] [place] [address] [phone] Leland Brandon MD 04/30/2024 Telephone [facility] [address] [place] [address] 29610 Shahida Duque MA CHART PREP 04/25/2024 Telephone [facility] [address] [place] [address] 17236 Lyudmila Garcia MA Chart Prep 04/24/2024 Telephone [facility] [address] [place] [address] 46642 Leland Brandon MD ER Follow-up 04/24/2024 Refill [facility] [address] [place] [address] [phone] Leland Brandon MD Insomnia, unspecified type 04/18/2024 Telephone [facility] [address] [place] [address] Lili Cox RN 04/17/2024 3:40 PM EST Office Visit [facility] [address] [place] [address] Barbie Levy MD Acute pain of left [...] 12.8 oz) 07/14/2024 11:39 AM EST Height 182.9 cm (6') 07/06/2024 10:39 AM EST Body Mass Index 40.39 07/06/2024 10:39 AM EST Plan of Treatment Upcoming Encounters Date Type Department Care Team (Late st Contact Info) Description 08/09/2024 11:30 AM EST Telemedicine [facility] [address] [place] [address] Name, MD Leland [address] [place] [address] 09/17/2024 10:15 AM EDT Office Visit [facility] [address] [facility] [place] [address] Name, MD [place]eland [place] [address] Health Maintenance Due Date Last Done Comments [...] EST Narrative 06/19/2024 8:34 AM EST ? [facility] ?[address] ?[place] [address] ?XRay Report ? Signed ? Patient: Moris Francisco,Steven ?MR#: M ?? [id number] ? : 1965 ?Acct:[id number] ? Age/Sex: 59 / M ?ADM Date: 06/18/24 ? Loc: HO.XRAY ? Attending Dr: Amber Ortiz MD ? Ordering Physician: Amber Ortiz MD ?? Date of Service: 06/18/24 ?? Procedure(s): XR sacrum coccyx min 2V ?? Accession Number(s): [id number] ? cc: Amber Ortiz MD; Roma,Leland MIMS ? CLINICAL HISTORY: Bl hip pain coccygela [...] on ?? 06/19/2024 08:32:40 ? Dictated By: ?Derw Germain MD ? Signed By: ?<Electronically signed by Drew Germain MD in OV> ? 06/19/24 0833 ? DD/ 0832 ? TD/TT: 06/19/24 0832 ? Neck Skewer: ? Procedure Note Mery Saeed - 06/19/[address] [address] XRay Report Signed Patient: Michele Novak#: M [id number] : 1965Acct:[id number] Age/Sex: 59 / MADM Date: 06/18/24 Loc: HO.XRAY Attending Dr: Amber Ortiz MD Ordering Physician: Amber Ortiz MD Date of Service: 06/18/24 Procedure(s): XR sacrum coccyx min 2V Accession Number(s): [id number] cc: Amber Ortiz MD; Name,Leland MIMS CLINICAL [...] signed by Drew Germain MD in OV> 06/19/24832 DD/ 1 TD/TT: 06/19/24831 Neck Skewer: Amber Ortiz MD IMG XR PROCEDURES Edited Result - Final * XR Hips Bilateral 3 or 4 Views with or without Pelvis (06/19/2024 8:31 AM EST) Anatomical Region Laterality Modality Lower Extremities, Hip Bilateral Radiograp hic Imaging 06/19/2024 8:31 AM EST Narrative 06/19/2024 8:32 AM EST ? [facility] ?[address] ?[place] [address] ?XRay Report ? Signed ? Patient: Steven Novak ?MR#: M ?? [id number] ? : 1965 ?Acct:[id number] ? Age/Sex: 59 / M ?ADM Date: 06/18/25 ? Loc: HO.XRAY ? Attending Dr: Amber Ortiz MD ? Ordering Physician: Amber Ortiz MD ?? Date of Service: 06/18/24 ?? Procedure(s): XR hip RAINE min 3V w/wo pel ?? Accession Number(s): [id number] ? cc: Amber Ortiz MD; Leland Brandon MD ? CLINICAL HISTORY: PAIN ? Exam: AP [...] ? DD/ 0 ? TD/TT: 06/19/24830 ? Neck Skewer: ? Procedure Note Donyajairater, Image - 06/19/2024 [place] [address] XRay Report Signed Patient: Michele Novak#: M [id number] : 1965Acct:[id number] Age/Sex: 59 / MADM Date: 06/18/24 Loc: HO.MAEGAN Attending Dr: Amber Ortiz MD Ordering Physician: Amber Ortiz MD Date of Service: 06/18/24 Procedure(s): XR hip RAINE min 3V w/wo pel Accession Number(s): [id number] cc: Amber Ortiz MD; Name,Leland MIMS CLINICAL [...] MD on 06/19/2024 08:31:38 Dictated By: Drew Germani MD Signed By: <Electronically signed by Drew Germain MD in OV> 06/19/24831 DD/ 0 TD/TT: 06/19/24830 Neck Skewer: Amber Ortiz MD IMG XR PROCEDURES Edited Result - Final * XR Lumbar Spine 2-3 Views (06/18/2024 4:40 PM EST) Anatomical Region Laterality Modality Spine, L-spine Radiographic Rasheeda ging 06/18/2024 4:40 PM EST Narrative 06/18/2024 4:41 PM EST ? [facility] ?[address] ?[place] [address] ?XRay Report ? Signed ? Patient: Steven Novak ?MR#: M ?? [id number] ? : 1965 ?Acct:[id number] ? Age/Sex: 59 / M ?ADM Date: 06/18/24 ? Loc: HO.XRAY ? Attending Dr: Amber Ortiz MD ? Ordering Physician: Stacey Wade MD ?? Date of Service: 06/18/24 ?? Procedure(s): XR lumbar spine 2-3V ?? Accession Number(s): [id number] ? cc: Staecy Wade MD; Name,Leland MIMS ? CLINICAL HISTORY: [...] DD/ 1640 ? TD/TT: 06/18/24 1640 ? Neck Skewer: ? Procedure Note Mery Saeed - 06/18/[address] [address] XRay Report Signed Patient: Baron NovakFrancoise#: M [id number] : 1965Acct:[id number] Age/Sex: 59 / MADM Date: 06/18/24 Loc: HO.XRAY Attending Dr: Amber Ortiz MD Ordering Physician: Stacey Wade MD Date of Service: 06/18/24 Procedure(s): XR lumbar spine 2-3V Accession Number(s): [id number] cc: Stacey Wade MD; Name,Leland MIMS CLINICAL [...] 06/18/24 1640 DD/ 1640 TD/TT: 06/18/24 1640 Neck Skewer: us Stacey Maldonado MD IMG XR PROCEDURES Fin al Result * XR Knee 4+ Views Left (04/17/2024 3:57 PM EST) Anatomical Region Laterality Modality Lower Extremities, Knee Left Radiogra phic Imaging 04/17/2024 3:57 PM EST Narrative 04/18/2024 9:17 AM EST ?[facility] ?[address] ?[place] [address] ?XRay Report ? Signed ? Patient: Moris Singh,Steven ?MR#: M ?? [id number] ? : 1965 ?Acct:[id number] ? Age/Sex: 59 / M ?ADM Date: 11/05/24 ? Loc: HO.HHCX ? Attending Dr: Barbie Levy MD ? Ordering Physician: Barbie Levy MD ?? Date of Service: 04/17/24 ?? Procedure(s): XR knee LT 4V ?? Accession Number(s): [id number] ? cc: Barbie Levy MD ? EXAMINATION: ?? XR KNEE, LEFT ? CLINICAL INFORMATION: ?? Left knee pain following a fall. ? COMPARISON: ?? Left knee radiographs dated 11/17/2022. ? TECHNIQUE: ?? Four views of the left knee. ? FINDINGS: ?? Xbstfvun-ie-eweqhz patellofemoral as well as mild medial and [...] ??Cameron Earl MD ??04/18/2024 09:14 AM EST ?? Workstation: [id number] ? Dictated By: ?Cameron Earl MD ? Signed By: ?<Electronically signed by Cameron Earl MD in OV> ?04/18/24 0914 ? DD/ 1557 ? TD/TT: 04/17/24 1600 ? Neck Skewer: SR ? Procedure Note Mery Saeed - 04/18/[address] [address] XRay Report Signed Patient: Baron NovakFrancoise#: M [id number] : 1965Acct:[id number] Age/Sex: 59 / MADM Date: 04/17/24 Loc: HO.HHCX Attending Dr: Barbie Levy MD Ordering Physician: Barbie Levy MD Date of Service: 04/17/24 Procedure(s): XR knee LT 4V Accession Number(s): [id number] cc: Barbie Levy MD EXAMINATION: XR KNEE, LEFT CLINICAL INFORMATION: Left knee pain following a fall. COMPARISON: Left knee radiographs dated 11/17/2022. TECHNIQUE: Four views of the left knee. FINDINGS: Pxeufeyq-nn-icawfx patellofemoral as well as mild medial and [...] Cameron Earl MD 04/18/2024 09:14 AM EST RP Workstation: [id number] Dictated By: Cameron Earl MD Signed By: <Electronically signed by Cameron Earl MD in OV> 04/18/24 0914 DD/ 1557 TD/TT: 04/17/24 1600 Neck Skewer: SR Barbie Levy MD IMG XR PROCEDURES Edited R esult - Final * Hepatitis C Antibody with Reflex to HCV, RNA, Quantitative, Real-Time PCR (10/14/2023 11:05 AM EDT) Hepatitis C Antibody Nonreactive Nonreactive [facility] Comment:Antibodies to HCV no t detected; does not exclude early acuteHCV infection. Blood Venous blood specimen / Unknown 10/14/2023 11:05 AM EDT 10/14/2023 1:15 PM EDT Leland Brandon MD LAB BLOOD ORDERABLES Final Resul t [facility] [address] [place] [phone] * HIV-1/2 Antigen and Antibodies, Fourth Generation, with Reflexes (10/14/2023 11:05 AM EDT) HIV AB/AG Nonreactive Nonreactive [facility] Comment:HIV-1 p24 Ag and/or HIV-1/HIV-2 Ab not detected.A test result that is nonreactive does not exclude thepossibility of exposure to or infection with HIV-1 and/orHIV-2. Nonreactive results in this assay for individualswith prior exposure to HIV-1 and/or HIV-2 may be due toantigen and antibody levels that are below the limit ofdetection of this assay.The [employer] HIV Ag/Ab Combo assay result andsupplemental assay results should be interpreted inconjunction with the patient's clinical presentation,history and other laboratory results. If the results areinconsistent with clinical evidence, additional testing issuggested to confirm the result. Blood Venous blood specimen / Unknown 10/14/2023 11:05 AM EDT 10/14/2023 1:15 PM EDT us Leland Brandon MD LAB BLOOD ORDERABLES Final Resul t [facility] [address] [place] [phone] * (ABNORMAL) Lipid Panel, Standard (10/14/2023 11:05 AM EDT) Triglycerides 105 <150 mg/dL [facility] Comment:Desirable Triglyceri de: less than 150 mg/dLBorderline High Triglyceride 150-199 mg/dLHigh Triglyceride: 200-499 mg/dLVery High Triglyceride: greater than or equal to 5OO mg/dL Cholesterol 192 <200 mg/dL [facility] Comment:Desirable Cholestero l: less than 200 mg/dLBorderline High Cholesterol: 200-239 mg/dLHigh Cholesterol: greater than 239 mg/dL LDL Cholesterol Calculated 102(H) <100 mg/dL [facility] Comment:Desirable LDL: less than 100 mg/dLNear Optimal/Above Optimal LDL: 110- 129 mg/dLBorderline High LDL: 130-159 mg/dLHigh LDL: 160-189 mg/dLVery High LDL: greater than or equal to 190 mg/dL HDL Cholesterol 69 >40 mg/dL [facility] Comment:Desirable HDL: great er than 40 mg/dL Note: This HDL assay may give artificially low results in patients with liver disease. Blood Venous blood specimen / Unknown 10/14/2023 11:05 AM EDT 10/14/2023 1:15 PM EDT us Leland Brandon MD LAB BLOOD ORDERABLES Final Resul t [facility] [address] [place] [address] [phone] * Colonoscopy (07/14/2023) Colonoscopy Normal Normal Comment:Normal Colonoscopy r epeat 10 years Leland Brandon MD HEALTH MAINTENANCE Final Result from Last 3 Months or Most Recently Relevant to Health Maintenance Insurance - [employer] Care Teams Brand Communications Manager Relationship Specialty Start Date End Date Name, MD Leland [address] [place] [address] PCP - General Family Medicine 08/26/15
--- OUTSIDE RECORDS SUMMARY | 2024-07-16 18:13 | XMS_ITS | Referral Summary ---
Author Organization [facility] Address [address] [place] [address] Care Team Providers Care Pulling Unit Operator Name Role Phone No, Pcp Primary Care [...] Treatment Not on file Insurance Care Teams Pulling Unit Operator Relationship Specialty Start Date End Date No, Pcp HIREN PCP - General 01/29/22
--- OUTSIDE RECORDS SUMMARY | 2024-07-16 18:13 | XMS_ITS | Clinical Summary ---
Author Organization [facility] Address [address] [place] [address] Care Team Providers Care Diagnostic Radiologic Technologist Name Role Phone No, Pcp Primary Care [...] patient's age to complete this topic Insurance [facility] Care Teams Diagnostic Radiologic Technologist Relationship Specialty Start Date End Date No, Pcp HIREN PCP - General 01/29/22
== END 2024-07-16 18:08 | disposition home or self-care (01) ==
LOC: HO.MRI 18:07
PROVIDERS: PCP Internal Medicine Geriatric Medicine; Visit Provider Internal Medicine Geriatric Medicine
DX: M48.062 Spinal stenosis, lumbar region with neurogenic claudication (principal); M54.10 Radiculopathy, site unspecified; M54.50 Low back pain, unspecified
CPT/HCPCS: 72148

== ENCOUNTER → 2024-07-16 18:07 | Outpatient (BNV) | payer OTHER, SELFPAY | PROVIDERS: PCP Internal Medicine Geriatric Medicine; Visit Provider Radiology Diagnostic Radiology | DX: M48.062 Spinal stenosis, lumbar region with neurogenic claudication (principal); M54.16 Radiculopathy, lumbar region | CPT/HCPCS: 72148 ==

== ENCOUNTER 2024-08-01 15:03 | Outpatient (REF) | payer OTHER, SELFPAY ==
--- OUTSIDE RECORDS SUMMARY | 2024-08-01 15:12 | XMS_ITS | Encounter Summary ---
Author Organization [employer] Address [address] [facility] 7t [place] [address] Care Team Providers Care Microbiology Lab Assistant Name Role Phone Name, Leland MIMS Primary Care Provider [phone] Reason for Visit * Reason Comments Med Refill Encounter Details Date Type Department Care Team ([facility] st Contact Info) Description 07/17/2024 Refill [facility] MEDICINE [address] [place], [place] [phone] Name, MD Leland [address] [place] [address] Insomnia, unspecified type Social History Tobacco Use [...] Care Team (Late st Contact Info) Description 08/07/2024 1:15 PM EST Office Visit [facility] MEDICINE [address] [place] [phone] Stacey Wade MD [address] [place] [address] 09/17/2024 10:15 AM EDT Office Visit [address] [address] Name, MD Leland [address] [place] [address] documented as of this encounter Visit Diagnoses Diagnosis Insomnia, unspecified type documented in this encounter Additional Health Concerns Assessment Noted Time PHQ-9 Depression Total Score: 0 09/14/19 24 3:10 PM EDT documented as of this encounter Care Teams Microbiology Lab Assistant Relationship Specialty Start Date End Date NameLeland MD [address] [place] [phone] PCP - General Family Medicine 08/26/15 documented as of this encounter
--- OUTSIDE RECORDS SUMMARY | 2024-08-01 15:12 | XMS_ITS | Encounter Summary ---
Author Organization [employer] Address [address] [facility] 7t [place] [address] Care Team Providers Care Milliner Helper Name Role Phone Name, Leland MIMS Primary Care Provider [phone] Encounter Details Date Type Department Care Team [...] Description 08/07/2024 1:15 PM EST Office Visit [facility] [address] [place] [phone] Stacey Wade MD [address] [place] [address] 09/17/2024 10:15 AM EDT Office Visit [facility] [address] [place] [phone] NameLeland MD [address] [place] [phone] documented as of this encounter Visit Diagnoses Not on filedocumented in this encounter Additional Health Concerns Assessment Noted Time PHQ-9 Depression Total Score: 0 09/14/19 24 3:10 PM EDT documented as of this encounter Care Teams Milliner Helper Relationship Specialty Start Date End Date NameLeland MD [address] [place] [phone] PCP - General Family Medicine 08/26/15 documented as of this encounter
--- OUTSIDE RECORDS SUMMARY | 2024-08-01 15:12 | XMS_ITS | Encounter Summary ---
Author Organization [employer] Address [address] [facility] 7t [place] [address] Care Team Providers Care Licensed Architect Name Role Phone Name, Leland MIMS Primary Care Provider [phone] Reason for Visit * Reason Onset Date Comments Med Refill 07/28/2023 Encounter Details Date Type Department Care Team ([facility] st Contact Info) Description 07/28/2023 Telephone [facility] MEDICINE [address] [place] [address] Name, MD Leland [address] [place] [address] Med Refill Social History Tobacco Use Types [...] Vogt LPN - 07/28/2023 11:52 AM EST TRANSPORTATION ASSISTANT checked 07/28/23 last filled on 06/17/23 refill 2/3 patient should have 1 refill left. * Telephone Encounter - Hailee Louie - 07/28/2023 11:08 AM EST TC from pt requesting medication refill. Medications needing refill : gabapentin (Neurontin) 800 MG tablet To be sent to: [facility] - [place], [place] - [address] [place] [address] documented in this encounter Plan of Treatment Upcoming Encounters Date Type Department Care Team (Late st Contact Info) Description 08/07/2024 1:15 PM EST Office Visit [facility] MEDICINE [address] [place] [phone] Stacey Wade MD [address] [place] [phone] 09/17/2024 10:15 AM EDT Office Visit [address] [address] Name, MD Leland [address] [place] [phone] documented as of this encounter Visit Diagnoses Not on filedocumented in this encounter Additional Health Concerns Assessment Noted Time PHQ-9 Depression Total Score: 0 09/07/19 23 1:16 PM EDT documented as of this encounter Care Teams Licensed Architect Relationship Specialty Start Date End Date Name, MD Leland [address] [place] [address] PCP - General Family Medicine 08/26/15 documented as of this encounter
--- OUTSIDE RECORDS SUMMARY | 2024-08-01 15:12 | XMS_ITS | Encounter Summary ---
Author Organization [employer] Address [address] [facility] 7t [place] [address] Care Team Providers Care Nuclear Chemistry Technician Name Role Phone Name, Leland MIMS Primary Care Provider [phone] Reason for Visit * Reason Onset Date Comments Nurse Triage 07/24/2024 Encounter Details Date Type Department Care Team ([facility] st Contact Info) Description 07/24/2024 Telephone [facility] [address] [place] [address] Name, MD Leland [address] [place] [address] Nurse Triage Social History Tobacco Use Types Packs/Day Years [...] encounter Miscellaneous Notes * Telephone Encounter - Loan Sanchez RN - 07/25/2024 3:37 PM EST TC placed to pt via [employer] gas appliance installer (Tutor Trove ID#[id number]) to inform of below provider message, I will send the methocarbamol. I will not send the steroid since he was recently admitted with sepsis to the hospital. RN informed pt of above provider message. Pt states he needs the dexamethasone as it helps him. Pt reports he feels stuck and wants help as his mobility is not good and needs medication. RN advised pt the provider would not send the steroid as pt was recently admitted with sepsis. Pt reports he didn't go to ED for his joint mobility, but went for the bump in his leg so he does not understand why the provider won't prescribe the medication dexamethasone that helps his mobility. RN stated that though the pt did not go to the ED for joints, due to him recently being admitted with sepsis, the provider would not send the dexamethasone. Pt verbalized understanding. RN informed pt the methocarbamol was sent to pharmacy. Pt reports he spoke to provider on the phonethe other day and when he spoke to provider, the provider told him that a referral would be sent for pain clinic and physical therapy. RN informed pt the pain clinic referral was placed and we are awaiting appointment date. Pt reports during phone call, the provider discussed MRI results with him but pt was busy and did not understand what the provider told him about MRI results. RN informed pt they would send message to provider regarding physical therapy referral and MRI results. Advised of [facility] hours. Pt verbalized understanding. Message forwarded to provider to review and advise. * Telephone Encounter - Leland Brandon MD - 07/25/2024 6:42 AM EST I will send the methocabamol I will not send the steroid since he was recently admitted with sepsis to the hospital Please get the discharge summary from [facility] * Telephone Encounter - Jackie Betancur RN - 07/24/2024 5:04 PM EST Please see below. states when PCP called to discuss MRI results pt requested refill of methocarbamol and dexamethasone as helps with pain. Pt advised only see that PCP was going to refer to [facility]. Pt wants message sent to PCP to send rx for above meds. Pt advised as end of day will send to PCP to review request and advise Blue Team primary care team nurses. 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 Call returned to Steven Singh to triage below. Reports being admitted to [facility] on Tuesday and just discharged today. Per notes reviewed, pt dx with DVT, cellulitis, sepsis and hypotension. Medications Started Cephalexin (cephalexin monohydrate 500 mg oral capsule) 1 capsule 500 Milligram By Mouth Every 12 hours for 6 Days Patient Instructions please follow up with PCP within 2 weeks of discharge please follow with PCP out-patient please follow with [facility] for leg varicose veins Patient advised to make sure completes full course of abx medication. To call back before scheduledHDF if sx fail to resolved. To return to ED for worsening pain, redness or onset of fever. Pt states when PCP called to discuss MRI results pt requested refill of methocarbamol and dexamethasone as helps with pain. Pt advised only see that PCP was going to refer to [facility]. Pt wants messagesent to PCP to send rx for above meds. Pt advised as end of day will send to PCP to review request and advise Blue Team primary care team nurses. Future Appointments Date Time Provider Department Center 08/07/2024 1:15 PM Stacey Maldonado MD [facility] 08/09/2024 11:30 AM Leland Brandon MD [facility] 09/17/2024 10:15 AM Leland Brandon MD [facility] Insurance verified as active per Real Time Eligibility in [facility]. Protocol Used: Post-Hospitalization Follow-up Call (Adult) Protocol-Based Disposition: See in Office or Video Visit Today or Tomorrow Override (Final) Disposition: See in Office or Video Visit within 2 Weeks Override Reason: Organization policy Positive Triage Question: * Patient wants to be seen * All higher-acuity triage questions were negative Care Advice Discussed: * Continue Treatment * Reasons To Call Back - Fever occurs - You become worse * Telephone Encounter - Bernardino Mackenzie - 07/24/2024 3:53 PM EST Symptoms: Leg Pain - Not From Injury, Body Aches Outcome: Talk to a nurse or provider within 15 minutes Reason: Can't walk (unless normally can't walk) The caller accepted this outcome. documented in this encounter Plan of Treatment Upcoming Encounters Date Type Department Care Team (Late st Contact Info) Description 08/07/2024 1:15 PM EST Office Visit [facility] [address] [place] [address] Stacey Wade MD [address] [place] [address] 09/17/2024 10:15 AM EDT Office Visit [facility] [address] [place] [address] Name, MD Leland [address] [place] [address] documented as of this encounter Visit Diagnoses Not on filedocumented in this encounter Additional Health Concerns Assessment Noted Time PHQ-9 Depression Total Score: 0 09/14/19 24 3:10 PM EDT documented as of this encounter Care Teams Nuclear Chemistry Technician Relationship Specialty Start Date End Date Name, MD Leland [address] [place] [address] PCP - General Family Medicine 08/26/15 documented as of this encounter
--- OUTSIDE RECORDS SUMMARY | 2024-08-01 15:12 | XMS_ITS ---
Author Organization [facility] Address [address] [place] [address] Care Team Providers Care Sheriff Officer Name Role Phone Name Leland MIMS Primary Care Provider Unavailabl e Black, Yaquelin Unavailable [phone] PericNalini addison Unavailable [phone] Allergies No Known Allergies REASON FOR VISIT Painful nail(s) aggrevated by shoes causing difficulty standing/walking, Foot pain Medications Medication SIG (Take, Route, Frequency, Duration) Notes Start Date End Date Status Naproxen 500 MG 1 tablet Orally WITH FOOD Twice a day for 14 days 01/28/2023 Not-Taki ng Ciclopirox 0.77 % 1 application Smoking Pipes Cleaner ally Twice a day for 30 days [...] Piroxicam 20 MG TAKE 1 CAPSULE BY [facility] EVERY DAY WITH FOOD FOR 30 [...] 05/21/2024 Encounters Encounter Location Date Provider Diagnosis [facility] [address] [address] 05/21/2024 Nalini Dyer Tinea unguium B35.1 ; [...] Provider Name:Nalini addison, 08/02/2024 02:45:00 PM, [address] [facility], [place], [address], Procedure Notes * Category Sub-Category Detail Notes [...] * Rajeev MCLAUGHLINOB: 3 (59 yo M)Acc No.[id number]:05/21/2024 Progress Note Patient:?Steven MCLAUGHLIN Provider:?Nalini Dyer DPM :1965???Age:59 Y???Sex:Male Jose e:05/21/2024 Address:[address] [place], [place] [address] Pcp:Leland Brandon MD Subjective: * Chief Complaints: [...] M77.52??? Plan: * Treatment: * Procedures:?Injection:?Sm. Joint, Bursa?71965, J0702 Injection - Left 2nd interspace sm/med [...] ( 0-1) out of 10.? * Procedure Codes:?76006 DEBRI DE NAIL, 6 OR MORE, Modifiers: XS 59295 DRAIN/INJECT, JOINT/BURSA, Modifiers: XS J0702 INJ BETAMETHSN [...] Provider:?Nalini Dyer DPM Date:?02/2024 Generated for Luisa john/Alexandrea/eTransmitting on:?08/01/2024 09:11 AM EST History and Physical Notes * HPI [...]
--- OUTSIDE RECORDS SUMMARY | 2024-08-01 15:12 | XMS_ITS ---
Author Organization [facility] Address [address] [place] [address] Care Team Providers Care Transmission Line Engineer Name Role Phone Name Leland MIMS Primary Care Provider Unavailyves e Black, Yaquelin Unavailable [phone] REASON FOR VISIT sd cx 03/05/2024 Encounters Encounter Location Date Provider Diagnosis [address] [address] 03/05/2024 Yaquelin Black Plan Of Treatment Next Appt Details Provider Name:Nalini addison, 08/02/2024 02:45:00 PM, [address] [place] [address], [id number], Progress Notes * Rajeev MCLAUGHLINOB: 3 (58 yo M)Acc No.[id number]:03/05/2024 Patient:?Steven Mclaughlin :1965???Age:58 Y???Sex:Male Address:[address] [place], [address] * true * Date:? Generated for Printi alvaro/Alexandrea/eTransmitting on:?08/01/2024 03:11 PM EST
--- OUTSIDE RECORDS SUMMARY | 2024-08-01 15:12 | XMS_ITS | Encounter Summary ---
Author Organization [employer] Address [address] [facility] 7t [place] [address] Care Team Providers Care Material Damage Adjuster Name Role Phone Name, Leland MIMS Primary Care Provider [phone] Reason for Visit * Reason Onset Date Comments Referral 07/20/2022 Encounter Details Date Type Department Care Team ([facility] st Contact Info) Description 07/20/2022 Telephone [facility] [address] [place], [place] [phone] Name, MD Leland [address] [place] [address] Referral Social History Tobacco Use Types Packs/Day [...] Podiatry for new or existing referrals for [facility], [address], [place] [address], Phone #: , Reason for referral is Chronic Severe pain left foot. Marva advised pt has an X-ray done and patient does have the symptom of Chronic pain. Advised Marva with [facility] will forward to team nurse for new referral and biotech production specialist for existing referral. Please call Marva at [phone] documented in this encounter Plan of Treatment Upcoming Encounters Date Type Department Care Team (Late st Contact Info) Description 08/07/2024 1:15 PM EST Office Visit [address] [address] Stacey Wade MD [address] [place] [address] 09/17/2024 10:15 AM EDT Office Visit [address] [address] Name, MD Leland [address] [place] [address] documented as of this encounter Visit Diagnoses Not on filedocumented in this encounter Care Teams Material Damage Adjuster Relationship Specialty Start Date End Date Name, MD Leland [address] [place] [address] PCP - General Family Medicine 08/26/15 documented as of this encounter
--- OUTSIDE RECORDS SUMMARY | 2024-08-01 15:12 | XMS_ITS | Encounter Summary ---
Author Organization [employer] Address [address] [facility] 7t [place] [address] Care Team Providers Care Push Bench Operator Helper Name Role Phone Name, Leland MIMS Primary Care Provider [phone] Reason for Visit * Reason Onset Date Comments REQUEST ER NOTES 07/24/2024 Med Refill 07/24/2024 Patient walked i n requesting med refill for Dexamethasone 4mg patient stated he went to pharmacy to get medication and theres no medication in the pharmacy Encounter Details Date Type Department Care Team (Late st Contact Info) Description 07/24/2024 Telephone [facility] [address] [place], [place] [phone] Name, MD Leland [address] [place], [place] [phone] REQUEST ER NOTES; Med Refill (Patient walked in requesting med refill for Dexamethasone 4mg patient stated he went to pharmacy to get medication and theres no medication in the pharmacy ) Social History Tobacco Use Types Packs/Day Years [...] Encounter - Loan Sanchez RN - 07/25/2024 4:10 PM EST Noted. RN spoke to pt regarding dexamethasone. * Telephone Encounter - Jackie Betancur RN - 07/24/2024 5:05 PM EST Please assist with obtaining discharge summary for [facility] visit on 07/22- 07/24/2024 for provider review prior to upcoming appointment. Future Appointments Date Time Provider Department Center 08/07/2024 1:15 PM Stacey Maldonado MD MEDICINE [facility] 08/09/2024 11:30 AM Leland Brandon MD [facility] 09/17/2024 10:15 AM Leland Brandon MD [facility]IC[facility] documented in this encounter Plan of Treatment Upcoming Encounters Date Type Department Care Team (Late st Contact Info) Description 08/07/2024 1:15 PM EST Office Visit [facility] [address] [place] [address] Stacey Wade MD [address] [place] [address] 09/17/2024 10:15 AM EDT Office Visit [facility] [address] [place] [address] Name, MD Leland [address] [place] [address] documented as of this encounter Visit Diagnoses Not on filedocumented in this encounter Additional Health Concerns Assessment Noted Time PHQ-9 Depression Total Score: 0 09/14/19 24 3:10 PM EDT documented as of this encounter Care Teams Push Bench Operator Helper Relationship Specialty Start Date End Date Name, MD Leland [address] [place] [address] PCP - General Family Medicine 08/26/15 documented as of this encounter
--- OUTSIDE RECORDS SUMMARY | 2024-08-01 15:12 | XMS_ITS | Encounter Summary ---
Author Organization [employer] Address [address] [facility] 7t [place] [address] Care Team Providers Care Tray Server Name Role Phone Name, Leland MIMS Primary Care Provider [phone] Encounter Details Date Type Department Care Team ([facility] Contact Info) Description 11/22/2022 Abstract [facility] MEDICINE [address] [place] [address] [phone] Name, MD Leland [address] [place] [address] [phone] Social History Tobacco Use Types Packs/Day Years [...] Upcoming Encounters Date Type Department Care Team ([facility] Contact Info) Description 08/07/2024 1:15 PM EST Office Visit [facility] MEDICINE [address] [place] [address] [place] [address] Stacey Wade MD [address] [place] [address] 09/17/2024 10:15 AM EDT Office Visit [facility] [address] [place] [address] Name, MD Leland [address] [place] [address] documented as of this encounter Visit Diagnoses Not on filedocumented in this encounter Additional Health Concerns Assessment Noted Time PHQ-9 Depression Total Score: 0 09/07/19 23 1:16 PM EDT documented as of this encounter Care Teams Tray Server Relationship Specialty Start Date End Date Name, MD Leland [address] [place] [address] PCP - General Family Medicine 08/26/15 documented as of this encounter
--- OUTSIDE RECORDS SUMMARY | 2024-08-01 15:12 | XMS_ITS | Encounter Summary ---
Author Organization [employer] Address [address] [facility] [address] 7t [place] [address] Care Team Providers Care Book Illustrator Name Role Phone Name, Leland MIMS Primary Care Provider [phone] Encounter Details Date Type Department Care Team (Late st Contact Info) Description 07/19/[address] [facility] MEDICINE [address] [place] [address] Name, MD Leland [address] [place], [place] [phone] Social History Tobacco Use Types Packs/Day Years [...] Description 08/07/2024 1:15 PM EST Office Visit [address] [phone] Stacey Wade MD [address] [place] [address] [phone] 09/17/2024 10:15 AM EDT Office Visit [address] [address] Leland Brandon MD [address] [place] [address] documented as of this encounter Procedures Procedure [...] documented as of this encounter Care Teams Book Illustrator Relationship Specialty Start Date End Date Leland Brandon MD [address] [place] [address] PCP - General Family Medicine 08/26/15 documented as of this encounter
--- OUTSIDE RECORDS SUMMARY | 2024-08-01 15:12 | XMS_ITS | Encounter Summary ---
Author Organization [employer] Address [address] [facility] 7t [place] [address] Care Team Providers Care Copy Technician Name Role Phone Name, Leland MIMS Primary Care Provider [phone] Reason for Visit * Reason Comments Med Refill Encounter Details Date Type Department Care Team ([facility] st Contact Info) Description 06/20/2023 Refill [facility] [address] [place], [place] [phone] Name, MD Leland [address] [place] [address] Insomnia, unspecified type Social History Tobacco Use [...] Description 08/07/2024 1:15 PM EST Office Visit [facility] [address] [place] [address] [phone] Stacey Wade MD [address] [place] [address] 09/17/2024 10:15 AM EDT Office Visit [facility] [address] [place] [address] Name, MD Leland [address] [place] [address] [phone] documented as of this encounter Visit Diagnoses Diagnosis Insomnia, unspecified type documented in this encounter Additional Health Concerns Assessment Noted Time PHQ-9 Depression Total Score: 0 09/07/19 23 1:16 PM EDT documented as of this encounter Care Teams Copy Technician Relationship Specialty Start Date End Date Name, MD Leland [address] [place] [address] PCP - General Family Medicine 08/26/15 documented as of this encounter
--- OUTSIDE RECORDS SUMMARY | 2024-08-01 15:12 | XMS_ITS | Encounter Summary ---
Author Organization [employer] Address [address] [facility] 7t [place] [address] Care Team Providers Care Senior Service Aide Name Role Phone Name, Leland MIMS Primary Care Provider [phone] Reason for Visit * Reason Onset Date Comments Verbal Order 07/24/2024 Encounter Details Date Type Department Care Team ([facility] st Contact Info) Description 07/24/2024 Telephone [facility]INE [address] [place] [address] Name, MD Leland [address] [place] [address] Verbal Order Social History Tobacco Use Types Packs/Day Years [...] encounter Miscellaneous Notes * Telephone Encounter - Margarita Ledesma RN - 07/25/2024 11:27 AM EST Telephone call returned to Katey at [facility], spoke with Katey. Gave verbal orders for VNA care. Asked when last office visit was, advised it was 07/06/24 with PCP and also pt was seen in [facility] walk in clinic on 07/14/24. Katey verbalized understanding, no further questions. * Telephone Encounter - João Bhatt - 07/24/2024 4:34 PM EST Tc from Emelia with [facility] requesting verbal orders. Please contact Emelia at [phone] Opt 2. documented in this encounter Plan of Treatment Upcoming Encounters Date Type Department Care Team (Late st Contact Info) Description 08/07/2024 1:15 PM EST Office Visit [facility] MEDICINE [address] [place] [address] Stacey Wade MD [address] [place] [address] 09/17/2024 10:15 AM EDT Office Visit [facility] MED[facility]INE [address] [place] [address] Name, MD Leland [address] [place] [address] documented as of this encounter Visit Diagnoses Not on filedocumented in this encounter Additional Health Concerns Assessment Noted Time PHQ-9 Depression Total Score: 0 09/14/19 24 3:10 PM EDT documented as of this encounter Care Teams Senior Service Aide Relationship Specialty Start Date End Date Name, MD Leland [address] [place] [address] PCP - General Family Medicine 08/26/15 documented as of this encounter
--- OUTSIDE RECORDS SUMMARY | 2024-08-01 15:12 | XMS_ITS | Encounter Summary ---
Author Organization [employer] [facility] Address [address] [facility] 7t [place] [address] Care Team Providers Care Blood Bank Order Control Clerk Name Role Phone Name, Leland MIMS Primary Care Provider [phone] Reason for Visit * Reason Comments Med Refill Encounter Details Date Type Department Care Team ([facility] [place] Contact Info) Description 10/22/2022 Refill [facility] MEDICINE [address] [place], [place] [phone] Name, MD Leland [address] [place] [address] Insomnia, unspecified type Social History Tobacco Use [...] Upcoming Encounters Date Type Department Care Team ([facility] Contact Info) Description 08/07/2024 1:15 PM EST Office Visit [facility] [address] [place] [phone] Stacey Wade MD [address] [place] [address] 09/17/2024 10:15 AM EDT Office Visit [address] [address] Name, MD Leland [address] [place] [address] documented as of this encounter Visit Diagnoses Diagnosis Insomnia, unspecified type documented in this encounter Additional Health Concerns Assessment Noted Time PHQ-9 Depression Total Score: 0 09/07/19 23 1:16 PM EDT documented as of this encounter Care Teams Blood Bank Order Control Clerk Relationship Specialty Start Date End Date Name, MD Leland [address] [place] [address] PCP - General Family Medicine 08/26/15 documented as of this encounter
--- OUTSIDE RECORDS SUMMARY | 2024-08-01 15:12 | XMS_ITS | Encounter Summary ---
Author Organization [employer] Address [address] [facility] [address] 7t [place] [address] Care Team Providers Care Surgery Aide Name Role Phone Name, Leland MIMS Primary Care Provider [phone] Reason for Visit * Reason Comments Med Refill Encounter Details Date Type Department Care Team ([facility] st Contact Info) Description 09/23/2023 Refill [facility] [address] [place] [address] Ila Lroa MD [address] [place] [address] Social History Tobacco Use Types Packs/Day Years [...] Description 08/07/2024 1:15 PM EST Office Visit [facility] MEDICINE [address] [place] [address] Stacey Wade MD [address] [place] [address] 09/17/2024 10:15 AM EDT Office Visit [address] [address] Name, MD Leland [address] [place] [address] documented as of this encounter Visit Diagnoses Not on filedocumented in this encounter Additional Health Concerns Assessment Noted Time PHQ-9 Depression Total Score: 0 09/14/19 24 3:10 PM EDT documented as of this encounter Care Teams Surgery Aide Relationship Specialty Start Date End Date Name, MD Leland [address] [place] [address] PCP - General Family Medicine 08/26/15 documented as of this encounter
--- OUTSIDE RECORDS SUMMARY | 2024-08-01 15:12 | XMS_ITS | Encounter Summary ---
Author Organization [employer] Address 75 [facility] 7t [place] [address] Care Team Providers Care Marine Cargo Specialist Name Role Phone Name, Leland MIMS Primary Care Provider Reason for Visit * Reason Onset Date Comments Med Refill 05/25/2024 Encounter Details Date Type Department Care Team ([facility] st Contact Info) Description 05/25/2024 Telephone [facility] [address] [place], [place] [phone] Name, MD Leland [address] [place] [address] Med Refill Social History Tobacco Use Types [...] 4 MG tablet To be sent to: [facility] documented in this encounter Plan of Treatment Upcoming Encounters Date Type Department Care Team (Late st Contact Info) Description 08/07/2024 1:15 PM EST Office Visit [facility] [address] [place] [address] [phone] Stacey Wade MD [address] [place] [address] 09/17/2024 10:15 AM EDT Office Visit [facility] [address] [place] [address] [phone] Name, MD Leland [address] [place] [address] documented as of this encounter Visit Diagnoses Not on filedocumented in this encounter Additional Health Concerns Assessment Noted Time PHQ-9 Depression Total Score: 0 09/14/19 24 3:10 PM EDT documented as of this encounter Care Teams Marine Cargo Specialist Relationship Specialty Start Date End Date Name, MD Leland [address] [place] [address] PCP - General Family Medicine 08/26/15 documented as of this encounter
--- OUTSIDE RECORDS SUMMARY | 2024-08-01 15:12 | XMS_ITS | Encounter Summary ---
Author Organization [employer] Address 75 [facility] 7t [place] [address] Care Team Providers Care Casting Sorter Name Role Phone NameLeland MD Primary Care Provider [phone] Reason for Referral * Consultation (Routine) - Pending Review Specialty Diagnoses / Procedures Referred By Kalhil hoskins Referred To Contact Neurology Diagnoses Tremor of both hands Leland Brandon MD [address] [place] [address] Phone: tel: fax: Referral ID Status Reason Start Date Expiration Date Visits Requested Visits Authorized [id number] Pending Review Specialty Services Required 08/01/2024 08/01/2025 1 1 Reason for Visit * Reason Comments Follow-up Encounter Details Date Type Department Care Team (Late st Contact Info) Description 08/01/2024 2:15 PM EST Office Visit [facility] [address] [place] [address] [phone] Leland Brandon MD [address] [place] [address] Cellulitis, unspecified cellulitis site (Primary Dx); Chronic pain syndrome; Tremor of both hands Social History Tobacco Use Types Packs/Day Years [...] Frequency of Binge Drinking Not on file 4 Score 0 12/14/2023 Depression Answer Date Recorded [...] Sign Reading Time Taken Comments Blood Pressure 129/73 08/01/2024 2:30 PM EST Pulse 75 08/01/2024 2:30 PM EST Temperature 36.7 ??C (98.1 ??F) 08/01/2024 2:30 PM ES T Respiratory Rate 14 08/01/2024 2:30 PM EST Oxygen Saturation 96% 08/01/2024 2:30 PM EST Inhaled Oxygen Concentration - - Weight 135 kg (297 lb 3.2 oz) 08/01/2024 2:30 PM EST Height 182.9 cm (6') 08/01/2024 2:30 PM EST Body Mass Index 40.31 08/01/2024 2:30 PM EST documented in this encounter Plan of Treatment Upcoming Encounters Date Type Department Care Team (Late st Contact Info) Description 08/07/2024 1:15 PM EST Office Visit [facility] [address] [place] [address] Stacey Wade MD [address] [place] [address] 09/17/2024 10:15 AM EDT Office Visit [address] [address] Name, MD Leland [address] [place] [address] Scheduled Orders Name Type Priority Associated Diagnoses Orde r Schedule TSH W/Reflex to FT4 Lab Routine Tremor of both hands Expected: 08/01/2024 (Approximate), Expires: 08/01/2025 Scheduled Referrals Name Type Priority Associated Diagnoses Orde r Schedule Referral to Neurology Outpatient Referral Routine Tremor of both hands Expected: 08/01/2024 (Approximate), Expires: 08/01/2025 documented as of this encounter Visit Diagnoses Diagnosis Cellulitis, unspecified cellulitis site- Primary Chronic pain syndrome Tremor of both hands documented in this encounter Additional Health Concerns Assessment Noted Time PHQ-9 Depression Total Score: 0 09/14/19 24 3:10 PM EDT documented as of this encounter Care Teams Casting Sorter Relationship Specialty Start Date End Date Name, MD Leland [address] [place] [address] PCP - General Family Medicine 08/26/15 documented as of this encounter
--- OUTSIDE RECORDS SUMMARY | 2024-08-01 15:12 | XMS_ITS | Encounter Summary ---
Author Organization [employer] Address 75 [facility] 7t [place] [address] Care Team Providers Care Speeder Hand Name Role Phone NameLeland MD Primary Care Provider [phone] Reason for Referral * Consultation (Routine) - Authorized Specialty Diagnoses / Procedures Referred By Kahlil hoskins Referred To Contact Pain Medicine Diagnoses Severe low back pain Radicular leg pain Leland Brandon MD [address] [place] [address] Phone: tel: fax: [address] Phone: tel: fax: Referral ID Status Reason Start Date Expiration Date Visits Requested Visits Authorized [id number] Authorized Specialty Services Required 07/20/2024 07/20/2025 1 1 Encounter Details Date Type Department Care Team ([facility] st Contact Info) Description 07/20/2024 Orders Only [facility] MEDICINE [address] [place] [address] Leland Brandon MD [address] [place] [address] Severe low back pain (Primary Dx); Radicular leg pain Social History Tobacco Use Types Packs/Day [...] Frequency of Binge Drinking Not on file 07/0 08/2023 Score 0 12/14/2023 Depression Answer Date [...] PM EDT documented as of this encounter Progress Notes * Leland Brandon MD - 07/20/2024 1:17 PM EST I called the patient. We discussed results of MRI. He continues to have low back pain with radiation to the legs. I recommended referral to [facility] pain clinic for therapeutic recomendations documented in this encounter Plan of Treatment Upcoming Encounters Date Type Department Care Team (Late st Contact Info) Description 08/07/2024 1:15 PM EST Office Visit [facility] [address] [place] [address] Stacey Wade MD [address] [place] [address] 09/17/2024 10:15 AM EDT Office Visit [address] [address] Name, MD Leland [address] [place] [address] Scheduled Referrals Name Type Priority Associated Diagnoses Orde r Schedule Referral to Pain Medicine Outpatient Referral Routine Severe low back pain Radicular leg pain Expected: 07/20/2024 (Approximate), Expires: 07/20/2025 documented as of this encounter Visit Diagnoses Diagnosis Severe low back pain- Primary Lumbago Radicular leg pain documented in this encounter Additional Health Concerns Assessment Noted Time PHQ-9 Depression Total Score: 0 09/14/19 24 3:10 PM EDT documented as of this encounter Care Teams Speeder Hand Relationship Specialty Start Date End Date NameLeland MD [address] [place] [phone] PCP - General Family Medicine 08/26/15 documented as of this encounter
--- OUTSIDE RECORDS SUMMARY | 2024-08-01 15:12 | XMS_ITS | Encounter Summary ---
Author Organization [employer] Address 75 [facility] 7t [place] [address] Care Team Providers Care Gas Usage Meter Clerk Name Role Phone Name, Leland MIMS Primary Care Provider [phone] Reason for Visit * Reason Onset Date Comments Med Refill 01/02/2024 Encounter Details Date Type Department Care Team ([facility] st Contact Info) Description 01/02/2024 Telephone [facility]INE [address] [place] [address] Name, MD Leland [address] [place] [address] Med Refill Social History Tobacco Use Types [...] 10 MG tablet To be sent to: [facility] [employer], [place] - [address] [place] [address] documented in this encounter Plan of Treatment Upcoming Encounters Date Type Department Care Team ([facility] st Contact Info) Description 08/07/2024 1:15 PM EST Office Visit [facility] [address] [place] [address] Stacey Wade MD [address] [place] [address] 09/17/2024 10:15 AM EDT Office Visit [facility] 230 [facility] [place] [address] Name, MD Leland [address] [place] [address] documented as of this encounter Visit Diagnoses Not on filedocumented in this encounter Additional Health Concerns Assessment Noted Time PHQ-9 Depression Total Score: 0 09/14/19 24 3:10 PM EDT documented as of this encounter Care Teams Gas Usage Meter Clerk Relationship Specialty Start Date End Date Name, MD Leland [place] [facility] [place] [address] PCP - General Family Medicine 08/26/15 documented as of this encounter
--- OUTSIDE RECORDS SUMMARY | 2024-08-01 15:12 | XMS_ITS ---
Author Organization [facility] Address [address] [place] [address] Care Team Providers Care Airfield Defence Guard Name Role Phone Name Leland MIMS Primary Care Provider Unavailabl e Alex Smithmie Unavailable [phone] Nalini Dyer Unavailable [phone] Encounters Encounter Location Date Provider Diagnosis [address] [phone] 03/05/2024 Nalini Dyer Plan Of Treatment Next Appt Details Provider Name:Nalini addison, 08/02/2024 02:45:00 PM, [address] [place] [address], [phone], Progress Notes * Jaren MCLAUGHLINsDOB: 3 (59 yo M)Acc No.[id number]:03/05/2024 Progress Note Patient:?Steven MCLAUGHLIN Provider:?Nalini Dyer DPM :1965???Age:58 Y???Sex:Male Jose e:03/05/2024 Address:[address] [place], [place] [phone] Pcp:Leland Brandon MD Subjective: * Chief Complaints: [...] Dyer DPM Date:? Generated for Luisa john/Alexandrea/Clayton on:?08/01/2024 09:11 AM EST
--- OUTSIDE RECORDS SUMMARY | 2024-08-01 15:12 | XMS_ITS | Encounter Summary ---
Author Organization [employer] Address 75 [facility] 7t [place] [address] Care Team Providers Care Coach Tour Driver Name Role Phone NameLeland MD Primary Care Provider [phone] Reason for Referral * Imaging (Routine) - Closed Specialty Diagnoses / Procedures Referred By Contac t Referred To Contact Radiology Diagnoses Severe low back pain Neurogenic claudication due to lumbar spinal stenosis Radicular leg pain Procedures MR Lumbar Spine w/o Contrast NameLeland MD [address] [place] [address] Phone: tel: fax: [address] Phone: tel: fax: Referral ID Status Reason Start Date Expiration Date Visits Re quested Visits Authorized [id number] Closed 07/06/2024 07/06/2025 1 1 Reason for Visit * Reason Comments Severe low back pain, problems walking Encounter Details Date Type Department Care Team (Late st Contact Info) Description 07/06/2024 9:00 AM EST Office Visit [facility]INE [address] [place] [address] [phone] Leland Brandon MD [address] [place] [address] [phone] Neurogenic claudication due to lumbar spinal stenosis [...] a lot of pain when he walks [place] [address] XRay Report Signed Patient: Steven Novak MR#: [id number] : 1965 Acct:[id number] Age/Sex: 59 / M ADM Date: 06/18/24 Loc: [facility] Attending Dr: Amber Ortiz MD Ordering Physician: Stacey Wade MD Date of Service: 06/18/24 Procedure(s): XR lumbar spine 2-3V Accession Number(s): [id number] cc: Stacey Wade MD; Name,Leland MIMS CLINICAL [...] Visit [facility] [address] [place] [address] [phone] Stacey Wade MD [address] [place] [address] [phone] 09/17/2024 10:15 AM EDT Office Visit [address] [phone] Leland Brandon MD [address] [place] [address] documented as of this encounter Procedures Procedure Name Priority Date/Time Associated Diagnosis Comments MR LUMBAR SPINE WO CONTRAST Routine 07/16/2024 6:25 PM EST Severe low back pain Neurogenic claudication due to lumbar spinal stenosis Radicular leg pain documented in this encounter Results * MR Lumbar Spine w/o Contrast (07/16/2024 6:25 PM EST) Anatomical Region Laterality Modality Spine, L-spine Magnetic Resonan ce 07/16/2024 6:25 PM EST Narrative 07/17/2024 7:57 AM EST ? [facility] [facility] ?[address] ?[place] [address] ? Magnetic Resonance Report ? Signed ? Patient: Moris Francisco,Steven ?MR#: M ?? [id number] ? : 1965 ?Acct:[id number] ? Age/Sex: 59 / M ?ADM Date: 07/16/24 ? Loc: HO.MRI ? Attending Dr: Leland Brandon MD ? Ordering Physician: Leland Brandon MD ?? Date of Service: 07/16/24 ?? Procedure(s): MR lumbar spine wo con ?? Accession Number(s): [id number] ? cc: Leland Brandon MD ? EXAMINATION: ?? MR LUMBAR SPINE WITHOUT CONTRAST ? CLINICAL INFORMATION: ?? Severe low back pain. Neurogenic claudication. ? COMPARISON: ?? None available. ? TECHNIQUE: ?? MRI of the lumbar spine was obtained using routine sequences without ?? contrast. ? FINDINGS: ?? Last rib-bearing vertebra labeled T12. ? No bone marrow STIR signal abnormality. ?? Multilevel marginal osteophyte formation and disc desiccation from ?? T12-L1 to L5-S1. ?? Grade 1 anterolisthesis L4-5. ?? There is a 12 mm intrinsic hyperintense T1 and T2 bone lesion on the ?? posterior right L1 vertebra likely intraosseous hemangioma. ? The conus medullaris ends at superior endplate of L1 with normal signal. ?? Prominent epidural fat in a circumferential fashion from L3 to the ?? sacrum. ? T12-L1: ?? Facet joint hypertrophy as well as ligamentum flavum. Broad-based disc ?? bulging. Bilateral neuroforamina narrowing. No central spinal canal ?? stenosis. ? L1-2: ?? Broad-based disc bulging. Facet joint and ligamentum flavum ?? hypertrophy. Reduced AP diameter of the thecal sac and the neural ?? foramina likely encroaching the exiting nerve roots. ? L2-3: ?? Broad-based disc bulging. Facet joint and ligamentum flavum ?? hypertrophy. Reduced AP diameter of the thecal sac with the CSF ?? effacement. Bilateral neuroforamina stenosis likely encroaching the ?? neural elements both thecal sac and the exiting nerve roots. ? L3-4: ?? Broad-based disc bulging. Facet joint and ligamentum flavum ?? hypertrophy. CSF effacement of the thecal sac. Bilateral neuroforamina ?? stenosis encroaching posterior compressing the exiting nerve roots and ?? encroaching the neural elements of the thecal sac. ? L4-5: ?? Grade 1 anterolisthesis, broad-based disc bulging, facet joint and ?? ligamentum flavum hypertrophy resulting in CSF effacement of the thecal ?? sac and bilateral neuroforamina stenosis, right greater than the left ?? compressing the neural elements both thecal sac and exiting nerve roots. ? L5-S1: ?? Prominent epidural fat. Broad-based disc bulging. Facet joint and ?? ligamentum flavum hypertrophy. Reduced AP diameter of the thecal sac ?? and the neural foramina likely encroaching the neural elements. ? Asymmetric volume loss of the right psoas muscle. ?? Probable cystic lesions in the parapelvic left kidney. ? MR/MR lumbar spine wo con ?? IMPRESSION: ?? Multilevel lumbar spondylosis resulting in grade 1 anterolisthesis L4-5 ?? and multilevel central spinal canal and neuroforamina stenosis more ?? conspicuous at L4-5 and to a lesser extent L2-3, L3-4 and L5-S1 levels. ?? Epidural lipomatosis from L3 to sacrum. ? Electronically signed by: ??Santana Greer MD ??07/17/2024 07:55 AM ?? EST RP ? Dictated By: ?Santana Cross MD ? Signed By: ?<Electronically signed by Santana Garvin MD in OV> ? 07/17/24 0755 ? DD/ 1825 ? TD/TT: 07/16/24 1855 ? Data Processing Systems Project Planner: ? Procedure Note Darlin, Image - 07/17/[address] [address] Magnetic Resonance Report Signed Patient: Michele Novak#: M [id number] : 1965Acct:[id number] Age/Sex: 59 / MADM Date: 07/16/24 Loc: HO.MRI Attending Dr: Leland Brandon MD Ordering Physician: Leland Brandon MD Date of Service: 07/16/24 Procedure(s): MR lumbar spine wo con Accession Number(s): [id number] cc: Name,Leland MIMS EXAMINATION: MR LUMBAR SPINE WITHOUT CONTRAST CLINICAL INFORMATION: Severe low back pain. Neurogenic claudication. COMPARISON: None available. TECHNIQUE: MRI of the lumbar spine was obtained using routine sequences without contrast. FINDINGS: Last rib-bearing vertebra labeled T12. No bone marrow STIR signal abnormality. Multilevel marginal osteophyte formation and disc desiccation from T12-L1 to L5-S1. Grade 1 anterolisthesis L4-5. There is a 12 mm intrinsic hyperintense T1 and T2 bone lesion on the posterior right L1 vertebra likely intraosseous hemangioma. The conus medullaris ends at superior endplate of L1 with normal signal. Prominent epidural fat in a circumferential fashion from L3 to the sacrum. T12-L1: Facet joint hypertrophy as well as ligamentum flavum. Broad-based disc bulging. Bilateral neuroforamina narrowing. No central spinal canal stenosis. L1-2: Broad-based disc bulging. Facet joint and ligamentum flavum hypertrophy. Reduced AP diameter of the thecal sac and the neural foramina likely encroaching the exiting nerve roots. L2-3: Broad-based disc bulging. Facet joint and ligamentum flavum hypertrophy. Reduced AP diameter of the thecal sac with the CSF effacement. Bilateral neuroforamina stenosis likely encroaching the neural elements both thecal sac and the exiting nerve roots. L3-4: Broad-based disc bulging. Facet joint and ligamentum flavum hypertrophy. CSF effacement of the thecal sac. Bilateral neuroforamina stenosis encroaching posterior compressing the exiting nerve roots and encroaching the neural elements of the thecal sac. L4-5: Grade 1 anterolisthesis, broad-based disc bulging, facet joint and ligamentum flavum hypertrophy resulting in CSF effacement of the thecal sac and bilateral neuroforamina stenosis, right greater than the left compressing the neural elements both thecal sac and exiting nerve roots. L5-S1: Prominent epidural fat. Broad-based disc bulging. Facet joint and ligamentum flavum hypertrophy. Reduced AP diameter of the thecal sac and the neural foramina likely encroaching the neural elements. Asymmetric volume loss of the right psoas muscle. Probable cystic lesions in the parapelvic left kidney. MR/MR lumbar spine wo con IMPRESSION: Multilevel lumbar spondylosis resulting in grade 1 anterolisthesis L4-5 and multilevel central spinal canal and neuroforamina stenosis more conspicuous at L4-5 and to a lesser extent L2-3, L3-4 and L5-S1 levels. Epidural lipomatosis from L3 to sacrum. Electronically signed by: Santana Greer MD 07/17/2024 07:55 AM EST Dictated By: Santana Cross MD Signed By: <Electronically signed by Santana Garvin MDin OV> 07/17/24 0755 DD/ 1825 TD/TT: 07/16/24 1855 Data Processing Systems Project Planner: Leland Brandon MD IMDonovan MRI PROCEDURES Edited Result - Final documented in this encounter Visit Diagnoses Diagnosis Neurogenic claudication due to lumbar spinal stenosis- Primary Spinal stenosis of lumbar region Radicular leg pain Severe low back pain Lumbago documented in this encounter Additional Health Concerns Assessment Noted Time PHQ-9 Depression Total Score: 0 09/14/19 24 3:10 PM EDT documented as of this encounter Care Teams Coach Tour Driver Relationship Specialty Start Date End Date Name, MD Leland [address] [place] [address] PCP - General Family Medicine 08/26/15 documented as of this encounter
--- OUTSIDE RECORDS SUMMARY | 2024-08-01 15:12 | XMS_ITS | Encounter Summary ---
Author Organization [employer] Address [address] [facility] [address] 7t [place] [address] Care Team Providers Care Ultrasound Technol Name Role Phone Name, Leland MIMS Primary Care Provider [phone] Encounter Details Date Type Department Care Team [...] Description 08/07/2024 1:15 PM EST Office Visit [facility] [address] [place] [address] Stacey Wade MD [address] [place] [address] 09/17/2024 10:15 AM EDT Office Visit [facility] [address] [place] [address] NameLeland MD [address] [place] [address] documented as of this encounter Visit Diagnoses Not on filedocumented in this encounter Additional Health Concerns Assessment Noted Time PHQ-9 Depression Total Score: 0 09/14/19 24 3:10 PM EDT documented as of this encounter Care Teams Ultrasound Technol Relationship Specialty Start Date End Date NameLeland MD [address] [place] [address] PCP - General Family Medicine 08/26/15 documented as of this encounter
--- OUTSIDE RECORDS SUMMARY | 2024-08-01 15:12 | XMS_ITS | Encounter Summary ---
Author Organization [employer] Address 75 [facility] 7t [place] [address] Care Team Providers Care Project Management Professor Name Role Phone Name, Leland MIMS Primary Care Provider [phone] Reason for Visit * Reason Onset Date Comments Medication Question 03/10/2023 Encounter Details Date Type Department Care Team ([facility] st Contact Info) Description 03/10/2023 Telephone [facility] [address] [place] [address] Name, MD Leland [address] [place] [address] Medication Question Social History Tobacco Use Types [...] T?C to pt. For below message through Bolt id - [id number] for below message, pt. Verbally agreed and understood. * Telephone Encounter - Michael Yu - 03/10/2023 10:03 AM EDT Tc from pt stating insurance will not cover for script guaiFENesin (Robitussin) 100 MG/5ML liquid & pseudoephedrine (Sudafed) 30 MG tablet, pt was seen on 03/09/23 with PCP for COVID . Pt would like to know if PCP can send a alternative script. Heavy Equipment Sales Associate also confirmed with pharmacy. Please contact at [phone] Estonian documented in this encounter Plan of Treatment Upcoming Encounters Date Type Department Care Team (Late st Contact Info) Description 08/07/2024 1:15 PM EST Office Visit [facility] [address] [place] [address] Stacey Wade MD [address] [place] [address] 09/17/2024 10:15 AM EDT Office Visit [address] [address] Name, MD Leland [address] [place] [address] documented as of this encounter Visit Diagnoses Not on filedocumented in this encounter Additional Health Concerns Assessment Noted Time PHQ-9 Depression Total Score: 0 09/07/19 23 1:16 PM EDT documented as of this encounter Care Teams Project Management Professor Relationship Specialty Start Date End Date Name, MD Leland [address] [place] [address] PCP - General Family Medicine 08/26/15 documented as of this encounter
--- OUTSIDE RECORDS SUMMARY | 2024-08-01 15:12 | XMS_ITS | Encounter Summary ---
Author Organization [employer] Address [address] [facility] 7t [place] [address] Care Team Providers Care Game Designer Name Role Phone Name, Leland MIMS Primary Care Provider [phone] Reason for Visit * Reason Comments Med Refill Encounter Details Date Type Department Care Team ([facility] Contact Info) Description 02/21/2023 Refill [facility] [address] [place] [address] [phone] Name, MD Leland [address] [place] [address] [phone] Insomnia, unspecified type Social History Tobacco Use [...] Upcoming Encounters Date Type Department Care Team ([facility] Contact Info) Description 08/07/2024 1:15 PM EST Office Visit [facility] [address] [place] [address] [phone] Stacey Wade MD [address] [place], [place] [phone] 09/17/2024 10:15 AM EDT Office Visit [facility] [address] [place] [address] Name, MD Leland [address] [place] [address] documented as of this encounter Visit Diagnoses Diagnosis Insomnia, unspecified type documented in this encounter Additional Health Concerns Assessment Noted Time PHQ-9 Depression Total Score: 0 09/07/19 23 1:16 PM EDT documented as of this encounter Care Teams Game Designer Relationship Specialty Start Date End Date Name, MD Leland [address] [place] [phone] PCP - General Family Medicine 08/26/15 documented as of this encounter
--- OUTSIDE RECORDS SUMMARY | 2024-08-01 15:12 | XMS_ITS | Data Portability ---
Author Organization [place] [facility], [facility] Address [address] [place] [phone] Care Team Providers Care Dental Claims Processor Name Role Phone NAME, MARIO Primary Care Provider [phone] Assessment Encounter Date Assessment Date Assessment LastModified [...] consider CT temporal bone given chronic symptoms. [email or web address] Not available 11/24/2023 17:08:14 01/24/2024 01/24/2024 Patient [...] Risks and benefits of surgery discussed using critical care paramedic. Will begin the scheduling process and see him back at the time of surgery. [email or web address] Not available 01/24/2024 16:10:18 06/18/2024 06/18/2024 Patient presents postoperatively after insertion of T-tubes bilaterally 05/18. Has had a burning pain in the right ear. Physical exam reveals well placed and patent tubes without otorrhea. The skin of the right EAC is erythematous and dry though intact without edema. The conductive component of his hearing loss has resolved and he has a persistent mbwblorf-cv-xgoxzu neurosensory loss. Recommend updated technology; [facility] provider list provided with medical clearance and [...] Time Details Appointments Establish ed 15 2024 01:15P M JAH WILKERSON PA-C Not available Not available Not available Lab None recorded. Referral None recorded. Procedures None recorded. Surgeries myringoto my, bilateral , with tube insertion (SURG) 2023 024 [email or web address] Not available 01/24/2024 16:11:39 Imaging None recorded. Medication Orders fluocinol one acetonide oil 0.01 % ear drops 2024 025 [facility][id number], [address] [place], [address], 06/18/2024 15:56:32 Patient TargetsNo targets recorded. 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 09544154 Active 2017 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, unspecif ied side; Note: Changed from M26.62 to M26.629 (01/08/20 23 2:39 PM) , Date Diagnose d: 11/17/2017 2:11 PM (M26.62) Not Available [facility] 4 02:48:26 Otalgia of left ear 2303445610 Active 2017 Otalgia, left ear; Note: Date Diagnose d: 11/17/2017 2:11 PM (H92.02) Otalgi a, left ear; Note: Date Diagnose d: 6 1:23 PM (H92.02) ; Start Date : 06/27/19 16 Not Available [facility] 4 02:48:25 Adhesive middle ear disease 4762860 Active 2013 Adhesive middle ear disease, unspecif ied as to involvem ent; Location : right CM S Risk: minimal risk CMS Treatmen t: self-cabrera ited or minor problem Conditio n: worse No te: Date Diagnose d: 4 4:36 PM (385.10) , Patient has a mild right anterior retracti on and left myringo- incudope xy Not Available [facility] 4 02:48:23 Sensorin eural hearing loss 85788693 Active 2015 Sensorin eural hearing loss, unilater al, left ear, with unrestri cted hearing on the contrala teral side; Note: Date Diagnose d: 6 3:27 PM (H90.42) Not Available [facility] 4 02:48:28 Disorder of nasal sinus 0205748 Active 2020 Other specifie d disorder s of nose and nasal sinuses; Note: Date Diagnose d: 06/08/20 21 10:31 AM (J34.89) Not Available [facility] 4 02:48:20 Disorder of the nose 78319796 Active 2020 Other specifie d disorder s of nose and nasal sinuses; Note: Date Diagnose d: 06/08/20 21 10:31 AM (J34.89) Not Available [facility] 4 02:48:21 Psoriasi s 5548390 Active 2019 Other psoriasi s; Note: Date Diagnose d: 0 11:50 AM (L40.8) Not Available [facility] 4 02:48:27 Sensorin eural hearing loss in left ear 60032685204 109 Active 2015 Sensorin eural hearing loss, unilater al, left ear, with restrict ed hearing on the contrala teral side; Note: Date Diagnose d: 06/01/20 16 2:10 PM (H90.A22 ) Not Available [facility] 4 02:48:29 Sensorin eural hearing loss of bilatera l ears 219624946 Active 2019 [facility] Bilatera lly; Note: Date Diagnose d: 4 4:08 PM (389.18) , Patient with bilatera l sensorin eural hearing loss affectin g all frequenc ie. Recommen d amplific ation, patient provided with a copy of [employer] audiogra m, medical clearanc e for hearing aids, and a list of [facility] hearing aid dispense rs. Follow up as needed ; Start Date : 03/12/20 14 Senso rineural hearing loss, bilatera l; Note: Date Diagnose d: 04/28/20 20 11:59 AM (H90.3) Sensor ineural hearing loss, bilatera l; Note: Date Diagnose d: 6 1:49 PM (H90.3) ; Start Date : 06/27/19 16 Not Available [facility] 4 02:48:24 Chronic serous otitis media of left ear 730050430 Active 2015 Chronic serous otitis media, left ear; Note: Date Diagnose d: 6 2:21 PM (H65.22) Not Available [facility] 4 02:48:28 Chronic serous otitis media 24609300 Active 2013 Chronic serous otitis media; Location [...] given severity of hearing loss Not Available [facility] 4 02:48:22 Mixed conducti ve and sensorin eural hearing loss of right ear 60434911995 105 Active 2015 Mixed conducti ve and [...] 16 2:10 PM (H90.A31 ) Not Available [facility] 4 01:08:24 Tobacco user 992621361 Completed 201701/24/2024 Tobacco use; Note: Date Diagnose d: 8 11:00 AM (Z72.0) JABARI DELVALLE MD [address] [place] [address], [place], [address] , [facility] 4 16:10:42 Superfic ial mycosis 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 2016 Other specifie d superfic ial mycoses; Note: Date Diagnose d: 7 1:41 PM (B36.8) Not Available [facility] 4 02:48:28 Dysfunct ion of eustachi an tube 90387982 Active 2013 Eustachi an tube dysfunct ion; Note: Date Diagnose d: 4 4:08 PM (381.81) Not Available [facility] 4 02:48:25 Otalgia 40523919 Active 2014 Otalgia; Note: Date Diagnose d: 5 2:02 PM (388.70) Not Available [facility] 4 02:48:29 Referred otalgia 52529003 Active 2019 Otalgia secondar y to TMJ; Note: Date Diagnose d: 0 2:21 PM (388.72) Not Available [facility] 4 02:48:30 Impacted cerumen 12745183 Active 2014 Impacted cerumen; [facility] Treatmen t: lupillos hed problem (to examiner ): stable or improved Note: Date Diagnose d: 5 1:42 PM (380.4) Not Available [facility] 4 02:48:23 Itching of skin 923893217 Active 2019 Other pruritus ; Note: Date Diagnose d: 0 2:25 PM (L29.8) Not Available [facility] 4 02:48:21 Impacted cerumen in right ear 77649450975 05853 Active 2016 Impacted cerumen, right ear; Note: Date Diagnose d: 7 4:26 PM (H61.21) Not Available [facility] 4 02:48:26 Impacted cerumen of bilatera l ears 17468729013 42027 Active 2016 Impacted cerumen, bilatera l; Note: Date Diagnose d: 7 1:58 PM (H61.23) Not Available [facility] 4 02:48:29 Chronic serous otitis media of right ear 647569639 Active 2015 Chronic serous otitis media, right ear; Note: Date Diagnose d: 6 3:57 PM (H65.21) Not Available [facility] 4 02:48:25 Bilatera l disorder of Eustachi an tubes 59465197547 04577 Active 2015 Other specifie d disorder s of Eustachi an tube, bilatera l; Note: Date Diagnose d: 6 2:21 PM (H69.83) Not Available [facility] 4 02:48:27 Otalgia of right ear 5802828802 Active 2017 Otalgia, right ear; Note: Date Diagnose d: 8 10:49 AM (H92.01) Otalgi a, right ear; Note: Date Diagnose d: 5 2:03 PM (H92.01) [mapped from ICD9 code: 388.70] ; Start Date : 01/03/20 15 Not Available [facility] 02:48:22 Chronic serous otitis media 32150733 Active 2023 JABARI DELVALLE MD [address] [facility],[address], [address] , [place] - [facility] 16:07:04 Problem Notes None recorded. Procedures Surgical History Date Name Laterality Status Provider Name and Address Organization Details Recorded Time 06/18/19 25 Air & Speech Audio with Tymps (51527, 87741 & 44283) completed BALA WASSERMAN [address] [facility],[place] [address], [place], [address], [place] - [facility] 06/18/2024 15:27:33 05/18/20 24 MYRINGOTOMY, BILATERAL, WITH TUBE INSERTION (SURG) completed Freedom Lozano [place] - [facility] 05/21/2024 11:01:39 01/24/20 24 Cerumen removal with microscope bilateral completed JABARI DELVALLE MD [address] [facility],[address], [address], [place] - [facility] 01/24/2024 16:10:57 11/24/19 24 Cerumen removal without microscope bilat completed ANTHONY APONTE PA-C [address] [facility],[address], [address], [place] - [facility] 11/24/2023 17:07:33 11/24/19 24 Tympanometry (62356) completed Roxy Rico [place] - [facility] 11/24/2023 16:43:26 11/24/19 24 Air & Bone Audio (25861) completed Roxy Rico [place] - [facility] 11/24/2023 16:45:17 Myringotomy Tube Placement completed Amber Kebede [place] - [facility] 01/24/2024 15:34:07 Imaging Results Imaging Date Name [...] mg tablet 2020 active Medicati on ID: 758246 B rand Name: atorvast atin Sen d Method: E-Prescr ibed Sub s Allowed: subs OK Medic ationGen ericName : atorvast atin Not Available Not Available Not Available bupropion HCl SR 150 mg tablet,12 hr sustained -release 2020 active Medicati on ID: 888323 B rand Name: bupropio n HCl Send [...] topical cream 06/08 completed Medicati on ID: 046296 B rand Name: Lotrison e Send Method: E-Prescr ibed Sub s Allowed: subs OK Speci al Instruct ion: apply to external ear tid X 2 weeks Me dication GenericN emily: Lotrison e Medica tion ID: [id number] B rand Name: Lotrison e Send Method: E-Prescr ibed Sub s Allowed: subs OK Speci al Instruct ion: apply to external ear tid X 2 weeks Me dication GenericN emily: Lotrison e Not Available Not Available Not Available clotrimaz ole-betam ethasone 1 %-0.05 % lotion 06/08 completed Medicati on ID: 968155 P rescribe d By Name: TONNY Tejeda [...] topical cream 01/23 completed Medicati on ID: 516692 B rand Name: betameth asone, augmente d Send Method: E-Prescr ibed Sub s Allowed: subs OK Medic ationGen ericName : betameth asone, augmente d Not Available Not Available Not Available Ciloxan 0.3 % eye drops 01/23 completed Medicati on ID: 249847 D uration Value: 3 Prescri bed By [...] layed release 2020 active Medicati on ID: 282993 B rand Name: aspirin Send Method: E-Prescr [...] applicato r 2020 active Medicati on ID: 196306 B rand Name: hydrocor tisone S end [...] mg capsule 2020 active Medicati on ID: 061102 B rand Name: tamsulos in Send Method: [...] right ear 01/23 completed Medicati on ID: 29102 Pr escribed By Name: TONNY Crisostomo nd Name: antipyri ne-benzo rohan Se nd Method: E-Prescr ibed Sub s Allowed: subs OK Speci al Instruct ion: as needed for discomfo rt Medic ationGen ericName : antipyri ne-benzo rohan Not Available Not Available Not Available hydrocort isone 1 % topical cream 2020 active Medicati on ID: 532003 B rand Name: hydrocor tisone S end Method: E-Prescr ibed Sub s Allowed: subs OK Medic ationGen ericName : hydrocor tisone Not Available Not Available Not Available cephalexi n 500 mg capsule TAKE 1 CAPSULE BY MOUTH EVERY 12 HOURS FOR 6 DAYS active Not Available Not Available No t Available dexametha sone 4 mg tablet TAKE 1 TABLET (4 MG) BY MOUTH WITH BREAKFAS T AND WITH EVENING MEAL FOR 7 DAYS. active Not Available Not Available No t [...] mg tablet 2020 active Medicati on ID: 053560 B rand Name: lisinopr il Send Method: E-Prescr ibed Sub s Allowed: subs OK Medic ationGen ericName : lisinopr il Not Available Not Available Not Available mometason e 0.1 % topical ointment APPLY TOPICALL Y EVERY DAY IN THE MORNING active Not Available Not Available No t Available mupirocin 2 % topical ointment 1 a small amount 2020 active Medicati on ID: 987988 D uration Value: 14 Brand Name: mupiroci [...] Not Available Not Available No t Available zolpidem 10 mg tablet TAKE 1 TABLET BY MOUTH AT BEDTIME NEEDED for SLEEP active Not Available Not Available No [...] mg tablet 2020 active Medicati on ID: 418942 B rand Name: loratadi ne Send Method: [...] topical cream 06/08 completed Medicati on ID: 352519 P [place] d By Name: TONNY Tejeda nd Name: mometaso ne Send Method: E-Prescr ibed Sub s Allowed: subs OK Speci al Instruct ion: Apply to external ear BID X 1 week as needed M edicaticelsa nGeneric Name: mometaso ne Not Available Not Available [...] 24 hr 2020 active Medicati on ID: 592086 B rand Name: alfuzosi n Send Method: [...] mg capsule 2020 active Medicati on ID: 761923 B rand Name: pregabal in Send Method: E-Prescr ibed Sub s Allowed: subs OK Medic ationGen ericName : pregabal in Not Available Not Available Not Available antipyrin e-benzoca ine 3 drop into right ear as directed 06/08 completed Medicati on ID: 33840 Br and Name: antipyri ne-benzo rohan Se [...] mg capsule 2020 active Medicati on ID: 913944 B rand Name: Fish Oil Send Method: E-Prescr ibed Sub s Allowed: subs OK Medic ationGen ericName : Fish Oil Not Available Not Available Not Available hydrochlo rothiazid e 12.5 mg tablet TAKE 1 TABLET BY MOUTH EVERY DAY IN THE MORNING active Not Available Not Available No t Available Athlete's Foot (clotrima zole) 1 % topical cream 01/23 completed Medicati on ID: 378711 D uration Value: 14 Prescri bed By [...] completed Not Available Not Available Not Available Gavilax 17 gram/dose oral powder DISSOLVE 17GM BY MOUTH DAILY,X1 4 DAYS active Not Available Not Available No t Available Pradaxa 150 mg capsule TAKE 1 CAPSULE BY MOUTH TWICE A DAY 01/23 completed Not Available Not Available Not Available Eliquis 5 mg tablet 2020 active Medicati on ID: 254990 B rand Name: Eliquis Send Method: E-Prescr ibed Sub s Allowed: subs OK Medic ationGen ericName : Eliquis Not Available Not Available Not Available Anoro Ellipta 62.5 mcg-25 mcg/actua tion powder for inhalatio n INHALE 1 PUFF DAILY active Not Available Not Available No t Available OxyContin 40 mg tablet,cr ush resistant [...] Updated DateTime 01/24/2024 182.88 cm 38 kg/m2 485415.86 g Amber Kebede [facility] 01/24/2024 15:28:13 Date Recorded Body height Body mass index (BMI) Body weight Provider Name and Address Organization Details Last Updated DateTime 11/24/2023 182.88 cm 38 kg/m2 391597.86 g Barbie Conteh [facility] 11/24/2023 16:09:06 Social History Question Answer Notes LastModified by Organizat ion Details LastModified Time Tobacco Smoking Status Former Smoker JABARI DELVALLE MD [address] [place] [address], [phone], [facility] - [facility] 01/24/2024 16:04:47 When Did You Quit [...] Note [id number] DMITRI LEE MD [facility] [address] [address] 11/24/2023 15:43:29 11/24/2023 17:00:35 Bilateral disorder of Eustachian tubes 7696274109 032602 H69.83 Impacted c erumen of bilateral ears 8800138141 127111 H61.23 Otalgia of right ear 261 6729416 H92.01 Mixed cond uctive and sensorineural hearing loss of right ear 5719158518 9105 H90.A31 Profound mixed hearing loss and a Type C tympanogra m noted in the right ear. Severe to profound sensorineu ral hearing loss and a Type B tympanogra m with large volume noted in the left ear. Sensorineu ral hearing loss in left ear 6623532039 9109 H90.A22 Acute sero us otitis media of right ear 6669098398 728144 H65.01 [id number] JABARI DELVALLE MD [facility] [address] [address] 01/24/2024 15:09:42 01/24/2024 16:10:53 Bilateral disorder of Eustachian tubes 3658057994 940293 H69.83 Chronic se emmie otitis media 79300711 H65.21 Sensorineu ral hearing loss of bilateral ears 694941919 H90.3 Impacted c erumen of bilateral ears 9472182048 893666 H61.23 [id number] MARY ELLEN SWEENEY MD [facility] [address] [address] 06/18/2024 15:02:45 06/18/2024 16:05:21 Bilateral disorder of Eustachian tubes 9055212779 489576 H69.93 Right Ear:Modera te to severe SNHL with excellent speech discrimina tion.Paten t tube.Left Ear:Modera te to severe SNHL with excellent speech discrimina tion.Paten t tube. Psoriasis 5106778 L40.9 Health Concerns Section Related Observation LastModified by Organization Detai ls LastModified Time None Recorded Concern Status LastModified by Organization Details LastModified Time None Recorded Advance Directives Directive None Recorded Payers Encounter Date Sequence Insurance Name Policy Number Policy Simon Covered Member ID Smion Member ID Guarantor Name 11/24/2023 1 [employer] - [facility] [place] ([place]IC[place]AC[place]V ANTAGE - HMO) Mohit Moris [id number] Steven Salazar Moris 01/24/2024 1 [facility] - DOS ON OR AFTER 2022 - [employer] (MEDICARE REPLACEMENT/ADV ANTAGE - HMO) Steven Subramanian [id number] Steven Subramanian 06/18/2024 1 [facility] - DOS ON OR AFTER 2022 - [employer] (MEDICARE REPLACEMENT/ADV ANTAGE - HMO) Steven Subramanian [id number] Steven Subramanian Notes Date Note Type Note [...] the ears with improvement. DMITRI LEE MD [address] [place] [address], [phone], [facility] 11/25/2023 17:06:21 01/24/2024 text/html 58-year-old male with history of recurrent cerumen impaction, psoriasis affecting the external ears, and ETD s/p T-tube placement in March 2016 with sd presents for follow up of ETD. He [...] patent. Patient has binaural amplification dispensed at [facility] audiology. JABARI DELVALLE MD [address] [facility],[address], [address], [facility] - [facility] 01/24/2024 16:11:26 06/18/2024 text/html 59 year [...] not bring them today. Got them in [place] some years ago. He does not have tinnitus. MARY ELLEN FOOTE MD [address] [facility], [place], [address], [facility] - [facility] 06/18/2024 21:22:33
--- OUTSIDE RECORDS SUMMARY | 2024-08-01 15:12 | XMS_ITS | Encounter Summary ---
Author Organization [employer] Address [address] [facility] [address] [facility] [address] [place] [address] Care Team Providers Care Sales Agent Insurance Name Role Phone Name, Leland MIMS Primary Care Provider [phone] Reason for Visit * Reason Comments Leg Pain Encounter Details Date Type Department Care Team ([facility] st Contact Info) Description 07/14/2024 12:00 PM EST Office Visit [facility] [address] [place] [address] [phone] Name, MD Leland [address] [place] [address] Severe low back pain (Primary Dx); Neurogenic [...] Description 08/07/2024 1:15 PM EST Office Visit [facility] [address] [place] [address] Stacey Wade MD [address] [place] [address] 09/17/2024 10:15 AM EDT Office Visit [facility] [address] [place] [address] Name, MD Leland [address] [place] [address] documented as of this encounter Visit Diagnoses Diagnosis Severe low back pain- Primary Lumbago Neurogenic claudication due to lumbar spinal stenosis Spinal stenosis of lumbar region documented in this encounter Additional Health Concerns Assessment Noted Time PHQ-9 Depression Total Score: 0 09/14/19 24 3:10 PM EDT documented as of this encounter Care Teams Sales Agent Insurance Relationship Specialty Start Date End Date Name, MD Leland [address] [place] [address] PCP - General Family Medicine 08/26/15 documented as of this encounter
--- OUTSIDE RECORDS SUMMARY | 2024-08-01 15:12 | XMS_ITS | Encounter Summary ---
Author Organization [employer] Address [address] [facility] 7t [place] [address] Care Team Providers Care Automotive Technology Instructor Name Role Phone Name, Leland MIMS Primary Care Provider [phone] Reason for Visit * Reason Onset Date Comments FYI 07/26/2024 Encounter Details Date Type Department Care Team ([facility] st Contact Info) Description 07/26/2024 Telephone [facility] [address] [place] [address] Name, MD Leland [address] [place] [address] Social History Tobacco Use Types Packs/Day Years [...] encounter Miscellaneous Notes * Telephone Encounter - Loi Cobos - 07/26/2024 8:17 AM EST Tc from Sol with [facility] stating that they contact Pt but he refused Both time and they are only allowed to try and offer the Services twice. So they said that they were not going to keep trying. If any questions contact Sol at [phone] documented in this encounter Plan of Treatment Upcoming Encounters Date Type Department Care Team (Late st Contact Info) Description 08/07/2024 1:15 PM EST Office Visit [facility] [address] [place] [address] Stacey Wade MD [address] [place] [address] 09/17/2024 10:15 AM EDT Office Visit [facility] [address] [place] [address] Name, MD Leland [address] [place] [address] documented as of this encounter Visit Diagnoses Not on filedocumented in this encounter Additional Health Concerns Assessment Noted Time PHQ-9 Depression Total Score: 0 09/14/19 24 3:10 PM EDT documented as of this encounter Care Teams Automotive Technology Instructor Relationship Specialty Start Date End Date Name, MD Leland [address] [place] [address] PCP - General Family Medicine 08/26/15 documented as of this encounter
--- OUTSIDE RECORDS SUMMARY | 2024-08-01 15:12 | XMS_ITS | Clinical Summary ---
Author Organization [facility] Address [address] [place] [address] Phone Care Team Providers Care Carbonation Tester Name Role Phone Name, Leland MIMS Primary Care Provider [phone] Allergies No known active allergies Medications DICLOFENAC SODIUM TOP Diclofenac Sodium 1 % [...] 2 (two) times a day. Active lisinopriL (PRINIVIL,ZESTR IL) 10 mg tablet Take 1 tablet (10 mg total) by mouth 1 (one) time each day. Active ammonium lactate (AmLactin) 12 % lotion Apply topically if needed for dry skin. 400 g 4 04/19/20 25 Active Active Problems Problem Noted Date Diagnosed Date Chronic pain 03/15/2024 HTN (hypertension) 03/15/2024 Rotator cuff disorder 03/15/2024 Claustrophobia 03/15/2024 Social History Tobacco Use Types Packs/Day Years Used Date Smoking Tobacco: Never Assessed Sex and Gender Information Value Date Recorded Sex Assigned at Not on file Legal Sex Male 11:37 PM EST Gender Identity Not on file Sexual Orientation Not on file Last Filed Vital Signs [...] Pneumococcal Vaccine: 50+ Years Completed 09/14/2023, 11/29/2015 Pneumococcal Vaccine: Pediatrics (0 to 5 Years) [...] patient's age to complete this topic Meningococcal B Vacine Aged Out No lo nger eligible based on patient's age to complete [...] Test (03/21/2015) Annual BMP Blood Test abstracted us Historical Provider HEALTH MAINTENANCE Final Result from Last 3 Months or Most Recently Relevant to Health Maintenance Insurance [employer] Member Subscriber Plan / Payer (Ef fective 2017-Present) Name:Steven Subramanian Relation to Subscriber:Self Name:Steven Subramanian Payer ID:[id number] Group ID:[id number] Type:Not on file Address: [place] [address] [place] [address] Care Teams Carbonation Tester Relationship Specialty Start Date End Date Name, MD Leland [address] [place], [place] PCP - General 01/06/15
--- OUTSIDE RECORDS SUMMARY | 2024-08-01 15:12 | XMS_ITS | Patient Health Record ---
Author Organization [facility] Address [address] [facility] [place] [address] Care Team Providers Care Claims Service Adjustor Name Role Phone Name Leland MIMS Primary Care Provider Unavailabl e Luis Yaquelin Unavailable [phone] MaricelNalini addison Unavailable [phone] Allergies No Known Allergies Reason For Referral No Information Medications Medication SIG (Take, Route, Frequency, Duration) Notes Start Date End Date Status Naproxen 500 MG 1 tablet Orally WITH FOOD Twice a day for 14 days 01/28/2023 Not-Taki ng Ciclopirox 0.77 % 1 application General Counselor ally Twice a day for 30 days 07/15/2022 Not-Taki ng Pradaxa 150 MG 1 capsule Orally Twi ce a day Not-Taking Ammonium Lactate 12 % 1 application Exte rnally Twice a day for 30 days Not-Taki ng Piroxicam 20 MG TAKE 1 CAPSULE BY [facility] EVERY DAY WITH FOOD FOR 30 [...] Problem Status W/U Status Risk Notes Problem [id number] Plantar wart (B07.0) Active confirmed Problem Acquired hammer toe of left foot (2207389632654245) Other hammer toe(s) (acquired), left foot (M20.42) Active confirmed Problem 881416622 Hammer toe of right foot (M20.41) Active confirmed Problem 342315420 Neuropathy (G62.9) Active confirmed Problem 128700282021667 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 (M19.071) Active confirmed Problem Acquired deformity of left foot (28269824512776505) PlantarFlexion of metatarsal of left foot (M21.6X2) Active confirmed Problem 9462520663082285 Gouty arthritis of left foot (M10.9) Active confirmed Vital Signs Height 6ft in 05/21/2024 Weight 289 lbs 05/21/2024 BMI 39.19 kg/m2 05/21/2024 Encounters Encounter Location Date Provider Diagnosis [address] [address] 08/15/2023 Nalini Dyer Metatarsalgia, left foot M77.42 ; Neuropathy G62.9 ; Other hammer toe(s) (acquired), left foot M20.42 ; Hammer toe of right foot M20.41 and Metatarsalgia, right foot M77.41 [facility] [address] [place] [address] 09/13/2023 Nalini Dyer Xerosis of skin L85. 3 ; Metatarsalgia, left foot M77.42 ; Bursitis of intermetatarsal bursa of left foot M77.52 ; PlantarFlexion of metatarsal of left foot M21.6X2 ; Other hammer toe(s) (acquired), left foot M20.42 and Hammer toe of right foot M20.[address] [address] 09/29/2023 Nalini Perica Tinea unguium B35.1 ; Metatarsalgia, left foot M77.42 ; Pain in right toe(s) M79.674 ; Pain in left toe(s) M79.675 ; Xerosis of skin L85.3 ; PlantarFlexion of metatarsal of left foot M21.6X2 ; Other hammer toe(s) (acquired), left foot M20.42 and Hammer toe of right foot M20.41 [facility] [address] [place] [address] 12/08/2023 Nalini Perica Tinea unguium B35.1 ; Pain in right toe(s) M79.674 and Pain in left toe(s) M79.675 [facility] [address] [place] [address] 05/21/2024 Nalini Perica Tinea unguium B35.1 ; Metatarsalgia, left foot M77.42 ; Pain in right toe(s) M79.674 ; Pain in left toe(s) M79.675 ; Xerosis of skin L85.3 ; PlantarFlexion of metatarsal of left foot M21.6X2 ; Other hammer toe(s) (acquired), left foot M20.42 ; Hammer toe of right foot M20.41 and Bursitis of intermetatarsal bursa of left foot M77.52 [facility] [address] [place] [address] 09/05/2023 Nalini Dyer [facility] [address] [place] [address] 09/05/2023 [facility]incarrington [facility] [address] [place] [address] 09/08/2023 Yaquelinzeyad Smith [facility] [address] [address] 09/14/2023 Nalini Connellya [facility] [address] [address] 02/06/2024 Yaquelinzeyad Smith [facility] [place] [address] [place] [address] 03/05/2024 Yaquelin Smith Assessments Encounter Date Diagnosis (ICD Code) Assessment Notes Treatment Notes Treatment Clinical Notes Section Notes 08/15/2023 Metatarsalgia, left foot (ICD-10 - M77.42) [...] (acquired), left foot (ICD-10 - M20.42) 08/15/2023 Hammer toe of right foot (ICD-10 - M20.41) 09/29/2023 Pain in left toe(s) (ICD-10 - M79.675) 09/13/2023 PlantarFlexion of metatarsal of left foot (ICD-10 - M21.6X2) 05/21/2024 Pain in left toe(s) (ICD-10 - M79.675) 05/21/2024 Xerosis of skin (ICD-10 - L85.3) 09/29/2023 Xerosis of skin (ICD-10 - L85.3) 09/13/2023 Other hammer toe(s) (acquired), left foot (ICD-10 - M20.42) 08/15/2023 Metatarsalgia, right foot (ICD-10 - M77.41) 09/13/2023 Hammer toe of right foot (ICD-10 [...] bursa of left foot (ICD-10 - M77.52) 09/29/2023 Other Patient Educated with: RICE THERAPY.pdf (RICE THERAPY.pdf) Patient Educated with: INJECTIONTHER APY.pdf (INJECTIONTHE RAPY.pdf) 05/21/2024 Other Patient Educated with: RICE THERAPY.pdf (RICE THERAPY.pdf) Patient Educated with: INJECTIONTHER APY.pdf (INJECTIONTHE RAPY.pdf) Plan Of Treatment Pending Test Test Name Order Date *Uric Acid, Serum 05/20/2022 *CBC With Differential/Platelet 05/20/20 22 ESR 05/20/2022 X ray : Foot, left 3V 05/20/2022 X ray : Foot, left 3V 09/13/2023 X ray : Foot, left 3V 09/29/2023 X ray : Foot, right 3V 01/27/2023 [id number]-[id number] NAIL, 6 OR MORE 11/03/2021 38962-WUMQMLF NAIL, 6 OR MORE 01/19/2022 31634, J0702- INJECT TENDON ORIGIN/INSER T 01/27/202351778, V8091-JHBEO/INJECT, JOINT/BURSA 0 07/02/2022 X ray : Ankle, right 3V 01/27/2023 Next Appt Details Provider Name:Nalini addison, 08/02/2024 02:45:00 PM, [address] [facility], [place], [address], Insurance Providers Payer Name Payer Address Payer Phone Subscriber Number Group Number Insured Name Patient Relationship to Insured Coverage Start Date Coverage End Date [facility] [employer] Claims [address] [place] [id number] Steven Subramanian Self - patient is the insured Medical (General) History Medical History History ICD Code Arthritis Depression Psoriasis/eczema Surgical History Surgery Date(Month/Year) ear tubes Hospitalization History Reason Date(Month/Year) [facility]- blood clot 07/2021 [facility] leg issue, cyst
--- OUTSIDE RECORDS SUMMARY | 2024-08-01 15:12 | XMS_ITS | Encounter Summary ---
Author Organization [employer] Address [address] [place] [address] Care Team Providers Care General Freight Agent Name Role Phone Name, Leland MIMS Primary Care Provider [phone] Reason for Visit * Reason Comments Med Refill Encounter Details Date Type Department Care Team ([facility] st Contact Info) Description 07/25/2024 Refill [facility] [address] [place], [place] [phone] Stacey Wade MD [address] [place] [address] Lumbago with sciatica, right side Social History Tobacco Use Types Packs/Day Years [...] Description 08/07/2024 1:15 PM EST Office Visit [facility] [address] [place] [address] Stacey Wade MD [address] [place] [address] 09/17/2024 10:15 AM EDT Office Visit [facility] [address] [place] [address] Name, MD Leland [address] [place] [address] documented as of this encounter Visit Diagnoses Diagnosis Lumbago with sciatica, right side documented in this encounter Additional Health Concerns Assessment Noted Time PHQ-9 Depression Total Score: 0 09/14/19 24 3:10 PM EDT documented as of this encounter Care Teams General Freight Agent Relationship Specialty Start Date End Date Lealnd Brandon MD [address] [place] [address] PCP - General Family Medicine 08/26/15 documented as of this encounter
--- OUTSIDE RECORDS SUMMARY | 2024-08-01 15:12 | XMS_ITS | Encounter Summary ---
Author Organization [employer] Address [address] [place] [address] Care Team Providers Care Germination Testing Manager Name Role Phone Name, Leland MIMS Primary Care Provider [phone] Encounter Details Date Type Department Care Team ([facility] st Contact Info) Description 03/24/2023 Telephone [facility] [address] [place], [place] [phone] Name, MD Leland [address] [place], [place] [phone] Social History Tobacco Use Types Packs/Day Years [...] Miscellaneous Notes * Telephone Encounter - Chika Terrence - 03/24/2023 3:38 PM EDT Tc from pt calling to advise PCP pt is currently admitted to [facility] and was found with blood clots to both legs. Any questions, contact pt at [phone] documented in this encounter Plan of Treatment Upcoming Encounters Date Type Department Care Team (Late st Contact Info) Description 08/07/2024 1:15 PM EST Office Visit [facility] [address] [place] [address] Stacey Wade MD [address] [place] [address] 09/17/2024 10:15 AM EDT Office Visit [address] [address] Name, MD Leland [address] [place] [address] documented as of this encounter Visit Diagnoses Not on filedocumented in this encounter Additional Health Concerns Assessment Noted Time PHQ-9 Depression Total Score: 0 09/07/19 23 1:16 PM EDT documented as of this encounter Care Teams Germination Testing Manager Relationship Specialty Start Date End Date Leland Brandon MD [address] [place] [address] PCP - General Family Medicine 08/26/15 documented as of this encounter
--- OUTSIDE RECORDS SUMMARY | 2024-08-01 15:13 | XMS_ITS | Data Portability ---
Author Organization [employer] Address [address] [place] [address] Care Team Providers Care Flange Machine Operator Name Role Phone [facility] Referring Provider [facility] Referring Provider Assessment No assessment recorded. Plan of Treatment Reminders Order Date Submit Date Provider Last Modified By Organization Details Last Modified Time Details Appointments None recorded. Lab None recorded. Referral None recorded. Procedures None recorded. Surgeries None recorded. Imaging None recorded. Medication Orders cephalexin 500 mg capsule 2023 024 [id number], [address] [place], [address], 4 20:15:29 cephalexin 500 mg capsule 2023 [...] Available Not Available No t Available omega 4-aeq-zro-fi sh oil 1,000 mg (120 mg-180 mg) [...] Updated DateTime 4 86 /min 18 /min 445729. 72 g 98.6 [degF] 98 % 98 % 154 mm[Hg] 94 mm[Hg] Not Available [employer] 4 20:11:37 Date Recorded Respiratory rate Oxygen saturation Oxygen saturation in Arterial blood by Pulse oximetry Body temperature Heart rate Systolic blood pressure Diastolic blood pressure Provider Name and Address Organization Details Last Updated DateTime 2 20 /min 94 % 94 % 97.7 [degF] 74 /min 125 mm[Hg] 75 mm[Hg] Not Available [employer] [facility] [employer] 2 07:41:40 Social History None recorded. Functional Status None recorded. Mental Status None recorded. Family History Nothing Reported. Medical History No medical history recorded. Past Encounters Encounter ID Performer Location Encounter Start Date Encounter Closed Date Diagnosis/Indication Diagnosis SNOMED-CT Code Diagnosis ICD10 Code Diagnosis Note [id number] Lucia Khoury MD [facility] [address] [place] [phone] 12/05/2021 07:41:38 02/10/2022 10:34:04 History of deep vein thrombosis 559070809 Z86.718 56 year old male with chronic [...] primary regarding why this change was made. [id number] Arsalan Vera MD [facility] [address] [place] [address]-099 0 06/23/2023 20:11:26 06/23/2023 22:45:58 Cellulitis of left lower limb [id number] 6024795 L03.116 Reports increased redness and swelling of LLE. On enoxaparin for history of DVT. No new swelling. Pulses normal per waste removalist. No fevers, chills, systemic symptoms. Plan for [...] [facility] - DOS PRIOR TO 2022 - DUAL ELIGIBLE (MEDICARE REPLACEMENT/ADV ANTAGE - HMO) Steven Subramanian [id number] Steven Subramanian 06/23/2023 1 [facility] - DOS ON OR AFTER 2022 - DUAL ELIGIBLE - GROUP HOME OPTIONS AND ONE CARE (MEDICARE REPLACEMENT/ADV ANTAGE - HMO) Steven Subramanian [id number] Steven Subramanian Notes Date Note Type Note [...] ................... ................... ................... ................... ................... ................... ........ Guide Visitor Note: Patient bilateral lower extremity pain times [...] ........ Disposition: Fulfilled Lucia Khoury MD [address] [facility], [place], [address], [employer] 12/05/2021 07:49:52 06/23/2023 text/html HPI: Chronic deep [...] ................... ................... ................... ................... ................... ................... ........ Guide Visitor Note From Gatito Rios: Pt co itchy redness on left lower extremity that is also painful. Pt denies fever nausea vomiting diarrhea. Baseline vitals assessed. Extremity redish warm to touch . No edema. [facility] contacted pics uploaded ?500mg keflex given po and RX called in . Pt education on signs indicating the ER. ................... ................... ................... ................... ................... ................... ................... ........ Disposition: Fulfilled Arsalan Vera MD [address] [facility], [place], [address], [employer] 06/23/2023 21:40:40
--- OUTSIDE RECORDS SUMMARY | 2024-08-01 15:13 | XMS_ITS | Clinical Summary ---
Author Organization [employer] Address [address] [facility] [address] [place] [address] Care Team Providers Care Combination Man Name Role Phone Name, Leland MIMS Primary Care Provider [phone] Allergies No known active allergies Medications * [...] of water. 60 tablet 3 024 Active hydroCHLOROthia zide 12.5 MG tablet Take 1 tablet by mouth in the morning. Active albuterol 108 (90 Base) MCG/ACT inhaler [...] daily. 48 mL 11 024 2024 Active Diclofenac Sodium 1 % gelIndications: Low back pain due to bilateral sciatica Use to affected area bid 60 g 025 Active DULoxetine (Cymbalta) [address] capsule TAKE 1 CAPSULE BY MOUTH TWICE DAILY. DO NOT BREAK, CRUSH, DISSOLVE OR CHEW 60 capsule 025 Active zolpidem (Ambien) 10 MG tabletIndicatio ns:Insomnia, unspecified type TAKE 1 TABLET BY MOUTH AT BEDTIME NEEDED FOR SLEEP 28 tablet 025 Active methocarbamol (Robaxin) 750 MG tablet Take 1 tablet (750 mg) by mouth 3 times daily for 10 days. 30 tablet 025 2024 Active cephalexin (Keflex) 500 MG capsule Take 1 capsule (500 mg) by mouth 3 times daily for 10 days. 30 capsule 025 2024 Active lisinopril 10 MG tablet Take 1 tablet (10 mg) by mouth Once per day. 90 tablet 1 025 2025 Active gabapentin (Neurontin) 800 MG tabletIndicatio ns:Chronic pain syndrome TAKE 1 TABLET BY MOUTH THREE TIMES DAILY 90 tablet 3 Active tiZANidine (Zanaflex) 2 MG tablet Take 1 tablet (2 mg) by mouth every 8 (eight) hours if needed for muscle spasms for up to 10 days. 30 tablet 025 2024 Active ibuprofen 600 MG tablet Take 1 tablet by mouth 2 times daily. 2024 Discontinued(T herapy completed) cyclobenzaprine (Flexeril) 10 MG tablet Take 1 tablet by mouth at bedtime. 2024 Discontinued(D uplicate order (will not trigger notification to Pharmacy)) lisinopril 10 MG tablet TAKE 1 TABLET BY MOUTH DAILY IN THE MORNING 90 tablet 1 024 2024 Discontinued(R eorder (will not trigger notification to Pharmacy)) gabapentin (Neurontin) 800 MG tabletIndicatio ns:Chronic pain syndrome TAKE 1 TABLET BY MOUTH THREE TIMES DAILY 90 tablet 3 024 2024 Discontinued(R eorder (will not trigger [...] 10 days. 40 tablet 025 2024 Discontinued zolpidem (Ambien) 10 MG tabletIndicatio ns:Insomnia, unspecified type TAKE 1 TABLET BY MOUTH AT BEDTIME NEEDED FOR SLEEP 28 tablet 025 2024 Discontinued predniSONE (Deltasone) 20 MG tablet Take 3 tablets (60 mg) by mouth Once per day for 3 days, THEN 2 tablets (40 mg) Once per day for 3 days, THEN 1 tablet (20 mg) Once per day for 3 days, THEN 0.5 tablets (10 mg) Once per day for 4 days. 20 tablet 025 2024 Discontinued(T herapy completed) methocarbamol (Robaxin) 750 MG tablet Take 1 tablet (750 mg) by mouth 3 times daily for 10 days. 30 tablet 025 2024 Discontinued(R eorder (will not trigger notification to Pharmacy)) dexAMETHasone (Decadron) 4 MG tablet Take 1 tablet (4 mg) by mouth with breakfast and with evening meal for 7 days. 14 tablet 025 2024 Discontinued Active Problems Problem Noted Date Diagnosed Date Low back pain due to bilateral sciatica 05/17/20 24 Assessment & Plan (06/15/2024 2:43 PM EST): I advised to use heat for affected area I will prescribe one more time dexamethasone I explain to patient is not a good medication to take for continuous churn buttermaker due to side effects (weight gain, osteoporosis, [...] increased redness, swelling or starts having fevers. Dyspnea on exertion 02/07/2024 Assessment & Plan [...] to the hospital, case was presented to [facility] I let them know patient should have a CTA to r/o pulmonary embolism Connell's cyst of knee, right 02/07/2024 Assessment & Plan (02/07/2024 3:06 PM EDT): I will refer him to orthopedics to address his pain Hammer toe of right foot 03/29/2023 023 Neuropathy 03/29/2023 03/29/2023 Other acquired deformities of left foot 03/29/20 23 03/29/2023 [employer] (current) use of opiate analgesic 03/1303/23/2023 Overview (03/23/2023): Narcotic contract signed 03/14/2014 Cigarette smoker 09/21/2022 Hard of hearing 09/21/2022 Impaired glucose tolerance 09/21/2022 Total perforation of tympanic membrane 3 Inversion of right nipple 09/06/2022 Primary osteoarthritis of both knees 05/25/2022 Esotropia 05/25/2022 Osteoarthritis of right ankle and foot Nocturnal enuresis 05/25/2022 Refractive error 04/16/2022 Exotropia, [...] 08/29/2015 Compression fracture of vertebral column 016 Idiopathic scoliosis 08/29/2015 Insomnia 08/29/2015 Severe obesity 08/29/2015 Chronic narcotic use 08/29/2015 Tobacco dependence syndrome 08/29/2015 Rotator cuff disorder 03/21/2015 Overview (08/01/2024): Right sided with decreased range of motion. 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 Constipation 02/02/2010 Knee pain [...] Encounters Date Type Department Care Team Description 08/01/2024 2:15 PM EST Office Visit [facility] [address] [place] [address] Name, MD Leland Cellulitis, unspecified cellulitis site (Primary Dx); Chronic pain syndrome; Tremor of both hands 07/26/2024 Telephone [facility] [address] [place] [address] NameLeland MD FYI 07/25/2024 Refill [facility] [address] [place] [address]652 Stacey Wade MD Lumbago with sciatica, right side 07/24/[address] [address] NameLeland MD REQUEST ER NOTES; Med Refill (Patient walked in requesting med refill for Dexamethasone 4mg patient stated he went to pharmacy to get medication and theres no medication in the pharmacy ) 07/24/[address] [address] Leland Brandon MD Verbal Order 07/24/[address] [address] Leland Brandon MD Nurse Triage 07/20/2024 Orders Only [facility] [address] [place] [address] Leland Brandon MD Severe low back pain (Primary Dx); Radicular leg pain 07/17/2024 Refill [facility] [address] [place] [address] Leland Brandon MD Insomnia, unspecified type 07/14/2024 12:00 PM EST Office Visit [facility] [address] [place] [address]338 NameLeland MD Severe low back pain (Primary Dx); Neurogenic claudication due to lumbar spinal stenosis 07/14/2024 Travel 07/06/2024 9:00 AM EST Office Visit [address] [address] NameLeland MD Neurogenic claudication due to lumbar spinal stenosis (Primary Dx); Radicular leg pain; Severe low back pain 07/06/2024 Travel 06/25/2024 Telephone [facility] [address] [place] [address] Keila Rojas, ANNITA Results 06/22/2024 3:45 PM EST Telemedicine [address] [address] Chrissie Cosme, DOMINIQUE Chronic joint pain (Primary Dx) 06/22/2024 Travel 06/20/2024 Refill [facility] [address] [place] [address] Leland Brandon MD 06/18/2024 Orders Only [facility] [address] [place] [address] Amber Ortiz MD 06/15/2024 1:40 PM EST Office Visit [facility] [address] [place] [address] Stacey Wade MD Low back pain due to bilateral sciatica (Primary Dx) 06/15/2024 Refill [facility] [address] [place] [address] Leland Brandon MD Insomnia, unspecified type 06/11/2024 Telephone [facility] [address] [place] [phone] Dave Cabrera MA Chart[employer] 05/26/2024 11:00 AM EST Office Visit [facility] [address] [place] [address]856 Ana Larios NP Low back pain due to bilateral sciatica (Primary Dx) 05/25/2024 Telephone [facility] [address] [place] [address] Leland Brandon MD Nurse Triage 05/25/2024 Telephone [facility] [address] [place] [address] 52441 Leland Brandon MD Med Refill 05/25/2024 Refill [facility] [address] [place] [address] Leland Brandon MD Chronic pain syndrome 05/21/2024 Refill [facility] [address] [place] [address] 67407 Leland Brandon MD Insomnia, unspecified type 05/17/2024 4:00 PM EST Office Visit [facility] [address] [place] [address] 18197 Amber Ortiz MD Low back pain due to bilateral sciatica (Primary Dx) 05/17/2024 Telephone [facility] [address] [place] [address] Keila Rojas RN EMR History 05/07/2024 Refill [facility] [address] [facility] [place] [address] Name, MD Leland from Last 3 Months Immunizations Name Administration [...] the past 12 months, has t he [employer], gas, oil or water company threatened to [...] Mass Index 40.31 08/01/2024 2:30 PM EST Plan of Treatment Upcoming Encounters Date Type Department Care Team (Late st Contact Info) Description 08/07/2024 1:15 PM EST Office Visit [facility] [address] [place], [place] [phone] Stacey Wade MD [address] [place] [address] 09/17/2024 10:15 AM EDT Office Visit [facility] [address] [place] [address] Name, MD Leland [address] [facility] [address] Health Maintenance Due Date Last Done Comments [...] Alcohol/Substance Use Screening 12/13/2024 12/14/2023 Tobacco Screening 08/01/2025 08/01/2024 DTaP/Tdap/Td Vaccines (2 - Td or Tdap) [...] to lumbar spinal stenosis Radicular leg pain XR SACRUM COCCYX 2+ VIEWS Routine 06/19/2024 8:32 AM EST Low back pain due to bilateral sciatica XR HIPS BILATERAL 3 OR 4 VIEWS WITH OR WITHOUT PELVIS Routine 06/19/2024 8:31 AM EST XR LUMBAR SPINE 2-3 VIEWS Routine 06/18/2024 4:40 PM EST Low back pain due to bilateral sciatica HEPATITIS C AB W/REFL TO HCV RNA, [...] Recently Relevant to Health Maintenance Results * MR Lumbar Spine w/o Contrast (07/16/2024 6:25 PM EST) Anatomical Region Laterality Modality Spine, L-spine Magnetic Resonan ce 07/16/2024 6:25 PM EST Narrative 07/17/2024 7:57 AM EST ? [facility] ?[address] ?[place] [address] ? Magnetic Resonance Report ? Signed ? Patient: Moris Francisco,Steven ?MR#: M ?? [id number] ? : 1965 ?Acct:[id number] ? Age/Sex: 59 / M ?ADM Date: 07/16/24 ? Loc: HO.MRI ? Attending Dr: Leland Brandon MD ? Ordering Physician: Leland Brandon MD ?? Date of Service: 07/16/24 ?? Procedure(s): MR lumbar spine wo con ?? Accession Number(s): [id number] ? cc: Leland Brandon MD ? EXAMINATION: [...] Greer MD ??07/17/2024 07:55 AM ?? EST ? Dictated By: ?Santana Cross MD ? Signed By: ?<Electronically signed by Santana Garvin MD in OV> ? 07/17/24 0755 ? DD/ 182 ? TD/TT: 07/16/24 1855 ? Sports Team Marketing Intern: ? Procedure Note Mery Saeed - 07/17/[address] [address] Magnetic Resonance Report Signed Patient: Michele Novak#: M [id number] : 1965Acct:[id number] Age/Sex: 59 / MADM Date: 07/16/24 Loc: HO.MRI Attending Dr: Leland Brandon MD Ordering Physician: Leland Brandon MD Date of Service: 07/16/24 Procedure(s): MR lumbar spine wo con Accession Number(s): [id number] cc: Leland Brandon MD EXAMINATION: MR LUMBAR SPINE WITHOUT CONTRAST CLINICAL [...] Santana Greer MD 07/17/2024 07:55 AM EST RP Dictated By: Santana Cross MD Signed By: <Electronically signed by Santana Garvin MDin OV> 07/17/24 0755 DD/ 1825 TD/TT: 07/16/24 1855 Sports Team Marketing Intern: us Leland Roma MIMS IMG MRI PROCEDURES Edited Result - Final * XR Sacrum Coccyx 2+ Views (06/19/2024 8:32 AM EST) Anatomical Region Laterality Modality Sacrum, Coccyx Radiographic Rasheeda ging 06/19/2024 8:32 AM EST Narrative 06/19/2024 8:34 AM EST ? [facility] ?[address] ?[place] [address] ?XRay Report ? Signed ? Patient: Steven Novak ?MR#: M ?? [id number] ? : 1965 ?Acct:[id number] ? Age/Sex: 59 / M ?ADM Date: 06/18/ ? Loc: HO.XRAY ? Attending Dr: Amber Ortiz MD ? Ordering Physician: Amber Ortiz MD ?? Date of Service: 06/18/24 ?? Procedure(s): XR sacrum coccyx min 2V ?? Accession Number(s): [id number] ? cc: Amber Ortiz MD; Name,Leland MIMS ? CLINICAL HISTORY: Bl hip pain [...] ? DD/ 1 ? TD/TT: 06/19/24831 ? Sports Team Marketing Intern: ? Procedure Note Danielhaydenspencersy, Image - 06/19/[address] [address] XRay Report Signed Patient: Michele Novak#: M [id number] : 1965Acct:[id number] Age/Sex: 59 / MADM Date: 06/18/24 Loc: HO.MAEGAN Attending Dr: Amber Ortiz MD Ordering Physician: Amber Otriz MD Date of Service: 06/18/24 Procedure(s): XR sacrum coccyx min 2V Accession Number(s): [id number] cc: Amber Ortzi MD; Name,Leland MIMS CLINICAL HISTORY: Bl hip [...] signed by Drew Germain MD in OV> 06/19/24 0833 DD/ 1 TD/TT: 01/07/25 0832 Sports Team Marketing Intern: us Amber Ortiz MD IMG XR PROCEDURES Edited Result - Final * XR Hips Bilateral 3 or 4 Views with or without Pelvis (06/19/2024 8:31 AM EST) Anatomical Region Laterality Modality Lower Extremities, Hip Bilateral Radiograp hic Imaging 06/19/2024 8:31 AM EST Narrative 06/19/2024 8:32 AM EST ? [facility] ?[address] ?[place] [address] ?XRay Report ? Signed ? Patient: Steven Novak ?MR#: M ?? [id number] ? : 1965 ?Acct:[id number] ? Age/Sex: 59 / M ?ADM Date: 06/18/24 ? Loc: HO.XRAY ? Attending Dr: Amber Ortiz MD ? Ordering Physician: Amber Ortiz MD ?? Date of Service: 06/18/24 ?? Procedure(s): XR hip RAINE min 3V w/wo pel ?? Accession Number(s): [id number] ? cc: Amber Ortzi MD; Name,Leland MIMS ? CLINICAL HISTORY: PAIN [...] in OV> ? 06/19/24 0832 ? DD/ 0831 ? TD/TT: 06/19/24 0831 ? Sports Team Marketing Intern: ? Procedure Note Mery Saeed - 06/19/2024 [place] [id number] [place] [address] XRay Report Signed Patient: Michele Novak#: M [id number] : 1965Acct:[id number] Age/Sex: 59 / MADM Date: 06/18/24 Loc: HO.ALENAAY Attending Dr: Amber Ortiz MD Ordering Physician: Amber Ortiz MD Date of Service: 06/18/24 Procedure(s): XR hip RAINE min 3V w/wo pel Accession Number(s): [id number] cc: Amber Ortiz MD; Name,Leland MIMS CLINICAL [...] in OV> 06/19/2432 DD/ 0 TD/TT: 06/19/24830 Sports Team Marketing Intern: us Amber Ortiz MD IMG XR PROCEDURES Edited Result - Final * XR Lumbar Spine 2-3 Views (06/18/2024 4:40 PM EST) Anatomical Region Laterality Modality Spine, L-spine Radiographic Rasheeda ging 06/18/2024 4:40 PM EST Narrative 06/18/2024 4:41 PM EST ? [facility] ?[address] ?[place] [address] ?XRay Report ? Signed ? Patient: Moris Francisco,Steven ?MR#: M ?? [id number] ? : 1965 ?Acct:[id number] ? Age/Sex: 59 / M ?ADM Date: /06/25 ? Loc: HO.XRAY ? Attending Dr: Amber Ortiz MD ? Ordering Physician: Stacey Wade MD ?? Date of Service: 06/18/24 ?? Procedure(s): XR lumbar spine 2-3V ?? Accession Number(s): [id number] ? cc: Stacey Wade MD; Name,Leland MIMS [...] DD/ 1640 ? TD/TT: 06/18/24 1640 ? Sports Team Marketing Intern: ? Procedure Note Donotuseinterpreter, Image - 06/18/2024 [place] [address] XRay Report Signed Patient: Michele Novak#: M [id number] : 1965Acct:[id number] Age/Sex: 59 / MADM Date: 06/18/24 Loc: ROLLY Attending Dr: Amber Ortiz MD Ordering Physician: Stacey Wade MD Date of Service: 06/18/24 Procedure(s): XR lumbar spine 2-3V Accession Number(s): [id number] cc: Stacey Wade MD; Name,Leland MIMS CLINICAL [...] 06/18/24 1640 DD/ 1640 TD/TT: 06/18/24 1640 Sports Team Marketing Intern: Stacey Maldonado MD IMG XR PROCEDURES Fin al Result * Hepatitis C Antibody with Reflex to HCV, RNA, Quantitative, Real-Time PCR (10/14/2023 11:05 AM EDT) Hepatitis C Antibody Nonreactive Nonreactive [facility] Comment:Antibodies to HCV no t detected; does not exclude early acuteHCV infection. Blood Venous blood specimen / Unknown 10/14/2023 11:05 AM EDT 10/14/2023 1:15 PM EDT us Leland Brandon MD LAB BLOOD ORDERABLES Final Resul t [facility] [address] [place] [phone] * HIV-1/2 Antigen and Antibodies, Fourth Generation, with Reflexes (10/14/2023 11:05 AM EDT) HIV AB/AG Nonreactive Nonreactive [facility] Comment:HIV-1 p24 Ag and/or HIV-1/HIV-2 Ab not detected.A test result that is nonreactive does not exclude thepossibility of exposure to or infection with HIV-1 and/orHIV-2. Nonreactive results in this assay for individualswith prior exposure to HIV-1 and/or HIV-2 may be due toantigen and antibody levels that are below the limit ofdetection of this assay.The MogreetniPerioSeal HIV Ag/Ab Combo assay result andsupplemental assay results should be interpreted inconjunction with the patient's clinical presentation,history and other laboratory results. If the results areinconsistent with clinical evidence, additional testing issuggested to confirm the result. Blood Venous blood specimen / Unknown 10/14/2023 11:05 AM EDT 10/14/2023 1:15 PM EDT us Leland Brandon MD LAB BLOOD ORDERABLES Final Resul t Performing Organization Address [facility] de Phone Number [facility] [address] [place] [phone] [phone] * (ABNORMAL) Lipid Panel, Standard (10/14/2023 11:05 AM EDT) Triglycerides 105 <150 mg/dL [facility] Comment:Desirable Triglyceri de: less than 150 mg/dLBorderline High Triglyceride 150-199 mg/dLHigh Triglyceride: 200-499 mg/dLVery High Triglyceride: greater than or equal to 5OO mg/dL Cholesterol 192 <200 mg/dL [facility] Comment:Desirable Cholestero l: less than 200 mg/dLBorderline High Cholesterol: 200-239 mg/dLHigh Cholesterol: greater than 239 mg/dL LDL Cholesterol Calculated 102(H) <100 mg/dL [facility] Comment:Desirable LDL: less than 100 mg/dLNear Optimal/Above Optimal LDL: 110- 129 mg/dLBorderline High LDL: 130-159 mg/dLHigh LDL: 160-189 mg/dLVery High LDL: greater than or equal to 190 mg/dL HDL Cholesterol 69 >40 mg/dL [facility] Comment:Desirable HDL: great er than 40 mg/dL Note: This HDL assay may give artificially low results in patients with liver disease. Blood Venous blood specimen / Unknown 10/14/2023 11:05 AM EDT 10/14/2023 1:15 PM EDT us Leland Brandon MD LAB BLOOD ORDERABLES Final Resul t Performing Organization Address [facility] Co de Phone Number [facility] [address] [place] [address] [phone] * Hm Colonoscopy (07/14/2023) Colonoscopy Normal Normal Comment:Normal Colonoscopy r epeat 10 years us Leland Brandon MD HEALTH MAINTENANCE Final Result from Last 3 Months or Most Recently Relevant to Health Maintenance [place] [address] [address] [place] [address] - [employer] Care Teams Combination Man Relationship Specialty Start Date End Date Name, MD Leland [address] [place] [phone] PCP - General Family Medicine 08/26/15
--- OUTSIDE RECORDS SUMMARY | 2024-08-01 15:13 | XMS_ITS | Clinical Summary ---
Author Organization [facility] Address [address] [place] [address] Care Team Providers Care Vehicle Controls Engineer Name Role Phone No, Pcp Primary Care [...] 1965 Hepatitis C Screening 1965 Sigmoidoscopy 1965 Pneumococcal Vaccine: 50+ Years (2 of 2 - PCV) 11/28/2016 11/29/2015 RSV Vaccine (60+ years old and patients) [...] Vaccine: Pediatric (0-5 Years) and At-Risk Patients (6-50 Years) Aged Out 11/29/2015 No longer eligible based on patient's age to complete this topic Zoster Vaccines Completed 08/26/2020, 06/25/2020 Hepatitis B Vaccines Aged Out No long er eligible based on patient's age to complete this topic Insurance [facility] Care Teams Vehicle Controls Engineer Relationship Specialty Start Date End Date No, Pcp HIREN PCP - General 01/29/22
--- OUTSIDE RECORDS SUMMARY | 2024-08-01 15:13 | XMS_ITS | Referral Summary ---
Author Organization [facility] Address [address] [place] [address] Care Team Providers Care Analysis Consultant Name Role Phone No, Pcp Primary Care [...] Treatment Not on file Insurance Care Teams Analysis Consultant Relationship Specialty Start Date End Date No, Pcp HIREN PCP - General 01/29/22
[2024-08-01 16:58] LABS: TSH reflex Free T4 0.69 uIU/mL (0.32-4.0)
== END 2024-08-01 15:04 | disposition home or self-care (01) ==
LOC: HO.HHCL 15:03
PROVIDERS: Visit Provider Internal Medicine Geriatric Medicine
DX: R25.1 Tremor, unspecified (principal)
CPT/HCPCS: 36415; 84443

== ENCOUNTER 2024-08-27 11:39 | Outpatient (AMB) | payer OTHER, SELFPAY ==
--- NOTE | 2024-08-27 11:44 | A.OFFVIS_ITS ---
Vital Signs 08/27/24 11:49 Height 6 ft Weight 293 lb 4 oz BMI 39.8 BP 126/56 L Blood Pressure Location Rt brachial Position Sitting Pulse 79 Pulse Source Pulse Oximeter Pulse Oximetry (%) 96 Oxygen Delivery Method Room Air Intake Visit Reasons: Low back pain Intake Note: Pain today 03/22 Pallet Stone Positioner Required: Yes Pallet Stone Positioner Language: Yardage Estimator Name: Luis Accompanied by: Self / Same As Patient Allergies No Known Allergies Allergy (Verified 07/12/24 14:25) HPI HPI Low back pain: Details: The patient is a 59-year-old male with complex medical history, including recent hospitalization for DVT, left lower extremity cellulitis and sepsis, presenting with chronic low back pain with worsening radiculopathy for the past five months. Denies any recent injury, trauma, or falls. He describes the pain as severe and stabbing, originating in the lower back and radiating down the left leg, affecting both anterior and posterior aspects. Reports chronic venous in sufficiency with previous history of DVTs and PEs and currently on Xarelto per patient. Numbness, tingling, and urinary incontinence accompany the pain, causing significant limitations to mobility, as he is unable to walk more than two minutes without a break. The patient is currently managing the condition with Tylenol and gabapentin. He is on methadone therapy for opioid dependence. Reports increased left leg pain due to an ongoing edema and pain with healing ulcers in anterior shins bilaterally without pathological discharge or tenderness. Currently, he is unable to pursue formal physical therapy due to significant low back pain with leg pain which limits his walking capacity and movements. Lumbar spine MRI was completed last month, noted for multilevel lumbar spondylosis resulting in grade 1 anterolisthesis L4-5 and multilevel central spinal canal and neuroforamina stenosis more conspicuous at L4-5 and to a lesser extent L2-3, L3-4 and L5-S1 levels. Epidural lipomatosis from L3 to sacrum. Patient denies previous spine surgical surgery or injections or recent physical or chiropractic therapy. - Onset: Several years ago, worsening in the past five months. - Quality: Stabbing, shooting, aching, numbness, tingling, burning. - Primary location: Low back. - Radiation: Down the entire left leg, affecting anterior, lateral, and posterior aspects. Intermittently affecting right leg. - Exacerbating Factors: Walking >2 min, bending forward or backward, climbing stairs - Alleviating Factors: Medications (partial relief). - Impact: Unable to perform daily activities without interruption; the significant impact on mobility and function, and sleep. - Affect: Pain causes significant limitations in mobility, daily activities and sleep. - Analgesia: Patient currently on Tylenol, gabapentin, tizanidine; current use of methadone for opioid dependence. - Adverse Effects: Reports difficulty in daily function, no specific side effects detailed from medications. - Activities of Daily Living: Severely limited; cannot walk more than two minutes without stopping. - Aberrant Drug-Related Behaviors: History of opioid use, currently managed with methadone prescribed through a program. [facility] Medical History COPD (chronic obstructive pulmonary disease) Dyspnea Nocturnal hypoxia Hyperlipidemia History of recurrent deep vein thrombosis (DVT) Chronic back pain Methadone maintenance therapy patient REAGAN (obstructive sleep apnea) Personal history of nicotine dependence Thrombosed external hemorrhoid Morbid obesity Hypertension Chronic pulmonary embolism Current use of anticoagulant therapy Surgical History Hx of colonoscopy History of excision of mass Family History Father History of prostate cancer Social History (Updated 08/27/24 @ 11:50 by Hortencia Rolle) Household Members: Friend(s) Alcohol intake: former Year quit: 2023 Patient Tobacco Use Status: Former Tobacco user Tobacco use type: Cigarette Years Smoked: onset 14, 1/2-1ppd x 42yrs, 30pyh Current occupational status: disabled Review of Systems Const Details: - Musculoskeletal: Reports severe low back pain with shooting pain and burning s ensation. - Neurological: Reports numbness and tingling in the left leg, leg weakness. - Genitourinary: Reports urinary incontinence. - Skin: Reports previous cellulitis and ulcers on anterior shins of both legs. All systems reviewed & are unremarkable except as noted in HPI and below Physical Exam Vital Signs: Last Vital Signs Pulse 79 08/27/24 11:49 BP 126/56 L 08/27/24 11:49 Pulse Ox 96 08/27/24 11:49 Oxygen Delivery Method Room Air 08/27/24 11:49 BMI result Body Mass Index 39.8 General: Appears afebrile. Alert and oriented. Mood and affect appropriate. Poor historian, forgetful at times. Follows and participates in conversation appropriately. Respiratory effort is unlabored. No cough. Reports dyspnea on exertion. Able to transition from sit to stand with assistance. Uses cane with ambulation. Ambulates with slow, antalgic gait with limping. Walks in flexed forward position to relieve back pain. General: Yes no CVA tenderness Back/Spine/Pelvis Other: Unable to perform lumbar ROM due to pain. Back: no CVA tenderness Cervical Spine: loss of normal cervical lordosis, cervical muscular tenderness, pain with cervical ROM and No Cervical spine tenderness Thoracic/Lumbar Spine: thoracic and lumbar spine normal to inspection, No Thoracic/lumbar spine scar(s), Lasegue's sign positive on the left and diffuse, pain with thoraco-lumbar ROM, paraspinal muscle tenderness, thoraco-lumbar ROM limited, No thoracic spinal tenderness and lumbar spinal tenderness (L3-S1) Pelvis: buttock tenderness on the left Sacroiliac joints: bilaterally tender to palpation Extrem General: Yes capillary refill normal, Yes no calf tenderness, No clubbing and Yes edema (BLE with healing ulcers to anterior shins bilaterally, no drainage) Results Reviewed Results Reviewed: MR LUMBAR SPINE WITHOUT CONTRAST 07/16/24 CLINICAL INFORMATION: Severe low back pain. Neurogenic claudication. COMPARISON: None available. TECHNIQUE: MRI of the lumbar spine was obtained using routine sequences without contrast. FINDINGS: Last rib-bearing vertebra labeled T12. No bone marrow STIR signal abnormality. Multilevel marginal osteophyte formation and disc desiccation from T12-L1 to L5-S1. Grade 1 anterolisthesis L4-5. There is a 12 mm intrinsic hyperintense T1 and T2 bone lesion on the posterior right L1 vertebra likely intraosseous hemangioma. The conus medullaris ends at superior endplate of L1 with normal signal. Prominent epidural fat in a circumferential fashion from L3 to the sacrum. T12-L1: Facet joint hypertrophy as well as ligamentum flavum. Broad-based disc bulging. Bilateral neuroforamina narrowing. No central spinal canal stenosis. L1-2: Broad-based disc bulging. Facet joint and ligamentum flavum hypertrophy. Reduced AP diameter of the thecal sac and the neural foramina likely encroaching the exiting nerve roots. L2-3: Broad-based disc bulging. Facet joint and ligamentum flavum hypertrophy. Reduced AP diameter of the thecal sac with the CSF effacement. Bilateral neuroforamina stenosis likely encroaching the neural elements both thecal sac and the exiting nerve roots. L3-4: Broad-based disc bulging. Facet joint and ligamentum flavum hypertrophy. CSF effacement of the thecal sac. Bilateral neuroforamina stenosis encroaching posterior compressing the exiting nerve roots and encroaching the neural elements of the thecal sac. L4-5: Grade 1 anterolisthesis, broad-based disc bulging, facet joint and ligamentum flavum hypertrophy resulting in CSF effacement of the thecal sac and bilateral neuroforamina stenosis, right greater than the left compressing the neural elements both thecal sac and exiting nerve roots. L5-S1: Prominent epidural fat. Broad-based disc bulging. Facet joint and ligamentum flavum hypertrophy. Reduced AP diameter of the thecal sac and the neural foramina likely encroaching the neural elements. Asymmetric volume loss of the right psoas muscle. Probable cystic lesions in the parapelvic left kidney. IMPRESSION: Multilevel lumbar spondylosis resulting in grade 1 anterolisthesis L4-5 and multilevel central spinal canal and neuroforamina stenosis more conspicuous at L4-5 and to a lesser extent L2-3, L3-4 and L5-S1 levels. Epidural lipomatosis from L3 to sacrum. XR lumbar spine 2-3V on 06/18/24 CLINICAL HISTORY: worsening chroic pain 4 views lumbar spine Comparison: None Findings: Normal alignment. No acute fractures . Grade 1 anterolisthesis of L4 on L5. Multilevel disc space narrowing and endplate osteophyte formation, as well as facet hypertrophy. IMPRESSION: No acute findings. XR hip RAINE min 3V w/wo pel on 06/19/24 CLINICAL HISTORY: PAIN Exam: AP pelvis with AP and frog-leg lateral views of both hips. Comparison: Right hip radiographs December 14, 2023. Findings: Bony alignment of the hip joints is anatomic. No acute fractures are identified. 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 No erosions. Sacroiliac joints and pubic symphysis are unremarkable. Impression: No fracture. Assessment & Plan Assessment & Plan (1) Spinal stenosis, lumbar region with neurogenic claudication: Code(s): M48.062 - Spinal stenosis, lumbar region with neurogenic claudication Category: Medical (2) Spinal stenosis, lumbar region with neurogenic claudication: Code(s): M48.062 - Spinal stenosis, lumbar region with neurogenic claudication Category: Medical (3) Methadone maintenance therapy patient: Comment: (hx opioid use) Code(s): F11.20 - Opioid dependence, uncomplicated Category: Medical (4) Chronic back pain: Code(s): M54.9 - Dorsalgia, unspecified; G89.29 - Other chronic pain Category: Medical (5) Varicose veins of left lower extremity with inflammation: Comment: 06/29/2024 - left small saphenous vein radiofrequency ablation Code(s): I83.12 - Varicose veins of left lower extremity with inflammation Category: Medical (6) Lumbar degenerative disc disease: Code(s): M51.369 - Other intervertebral disc degeneration, lumbar region without mention of lumbar back pain or lower extremity pain Category: Medical (7) Lumbosacral spondylosis: Code(s): M47.817 - Spondylosis without myelopathy or radiculopathy, lumbosacral region Category: Medical Plan Neurosurgical evaluation to address significant spinal stenosis related symptoms with neurogenic claudication. Medrol dose pack is provided for symptom management while awaiting neurosurgical consultation for minimally invasive intervention. Side effects and precautions were discussed with patient. Physical therapy is inadvisable given the current acute pain status with limited walking capacity and limited ROM due to moderate-severe pain. All questions and concerns have been answered and patient agreed with the plan. Follow up after Neurosurgery evaluation and sooner as needed. Patient was informed and verbally consented to the use of an ambient scribe for clinic note documentation during this visit. Orders: Referrals Neuro Spine Referral M48.062 - Spinal stenosis, lumbar region with neurogenic claudication Medications: New methylprednisolone (Medrol (Pato)) PO PER PKG DIR 21 ea 0RF pain M48.062 - Spinal stenosis, lumbar region with neurogenic claudication Coding Level of Care Code New Pt Level 4 (68267) Complex EM visit Add On G2211 Diagnoses Spinal stenosis, lumbar region with neurogenic claudication M48.062 Methadone maintenance therapy patient F11.20 Chronic back pain M54.9; G89.29 Varicose veins of left lower extremity with inflammation I83.12 Lumbar degenerative disc disease M51.369 Lumbosacral spondylosis M47.817
[2024-08-27 11:49] VITALS: BP 126/56; PULSE 79; O2SAT 96; BMI 39.8
--- OUTSIDE RECORDS SUMMARY | 2024-08-27 13:52 | XMS_ITS | Encounter Summary ---
Author Organization [employer] Address [address] 7t [place] [address] Care Team Providers Care Buggy Loader Name Role Phone Name, Leland MIMS Primary Care Provider [phone] Encounter Details Date Type Department Care Team (Late st Contact Info) Description 08/07/2024 1:15 PM EST Office Visit [facility] [address] [place], [place] [phone] Stacey Wade MD [address] [place] [address] Cellulitis of left lower extremity (Primary Dx); Neurogenic claudication due to lumbar [...] Sign Reading Time Taken Comments Blood Pressure 140/72 08/07/2024 1:32 PM EST Pulse 93 08/07/2024 1:32 PM EST Temperature 35.9 ??C (96.7 ??F) 08/07/2024 1:32 PM ES T Respiratory Rate 18 08/07/2024 1:32 PM EST Oxygen Saturation 96% 08/07/2024 1:32 PM EST Inhaled Oxygen Concentration - - Weight 138 kg (304 lb 6.4 oz) 08/07/2024 1:32 PM EST Height 182.9 cm (6') 08/07/2024 1:32 PM EST Body Mass Index 41.28 08/07/2024 1:32 PM EST documented in this encounter Progress Notes * Stacey Maldonado MD - 08/07/2024 1:15 PM EST Images from the original note were not included. SUBJECTIVE: Steven Singh is a 59 y.o. year old male who presents for HDF . [facility] (07/23/24-07/24/24) Patient with PMH including unprovoked DVTs/PE on Lovenox, presented for evaluation of lower extremity pain. Started on cefazolin for left lower extremity cellulitis. Transitioned to oral cephalexin once improved. Discharged home to follow up with PCP. Medication changes that occurred during hospitalization include: Added Cephalexin mono 500 mg every 12 hours x 6 days Changed: none Discontinued: none Acute Concerns: Patient reports he still has erythema, warmth sensation on his legs and pain around lesions on his legs Patient reports he has severe lower back pain 10/10 that radiates to both legs and is challenging for him for him to ambulate because of this, patient has been trying with multiple medications but does not have relief, he notes he has been referred to pain management he is waiting for an appointment Social History Social History Narrative Not on file Patient Active Problem List Diagnosis Acute deep vein thrombosis (DVT) of femoral vein of right lower extremity ([facility]/HCC) Anxiety Primary osteoarthritis of both knees Chronic deep vein thrombosis (DVT) of left lower extremity ([facility]/HCC) Chronic pain Chronic pain syndrome Chronic peripheral venous hypertension Compression fracture of vertebral column ([facility]/HCC) Constipation Depressive disorder Rotator cuff disorder Esotropia HTN (hypertension) Foot pain Heel pain Idiopathic scoliosis Osteoarthritis of right ankle and foot Insomnia Migraine without aura, not refractory Severe obesity ([facility]/HCC) Chronic narcotic use Nocturnal enuresis Opioid dependence ([facility]/HCC) Obstructive sleep apnea syndrome Neurogenic claudication due to lumbar spinal stenosis Recurrent deep vein thrombosis ([facility]/HCC) Recurrent major depression in partial remission ([facility]) Swelling of lower limb 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 ([facility]/HCC) Inversion of right nipple Cigarette smoker Guttate psoriasis Hard of hearing Knee pain Impaired glucose tolerance Posttraumatic stress disorder Total perforation of tympanic membrane Refractive error Exotropia, right eye superintendent terminal (current) use of opiate analgesic Hammer toe of right foot Neuropathy Other acquired deformities of left foot Dyspnea on exertion Connell's cyst of knee, right Claustrophobia Cellulitis Low back pain due to bilateral sciatica Chronic prescription opiate use No family history on file. Review of Systems Constitutional: Negative. HENT: Negative. Respiratory: Negative. Cardiovascular: Negative. Musculoskeletal: Positive for arthralgias, back pain and myalgias. OBJECTIVE: Vitals: 08/07/24 1332 BP: (!) 140/72 BP Location: Left arm Patient Position: Sitting BP Cuff Size: Large adult Pulse: 93 Resp: 18 Temp: 96.7 ??F (35.9 ??C) TempSrc: Oral SpO2: 96% Weight: 304 lb 6.4 oz (138 kg) Height: 6' (1.829 m) Physical Exam Constitutional: Appearance: Normal appearance. Cardiovascular: Rate and Rhythm: Normal rate and regular rhythm. Pulmonary: Effort: Pulmonary effort is normal. Breath sounds: Normal breath sounds. Abdominal: General: Abdomen is flat. Palpations: Abdomen is soft. Musculoskeletal: Right lower leg: No edema. Left lower leg: No edema. Skin: Comments: Erythema and warmth sensation around crusted lesions Neurological: Mental Status: He is alert. Follow [...] if needed for wheezing. 18 g 11 Anoro Ellipta 62.5-25 MCG/ACT aerosol powder Inhale 1 puff Once per day. cephalexin (Keflex) 500 MG capsule Take 1 capsule (500 mg) by mouth 3 times daily for 10 days. 30 capsule 0 Diclofenac Sodium 1 % gel Use to affected area bid 60 g 0 docusate sodium (Colace) 100 MG capsule TAKE 1 CAPSULE BY MOUTH TWICE A DAY 180 capsule 3 DULoxetine (Cymbalta) [address] capsule TAKE 1 CAPSULE BY MOUTH TWICE DAILY. DO NOT BREAK, CRUSH, DISSOLVE OR CHEW 60 capsule 0 Elastic Bandages & Supports (Medical Compression Stockings) [...] 1 tablet by mouth in the morning. lisinopril 10 MG tablet Take 1 tablet (10 mg) by mouth Once per day. 90 tablet 1 methadone (Dolophine) 10 MG/5ML solution 105 mg once a day Misc. Devices (Pulse Oximeter) mis to check oxygen mometasone (Elocon) 0.1 % ointment APPLY TOPICALLY EVERY DAY IN THE MORNING 45 g 3 Naloxone HCl (NARCAN NA) Administer into affected nostril(s). 0.1mg intra-nasal route in one nostril, may repeat every two to three minutes as needed, alternating nostrils with each dose Mtuwzjfz-Yzowwtramf-Lyfppdrzj (Triple Antibiotic) 3.5-400-5000 ointment Apply thin layer to affected skin 14 g 2 sennosides (Senokot) 8.6 MG tablet take 1 tablet by oral route 2 times every day as needed for constipation tiZANidine (Zanaflex) 2 MG tablet Take 1 tablet (2 mg) by mouth every 8 (eight) hours if needed formuscle spasms for up to 10 days. 30 tablet 0 Varenicline Tartrate, Starter, (Chantix Starting Month ) [...] AT BEDTIME NEEDED FOR SLEEP 28 tablet 0 [DISCONTINUED] dexAMETHasone (Decadron) 4 MG tablet Take 1 tablet (4 mg) by mouth with breakfast and with evening meal for 7 days. 14 tablet 0 [DISCONTINUED] gabapentin (Neurontin) 800 MG tablet TAKE 1 TABLET BY MOUTH THREE TIMES DAILY 90 tablet 3 [DISCONTINUED] ibuprofen 600 MG tablet Take 1 tablet by mouth 2 times daily. [DISCONTINUED] lisinopril 10 MG tablet TAKE 1 TABLET BY MOUTH DAILY IN THE MORNING 90 tablet 1 [DISCONTINUED] methocarbamol (Robaxin) 750 MG tablet Take 1 tablet (750 mg) by mouth 3 times daily for 10 days. 30 tablet 0 [DISCONTINUED] varenicline (Chantix) 1 MG tablet Take 1 tablet (1 mg) by mouth 2 times daily. Take with full glass of water. 60 tablet 3 No current facility-administered medications on file prior to visit. Problem List Items Addressed This Visit Cellulitis - Primary Patient already has had 2 courses of cephalexin, I decided to prescribe for him Bactrim twice a dayfor 10 days I milieu counselor patient that if problem persists or is worse he should go to the hospital to be evaluated Relevant Medications sulfamethoxazole-trimethoprim (Bactrim DS) 800-160 MG tablet mupirocin (Bactroban) 2 % ointment Neurogenic claudication due to lumbar spinal stenosis I will prescribe for patient dexamethasone 4 mg twice a day for 7 days I will prescribe for patient baclofen 20 mg every 8 hours, patient is aware of side effects and remains, he knows he cannot drive or do any activity that requires his concentration while on this medication Follow-up with pain management Relevant Medications dexAMETHasone (Decadron) 4 MG tablet baclofen (Lioresal) 20 MG tablet documented in this encounter Miscellaneous Notes * Assessment & Plan Note - Stacey Maldonado MD - 08/07/2024 4:56 PM EST Associated Problem(s): Cellulitis Patient already has had 2 courses of cephalexin, I decided to prescribe for him Bactrim twice a dayfor 10 days I milieu counselor patient that if problem persists or is worse he should go to the hospital to be evaluated * Assessment & Plan Note - Stacey Maldonado MD - 08/07/2024 4:55 PM EST Associated Problem(s): Neurogenic claudication due to lumbar spinal stenosis I will prescribe for patient dexamethasone 4 mg twice a day for 7 days I will prescribe for patient baclofen 20 mg every 8 hours, patient is aware of side effects and remains, he knows he cannot drive or do any activity that requires his concentration while on this medication Follow-up with pain management documented in this encounter Plan of Treatment Upcoming Encounters Date Type Department Care Team (Late st Contact Info) Description 08/30/2024 10:00 AM EDT Office Visit [facility] [address] [place] [address] Name, [place] [address] 09/17/2024 10:15 AM EDT Office Visit [address] [address] Name, [place] [address] documented as of this encounter Visit Diagnoses Diagnosis Cellulitis of left lower extremity- Primary Neurogenic claudication due to lumbar spinal stenosis Spinal stenosis of lumbar region documented in this encounter Additional Health Concerns Assessment Noted Time PHQ-9 Depression Total Score: 0 09/14/19 24 3:10 PM EDT documented as of this encounter Care Teams Buggy Loader Relationship Specialty Start Date End Date Name, MD Leland [address] [place] [id number] PCP - General Family Medicine 08/26/15 documented as of this encounter
--- OUTSIDE RECORDS SUMMARY | 2024-08-27 13:52 | XMS_ITS | Encounter Summary ---
Author Organization [employer] Address [address] 7[address] [place] [address] Care Team Providers Care Energy Sales Broker Name Role Phone Name, Leland MIMS Primary Care Provider [phone] Encounter Details Date Type Department Care Team ([facility] st Contact Info) Description 03/24/2023 Telephone [facility] [address] [place], [place] [phone] Name, MD Leland [address] [place], [place] [phone] Social History Tobacco Use Types Packs/Day Years [...] advise PCP pt is currently admitted to [facility] and was found with blood clots to both legs. Any questions, contact pt at [phone] documented in this encounter Plan of Treatment Upcoming Encounters Date Type Department Care Team (Late st Contact Info) Description 08/30/2024 10:00 AM EDT Office Visit [facility] [address] [place] [phone] NameLeland MD [address] [place] [address] 09/17/2024 10:15 AM EDT Office Visit [address] [address] Name, MD Leland [address] [place] [address] documented as of this encounter Visit Diagnoses Not on filedocumented in this encounter Additional Health Concerns Assessment Noted Time PHQ-9 Depression Total Score: 0 09/07/19 23 1:16 PM EDT documented as of this encounter Care Teams Energy Sales Broker Relationship Specialty Start Date End Date Leland Brandon MD [address] [place] [address] PCP - General Family Medicine 08/26/15 documented as of this encounter
--- OUTSIDE RECORDS SUMMARY | 2024-08-27 13:52 | XMS_ITS | Encounter Summary ---
Author Organization [employer] Address [address] [facility] 7t [place] [address] Care Team Providers Care Wax Pot Tender Name Role Phone Name, Leland MIMS Primary Care Provider [phone] Reason for Visit * Reason Comments Transition Of Care (Tcm) HDF scheduled Encounter Details Date Type Department Care Team ([facility] st Contact Info) Description 08/17/2024 Patient Outreach [facility] 230 [place], [place] [phone] Name, MD Leland [address] [place] [address] Transition Of Care (Tcm) (HDF scheduled) Social History Tobacco Use Types Packs/Day Years [...] as of this encounter Miscellaneous Notes * Significant Event - Sandy Louie - 08/17/2024 10:24 AM EST 08/17/24 1022 Hospital Discharges and Admission for [facility] Type of Visit Hospital Admission Date of Admission/Visit 08/13/24 Date of Discharge 08/16/24 Facility [facility] Diagnosis DVT/Cellulitis Disposition Discharged Home Follow-Up Actions Follow-Up Needed Provider appointment Follow-Up Outcome Spoke to Patient Initial Contact Date 08/17/24 GERBER Delgado placed outbound call to patient for HDF outreach. Patient's name and were confirmed. Patient educated on the importance of follow up with provider following inpatient admission. Patientoffered an HDF appt. Patient is agreeable to an appointment and has been scheduled for 08/30/24 at 10:00 with Name Insurance verified prior to scheduling. Patient advised to bring to appointment a photo id and insurance card. Patient also notified that a health center pharmacist will be reaching outto them via telephone prior to their scheduled appointment in order to review their medications in preparation for their appointment. Patient provided with education on contacting the Health Center with any questions or concerns prior to the scheduled appointment. Patient educated on extended clinic hours on Mondays and Wednesdays, and Walk-In Urgent Care Located in [facility]. Patient providedwith after-hours line for [facility], , which offer night time triage service and option to transfer to stone belt sander provider if needed. [facility] discharge summary has been scanned into patient chart for review. documented in this encounter Plan of Treatment Upcoming Encounters Date Type Department Care Team (Late st Contact Info) Description 08/30/2024 10:00 AM EDT Office Visit [facility] [address] [place] [phone] NameLeland MD [address] [place] [address] 09/17/2024 10:15 AM EDT Office Visit [facility] [address] [place] [address] NameLeland MD [address] [place] [address] documented as of this encounter Visit Diagnoses Not on filedocumented in this encounter Additional Health Concerns Assessment Noted Time PHQ-9 Depression Total Score: 0 09/14/19 24 3:10 PM EDT documented as of this encounter Care Teams Wax Pot Tender Relationship Specialty Start Date End Date NameLeland MD [address] [place] [address] [phone] PCP - General Family Medicine 08/26/15 documented as of this encounter
--- OUTSIDE RECORDS SUMMARY | 2024-08-27 13:52 | XMS_ITS | Encounter Summary ---
Author Organization [employer] Address [address] [facility] 7t [place] [address] Care Team Providers Care Auditor Medical Claims Name Role Phone Name, Leland MIMS Primary Care Provider [phone] Reason for Visit * Reason Onset Date Comments Nurse Triage 08/06/2024 Encounter Details Date Type Department Care Team ([facility] st Contact Info) Description 08/06/2024 Telephone [facility] 230 [place] [address] Name, MD Leland [address] [place] [address] Nurse Triage Social History Tobacco Use Types [...] encounter Miscellaneous Notes * Telephone Encounter - Iris Lawson RN - 08/06/2024 3:03 PM EST Triage call with [facility] aerial photograph interpreter ID [id number] Pt is called several times and call is dropped. Last call obtained Pt is reminded of Hospital follow apt 08/07/[address] Woodall at 115pm. Pt is advised to speak to MD tomorrow about concerns. Pt agrees with this plan. Insurance is verified as active. Protocol Used: Leg Pain (Adult) Protocol-Based Disposition: Home Care Positive Triage Question: * Leg pain * All higher-acuity triage questions were negative Care Advice Discussed: * Reassurance and Education - Leg Pain * Pain Medicines * Pain Medicines - Extra Notes and Warnings * Reasons To Call Back - Moderate pain (such as limping) lasts more than 3 days - Mild pain lasts more than 7 days - Signs of infection occur (such as spreading redness, warmth, fever) - You become worse * Telephone Encounter - Vic Finnegan - 08/06/2024 2:22 PM EST Symptoms: Leg Pain - Not From Injury, Leg Swelling - Not From Injury, Back Pain - Not From Injury Outcome: Transfer to a nurse or provider NOW! Reason: Age over 30: sudden AND severe upper back pain The caller accepted this outcome. documented in this encounter Plan of Treatment Upcoming Encounters Date Type Department Care Team (Late st Contact Info) Description 08/30/2024 10:00 AM EDT Office Visit [facility] [address] [place] [address] Name, MD Leland [address] [place] [address] 09/17/2024 10:15 AM EDT Office Visit [facility] [address] [place] [address] NameLeland MD [address] [place] [address] documented as of this encounter Visit Diagnoses Diagnosis Osteoarthritis of right ankle and foot Swelling of lower limb documented in this encounter Additional Health Concerns Assessment Noted Time PHQ-9 Depression Total Score: 0 09/14/19 24 3:10 PM EDT documented as of this encounter Care Teams Auditor Medical Claims Relationship Specialty Start Date End Date Leland Brandon MD [address] [place] [address] PCP - General Family Medicine 08/26/15 documented as of this encounter
--- OUTSIDE RECORDS SUMMARY | 2024-08-27 13:52 | XMS_ITS | Encounter Summary ---
Author Organization [employer] Address [address] [facility] 7t [place] [address] Care Team Providers Care Furnace Filler Name Role Phone Name, Leland MIMS Primary Care Provider [phone] Reason for Visit * Reason Onset Date Comments Med Refill 08/16/2024 Encounter Details Date Type Department Care Team ([facility] st Contact Info) Description 08/16/2024 Refill [facility] 230 [place] [address] Name, MD Leland [address] [place] [address] Insomnia, unspecified type Social History Tobacco Use [...] Telephone Encounter - Serenity Vogt LPN - 08/16/2024 3:57 PM EST CREATIVE ART THERAPIST checked on 08/16/24. Next appointment 09/17/24. * Telephone Encounter - Loi Cobos - 08/16/2024 3:54 PM EST TC from pt requesting medication refill. Medications needing refill : zolpidem (Ambien) 10 MG tablet To be sent to: [facility] - [place], [place] - [address] [place] [address] documented in this encounter Plan of Treatment Upcoming Encounters Date Type Department Care Team (Late st Contact Info) Description 08/30/2024 10:00 AM EDT Office Visit [facility] [address] [place] [address] Name, MD Leland 230 [facility] [place] [address] 09/17/2024 10:15 AM EDT Office Visit [facility] [address] [place] [address] Name, MD Leland [address] [place] [address] documented as of this encounter Visit Diagnoses Diagnosis Insomnia, unspecified type documented in this encounter Additional Health Concerns Assessment Noted Time PHQ-9 Depression Total Score: 0 09/14/19 24 3:10 PM EDT documented as of this encounter Care Teams Furnace Filler Relationship Specialty Start Date End Date Name, MD Leland [address] [place] [address] PCP - General Family Medicine 08/26/15 documented as of this encounter
--- OUTSIDE RECORDS SUMMARY | 2024-08-27 13:52 | XMS_ITS | Encounter Summary ---
Author Organization [employer] Address [address] [facility] 7t [place] [address] Care Team Providers Care Cell Maker Name Role Phone Name, Leland MIMS Primary Care Provider [phone] Reason for Visit * Reason Comments Med Refill Encounter Details Date Type Department Care Team ([facility] Contact Info) Description 02/21/2023 Refill [facility] [address] [place] [address] [phone] NameLeland MD [address] [place] [address] [phone] Insomnia, unspecified type Social History Tobacco Use [...] Upcoming Encounters Date Type Department Care Team ([facility] Contact Info) Description 08/30/2024 10:00 AM EDT Office Visit [facility] [address] [place] [address] [phone] Name, MD Leland [address] [place] [address] [phone] 09/17/2024 10:15 AM EDT Office Visit [facility] 230 [place] [address] Name, MD Leland [address] [place] [address] documented as of this encounter Visit Diagnoses Diagnosis Insomnia, unspecified type documented in this encounter Additional Health Concerns Assessment Noted Time PHQ-9 Depression Total Score: 0 09/07/19 23 1:16 PM EDT documented as of this encounter Care Teams Cell Maker Relationship Specialty Start Date End Date Name, MD Leland [address] [place] [phone] PCP - General Family Medicine 08/26/15 documented as of this encounter
--- OUTSIDE RECORDS SUMMARY | 2024-08-27 13:52 | XMS_ITS | Encounter Summary ---
Author Organization [employer] Address [address] 7[address] [place] [address] Care Team Providers Care Carton Liner Name Role Phone Name, Leland MIMS Primary Care Provider [phone] Encounter Details Date Type Department Care Team (Latest Contact Info) Description 08/07/2024 Travel Social History Tobacco Use Types Packs/Day [...] Description 08/30/2024 10:00 AM EDT Office Visit [facility] [address] [place] [phone] NameLeland MD [address] [place] [address] 09/17/2024 10:15 AM EDT Office Visit [address] [address] Name, MD Leland [address] [place] [address] documented as of this encounter Visit Diagnoses Not on filedocumented in this encounter Additional Health Concerns Assessment Noted Time PHQ-9 Depression Total Score: 0 09/14/19 24 3:10 PM EDT documented as of this encounter Care Teams Carton Liner Relationship Specialty Start Date End Date NameLeland MD [address] [place] [address] PCP - General Family Medicine 08/26/15 documented as of this encounter
--- OUTSIDE RECORDS SUMMARY | 2024-08-27 13:52 | XMS_ITS | Encounter Summary ---
Author Organization [employer] Address [address] [facility] 7t [place] [address] Care Team Providers Care Student Life Coordinator Name Role Phone Name, Leland MIMS Primary Care Provider [phone] Reason for Visit * Reason Onset Date Comments Hospital Follow-up 08/17/2024 Encounter Details Date Type Department Care Team ([facility] st Contact Info) Description 08/17/2024 Telephone [facility] 230 [place] [address] Name, MD Leland 230 [place] [address] Hospital Follow-up Social History Tobacco Use Types Packs/Day Years [...] encounter Miscellaneous Notes * Telephone Encounter - Tor Chun - 08/17/2024 10:08 AM EST Tc from pt requesting a HDF appt. Hospital: [facility] Date of admission: 08/12/24 Discharge date: 08/16/24 Diagnosed: blood clot in left leg documented in this encounter Plan of Treatment Upcoming Encounters Date Type Department Care Team (Late st Contact Info) Description 08/30/2024 10:00 AM EDT Office Visit [facility] [address] [place] [address] Name, MD Leland [address] [place] [phone] 09/17/2024 10:15 AM EDT Office Visit [facility] [address] [place] [phone] NameLeland MD [address] [place] [phone] documented as of this encounter Visit Diagnoses Not on filedocumented in this encounter Additional Health Concerns Assessment Noted Time PHQ-9 Depression Total Score: 0 09/14/19 24 3:10 PM EDT documented as of this encounter Care Teams Student Life Coordinator Relationship Specialty Start Date End Date Name, MD Leland 230 [place] [address] PCP - General Family Medicine 08/26/15 documented as of this encounter
--- OUTSIDE RECORDS SUMMARY | 2024-08-27 13:52 | XMS_ITS | Encounter Summary ---
Author Organization [employer] Address [address]t [place] [address] Care Team Providers Care Associate Director Of Nursing Name Role Phone Name, Leland MIMS Primary Care Provider [phone] Encounter Details Date Type Department Care Team (Late st Contact Info) Description 07/19/2023 Abstract [facility] MEDICINE [address] [place] [address] Name, MD Leland [address] [place], [place] [phone] Social History Tobacco Use Types Packs/Day Years [...] Description 08/30/2024 10:00 AM EDT Office Visit [address] [address] NameLeland MD [address] [place] [address] 09/17/2024 10:15 AM EDT Office Visit [address] [address] NameLeland MD [address] [place] [address] documented as of this encounter Procedures Procedure Name Priority Date/Time Associated Diagnosis Comments COLONOSCOPY Routine 07/14/2023 documented in this encounter Results * Colonoscopy (07/14/2023) Colonoscopy Normal Normal Comment:Normal Colonoscopy r epeat 10 years Leland Name HEALTH MAINTENANCE Final Result documented in this encounter Visit Diagnoses Not on filedocumented in this encounter Additional Health Concerns Assessment Noted Time PHQ-9 Depression Total Score: 0 09/07/19 23 1:16 PM EDT documented as of this encounter Care Teams Associate Director Of Nursing Relationship Specialty Start Date End Date NameLeland MD [address] [place] [address] PCP - General Family Medicine 08/26/15 documented as of this encounter
--- OUTSIDE RECORDS SUMMARY | 2024-08-27 13:52 | XMS_ITS | Encounter Summary ---
Author Organization [employer] Address [address] [place] [address] Care Team Providers Care Crop Grain Or Livestock Farmer Name Role Phone Name, Leland MIMS Primary Care Provider [phone] Reason for Visit * Reason Comments Leg Pain Encounter Details Date Type Department Care Team (Late st Contact Info) Description 08/20/2024 3:20 PM EDT Office Visit [facility] [address] [place] [phone] Name, MD Leland [address] [place] [phone] Left leg pain (Primary Dx); Presence of IVC filter; Recurrent deep vein thrombosis (CMS/HCC); Cellulitis of left lower extremity; Ulcer of left lower leg associated with varicose veins (CMS/HCC); Venous stasis dermatitis of both lower extremities; Hand eczema Social History Tobacco Use Types Packs/Day Years [...] Sign Reading Time Taken Comments Blood Pressure 128/73 08/20/2024 3:12 PM EDT Pulse 87 08/20/2024 3:12 PM EDT Temperature 36.6 ??C (97.9 ??F) 08/20/2024 3:12 PM ED T Respiratory Rate 20 08/20/2024 3:12 PM EDT Oxygen Saturation 98% 08/20/2024 3:12 PM EDT Inhaled Oxygen Concentration - - Weight 134 kg (294 lb 12.8 oz) 08/20/2024 3:12 P M EDT Height 182.9 cm (6') 08/20/2024 3:12 PM EDT Body Mass Index 39.98 08/20/2024 3:12 PM EDT documented in this encounter Progress Notes * Leland Brandon MD - 08/20/2024 3:20 PM EDT Subjective Patient ID: Steven Singh is a 59 y.o. male who presents for Leg Pain. Patient comes for a follow-up visit. Since his last appointment he was hospitalized again at [facility]. He presented with worsening left leg pain, redness, he was found to have extensive left leg DVT despite the use of Lovenox. He has failed multiple other anticoagulants in the past. The patient requiredplacement of IVC filter for prevention of pulmonary embolism. [facility] He is now on Xarelto for anticoagulation. The patient has a small ulcer on the left calf area. He was discharged on p.o. Keflex for possible left leg cellulitis. He does not have any left leg redness or edema at the time of his visit today. Discharge summary is available for review. Review of Systems Constitutional: Negative for chills, fatigue and fever. HENT: Negative for sore throat. Respiratory: Negative for cough, chest tightness and shortness of breath. Cardiovascular: Negative for chest pain and palpitations. See HPI Gastrointestinal: Negative for abdominal pain and blood in stool. Visit Vitals BP 128/73 (BP Location: Left arm, Patient Position: Sitting, BP Cuff Size: Large adult long) Pulse 87 Temp 97.9 ??F (36.6 ??C) (Oral) Resp 20 Ht 6' (1.829 m) Wt 294 lb 12.8 oz (134 kg) SpO2 98% BMI 39.98 kg/m?? Smoking Status Former BSA 2.61 m?? Objective Physical Exam Constitutional: General: He is not in acute distress. Appearance: He is not toxic-appearing. Cardiovascular: Rate and Rhythm: Normal rate and regular rhythm. Pulses: Normal pulses. Heart sounds: No murmur heard. Pulmonary: Effort: Pulmonary effort is normal. No respiratory distress. Breath sounds: No wheezing. Musculoskeletal: Comments: Trace to 1+ pretibial edema. Bilateral varicose veins. Bilateral skin discoloration of venous insufficiency. Superficial ulcer on the posterior left calf about the size of a quarter. No left leg redness, no significant erythema or induration Assessment/Plan Diagnoses and all orders for this visit: Left leg pain Comments: We discussed with the patient the findings of recent ultrasound, the purpose of the IVC filter, hisnew anticoagulation regimen. I recommended the patient to avoid NSAIDs. I recommended to use the Xarelto as prescribed (15 mg twice a day for 21 days and then 20 mg a day for life). I reassured the patient. I do not think he has cellulitis at this point. He is recommended to use the topical antibiotic he was prescribed at [facility]. He is recommended leg elevation. He is recommended to restart compression stocking one the ulcer resolves. 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 Continue gabapentin for pain control. Today he also asked me for refill for Elocon cream he uses forhand eczema and I agreed Presence of IVC filter Recurrent deep vein thrombosis (CMS/HCC) Cellulitis of left lower extremity Ulcer of left lower leg associated with varicose veins (CMS/HCC) Venous stasis dermatitis of both lower extremities - mometasone (Elocon) 0.1 % ointment; Apply topically Once per day. APPLY TOPICALLY EVERY DAY IN THE MORNING Hand eczema Other orders - Silver (SilvaSorb) gel; Apply to ulcer on the left leg documented in this encounter Plan of Treatment Upcoming Encounters Date Type Department Care Team ([facility] st Contact Info) Description 08/30/2024 10:00 AM EDT Office Visit [facility] [address] [place] [address] Leland Brandon MD [address] [place] [address] 09/17/2024 10:15 AM EDT Office Visit [address] [address] Leland Brandon MD [address] [place] [address] documented as of this encounter Visit Diagnoses Diagnosis Left leg pain- Primary Pain in soft tissues of limb Presence of IVC filter Recurrent deep vein thrombosis (CMS/HCC) Cellulitis of left lower extremity Ulcer of left lower leg associated with varicose veins (CMS/HCC) Venous stasis dermatitis of both lower extremities Hand eczema Contact dermatitis and other eczema, due to unspecified cause documented in this encounter Additional Health Concerns Assessment Noted Time PHQ-9 Depression Total Score: 0 09/14/19 24 3:10 PM EDT documented as of this encounter Care Teams Crop Grain Or Livestock Farmer Relationship Specialty Start Date End Date Leland Brandon MD [address] [place] [address] PCP - General Family Medicine 08/26/15 documented as of this encounter
--- OUTSIDE RECORDS SUMMARY | 2024-08-27 13:52 | XMS_ITS | Encounter Summary ---
Author Organization [employer] Address [address] [facility] 7t [place] [address] Care Team Providers Care Gas Station Manager Name Role Phone Name, Leland MIMS Primary Care Provider [phone] Reason for Visit * Reason Comments Med Refill Encounter Details Date Type Department Care Team ([facility] st Contact Info) Description 06/20/2023 Refill [facility] MEDICINE [address] [place], [place] [phone] Name, MD Leland [address] [place] [address] Insomnia, unspecified type Social History Tobacco Use [...] Description 08/30/2024 10:00 AM EDT Office Visit [facility] MEDICINE [address] [place] [phone] NameLeland MD [address] [place] [address] 09/17/2024 10:15 AM EDT Office Visit [address] [address] NameLeland MD [address] [place] [address] documented as of this encounter Visit Diagnoses Diagnosis Insomnia, unspecified type documented in this encounter Additional Health Concerns Assessment Noted Time PHQ-9 Depression Total Score: 0 09/07/19 23 1:16 PM EDT documented as of this encounter Care Teams Gas Station Manager Relationship Specialty Start Date End Date NameLeland MD [address] [place] [address] PCP - General Family Medicine 08/26/15 documented as of this encounter
--- OUTSIDE RECORDS SUMMARY | 2024-08-27 13:53 | XMS_ITS | Encounter Summary ---
Author Organization [employer] Address [address] [facility] 7t [place] [address] Care Team Providers Care Metal Stud Framer Name Role Phone Name, Leland MIMS Primary Care Provider [phone] Reason for Visit * Reason Onset Date Comments Verbal Order 07/24/2024 Encounter Details Date Type Department Care Team ([facility] st Contact Info) Description 07/24/2024 Telephone [facility] MEDICINE [address] [place] [address] Name, MD Leland [address] [place] [address] Verbal Order Social History Tobacco Use Types [...] EST Telephone call returned to Katey at [facility], spoke with Katey. Gave verbal orders for VNA care. Asked when last office visit was, advised it was 07/06/24 with PCP and also pt was seen in [facility] walk in clinic on 07/14/24. Katey verbalized understanding, no further questions. * Telephone Encounter - João Bhatt - 07/24/2024 4:34 PM EST Tc from Emelia with [facility] requesting verbal orders. Please contact Emelia at [phone] Opt 2. documented in this encounter Plan of Treatment Upcoming Encounters Date Type Department Care Team (Late st Contact Info) Description 08/30/2024 10:00 AM EDT Office Visit [facility] [address] [place] [address] Name, MD Leland [address] [place] [address] 09/17/2024 10:15 AM EDT Office Visit [facility] MED[facility]INE [address] [place] [address] Name, MD Leland [address] [place] [address] documented as of this encounter Visit Diagnoses Not on filedocumented in this encounter Additional Health Concerns Assessment Noted Time PHQ-9 Depression Total Score: 0 09/14/19 24 3:10 PM EDT documented as of this encounter Care Teams Metal Stud Framer Relationship Specialty Start Date End Date Name, MD Leland [address] [place] [address] PCP - General Family Medicine 08/26/15 documented as of this encounter
--- OUTSIDE RECORDS SUMMARY | 2024-08-27 13:53 | XMS_ITS | Encounter Summary ---
Author Organization [employer] Address [address] [facility] 7t [place] [address] Care Team Providers Care Family Living Educator Name Role Phone Name, Leland MIMS Primary Care Provider [phone] Reason for Visit * Reason Onset Date Comments FYI 07/26/2024 Encounter Details Date Type Department Care Team ([facility] st Contact Info) Description 07/26/2024 Telephone [facility] MEDICINE [address] [place] [address] Name, MD Leland [address] [place] [address] Social History Tobacco Use Types Packs/Day Years [...] 8:17 AM EST Tc from Sol with [facility] stating that they contact Pt but he refused Both time and they are only allowed to try and offer the Services twice. So they said that they were not going to keep trying. If any questions contact Sol at [phone] documented in this encounter Plan of Treatment Upcoming Encounters Date Type Department Care Team (Late st Contact Info) Description 08/30/2024 10:00 AM EDT Office Visit [facility] MEDICINE [address] [place] [address] Name, MD Leland [address] [place] [address] 09/17/2024 10:15 AM EDT Office Visit [facility]INE [address] [place] [address] NameLeland MD [address] [place] [address] documented as of this encounter Visit Diagnoses Not on filedocumented in this encounter Additional Health Concerns Assessment Noted Time PHQ-9 Depression Total Score: 0 09/14/19 24 3:10 PM EDT documented as of this encounter Care Teams Family Living Educator Relationship Specialty Start Date End Date Name, MD Leland [address] [place] [address] PCP - General Family Medicine 08/26/15 documented as of this encounter
--- OUTSIDE RECORDS SUMMARY | 2024-08-27 13:53 | XMS_ITS | Encounter Summary ---
Author Organization [employer] Address [address] [facility] 7t [place] [address] Care Team Providers Care Lacquer Pin Press Operator Name Role Phone Name, Leland MIMS Primary Care Provider [phone] Reason for Visit * Reason Onset Date Comments Med Refill 07/28/2023 Encounter Details Date Type Department Care Team ([facility] st Contact Info) Description 07/28/2023 Telephone [facility] MEDICINE [address] [place] [address] Name, MD Leland [address] [place] [address] Med Refill Social History Tobacco Use Types [...] Vogt LPN - 07/28/2023 11:52 AM EST MEDICAL TRANSCRIPTION checked 07/28/23 last filled on 06/17/23 refill 2/3 patient should have 1 refill left. * Telephone Encounter - Hailee Louie - 07/28/2023 11:08 AM EST TC from pt requesting medication refill. Medications needing refill : gabapentin (Neurontin) 800 MG tablet To be sent to: [facility] - [address] documented in this encounter Plan of Treatment Upcoming Encounters Date Type Department Care Team (Late st Contact Info) Description 08/30/2024 10:00 AM EDT Office Visit [facility] [address] [place] [address] Name, MD Leland [address] [place] [address] 09/17/2024 10:15 AM EDT Office Visit [facility] [address] [place] [address] Name, MD Leland [address] [place] [address] documented as of this encounter Visit Diagnoses Not on filedocumented in this encounter Additional Health Concerns Assessment Noted Time PHQ-9 Depression Total Score: 0 09/07/19 23 1:16 PM EDT documented as of this encounter Care Teams Lacquer Pin Press Operator Relationship Specialty Start Date End Date Name, MD Leland [address] [place] [address] PCP - General Family Medicine 08/26/15 documented as of this encounter
--- OUTSIDE RECORDS SUMMARY | 2024-08-27 13:53 | XMS_ITS | Encounter Summary ---
Author Organization [employer] Address [address] [facility] 7t [place] [address] Care Team Providers Care Packaging Machine Supplies Distributor Name Role Phone Name, Leland MIMS Primary Care Provider [phone] Reason for Visit * Reason Onset Date Comments Referral 07/20/2022 Encounter Details Date Type Department Care Team ([facility] st Contact Info) Description 07/20/2022 Telephone [facility] MEDICINE [address] [place], [place] [phone] Name, MD Leland [address] [place] [address] Referral Social History Tobacco Use Types Packs/Day [...] Podiatry for new or existing referrals for [facility], [address], [place] [address], Phone #: , Reason for referral is Chronic Severe pain left foot. Marva advised pt has an X-ray done and patient does have the symptom of Chronic pain. Advised Marva with [facility] will forward to team nurse for new referral and injection specialist for existing referral. Please call Marva at [phone] documented in this encounter Plan of Treatment Upcoming Encounters Date Type Department Care Team (Late st Contact Info) Description 08/30/2024 10:00 AM EDT Office Visit [facility] [address] [place] [address] Name, MD Leland [address] [place] [address] 09/17/2024 10:15 AM EDT Office Visit [facility] [address] [place] [address] Name, MD Leland [address] [place] [address] documented as of this encounter Visit Diagnoses Not on filedocumented in this encounter Care Teams Packaging Machine Supplies Distributor Relationship Specialty Start Date End Date Name, MD Leland [address] [place] [address] PCP - General Family Medicine 08/26/15 documented as of this encounter
--- OUTSIDE RECORDS SUMMARY | 2024-08-27 13:53 | XMS_ITS | Encounter Summary ---
Author Organization [employer] Address [address] [facility] 7t [place] [address] Care Team Providers Care Case Finishing Machine Adjuster Name Role Phone NameLeland MD Primary Care Provider [phone] Reason for Referral * Consultation (Routine) - Authorized Specialty Diagnoses / Procedures Referred By Kahlil hoskins Referred To Contact Neurology Diagnoses Tremor of both hands Leland Brandon MD [address] [place] [address] Phone: tel: fax: Geetha Greene MD [address] [place] [address] [place] [address] Phone: tel: fax: Referral ID Status Reason Start Date Expiration Date Visits Requested Visits Authorized [id number] Authorized Specialty Services Required 08/01/2024 08/01/2025 1 1 Reason for Visit * Reason Comments Follow-up Encounter Details Date Type Department Care Team (Late st Contact Info) Description 08/01/2024 2:15 PM EST Office Visit [facility] MEDICINE [address] [place] [address] Leland Brandon MD [address] [place] [address] [phone] Cellulitis, unspecified cellulitis site (Primary Dx); Chronic [...] 2:30 PM EST documented in this encounter Progress Notes * Leland Brandon, - 08/01/2024 2:15 PM EST Subjective Patient ID: Steven Singh is a 59 y.o. male who presents for Follow-up. Patient comes for a follow-up visit. We discussed several issues. He was hospitalized from to July 25 at [facility] because of left lower extremity cellulitis. When the patient presented to the hospital he was hypotensive. He was admitted for left lower extremity cellulitis and sepsis. He was afebrile, mild WBC elevation, mild creatinine elevation, blood cultures remain negative. He responded very well to IV fluids and cefazolin, white count and creatinine normalized and he was discharged home on cephalexin. His blood cultures remain negative he tells me he had an ultrasound of the left leg but I could not find the results. 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 He was advised to follow-up with [facility] hematology as outpatient (he has seen them multiple times in the past). He had negative hypercoagulable workup in the past and age-appropriate cancer screening within the year. By the time of his visit today the left leg redness has resolved however today the patient complains of right leg pain. He has a crusted ulcer on the right cox with surrounding redness. He has baseline chronic venous insufficiency. He continues to complain of chronic low back pain with radiation to the legs. Recent MRI shows severe DJD. He has upcoming appointment with pain clinic. Review of Systems Constitutional: Negative for chills, fatigue and fever. HENT: Negative for sore throat. Respiratory: Negative for cough, chest tightness and shortness of breath. Cardiovascular: Negative for chest pain, palpitations and leg swelling. Gastrointestinal: Negative for abdominal pain and blood in stool. Musculoskeletal: Positive for back pain. Skin: See HPI Neurological: Since then the patient also complains of several months of bilateral hand tremors. The patient has rest and intention tremors. No rigidity. He tells me that is becoming a problem and is dropping things (for example has dropped his phone several times). Visit Vitals BP 129/73 (BP Location: Left arm, Patient Position: Sitting, BP Cuff Size: Large adult) Pulse 75 Temp 98.1 ??F (36.7 ??C) (Temporal) Resp 14 Ht 6' (1.829 m) Wt 297 lb 3.2 oz (135 kg) SpO2 96% BMI 40.31 kg/m?? Smoking Status Former BSA 2.62 m?? Objective Physical Exam Constitutional: General: He is not in acute distress. Appearance: He is not toxic-appearing. Cardiovascular: Rate and Rhythm: Normal rate and regular rhythm. Pulmonary: Effort: Respiratory distress present. Musculoskeletal: Comments: Trace bilateral pretibial edema, varicose veins, skin discoloration of venous insufficiency, the patient has a crusted ulcer on the right cox with surrounding skin redness and induration, no pus drainage, no fluctuance Neurological: General: No focal deficit present. Comments: Bilateral hand tremors Assessment/Plan Diagnoses and all orders for this visit: Cellulitis, unspecified cellulitis site Comments: I will extend his course of Keflex. He is encouraged to call us if the pain, redness on the right leg persists in the next couple of days. Chronic pain syndrome Comments: I refilled his gabapentin. He is already on methadone for treatment of opiate dependence I recommended a short course of Zanaflex for chronic back pain. I encouraged to keep his upcoming appointment with pain clinic. He asked me for another prescription of oral steroid steroids but I recommended against this given recent hospitalization for sepsis and current infection. Orders: - gabapentin (Neurontin) 800 MG tablet; TAKE 1 TABLET BY MOUTH THREE TIMES DAILY Tremor of both hands Comments: Essential tremors? Parkinsonism? I will refer the patient to neurology for evaluation. Check TSH. Orders: - TSH W/Reflex to FT4; Future - Referral to Neurology; Future Other orders - cephalexin (Keflex) 500 MG capsule; Take 1 capsule (500 mg) by mouth 3 times daily for 10 days. - lisinopril 10 MG tablet; Take 1 tablet (10 mg) by mouth Once per day. - tiZANidine (Zanaflex) 2 MG tablet; Take 1 tablet (2 mg) by mouth every 8 (eight) hours if needed for muscle spasms for up to 10 days. documented in this encounter Plan of Treatment Upcoming Encounters Date Type Department Care Team (Late st Contact Info) Description 08/30/2024 10:00 AM EDT Office Visit [facility] MEDICINE [address] [place] [address] Leland Brandon MD [address] [place] [address] 09/17/2024 10:15 AM EDT Office Visit [address] [address] Leland Brandon MD [address] [place] [address] Scheduled Referrals Name Type Priority Associated Diagnoses Orde r Schedule Referral to Neurology Outpatient Referral Routine Tremor of both hands Expected: 08/01/2024 (Approximate), Expires: 08/01/2025 documented as of this encounter Procedures Procedure Name Priority Date/Time Associated Diagnosis Comments TSH W/REFLEX TO FT4 Routine 08/01/2024 3 :05 PM EST Tremor of both hands documented in this encounter Results * TSH W/Reflex to FT4 (08/01/2024 3:05 PM EST) TSH reflex Free T4 0.69 0.32 - 4.0 uIU/mL [facility] Blood Venous blood specimen / Unknown 08/01/2024 3:05 PM EST 08/01/2024 4:20 PM EST Leland Brandon MD LAB BLOOD ORDERABLES Final Resul t [facility] [address] [place] [address] [phone] documented in this encounter Visit Diagnoses Diagnosis Cellulitis, unspecified cellulitis site- Primary Chronic pain syndrome Tremor of both hands documented in this encounter Additional Health Concerns Assessment Noted Time PHQ-9 Depression Total Score: 0 09/14/19 24 3:10 PM EDT documented as of this encounter Care Teams Case Finishing Machine Adjuster Relationship Specialty Start Date End Date Name, MD Leland [address] [place] [address] PCP - General Family Medicine 08/26/15 documented as of this encounter
--- OUTSIDE RECORDS SUMMARY | 2024-08-27 13:53 | XMS_ITS | Patient Health Record ---
Author Organization [facility] Address [address] [facility] [place] [address] Care Team Providers Care Agile Java Developer Name Role Phone Name Leland MIMS Primary Care Provider Unavailabl e Luis Yaquelin Unavailable [phone] MaricelNalini addison Unavailable [phone] Allergies No Known Allergies Reason For Referral No Information Medications Medication SIG (Take, Route, Frequency, Duration) Notes Start Date End Date Status Naproxen 500 MG 1 tablet Orally WITH FOOD Twice a day for 14 days 01/28/2023 Not-Taki ng Ciclopirox 0.77 % 1 application Health Safety Manager ally Twice a day for 30 days 07/15/2022 Not-Taki ng Pradaxa 150 MG 1 capsule Orally Twi ce a day Not-Taking Ammonium Lactate 12 % 1 application Exte rnally Twice a day for 30 days Not-Taki ng Piroxicam 20 MG TAKE 1 CAPSULE BY [facility] EVERY DAY WITH FOOD FOR [...] Problem Status W/U Status Risk Notes Problem 21251322 Plantar wart (B07.0) Active confirmed Problem Acquired hammer toe of left foot (9017115287707974) Other hammer toe(s) (acquired), left foot (M20.42) Active confirmed Problem 038833629 Hammer toe of right foot (M20.41) Active confirmed Problem 028499587 Neuropathy (G62.9) Active confirmed Problem 926567412109367 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 (M19.071) Active confirmed Problem Acquired deformity of left foot (98966552146649896) PlantarFlexion of metatarsal of left foot (M21.6X2) Active confirmed Problem 9395262855519373 Gouty arthritis of left foot (M10.9) Active confirmed Vital Signs Height 6ft in 05/21/2024 Weight 289 lbs 05/21/2024 BMI 39.19 kg/m2 05/21/2024 Encounters Encounter Location Date Provider Diagnosis [facility] [address] [place] [address] 09/13/2023 Nalini Dyer Xerosis of skin L85. 3 ; Metatarsalgia, left foot M77.42 ; Bursitis of intermetatarsal bursa of left foot M77.52 ; PlantarFlexion of metatarsal of left foot M21.6X2 ; Other hammer toe(s) (acquired), left foot M20.42 and Hammer toe of right foot M20.41 [facility] [address] 09/29/2023 Nalini Dyer Tinea unguium B35.1 ; Metatarsalgia, left foot M77.42 ; Pain in right toe(s) M79.674 ; Pain in left toe(s) M79.675 ; Xerosis of skin L85.3 ; PlantarFlexion of metatarsal of left foot M21.6X2 ; Other hammer toe(s) (acquired), left foot M20.42 and Hammer toe of right foot M20.[address] [place] [address] 12/08/2023 Nalini Dyer Tinea unguium B35.1 ; Pain in right toe(s) M79.674 and Pain in left toe(s) M79.675 [facility] [address] [facility] [place] [address] 05/21/2024 Nalini Connellya Tinea unguium B35.1 ; Metatarsalgia, left foot M77.42 ; Pain in right toe(s) M79.674 ; Pain in left toe(s) M79.675 ; Xerosis of skin L85.3 ; PlantarFlexion of metatarsal of left foot M21.6X2 ; Other hammer toe(s) (acquired), left foot M20.42 ; Hammer toe of right foot M20.41 and Bursitis of intermetatarsal bursa of left foot M77.[address] [address] 09/05/2023 Nalini Dyer [address] [address] 09/05/2023 [facility] Luis [facility] [address] [place] [address] 09/08/2023 Yaquelin Black [facility] [address] 09/14/2023 Nalini Perica [facility] [address] 02/06/2024 Yaquelin Black [address] [address] 03/05/2024 Yaquelin Smith Assessments Encounter Date Diagnosis (ICD Code) Assessment Notes Treatment Notes Treatment Clinical Notes Section Notes 09/13/2023 Xerosis of skin (ICD-10 - L85.3) [...] 09/13/2023 Metatarsalgia, left foot (ICD-10 - M77.42) 09/29/2023 Pain in left toe(s) (ICD-10 - M79.675) 09/13/2023 PlantarFlexion of metatarsal of left foot (ICD-10 - M21.6X2) 05/21/2024 Pain in left toe(s) (ICD-10 - M79.675) 05/21/2024 Xerosis of skin (ICD-10 - L85.3) 09/29/2023 Xerosis of skin (ICD-10 - L85.3) 09/13/2023 Other hammer toe(s) (acquired), left foot (ICD-10 - M20.42) 09/13/2023 Hammer toe of right foot (ICD-10 [...] X ray : Foot, right 3V 01/27/2023 96295-[id number] NAIL, 6 OR MORE 11/03/2021 57087-CLBEOSX NAIL, 6 OR MORE 01/19/2022 76985, J0702- INJECT TENDON ORIGIN/INSER T 01/27/2023 68799, T6103-RZDSE/INJECT, JOINT/BURSA 0 07/02/2022 X ray : Ankle, right 3V 01/27/2023 Next Appt Details Provider Name:Nalini addison, 09/06/2024 02:30:00 PM, [address] [place], [address], Insurance Providers Payer Name Payer Address Payer Phone Subscriber Number Group Number Insured Name Patient Relationship to Insured Coverage Start Date Coverage End Date [facility] [employer] Claims [address] [place] [id number] Steven Subramanian Self - patient is the insured Medical (General) History Medical History History ICD Code Arthritis Depression Psoriasis/eczema Surgical History Surgery Date(Month/Year) ear tubes Hospitalization History Reason Date(Month/Year) [facility]- blood clot 07/2021 [facility] leg issue, cyst
--- OUTSIDE RECORDS SUMMARY | 2024-08-27 13:53 | XMS_ITS ---
Author Organization [facility] Address [address] [place] [address] Care Team Providers Care Pipe Fitter Soft Copper Name Role Phone Name Leland MIMS Primary Care Provider Unavailabl e Alex Smithmie Unavailable [phone] Nalini Dyer Unavailable [phone] Encounters Encounter Location Date Provider Diagnosis [address] [address] 08/02/2024 Nalini Dyer Plan Of Treatment Next Appt Details Provider Name:Nalini addison, 09/06/2024 02:30:00 PM, [address] [place] [address], [phone], Progress Notes * Jaren MCLAUGHLINsDOB: 3 (59 yo M)Acc No.[id number]:08/02/2024 Progress Note Patient:?Steven MCLAUGHLIN Provider:?Nalini Dyer DPM :1965???Age:59 Y???Sex:Male Jose e:08/02/2024 Address:[address] [place], [place] [id number] Pcp:Leland Brandon MD Subjective: * Chief Complaints: [...] Dyer DPM Date:? Generated for Luisa john/Alexandrea/Clayton on:?08/27/2024 01:52 PM EDT
--- OUTSIDE RECORDS SUMMARY | 2024-08-27 13:53 | XMS_ITS | Encounter Summary ---
Author Organization [employer] Address [address] [facility] 7[address] [place] [address] Care Team Providers Care Injury Prevention Coordinator Name Role Phone Name, Leland MIMS Primary Care Provider [phone] Reason for Visit * Reason Onset Date Comments Med Refill 01/02/2024 Encounter Details Date Type Department Care Team ([facility] st Contact Info) Description 01/02/2024 Telephone [facility] MEDICINE [address] [place] [address] Name, MD Leland [address] [place] [address] Med Refill Social History Tobacco Use Types [...] 10 MG tablet To be sent to: [facility] [place], [place] - [address] [place] [address] documented in this encounter Plan of Treatment Upcoming Encounters Date Type Department Care Team ([facility] st Contact Info) Description 08/30/2024 10:00 AM EDT Office Visit [address] [address] Name, MD Leland [address] [place] [address] 09/17/2024 10:15 AM EDT Office Visit [facility] MEDICINE [address] [place] [address] Name, MD Leland [address] [place] [address] documented as of this encounter Visit Diagnoses Not on filedocumented in this encounter Additional Health Concerns Assessment Noted Time PHQ-9 Depression Total Score: 0 09/14/19 24 3:10 PM EDT documented as of this encounter Care Teams Injury Prevention Coordinator Relationship Specialty Start Date End Date Name, MD Leland [address] [place] [address] PCP - General Family Medicine 08/26/15 documented as of this encounter
--- OUTSIDE RECORDS SUMMARY | 2024-08-27 13:53 | XMS_ITS | Encounter Summary ---
Author Organization [employer] Address [address] [facility] 7t [place] [address] Care Team Providers Care Environmental Health And Safety Manager Name Role Phone Name, Lelnad MIMS Primary Care Provider Encounter Details Date Type Department Care Team ([facility] Contact Info) Description 11/22/2022 Abstract [facility] MEDICINE [address] [place] [phone] Name, MD Leland [address] [place] [address] [phone] Social History Tobacco Use Types Packs/Day Years [...] Upcoming Encounters Date Type Department Care Team ([facility] Contact Info) Description 08/30/2024 10:00 AM EDT Office Visit [facility] MEDICINE [address] [place] [address] Name, [place] [address] 09/17/2024 10:15 AM EDT Office Visit [facility] MEDICINE [address] [place] [address] Name, [place] [address] documented as of this encounter Visit Diagnoses Not on filedocumented in this encounter Additional Health Concerns Assessment Noted Time PHQ-9 Depression Total Score: 0 09/07/19 23 1:16 PM EDT documented as of this encounter Care Teams Environmental Health And Safety Manager Relationship Specialty Start Date End Date [place] [address] PCP - General Family Medicine 08/26/15 documented as of this encounter
--- OUTSIDE RECORDS SUMMARY | 2024-08-27 13:53 | XMS_ITS | Data Portability ---
Author Organization MD - [facility], Allergy Address [address] [place] [address] Care Team Providers Care Dairy Chemist Name Role Phone NAME, MARIO Primary Care [...] consider CT temporal bone given chronic symptoms. [email or web address] Not available 11/24/2023 17:08:14 01/24/2024 01/24/2024 Patient [...] Risks and benefits of surgery discussed using multiple games dealer. Will begin the scheduling process and see him back at the time of surgery. [email or web address] Not available 01/24/2024 16:10:18 06/18/2024 06/18/2024 Patient presents postoperatively after insertion of T-tubes bilaterally 05/18. Has had a burning pain in the right ear. Physical exam reveals well placed and patent tubes without otorrhea. The skin of the right EAC is erythematous and dry though intact without edema. The conductive component of his hearing loss has resolved and he has a persistent tvqaqwmt-vi-xgrlhd neurosensory loss. Recommend updated technology; [facility] provider list provided with medical clearance and copy of he audiogram. Return in one year for repeat audiometric testing. Call sooner with perceived change. For the burning otalgia, we reviewed this may well be his chronic psoriasis. Recommend fluocinolone oil and return in 6 weeks for re-evaluation. [email or web address] Not available 06/18/2024 16:28:08 08/24/2024 08/24/2024 59-year-old male with T tubes presents for evaluation of intermittent right otalgia. He has arthritis. Physical exam reveals no identifiable source of otalgia involving the auricle, external auditory canal, or tympanic membrane. T tubes are adequately placed and patent bilaterally. Examination was positive for tenderness of the jaw joint and kanu-TMJ musculature bilaterally. The patient's auricular discomfort is most likely consistent with intermittent inflammation of the jaw joint or spasm of the surrounding musculature. I recommended the patient use light massage, warm compresses and anti-inflammatorie s for symptomatic management. Stressed chewing evenly on both sides of the mouth to keep from overworking the jaw joint. Use soft food diet as needed. Jaw Joint Program information sheet was shared. Recommend considering medical-grade mouth guard through their dentist if symptoms persist despite supportive management. He will follow-up as needed for cerumen debridement. [email or web address] Not available 08/24/2024 17:10:36 Plan of Treatment Reminders Order Date Submit Date Provider Last Modified By Organization Details Last Modified Time Details Appointments None recorded. Lab None recorded. Referral None recorded. Procedures None recorded. Surgeries myringotom y, bilateral, with tube insertion (SURG) 2023 024 [email or web address] Not available 4 16:11:39 Imaging None recorded. Medication Orders fluocinolo ne acetonide oil 0.01 % ear drops 2024 025 [facility][id number], [address] [place], [address], 5 15:56:32 Patient TargetsNo targets recorded. Patient InstructionsNo instructions recorded. Reason for Referral None Reported. Results Created Date Observation Date Name Description Value Unit Range Abnormal Flag Note LastModifiedBy Organization Detail LastModifiedTime 11/28/19 audio gram No observ ation record ed. [...] record ed. [email or web address] Not Available 20:08:56 06/19/19 25 audio gram No observ ation record ed. BARCODE Not Available 2024 10:49:00 Result Notes None recorded. Problems Name Problem SNOMED Code Status Onset Date Resolution Date Notes Provider Name and Address Organization Details Recorded Time History of tobacco use 52700420894 03 Active 2017 History of tobacco use; Note: Date Diagnose d: 11/17/2017 2:10 PM (V15.82) Not Available [facility] 4 02:48:23 Otorrhea of right ear 16171016660 48503 Active 2015 Otorrhea , right ear; Note: Date Diagnose d: 6 10:53 AM (H92.11) Not Available [facility] 4 02:48:27 Tinnitus of left ear 67322674256 06 Active 2015 Tinnitus , left ear; Note: Date Diagnose d: 6 1:49 PM (H93.12) Not Available [facility] 4 02:48:21 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 63318151 Active 2017 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, unspecif ied side; Note: Changed from M26.62 to M26.629 (01/08/20 23 2:39 PM) , Date Diagnose d: 11/17/2017 2:11 PM (M26.62) Not Available [facility] 4 02:48:26 Otalgia of left ear 8673184872 Active 2017 Otalgia, left ear; Note: Date Diagnose d: 11/17/2017 2:11 PM (H92.02) Otalgi a, left ear; Note: Date Diagnose d: 6 1:23 PM (H92.02) ; Start Date : 06/27/19 16 Not Available [facility] 4 02:48:25 Adhesive middle ear disease 6472377 Active 2013 Adhesive middle ear disease, unspecif ied as to involvem ent; Location : right CM S Risk: minimal risk CMS Treatmen t: self-cabrera ited or minor problem Conditio n: worse No te: Date Diagnose d: 4 4:36 PM (385.10) , Patient has a mild right anterior retracti on and left myringo- incudope xy Not Available [facility] 4 02:48:23 Sensorin eural hearing loss 58383760 Active 2015 Sensorin eural hearing loss, unilater al, left ear, with unrestri cted hearing on the contrala teral side; Note: Date Diagnose d: 6 3:27 PM (H90.42) Not Available [facility] 4 02:48:28 Disorder of nasal sinus 4193387 Active 2020 Other specifie d disorder s of nose and nasal sinuses; Note: Date Diagnose d: 06/08/20 21 10:31 AM (J34.89) Not Available [facility] 4 02:48:20 Disorder of the nose 94353646 Active 2020 Other specifie d disorder s of nose and nasal sinuses; Note: Date Diagnose d: 06/08/20 21 10:31 AM (J34.89) Not Available [facility] 4 02:48:21 Psoriasi s 2326124 Active 2019 Other psoriasi s; Note: Date Diagnose d: 0 11:50 AM (L40.8) Not Available [facility] 4 02:48:27 Sensorin eural hearing loss in left ear 15970923646 109 Active 2015 Sensorin eural hearing loss, unilater al, left ear, with restrict ed hearing on the contrala teral side; Note: Date Diagnose d: 06/01/20 16 2:10 PM (H90.A22 ) Not Available [facility] 4 02:48:29 Sensorin eural hearing loss of bilatera l ears 320077291 Active 2019 SNHL Bilatera lly; Note: Date Diagnose d: 4 4:08 PM (389.18) , Patient with bilatera l sensorin eural hearing loss affectin g all frequenc ie. Recommen d amplific ation, patient provided with a copy of todays audiogra m, medical clearanc e for hearing aids, and a list of [facility] hearing aid dispense rs. Follow up as needed ; Start Date : 03/12/20 14 Senso rineural hearing loss, bilatera l; Note: Date Diagnose d: 04/28/20 20 11:59 AM (H90.3) Sensor ineural hearing loss, bilatera l; Note: Date Diagnose d: 6 1:49 PM (H90.3) ; Start Date : 06/27/19 16 Not Available [facility] 4 02:48:24 Chronic serous otitis media of left ear 208858246 Active 2015 Chronic serous otitis media, left ear; Note: Date Diagnose d: 6 2:21 PM (H65.22) Not Available [facility] 4 02:48:28 Chronic serous otitis media 29284560 Active 2013 Chronic serous otitis media; Location [...] given severity of hearing loss Not Available [facility] 4 02:48:22 Mixed conducti ve and sensorin eural hearing loss of right ear 77662433700 105 Active 2015 Mixed conducti ve and [...] 16 2:10 PM (H90.A31 ) Not Available [facility] 4 01:08:24 Tobacco user 143226001 Completed 201701/24/2024 Tobacco use; Note: Date Diagnose d: 8 11:00 AM (Z72.0) JABARI DELVALLE MD [address] [place] [address], [facility] [place], [address] , [facility] - [facility] 4 16:10:42 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 Other specifie d superfic ial mycoses; Note: Date Diagnose d: 7 1:41 PM (B36.8) Not Available [facility] 4 02:48:28 Dysfunct ion of eustachi an tube 09222043 Active 2013 Eustachi an tube dysfunct ion; Note: Date Diagnose d: 4 4:08 PM (381.81) Not Available [facility] 4 02:48:25 Otalgia 03505185 Active 2014 Otalgia; Note: Date Diagnose d: 5 2:02 PM (388.70) Not Available [facility] 4 02:48:29 Referred otalgia 99794353 Active 2019 Otalgia secondar y to TMJ; Note: Date Diagnose d: 0 2:21 PM (388.72) Not Available [facility] 4 02:48:30 Impacted cerumen 15377131 Active 2014 Impacted cerumen; [facility] Treatmen t: lupillos hed problem (to examiner ): stable or improved Note: Date Diagnose d: 5 1:42 PM (380.4) Not Available [facility] 4 02:48:23 Itching of skin 490631824 Active 2019 Other pruritus ; Note: Date Diagnose d: 0 2:25 PM (L29.8) Not Available [facility] 4 02:48:21 Impacted cerumen in right ear 61588306609 26334 Active 2016 Impacted cerumen, right ear; Note: Date Diagnose d: 7 4:26 PM (H61.21) Not Available [facility] 4 02:48:26 Impacted cerumen of bilatera l ears 26495333663 11645 Active 2016 Impacted cerumen, bilatera l; Note: Date Diagnose d: 7 1:58 PM (H61.23) Not Available [facility] 4 02:48:29 Chronic serous otitis media of right ear 552150215 Active 2015 Chronic serous otitis media, right ear; Note: Date Diagnose d: 6 3:57 PM (H65.21) Not Available [facility] 4 02:48:25 Bilatera l disorder of Eustachi an tubes 13051318155 30516 Active 2015 Other specifie d disorder s of Eustachi an tube, bilatera l; Note: Date Diagnose d: 6 2:21 PM (H69.83) Not Available [facility] 4 02:48:27 Otalgia of right ear 2570432041 Active 2017 Otalgia, right ear; Note: Date Diagnose d: 8 10:49 AM (H92.01) Otalgi a, right ear; Note: Date Diagnose d: 5 2:03 PM (H92.01) [mapped from ICD9 code: 388.70] ; Start Date : 01/03/20 15 Not Available [facility] 4 02:48:22 Chronic serous otitis media 10397907 Active 2023 JABARI DELVALLE MD [address] [place] [address],[address], [address] , [place] - [facility] 4 16:07:04 Problem Notes None recorded. Procedures Surgical History Date Name Laterality Status Provider Name and Address Organization Details Recorded Time 06/18/19 25 Air & Speech Audio with Tymps (24324, 82938 & 45058) completed BALA WASSERMAN [address] [place] [address],[address], [address], [facility] - [facility] [place] 06/18/2024 15:27:33 05/18/20 24 MYRINGOTOMY, BILATERAL, WITH TUBE INSERTION (SURG) completed Freedom Lozano [place] - [facility] [place] 05/21/2024 11:01:39 01/24/20 24 Cerumen removal with microscope bilateral completed JABARI DELVALLE MD [address] [place] [address],[address], [address], [place] - [facility] [place] [place] 01/24/2024 16:10:57 11/24/19 24 Cerumen removal without microscope bilat completed ANTHONY APONTE PA-C [address] [place] [address], [place], [address], [place] - [facility] 11/24/2023 17:07:33 11/24/19 24 Tympanometry (87190) completed Roxy Rico MD - [facility] 11/24/2023 16:43:26 11/24/19 24 Air & Bone Audio (29042) completed Roxy Rico [place] - [facility] 11/24/2023 16:45:17 Myringotomy Tube Placement completed Amber Kebede MD - [facility] 01/24/2024 15:34:07 Imaging Results Imaging Date Name Status LastModified by Organ [facility] Details LastModified Time 11/28/2023 audiogram completed BARCODE [...] TAKE 1 TABLET BY MOUTH AT BEDTIME active Not Available Not Available No t Available atorvasta tin 40 mg tablet 2020 active Medicati on ID: [id number] B rand Name: atorvast atin Toan d Method: E-Prescr ibed Sub s Allowed: subs OK Medic ationGen ericName : atorvast atin Not Available Not Available Not Available bupropion HCl SR 150 mg tablet,12 hr sustained -release 2020 active Medicati on ID: [id number] B rand Name: bupropio n HCl Send [...] Not Available Not Available No t Available tizanidin e 2 mg tablet TAKE 1 TABLET BY MOUTH EVERY 8 HOURS NEEDED FOR MUSCLE SPASMS active Not Available Not Available No t Available ammonium lactate 12 % lotion APPLY TOPICALL Y IF NEEDED FOR DRY SKIN. active Not Available Not Available No t Available Lotrisone 1 %-0.05 % topical cream 06/08 completed Medicati on ID: [id number] B rand Name: Lotrison e Send Method: E-Prescr ibed Sub s Allowed: subs OK Speci al Instruct ion: apply to external ear tid X 2 weeks Me dication GenericN emily: Lotrison e Medica tion ID: [id number] B rand Name: Lotrison e Send Method: E-Prescr ibed Sub s Allowed: subs OK Speci al Instruct ion: apply to external ear tid X 2 weeks Me dication GenericN emily: Lotrison e Not Available Not Available Not Available clotrimaz ole-betam ethasone 1 %-0.05 % lotion 06/08 completed Medicati on ID: [id number] P [place] daniels By Name: TONNY Tejeda nd Name: Lotrison [...] topical cream 01/23 completed Medicati on ID: [id number] B rand Name: betameth asone, augmente d Send Method: E-Prescr ibed Sub s Allowed: subs OK Medic ationGen ericName : betameth asone, augmente d Not Available Not Available Not Available Ciloxan 0.3 % eye drops 01/23 completed Medicati on ID: [id number] D uration Value: 3 Prescri bed By Name: Hector Barber nd Name: Ciloxan Send Method: E-Prescr ibed Sub s Allowed: subs OK Speci al Instruct ion: Instill 4 drops twice a day into affected ear for 3 days Med icationG enericNa me: Ciloxan Not Available Not Available Not Available sulfameth oxazole 800 mg-trimet hoprim 160 mg tablet TAKE 1 TABLET TWICE DAILY FOR 10 DAYS active Not Available Not Available No t Available aspirin 81 mg tablet,de layed release 2020 active Medicati on ID: [id number] B rand Name: aspirin Send Method: E-Prescr [...] Not Available Not Available No t Available baclofen 20 mg tablet TAKE 1 TABLET BY MOUTH THREE TIMES DAILY FOR 10 DAYS active Not Available Not Available No t Available hydrocort isone 2.5 % topical cream with perineal applicato r 2020 active Medicati on ID: [id number] B rand Name: hydrocor tisone S end [...] t Available tamsulosi n 0.4 mg capsule 12/27/ 2021 active Medicati on ID: [id number] B rand Name: tamsulos in Send Method: [...] right ear 01/23 completed Medicati on ID: [id number] Pr escribed By Name: TONNY Crisostomo nd Name: antipyri ne-benzo rohan Se nd Method: E-Prescr ibed Sub s Allowed: subs OK Speci al Instruct ion: as needed for discomfo rt Medic ationGen ericName : antipyri ne-benzo rohan Not Available Not Available Not Available hydrocort isone 1 % topical cream 2020 active Medicati on ID: [id number] B rand Name: hydrocor tisone S end Method: E-Prescr ibed Sub s Allowed: subs OK Medic ationGen ericName : hydrocor tisone Not Available Not Available Not Available cephalexi n 500 mg capsule TAKE 1 CAPSULE BY MOUTH THREE TIMES DAILY FOR 10 DAYS active Not Available Not Available No t Available dexametha sone 4 mg tablet TAKE 1 TABLET BY MOUTH TWICE DAILY IN THE MORNING AND IN THE EVENING WITH BREAKFAS T AND WITH DINNER FOR [...] mg tablet 2020 active Medicati on ID: [id number] B rand Name: lisinopr il Send Method: E-Prescr ibed Sub s Allowed: subs OK Medic ationGen ericName : lisinopr il Not Available Not Available Not Available mometason e 0.1 % topical ointment APPLY TO THE AFFECTED AREA(S) ONCE DAILY IN THE MORNING active Not Available Not Available No t Available mupirocin 2 % topical ointment APPLY TOPICALL Y THREE TIMES DAILY FOR 10 DAYS active Not Available Not Available No t Available lorazepam 1 mg tablet 06/08 completed [...] mg tablet 2020 active Medicati on ID: [id number] B rand Name: loratadi ne Send Method: [...] topical cream 06/08 completed Medicati on ID: [id number] Dariana daniels By Name: TONNY Tejeda nd [...] Not Available Not Available No t Available oxycodone 5 mg tablet active Not Available Not Available Not Available ciclopiro x 0.77 % topical cream 1 APPLICAT ION EXTERNAL LY TWICE A DAY 30 DAYS 01/23 completed Not Available Not Available Not Available enoxapari n 120 mg/0.8 mL subcutane ous syringe INJECT 0.8 ML (120 MG) DIRECTED TWICE DAILY active Not Available Not Available No t Available alfuzosin ER 10 mg tablet,ex tended release 24 hr 2020 active Medicati on ID: [id number] B rand Name: alfuzosi n Send Method: [...] mg capsule 2020 active Medicati on ID: [id number] B rand Name: pregabal in Send Method: E-Prescr ibed Sub s Allowed: subs OK Medic ationGen ericName : pregabal in Not Available Not Available Not Available antipyrin e-benzoca ine 3 drop into right ear as directed 06/08 completed Medicati on ID: [id number] Br and Name: antipyri ne-benzo rohan Se [...] mg capsule 2020 active Medicati on ID: [id number] B rand Name: Fish Oil Send Method: E-Prescr ibed Sub s Allowed: subs OK Medic ationGen ericName : Fish Oil Not Available Not Available Not Available hydrochlo rothiazid e 12.5 mg tablet TAKE 1 TABLET BY MOUTH EVERY DAY IN THE MORNING active Not Available Not Available No t Available Athlete's Foot (clotrima zole) 1 % topical cream 01/23 completed Medicati on ID: [id number] D uration Value: 14 Prescri bed By Name: TONNY Tejeda nd Name: Curt al (clotrim azole) S end Method: E-Prescr [...] completed Not Available Not Available Not Available Xarelto 15 mg tablet active Not Available Not Available Not Available Xarelto 20 mg tablet active Not Available Not Available Not Available Eliquis 5 mg tablet 2020 active Medicati on ID: [id number] B rand Name: Eliquis Send Method: E-Prescr ibed Sub s Allowed: subs OK Medic ationGen ericName : Eliquis Not Available Not Available Not Available Anoro Ellipta 62.5 mcg-25 mcg/actua tion powder for inhalatio n INHALE 1 PUFF DAILY active Not Available Not Available No t Available OxyContin 40 mg tablet,cr us resistant ,extended release 06/01 completed Medicati on [...] and Address Organization Details Last Updated DateTime 08/24/2024 182.88 cm 38.7 kg/m2 327194.83 g Kayla Chacko [place] - [facility] 08/24/2024 14:36:20 Date Recorded Body height Body mass index (BMI) Body weight Provider Name and Address Organization Details Last Updated DateTime 01/24/2024 182.88 cm 38 kg/m2 941985.86 g Amber Kebede MD - [facility] 01/24/2024 15:28:13 Date Recorded Body height Body mass index (BMI) Body weight Provider Name and Address Organization Details Last Updated DateTime 11/24/2023 182.88 cm 38 kg/m2 784575.86 g Barbie Wero MD - [facility] 11/24/2023 16:09:06 Social History Question Answer Notes LastModified by Organizat ion Details LastModified Time Tobacco Smoking Status Former Smoker JABARI DELVALLE MD [address] [place] [address], [phone] - [facility] 01/24/2024 16:04:47 When Did You Quit Smoking? 1-5yearssinc elastcigaret te [email or web address] Information not available 01/24/2024 Sex: Unknown Functional Status None recorded. Mental Status None recorded. Family History Nothing Reported. Medical History Condition Response Anxiety Y Depression Y Sleep Disorder Y Past Encounters Encounter ID Performer Location Encounter Start Date Encounter Closed Date Diagnosis/Indication Diagnosis SNOMED-CT Code Diagnosis ICD10 Code Diagnosis Note [id number] DMITRI LEE MD [facility] [address] [address] 11/24/2023 15:43:29 11/24/2023 17:00:35 Bilateral disorder of Eustachian tubes 0634923441 104745 H69.83 Impacted c erumen of bilateral ears 8456076658 021989 H61.23 Otalgia of right ear 398 3517075 H92.01 Mixed cond uctive and sensorineural hearing loss of right ear 1542675463 9105 H90.A31 Profound mixed hearing loss and a Type C tympanogra m noted in the right ear. Severe to profound sensorineu ral hearing loss and a Type B tympanogra m with large volume noted in the left ear. Sensorineu ral hearing loss in left ear 6174730297 9109 H90.A22 Acute sero us otitis media of right ear 1689109878 090111 H65.01 [id number] JABARI DELVALLE MD [facility] [address] [address] 01/24/2024 15:09:42 01/24/2024 16:10:53 Bilateral disorder of Eustachian tubes 2995615763 159825 H69.83 Chronic se emmie otitis media 84021604 H65.21 Sensorineu ral hearing loss of bilateral ears 337560920 H90.3 Impacted c erumen of bilateral ears 3654475816 291860 H61.23 [id number] MARY ELLEN SWEENEY MD [facility] [address] [address] 06/18/2024 15:02:45 06/18/2024 16:05:21 Bilateral disorder of Eustachian tubes 9815788648 394197 H69.93 Right Ear:Modera te to severe SNHL with excellent speech discrimina tion.Paten t tube.Left Ear:Modera te to severe SNHL with excellent speech discrimina tion.Paten t tube. Psoriasis 5793444 L40.9 [id number] FAITH MEDINA MD [facility] [address] [address] 08/24/2024 14:29:50 08/24/2024 14:55:40 Arthralgia of temporomandibular joint 98488340 M26.629 Bilateral disorder of Eustachian tubes 5581782135 994592 H69.93 Health Concerns Section Related Observation LastModified by Organization Detai ls LastModified Time None Recorded Concern Status LastModified by Organization Details LastModified Time None Recorded Advance Directives Directive None Recorded Payers Encounter Date Sequence Insurance Name Policy Number Policy Simon Covered Member ID Simon Member ID Guarantor Name 11/24/2023 1 [employer] [facility] [place] ([place]ICARE REPLAC[place]/ADV ANTAGE - HMO) Steven Subramanian [id number] Steven Subramanian 01/24/2024 1 [facility] - DOS ON OR AFTER 2022 - [employer] (MEDICARE REPLACEMENT/ADV ANTAGE - HMO) Steven Subramanian [id number] Steven Salazar Moris 06/18/2024 1 [facility] - DOS ON OR AFTER 2022 - [employer] (MEDICARE REPLACEMENT/ADV ANTAGE - HMO) Steven Salazar Moris [id number] Steven Salazar Moris 08/24/2024 1 [facility] - DOS ON OR AFTER 2022 - [employer] (MEDICARE REPLACEMENT/ADV ANTAGE - HMO) Steven Salazar Moris [id number] Steven Salazar Moris Notes Date Note Type Note Provider Name [...] the ears with improvement. DMITRI LEE MD [address] [facility],[address], [address], [facility] - [facility] 11/25/2023 17:06:21 01/24/2024 text/html 58-year-old male with history of recurrent cerumen impaction, psoriasis affecting the external ears, and ETD s/p T-tube placement in March 2016 with la presents for follow up of ETD. He [...] patent. Patient has binaural amplification dispensed at [facility] audiology. JABARI DELVALLE MD [address] [facility],[place] [address], [place], [address], [facility] [...] not bring them today. Got them in [place] some years ago. He does not have tinnitus. MARY ELLEN FOOTE MD [address] [place] [address], [address], [facility] - [facility] 06/18/2024 21:22:33 08/24/2024 text/html 59-year-old male with T tubes presents for reevaluation of right ear pain. He reports minimal improvement with topical DermOtic. This pain occurs 2-3 times weekly. He denies inciting events. He does have a history of arthritis. FAITH MEDINA MD [address] [place] [address],[address], [address], [facility] - [facility] 08/26/2024 08:15:56
--- OUTSIDE RECORDS SUMMARY | 2024-08-27 13:53 | XMS_ITS ---
Author Organization [facility] Address [address] [place] [address] Care Team Providers Care Pony Edger Name Role Phone Name Leland MIMS Primary Care Provider Unavailabl e Alex Smithmie Unavailable [phone] Nalini Dyer Unavailable [phone] Encounters Encounter Location Date Provider Diagnosis [address] [address] 03/05/2024 Nalini Dyer Plan Of Treatment Next Appt Details Provider Name:Nalini addison, 09/06/2024 02:30:00 PM, [address] [place] [address], [phone], Progress Notes * Jaren MCLAUGHLINsDOB: 3 (59 yo M)Acc No.[id number]:03/05/2024 Progress Note Patient:?Steven MCLAUGHLIN Provider:?Nalini Dyer DPM :1965???Age:58 Y???Sex:Male Jose e:03/05/2024 Address:[address] [place], [place] [address] Pcp:Leland Brandon MD Subjective: * Chief Complaints: [...]
--- OUTSIDE RECORDS SUMMARY | 2024-08-27 13:53 | XMS_ITS | Encounter Summary ---
Author Organization [employer] Address [address] [place] [address] Care Team Providers Care Poker Dealer Name Role Phone Name, Leland MIMS Primary Care Provider [phone] Reason for Visit * Reason Comments Med Refill Encounter Details Date Type Department Care Team ([facility] st Contact Info) Description 09/23/2023 Refill [facility] [address] [place] [address] Ila Lora MD [address] [place] [address] Social History Tobacco Use Types Packs/Day Years [...] Description 08/30/2024 10:00 AM EDT Office Visit [facility] [address] [place] [address] NameLeland MD [address] [place] [address] 09/17/2024 10:15 AM EDT Office Visit [facility] [address] [place] [address] NameLelnad MD [address] [place] [address] documented as of this encounter Visit Diagnoses Not on filedocumented in this encounter Additional Health Concerns Assessment Noted Time PHQ-9 Depression Total Score: 0 09/14/19 24 3:10 PM EDT documented as of this encounter Care Teams Poker Dealer Relationship Specialty Start Date End Date NameLeland MD [address] [place] [address] PCP - General Family Medicine 08/26/15 documented as of this encounter
--- OUTSIDE RECORDS SUMMARY | 2024-08-27 13:53 | XMS_ITS | Encounter Summary ---
Author Organization [employer] Address [address] [place] [address] Care Team Providers Care Nutrient Management Specialist Name Role Phone Name, Leland MIMS Primary Care Provider [phone] Reason for Visit * Reason Comments Med Refill Encounter Details Date Type Department Care Team ([facility] st Contact Info) Description 07/25/[address] [facility] [address] [place], [place] [phone] Stacey Wade MD [address] [place] [address] Lumbago with sciatica, right side Social History [...] is your housing situation today? I have anderw machuca 09/06/[address] you [...] Description 08/30/2024 10:00 AM EDT Office Visit [facility] [address] [place] [address] NameLeland MD [address] [place] [address] 09/17/2024 10:15 AM EDT Office Visit [address] [address] NameLeland MD [address] [place] [address] documented as of this encounter Visit Diagnoses Diagnosis Lumbago with sciatica, right side documented in this encounter Additional Health Concerns Assessment Noted Time PHQ-9 Depression Total Score: 0 09/14/19 24 3:10 PM EDT documented as of this encounter Care Teams Nutrient Management Specialist Relationship Specialty Start Date End Date Leland Brandon MD [address] [place] [address] PCP - General Family Medicine 08/26/15 documented as of this encounter
--- OUTSIDE RECORDS SUMMARY | 2024-08-27 13:53 | XMS_ITS | Clinical Summary ---
Author Organization [address] [facility] Address [address] [place] [address] Phone Care Team Providers Care Senior Db2 Systems Programmer Name Role Phone Name, Leland MIMS Primary Care Provider [phone] Allergies No known active allergies Medications DICLOFENAC [...] ID:[id number] Group ID:[id number] Type:Not on file Address: [place] [address] [address] [place] [address] Care Teams Senior Db2 Systems Programmer Relationship Specialty Start Date End Date Name, MD Leland [address] [place], [place] PCP - General 01/06/15
--- OUTSIDE RECORDS SUMMARY | 2024-08-27 13:53 | XMS_ITS | Continuity of Care Document ---
Author Organization [place] - [facility], [facility] Address [address] [place] [address] Care Team Providers Care Bow Rehairer Name Role Phone NAME, MARIO Primary Care Provider [phone] Assessment Encounter Date Assessment Date Assessment LastModified by Organization Details LastModified Time 08/24/2024 08/24/2024 59-year-old male with T tubes [...] patient use light massage, warm compresses and anti-inflammato lupe for symptomatic management. Stressed chewing evenly on [...] Details Last Modified Time Details Appointments None record ed. Lab None record ed. Referral None record ed. Procedures None record ed. Surgeries None record ed. Imaging None record ed. Medication Orders None record ed. Patient TargetsNo targets recorded. Patient InstructionsNo instructions recorded. Reason for Referral None Reported. Problems Name Problem SNOMED Code Status Onset Date Resolution Date Notes Provider Name and Address Organization Details Recorded Time History of tobacco use 87879491629 03 Active 2017 History of tobacco use; Note: Date Diagnose d: 11/17/2017 2:10 PM (V15.82) Not Available [facility] 4 02:48:23 Otorrhea of right ear 32110000841 72866 Active 2015 Otorrhea , right ear; Note: Date Diagnose d: 6 10:53 AM (H92.11) Not Available [facility] 4 02:48:27 Tinnitus of left ear 92265950012 06 Active 2015 Tinnitus , left ear; Note: Date Diagnose d: 6 1:49 PM (H93.12) Not Available [facility] 4 02:48:21 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 89900585 Active 2017 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, unspecif ied side; Note: Changed from M26.62 to M26.629 (01/08/20 23 2:39 PM) , Date Diagnose d: 11/17/2017 2:11 PM (M26.62) Not Available [facility] 4 02:48:26 Otalgia of left ear 7879103253 Active 2017 Otalgia, left ear; Note: Date Diagnose d: 11/17/2017 2:11 PM (H92.02) Otalgi a, left ear; Note: Date Diagnose d: 6 1:23 PM (H92.02) ; Start Date : 06/27/19 16 Not Available [facility] 4 02:48:25 Adhesive middle ear disease 9423194 Active 2013 Adhesive middle ear disease, unspecif ied as to involvem ent; Location : right CM S Risk: minimal risk CMS Treatmen t: self-cabrera ited or minor problem Conditio n: worse No te: Date Diagnose d: 4 4:36 PM (385.10) , Patient has a mild right anterior retracti on and left myringo- incudope xy Not Available [facility] 4 02:48:23 Sensorin eural hearing loss 87943514 Active 2015 Sensorin eural hearing loss, unilater al, left ear, with unrestri cted hearing on the contrala teral side; Note: Date Diagnose d: 6 3:27 PM (H90.42) Not Available [facility] 4 02:48:28 Disorder of nasal sinus 2098005 Active 2020 Other specifie d disorder s of nose and nasal sinuses; Note: Date Diagnose d: 06/08/20 21 10:31 AM (J34.89) Not Available [facility] 4 02:48:20 Disorder of the nose 18605097 Active 2020 Other specifie d disorder s of nose and nasal sinuses; Note: Date Diagnose d: 06/08/20 21 10:31 AM (J34.89) Not Available [facility] 4 02:48:21 Psoriasi s 3415836 Active 2019 Other psoriasi s; Note: Date Diagnose d: 0 11:50 AM (L40.8) Not Available [facility] 4 02:48:27 Sensorin eural hearing loss in left ear 25212858976 109 Active 2015 Sensorin eural hearing loss, unilater al, left ear, with restrict ed hearing on the contrala teral side; Note: Date Diagnose d: 06/01/20 16 2:10 PM (H90.A22 ) Not Available [facility] 4 02:48:29 Sensorin eural hearing loss of bilatera l ears 153742345 Active 2019 [facility] Bilatera lly; Note: Date Diagnose d: 4 4:08 PM (389.18) , Patient with bilatera l sensorin eural hearing loss affectin g all frequenc ie. Recommen d amplific ation, patient provided with a copy of todays audiogra m, medical clearanc e for hearing aids, and [facility] Follow up as needed ; Start Date : 03/12/20 14 Senso rineural hearing loss, bilatera l; Note: Date Diagnose d: 04/28/20 20 11:59 AM (H90.3) Sensor ineural hearing loss, bilatera l; Note: Date Diagnose d: 6 1:49 PM (H90.3) ; Start Date : 06/27/19 16 Not Available [facility] 4 02:48:24 Chronic serous otitis media of left ear 248797224 Active 2015 Chronic serous otitis media, left ear; Note: Date Diagnose d: 6 2:21 PM (H65.22) Not Available [facility] 4 02:48:28 Chronic serous otitis media 21210898 Active 2013 Chronic serous otitis media; Location [...] severity of hearing loss Not Available [facility] 4 02:48:22 Mixed conducti ve and sensorin eural hearing loss of right ear 06887782470 105 Active 2015 Mixed conducti ve and [...] 16 2:10 PM (H90.A31 ) Not Available [facility] 4 01:08:24 Tobacco user 820429210 Completed 201701/24/2024 Tobacco use; Note: Date Diagnose d: 8 11:00 AM (Z72.0) JABARI DELVALLE MD [address] [place] [address], [facility] [place], [address] , [facility] - [facility] 4 16:10:42 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 Other specifie d superfic ial mycoses; Note: Date Diagnose d: 7 1:41 PM (B36.8) Not Available [facility] 4 02:48:28 Dysfunct ion of eustachi an tube 30155960 Active 2013 Eustachi an tube dysfunct ion; Note: Date Diagnose d: 4 4:08 PM (381.81) Not Available [facility] 4 02:48:25 Otalgia 45071008 Active 2014 Otalgia; Note: Date Diagnose d: 5 2:02 PM (388.70) Not Available [facility] 4 02:48:29 Referred otalgia 31363451 Active 2019 Otalgia secondar y to TMJ; Note: Date Diagnose d: 0 2:21 PM (388.72) Not Available [facility] 4 02:48:30 Impacted cerumen 47247551 Active 2014 Impacted cerumen; [facility] Treatmen t: establis hed problem (to examiner ): stable or improved Note: Date Diagnose d: 5 1:42 PM (380.4) Not Available [facility] 4 02:48:23 Itching of skin 539653598 Active 2019 Other pruritus ; Note: Date Diagnose d: 0 2:25 PM (L29.8) Not Available [facility] 4 02:48:21 Impacted cerumen in right ear 41916461811 27977 Active 2016 Impacted cerumen, right ear; Note: Date Diagnose d: 7 4:26 PM (H61.21) Not Available [facility] 4 02:48:26 Impacted cerumen of bilatera l ears 57437597044 61922 Active 2016 Impacted cerumen, bilatera l; Note: Date Diagnose d: 7 1:58 PM (H61.23) Not Available [facility] 4 02:48:29 Chronic serous otitis media of right ear 000083691 Active 2015 Chronic serous otitis media, right ear; Note: Date Diagnose d: 6 3:57 PM (H65.21) Not Available [facility] 4 02:48:25 Bilatera l disorder of Eustachi an tubes 04793241872 90200 Active 2015 Other specifie d disorder s of Eustachi an tube, bilatera l; Note: Date Diagnose d: 6 2:21 PM (H69.83) Not Available [facility] 4 02:48:27 Otalgia of right ear 2603024724 Active 2017 Otalgia, right ear; Note: Date Diagnose d: 8 10:49 AM (H92.01) Otalgi a, right ear; Note: Date Diagnose d: 5 2:03 PM (H92.01) [mapped from ICD9 code: 388.70] ; Start Date : 01/03/20 15 Not Available [facility] 4 02:48:22 Chronic serous otitis media 56767871 Active 2023 JABARI DELVALLE MD [address] [place] [address], [place], [address] , [facility] 4 16:07:04 Problem Notes None recorded. Procedures Surgical History Date Name Laterality Status Provider Name and Address Organization Details Recorded Time 06/18/19 25 Air & Speech Audio with Tymps (03992, 72030 & 99344) completed BALA WASSERMAN [address] [place] [address], [place], [address], [facility] - [facility] 06/18/2024 15:27:33 05/18/20 24 MYRINGOTOMY, BILATERAL, WITH TUBE INSERTION (SURG) completed Freedom Lozano [place] - [facility] 05/21/2024 11:01:39 01/24/20 24 Cerumen removal with microscope bilateral completed JABARI DELVALLE MD [address] [facility],[place] [address], [place], [address], [facility] - [facility] 01/24/2024 16:10:57 11/24/19 24 Cerumen removal without microscope bilat completed ANTHONY APONTE PA-C [address] [facility] [address], [place], [address], [facility] - [facility] 11/24/2023 17:07:33 11/24/19 24 Tympanometry (91794) completed Roxy Rico [place] - [facility] 11/24/2023 16:43:26 11/24/19 24 Air & Bone Audio (31161) completed Roxy Rico [place] - [facility] 11/24/2023 16:45:17 Myringotomy Tube Placement completed Amber Kebede [place] - [facility] 01/24/2024 15:34:07 Imaging Results None recorded. Procedure [...] mg tablet 2020 active Medicati on ID: 695809 B rand Name: atorvast atin Sen d Method: E-Prescr ibed Sub s Allowed: subs OK Medic ationGen ericName : atorvast atin Not Available Not Available Not Available bupropion HCl SR 150 mg tablet,12 hr sustained -release 2020 active Medicati on ID: 126214 B rand Name: bupropio n HCl Send [...] topical cream 06/08 completed Medicati on ID: 644475 B rand Name: Lotrison e Send Method: E-Prescr ibed Sub s Allowed: subs OK Speci al Instruct ion: apply to external ear tid X 2 weeks Me dication GenericN emily: Lotrison e Medica tion ID: [id number] B rand Name: Lotrison e Send Method: E-Prescr ibed Sub s Allowed: subs OK Speci al Instruct ion: apply to external ear tid X 2 weeks Me dication GenericN emily: Lotrison e Not Available Not Available Not Available clotrimaz ole-betam ethasone 1 %-0.05 % lotion 06/08 completed Medicati on ID: 276373 P rescribe d By Name: TONNY Tejeda [...] topical cream 01/23 completed Medicati on ID: 489113 B rand Name: betameth asone, augmente d Send Method: E-Prescr ibed Sub s Allowed: subs OK Medic ationGen ericName : betameth asone, augmente d Not Available Not Available Not Available Ciloxan 0.3 % eye drops 01/23 completed Medicati on ID: 774552 D uration Value: 3 Prescri bed By Name: Hector Barber nd Name: Ciloxan Send Method: E-Prescr ibed Sub s Allowed: subs OK Speci al Instruct ion: Instill 4 drops twice a day into affected ear for 3 days [facility]: Ciloxan Not Available Not Available Not Available sulfameth oxazole 800 mg-trimet hoprim 160 mg tablet TAKE 1 TABLET TWICE DAILY FOR 10 DAYS active Not Available Not Available No t Available aspirin 81 mg tablet,de layed release 2020 active Medicati on ID: 515962 B rand Name: aspirin Send Method: E-Prescr [...] applicato r 2020 active Medicati on ID: 132929 B rand Name: hydrocor tisone S end [...] mg capsule 2020 active Medicati on ID: 271047 B rand Name: tamsulos in Send Method: [...] right ear 01/23 completed Medicati on ID: 30431 Pr escribed By Name: TONNY Crisostomo nd Name: antipyri ne-benzo rohan Se nd Method: E-Prescr ibed Sub s Allowed: subs OK Speci al Instruct ion: as needed for discomfo rt Medic ationGen ericName : antipyri ne-benzo rohan Not Available Not Available Not Available hydrocort isone 1 % topical cream 2020 active Medicati on ID: 881745 B rand Name: hydrocor tisone S end [...] mg tablet 2020 active Medicati on ID: 323864 B rand Name: lisinopr il Send Method: [...] mg tablet 2020 active Medicati on ID: 715719 B rand Name: loratadi ne Send Method: [...] topical cream 06/08 completed Medicati on ID: 277617 Dariana daniels By Name: TONNY Tejeda nd Name: angelina ne Send Method: E-Prescr ibed Sub s Allowed: subs OK Speci al Instruct ion: Apply to external ear BID X 1 week as needed Marie Perezadolph Name: angelina ne Not Available Not Available Not Available [...] 24 hr 2020 active Medicati on ID: 359645 B rand Name: alfuzosi n Send Method: [...] TAKE 1 TABLET BY MOUTH EVERY DAY [facility] cation nericNam e: duloxeti ne Not Available Not Available Not Available pregabali n 150 mg capsule 2020 active Medicati on ID: 923537 B rand Name: pregabal in Send Method: E-Prescr ibed Sub s Allowed: subs OK Medic ationGen ericName : pregabal in Not Available Not Available Not Available antipyrin e-benzoca ine 3 drop into right ear as directed 06/08 completed Medicati on ID: 51073 Br and Name: antipyri ne-benzo rohan Se [...] mg capsule 2020 active Medicati on ID: 568694 B rand Name: Fish Oil Send Method: E-Prescr ibed Sub s Allowed: subs OK Medic ationGen ericName : Fish Oil Not Available Not Available Not Available hydrochlo rothiazid e 12.5 mg tablet TAKE 1 TABLET BY MOUTH EVERY DAY IN THE MORNING active Not Available Not Available No t Available Athlete's Foot (clotrima zole) 1 % topical cream 01/23 completed Medicati on ID: 819116 D uration Value: 14 Prescri bed By [...] mg tablet 2020 active Medicati on ID: 866954 B rand Name: Soniaquis Send Method: E-Prescr ibed Sub s Allowed: [...] Updated DateTime 08/24/2024 182.88 cm 38.7 kg/m2 659207.83 g Kayla Chacko [place] - [facility] 08/24/2024 14:36:20 Social History Question Answer Notes LastModified by Organizat ion Details LastModified Time Tobacco Smoking Status Former Smoker JABARI DELVALLE MD [address] [place] [address], [place], [address], [place] - [facility] 01/24/2024 16:04:47 When Did You Quit Smoking? 1-5yearssinc elastcigaret te [id number] Information not available 01/24/2024 Sex: Unknown Functional Status None recorded. Mental Status None recorded. Family History Nothing Reported. Medical History Condition Response Anxiety Y Depression Y Sleep Disorder Y Past Encounters Encounter ID Performer Location Encounter Start Date Encounter Closed Date Diagnosis/Indication Diagnosis SNOMED-CT Code Diagnosis ICD10 Code Diagnosis Note [id number] FAITH MEDINA MD [facility] [address] [address] 08/24/2024 14:29:50 08/24/2024 14:55:40 Arthralgia of temporomandibular joint 75748071 M26.629 Bilateral disorder of Eustachian tubes 7699240698 457679 H69.93 Health Concerns Section Related Observation LastModified by Organization Detai ls LastModified Time None Recorded Concern Status LastModified by Organization Details LastModified Time None Recorded Payers Encounter Date Sequence Insurance Name Policy Number Policy Simon Covered Member ID Simon Member ID Guarantor Name 08/24/2024 1 [facility] - DOS ON OR AFTER 2022 - ONE CARE (MEDICARE REPLACEMENT/ADV ANTAGE - HMO) Steven Subramanian [id number] Steven Subramanian Notes Date Note Type Note Provider Name and Address Organization Details Recorded Time 08/24/2024 text/html 59-year-old male with T tubes presents for reevaluation of right ear pain. He reports minimal improvement with topical DermOtic. This pain occurs 2-3 times weekly. He denies inciting events. He does have a history of arthritis. FAITH MEDINA MD [address] [place] [address], [address], [facility] - [facility] 08/26/2024 08:15:56
--- OUTSIDE RECORDS SUMMARY | 2024-08-27 13:54 | XMS_ITS | Data Portability ---
Author Organization [employer] Address [address] [place] [address] Care Team Providers Care Shake Splitter Name Role Phone [facility] Referring Provider [facility] Referring Provider [phone] Assessment No assessment recorded. Plan of Treatment Reminders Order Date Submit Date Provider Last Modified By Organization Details Last Modified Time Details Appointments None recorded. Lab None recorded. Referral None recorded. Procedures None recorded. Surgeries None recorded. Imaging None recorded. Medication Orders cephalexin 500 mg capsule 2023 024 [facility][id number], [address] [place], [address], 4 20:15:29 cephalexin 500 mg capsule 2023 [...] Available Not Available No t Available omega 8-etz-wdz-fi sh oil 1,000 mg (120 mg-180 mg) [...] Updated DateTime 4 86 /min 18 /min 493234. 72 g 98.6 [degF] 98 % 98 % 154 mm[Hg] 94 mm[Hg] Not Available [employer] [facility] [employer] [employer] 4 20:11:37 Date Recorded Respiratory rate Oxygen saturation Oxygen saturation in Arterial blood by Pulse oximetry Body temperature Heart rate Systolic blood pressure Diastolic blood pressure Provider Name and Address Organization Details Last Updated DateTime 2 20 /min 94 % 94 % 97.7 [degF] 74 /min 125 mm[Hg] 75 mm[Hg] Not Available [employer] [facility] [employer] 2 07:41:40 Social History None recorded. Functional Status None recorded. Mental Status None recorded. Family History Nothing Reported. Medical History No medical history recorded. Past Encounters Encounter ID Performer Location Encounter Start Date Encounter Closed Date Diagnosis/Indication Diagnosis SNOMED-CT Code Diagnosis ICD10 Code Diagnosis Note [id number] Lucia Khoury MD [facility] [address] [place] [phone] 12/05/2021 07:41:38 02/10/2022 10:34:04 History of deep vein thrombosis 172886043 Z86.718 56 year old male with chronic [...] primary regarding why this change was made. [id number] Arsalan Vera MD [facility] [address] [place] [id number] 06/23/2023 20:11:26 06/23/2023 22:45:58 Cellulitis of left lower limb [id number] 4938803 L03.116 Reports increased redness and swelling of LLE. On enoxaparin for history of DVT. No new swelling. Pulses normal per director energy. No fevers, chills, systemic symptoms. Plan for empiric treatment with cephalexin and PCP follow-up Health Concerns Section Related Observation LastModified by Organization Detai ls LastModified Time None Recorded Concern Status LastModified by Organization Details LastModified Time None Recorded Advance Directives Directive None Recorded Payers Encounter Date Sequence Insurance Name Policy Number Policy Simon Covered Member ID Simon Member ID Guarantor Name 12/04/2021 1 [facility] - DOS PRIOR TO 2022 - DUAL ELIGIBLE (MEDICARE REPLACEMENT/ADV ANTAGE - HMO) Steven Subramanian [id number] Steven Subramanian 06/23/2023 1 [facility] - DOS ON OR AFTER 2022 - DUAL ELIGIBLE - [facility] OPTIONS AND ONE CARE (MEDICARE REPLACEMENT/ADV ANTAGE - HMO) Steven Subramanian [id number] Steven Subramanian Notes Date Note Type Note [...] ................... ................... ................... ................... ................... ................... ........ Overhauler Note: Patient bilateral lower extremity pain times [...] ........ Disposition: Fulfilled Lucia Khoury MD [address] [facility],[address], [place], [address], [facility] 12/05/2021 07:49:52 06/23/2023 text/html HPI: Chronic deep [...] ................... ................... ................... ................... ................... ................... ........ Overhauler Note From Gatito Rios: Pt co itchy redness on left lower extremity that is also painful. Pt denies fever nausea vomiting diarrhea. Baseline vitals assessed. Extremity redish warm to touch . No edema. [facility] contacted pics uploaded ?500mg keflex given po and RX called in . Pt education on signs indicating the ER. ................... ................... ................... ................... ................... ................... ................... ........ Disposition: Fulfilled Arsalan Vera MD [address] [facility],[address], [place], [address], [facility] 06/23/2023 21:40:40
--- OUTSIDE RECORDS SUMMARY | 2024-08-27 13:54 | XMS_ITS ---
[facility] Address [address] [place] [address] Care Team Providers Care Group Home Paraprofessional Name Role Phone Name Leland MIMS Primary Care Provider Unavailabl e Black, Yaquelin Unavailable [phone] PericNalini addison Unavailable [phone] Allergies No Known Allergies REASON FOR VISIT Painful nail(s) aggrevated by shoes causing difficulty standing/walking, Foot pain Medications Medication SIG (Take, Route, Frequency, Duration) Notes Start Date End Date Status Naproxen 500 MG 1 tablet Orally WITH FOOD Twice a day for 14 days 01/28/2023 Not-Taki ng Ciclopirox 0.77 % 1 application Cnc Machine Operator ally Twice a day for 30 days [...] Piroxicam 20 MG TAKE [address] [facility] EVERY DAY WITH FOOD FOR 30 DAYS [...] 05/21/2024 Encounters Encounter Location Date Provider Diagnosis [facility] [address] [address] 05/21/2024 Nalini Dyer Tinea unguium B35.1 ; [...] Up: 2 Months, Reason: Provider Name:Nalini addison, 09/06/2024 02:30:00 PM, [address] [facility], [place], [address], Procedure Notes * Category Sub-Category Detail Notes [...] * Rajeev MCLAUGHLINOB: 3 (59 yo M)Acc No.[id number]:05/21/2024 Progress Note Patient:?Steven MCLAUGHLIN Provider:?Nalini Dyer DPM :1965???Age:59 Y???Sex:Male Jose e:05/21/2024 Address:[address] [place], [place] [id number] Pcp:Leland Brandon MD Subjective: * Chief Complaints: [...] M77.52??? Plan: * Treatment: * Procedures:?Injection:?Sm. Joint, Bursa?74325, J0702 Injection - Left 2nd interspace sm/med [...] ( 0-1) out of 10.? * Procedure Codes:?03751 DEBRI DE NAIL, 6 OR MORE, Modifiers: XS 94209 DRAIN/INJECT, JOINT/BURSA, Modifiers: XS J0702 INJ BETAMETHSN [...] Dyer DPM Date:?02/2024 Generated for Luisa john/Faxing/eTransmitting on:?08/27/2024 01:53 PM EDT History and Physical Notes * HPI (History [...]
--- OUTSIDE RECORDS SUMMARY | 2024-08-27 13:54 | XMS_ITS | Referral Summary ---
Author Organization [facility] Address [address] [place] [address] Care Team Providers Care Cork Insulation Installer Name Role Phone No, Pcp Primary Care [...] Treatment Not on file Insurance Care Teams Cork Insulation Installer Relationship Specialty Start Date End Date No, Pcp HIREN PCP - General 01/29/22
--- OUTSIDE RECORDS SUMMARY | 2024-08-27 13:54 | XMS_ITS | Encounter Summary ---
Author Organization [employer] Address [address] [facility] [address] [place] [address] Care Team Providers Care Consumer Insights Intern Name Role Phone Name, Leland MIMS Primary Care Provider [phone] Reason for Visit * Reason Comments Med Refill Encounter Details Date Type Department Care Team ([facility] Contact Info) Description 10/22/2022 Refill [facility] [address], [place] [phone] Name, MD Leland [address] [place] [address] Insomnia, unspecified type Social History Tobacco Use [...] Upcoming Encounters Date Type Department Care Team ([facility] Contact Info) Description 08/30/2024 10:00 AM EDT Office Visit [facility] MED[facility]INE [address] [place] [phone] Name, [place] [address] 09/17/2024 10:15 AM EDT Office Visit [address] [address] Name, MD Leland [address] [place] [address] documented as of this encounter Visit Diagnoses Diagnosis Insomnia, unspecified type documented in this encounter Additional Health Concerns Assessment Noted Time PHQ-9 Depression Total Score: 0 09/07/19 23 1:16 PM EDT documented as of this encounter Care Teams Consumer Insights Intern Relationship Specialty Start Date End Date Name, MD Leland [address] [place] [id number] PCP - General Family Medicine 08/26/15 documented as of this encounter
--- OUTSIDE RECORDS SUMMARY | 2024-08-27 13:54 | XMS_ITS | Clinical Summary ---
Author Organization [employer] Address [address] [facility] [address] [place] [address] Care Team Providers Care Property Controller Name Role Phone Name, Leland MIMS Primary Care Provider [phone] Allergies No known active allergies Medications * This document contains information received from the source organization and may not represent a complete record from that organization. methadone (Dolophine) 10 MG/5ML solution 105 mg once a day Active Misc. Devices (Pulse Oximeter) misc to check oxygen Active sennosides (Senokot) 8.6 MG tablet take [...] ulcers (L98.499) 1 each 2 023 Active docusate sodium (Colace) 100 [...] for 21 days. 1 each 024 Active albuterol 108 (90 Base) MCG/ACT inhaler Inhale 2 puffs every 6 (six) hours if needed for wheezing. 18 g 11 024 2024 Active fluticasone (Flonase) 50 MCG/ACT nasal sprayIndication [...] or split. 100 tablet 1 024 Active Diclofenac Sodium 1 % gelIndications: Low back pain due to bilateral sciatica Use to affected area bid 60 g 025 Active DULoxetine (Cymbalta) [address] capsule TAKE 1 CAPSULE BY MOUTH TWICE DAILY. DO NOT BREAK, CRUSH, DISSOLVE OR CHEW 60 capsule 025 Active lisinopril 10 MG tablet Take 1 tablet (10 mg) by mouth Once per day. 90 tablet 1 025 2025 Active gabapentin (Neurontin) 800 MG tabletIndicatio ns:Chronic pain syndrome TAKE 1 TABLET BY MOUTH THREE TIMES DAILY 90 tablet 3 025 Active Anoro Ellipta 62.5-25 MCG/ACT aerosol powder Inhale 1 puff Once per day. 025 Active dexAMETHasone (Decadron) 4 MG tabletIndicatio ns:Neurogenic claudication due to lumbar spinal stenosis Take 1 tablet (4 mg) by mouth with breakfast and with evening meal for 7 days. 14 tablet 025 Active zolpidem (Ambien) 10 MG tabletIndicatio ns:Insomnia, unspecified type TAKE 1 TABLET BY MOUTH AT BEDTIME NEEDED FOR SLEEP 28 tablet 025 Active Xarelto 15 MG tablet Take 15 mg by mouth. 025 2024 Active Xarelto 20 MG tablet Take 20 mg by mouth. Do not start before September 07, 2024. 025 Active Silver (SilvaSorb) gel Apply to ulcer on the left leg Active mometasone (Elocon) 0.1 % ointmentIndicat ions:Venous stasis dermatitis of both lower extremities Apply topically Once per day. APPLY TOPICALLY EVERY DAY IN THE MORNING 45 g 3 Active Neomycin-Bacitr acin-Polymyxin (Triple Antibiotic) 3.5-400-5000 ointment Apply thin layer to affected skin 14 g 2 023 2024 Discontinued varenicline (Chantix) 1 MG tabletIndicatio ns:Tobacco use Take 1 tablet (1 mg) by mouth 2 times daily. Take with full glass of water. 60 tablet 3 024 2024 Discontinued ibuprofen 600 MG tablet Take 1 tablet by mouth 2 times daily. 2024 Discontinued(T herapy completed) hydroCHLOROthia zide 12.5 MG tablet Take 1 tablet by mouth in the morning. 2024 Discontinued(M ed list cleanup (will not trigger notification to Pharmacy)) lisinopril 10 MG tablet TAKE 1 TABLET BY MOUTH DAILY IN THE MORNING 90 tablet 1 024 2024 Discontinued(R eorder (will not trigger notification to Pharmacy)) mometasone (Elocon) 0.1 % ointmentIndicat ions:Venous stasis dermatitis of both lower extremities APPLY TOPICALLY EVERY DAY IN THE MORNING 45 g 3 024 2024 Discontinued(R eorder (will not trigger notification to Pharmacy)) Enoxaparin Sodium 120 MG/0.8ML solution prefilled syringe Inject 0.8 mL (120 mg) as directed 2 times daily. 48 mL 11 024 2024 Discontinued(I neffective) gabapentin (Neurontin) 800 MG tabletIndicatio ns:Chronic pain syndrome TAKE 1 TABLET BY MOUTH THREE TIMES DAILY 90 tablet 3 024 2024 Discontinued(R eorder (will not trigger notification to Pharmacy)) dexAMETHasone (Decadron) 4 MG tablet Take 1 tablet (4 mg) by mouth with breakfast and with evening meal for 7 days. 14 tablet 025 2024 Discontinued zolpidem (Ambien) 10 MG tabletIndicatio ns:Insomnia, unspecified type TAKE 1 TABLET BY MOUTH AT BEDTIME NEEDED FOR SLEEP 28 tablet 2024 Discontinued(R eorder (will not trigger notification to Pharmacy)) methocarbamol (Robaxin) 750 MG tablet Take 1 tablet (750 mg) by mouth 3 times daily for 10 days. 30 tablet 025 2024 Discontinued cephalexin (Keflex) 500 MG capsule Take 1 capsule (500 mg) by mouth 3 times daily for 10 days. 30 capsule 025 2024 tiZANidine (Zanaflex) 2 MG tablet Take 1 tablet (2 mg) by mouth every 8 (eight) hours if needed for muscle spasms for up to 10 days. 30 tablet 2024 Discontinued(T herapy completed) sulfamethoxazol e-trimethoprim (Bactrim DS) 800-160 MG tabletIndicatio ns:Cellulitis of left lower extremity Take 1 tablet by mouth 2 times daily for 10 days. 20 tablet 025 2024 baclofen (Lioresal) 20 MG tabletIndicatio ns:Neurogenic claudication due to lumbar spinal stenosis Take 1 tablet (20 mg) by mouth 3 times daily for 10 days. 30 tablet 2024 Discontinued mupirocin (Bactroban) 2 % ointmentIndicat ions:Cellulitis of left lower extremity Apply topically 3 times daily for 10 days. 22 g 2024 cephalexin (Keflex) 500 MG capsule Take 500 mg by mouth. 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 that if problem persists or is worse he should go to the hospital to be evaluated Assessment & Plan (04/17/2024 3:54 PM EST): [...] to the hospital, case was presented to [facility] I let them know patient should have a CTA to r/o pulmonary embolism Connell's cyst of knee, right 02/07/2024 Assessment & Plan (02/07/2024 3:06 PM EDT): I will refer him to orthopedics to address his pain Hammer toe of right foot 03/29/2023 023 Neuropathy 03/29/2023 03/29/2023 Other acquired deformities of left foot 03/29/20 23 03/29/2023 care home (current) use of opiate analgesic 03/1303/23/2023 Overview [...] patient 03/20/2018 Chronic peripheral venous hypertension 8 Neurogenic claudication due to lumbar spinal michele nosis 09/27/2017 Assessment & Plan (08/07/2024 4:55 PM EST): I will prescribe for patient dexamethasone 4 mg twice a day for 7 days I will prescribe for patient baclofen 20 mg every 8 hours, patient is aware of side effects and remains, he knows he cannot drive or do any activity that requires his concentration while on this medication Follow-up with pain management Swelling of lower limb 09/27/2017 Recurrent deep [...] decreased range of motion. Patient follows at [facility] and has been treated with injections Claustrophobia [...] stools 09/21/20222023 Shortness of breath 09/21/2022 09/14/19 24 Assessment & Plan (09/21/2022 2:56 PM EDT): [...] 11/22/2017 09/14/2023 Disorder of vein 11/11/2017 09/14/2023 Shoulder pain 01/20/2016 09/14/2023 Acute deep vein thrombosis of lower limb 12/12/2015 09/14/2023 Acute pulmonary embolism 12/12/201504/2023 Dyspepsia 02/02/2010 09/14/2023 Encounters Date Type Department Care Team Description 08/20/2024 3:20 PM EDT Office Visit [facility] [address] [place] [address] Leland Brandon MD Left leg pain (Primary Dx); Presence of IVC filter; Recurrent deep vein thrombosis (CMS/HCC); Cellulitis of left lower extremity; Ulcer of left lower leg associated with varicose veins (CMS/HCC); Venous stasis dermatitis of both lower extremities; Hand eczema 08/17/2024 Patient Outreach [facility] [address] [place] [phone] Leland Brandon MD Transition Of Care (Tcm) (HDF scheduled) 08/17/[address] [address] Leland Brandon MD Hospital Follow-up 08/16/[address] [phone] Leland Brandon MD Insomnia, unspecified type 08/07/2024 1:15 PM EST Office Visit [facility] [address] [place] [phone] Stacey Wade MD Cellulitis of left lower extremity (Primary Dx); Neurogenic claudication due to lumbar spinal stenosis 08/07/2024 Travel 08/06/2024 Telephone [facility] [address] [place] [phone] Leland Brandon MD Nurse Triage 08/01/2024 2:15 PM EST Office Visit [address] [address] Leland Brandon MD Cellulitis, unspecified cellulitis site (Primary Dx); Chronic pain syndrome; Tremor of both hands 07/26/[address] [phone] Leland Brandon MD FYI 07/25/2024 Refill [facility] [address] [place] [phone] Stacey Wade MD Lumbago with sciatica, right side 07/24/[address] [address] Leland Brandon MD REQUEST ER NOTES; Med Refill (Patient walked in requesting med refill for Dexamethasone 4mg patient stated he went to pharmacy to get medication and theres no medication in the pharmacy ) 07/24/[address] [address] Leland Brandon MD Verbal Order 07/24/[address] [phone] Leland Brandon MD Nurse Triage 07/20/2024 Orders Only [address] [address] Leland Brandon MD Severe low back pain (Primary Dx); Radicular leg pain 07/17/[address] [address] Leland Brandon MD Insomnia, unspecified type 07/14/2024 12:00 PM EST Office Visit [facility] [address] [place] [phone] Leland Brandon MD Severe low back pain (Primary Dx); Neurogenic claudication due to lumbar spinal stenosis 07/14/2024 Travel 07/06/2024 9:00 AM EST Office Visit [facility] [address] [place] [phone] Leland Brandon MD Neurogenic claudication due to lumbar spinal stenosis (Primary Dx); Radicular leg pain; Severe low back pain 07/06/2024 Travel 06/25/2024 Telephone [facility] [address] [place] [phone] Keila Rojas, ANNITA Results 06/22/2024 3:45 PM EST Telemedicine [facility] [address] [place] [phone] Chrissie Cosme NP Chronic nonintractable headache, unspecified headache type (Primary Dx); Chronic joint pain 06/22/2024 Travel 06/20/2024 Refill [facility] [address] [place] [phone] Leland Brandon MD 06/18/2024 Orders Only [facility] [address] [place] [phone] Amber Ortiz MD 06/15/2024 1:40 PM EST Office Visit [facility] [address] [address] Stacey Wade MD Low back pain due to bilateral sciatica (Primary Dx) 06/15/2024 Refill [facility] [address] [place] [phone] Leland Brandon MD Insomnia, unspecified type 06/11/[address] [address] Dave Cabrera MA Chartprep from Last 3 Months Immunizations Name Administration [...] 10:15 AM EDT Sexual Orientation Straight 12/08/2023 1 :32 PM EDT Sexual Orientation Asexual 12/08/2023 1: [...] Mass Index 39.98 08/20/2024 3:12 PM EDT Plan of Treatment Upcoming Encounters Date Type Department Care Team (Late st Contact Info) Description 08/30/2024 10:00 AM EDT Office Visit [facility] [address] [place] [phone] NameLeland MD [address] [place] [phone] 09/17/2024 10:15 AM EDT Office Visit [facility] [address] [place] [phone] NameLeland MD [address] [place] [phone] Health Maintenance Due Date Last Done Comments CT Colonography 1965 FIT DNA/Cologuard 1965 FIT 1965 FOBT 1965 Sigmoidoscopy 1965 RSV Patients and Patients Aged 60 years or older (1 - Risk 60-74 years 1-dose series) 2023 COVID-19 Vaccine ( season) 2024 06/18/2021, 10/30/2020, 10/02/2020 SDOH Screening 09/05/2024 09/06/2023 Depression Screening 09/13/2024 09/14/2023, 09/14/19 Alcohol/Substance Use Screening 12/13/2024 12/14/2023 Tobacco Screening 08/07/2025 08/07/2024 DTaP/Tdap/Td Vaccines (2 - Td or Tdap) [...] patient's age to complete this topic Hepatitis A Vaccines Aged Out No long er eligible [...] :05 PM EST Tremor of both hands MR LUMBAR SPINE WO CONTRAST Routine 07/16/2024 [...] Recently Relevant to Health Maintenance Results * TSH W/Reflex to FT4 (08/01/2024 3:05 PM EST) TSH reflex Free T4 0.69 0.32 - 4.0 uIU/mL [facility] Blood Venous blood specimen / Unknown 08/01/2024 3:05 PM EST 08/01/2024 4:20 PM EST us Leland Brandon MD LAB BLOOD ORDERABLES Final Resul t [facility] [address] [place] [phone] * MR Lumbar Spine w/o Contrast (07/16/2024 6:25 PM EST) Anatomical Region Laterality Modality Spine, L-spine Magnetic Resonan ce 07/16/2024 6:25 PM EST Narrative 07/17/2024 7:57 AM EST ? [facility] ?[address] ?[place] [address] ? Magnetic Resonance Report ? Signed ? Patient: Steven Novak ?MR#: M ?? [id number] ? : 1965 ?Acct:[id number] ? Age/Sex: 59 / M ?ADM Date: 07/16/24 ? Loc: HO.MRI ? Attending Dr: Leland Brandon MD ? Ordering Physician: Leland Brandon MD ?? Date of Service: 07/16/24 ?? Procedure(s): MR lumbar spine wo con ?? Accession Number(s): [id number] ? cc: Leland Brandon MD ? EXAMINATION: [...] DD/ 1825 ? TD/TT: 07/16/24 1855 ? Forest Scientist: ? Procedure Note Mery Saeed - 07/17/2024 [facility] [address] [place] [address] Magnetic Resonance Report Signed Patient: Michele Novak#: M [id number] : 1965Acct:[id number] Age/Sex: 59 / MADM Date: 07/16/24 Loc: HO.MRI Attending Dr: Leland Brandon MD Ordering Physician: Leland Brandon MD Date of Service: 07/16/24 Procedure(s): MR lumbar spine wo con Accession Number(s): [id number] cc: Leland Brandon MD EXAMINATION: MR LUMBAR [...] 07/17/24 0755 DD/ 1825 TD/TT: 07/16/24 1855 Forest Scientist: us Leland Roma MIMS IMDonovan MRI PROCEDURES Edited Result - Final * XR Sacrum Coccyx 2+ Views (06/19/2024 8:32 AM EST) Anatomical Region Laterality Modality Sacrum, Coccyx Radiographic Rasheeda ging 06/19/2024 8:32 AM EST Narrative 06/19/2024 8:34 AM EST ? [facility] ?[address] ?[place] [address] ?XRay Report ? Signed ? Patient: Steven Novak ?MR#: M ?? [id number] ? : 1965 ?Acct:[id number] ? Age/Sex: 59 / M ?ADM Date: /06/25 ? Loc: HO.XRAY ? Attending Dr: Amber Ortiz MD ? Ordering Physician: Amber Ortiz MD ?? Date of Service: 06/18/24 ?? Procedure(s): XR sacrum coccyx min 2V ?? Accession Number(s): [id number] ? cc: Amber Ortiz MD; Name,Leland MIMS [...] ? DD/ 1 ? TD/TT: 06/19/24831 ? Forest Scientist: ? Procedure Note Donmodestoeltonter, Image - 06/19/2024 [place] [address] XRay Report Signed Patient: Michele Novak#: M [id number] : 1965Acct:[id number] Age/Sex: 59 / MADM Date: 06/18/24 Loc: ROLLY Attending Dr: Amber Ortiz MD Ordering Physician: Amber Ortiz MD Date of Service: 06/18/24 Procedure(s): XR sacrum coccyx min 2V Accession Number(s): [id number] cc: Amber Ortiz MD; Name,Leland MIMS CLINICAL [...] Germain MD in OV> 06/19/24 0833 DD/ TD/TT: 06/19/24831 Forest Scientist: us Amber Ortiz MD IMG XR PROCEDURES Edited Result - Final * XR Hips Bilateral 3 or 4 Views with or without Pelvis (06/19/2024 8:31 AM EST) Anatomical Region Laterality Modality Lower Extremities, Hip Bilateral Radiograp hic Imaging 06/19/2024 8:31 AM EST Narrative 06/19/2024 8:32 AM EST ? [facility] ?[address] ?[place] [address] ?XRay Report ? Signed ? Patient: Steven Novak ?MR#: M ?? [id number] ? : 1965 ?Acct:[id number] ? Age/Sex: 59 / M ?ADM Date: 06/18/24 ? Loc: HO.XRAY ? Attending Dr: Amber Ortiz MD ? Ordering Physician: Amber Ortiz MD ?? Date of Service: 06/18/24 ?? Procedure(s): XR hip RAINE min 3V w/wo pel ?? Accession Number(s): [id number] ? cc: Amber Ortiz MD; Name,Leland MIMS [...] DD/ 0831 ? TD/TT: 06/19/24 0831 ? Forest Scientist: ? Procedure Note Darlin, Image - 06/19/[address] [address] XRay Report Signed Patient: Michele Novak#: M [id number] : 1965Acct:[id number] Age/Sex: 59 / MADM Date: 06/18/24 Loc: VANESSA.MAEGAN Attending Dr: Amber Ortiz MD Ordering Physician: Amber Ortiz MD Date of Service: 06/18/24 Procedure(s): XR hip RAINE min 3V w/wo pel Accession Number(s): [id number] cc: Amber Ortiz MD; Name,Leland MIMS CLINICAL [...] in OV> 06/19/2432 DD/ 0 TD/TT: 06/19/24830 Forest Scientist: Amber Ortiz MD IMG XR PROCEDURES Edited Result - Final * XR Lumbar Spine 2-3 Views (06/18/2024 4:40 PM EST) Anatomical Region Laterality Modality Spine, L-spine Radiographic Rasheeda ging 06/18/2024 4:40 PM EST Narrative 06/18/2024 4:41 PM EST ? [facility] ?[address] ?[place] [address] ?XRay Report ? Signed ? Patient: Moris Francisco,Steven ?MR#: M ?? [id number] ? : 1965 ?Acct:[id number] ? Age/Sex: 59 / M ?ADM Date: 01/06/25 ? Loc: HO.XRAY ? Attending Dr: Amber Ortiz MD ? Ordering Physician: Stacey Wade MD ?? Date of Service: 06/18/24 ?? Procedure(s): XR lumbar spine 2-3V ?? Accession Number(s): [id number] ? cc: Stacey Wade MD; Name,Leland MIMS [...] DD/ 1640 ? TD/TT: 06/18/24 1640 ? Forest Scientist: ? Procedure Note Darlin, Image - 06/18/2024 [place] [address] XRay Report Signed Patient: Michele Novak#: M [id number] : 1965Acct:[id number] Age/Sex: 59 / MADM Date: 06/18/24 Loc: ROLLY Attending Dr: Amber Ortiz MD Ordering Physician: Stacey Wade MD Date of Service: 06/18/24 Procedure(s): XR lumbar spine 2-3V Accession Number(s): [id number] cc: Stacey Wade MD; Name,Leland MIMS CLINICAL [...] 06/18/24 1640 DD/ 1640 TD/TT: 06/18/24 1640 Forest Scientist: us Stacey Maldonado MD IMG XR PROCEDURES Fin al Result * Hepatitis C Antibody with Reflex to HCV, RNA, Quantitative, Real-Time PCR (10/14/2023 11:05 AM EDT) Hepatitis C Antibody Nonreactive Nonreactive [facility] Comment:Antibodies to HCV no t detected; does not exclude early acuteHCV infection. Blood Venous blood specimen / Unknown 10/14/2023 11:05 AM EDT 10/14/2023 1:15 PM EDT Leland Brandon MD LAB BLOOD ORDERABLES Final Resul t [facility] [address] [place] [phone] * HIV-1/2 Antigen and Antibodies, Fourth Generation, with Reflexes (10/14/2023 11:05 AM EDT) HIV AB/AG Nonreactive Nonreactive [facility] Comment:HIV-1 p24 Ag and/or HIV-1/HIV-2 Ab not detected.A test result that is nonreactive does not exclude thepossibility of exposure to or infection with HIV-1 and/orHIV-2. Nonreactive results in this assay for individualswith prior exposure to HIV-1 and/or HIV-2 may be due toantigen and antibody levels that are below the limit ofdetection of this assay.The EpitironiSounder HIV Ag/Ab Combo assay result andsupplemental assay results should be interpreted inconjunction with the patient's clinical presentation,history and other laboratory results. If the results areinconsistent with clinical evidence, additional testing issuggested to confirm the result. Blood Venous blood specimen / Unknown 10/14/2023 11:05 AM EDT 10/14/2023 1:15 PM EDT us Leland Brandon MD LAB BLOOD ORDERABLES Final Resul t Performing Organization Address [facility] de Phone Number [facility] [address] [place] [phone] * (ABNORMAL) Lipid Panel, Standard (10/14/2023 11:05 AM EDT) Triglycerides 105 <150 mg/dL [facility] Comment:Desirable Triglyceri de: less than 150 mg/dLBorderline High Triglyceride 150-199 mg/dLHigh Triglyceride: 200-499 mg/dLVery High Triglyceride: greater than or equal to 5OO mg/dL Cholesterol 192 <200 mg/dL [facility] Comment:Desirable Cholestero l: less than 200 mg/dLBorderline High Cholesterol: 200-239 mg/dLHigh Cholesterol: greater than 239 mg/dL LDL Cholesterol Calculated 102(H) <100 mg/dL [facility] Comment:Desirable LDL: less than 100 mg/dLNear Optimal/Above Optimal LDL: 110- 129 mg/dLBorderline High LDL: 130-159 mg/dLHigh LDL: 160-189 mg/dLVery High LDL: greater than or equal to 190 mg/dL HDL Cholesterol 69 >40 mg/dL [facility] Comment:Desirable HDL: great er than 40 mg/dL Note: This HDL assay may give artificially low results in patients with liver disease. Blood Venous blood specimen / Unknown 10/14/2023 11:05 AM EDT 10/14/2023 1:15 PM EDT us Leland Brandon MD LAB BLOOD ORDERABLES Final Resul t Performing Organization Address [facility] Co de Phone Number [facility] [address] [place] [phone] * Hm Colonoscopy (07/14/2023) Colonoscopy Normal Normal Comment:Normal Colonoscopy r epeat 10 years us Leland Brandon MD HEALTH MAINTENANCE Final Result from Last 3 Months or Most Recently Relevant to Health Maintenance Insurance [facility] Care Teams Property Controller Relationship Specialty Start Date End Date Name, MD Leland [address] [place] [phone] PCP - General Family Medicine 08/26/15
--- OUTSIDE RECORDS SUMMARY | 2024-08-27 13:54 | XMS_ITS | Clinical Summary ---
Author Organization [facility] Address [address] [place] [address] Care Team Providers Care Oil Burner Servicer And Installer Name Role Phone No, Pcp Primary [...] - Td or Tdap) 03/20/2028 03/20/2018, 07/09/1998 Zoster Vaccines Completed 08/26/2020, 06/25/2020 Hepatitis B Vaccines Aged Out No long er eligible based on patient's age to complete this topic Insurance [facility] Care Teams Oil Burner Servicer And Installer Relationship Specialty Start Date End Date No, Pcp HIREN PCP - General 01/29/22
--- OUTSIDE RECORDS SUMMARY | 2024-08-27 13:54 | XMS_ITS | Encounter Summary ---
Author Organization [employer] Address [address] [facility] [address] [place] [address] Care Team Providers Care Rubber Curer Name Role Phone Name, Leland MIMS Primary Care Provider [phone] Reason for Visit * Reason Onset Date Comments Med Refill 05/25/2024 Encounter Details Date Type Department Care Team ([facility] st Contact Info) Description 05/25/2024 Telephone [facility] [address] [place], [place] [phone] Name, MD Leland [address] [place] [address] Med Refill Social History Tobacco Use Types [...] 4 MG tablet To be sent to: [facility] documented in this encounter Plan of Treatment Upcoming Encounters Date Type Department Care Team (Late st Contact Info) Description 08/30/2024 10:00 AM EDT Office Visit [facility] [address] [place] [phone] NameLeland MD [address] [place] [phone] 09/17/2024 10:15 AM EDT Office Visit [facility] [address] [place] [phone] Name, MD Leland [address] [place] [address] documented as of this encounter Visit Diagnoses Not on filedocumented in this encounter Additional Health Concerns Assessment Noted Time PHQ-9 Depression Total Score: 0 09/14/19 24 3:10 PM EDT documented as of this encounter Care Teams Rubber Curer Relationship Specialty Start Date End Date Name, MD Leland [address] [place] [address] PCP - General Family Medicine 08/26/15 documented as of this encounter
== END 2024-08-27 12:10 | disposition home or self-care (01) ==
LOC: HO.PMC 11:40
PROVIDERS: PCP Internal Medicine Geriatric Medicine; Visit Provider Nurse Practitioner Family
DX: M48.062 Spinal stenosis, lumbar region with neurogenic claudication (principal); Z79.891 Long term (current) use of opiate analgesic; M54.9 Dorsalgia, unspecified; G89.29 Other chronic pain; I83.12 Varicose veins of left lower extremity with inflammation; M51.369 Other intervertebral disc degeneration, lumbar region without mention of lumbar back pain or lower extremity pain; M47.817 Spondylosis without myelopathy or radiculopathy, lumbosacral region
CPT/HCPCS: 99204; G2211

== ENCOUNTER → 2024-08-27 11:39 | Outpatient (BNVA) | payer OTHER, SELFPAY | PROVIDERS: PCP Internal Medicine Geriatric Medicine; Visit Provider Nurse Practitioner Family | DX: M48.062 Spinal stenosis, lumbar region with neurogenic claudication (principal); M54.9 Dorsalgia, unspecified; M51.369 Other intervertebral disc degeneration, lumbar region without mention of lumbar back pain or lower extremity pain; M47.817 Spondylosis without myelopathy or radiculopathy, lumbosacral region; F11.20 Opioid dependence, uncomplicated; G89.29 Other chronic pain; I83.12 Varicose veins of left lower extremity with inflammation | CPT/HCPCS: 99202 ==

== ENCOUNTER 2024-08-31 10:37 | Outpatient (REF) | payer OTHER, SELFPAY ==
--- NOTE | ~2024-08-31 | XR_ITS ---
EXAMINATION: XR LUMBAR SPINE 4 OR MORE VIEWS HISTORY: M48.062 - Spinal stenosis, lumbar region with neurogenic claudication COMPARISON: Comparison is made with the prior examination dated 06/18/2024. FINDINGS: AP, and neutral, flexion, and extension lateral views of the lumbar spine are submitted. Osseous mineralization is normal. There is mild rotatory dextroscoliosis. The vertebral bodies maintain normal height without evidence of fracture. There is grade I spondylolisthesis of L4 on L5. There is no significant change in flexion or extension. There is mild to moderate degenerative disc disease with disc space narrowing and osteophyte formation. There is osteoarthritis of the lower lumbar facet joints. And IVC filter is seen in place. XR/XR lumbar spine 4V min IMPRESSION: Mild rotatory dextroscoliosis. Grade I spondylolisthesis of L4 on L5 without significant change in flexion or extension. Mild to moderate degenerative disc disease. Electronically signed by: Cristian Herron MD 09/03/2024 01:43 PM EDT
== END 2024-08-31 10:38 | disposition home or self-care (01) ==
LOC: HO.HOSX 10:37
PROVIDERS: PCP Internal Medicine Geriatric Medicine; Referring Provider Internal Medicine Geriatric Medicine; Visit Provider Physician Assistant
DX: M48.062 Spinal stenosis, lumbar region with neurogenic claudication (principal)
CPT/HCPCS: 72110; 99202

== ENCOUNTER 2024-08-31 12:39 | Outpatient (AMB) | payer OTHER, SELFPAY ==
--- OUTSIDE RECORDS SUMMARY | 2024-08-31 12:42 | XMS_ITS | Encounter Summary ---
Author Organization [employer] Address [address] [facility] [address] 7t [place] [address] Care Team Providers Care Bilingual Medical Assistant Name Role Phone Name, Leland MIMS Primary Care Provider [phone] Encounter Details Date Type Department Care Team [...] Care Team (Late st Contact Info) Description 09/17/2024 10:15 AM EDT Office Visit [facility] MEDICINE [address] [place] [address] Name, MD Leland [address] [place] [address] documented as of this encounter Visit Diagnoses Not on filedocumented in this encounter Additional Health Concerns Assessment Noted Time PHQ-9 Depression Total Score: 0 09/14/19 24 3:10 PM EDT documented as of this encounter Care Teams Bilingual Medical Assistant Relationship Specialty Start Date End Date NameLeland MD [address] [place] [id number] PCP - General Family Medicine 08/26/15 documented as of this encounter
--- OUTSIDE RECORDS SUMMARY | 2024-08-31 12:42 | XMS_ITS | Encounter Summary ---
Author Organization [employer] Address [address] [facility] 7t [place] [address] Care Team Providers Care Head Of Digital Name Role Phone Name, Leland MIMS Primary Care Provider [phone] Reason for Visit * Reason Comments Transition Of Care (Tcm) HDF scheduled Encounter Details Date Type Department Care Team ([facility] st Contact Info) Description 08/17/2024 Patient Outreach [facility] [address] [place], [place] [phone] Name, MD Leland [address] [place] [address] Transition Of Care (Tcm) (HDF scheduled) Social [...] 08/17/24 1022 Hospital Discharges and Admission for [facility] Type of Visit Hospital Admission Date of Admission/Visit 08/13/24 Date of Discharge 08/16/24 Facility [facility] Diagnosis DVT/Cellulitis Disposition Discharged Home Follow-Up [...] Wednesdays, and Walk-In Urgent Care Located in [facility]. Patient providedwith after-hours line for [facility], , which offer night time triage service and option to transfer to airport operations crew member provider if needed. [facility] discharge summary has been scanned into patient chart for review. documented in this encounter Plan of Treatment Upcoming Encounters Date Type Department Care Team (Late st Contact Info) Description 09/17/2024 10:15 AM EDT Office Visit [facility] [address] [place] [address] Name, MD Leland [address] [place] [address] documented as of this encounter Visit Diagnoses Not on filedocumented in this encounter Additional Health Concerns Assessment Noted Time PHQ-9 Depression Total Score: 0 09/14/19 24 3:10 PM EDT documented as of this encounter Care Teams Head Of Digital Relationship Specialty Start Date End Date NameLeland MD [address] [place] [address] PCP - General Family Medicine 08/26/15 documented as of this encounter
--- OUTSIDE RECORDS SUMMARY | 2024-08-31 12:42 | XMS_ITS | Encounter Summary ---
Author Organization [employer] Address [address] [facility] 7t [place] [address] Care Team Providers Care Insurance Claims Assistant Name Role Phone Name, Leland MIMS Primary Care Provider [phone] Reason for Visit * Reason Comments Med Refill Encounter Details Date Type Department Care Team ([facility] st Contact Info) Description 06/20/2023 Refill [facility] 230 [place], [place] [phone] Name, MD Leland 230 [place] [address] Insomnia, unspecified type Social History Tobacco Use [...] 10:15 AM EDT Office Visit [facility] MEDICINE [address] [place] [phone] NameLeland MD [address] [place] [address] documented as of this encounter Visit Diagnoses Diagnosis Insomnia, unspecified type documented in this encounter Additional Health Concerns Assessment Noted Time PHQ-9 Depression Total Score: 0 09/07/19 23 1:16 PM EDT documented as of this encounter Care Teams Insurance Claims Assistant Relationship Specialty Start Date End Date Name, MD Leland [address] [place] [address] PCP - General Family Medicine 08/26/15 documented as of this encounter
--- OUTSIDE RECORDS SUMMARY | 2024-08-31 12:42 | XMS_ITS | Encounter Summary ---
Author Organization [employer] Address [address] [facility] 7t [place] [address] Care Team Providers Care Starch Mangle Tender Name Role Phone Name, Leland MIMS Primary Care Provider [phone] Reason for Visit * Reason Onset Date Comments Hospital Follow-up 08/17/2024 Encounter Details Date Type Department Care Team ([facility] st Contact Info) Description 08/17/2024 Telephone [facility] MEDICINE 230 [place] [address] Name, MD Leland [address] [place] [address] Hospital Follow-up Social History Tobacco Use Types [...] from pt requesting a HDF appt. Hospital: [facility] Date of admission: 08/12/24 Discharge date: 08/16/24 Diagnosed: blood clot in left leg documented in this encounter Plan of Treatment Upcoming Encounters Date Type Department Care Team (Late st Contact Info) Description 09/17/2024 10:15 AM EDT Office Visit [facility] MEDICINE [address] [place] [address] Name, MD Leland [address] [place] [address] documented as of this encounter Visit Diagnoses Not on filedocumented in this encounter Additional Health Concerns Assessment Noted Time PHQ-9 Depression Total Score: 0 09/14/19 24 3:10 PM EDT documented as of this encounter Care Teams Starch Mangle Tender Relationship Specialty Start Date End Date NameLeland MD 230 [place] [address] PCP - General Family Medicine 08/26/15 documented as of this encounter
--- OUTSIDE RECORDS SUMMARY | 2024-08-31 12:42 | XMS_ITS | Encounter Summary ---
Author Organization [employer] Address [address] [facility] [address] [address] 7t [place] [address] Care Team Providers Care Psychological Operations Specialist Name Role Phone Name, Leland MIMS Primary Care Provider [phone] Encounter Details Date Type Department Care Team (Late st Contact Info) Description 08/07/2024 1:15 PM EST Office Visit [facility] MEDICINE 230 [place], [place] [phone] Stacey Wade MD 230 [place] [address] Cellulitis of left lower extremity (Primary Dx); [...] old male who presents for HDF . [facility] (07/23/24-07/24/24) Patient with PMH including unprovoked DVTs/PE [...] of femoral vein of right lower extremity ([facility]/HCC) Anxiety Primary osteoarthritis of both knees Chronic deep vein thrombosis (DVT) of left lower extremity ([facility]/HCC) Chronic pain Chronic pain syndrome Chronic peripheral venous hypertension Compression fracture of vertebral column ([facility]/HCC) Constipation Depressive disorder Rotator cuff disorder Esotropia HTN (hypertension) Foot pain Heel pain Idiopathic scoliosis Osteoarthritis of right ankle and foot Insomnia Migraine without aura, not refractory Severe obesity ([facility]/HCC) Chronic narcotic use Nocturnal enuresis Opioid dependence ([facility]/HCC) Obstructive sleep apnea syndrome Neurogenic claudication due to lumbar spinal stenosis Recurrent deep vein thrombosis ([facility]/HCC) Recurrent major depression in partial remission ([facility]) Swelling of lower limb 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 Cigarette smoker Guttate psoriasis Hard of hearing Knee pain Impaired glucose tolerance Posttraumatic stress disorder Total perforation of tympanic membrane Refractive error Exotropia, 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 opiate analgesic Hammer toe [...] as needed, alternating nostrils with each dose Gwywehnr-Ktcrgjbxsw-Lprnabviy (Triple Antibiotic) 3.5-400-5000 ointment Apply thin layer [...] Bactrim twice a dayfor 10 days I financial health counselor patient that if problem persists or [...] Bactrim twice a dayfor 10 days I financial health counselor patient that if problem persists or [...] Description 09/17/2024 10:15 AM EDT Office Visit [facility] MEDICINE 230 [place] [address] Name, MD Leland [address] [place] [address] documented as of this encounter Visit Diagnoses Diagnosis Cellulitis of left lower extremity- Primary Neurogenic claudication due to lumbar spinal stenosis Spinal stenosis of lumbar region documented in this encounter Additional Health Concerns Assessment Noted Time PHQ-9 Depression Total Score: 0 09/14/19 24 3:10 PM EDT documented as of this encounter Care Teams Psychological Operations Specialist Relationship Specialty Start Date End Date Name, MD Leland [address] [facility] [place] [address] PCP - General Family Medicine 08/26/15 documented as of this encounter
--- OUTSIDE RECORDS SUMMARY | 2024-08-31 12:42 | XMS_ITS | Encounter Summary ---
Author Organization [employer] Address [address] [facility] 7t [place] [address] Care Team Providers Care Data Center Consultant Name Role Phone Name, Leland MIMS Primary Care Provider [phone] Reason for Visit * Reason Onset Date Comments Nurse Triage 08/06/2024 Encounter Details Date Type Department Care Team ([facility] st Contact Info) Description 08/06/[address] [facility] MEDICINE 230 [place] [address] Name, MD Leland [address] [place] [address] Nurse Triage Social History Tobacco Use Types [...] 08/06/2024 3:03 PM EST Triage call with [facility] crystal growing technician ID [id number] Pt is called several times and call [...] 10:15 AM EDT Office Visit [facility] MEDICINE [address] [place] [address] Name, MD Leland [address] [place] [address] documented as of this encounter Visit Diagnoses Diagnosis Osteoarthritis of right ankle and foot Swelling of lower limb documented in this encounter Additional Health Concerns Assessment Noted Time PHQ-9 Depression Total Score: 0 09/14/19 24 3:10 PM EDT documented as of this encounter Care Teams Data Center Consultant Relationship Specialty Start Date End Date Name, MD Leland [address] [place] [address] PCP - General Family Medicine 08/26/15 documented as of this encounter
--- OUTSIDE RECORDS SUMMARY | 2024-08-31 12:42 | XMS_ITS | Encounter Summary ---
Author Organization [employer] Address [address] [facility] 7t [place] [address] Care Team Providers Care Physician Gynecologist Name Role Phone Name, Leland MIMS Primary Care Provider [phone] Reason for Visit * Reason Comments Med Refill Encounter Details Date Type Department Care Team ([facility] Contact Info) Description 02/21/[address] [facility] MEDICINE [address] [place] [address] [phone] NameLeland MD [address] [place] [address] [phone] Insomnia, unspecified type Social History Tobacco Use [...] Upcoming Encounters Date Type Department Care Team ([facility] Contact Info) Description 09/17/2024 10:15 AM EDT Office Visit [facility] MEDICINE [address] [place] [address] [phone] Name, MD Leland [address] [place] [address] [phone] documented as of this encounter Visit Diagnoses Diagnosis Insomnia, unspecified type documented in this encounter Additional Health Concerns Assessment Noted Time PHQ-9 Depression Total Score: 0 09/07/19 23 1:16 PM EDT documented as of this encounter Care Teams Physician Gynecologist Relationship Specialty Start Date End Date Name, MD Leland 230 [place] [address] PCP - General Family Medicine 08/26/15 documented as of this encounter
--- OUTSIDE RECORDS SUMMARY | 2024-08-31 12:42 | XMS_ITS | Encounter Summary ---
Author Organization [employer] Address [address] [facility] 7t [place] [address] Care Team Providers Care Orthodontic Lab Technician Name Role Phone Name, Leland MIMS Primary Care Provider [phone] Reason for Visit * Reason Onset Date Comments Med Refill 08/16/2024 Encounter Details Date Type Department Care Team ([facility] st Contact Info) Description 08/16/2024 Refill [facility] MEDICINE 230 [place] [address] Name, MD Leland [address] [place] [address] Insomnia, unspecified type Social History Tobacco Use [...] Vogt LPN - 08/16/2024 3:57 PM EST LEATHER PRODUCTION MACHINE OPERATOR checked on 08/16/24. Next appointment 09/17/24. * Telephone Encounter - Loi Cobos - 08/16/2024 3:54 PM EST TC from pt requesting medication refill. Medications needing refill : zolpidem (Ambien) 10 MG tablet To be sent to: [facility] [place], [place] - [address] [place] [address] documented in this encounter Plan of Treatment Upcoming Encounters Date Type Department Care Team (Late st Contact Info) Description 09/17/2024 10:15 AM EDT Office Visit [facility] MEDICINE [address] [place] [address] Name, MD Leland [address] [place] [address] documented as of this encounter Visit Diagnoses Diagnosis Insomnia, unspecified type documented in this encounter Additional Health Concerns Assessment Noted Time PHQ-9 Depression Total Score: 0 09/14/19 24 3:10 PM EDT documented as of this encounter Care Teams Orthodontic Lab Technician Relationship Specialty Start Date End Date Name, MD Leland [address] [place] [address] PCP - General Family Medicine 08/26/15 documented as of this encounter
--- OUTSIDE RECORDS SUMMARY | 2024-08-31 12:42 | XMS_ITS | Encounter Summary ---
Author Organization [employer] Address [address] [facility] [address] 7t [place] [address] Care Team Providers Care Vegetable Cutter Name Role Phone Name, Leland MIMS Primary Care Provider [phone] Encounter Details Date Type Department Care Team (Late st Contact Info) Description 07/19/2023 Abstract [facility] MEDICINE 230 [place] [address] Name, MD Leland 230 [place], [place] [phone] Social History Tobacco Use Types Packs/Day Years [...] Description 09/17/2024 10:15 AM EDT Office Visit [facility] MEDICINE 230 [place], [place] [phone] Name, MD Leland [address] [place] [address] documented as of this encounter Procedures Procedure [...] documented as of this encounter Care Teams Vegetable Cutter Relationship Specialty Start Date End Date Name, MD Leland [address] [place] [address] PCP - General Family Medicine 08/26/15 documented as of this encounter
--- OUTSIDE RECORDS SUMMARY | 2024-08-31 12:42 | XMS_ITS | Encounter Summary ---
Author Organization [employer] Address [address] [facility] [address] 7t [place] [address] Care Team Providers Care Weight Engineer Name Role Phone Name, Leland MIMS Primary Care Provider [phone] Encounter Details Date Type Department Care Team ([facility] st Contact Info) Description 03/24/2023 Telephone [facility] MEDICINE 230 [place], [place] [phone] Name, MD Leland [address] [place], [place] [phone] Social History Tobacco Use Types Packs/Day Years [...] advise PCP pt is currently admitted to [facility] and was found with blood clots to both legs. Any questions, contact pt at [phone] documented in this encounter Plan of Treatment Upcoming Encounters Date Type Department Care Team (Late st Contact Info) Description 09/17/2024 10:15 AM EDT Office Visit [facility] MEDICINE [address] [place] [address] Name, MD Leland [address] [place] [address] documented as of this encounter Visit Diagnoses Not on filedocumented in this encounter Additional Health Concerns Assessment Noted Time PHQ-9 Depression Total Score: 0 09/07/19 23 1:16 PM EDT documented as of this encounter Care Teams Weight Engineer Relationship Specialty Start Date End Date Name, MD Leland [address] [place] [address] PCP - General Family Medicine 08/26/15 documented as of this encounter
--- OUTSIDE RECORDS SUMMARY | 2024-08-31 12:43 | XMS_ITS | Encounter Summary ---
Author Organization [employer] Address [address] [facility] 7t [place] [address] Care Team Providers Care Pest Control Applicator Name Role Phone NameLeland MD Primary Care Provider [phone] Reason for Referral * Consultation (Routine) - Authorized Specialty Diagnoses / Procedures Referred By Contac t Referred To Contact Wound Care Diagnoses Ulcer of left lower leg associated with varicose veins (CMS/HCC) Leland Brandon MD [address] [place] [address] Phone: tel: fax: [facility] [address] [place] [address] Phone: tel: fax: Referral ID Status Reason Start Date Expiration Date Visits Requested Visits Authorized [id number] Authorized Specialty Services Required 08/30/2024 08/30/2025 1 1 Reason for Visit * Reason Comments hospital follow up Encounter Details Date Type Department Care Team (Late st Contact Info) Description 08/30/2024 10:00 AM EDT Office Visit [facility] MEDICINE [address] [place] [phone] Leland Brandon MD [address] [place] [phone] Acute deep vein thrombosis (DVT) of left lower extremity, unspecified vein (CMS/HCC) (Primary Dx); Ulcer of left lower leg associated with varicose veins (CMS/HCC); Chronic midline low back pain with sciatica, sciatica laterality unspecified Social History Tobacco Use Types Packs/Day Years [...] Frequency of Binge Drinking Not on file 0708/2023 Score 0 12/14/2023 Depression Answer Date Recorded [...] Sign Reading Time Taken Comments Blood Pressure 153/79 08/30/2024 10:12 AM EDT Pulse 92 08/30/2024 10:12 AM EDT Temperature 36.7 ??C (98.1 ??F) 08/30/2024 10:12 AM E DT Respiratory Rate 22 08/30/2024 10:12 AM EDT Oxygen Saturation 98% 08/30/2024 10:12 AM EDT Inhaled Oxygen Concentration - - Weight 133 kg (293 lb 3.2 oz) 08/30/2024 10:12 A M EDT Height 182.9 cm (6') 08/30/2024 10:12 AM EDT Body Mass Index 39.77 08/30/2024 10:12 AM EDT documented in this encounter Progress Notes * Leland Brandon MD - 08/30/2024 10:00 AM EDT Subjective Patient ID: Steven Singh is a 59 y.o. male who presents for hospital follow up. Patient comes for a posthospitalization visit. He was hospitalized at [facility]. He presented with worsening left leg pain, redness, he was found to have extensive left leg DVT despite the use of Lovenox. He has failed multiple other anticoagulants in the past. The patient required placement of IVC filter for prevention of pulmonary embolism. He was evaluated by hematology in the hospital. He is now onXarelto for anticoagulation. Summary of the recent hospitalization is written below: [facility] (08/13/2024 - 08/16/2024) Patient with PMH of chronic pain and unprovoked DVT/PE on enoxaparin presented with leg pain. Ultrasound showed worsening DVT compared to the previous scan in January 2024. Heparin infusion started due to suspected enoxaparin failure. CT was negative for PE. Hematology consulted and recommended transitioning to rivaroxaban at discharge, with an IVC filter placed due to concerns of recurrent anticoagulation failure. Concern for possible cellulitis, treated initially with cefazolin, then switched to cephalexin. Discharged home. By the time of his visit today he is done using the Keflex. He does not have any redness or induration of the left calf but he continues to have a venous insufficiency ulcer that is not healing well. He complains of chronic low back pain related to DJD of the lumbar spine. He was recently [facility] and was referred to a neurosurgeon. Review of Systems Constitutional: Negative for chills, fatigue and fever. HENT: Negative for sore throat. Respiratory: Negative for cough, chest tightness and shortness of breath. Cardiovascular: Negative for chest pain, palpitations and leg swelling. Gastrointestinal: Negative for abdominal pain and blood in stool. Musculoskeletal: Positive for back pain. Visit Vitals BP (!) 153/79 (BP Location: Right arm, Patient Position: Sitting, BP Cuff Size: Large adult) Pulse 92 Temp 98.1 ??F (36.7 ??C) (Oral) Resp 22 Ht 6' (1.829 m) Wt 293 lb 3.2 oz (133 kg) SpO2 98% BMI 39.77 kg/m?? Smoking Status Former BSA 2.6 m?? Objective Physical Exam Constitutional: Appearance: Normal appearance. Cardiovascular: Rate and Rhythm: Normal rate and regular rhythm. Heart sounds: No murmur heard. Pulmonary: Effort: Pulmonary effort is normal. No respiratory distress. Breath sounds: No wheezing, rhonchi or rales. Abdominal: Palpations: Abdomen is soft. Tenderness: There is no abdominal tenderness. Musculoskeletal: Comments: The patient has trace pretibial edema, varicose veins, dark skin discoloration of venous insufficiency. No evidence of cellulitis in the left leg. He has a quarter size venous ulcer on the posterior surface of the left calf. Neurological: General: No focal deficit present. Mental Status: He is alert. Motor: No weakness. Comments: Antalgic gait. The patient walks with a cane. Assessment/Plan Diagnoses and all orders for this visit: Acute deep vein thrombosis (DVT) of left lower extremity, unspecified vein (CMS/HCC) Comments: Continue Xarelto as recommended by [facility] hematology. The patient has a venous insufficiency ulcer of the left calf now. I explained to the patient he will need compression. There is no evidence of cellulitis at this point. I [facility] and he agreed. 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 I added tizanidine to his medications. He is recommended to [place] upcoming appointment with neurosurgery for evaluation as recommended at [facility] pain clinic. Other orders - tiZANidine (Zanaflex) 4 MG tablet; Take 1 tablet (4 mg) by mouth every 8 (eight) hours if needed for muscle spasms for up to 20 days. documented in this encounter Plan of Treatment Upcoming Encounters Date Type Department Care Team (Late st Contact Info) Description 09/17/2024 10:15 AM EDT Office Visit [facility] MEDICINE [address] [place] [address] Name, MD Leland [address] [place] [address] Scheduled Referrals Name Type Priority Associated Diagnoses Orde r Schedule Referral to Wound Clinic Outpatient Referral Routine Ulcer of left lower leg associated with varicose veins (CMS/HCC) Expected: 08/30/2024 (Approximate), Expires: 08/30/2025 documented as of this encounter Visit Diagnoses Diagnosis Acute deep vein thrombosis (DVT) of left lower extremity, unspecified vein (CMS/HCC)- Primary Ulcer of left lower leg associated with varicose veins (CMS/HCC) Chronic midline low back pain with sciatica, sciatica laterality unspecified documented in this encounter Additional Health Concerns Assessment Noted Time PHQ-9 Depression Total Score: 0 09/14/19 24 3:10 PM EDT documented as of this encounter Care Teams Pest Control Applicator Relationship Specialty Start Date End Date Leland Brandon MD [address] [place] [address] PCP - General Family Medicine 08/26/15 documented as of this encounter
--- OUTSIDE RECORDS SUMMARY | 2024-08-31 12:43 | XMS_ITS | Encounter Summary ---
Author Organization [employer] Address [address] [facility] 7t [place] [address] Care Team Providers Care Autopsy Pathologist Name Role Phone Name, Leland MIMS Primary Care Provider [phone] Reason for Visit * Reason Onset Date Comments Nurse Triage 08/27/2024 Encounter Details Date Type Department Care Team ([facility] st Contact Info) Description 08/27/2024 Telephone [facility] [address] [place] [address] Name, MD Leland [address] [place], [place] [phone] Nurse Triage Social History Tobacco Use Types [...] encounter Miscellaneous Notes * Telephone Encounter - Jonelle Bose LPN - 08/27/2024 4:06 PM EDT Triage call returned to patient with BLS Coy [phone]. Patient reports bone pain in both legs. Was seen today in Pain mgmt clinic in [facility] and was prescribed Methylprednisolone 4 mg x 6 days. Patient previously on Decadron 4mg one every day. Patient asking for clarification as he still had one tablet left of old RX Decadron. Advised to start new order as noted by MD today at pain clinic. Patient hasnot taken any med today and advised to take earlier in the day if possible due to possible insomnia. Reviewed precautions with patient who verbalized understanding. Patient with upcoming HD[facility] appt on 08/30/[address] Brandon. Reviewed with patient home care recommendations and reasons to call back. Pt verbalized understanding and agrees. Protocol Used: Medication Question Call (Adult) Protocol-Based Disposition: Home Care Positive Triage Question: * Caller has medicine question, adult has minor symptoms, caller declines triage, and triager answers question * All higher-acuity triage questions were negative * Telephone Encounter - Vic Finnegan - 08/27/2024 3:40 PM EDT Symptom: Body Aches Outcome: Schedule an appointment to be seen within 3 days Reason: Caller denied all higher acuity questions The caller accepted this outcome. documented in this encounter Plan of Treatment Upcoming Encounters Date Type Department Care Team (Late st Contact Info) Description 09/17/2024 10:15 AM EDT Office Visit [facility] [address] [place] [address] Name, MD Leland [address] [place] [address] documented as of this encounter Visit Diagnoses Not on filedocumented in this encounter Additional Health Concerns Assessment Noted Time PHQ-9 Depression Total Score: 0 09/14/19 24 3:10 PM EDT documented as of this encounter Care Teams Autopsy Pathologist Relationship Specialty Start Date End Date Name, MD Leland [address] [place] [address] PCP - General Family Medicine 08/26/15 documented as of this encounter
--- OUTSIDE RECORDS SUMMARY | 2024-08-31 12:43 | XMS_ITS ---
Author Organization [facility] Address [address] [place] [address] Care Team Providers Care Transfer Controller Name Role Phone Name Leland MIMS Primary Care Provider Unavailabl e Alex Smithmie Unavailable [phone] Nalini Dyer Unavailable [phone] Encounters Encounter Location Date Provider Diagnosis [address] [address] 08/02/2024 Nalini Dyer Plan Of Treatment Next Appt Details Provider Name:Nalini addison, 09/06/2024 02:30:00 PM, [address] [place] [address], [phone], Progress Notes * Jaren MCLAUGHLINsDOB: 3 (59 yo M)Acc No.[id number]:08/02/2024 Progress Note Patient:?Steven MCLAUGHLIN Provider:?Nalini Dyer DPM :1965???Age:59 Y???Sex:Male Jose e:08/02/2024 Address:[address] [place], [place] [address] Pcp:Leland Brandon MD Subjective: * Chief Complaints: [...] Dyer DPM Date:? Generated for Luisa john/Alexandrea/Clayton on:?08/31/2024 12:42 PM EDT
--- OUTSIDE RECORDS SUMMARY | 2024-08-31 12:43 | XMS_ITS ---
Author Organization [facility] Address [address] [place] [address] Care Team Providers Care Evening Anchor Name Role Phone Name Leland MIMS Primary Care Provider Unavailabl e Alex Smithmie Unavailable [phone] Nalini Dyer Unavailable [phone] Encounters Encounter Location Date Provider Diagnosis [address] [address] 03/05/2024 Nalini Dyer Plan Of Treatment Next Appt Details Provider Name:Nalini addison, 09/06/2024 02:30:00 PM, [address] [place] [address], [phone], Progress Notes * Jaren MCLAUGHLINsDOB: [birth year] (59 yo M)Acc No.[id number]:03/05/2024 Progress Note Patient:?Steven MCLAUGHLIN Provider:?Nalini Dyer DPM :1965???Age:58 Y???Sex:Male Jose e:03/05/2024 Address:[address] [place], [place] [address] Pcp:Leland Brandon MD Subjective: * Chief Complaints: [...]
--- OUTSIDE RECORDS SUMMARY | 2024-08-31 12:43 | XMS_ITS | Continuity of Care Document ---
Author Organization [place] [facility], [facility] Address [address] [place] [address] Care Team Providers Care Prepress Specialist Name Role Phone NAME, MARIO Primary Care Provider [phone] Assessment Encounter Date Assessment Date Assessment LastModified [...] Details Recorded Time History of tobacco use 89003114016 03 Active 2017 History of tobacco use; Note: Date Diagnose d: 11/17/2017 2:10 PM (V15.82) Not Available [facility] 4 02:48:23 Otorrhea of right ear 37057299334 46974 Active 2015 Otorrhea , right ear; Note: Date Diagnose d: 6 10:53 AM (H92.11) Not Available [facility] 4 02:48:27 Tinnitus of left ear 87504401217 06 Active 2015 Tinnitus , left ear; Note: Date Diagnose d: 6 1:49 PM (H93.12) Not Available [facility] 4 02:48:21 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 97209888 Active 2017 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, unspecif ied side; Note: Changed from M26.62 to M26.629 (01/08/20 23 2:39 PM) , Date Diagnose d: 11/17/2017 2:11 PM (M26.62) Not Available [facility] 4 02:48:26 Otalgia of left ear 9077278030 Active 2017 Otalgia, left ear; Note: Date Diagnose d: 11/17/2017 2:11 PM (H92.02) Otalgi a, left ear; Note: Date Diagnose d: 6 1:23 PM (H92.02) ; Start Date : 06/27/19 16 Not Available [facility] 4 02:48:25 Adhesive middle ear disease 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 Active 2013 Adhesive middle ear disease, unspecif ied as to involvem ent; Location : right CM S Risk: minimal risk CMS Treatmen t: self-cabrera ited or minor problem Conditio n: worse No te: Date Diagnose d: 4 4:36 PM (385.10) , Patient has a mild right anterior retracti on and left myringo- incudope xy Not Available [facility] 4 02:48:23 Sensorin eural hearing loss 57581620 Active 2015 Sensorin eural hearing loss, unilater al, left ear, with unrestri cted hearing on the contrala teral side; Note: Date Diagnose d: 6 3:27 PM (H90.42) Not Available [facility] 4 02:48:28 Disorder of nasal sinus 4347237 Active 2020 Other specifie d disorder s of nose and nasal sinuses; Note: Date Diagnose d: 06/08/20 21 10:31 AM (J34.89) Not Available [facility] 4 02:48:20 Disorder of the nose 61436751 Active 2020 Other specifie d disorder s of nose and nasal sinuses; Note: Date Diagnose d: 06/08/20 21 10:31 AM (J34.89) Not Available [facility] 4 02:48:21 Psoriasi s 0633540 Active 2019 Other psoriasi s; Note: Date Diagnose d: 0 11:50 AM (L40.8) Not Available [facility] 4 02:48:27 Sensorin eural hearing loss in left ear 48189376568 109 Active 2015 Sensorin eural hearing loss, unilater al, left ear, with restrict ed hearing on the contrala teral side; Note: Date Diagnose d: 06/01/20 16 2:10 PM (H90.A22 ) Not Available [facility] 4 02:48:29 Sensorin eural hearing loss of bilatera l ears 304991930 Active 2019 [facility] Bilatera lly; Note: Date Diagnose d: 4 4:08 PM (389.18) , Patient with bilatera l sensorin eural hearing loss affectin g all frequenc ie. Recommen d amplific ation, patient provided with a copy of todays audiogra m, medical clearanc e for hearing aids, and a [facility]. Follow up as needed ; Start Date : 03/12/20 14 Senso rineural hearing loss, bilatera l; Note: Date Diagnose d: 04/28/20 20 11:59 AM (H90.3) Sensor ineural hearing loss, bilatera l; Note: Date Diagnose d: 6 1:49 PM (H90.3) ; Start Date : 06/27/19 16 Not Available [facility] 4 02:48:24 Chronic serous otitis media of left ear 439983515 Active 2015 Chronic serous otitis media, left ear; Note: Date Diagnose d: 6 2:21 PM (H65.22) Not Available [facility] 4 02:48:28 Chronic serous otitis media 13589095 Active 2013 Chronic serous otitis media; Location [...] given severity of hearing loss Not Available [facility] 4 02:48:22 Mixed conducti ve and sensorin eural hearing loss of right ear 28513527915 105 Active 2015 Mixed conducti ve and [...] 16 2:10 PM (H90.A31 ) Not Available [facility] 4 01:08:24 Tobacco user 643169487 Completed 201701/24/2024 Tobacco use; Note: Date Diagnose d: 8 11:00 AM (Z72.0) JABARI DELVALLE MD [address] [place] [address], [facility] [place], [address] , [facility] - [facility] 4 16:10:42 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 Other specifie d superfic ial mycoses; Note: Date Diagnose d: 7 1:41 PM (B36.8) Not Available [facility] 4 02:48:28 Dysfunct ion of eustachi an tube 45849888 Active 2013 Eustachi an tube dysfunct ion; Note: Date Diagnose d: 4 4:08 PM (381.81) Not Available [facility] 4 02:48:25 Otalgia 31533009 Active 2014 Otalgia; Note: Date Diagnose d: 5 2:02 PM (388.70) Not Available [facility] 4 02:48:29 Referred otalgia 85741941 Active 2019 Otalgia secondar y to TMJ; Note: Date Diagnose d: 0 2:21 PM (388.72) Not Available [facility] 4 02:48:30 Impacted cerumen 01595633 Active 2014 Impacted cerumen; [facility] Treatmen t: establis hed problem (to examiner ): stable or improved Note: Date Diagnose d: 5 1:42 PM (380.4) Not Available [facility] 4 02:48:23 Itching of skin 051870699 Active 2019 Other pruritus ; Note: Date Diagnose d: 0 2:25 PM (L29.8) Not Available [facility] 4 02:48:21 Impacted cerumen in right ear 14220274950 72031 Active 2016 Impacted cerumen, right ear; Note: Date Diagnose d: 7 4:26 PM (H61.21) Not Available [facility] 4 02:48:26 Impacted cerumen of bilatera l ears 70504564936 77802 Active 2016 Impacted cerumen, bilatera l; Note: Date Diagnose d: 7 1:58 PM (H61.23) Not Available [facility] 4 02:48:29 Chronic serous otitis media of right ear 828833243 Active 2015 Chronic serous otitis media, right ear; Note: Date Diagnose d: 6 3:57 PM (H65.21) Not Available [facility] 4 02:48:25 Bilatera l disorder of Eustachi an tubes 30173015970 58979 Active 2015 Other specifie d disorder s of Eustachi an tube, bilatera l; Note: Date Diagnose d: 6 2:21 PM (H69.83) Not Available [facility] 4 02:48:27 Otalgia of right ear 2256055620 Active 2017 Otalgia, right ear; Note: Date Diagnose d: 8 10:49 AM (H92.01) Otalgi a, right ear; Note: Date Diagnose d: 5 2:03 PM (H92.01) [mapped from ICD9 code: 388.70] ; Start Date : 01/03/20 15 Not Available [facility] 4 02:48:22 Chronic serous otitis media 97829678 Active 2023 JABARI DELVALLE MD [address] [place] [address], [place], [address] , [facility] 4 16:07:04 Problem Notes None recorded. Procedures Surgical History Date Name Laterality Status Provider Name and Address Organization Details Recorded Time 06/18/19 25 Air & Speech Audio with Tymps (56518, 62700 & 75243) completed BALA WASSERMAN [address] [place] [address], [place], [address], [facility] - [facility] 06/18/2024 15:27:33 05/18/20 24 MYRINGOTOMY, BILATERAL, WITH TUBE INSERTION (SURG) completed Freedom Lozano [place] - [facility] 05/21/2024 11:01:39 01/24/20 24 Cerumen removal with microscope bilateral completed JABARI DELVALLE MD [address] [facility],[place] [address], [place], [address], [facility] - [facility] 01/24/2024 16:10:57 11/24/19 24 Cerumen removal without microscope bilat completed ANTHONY APONTE PA-C [address] [facility], [place], [address], [facility] - [facility] 11/24/2023 17:07:33 11/24/19 24 Tympanometry (98182) completed Roxy Rico [place] - [facility] 11/24/2023 16:43:26 11/24/19 24 Air & Bone Audio (48444) completed Roxy Rico [place] - [facility] 11/24/2023 16:45:17 Myringotomy Tube Placement completed Amber Kebede [place] - [facility] 01/24/2024 15:34:07 Imaging Results None recorded. [...] mg tablet 2020 active Medicati on ID: 059114 B rand Name: atorvast atin Sen d Method: E-Prescr ibed Sub s Allowed: subs OK Medic ationGen ericName : atorvast atin Not Available Not Available Not Available bupropion HCl SR 150 mg tablet,12 hr sustained -release 2020 active Medicati on ID: 828001 B rand Name: bupropio n HCl Send [...] topical cream 06/08 completed Medicati on ID: 490155 B rand Name: Lotrison e Send Method: E-Prescr ibed Sub s Allowed: subs OK Speci al Instruct ion: apply to external ear tid X 2 weeks Me dication GenericN emily: Lotrison e Medica tion ID: [id number] B rand Name: Lotrison e Send Method: E-Prescr ibed Sub s Allowed: subs OK Speci al Instruct ion: apply to external ear tid X 2 weeks Me dication GenericN emily: Lotrison e Not Available Not Available Not Available clotrimaz ole-betam ethasone 1 %-0.05 % lotion 06/08 completed Medicati on ID: 600283 P rescribe d By Name: TONNY Tejeda [...] topical cream 01/23 completed Medicati on ID: 835509 B rand Name: betameth asone, augmente d Send Method: E-Prescr ibed Sub s Allowed: subs OK Medic ationGen ericName : betameth asone, augmente d Not Available Not Available Not Available Ciloxan 0.3 % eye drops 01/23 completed Medicati on ID: 593433 D uration Value: 3 Prescri bed By Name: Hector Barber nd Name: Ciloxan Send Method: E-Prescr ibed Sub s Allowed: subs OK Speci al Instruct ion: Instill 4 drops twice a day into affected ear for 3 days [facility] me: Ciloxan Not Available Not Available Not Available sulfameth oxazole 800 mg-trimet hoprim 160 mg tablet TAKE 1 TABLET TWICE DAILY FOR 10 DAYS active Not Available Not Available No t Available aspirin 81 mg tablet,de layed release 2020 active Medicati on ID: 205455 B rand Name: aspirin Send Method: E-Prescr [...] applicato r 2020 active Medicati on ID: 091845 B rand Name: hydrocor tisone S end [...] mg capsule 2020 active Medicati on ID: 954252 B rand Name: tamsulos in Send Method: [...] right ear 01/23 completed Medicati on ID: [id number] Pr escribed By Name: TONNY Crisostomo nd Name: antipyri ne-benzo rohan Se nd Method: E-Prescr ibed Sub s Allowed: subs OK Speci al Instruct ion: as needed for discomfo rt Medic ationGen ericName : antipyri ne-benzo rohan Not Available Not Available Not Available hydrocort isone 1 % topical cream 2020 active Medicati on ID: 617826 B rand Name: hydrocor tisone S end [...] mg tablet 2020 active Medicati on ID: 207602 B rand Name: lisinopr il Send Method: [...] mg tablet 2020 active Medicati on ID: 622875 B rand Name: loratadi ne Send Method: [...] topical cream 06/08 completed Medicati on ID: [id number] Dariana daniels By Name: TONNY Tejeda nd [...] 24 hr 2020 active Medicati on ID: 791544 B rand Name: alfuzosi n Send Method: [...] TAKE 1 TABLET BY MOUTH EVERY DAY [facility] cation nericNam e: duloxeti ne Not Available Not Available Not Available pregabali n 150 mg capsule 2020 active Medicati on ID: 492608 B rand Name: pregabal in Send Method: E-Prescr ibed Sub s Allowed: subs OK Medic ationGen ericName : pregabal in Not Available Not Available Not Available antipyrin e-benzoca ine 3 drop into right ear as directed 06/08 completed Medicati on ID: 76316 Br and Name: antipyri ne-benzo rohan Se [...] mg capsule 2020 active Medicati on ID: 149253 B rand Name: Fish Oil Send Method: E-Prescr ibed Sub s Allowed: subs OK Medic ationGen ericName : Fish Oil Not Available Not Available Not Available hydrochlo rothiazid e 12.5 mg tablet TAKE 1 TABLET BY MOUTH EVERY DAY IN THE MORNING active Not Available Not Available No t Available Athlete's Foot (clotrima zole) 1 % topical cream 01/23 completed Medicati on ID: 579489 D uration Value: 14 Prescri bed By [...] mg tablet 2020 active Medicati on ID: 891989 B rand Name: Soniaquis Send Method: E-Prescr [...] Updated DateTime 08/24/2024 182.88 cm 38.7 kg/m2 981447.83 g Kayla Chacko [place] - [facility] 08/24/2024 14:36:20 Social History Question Answer Notes LastModified by Organizat ion Details LastModified Time Tobacco Smoking Status Former Smoker JABARI DELVALLE MD [address] [place] [address], [place], [address], [place] [facility] 01/24/2024 16:04:47 When Did You Quit Smoking? 1-5yearssinc elastcigaret te Information not available 01/24/2024 Sex: Unknown Functional Status None recorded. Mental Status None recorded. Family History Nothing Reported. Medical History Condition Response Anxiety Y Depression Y Sleep Disorder Y Past Encounters Encounter ID Performer Location Encounter Start Date Encounter Closed Date Diagnosis/Indication Diagnosis SNOMED-CT Code Diagnosis ICD10 Code Diagnosis Note [id number] FAITH MEDINA MD [facility] [address] [address] 08/24/2024 14:29:50 08/24/2024 14:55:40 Arthralgia of temporomandibular joint 69913561 M26.629 Bilateral disorder of Eustachian tubes 6744102519 522678 H69.93 Health Concerns Section Related Observation LastModified by Organization Detai ls LastModified Time None Recorded Concern Status LastModified by Organization Details LastModified Time None Recorded Payers Encounter Date Sequence Insurance Name Policy Number Policy Simon Covered Member ID Simon Member ID Guarantor Name 08/24/2024 1 [facility] - DOS ON OR AFTER 2022 - ONE CARE (MEDICARE REPLACEMENT/ADV ANTAGE - HMO) Steven Subramanian [id number] Steven Subramanian Notes Date Note Type Note Provider Name and Address Organization Details Recorded Time 08/24/2024 text/html 59-year-old male with T tubes presents for reevaluation of right ear pain. He reports minimal improvement with topical DermOtic. This pain occurs 2-3 times weekly. He denies inciting events. He does have a history of arthritis. FAITH MEDINA MD [address] [place] [address], [address], [facility] - [facility] 08/26/2024 08:15:56
--- OUTSIDE RECORDS SUMMARY | 2024-08-31 12:43 | XMS_ITS | Encounter Summary ---
Author Organization [employer] Address [address] [facility] [address] [place] [address] Care Team Providers Care Heel Layer Name Role Phone Name, Leland MIMS Primary Care Provider [phone] Reason for Visit * Reason Comments Med Refill Encounter Details Date Type Department Care Team ([facility] st Contact Info) Description 09/23/2023 Refill [facility] [address] [place] [address] Ila Lora MD [address] [place] [address] Social History Tobacco Use Types Packs/Day Years [...] Description 09/17/2024 10:15 AM EDT Office Visit [facility] [address] [place] [address] Name, MD Leland [address] [place] [address] documented as of this encounter Visit Diagnoses Not on filedocumented in this encounter Additional Health Concerns Assessment Noted Time PHQ-9 Depression Total Score: 0 09/14/19 24 3:10 PM EDT documented as of this encounter Care Teams Heel Layer Relationship Specialty Start Date End Date NameLeland MD [address] [place] [address] PCP - General Family Medicine 08/26/15 documented as of this encounter
--- OUTSIDE RECORDS SUMMARY | 2024-08-31 12:43 | XMS_ITS | Encounter Summary ---
Author Organization [employer] Address [address] [facility] 7t [place] [address] Care Team Providers Care Servicenow Administrator Name Role Phone Name, Leland MIMS Primary Care Provider [phone] Encounter Details Date Type Department Care Team ([facility] Contact Info) Description 11/22/[address] [id number] Name, MD Leland [address] [place] [phone] Social History Tobacco Use Types Packs/Day Years [...] Upcoming Encounters Date Type Department Care Team ([facility] Contact Info) Description 09/17/2024 10:15 AM EDT Office Visit [facility] [address] [place] [address], [place] [address] Name, MD Leland [address] [place] [address] documented as of this encounter Visit Diagnoses Not on filedocumented in this encounter Additional Health Concerns Assessment Noted Time PHQ-9 Depression Total Score: 0 09/07/19 23 1:16 PM EDT documented as of this encounter Care Teams Servicenow Administrator Relationship Specialty Start Date End Date Name, MD Leland [address] [place] [address] PCP - General Family Medicine 08/26/15 documented as of this encounter
--- OUTSIDE RECORDS SUMMARY | 2024-08-31 12:43 | XMS_ITS | Encounter Summary ---
Author Organization [employer] Address [address] [facility] [address] [place] [address] Care Team Providers Care Implementation Engineer Name Role Phone Name, Leland MIMS Primary Care Provider [phone] Encounter Details Date Type Department Care Team (Latest Contact Info) Description 08/30/2024 Travel Social History Tobacco Use Types Packs/Day [...] Description 09/17/2024 10:15 AM EDT Office Visit [facility] [address] [place] [address] Name, MD Leland [address] [place] [address] documented as of this encounter Visit Diagnoses Not on filedocumented in this encounter Additional Health Concerns Assessment Noted Time PHQ-9 Depression Total Score: 0 09/14/19 24 3:10 PM EDT documented as of this encounter Care Teams Implementation Engineer Relationship Specialty Start Date End Date NameLeland MD [address] [place] [address] PCP - General Family Medicine 08/26/15 documented as of this encounter
--- OUTSIDE RECORDS SUMMARY | 2024-08-31 12:43 | XMS_ITS | Encounter Summary ---
Author Organization [employer] Address [address] [facility] 7t [place] [address] Care Team Providers Care Animal Ride Attendant Name Role Phone Name, Leland MIMS Primary Care Provider [phone] Reason for Visit * Reason Onset Date Comments Call Back Request 08/30/2024 Encounter Details Date Type Department Care Team ([facility] st Contact Info) Description 08/30/2024 Telephone [facility] MED[facility] [address] [place] [address] Name, MD Leland [address] [place] [address] Call Back Request Social History Tobacco Use Types Packs/Day Years [...] encounter Miscellaneous Notes * Telephone Encounter - Vic Finnegan - 08/30/2024 3:37 PM EDT Tc from pt requesting a callback in regards clarification due to procedure done , pt was inform from [facility] where procedure was done to contact PCP. Pt will like to know if could take walks with no problem due to procedure. Syriac speaker documented in this encounter Plan of Treatment Upcoming Encounters Date Type Department Care Team (Late st Contact Info) Description 09/17/2024 10:15 AM EDT Office Visit [facility] [address] [place] [address] Name, MD Leland [address] [place] [address] documented as of this encounter Visit Diagnoses Not on filedocumented in this encounter Additional Health Concerns Assessment Noted Time PHQ-9 Depression Total Score: 0 09/14/19 24 3:10 PM EDT documented as of this encounter Care Teams Animal Ride Attendant Relationship Specialty Start Date End Date NameLeland MD [address] [place] [address] PCP - General Family Medicine 08/26/15 documented as of this encounter
--- OUTSIDE RECORDS SUMMARY | 2024-08-31 12:43 | XMS_ITS | Encounter Summary ---
Author Organization [employer] Address [address] [facility] 7t [place] [address] Care Team Providers Care Portable Sawmill Operator Name Role Phone Name, Leland MIMS Primary Care Provider [phone] Reason for Visit * Reason Onset Date Comments Med Refill 01/02/2024 Encounter Details Date Type Department Care Team ([facility] st Contact Info) Description 01/02/[address] [facility] MED[facility]INE [address] [place] [address] Name, MD Leland [address] [place] [address] Med Refill Social History Tobacco Use Types [...] 10 MG tablet To be sent to: [facility] - [place], [place] - [address] [place] [address] documented in this encounter Plan of Treatment Upcoming Encounters Date Type Department Care Team (Late st Contact Info) Description 09/17/2024 10:15 AM EDT Office Visit [facility] MED[facility]INE [address] [place] [address] Name, MD Leland [address] [place] [address] documented as of this encounter Visit Diagnoses Not on filedocumented in this encounter Additional Health Concerns Assessment Noted Time PHQ-9 Depression Total Score: 0 09/14/19 24 3:10 PM EDT documented as of this encounter Care Teams Portable Sawmill Operator Relationship Specialty Start Date End Date Name, MD Leland [address] [place] [address] PCP - General Family Medicine 08/26/15 documented as of this encounter
--- OUTSIDE RECORDS SUMMARY | 2024-08-31 12:43 | XMS_ITS | Patient Health Record ---
Author Organization [facility] Address [address] [place] [address] Care Team Providers Care Hris Specialist Name Role Phone Name Leland MIMS Primary Care Provider Unavailabl e Luis Yaquelin Unavailable [phone] MaricelNalini addison Unavailable [phone] Allergies No Known Allergies Reason For Referral No Information Medications Medication SIG (Take, Route, Frequency, Duration) Notes Start Date End Date Status Naproxen 500 MG 1 tablet Orally WITH FOOD Twice a day for 14 days 01/28/2023 Not-Taki ng Ciclopirox 0.77 % 1 application Harness Inspector ally Twice a day for 30 days 07/15/2022 Not-Taki ng Pradaxa 150 MG 1 capsule Orally Twi ce a day Not-Taking Ammonium Lactate 12 % 1 application Exte rnally Twice a day for 30 days Not-Taki ng Piroxicam 20 MG TAKE 1 CAPSULE BY [facility] EVERY DAY WITH FOOD FOR [...] Problem Status W/U Status Risk Notes Problem 10689497 Plantar wart (B07.0) Active confirmed Problem Acquired hammer toe of left foot (4461204276126064) Other hammer toe(s) (acquired), left foot (M20.42) Active confirmed Problem 840101951 Hammer toe of right foot (M20.41) Active confirmed Problem 113831726 Neuropathy (G62.9) Active confirmed Problem 558613979752173 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 (M19.071) Active confirmed Problem Acquired deformity of left foot (11112072788675211) PlantarFlexion of metatarsal of left foot (M21.6X2) Active confirmed Problem 9341010475433576 Gouty arthritis of left foot (M10.9) Active confirmed Vital Signs Height 6ft in 05/21/2024 Weight 289 lbs 05/21/2024 BMI 39.19 kg/m2 05/21/2024 Encounters Encounter Location Date Provider [facility] [address] [place] [address] 09/13/2023 Nalini Dyer Xerosis of skin L85. 3 ; Metatarsalgia, left foot M77.42 ; Bursitis of intermetatarsal bursa of left foot M77.52 ; PlantarFlexion of metatarsal of left foot M21.6X2 ; Other hammer toe(s) (acquired), left foot M20.42 and Hammer toe of right foot M20.41 [facility] [address] 09/29/2023 Nalini Dyer Tinea unguium B35.1 ; Metatarsalgia, left foot M77.42 ; Pain in right toe(s) M79.674 ; Pain in left toe(s) M79.675 ; Xerosis of skin L85.3 ; PlantarFlexion of metatarsal of left foot M21.6X2 ; Other hammer toe(s) (acquired), left foot M20.42 and Hammer toe of right foot M20.[address] [place] [address] 12/08/2023 Nalini Dyer Tinea unguium B35.1 ; Pain in right toe(s) M79.674 and Pain in left toe(s) M79.675 [facility] [address] [facility] [address] 05/21/2024 Nalini Connellya Tinea unguium B35.1 ; Metatarsalgia, left foot M77.42 ; Pain in right toe(s) M79.674 ; Pain in left toe(s) M79.675 ; Xerosis of skin L85.3 ; PlantarFlexion of metatarsal of left foot M21.6X2 ; Other hammer toe(s) (acquired), left foot M20.42 ; Hammer toe of right foot M20.41 and Bursitis of intermetatarsal bursa of left foot M77.[address] [address] 09/05/2023 Nalini Dyer [address] [address] 09/05/2023 [facility] Luis [facility] [address] [place] [address] 09/08/2023 Yaquelin Black [facility] [address] 09/14/2023 Nalini Perica [facility] [address] 02/06/2024 Yaquelin Black [address] [address] 03/05/2024 Yaquelin Smith Assessments Encounter Date Diagnosis [...] X ray : Foot, right 3V 01/27/2023 [id number] NAIL, 6 OR MORE 11/03/2021 63373-PVLBUYE NAIL, 6 OR MORE 01/19/2022 61633, J0702- INJECT TENDON ORIGIN/INSER T 01/27/2023 29556, S1388-FTYME/INJECT, JOINT/BURSA 0 07/02/2022 X ray : Ankle, right 3V 01/27/2023 Next Appt Details Provider Name:Nalini addison, 09/06/2024 02:30:00 PM, [address] [place], [address], Insurance Providers Payer Name Payer Address Payer Phone Subscriber Number Group Number Insured Name Patient Relationship to Insured Coverage Start Date Coverage End Date [facility] [employer] Claims [address] [place] [id number] Steven Subramanian Self - patient is the insured Medical (General) History Medical History History ICD Code Arthritis Depression Psoriasis/eczema Surgical History Surgery Date(Month/Year) ear tubes Hospitalization History Reason Date(Month/Year) [facility]- blood clot 07/2021 [facility] leg issue, cyst
--- OUTSIDE RECORDS SUMMARY | 2024-08-31 12:43 | XMS_ITS | Encounter Summary ---
Author Organization [employer] Address [address] [facility] 7t [place] [address] Care Team Providers Care Court Bailiff Name Role Phone Name, Leland MIMS Primary Care Provider Reason for Visit * Reason Onset Date Comments Med Refill 07/28/2023 Encounter Details Date Type Department Care Team ([facility] st Contact Info) Description 07/28/2023 Telephone [facility] MEDICINE [address] [place] [address] Name, MD Leland [address] [place] [address] Med Refill Social History Tobacco Use Types [...] Vogt LPN - 07/28/2023 11:52 AM EST HISTORIC SITES REGISTRAR checked 07/28/23 last filled on 06/17/23 refill 2/3 patient should have 1 refill left. * Telephone Encounter - Hailee Louie - 07/28/2023 11:08 AM EST TC from pt requesting medication refill. Medications needing refill : gabapentin (Neurontin) 800 MG tablet To be sent to: [facility] - [place] - [address] [place] [address] documented in this encounter Plan of Treatment Upcoming Encounters Date Type Department Care Team (Late st Contact Info) Description 09/17/2024 10:15 AM EDT Office Visit [facility] [address] [place] [address] Name, MD Leland [address] [place] [address] documented as of this encounter Visit Diagnoses Not on filedocumented in this encounter Additional Health Concerns Assessment Noted Time PHQ-9 Depression Total Score: 0 09/07/19 23 1:16 PM EDT documented as of this encounter Care Teams Court Bailiff Relationship Specialty Start Date End Date Name, MD Leland [address] [place] [address] PCP - General Family Medicine 08/26/15 documented as of this encounter
--- OUTSIDE RECORDS SUMMARY | 2024-08-31 12:43 | XMS_ITS | Encounter Summary ---
Author Organization [employer] Address [address] 7t [place] [address] Care Team Providers Care Package Maker Name Role Phone Name, Leland MIMS Primary Care Provider [phone] Reason for Visit * Reason Comments Leg Pain Encounter Details Date Type Department Care Team (Late st Contact Info) Description 08/20/2024 3:20 PM EDT Office Visit [facility] [address] [place] [phone] Name, MD Leland [address] [place] [phone] Left leg pain (Primary Dx); Presence of [...] last appointment he was hospitalized again at [facility]. He presented with worsening left leg pain, redness, he was found to have extensive left leg DVT despite the use of Lovenox. He has failed multiple other anticoagulants in the past. The patient requiredplacement of IVC filter for prevention of pulmonary embolism. [facility] He is now on Xarelto for anticoagulation. [...] the topical antibiotic he was prescribed at [facility]. He is recommended leg elevation. He is [...] Description 09/17/2024 10:15 AM EDT Office Visit [facility] [address] [place] [address] Name, MD Leland [address] [place] [address] documented as of this encounter Visit Diagnoses [...] documented as of this encounter Care Teams Package Maker Relationship Specialty Start Date End Date Leland Brandon MD [address] [place] [address] PCP - General Family Medicine 08/26/15 documented as of this encounter
--- OUTSIDE RECORDS SUMMARY | 2024-08-31 12:44 | XMS_ITS | Encounter Summary ---
Author Organization [employer] Address [address] [facility] 7t [place] [address] Care Team Providers Care Riverine Assault Craft Crewman Name Role Phone Name, Leland MIMS Primary Care Provider [phone] Reason for Visit * Reason Onset Date Comments Verbal Order 07/24/2024 Encounter Details Date Type Department Care Team ([facility] st Contact Info) Description 07/24/2024 Telephone [facility] MEDICINE [address] [place] [address] Name, MD Leland [address] [place] [address] Verbal Order Social History Tobacco Use Types [...] Miscellaneous Notes * Telephone Encounter - Margarita Thurston RN - 07/25/2024 11:27 AM EST Telephone call returned to Katey at [facility], spoke with Katey. Gave verbal orders for VNA care. Asked when last office visit was, advised it was 07/06/24 with PCP and also pt was seen in [facility] walk in clinic on 07/14/24. Katey verbalized understanding, no further questions. * Telephone Encounter - João Bhatt - 07/24/2024 4:34 PM EST Tc from Emelia with [facility] requesting verbal orders. Please contact Emelia at [phone] Opt 2. documented in this encounter Plan of Treatment Upcoming Encounters Date Type Department Care Team (Late st Contact Info) Description 09/17/2024 10:15 AM EDT Office Visit [facility] MEDICINE [address] [place] [address] Name, MD Leland [address] [place] [address] documented as of this encounter Visit Diagnoses Not on filedocumented in this encounter Additional Health Concerns Assessment Noted Time PHQ-9 Depression Total Score: 0 09/14/19 24 3:10 PM EDT documented as of this encounter Care Teams Riverine Assault Craft Crewman Relationship Specialty Start Date End Date Name, MD Leland [address] [place] [address] PCP - General Family Medicine 08/26/15 documented as of this encounter
--- OUTSIDE RECORDS SUMMARY | 2024-08-31 12:44 | XMS_ITS | Encounter Summary ---
Author Organization [employer] Address [address] [facility] 7t [place] [address] Care Team Providers Care Motel Clerk Name Role Phone Name, Leland MIMS Primary Care Provider [phone] Reason for Visit * Reason Onset Date Comments Referral 07/20/2022 Encounter Details Date Type Department Care Team ([facility] st Contact Info) Description 07/20/2022 Telephone [facility] MEDICINE [address] [place], [place] [phone] Name, MD Leland [address] [place] [address] Referral Social History Tobacco Use Types Packs/Day [...] Podiatry for new or existing referrals for [facility], [address], [place] [address], Phone #: , Reason for referral is Chronic Severe pain left foot. Marva advised pt has an X-ray done and patient does have the symptom of Chronic pain. Advised Marva with [facility] will forward to team nurse for new referral and relations specialist for existing referral. Please call Marva at [phone] documented in this encounter Plan of Treatment Upcoming Encounters Date Type Department Care Team (Late st Contact Info) Description 09/17/2024 10:15 AM EDT Office Visit [facility] MED[facility]INE [address] [place] [address] Name, MD Leland [address] [place] [address] documented as of this encounter Visit Diagnoses Not on filedocumented in this encounter Care Teams Motel Clerk Relationship Specialty Start Date End Date Name, MD Leland [address] [place] [address] PCP - General Family Medicine 08/26/15 documented as of this encounter
--- OUTSIDE RECORDS SUMMARY | 2024-08-31 12:44 | XMS_ITS | Clinical Summary ---
Author Organization [address] [facility] Address [address] [place] [address] Phone Care Team Providers Care Academic Intern Name Role Phone Name, Leland MIMS Primary Care Provider [phone] Allergies No known active allergies Medications DICLOFENAC [...] ID:[id number] Group ID:[id number] Type:Not on file Address: [place] [address] [place] [place] [address] Care Teams Academic Intern Relationship Specialty Start Date End Date Name, MD Leland [address] [place], [place] PCP - General 01/06/15
--- OUTSIDE RECORDS SUMMARY | 2024-08-31 12:44 | XMS_ITS | Encounter Summary ---
Author Organization [employer] Address [address] [facility] 7t [place] [address] Care Team Providers Care Architect Marine Name Role Phone NameLeland MD Primary Care Provider [phone] Reason for Referral * Consultation (Routine) - Authorized Specialty Diagnoses / Procedures Referred By Kahlil hoksins Referred To Contact Neurology Diagnoses Tremor of both hands Leland Brandon MD [address] [place] [address] Phone: tel: fax: Geetha Greene MD [address] [place] [address] [place] [address] Phone: tel: fax: Referral ID Status Reason Start Date Expiration Date Visits Requested Visits Authorized [id number] Authorized Specialty Services Required 08/01/2024 08/01/2025 1 1 Reason for Visit * Reason Comments Follow-up Encounter Details Date Type Department Care Team (Late st Contact Info) Description 08/01/2024 2:15 PM EST Office Visit [facility] MED[facility] [address] [place] [address] Leland Brandon MD [address] [place] [address] [phone] Cellulitis, unspecified cellulitis site (Primary Dx); Chronic [...] was hospitalized from to July 25 at [facility] because of left lower extremity cellulitis. When [...] past. He was advised to follow-up with [facility] hematology as outpatient (he has seen them [...] [facility] [address] [place] [address] Leland Brandon MD [address] [place] [address] Scheduled Referrals Name Type Priority Associated Diagnoses [...] Free T4 0.69 0.32 - 4.0 uIU/mL [facility] Blood Venous blood specimen / Unknown 08/01/2024 3:05 PM EST 08/01/2024 4:20 PM EST Leland Brandon MD LAB BLOOD ORDERABLES Final Resul t [facility] [address] [place] [address] [phone] documented in this encounter Visit Diagnoses Diagnosis Cellulitis, unspecified cellulitis site- Primary Chronic pain syndrome Tremor of both hands documented in this encounter Additional Health Concerns Assessment Noted Time PHQ-9 Depression Total Score: 0 09/14/19 24 3:10 PM EDT documented as of this encounter Care Teams Architect Marine Relationship Specialty Start Date End Date Leland Brandon MD [address] [place] [address] PCP - General Family Medicine 08/26/15 documented as of this encounter
--- OUTSIDE RECORDS SUMMARY | 2024-08-31 12:44 | XMS_ITS | Clinical Summary ---
Author Organization [facility] Address [address] [place] [address] Care Team Providers Care Forder Operator Name Role Phone No, Pcp Primary [...] this topic Insurance [facility] Care Teams Forder Operator Relationship Specialty Start Date End Date No, Pcp HIREN PCP - General 01/29/22
--- OUTSIDE RECORDS SUMMARY | 2024-08-31 12:44 | XMS_ITS | Encounter Summary ---
Author Organization [employer] Address [address] [facility] [address] 7t [place] [address] Care Team Providers Care Family Resource Management Professor Name Role Phone Name, Leland MIMS Primary Care Provider [phone] Reason for Visit * Reason Comments Med Refill Encounter Details Date Type Department Care Team ([facility] st Contact Info) Description 07/25/2024 Refill [facility] [address] [place], [place] [phone] Stacey Wade MD [address] [place] [address] Lumbago with sciatica, right side Social History [...] Description 09/17/2024 10:15 AM EDT Office Visit [facility] MED[facility] [address] [place] [address] Name, MD Leland [address] [place] [address] documented as of this encounter Visit Diagnoses Diagnosis Lumbago with sciatica, right side documented in this encounter Additional Health Concerns Assessment Noted Time PHQ-9 Depression Total Score: 0 09/14/19 24 3:10 PM EDT documented as of this encounter Care Teams Family Resource Management Professor Relationship Specialty Start Date End Date Name, MD Leland [address] [place] [address] PCP - General Family Medicine 08/26/15 documented as of this encounter
--- OUTSIDE RECORDS SUMMARY | 2024-08-31 12:44 | XMS_ITS | Clinical Summary ---
Author Organization [employer] Address [address] [facility] 7[address] [place] [address] Care Team Providers Care Mechanical Maintenance Name Role Phone Name, Leland MIMS Primary Care Provider [phone] Allergies No known active allergies Medications * [...] 1 puff Once per day. 025 Active zolpidem (Ambien) 10 MG tabletIndicatio [...] Apply to ulcer on the left leg 025 Active mometasone (Elocon) 0.1 % ointmentIndicat ions:Venous stasis dermatitis of both lower extremities Apply topically Once per day. APPLY TOPICALLY EVERY DAY IN THE MORNING 45 g 3 Active oxyCODONE (Roxicodone) 5 MG immediate release tablet Take 1 tablet by mouth every 6 (six) hours if needed. Active tiZANidine (Zanaflex) 4 MG tablet Take 1 tablet (4 mg) by mouth every 8 (eight) hours if needed for muscle spasms for up to 20 days. 60 tablet 025 2024 Active Neomycin-Bacitr acin-Polymyxin (Triple Antibiotic) 3.5-400-5000 ointment Apply thin layer to affected skin 14 g 2 023 2024 Discontinued varenicline (Chantix) 1 MG tabletIndicatio ns:Tobacco use Take 1 tablet (1 mg) by mouth 2 times daily. Take with full glass of water. 60 tablet 3 024 2024 Discontinued hydroCHLOROthia zide 12.5 MG tablet Take 1 tablet by mouth in the morning. 2024 Discontinued(M ed list cleanup (will not trigger notification to Pharmacy)) mometasone (Elocon) 0.1 % ointmentIndicat ions:Venous stasis dermatitis of both lower extremities APPLY TOPICALLY EVERY DAY IN THE MORNING 45 g 3 024 2024 Discontinued(R eorder (will not trigger notification to Pharmacy)) Enoxaparin Sodium 120 MG/0.8ML solution prefilled syringe Inject 0.8 mL (120 mg) as directed 2 times daily. 48 mL 11 024 2024 Discontinued(I neffective) zolpidem (Ambien) 10 MG tabletIndicatio ns:Insomnia, unspecified type TAKE 1 TABLET BY MOUTH AT BEDTIME NEEDED FOR SLEEP 28 tablet 025 2024 Discontinued(R eorder (will not [...] to 10 days. 30 tablet 025 2024 Discontinued(T herapy completed) sulfamethoxazol e-trimethoprim (Bactrim DS) 800-160 MG tabletIndicatio ns:Cellulitis of left lower extremity Take 1 tablet by mouth 2 times daily for 10 days. 20 tablet 025 2024 dexAMETHasone (Decadron) 4 MG tabletIndicatio ns:Neurogenic claudication due to lumbar spinal stenosis Take 1 tablet (4 mg) by mouth with breakfast and with evening meal for 7 days. 14 tablet 025 2024 Discontinued(T herapy completed) baclofen (Lioresal) 20 MG tabletIndicatio ns:Neurogenic claudication due to lumbar spinal stenosis Take 1 tablet (20 mg) by mouth 3 times daily for 10 days. 30 tablet 025 2024 Discontinued mupirocin (Bactroban) 2 % ointmentIndicat ions:Cellulitis of left lower extremity Apply topically 3 times daily for 10 days. 22 g 2024 cephalexin (Keflex) 500 MG capsule Take 500 mg by mouth. 025 2024 Discontinued(M ed list cleanup (will not trigger notification to Pharmacy)) methylPREDNISol one (Medrol Dospak) 4 MG tablets 025 2024 Discontinued Active Problems Problem Noted Date Diagnosed Date Presence of IVC filter 08/20/2024 Low back pain due to bilateral sciatica 05/17/20 24 Assessment & Plan (06/15/2024 2:43 PM EST): I advised to use heat for affected area I will prescribe one more time dexamethasone I explain to patient is not a good medication to take for terminal manager due to side effects (weight gain, [...] twice a day for 10 days I direct care counselor patient that if problem persists or [...] to the hospital, case was presented to [facility] I let them know patient should have a CTA to r/o pulmonary embolism Connell's cyst of knee, right 02/07/2024 Assessment & Plan (02/07/2024 3:06 PM EDT): I will refer him to orthopedics to address his pain Hammer toe of right foot 03/29/2023 023 Neuropathy 03/29/2023 03/29/2023 Other acquired deformities of left foot 03/29/20 23 03/29/2023 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 Patient follows at [facility] and has been treated with injections [...] Encounters Date Type Department Care Team Description 08/30/2024 10:00 AM EDT Office Visit [facility] [address] [place], [place] [phone] Leland Brandon MD Acute deep vein thrombosis (DVT) of left lower extremity, unspecified vein (CMS/HCC) (Primary Dx); Ulcer of left lower leg associated with varicose veins (CMS/HCC); Chronic midline low back pain with sciatica, sciatica laterality unspecified 08/30/2024 Telephone [facility] [address] [place] [address] Leland Brandon MD Call Back Request 08/30/2024 Travel 08/27/2024 Telephone [facility] [address] [place] [address] Leland Brandon MD Nurse Triage 08/20/2024 3:20 PM EDT Office Visit [facility] [address] [place] [address] Leland Brandon MD Left leg pain (Primary Dx); Presence of IVC filter; Recurrent deep vein thrombosis (CMS/HCC); Cellulitis of left lower extremity; Ulcer of left lower leg associated with varicose veins (CMS/HCC); Venous stasis dermatitis of both lower extremities; Hand eczema 08/17/2024 Patient Outreach [facility] [address] [place] [phone] Leland Brandon MD Transition Of Care (Tcm) (HDF scheduled) 08/17/[address] [address] Leland Brandon MD Hospital Follow-up 08/16/[address] [address] Leland Brandon MD Insomnia, unspecified type 08/07/2024 1:15 PM EST Office Visit [address] [address] Stacey Wade MD Cellulitis of left lower extremity (Primary Dx); Neurogenic claudication due to lumbar spinal stenosis 08/07/2024 Travel 08/06/[address] [address] Leland Brandon MD Nurse Triage 08/01/2024 2:15 PM EST Office Visit [address] [address] Leland Brandon MD Cellulitis, unspecified cellulitis site (Primary Dx); Chronic pain syndrome; Tremor of both hands 07/26/[address] [address] Leland Brandon MD FYI 07/25/2024 Refill [facility] [address] [place] [address] Stacey Wade MD Lumbago with sciatica, right side 07/24/[address] [address] Leland Brandon MD REQUEST ER NOTES; Med Refill (Patient walked in requesting med refill for Dexamethasone 4mg patient stated he went to pharmacy to get medication and theres no medication in the pharmacy ) 07/24/[address] [address] Leland Brandon MD Verbal Order 07/24/[address] [address] Leland Brandon MD Nurse Triage 07/20/2024 Orders Only [facility] [address] [place] [address] Leland Brandon MD Severe low back pain (Primary Dx); Radicular leg pain 07/17/2024 Refill [facility] [address] [place] [address] Leland Brandon MD Insomnia, unspecified type 07/14/2024 12:00 PM EST Office Visit [facility] [address] [place] [address] Leland Brandon MD Severe low back pain (Primary Dx); Neurogenic claudication due to lumbar spinal stenosis 07/14/2024 Travel 07/06/2024 9:00 AM EST Office Visit [facility] [address] [place] [address] Leland Brandon MD Neurogenic claudication due to lumbar spinal stenosis (Primary Dx); Radicular leg pain; Severe low back pain 07/06/2024 Travel 06/25/2024 Telephone [facility] [address] [place] [address] Keila Rojas RN Results 06/22/2024 3:45 PM EST Telemedicine [address] [address] Chrissie Cosme NP Chronic nonintractable headache, unspecified headache type (Primary Dx); Chronic joint pain 06/22/2024 Travel 06/20/2024 Refill [facility] [address] [place] [address] Leland Brandon MD 06/18/2024 Orders Only [facility] [address] [place] [address] Amber Ortiz MD 06/15/2024 1:40 PM EST Office Visit [facility] [address] [place] [address] Stacey Wade MD Low back pain due to bilateral sciatica (Primary Dx) 06/15/2024 Refill [facility] [address] [place] [address] Name, MD Leland Insomnia, unspecified type 06/11/2024 Telephone [facility] [address] [place] [address] Dave Cabrera MA Chartprep from Last 3 [...] Mass Index 39.77 08/30/2024 10:12 AM EDT Plan of Treatment Upcoming Encounters Date Type Department Care Team (Late st Contact Info) Description 09/17/2024 10:15 AM EDT Office Visit [facility] [address] [place] [address] Name, MD Leland [address] [place] [address] Health Maintenance Due Date Last Done Comments CT Colonography 1965 FIT DNA/Cologuard 1965 FIT 1965 FOBT 1965 Sigmoidoscopy 1965 RSV Patients and Patients Aged 60 years or older (1 - Risk 60-74 years 1-dose series) 2023 COVID-19 Vaccine ( season) 2024 06/18/2021, 10/30/2020, 10/02/2020 SDOH Screening 09/05/2024 09/06/2023 Depression Screening 09/13/2024 09/14/2023, 09/14/19 Alcohol/Substance Use Screening 12/13/2024 12/14/2023 Tobacco Screening 08/30/2025 08/30/2024 DTaP/Tdap/Td Vaccines (2 - Td or Tdap) [...] Free T4 0.69 0.32 - 4.0 uIU/mL [facility] Blood Venous blood specimen / Unknown 08/01/2024 3:05 PM EST 08/01/2024 4:20 PM EST us Leland Name MD LAB BLOOD ORDERABLES Final Resul t [facility] [address] [place] [phone] [phone] * MR Lumbar Spine w/o Contrast (07/16/2024 6:25 PM EST) Anatomical Region Laterality Modality Spine, L-spine Magnetic Resonan ce 07/16/2024 6:25 PM EST Narrative 07/17/2024 7:57 AM EST ? [facility] ?[address] ?[place] [address] ? Magnetic Resonance Report ? Signed ? Patient: Steven Novak ?MR#: M ?? [id number] ? : 1965 ?Acct:[id number] ? Age/Sex: 59 / M ?ADM Date: 07/16/24 ? Loc: HO.MRI ? Attending Dr: Leland Brandon MD ? Ordering Physician: Leland Brandon MD ?? Date of Service: 07/16/24 ?? Procedure(s): MR lumbar spine wo con ?? Accession Number(s): [id number] ? cc: Leland Brandon MD ? EXAMINATION: [...] in OV> ? 07/17/24 0755 ? DD/ 24 ? TD/TT: 07/16/245 ? Swatch Clerk: ? Procedure Note Donotuseinterpreter, Image - 07/17/[address] [address] Magnetic Resonance Report Signed Patient: Baron NovakR#: Marie [id number] : 1965Acct:[id number] Age/Sex: 59 / MADM Date: 07/16/24 Loc: HO.MRI Attending Dr: Leland Brandon MD Ordering Physician: Leland Brandon MD Date of Service: 07/16/24 Procedure(s): MR lumbar spine wo con Accession Number(s): [id number] cc: Leland Brandon MD EXAMINATION: MR LUMBAR [...] 07/17/24 0755 DD/ 1825 TD/TT: 07/16/24 1855 Swatch Clerk: us Leland HUNG MRI PROCEDURES Edited Result - Final * XR Sacrum Coccyx 2+ Views (06/19/2024 8:32 AM EST) Anatomical Region Laterality Modality Sacrum, Coccyx Radiographic Rasheeda ging 06/19/2024 8:32 AM EST Narrative 06/19/2024 8:34 AM EST ? [facility] ?[address] ?[place] [address] ?XRay Report ? Signed ? Patient: Moris Francisco,Steven ?MR#: M ?? [id number] ? : 1965 ?Acct:[id number] ? Age/Sex: 59 / M ?ADM Date: 01/06/25 ? Loc: HO.XRAY ? Attending Dr: Amber Ortiz MD ? Ordering Physician: Amber Ortiz MD ?? Date of Service: 06/18/24 ?? Procedure(s): XR sacrum coccyx min 2V ?? Accession Number(s): [id number] ? cc: Amber Ortiz MD; Name,Leland MIMS [...] ? DD/ 1 ? TD/TT: 06/19/24831 ? Swatch Clerk: ? Procedure Note Mery Saeed - 06/19/2024 [place] [address] XRay Report Signed Patient: Michele Novak#: M [id number] : 1965Acct:[id number] Age/Sex: 59 / MADM Date: 06/18/24 Loc: HO.MAEGAN Attending Dr: Amber Ortiz MD Ordering Physician: Amber Ortiz MD Date of Service: 06/18/24 Procedure(s): XR sacrum coccyx min 2V Accession Number(s): [id number] cc: Amber Ortiz MD; Name,Leland MIMS CLINICAL [...] in OV> 06/19/24832 DD/ 1 TD/TT: 06/19/24831 Swatch Clerk: us Amber Ortiz MD IMG XR PROCEDURES Edited Result - Final * XR Hips Bilateral 3 or 4 Views with or without Pelvis (06/19/2024 8:31 AM EST) Anatomical Region Laterality Modality Lower Extremities, Hip Bilateral Radiograp hic Imaging 06/19/2024 8:31 AM EST Narrative 06/19/2024 8:32 AM EST ? [facility] ?[address] ?[place] [address] ?XRay Report ? Signed ? Patient: Moris SinghSteven ?MR#: M ?? [id number] ? : 1965 ?Acct:[id number] ? Age/Sex: 59 / M ?ADM Date: 06/18/24 ? Loc: HO.XRAY ? Attending Dr: Amber Ortiz MD ? Ordering Physician: Amber Ortiz MD ?? Date of Service: 06/18/24 ?? Procedure(s): XR hip RAINE min 3V w/wo pel ?? Accession Number(s): [id number] ? cc: Amber Ortiz MD; Roma,Leland MIMS [...] DD/ 0831 ? TD/TT: 06/19/24 0831 ? Swatch Clerk: ? Procedure Note Donotuseinterpreter, Image - 06/19/2024 [place] [address] XRay Report Signed Patient: Michele Novak#: M [id number] : 1965Acct:[id number] Age/Sex: 59 / MADM Date: 06/18/24 Loc: VANESSA.MAEGAN Attending Dr: Amber Ortiz MD Ordering Physician: Amber Ortiz MD Date of Service: 06/18/24 Procedure(s): XR hip RAINE min 3V w/wo pel Accession Number(s): [id number] cc: Amber Ortiz MD; Name,Leland MIMS CLINICAL [...] in OV> 06/19/24831 DD/ 0 TD/TT: 06/19/24830 Swatch Clerk: Amber Ortiz MD IMG XR PROCEDURES Edited Result - Final * XR Lumbar Spine 2-3 Views (06/18/2024 4:40 PM EST) Anatomical Region Laterality Modality Spine, L-spine Radiographic Rasheeda ging 06/18/2024 4:40 PM EST Narrative 06/18/2024 4:41 PM EST ? [facility] ?[address] ?[place] [address] ?XRay Report ? Signed ? Patient: Moris Francisco,Steven ?MR#: M ?? [id number] ? : 1965 ?Acct:[id number] ? Age/Sex: 59 / M ?ADM Date: 06/18/24 ? Loc: HO.XRAY ? Attending Dr: Amber Ortiz MD ? Ordering Physician: Stacey Wade MD ?? Date of Service: 06/18/24 ?? Procedure(s): XR lumbar spine 2-3V ?? Accession Number(s): [id number] ? cc: Stacey Wade MD; Name,Leland MIMS [...] DD/ 1640 ? TD/TT: 06/18/24 1640 ? Swatch Clerk: ? Procedure Note Darlin, Image - 06/18/[address] [address] XRay Report Signed Patient: Michele Novak#: M [id number] : 1965Acct:[id number] Age/Sex: 59 / MADM Date: 06/18/24 Loc: ROLLY Attending Dr: Amber Ortiz MD Ordering Physician: Stacey Wade MD Date of Service: 06/18/24 Procedure(s): XR lumbar spine 2-3V Accession Number(s): [id number] cc: Stacey Wade MD; Name,Leland MIMS CLINICAL HISTORY: worsening chroic pain 4 views lumbar spine Comparison: None Findings: Normal alignment. No acute fractures . Grade 1 anterolisthesis of L4 on L5. Multilevel disc space narrowing and endplate osteophyte formation, as well as facet hypertrophy. IMPRESSION: No acute findings. This document has been electronically signed by: Blanquita Catnor MD on 06/18/2024 16:40:04 Dictated By: Blanquita Cantor MD Signed By: <Electronically signed by Blanquita Cantor MD in OV> 06/18/24 1640 DD/ 1640 TD/TT: 06/18/24 1640 Swatch Clerk: us Stacey Maldonado MD IMG XR PROCEDURES Fin al Result * Hepatitis C Antibody with Reflex to HCV, RNA, Quantitative, Real-Time PCR (10/14/2023 11:05 AM EDT) Hepatitis C Antibody Nonreactive Nonreactive [facility] Comment:Antibodies to HCV no t detected; does not exclude early acuteHCV infection. Blood Venous blood specimen / Unknown 10/14/2023 11:05 AM EDT 10/14/2023 1:15 PM EDT us Leland Brandon MD LAB BLOOD ORDERABLES Final Resul t [facility] [address] [place] [phone] * HIV-1/2 Antigen and Antibodies, Fourth Generation, with Reflexes (10/14/2023 11:05 AM EDT) HIV AB/AG Nonreactive Nonreactive [facility] Comment:HIV-1 p24 Ag and/or HIV-1/HIV-2 Ab not detected.A test result that is nonreactive does not exclude thepossibility of exposure to or infection with HIV-1 and/orHIV-2. Nonreactive results in this assay for individualswith prior exposure to HIV-1 and/or HIV-2 may be due toantigen and antibody levels that are below the limit ofdetection of this assay.The ProZyme HIV Ag/Ab Combo assay result andsupplemental assay results should be interpreted inconjunction with the patient's clinical presentation,history and other laboratory results. If the results areinconsistent with clinical evidence, additional testing issuggested to confirm the result. Blood Venous blood specimen / Unknown 10/14/2023 11:05 AM EDT 10/14/2023 1:15 PM EDT us Leland Brandon MD LAB BLOOD ORDERABLES Final Resul t Performing Organization Address [facility] Co de Phone Number [facility] [address] [place] [address] [phone] * (ABNORMAL) Lipid Panel, Standard (10/14/2023 11:05 AM EDT) Triglycerides 105 <150 mg/dL [facility] Comment:Desirable Triglyceri de: less than 150 mg/dLBorderline High Triglyceride 150-199 mg/dLHigh Triglyceride: 200-499 mg/dLVery High Triglyceride: greater than or equal to 5OO mg/dL Cholesterol 192 <200 mg/dL [facility] Comment:Desirable Cholestero l: less than 200 mg/dLBorderline High Cholesterol: 200-239 mg/dLHigh Cholesterol: greater than 239 mg/dL LDL Cholesterol Calculated 102(H) <100 mg/dL [facility] Comment:Desirable LDL: less than 100 mg/dLNear Optimal/Above Optimal LDL: 110- 129 mg/dLBorderline High LDL: 130-159 mg/dLHigh LDL: 160-189 mg/dLVery High LDL: greater than or equal to 190 mg/dL HDL Cholesterol 69 >40 mg/dL [facility] Comment:Desirable HDL: great er than 40 mg/dL Note: This HDL assay may give artificially low results in patients with liver disease. Blood Venous blood specimen / Unknown 10/14/2023 11:05 AM EDT 10/14/2023 1:15 PM EDT us Leland Brandon MD LAB BLOOD ORDERABLES Final Resul t Performing Organization Address City/[facility]/ZIP Co de Phone Number [facility] [address] [place] [address] [phone] * Hm Colonoscopy (07/14/2023) Colonoscopy Normal Normal Comment:Normal Colonoscopy r epeat 10 years Leland Brandon MD HEALTH MAINTENANCE Final Result from Last 3 Months or Most Recently Relevant to Health Maintenance [place] [address] [place] [address] - [employer] Care Teams Mechanical Maintenance Relationship Specialty Start Date End Date Name, MD Leland [address] [place] [phone] PCP - General Family Medicine 08/26/15
--- OUTSIDE RECORDS SUMMARY | 2024-08-31 12:44 | XMS_ITS ---
Author Organization [facility] Address [address] [place] [address] Care Team Providers Care Jailkeeper Name Role Phone Name Leland MIMS Primary Care Provider Unavailabl e Black, Yaquelin Unavailable [phone] PericNalini addison Unavailable [phone] Allergies No Known Allergies REASON FOR VISIT Painful nail(s) aggrevated by shoes causing difficulty standing/walking, Foot pain Medications Medication SIG (Take, Route, Frequency, Duration) Notes Start Date End Date Status Naproxen 500 MG 1 tablet Orally WITH FOOD Twice a day for 14 days 01/28/2023 Not-Taki ng Ciclopirox 0.77 % 1 application Nurse Gynecology ally Twice a day for 30 days [...] Piroxicam 20 MG TAKE 1 CAPSULE BY [facility] EVERY DAY WITH FOOD FOR 30 [...] 05/21/2024 Encounters Encounter Location Date Provider Diagnosis [facility] [address] [address] 05/21/2024 Nalini Dyer Tinea unguium B35.1 ; [...] Provider Name:Nalini addison, 09/06/2024 02:30:00 PM, [address] [facility], [place], [phone], Procedure Notes * Category Sub-Category Detail Notes [...] * Rajeev MCLAUGHLINOB: 3 (59 yo M)Acc No.[id number]:05/21/2024 Progress Note Patient:?Steven MCLAUGHLIN Provider:?Nalini Dyer DPM :1965???Age:59 Y???Sex:Male Jose e:05/21/2024 Address:[address] [place], [place] [id number] Pcp:Leland Brandon MD Subjective: * Chief Complaints: [...] M77.52??? Plan: * Treatment: * Procedures:?Injection:?Sm. Joint, Bursa?46084, J0702 Injection - Left 2nd interspace sm/med [...] ( 0-1) out of 10.? * Procedure Codes:?98862 DEBRI DE NAIL, 6 OR MORE, Modifiers: XS 79810 DRAIN/INJECT, JOINT/BURSA, Modifiers: XS J0702 INJ BETAMETHSN [...] Dyer DPM Date:?02/2024 Generated for Luisa john/Faxing/eTransmitting on:?08/31/2024 12:43 PM EDT History and Physical Notes * [...]
--- OUTSIDE RECORDS SUMMARY | 2024-08-31 12:44 | XMS_ITS | Encounter Summary ---
Author Organization [employer] Address [address] [facility] 7t [place] [address] Care Team Providers Care Stone Carver Name Role Phone Name, Leland MIMS Primary Care Provider [phone] Reason for Visit * Reason Onset Date Comments Med Refill 05/25/2024 Encounter Details Date Type Department Care Team ([facility] st Contact Info) Description 05/25/2024 Telephone [facility] [address] [place], [place] [phone] Name, MD Leland [address] [place] [address] Med Refill Social History Tobacco Use Types [...] 4 MG tablet To be sent to: [facility] documented in this encounter Plan of Treatment Upcoming Encounters Date Type Department Care Team (Late st Contact Info) Description 09/17/2024 10:15 AM EDT Office Visit [facility] [address] [place] [phone] Name, MD Leland [address] [place] [address] documented as of this encounter Visit Diagnoses Not on filedocumented in this encounter Additional Health Concerns Assessment Noted Time PHQ-9 Depression Total Score: 0 09/14/19 24 3:10 PM EDT documented as of this encounter Care Teams Stone Carver Relationship Specialty Start Date End Date Name, MD Leland [address] [place] [address] PCP - General Family Medicine 08/26/15 documented as of this encounter
--- OUTSIDE RECORDS SUMMARY | 2024-08-31 12:44 | XMS_ITS | Referral Summary ---
Author Organization [facility] Address [address] [place] [address] Care Team Providers Care Engine Maintenance Mechanic Name Role Phone No, Pcp Primary Care [...] Treatment Not on file Insurance Care Teams Engine Maintenance Mechanic Relationship Specialty Start Date End Date No, Pcp HIREN PCP - General 01/29/22
--- OUTSIDE RECORDS SUMMARY | 2024-08-31 12:44 | XMS_ITS | Encounter Summary ---
Author Organization [employer] Address [address] [facility] 7[address] [place] [address] Care Team Providers Care Electronic Device Monitor Name Role Phone Name, Leland MIMS Primary Care Provider [phone] Reason for Visit * Reason Onset Date Comments FYI 07/26/2024 Encounter Details Date Type Department Care Team ([facility] st Contact Info) Description 07/26/2024 Telephone [facility] [address] [place] [address] Name, MD Leland [address] [place] [address] Social History Tobacco Use Types Packs/Day Years [...] 8:17 AM EST Tc from Sol with [facility] stating that they contact Pt but he refused Both time and they are only allowed to try and offer the Services twice. So they said that they were not going to keep trying. If any questions contact Sol at [phone] documented in this encounter Plan of Treatment Upcoming Encounters Date Type Department Care Team (Late st Contact Info) Description 09/17/2024 10:15 AM EDT Office Visit [facility] [address] [place] [address] Name, MD Leland [address] [place] [address] documented as of this encounter Visit Diagnoses Not on filedocumented in this encounter Additional Health Concerns Assessment Noted Time PHQ-9 Depression Total Score: 0 09/14/19 24 3:10 PM EDT documented as of this encounter Care Teams Electronic Device Monitor Relationship Specialty Start Date End Date Name, MD Leland [address] [place] [phone] PCP - General Family Medicine 08/26/15 documented as of this encounter
--- OUTSIDE RECORDS SUMMARY | 2024-08-31 12:44 | XMS_ITS | Encounter Summary ---
Author Organization [employer] Address [address] [facility] 7t [place] [address] Care Team Providers Care Statistics Manager Name Role Phone Name, Leland MIMS Primary Care Provider Reason for Visit * Reason Comments Med Refill Encounter Details Date Type Department Care Team ([facility] Contact Info) Description 10/22/2022 Refill [facility] [address] [place], [place] [phone] Name, MD Leland [address] [place] [address] Insomnia, unspecified type Social History Tobacco Use [...] Upcoming Encounters Date Type Department Care Team ([facility] Contact Info) Description 09/17/2024 10:15 AM EDT Office Visit [facility] [address] [place] [address] Name, MD Leland [address] [place] [address] documented as of this encounter Visit Diagnoses Diagnosis Insomnia, unspecified type documented in this encounter Additional Health Concerns Assessment Noted Time PHQ-9 Depression Total Score: 0 09/07/19 23 1:16 PM EDT documented as of this encounter Care Teams Statistics Manager Relationship Specialty Start Date End Date Name, MD Leland [address] [place] [address] PCP - General Family Medicine 08/26/15 documented as of this encounter
--- OUTSIDE RECORDS SUMMARY | 2024-08-31 12:44 | XMS_ITS | Data Portability ---
Author Organization [employer] Address [address] [place] [id number] Care Team Providers Care Dry Cans Operator Name Role Phone [facility] Referring Provider [facility] Referring Provider Assessment No assessment recorded. Plan of Treatment Reminders Order Date Submit Date Provider Last Modified By Organization Details Last Modified Time Details Appointments None recorded. Lab None recorded. Referral None recorded. Procedures None recorded. Surgeries None recorded. Imaging None recorded. Medication Orders cephalexin 500 mg capsule 2023 024 [facility] #[id number], [address] [place], [address], 4 20:15:29 cephalexin 500 mg capsule 2023 024 [email or web address] Not available 4 20:15:27 Patient TargetsNo targets recorded. Patient InstructionsNo [...] Available Not Available No t Available omega 7-xee-hjh-fi sh oil 1,000 mg (120 mg-180 mg) [...] Updated DateTime 4 86 /min 18 /min 848815. 72 g 98.6 [degF] 98 % 98 % 154 mm[Hg] 94 mm[Hg] Not Available [employer] - Standardized Safety 4 20:11:37 Date Recorded Respiratory rate Oxygen saturation Oxygen saturation in Arterial blood by Pulse oximetry Body temperature Heart rate Systolic blood pressure Diastolic blood pressure Provider Name and Address Organization Details Last Updated DateTime 2 20 /min 94 % 94 % 97.7 [degF] 74 /min 125 mm[Hg] 75 mm[Hg] Not Available [employer] - Standardized Safety 2 07:41:40 Social History None recorded. Functional Status None recorded. Mental Status None recorded. Family History Nothing Reported. Medical History No medical history recorded. Past Encounters Encounter ID Performer Location Encounter Start Date Encounter Closed Date Diagnosis/Indication Diagnosis SNOMED-CT Code Diagnosis ICD10 Code Diagnosis Note [id number] Lucia Khoury MD [facility] - [facility] [address] [place] [id number] 12/05/2021 07:41:38 02/10/2022 10:34:04 History of deep vein thrombosis 799062831 Z86.718 56 year old male with chronic [...] primary regarding why this change was made. [id number] Arsalan Vera MD Main - [facility] [address] [place] [id number] 06/23/2023 20:11:26 06/23/2023 22:45:58 Cellulitis of left lower limb [id number] L03.116 Reports increased redness and swelling of LLE. On enoxaparin for history of DVT. No new swelling. Pulses normal per mold carpenter. No fevers, chills, systemic symptoms. Plan for empiric treatment with cephalexin and PCP follow-up Health Concerns Section Related Observation LastModified by Organization Detai ls LastModified Time None Recorded Concern Status LastModified by Organization Details LastModified Time None Recorded Advance Directives Directive None Recorded Payers Encounter Date Sequence Insurance Name Policy Number Policy Simon Covered Member ID Simon Member ID Guarantor Name 12/04/2021 1 [facility] - DOS PRIOR TO 2022 - DUAL ELIGIBLE (MEDICARE REPLACEMENT/ADV ANTAGE - HMO) Steven Subramanian [id number] Steven Subramanian 06/23/2023 1 [facility] - DOS ON OR AFTER 2022 - DUAL ELIGIBLE - [facility] OPTIONS AND ONE CARE (MEDICARE REPLACEMENT/ADV ANTAGE - HMO) Steven Subramanian [id number] Steven Subramanian Notes Date Note Type Note [...] ................... ................... ................... ................... ................... ................... ........ [employer] Software Developer Note: Patient bilateral lower extremity pain times [...] ........ Disposition: Fulfilled Lucia Khoury MD [address] [facility],[address], [place], [address], [employer] 12/05/2021 07:49:52 06/23/2023 text/html HPI: Chronic deep [...] ................... ................... ................... ................... ................... ................... ........ [employer] Rails Software Developer Note From Gatito Rios: Pt co itchy redness on left lower extremity that is also painful. Pt denies fever nausea vomiting diarrhea. Baseline vitals assessed. Extremity redish warm to touch . No edema. [facility] contacted pics uploaded ?500mg keflex given po and RX called in . Pt education on signs indicating the ER. ................... ................... ................... ................... ................... ................... ................... ........ Disposition: Fulfilled Arsalan Vera MD [address] [facility],[address], [place], [address], [employer] 06/23/2023 21:40:40
--- NOTE | 2024-08-31 12:49 | A.SPINEOV_ITS ---
Vital Signs 08/31/24 13:04 Height 6 ft Weight 293 lb BMI 39.7 Intake Visit Reasons: spinal stenosis, lumbar region Intake Note: Mr. Subramanian is here today c/o leg numbness and weakness making it difficult to walk. Supervisor Ski Production Required: Yes Supervisor Ski Production Name: Tablet Allergies No Known Allergies Allergy (Verified 08/31/24 13:05) Physical Exam Vital Signs: BMI result Body Mass Index 39.7 Assessment & Plan Assessment & Plan (1) Spinal stenosis, lumbar region with neurogenic claudication: Code(s): M48.062 - Spinal stenosis, lumbar region with neurogenic claudication Category: Medical Plan Dear Maxine, Thank you for referring Mr Moris Singh to our office today. He is a very nice 59-year-old Swiss-speaking gentleman. This visit was done today with the help of hotel registration clerk [id number]. He has had back pain for many years, going back to a fall he took off a 3rd floor building when he was living in [place]. He has been just dealing with that pain for many years, but over the last few months he has developed severe bilateral radiculopathy going down his legs when he stands and walks. He still has the back pain which he localizes over the lower lumbar spine area. The pain has become quite intense and he is having a hard time just standing up straight. He has gotten to the point now where he is walking just very slow for short distances before he has to sit down. He has been taking Tylenol and tizanidine. To this point he has had no dedicated conservative treatment. He comes in today with a lumbar MRI done at [facility] showing multilevel stenosis. PMH: He is a history of arthritis, blood clots, history of pulmonary embolus, recently had an IVC filter placed. History of sleep apneaCOPD, varicose veins of the left lower extremity with occasional ulceration, chronic pain on methadone. History of hypertension and morbid obesity. He does not report any history of strokes, cardiac disorders, liver disease, kidney disease, diabetes, cancer Social hx: He quit smoking last year, does not drink use any drugs. He has been on methadone for years and that is because he was on oxycodone after his fall and ultimately had to be transitioned to methadone for the chronic pain. Medications: Methadone, lisinopril, gabapentin, zolpidem, Pradaxa, enoxaparin, Tylenol, Anoro Allergies: None Physical exam: Morbidly obese, BMI of 40, limited strength in the hip flexion secondary to pain, but his distal lower extremity strength is full. Reflexes di minished bilaterally at the patella and the Achilles. Imaging review: Lumbar MRI done at [facility] shows a grade 1 spondylolisthesis at L4-5 with severe stenosis, he has congenitally short pedicles giving him moderate to severe stenosis at L2-3 and L3-4. Impression: 59-year-old male with a history of chronic low back pain, related to a fall many years ago, been on chronic methadone for that for years, presents with bilateral lower extremity claudicating pain developed over the last few months. His MRI shows severe stenosis at L4-5 with a grade 1 spondylolisthesis. He also has other varying degrees of stenosis at L2-3 and L3-4 in the moderate to severe range related to congenitally short pedicles. To this point he has had no dedicated conservative treatment. Despite what looks like surgical targets, his insurance company will deny surgery unless we put him through some form of conservative management. I gave him a prescription for physical therapy and recommended he undergo a few weeks or more of that. If it is too painful I told him just to stop. It is also worth considering an injection just to complete the conservative management end of things if you think it is reasonable given his body habitus. Also has the issues with the blood thinners, and coming off those for the procedure. He did recently have an IVC filter put in. I will leave it up to you if you think that is something reasonable to do or we can always just see how it goes with the physical therapy as the only modality for conservative management. Sometimes the insurance companies will accept that in addition to medication trials which he is already on. I will also send him for flexion-extension x-ray to rule out instability. I will see him back in 6 weeks. Thank you for allowing us to care for your patient. The total time spent with this visit with this patient was 45 minutes reviewing history, physical exam, lumbar imaging review, and implementation of treatment plan or further diagnostic testing Francisco Cooper MD,PhD [facility] Orders: Orders PT Evaluation and Treatment Today M48.062 - Spinal stenosis, lumbar region with neurogenic claudication XR lumbar spine 4V min Today M48.062 - Spinal stenosis, lumbar region with neurogenic claudication Coding Level of Care Code New Pt Level 4 (66844) Diagnoses Spinal stenosis, lumbar region with neurogenic claudication M48.062
[2024-08-31 13:04] VITALS: BMI 39.7
--- OUTSIDE RECORDS SUMMARY | 2024-08-31 15:03 | XMS_ITS | Encounter Summary ---
Author Organization [employer] Address [address] [facility] 7t [place] [address] Care Team Providers Care Evaporator Helper Name Role Phone Name, Leland MIMS Primary Care Provider Reason for Visit * Reason Comments Med Refill Encounter Details Date Type Department Care Team ([facility] st Contact Info) Description 06/20/2023 Refill [facility] [address] [place], [place] [phone] Name, MD Leland [address] [place] [address] Insomnia, unspecified type Social History Tobacco Use [...] Description 09/17/2024 10:15 AM EDT Office Visit [facility] [address] [place] [phone] NameLeland MD [address] [place] [address] documented as of this encounter Visit Diagnoses Diagnosis Insomnia, unspecified type documented in this encounter Additional Health Concerns Assessment Noted Time PHQ-9 Depression Total Score: 0 09/07/19 23 1:16 PM EDT documented as of this encounter Care Teams Evaporator Helper Relationship Specialty Start Date End Date Name, MD Leland [address] [place] [address] PCP - General Family Medicine 08/26/15 documented as of this encounter
--- OUTSIDE RECORDS SUMMARY | 2024-08-31 15:03 | XMS_ITS | Encounter Summary ---
Author Organization [employer] Address [address] [facility] [address] [place] [address] Care Team Providers Care Graining Operator Name Role Phone Name, Leland MIMS Primary Care Provider [phone] Encounter Details Date Type Department Care Team (Late st Contact Info) Description 08/07/2024 1:15 PM EST Office Visit [facility] [address] [place], [place] [phone] Stacey Wade MD [address] [place] [address] Cellulitis of left lower extremity (Primary Dx); [...] old male who presents for HDF . [facility] (07/23/24-07/24/24) Patient with PMH including unprovoked DVTs/PE [...] of femoral vein of right lower extremity ([facility]) Anxiety Primary osteoarthritis of both knees Chronic deep vein thrombosis (DVT) of left lower extremity ([facility]) Chronic pain Chronic pain syndrome Chronic peripheral venous hypertension Compression fracture of vertebral column ([facility]) Constipation Depressive disorder Rotator cuff disorder Esotropia HTN (hypertension) Foot pain Heel pain Idiopathic scoliosis Osteoarthritis of right ankle and foot Insomnia Migraine without aura, not refractory Severe obesity ([facility]) Chronic narcotic use Nocturnal enuresis Opioid dependence ([facility]) Obstructive sleep apnea syndrome Neurogenic claudication due to lumbar spinal stenosis Recurrent deep vein thrombosis ([facility]) Recurrent major depression in partial remission ([facility]) Swelling of lower limb 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 ([facility]) Inversion of right nipple Cigarette smoker Guttate psoriasis Hard of hearing Knee pain Impaired glucose tolerance Posttraumatic stress disorder Total perforation of tympanic membrane Refractive error Exotropia, right eye 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 (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) use of opiate analgesic Hammer toe [...] as needed, alternating nostrils with each dose Fdavhecq-Lokyyjbmbh-Fnvyqoihx (Triple Antibiotic) 3.5-400-5000 ointment Apply thin layer [...] Bactrim twice a dayfor 10 days I hiv counselor patient that if problem persists or [...] Bactrim twice a dayfor 10 days I hiv counselor patient that if problem persists or [...] Description 09/17/2024 10:15 AM EDT Office Visit [facility] [address] [place] [address] Name, MD Leland [address] [place] [address] documented as of this encounter Visit Diagnoses Diagnosis Cellulitis of left lower extremity- Primary Neurogenic claudication due to lumbar spinal stenosis Spinal stenosis of lumbar region documented in this encounter Additional Health Concerns Assessment Noted Time PHQ-9 Depression Total Score: 0 09/14/19 24 3:10 PM EDT documented as of this encounter Care Teams Graining Operator Relationship Specialty Start Date End Date Name, MD Leland 230 [facility] [address] PCP - General Family Medicine 08/26/15 documented as of this encounter
--- OUTSIDE RECORDS SUMMARY | 2024-08-31 15:03 | XMS_ITS | Encounter Summary ---
Author Organization [employer] Address [address] [facility] 7t [place] [address] Care Team Providers Care Child Care Lead Teacher Name Role Phone Name, Leland MIMS Primary Care Provider [phone] Reason for Visit * Reason Onset Date Comments Nurse Triage 08/06/2024 Encounter Details Date Type Department Care Team ([facility] st Contact Info) Description 08/06/2024 Telephone [facility] [address] [place] [address] Name, MD Leland [address] [place] [address] Nurse Triage Social History Tobacco Use Types [...] 08/06/2024 3:03 PM EST Triage call with [facility] lead [place] [id number] Pt is called several times and call [...] Description 09/17/2024 10:15 AM EDT Office Visit [facility] [address] [place] [address] Name, MD Leland [address] [place] [address] documented as of this encounter Visit Diagnoses Diagnosis Osteoarthritis of right ankle and foot Swelling of lower limb documented in this encounter Additional Health Concerns Assessment Noted Time PHQ-9 Depression Total Score: 0 09/14/19 24 3:10 PM EDT documented as of this encounter Care Teams Child Care Lead Teacher Relationship Specialty Start Date End Date Name, MD Leland [address] [place] [address] PCP - General Family Medicine 08/26/15 documented as of this encounter
--- OUTSIDE RECORDS SUMMARY | 2024-08-31 15:03 | XMS_ITS | Encounter Summary ---
Author Organization [employer] Address [address] [facility] [address] 7t [place] [address] Care Team Providers Care Collar Feller Name Role Phone Name, Leland MIMS Primary Care Provider [phone] Encounter Details Date Type Department Care Team (Late st Contact Info) Description 07/19/2023 Abstract [facility] [address] [place] [address] Name, MD Leland [address] [place], [place] [phone] Social History Tobacco Use Types Packs/Day Years [...] Description 09/17/2024 10:15 AM EDT Office Visit [facility] [address] [place], [place] [phone] Name, MD Leland [address] [place] [address] documented as of this encounter Procedures Procedure [...] documented as of this encounter Care Teams Collar Feller Relationship Specialty Start Date End Date Name, MD Leland [address] [place] [address] PCP - General Family Medicine 08/26/15 documented as of this encounter
--- OUTSIDE RECORDS SUMMARY | 2024-08-31 15:04 | XMS_ITS | Encounter Summary ---
Author Organization [employer] Address [address] [facility] 7t [place] [address] Care Team Providers Care Frame Expander Name Role Phone NameLeland MD Primary Care Provider [phone] Reason for Referral * Consultation (Routine) - Authorized Specialty Diagnoses / Procedures Referred By Kahlil hoskins Referred To Contact Neurology Diagnoses Tremor of both hands Leland Brandon MD [address] [place] [address] Phone: tel: fax: Geetha Greene MD [address] [place] [address] [place] [address] Phone: tel: fax: Referral ID Status Reason Start Date Expiration Date Visits Requested Visits Authorized [id number] Authorized Specialty Services Required 08/01/2024 08/01/2025 1 1 Reason for Visit * Reason Comments Follow-up Encounter Details Date Type Department Care Team (Late st Contact Info) Description 08/01/2024 2:15 PM EST Office Visit [facility] MED[facility]INE [address] [place] [phone] Leland Brandon MD [address] [place] [address] [phone] Cellulitis, unspecified cellulitis site (Primary Dx); Chronic [...] was hospitalized from to July 25 at [facility] because of left lower extremity cellulitis. When [...] past. He was advised to follow-up with [facility] hematology as outpatient (he has seen them [...] Description 09/17/2024 10:15 AM EDT Office Visit [facility] [address] [place] [address] Leland Brandon MD [address] [place] [address] Scheduled Referrals Name Type Priority Associated Diagnoses [...] Free T4 0.69 0.32 - 4.0 uIU/mL [facility] Blood Venous blood specimen / Unknown 08/01/2024 3:05 PM EST 08/01/2024 4:20 PM EST Leland Brandon MD LAB BLOOD ORDERABLES Final Resul t [facility] [address] [place] [phone] [phone] documented in this encounter Visit Diagnoses Diagnosis Cellulitis, unspecified cellulitis site- Primary Chronic pain syndrome Tremor of both hands documented in this encounter Additional Health Concerns Assessment Noted Time PHQ-9 Depression Total Score: 0 09/14/19 24 3:10 PM EDT documented as of this encounter Care Teams Frame Expander Relationship Specialty Start Date End Date Leland Brandon MD [address] [place] [address] PCP - General Family Medicine 08/26/15 documented as of this encounter
--- OUTSIDE RECORDS SUMMARY | 2024-08-31 15:04 | XMS_ITS | Encounter Summary ---
Author Organization [employer] Address 75 [facility] 7t [place] [address] Care Team Providers Care Section 8 Property Manager Name Role Phone Name, Leland MIMS Primary Care Provider [phone] Reason for Visit * Reason Onset Date Comments Med Refill 01/02/2024 Encounter Details Date Type Department Care Team ([facility] st Contact Info) Description 01/02/2024 Telephone [facility] MED[facility] [address] [place] [address] Name, MD Leland [address] [place] [address] Med Refill Social History Tobacco Use Types [...] 10 MG tablet To be sent to: [facility] [place], [place] - [address] [place] [address] documented in this encounter Plan of Treatment Upcoming Encounters Date Type Department Care Team (Late st Contact Info) Description 09/17/2024 10:15 AM EDT Office Visit [facility] MED[facility] [address] [place] [address] Name, MD Leland [address] [place] [address] documented as of this encounter Visit Diagnoses Not on filedocumented in this encounter Additional Health Concerns Assessment Noted Time PHQ-9 Depression Total Score: 0 09/14/19 24 3:10 PM EDT documented as of this encounter Care Teams Section 8 Property Manager Relationship Specialty Start Date End Date Name, MD Leland [address] [place] [address] PCP - General Family Medicine 08/26/15 documented as of this encounter
--- OUTSIDE RECORDS SUMMARY | 2024-08-31 15:04 | XMS_ITS | Encounter Summary ---
Author Organization [employer] Address [address] [facility] 7t [place] [address] Care Team Providers Care Lsat Instructor Name Role Phone Name, Leland MIMS Primary Care Provider [phone] Reason for Visit * Reason Comments Transition Of Care (Tcm) HDF scheduled Encounter Details Date Type Department Care Team ([facility] st Contact Info) Description 08/17/2024 Patient Outreach [facility] [address] [place], [place] [phone] Name, MD Leland [address] [place] [address] Transition Of Care (Tcm) (HDF scheduled) Social [...] 08/17/24 1022 Hospital Discharges and Admission for [facility] Type of Visit Hospital Admission Date of Admission/Visit 08/13/24 Date of Discharge 08/16/24 Facility [facility] Diagnosis DVT/Cellulitis Disposition Discharged Home Follow-Up Actions [...] Wednesdays, and Walk-In Urgent Care Located in [facility]. Patient providedwith after-hours line for [facility], , which offer night time triage service and option to transfer to coil connector provider if needed. [facility] discharge summary has been scanned into patient chart for review. documented in this encounter Plan of Treatment Upcoming Encounters Date Type Department Care Team (Late st Contact Info) Description 09/17/2024 10:15 AM EDT Office Visit [facility] [address] [place] [address] Name, MD Leland [address] [place] [address] documented as of this encounter Visit Diagnoses Not on filedocumented in this encounter Additional Health Concerns Assessment Noted Time PHQ-9 Depression Total Score: 0 09/14/19 24 3:10 PM EDT documented as of this encounter Care Teams Lsat Instructor Relationship Specialty Start Date End Date NameLeland MD [address] [place] [address] PCP - General Family Medicine 08/26/15 documented as of this encounter
--- OUTSIDE RECORDS SUMMARY | 2024-08-31 15:04 | XMS_ITS | Encounter Summary ---
Author Organization [employer] Address 75 [facility] 7t [place] [address] Care Team Providers Care Global Compensation Manager Name Role Phone Name, Leland MIMS Primary Care Provider [phone] Reason for Visit * Reason Onset Date Comments Med Refill 08/16/2024 Encounter Details Date Type Department Care Team ([facility] st Contact Info) Description 08/16/2024 Refill [facility] MEDICINE [address] [place] [address] Name, MD Leland [address] [place] [address] Insomnia, unspecified type Social History Tobacco Use [...] Vogt LPN - 08/16/2024 3:57 PM EST EXPERIMENTAL AIRCRAFT MECHANIC checked on 08/16/24. Next appointment 09/17/24. * Telephone Encounter - Loi Cobos - 08/16/2024 3:54 PM EST TC from pt requesting medication refill. Medications needing refill : zolpidem (Ambien) 10 MG tablet To be sent to: [facility] - [place], [place] - [address] [place] [address] documented in this encounter Plan of Treatment Upcoming Encounters Date Type Department Care Team (Late st Contact Info) Description 09/17/2024 10:15 AM EDT Office Visit [facility] MEDICINE [address] [place] [address] Name, MD Leland [address] [place] [address] documented as of this encounter Visit Diagnoses Diagnosis Insomnia, unspecified type documented in this encounter Additional Health Concerns Assessment Noted Time PHQ-9 Depression Total Score: 0 09/14/19 24 3:10 PM EDT documented as of this encounter Care Teams Global Compensation Manager Relationship Specialty Start Date End Date Name, MD Leland [address] [place] [address] PCP - General Family Medicine 08/26/15 documented as of this encounter
--- OUTSIDE RECORDS SUMMARY | 2024-08-31 15:04 | XMS_ITS | Encounter Summary ---
Author Organization [employer] Address 75 [facility] 7t [place] [address] Care Team Providers Care Tube Maker Name Role Phone Name, Leland MIMS Primary Care Provider [phone] Reason for Visit * Reason Onset Date Comments FYI 07/26/2024 Encounter Details Date Type Department Care Team ([facility] st Contact Info) Description 07/26/2024 Telephone [facility] MEDICINE [address] [place] [address] Name, MD Leland 230 [place] [address] Social History Tobacco Use Types Packs/Day Years [...] 8:17 AM EST Tc from Sol with [facility] stating that they contact Pt but he refused Both time and they are only allowed to try and offer the Services twice. So they said that they were not going to keep trying. If any questions contact Sol at [phone] documented in this encounter Plan of Treatment Upcoming Encounters Date Type Department Care Team (Late st Contact Info) Description 09/17/2024 10:15 AM EDT Office Visit [facility] MEDICINE [address] [place] [address] Name, MD Leland [address] [place] [address] documented as of this encounter Visit Diagnoses Not on filedocumented in this encounter Additional Health Concerns Assessment Noted Time PHQ-9 Depression Total Score: 0 09/14/19 24 3:10 PM EDT documented as of this encounter Care Teams Tube Maker Relationship Specialty Start Date End Date Name, MD Leland [address] [place] [address] PCP - General Family Medicine 08/26/15 documented as of this encounter
--- OUTSIDE RECORDS SUMMARY | 2024-08-31 15:04 | XMS_ITS | Encounter Summary ---
Author Organization [employer] Address [address] [facility] [address] 7t [place] [address] Care Team Providers Care Measurement Analyst Name Role Phone Name, Leland MIMS Primary Care Provider [phone] Encounter Details Date Type Department Care Team ([facility] st Contact Info) Description 03/24/2023 Telephone [facility] MEDICINE 230 [place], [place] [phone] Name, MD Leland 230 [place], [place] [phone] Social History Tobacco Use Types Packs/Day Years [...] encounter Miscellaneous Notes * Telephone Encounter - hCika Ocampo - 03/24/2023 3:38 PM EDT Tc from pt calling to advise PCP pt is currently admitted to [facility] and was found with blood clots to both legs. Any questions, contact pt at [phone] documented in this encounter Plan of Treatment Upcoming Encounters Date Type Department Care Team (Late st Contact Info) Description 09/17/2024 10:15 AM EDT Office Visit [facility] MEDICINE [address] [place] [address] Name, MD Leland 230 [place] [address] documented as of this encounter Visit Diagnoses Not on filedocumented in this encounter Additional Health Concerns Assessment Noted Time PHQ-9 Depression Total Score: 0 09/07/19 23 1:16 PM EDT documented as of this encounter Care Teams Measurement Analyst Relationship Specialty Start Date End Date Name, MD Leland [address] [place] [address] PCP - General Family Medicine 08/26/15 documented as of this encounter
--- OUTSIDE RECORDS SUMMARY | 2024-08-31 15:04 | XMS_ITS | Encounter Summary ---
Author Organization [employer] Address [address] [facility] [address] 7t [place] [address] Care Team Providers Care Precision Assembler Name Role Phone Name, Leland MIMS Primary Care Provider [phone] Encounter Details Date Type Department Care Team [...] Description 09/17/2024 10:15 AM EDT Office Visit [facility] MEDICINE [address] [place] [address] Name, MD Leland 230 [place] [address] documented as of this encounter Visit Diagnoses Not on filedocumented in this encounter Additional Health Concerns Assessment Noted Time PHQ-9 Depression Total Score: 0 09/14/19 24 3:10 PM EDT documented as of this encounter Care Teams Precision Assembler Relationship Specialty Start Date End Date NameLeland MD [address] [place] [address] PCP - General Family Medicine 08/26/15 documented as of this encounter
--- OUTSIDE RECORDS SUMMARY | 2024-08-31 15:04 | XMS_ITS | Clinical Summary ---
Author Organization [address] [facility] Address [address] [place] [address] Phone Care Team Providers Care Land Development Project Manager Name Role Phone Name, Leland MIMS Primary Care Provider [phone] Allergies No known active allergies Medications DICLOFENAC [...] ID:[id number] Group ID:[id number] Type:Not on file Address: [place] [address] [address] [place] [address] Care Teams Land Development Project Manager Relationship Specialty Start Date End Date Name, MD Leland [address] [place], [place] PCP - General 01/06/15
--- OUTSIDE RECORDS SUMMARY | 2024-08-31 15:04 | XMS_ITS | Encounter Summary ---
Author Organization [employer] Address 75 [facility] 7t [place] [address] Care Team Providers Care Musical String Maker Name Role Phone Name, Leland MIMS Primary Care Provider Reason for Visit * Reason Onset Date Comments Verbal Order 07/24/2024 Encounter Details Date Type Department Care Team ([facility] st Contact Info) Description 07/24/2024 Telephone [facility] MEDICINE 230 [place] [address] Name, MD Leland 230 [place] [address] Verbal Order Social History Tobacco Use Types [...] EST Telephone call returned to Katey at [facility], spoke with Katey. Gave verbal orders for VNA care. Asked when last office visit was, advised it was 07/06/24 with PCP and also pt was seen in [facility] walk in clinic on 07/14/24. Katey verbalized understanding, no further questions. * Telephone Encounter - João Bhatt - 07/24/2024 4:34 PM EST Tc from Emelia with [facility] requesting verbal orders. Please contact Emelia at [phone] Opt 2. documented in this encounter Plan of Treatment Upcoming Encounters Date Type Department Care Team (Late st Contact Info) Description 09/17/2024 10:15 AM EDT Office Visit [facility] MEDICINE [address] [place] [address] Name, MD Leland [address] [place] [address] documented as of this encounter Visit Diagnoses Not on filedocumented in this encounter Additional Health Concerns Assessment Noted Time PHQ-9 Depression Total Score: 0 09/14/19 24 3:10 PM EDT documented as of this encounter Care Teams Musical String Maker Relationship Specialty Start Date End Date Name, MD Leland [address] [place] [address] PCP - General Family Medicine 08/26/15 documented as of this encounter
--- OUTSIDE RECORDS SUMMARY | 2024-08-31 15:04 | XMS_ITS | Encounter Summary ---
Author Organization [employer] Address [address] [facility] [address] 7t [place] [address] Care Team Providers Care Active Directory Administrator Name Role Phone Name, Leland MIMS Primary Care Provider [phone] Reason for Visit * Reason Comments Leg Pain Encounter Details Date Type Department Care Team (Late st Contact Info) Description 08/20/2024 3:20 PM EDT Office Visit [facility] [address] [place] [phone] Name, MD Leland [address] [place] [address] Left leg pain (Primary Dx); Presence of [...] last appointment he was hospitalized again at [facility]. He presented with worsening left leg pain, redness, he was found to have extensive left leg DVT despite the use of Lovenox. He has failed multiple other anticoagulants in the past. The patient requiredplacement of IVC filter for prevention of pulmonary embolism. [facility] He is now on Xarelto for anticoagulation. [...] the topical antibiotic he was prescribed at [facility]. He is recommended leg elevation. He [...] Description 09/17/2024 10:15 AM EDT Office Visit [facility] MEDICINE [address] [place] [address] Name, MD Leland 230 [place] [address] documented as of this encounter Visit Diagnoses [...] documented as of this encounter Care Teams Active Directory Administrator Relationship Specialty Start Date End Date Leland Brandon MD [address] [place] [address] PCP - General Family Medicine 08/26/15 documented as of this encounter
--- OUTSIDE RECORDS SUMMARY | 2024-08-31 15:04 | XMS_ITS | Encounter Summary ---
Author Organization [employer] Address 75 [facility] 7t [place] [address] Care Team Providers Care Decontamination Worker Name Role Phone Name, Leland MIMS Primary Care Provider [phone] Reason for Visit * Reason Onset Date Comments Hospital Follow-up 08/17/2024 Encounter Details Date Type Department Care Team ([facility] st Contact Info) Description 08/17/2024 Telephone [facility] MEDICINE [address] [place] [address] Name, MD Leland [address] [place] [address] Hospital Follow-up Social History Tobacco Use Types [...] from pt requesting a HDF appt. Hospital: [facility] Date of admission: 08/12/24 Discharge date: 08/16/24 Diagnosed: blood clot in left leg documented in this encounter Plan of Treatment Upcoming Encounters Date Type Department Care Team (Late st Contact Info) Description 09/17/2024 10:15 AM EDT Office Visit [facility] MEDICINE [address] [place] [address] Name, MD Leland 230 [place] [address] documented as of this encounter Visit Diagnoses Not on filedocumented in this encounter Additional Health Concerns Assessment Noted Time PHQ-9 Depression Total Score: 0 09/14/19 24 3:10 PM EDT documented as of this encounter Care Teams Decontamination Worker Relationship Specialty Start Date End Date NameLeland MD 230 [place] [address] PCP - General Family Medicine 08/26/15 documented as of this encounter
--- OUTSIDE RECORDS SUMMARY | 2024-08-31 15:04 | XMS_ITS | Encounter Summary ---
Author Organization [employer] Address 75 [facility] 7t [place] [address] Care Team Providers Care Supervisor Detasseling Crew Name Role Phone Name, Leland MIMS Primary Care Provider [phone] Encounter Details Date Type Department Care Team ([facility] Contact Info) Description 11/22/[address] [phone] Name, MD Leland [address] [place] [phone] Social History Tobacco Use Types Packs/Day Years [...] Upcoming Encounters Date Type Department Care Team ([facility] Contact Info) Description 09/17/2024 10:15 AM EDT Office Visit [facility] MEDICINE [address] [place] [address], [place] [address] Name, MD Leland 230 [place] [address] documented as of this encounter Visit Diagnoses Not on filedocumented in this encounter Additional Health Concerns Assessment Noted Time PHQ-9 Depression Total Score: 0 09/07/19 23 1:16 PM EDT documented as of this encounter Care Teams Supervisor Detasseling Crew Relationship Specialty Start Date End Date Name, MD Leland [address] [place] [address] PCP - General Family Medicine 08/26/15 documented as of this encounter
--- OUTSIDE RECORDS SUMMARY | 2024-08-31 15:04 | XMS_ITS | Encounter Summary ---
Author Organization [employer] Address 75 [facility] 7t [place] [address] Care Team Providers Care Registered Nurse Practitioner Name Role Phone Name, Leland MIMS Primary Care Provider [phone] Reason for Visit * Reason Comments Med Refill Encounter Details Date Type Department Care Team ([facility] Contact Info) Description 02/21/[address] [facility] MEDICINE [address] [place] [phone] NameLeland MD [address] [place] [address] [phone] Insomnia, unspecified type Social History Tobacco Use [...] Upcoming Encounters Date Type Department Care Team ([facility] Contact Info) Description 09/17/2024 10:15 AM EDT Office Visit [facility] MEDICINE [address] [place] [address] [phone] Name, MD Leland [address] [place] [phone] documented as of this encounter Visit Diagnoses Diagnosis Insomnia, unspecified type documented in this encounter Additional Health Concerns Assessment Noted Time PHQ-9 Depression Total Score: 0 09/07/19 23 1:16 PM EDT documented as of this encounter Care Teams Registered Nurse Practitioner Relationship Specialty Start Date End Date Name, MD Leland 230 [place] [address] PCP - General Family Medicine 08/26/15 documented as of this encounter
--- OUTSIDE RECORDS SUMMARY | 2024-08-31 15:04 | XMS_ITS | Encounter Summary ---
Author Organization [employer] Address [address] [facility] [address] 7t [place] [address] Care Team Providers Care Orthopaedic Technologist Name Role Phone Name, Leland MIMS Primary Care Provider [phone] Reason for Visit * Reason Comments Med Refill Encounter Details Date Type Department Care Team ([facility] st Contact Info) Description 07/25/2024 Refill [facility] 230 [place], [place] [phone] Stacey Wade MD 230 [place] [address] Lumbago with sciatica, right side Social History [...] Description 09/17/2024 10:15 AM EDT Office Visit [facility] MEDICINE [address] [place] [address] Name, MD Leland [address] [place] [address] documented as of this encounter Visit Diagnoses Diagnosis Lumbago with sciatica, right side documented in this encounter Additional Health Concerns Assessment Noted Time PHQ-9 Depression Total Score: 0 09/14/19 24 3:10 PM EDT documented as of this encounter Care Teams Orthopaedic Technologist Relationship Specialty Start Date End Date Name, MD Leland [address] [place] [address] PCP - General Family Medicine 08/26/15 documented as of this encounter
--- OUTSIDE RECORDS SUMMARY | 2024-08-31 15:04 | XMS_ITS | Encounter Summary ---
Author Organization [employer] Address 75 [facility] 7t [place] [address] Care Team Providers Care Cyber Intelligence Analyst Name Role Phone Name, Leland MIMS Primary Care Provider [phone] Reason for Visit * Reason Onset Date Comments Referral 07/20/2022 Encounter Details Date Type Department Care Team ([facility] st Contact Info) Description 07/20/2022 Telephone [facility] MEDICINE 230 [place], [place] [phone] Name, MD Leland 230 [place] [address] Referral Social History Tobacco Use Types Packs/Day [...] Podiatry for new or existing referrals for [facility], [address], [place] [address], Phone #: , Reason for referral is Chronic Severe pain left foot. Marva advised pt has an X-ray done and patient does have the symptom of Chronic pain. Advised Marva with [facility] will forward to team nurse for new referral and marketing data specialist for existing referral. Please call Marva at [phone] documented in this encounter Plan of Treatment Upcoming Encounters Date Type Department Care Team (Late st Contact Info) Description 09/17/2024 10:15 AM EDT Office Visit [facility] MEDICINE [address] [place] [address] Name, MD Leland [address] [place] [address] documented as of this encounter Visit Diagnoses Not on filedocumented in this encounter Care Teams Cyber Intelligence Analyst Relationship Specialty Start Date End Date Name, MD Leland [address] [place] [address] PCP - General Family Medicine 08/26/15 documented as of this encounter
--- OUTSIDE RECORDS SUMMARY | 2024-08-31 15:04 | XMS_ITS | Encounter Summary ---
Author Organization [employer] Address 75 [facility] 7t [place] [address] Care Team Providers Care Umbrella Cutter Name Role Phone Name, Leland MIMS Primary Care Provider [phone] Reason for Visit * Reason Onset Date Comments Med Refill 07/28/2023 Encounter Details Date Type Department Care Team ([facility] st Contact Info) Description 07/28/2023 Telephone [facility] MEDICINE [address] [place] [address] Name, MD Leland [address] [place] [address] Med Refill Social History Tobacco Use Types [...] Vogt LPN - 07/28/2023 11:52 AM EST CONTINUOUS DRIER OPERATOR checked 07/28/23 last filled on 06/17/23 refill 2/3 patient should have 1 refill left. * Telephone Encounter - Hailee Louie - 07/28/2023 11:08 AM EST TC from pt requesting medication refill. Medications needing refill : gabapentin (Neurontin) 800 MG tablet To be sent to: [facility] [place] - [address] [place] [address] documented in this encounter Plan of Treatment Upcoming Encounters Date Type Department Care Team (Late st Contact Info) Description 09/17/2024 10:15 AM EDT Office Visit [facility] MEDICINE [address] [place] [address] Name, MD Leland [address] [place] [address] documented as of this encounter Visit Diagnoses Not on filedocumented in this encounter Additional Health Concerns Assessment Noted Time PHQ-9 Depression Total Score: 0 09/07/19 23 1:16 PM EDT documented as of this encounter Care Teams Umbrella Cutter Relationship Specialty Start Date End Date Name, MD Leland [address] [place] [address] PCP - General Family Medicine 08/26/15 documented as of this encounter
--- OUTSIDE RECORDS SUMMARY | 2024-08-31 15:04 | XMS_ITS | Encounter Summary ---
Author Organization [employer] Address 75 [facility] 7t [place] [address] Care Team Providers Care Gallery Assistant Name Role Phone Name, Leland MIMS Primary Care Provider [phone] Reason for Visit * Reason Onset Date Comments Nurse Triage 08/27/2024 Encounter Details Date Type Department Care Team ([facility] st Contact Info) Description 08/27/2024 Telephone [facility] MEDICINE 230 [place] [address] Name, MD Leland 230 [place], [place] [phone] Nurse Triage Social History Tobacco Use Types [...] call returned to patient with BLS Coy [phone]. Patient reports bone pain in both legs. Was seen today in Pain mgmt clinic in [facility] and was prescribed Methylprednisolone 4 mg x [...] Description 09/17/2024 10:15 AM EDT Office Visit [facility] MEDICINE [address] [place] [address] Name, MD Leland [address] [place] [address] documented as of this encounter Visit Diagnoses Not on filedocumented in this encounter Additional Health Concerns Assessment Noted Time PHQ-9 Depression Total Score: 0 09/14/19 24 3:10 PM EDT documented as of this encounter Care Teams Gallery Assistant Relationship Specialty Start Date End Date Name, MD Leland [address] [place] [address] PCP - General Family Medicine 08/26/15 documented as of this encounter
--- OUTSIDE RECORDS SUMMARY | 2024-08-31 15:04 | XMS_ITS | Encounter Summary ---
Author Organization [employer] Address 75 [facility] 7t [place] [address] Care Team Providers Care Horseshoer Name Role Phone Name, Leland MIMS Primary Care Provider [phone] Reason for Visit * Reason Onset Date Comments Call Back Request 08/30/2024 Encounter Details Date Type Department Care Team ([facility] st Contact Info) Description 08/30/2024 Telephone [facility] MEDICINE [address] [place] [address] Name, MD Leland [address] [place] [address] Call Back Request Social History Tobacco Use [...] procedure done , pt was inform from [facility] where procedure was done to contact PCP. Pt will like to know if could take walks with no problem due to procedure. Divehi speaker documented in this encounter Plan of Treatment Upcoming Encounters Date Type Department Care Team (Late st Contact Info) Description 09/17/2024 10:15 AM EDT Office Visit [facility] MEDICINE [address] [place] [address] Name, MD Leland [address] [place] [address] documented as of this encounter Visit Diagnoses Not on filedocumented in this encounter Additional Health Concerns Assessment Noted Time PHQ-9 Depression Total Score: 0 09/14/19 24 3:10 PM EDT documented as of this encounter Care Teams Horseshoer Relationship Specialty Start Date End Date NameLeland MD 230 [place] [address] PCP - General Family Medicine 08/26/15 documented as of this encounter
--- OUTSIDE RECORDS SUMMARY | 2024-08-31 15:04 | XMS_ITS | Encounter Summary ---
Author Organization [employer] Address [address] [facility] [address] 7t [place] [address] Care Team Providers Care Translator Deaf Name Role Phone Name, Leland MIMS Primary Care Provider [phone] Encounter Details Date Type Department Care Team [...] 10:15 AM EDT Office Visit [facility] MEDICINE [address] [place] [phone] Name, MD Leland [address] [place] [address] documented as of this encounter Visit Diagnoses Not on filedocumented in this encounter Additional Health Concerns Assessment Noted Time PHQ-9 Depression Total Score: 0 09/14/19 24 3:10 PM EDT documented as of this encounter Care Teams Translator Deaf Relationship Specialty Start Date End Date NameLeland MD [address] [place] [address] PCP - General Family Medicine 08/26/15 documented as of this encounter
--- OUTSIDE RECORDS SUMMARY | 2024-08-31 15:04 | XMS_ITS | Encounter Summary ---
Author Organization [employer] Address [address] [facility] [address] 7t [place] [address] Care Team Providers Care Medical Geneticist Name Role Phone Name, Leland MIMS Primary Care Provider [phone] Reason for Visit * Reason Comments Med Refill Encounter Details Date Type Department Care Team ([facility] st Contact Info) Description 09/23/2023 Refill [facility] [address] [place] [address] Ila Lora MD [address] [place] [address] Social History Tobacco Use Types Packs/Day Years [...] Office Visit [facility] [address] [place] [phone] Name, MD Leland [address] [place] [address] documented as of this encounter Visit Diagnoses Not on filedocumented in this encounter Additional Health Concerns Assessment Noted Time PHQ-9 Depression Total Score: 0 09/14/19 24 3:10 PM EDT documented as of this encounter Care Teams Medical Geneticist Relationship Specialty Start Date End Date NameLeland MD [address] [place] [phone] PCP - General Family Medicine 08/26/15 documented as of this encounter
--- OUTSIDE RECORDS SUMMARY | 2024-08-31 15:04 | XMS_ITS | Encounter Summary ---
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) Leland Brandon MD [address] [place] [address] Phone: tel: fax: [facility] [address] [place] [address] Phone: tel: fax: Referral ID Status Reason Start Date Expiration Date Visits Requested Visits Authorized [id number] Authorized Specialty Services Required 08/30/2024 08/30/2025 1 1 Reason for Visit * Reason Comments hospital follow up Encounter Details Date Type Department Care Team (Late st Contact Info) Description 08/30/2024 10:00 AM EDT Office Visit [facility] [address] [place] [address] Leland Brandon MD [address] [place] [address] Acute deep vein thrombosis (DVT) of [...] a posthospitalization visit. He was hospitalized at [facility] [place]. He presented with worsening left leg pain, [...] of the recent hospitalization is written below: [facility] [place] (08/13/2024 - 08/16/2024) Patient with PMH of [...] the lumbar spine. He was recently [facility] and was referred to a [...] at this point. I recommended [facility] and he agreed. 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 I added tizanidine to his medications. He is recommended to keephis upcoming appointment with neurosurgery for evaluation as recommended at [facility] pain clinic. Other orders - tiZANidine (Zanaflex) 4 MG tablet; Take 1 tablet (4 mg) by mouth every 8 (eight) hours if needed for muscle spasms for up to 20 days. documented in this encounter Plan of Treatment Upcoming Encounters Date Type Department Care Team (Late st Contact Info) Description 09/17/2024 10:15 AM EDT Office Visit [facility] [address] [place] [address] Name, MD Leland [address] [place] [address] Scheduled Referrals Name Type Priority Associated Diagnoses [...] documented as of this encounter Care Teams Magento Web Developer Relationship Specialty Start Date End Date Leland Brandon MD [address] [place] [address] PCP - General Family Medicine 08/26/15 documented as of this encounter
--- OUTSIDE RECORDS SUMMARY | 2024-08-31 15:05 | XMS_ITS | Encounter Summary ---
Author Organization [employer] Address [address] [facility] 7t [place] [address] Care Team Providers Care Sliver Handler Name Role Phone Name, Leland MIMS Primary Care Provider [phone] Reason for Visit * Reason Comments Med Refill Encounter Details Date Type Department Care Team ([facility] Contact Info) Description 10/22/2022 Refill [facility] [address] [place], [place] [phone] Name, MD Leland [address] [place] [address] Insomnia, unspecified type Social History Tobacco Use [...] Upcoming Encounters Date Type Department Care Team ([facility] Contact Info) Description 09/17/2024 10:15 AM EDT Office Visit [facility] [address] [place] [address] Name, MD Leland [address] [place] [address] documented as of this encounter Visit Diagnoses Diagnosis Insomnia, unspecified type documented in this encounter Additional Health Concerns Assessment Noted Time PHQ-9 Depression Total Score: 0 09/07/19 23 1:16 PM EDT documented as of this encounter Care Teams Sliver Handler Relationship Specialty Start Date End Date Name, MD Leland [address] [place] [address] PCP - General Family Medicine 08/26/15 documented as of this encounter
--- OUTSIDE RECORDS SUMMARY | 2024-08-31 15:05 | XMS_ITS | Clinical Summary ---
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 Patient follows at [facility] and has been treated with injections [...] 10:00 AM EDT Office Visit [facility] [address] [place], [place] [phone] Leland Brandon MD Acute deep vein thrombosis (DVT) of left lower extremity, unspecified vein (CMS/HCC) (Primary Dx); Ulcer of left lower leg associated with varicose veins (CMS/HCC); Chronic midline low back pain with sciatica, sciatica laterality unspecified 08/30/[address] [facility] [address] [place] [address] Leland Brandon MD Call Back Request 08/30/2024 Travel 08/27/[address] [facility] [address] [place] [address] Leland Brandon MD Nurse Triage 08/20/2024 3:20 PM EDT Office Visit [facility] [address] [place] [address] Leland Brandon MD Left leg pain (Primary Dx); Presence of IVC filter; Recurrent deep vein thrombosis (CMS/HCC); Cellulitis of left lower extremity; Ulcer of left lower leg associated with varicose veins (CMS/HCC); Venous stasis dermatitis of both lower extremities; Hand eczema 08/17/2024 Patient Outreach [facility] [address] [place] [phone] Leland Brandon MD Transition Of Care (Tcm) (HDF scheduled) 08/17/[address] [address] Leland Brandon MD Hospital Follow-up 08/16/[address] [address] Leland Brandon MD Insomnia, unspecified type 08/07/2024 1:15 PM EST Office Visit [address] [address] Stacey Wade MD Cellulitis of left lower extremity (Primary Dx); Neurogenic claudication due to lumbar spinal stenosis 08/07/2024 Travel 08/06/[address] [address] Leland Brandon MD Nurse Triage 08/01/2024 2:15 PM EST Office Visit [address] [address] Leland Brandon MD Cellulitis, unspecified cellulitis site (Primary Dx); Chronic pain syndrome; Tremor of both hands 07/26/[address] [address] Leland Brandon MD FYI 07/25/[address] [facility] [address] [place] [address] Stacey Wade MD Lumbago with sciatica, right side 07/24/[address] [address] Leland Brandon MD REQUEST ER NOTES; Med Refill (Patient walked in requesting med refill for Dexamethasone 4mg patient stated he went to pharmacy to get medication and theres no medication in the pharmacy ) 07/24/[address] [address] Leland Brandon MD Verbal Order 07/24/[address] [address] Leland Brandon MD Nurse Triage 07/20/2024 Orders Only [facility] [address] [place] [address] Leland Brandon MD Severe low back pain (Primary Dx); Radicular leg pain 07/17/[address] [facility] [address] [place] [address] Leland Brandon MD Insomnia, unspecified type 07/14/2024 12:00 PM EST Office Visit [facility] [address] [place] [address] Leland Brandon MD Severe low back pain (Primary Dx); Neurogenic claudication due to lumbar spinal stenosis 07/14/2024 Travel 07/06/2024 9:00 AM EST Office Visit [facility] [address] [place] [address] Leland Brandon MD Neurogenic claudication due to lumbar spinal stenosis (Primary Dx); Radicular leg pain; Severe low back pain 07/06/2024 Travel 06/25/[address] [facility] [address] [place] [phone] Keila Rojas RN Results 06/22/2024 3:45 PM EST Telemedicine [address] [address] Chrissie Cosme NP Chronic nonintractable headache, unspecified headache type (Primary Dx); Chronic joint pain 06/22/2024 Travel 06/20/[address] [facility] [address] [place] [address] Leland Brandon MD 06/18/2024 Orders Only [facility] [address] [place] [phone] Amber Ortiz MD 06/15/2024 1:40 PM EST Office Visit [facility] [address] [place] [address] Stacey Wade MD Low back pain due to bilateral sciatica (Primary Dx) 06/15/[address] [facility] [address] [place] [phone] Name, MD Leland Insomnia, unspecified type 06/11/[address] [facility] [address] [place] [address] Dave Cabrera MA Chartprep from Last 3 [...] AM EDT Office Visit [facility] [address] [place] [address] Name, MD Leland [address] [place] [address] Health Maintenance Due Date Last Done Comments [...] Free T4 0.69 0.32 - 4.0 uIU/mL [facility] Blood Venous blood specimen / Unknown 08/01/2024 3:05 PM EST 08/01/2024 4:20 PM EST us Leland Name MD LAB BLOOD ORDERABLES Final Resul t [facility] [address] [place] [address] [phone] * MR Lumbar Spine w/o Contrast (07/16/2024 6:25 PM EST) Anatomical Region Laterality Modality Spine, L-spine Magnetic Resonan ce 07/16/2024 6:25 PM EST Narrative 07/17/2024 7:57 AM EST ? [facility] ?[address] ?[place] [address] ? Magnetic Resonance Report ? Signed ? Patient: Steven Novak ?MR#: M ?? [id number] ? : 1965 ?Acct:[id number] ? Age/Sex: 59 / M ?ADM Date: 07/16/24 ? Loc: HO.MRI ? Attending Dr: Leland Brandon MD ? Ordering Physician: Leland Brandon MD ?? Date of Service: 07/16/24 ?? Procedure(s): MR lumbar spine wo con ?? Accession Number(s): [id number] ? cc: Leland Brandon MD ? EXAMINATION: [...] ? DD/ 24 ? TD/TT: 07/16/245 ? Tank Setter Helper: ? Procedure Note Donotuseinterpreter, Image - 07/17/[address] [address] Magnetic Resonance Report Signed Patient: Baron NovakR#: Marie [id number] : 1965Acct:[id number] Age/Sex: 59 / MADM Date: 07/16/24 Loc: HO.MRI Attending Dr: Leland Brandon MD Ordering Physician: Leland Brandon MD Date of Service: 07/16/24 Procedure(s): MR lumbar spine wo con Accession Number(s): [id number] cc: Leland Brandon MD EXAMINATION: MR LUMBAR [...] 07/17/24 0755 DD/ 1825 TD/TT: 07/16/24 1855 Tank Setter Helper: us Leland HUNG MRI PROCEDURES Edited Result - Final * XR Sacrum Coccyx 2+ Views (06/19/2024 8:32 AM EST) Anatomical Region Laterality Modality Sacrum, Coccyx Radiographic Rasheeda ging 06/19/2024 8:32 AM EST Narrative 06/19/2024 8:34 AM EST ? [facility] ?[address] ?[place] [address] ?XRay Report ? Signed ? Patient: Moris Francisco,Steven ?MR#: M ?? [id number] ? : 1965 ?Acct:[id number] ? Age/Sex: 59 / M ?ADM Date: 01/06/25 ? Loc: HO.XRAY ? Attending Dr: Amber Ortiz MD ? Ordering Physician: Amber Ortiz MD ?? Date of Service: 06/18/24 ?? Procedure(s): XR sacrum coccyx min 2V ?? Accession Number(s): [id number] ? cc: Amber Ortiz MD; Name,Leland MIMS [...] ? DD/ 1 ? TD/TT: 06/19/24831 ? Tank Setter Helper: ? Procedure Note Mery Saeed - 06/19/2024 [place] [address] XRay Report Signed Patient: Michele Novak#: M [id number] : 1965Acct:[id number] Age/Sex: 59 / MADM Date: 06/18/24 Loc: HO.MAEGAN Attending Dr: Amber Ortiz MD Ordering Physician: Amber Ortiz MD Date of Service: 06/18/24 Procedure(s): XR sacrum coccyx min 2V Accession Number(s): [id number] cc: Amber Ortiz MD; Name,Leland MIMS CLINICAL [...] in OV> 06/19/24832 DD/ 1 TD/TT: 06/19/24831 Tank Setter Helper: us Amber Ortiz MD IMG XR PROCEDURES Edited Result - Final * XR Hips Bilateral 3 or 4 Views with or without Pelvis (06/19/2024 8:31 AM EST) Anatomical Region Laterality Modality Lower Extremities, Hip Bilateral Radiograp hic Imaging 06/19/2024 8:31 AM EST Narrative 06/19/2024 8:32 AM EST ? [facility] ?[address] ?[place] [address] ?XRay Report ? Signed ? Patient: Moris SinghSteven ?MR#: M ?? [id number] ? : 1965 ?Acct:[id number] ? Age/Sex: 59 / M ?ADM Date: 06/18/24 ? Loc: HO.XRAY ? Attending Dr: Amber Ortiz MD ? Ordering Physician: Amber Ortiz MD ?? Date of Service: 06/18/24 ?? Procedure(s): XR hip RAINE min 3V w/wo pel ?? Accession Number(s): [id number] ? cc: Amber Ortiz MD; Roma,Leland MIMS [...] DD/ 0831 ? TD/TT: 06/19/24 0831 ? Tank Setter Helper: ? Procedure Note Donotuseinterpreter, Image - 06/19/2024 [place] [address] XRay Report Signed Patient: Michele Novak#: M [id number] : 1965Acct:[id number] Age/Sex: 59 / MADM Date: 06/18/24 Loc: VANESSA.MAEGAN Attending Dr: Amber Ortiz MD Ordering Physician: Amber Ortiz MD Date of Service: 06/18/24 Procedure(s): XR hip RAINE min 3V w/wo pel Accession Number(s): [id number] cc: Amber Ortiz MD; Name,Leland MIMS CLINICAL [...] in OV> 06/19/24831 DD/ 0 TD/TT: 06/19/24830 Tank Setter Helper: Amber Ortiz MD IMG XR PROCEDURES Edited Result - Final * XR Lumbar Spine 2-3 Views (06/18/2024 4:40 PM EST) Anatomical Region Laterality Modality Spine, L-spine Radiographic Rasheeda ging 06/18/2024 4:40 PM EST Narrative 06/18/2024 4:41 PM EST ? [facility] ?[address] ?[place] [address] ?XRay Report ? Signed ? Patient: Moris Francisco,Steven ?MR#: M ?? [id number] ? : 1965 ?Acct:[id number] ? Age/Sex: 59 / M ?ADM Date: 06/18/24 ? Loc: HO.XRAY ? Attending Dr: Amber Ortiz MD ? Ordering Physician: Stacey Wade MD ?? Date of Service: 06/18/24 ?? Procedure(s): XR lumbar spine 2-3V ?? Accession Number(s): [id number] ? cc: Stacey Wade MD; Name,Leland MIMS [...] MD ? Signed By: ?<Electronically signed by Blnaquita Cantor MD in OV> ? 06/18/24 1640 ? DD/ 1640 ? TD/TT: 06/18/24 1640 ? Tank Setter Helper: ? Procedure Note Darlin, Image - 06/18/[address] [address] XRay Report Signed Patient: Michele Novak#: M [id number] : 1965Acct:[id number] Age/Sex: 59 / MADM Date: 06/18/24 Loc: ROLLY Attending Dr: Amber Ortiz MD Ordering Physician: Stacey Wade MD Date of Service: 06/18/24 Procedure(s): XR lumbar spine 2-3V Accession Number(s): [id number] cc: Stacey Wade MD; Name,Leland MIMS CLINICAL [...] 06/18/24 1640 DD/ 1640 TD/TT: 06/18/24 1640 Tank Setter Helper: us Stacey Maldonado MD IMG XR PROCEDURES Fin al Result * Hepatitis C Antibody with Reflex to HCV, RNA, Quantitative, Real-Time PCR (10/14/2023 11:05 AM EDT) Hepatitis C Antibody Nonreactive Nonreactive [facility] Comment:Antibodies to HCV no t detected; does not exclude early acuteHCV infection. Blood Venous blood specimen / Unknown 10/14/2023 11:05 AM EDT 10/14/2023 1:15 PM EDT us Leland Brandon MD LAB BLOOD ORDERABLES Final Resul t [facility] [address] [place] [phone] * HIV-1/2 Antigen and Antibodies, Fourth Generation, with Reflexes (10/14/2023 11:05 AM EDT) HIV AB/AG Nonreactive Nonreactive [facility] Comment:HIV-1 p24 Ag and/or HIV-1/HIV-2 Ab not detected.A test result that is nonreactive does not exclude thepossibility of exposure to or infection with HIV-1 and/orHIV-2. Nonreactive results in this assay for individualswith prior exposure to HIV-1 and/or HIV-2 may be due toantigen and antibody levels that are below the limit ofdetection of this assay.The [facility] HIV Ag/Ab Combo assay result andsupplemental assay results should be interpreted inconjunction with the patient's clinical presentation,history and other laboratory results. If the results areinconsistent with clinical evidence, additional testing issuggested to confirm the result. Blood Venous blood specimen / Unknown 10/14/2023 11:05 AM EDT 10/14/2023 1:15 PM EDT us Leland Brandon MD LAB BLOOD ORDERABLES Final Resul t Performing Organization Address [facility] Co de Phone Number [facility] [address] [place] [address] [phone] * (ABNORMAL) Lipid Panel, Standard (10/14/2023 11:05 AM EDT) Triglycerides 105 <150 mg/dL [facility] Comment:Desirable Triglyceri de: less than 150 mg/dLBorderline High Triglyceride 150-199 mg/dLHigh Triglyceride: 200-499 mg/dLVery High Triglyceride: greater than or equal to 5OO mg/dL Cholesterol 192 <200 mg/dL [facility] Comment:Desirable Cholestero l: less than 200 mg/dLBorderline High Cholesterol: 200-239 mg/dLHigh Cholesterol: greater than 239 mg/dL LDL Cholesterol Calculated 102(H) <100 mg/dL [facility] Comment:Desirable LDL: less than 100 mg/dLNear Optimal/Above Optimal LDL: 110- 129 mg/dLBorderline High LDL: 130-159 mg/dLHigh LDL: 160-189 mg/dLVery High LDL: greater than or equal to 190 mg/dL HDL Cholesterol 69 >40 mg/dL [facility] Comment:Desirable HDL: great er than 40 mg/dL Note: This HDL assay may give artificially low results in patients with liver disease. Blood Venous blood specimen / Unknown 10/14/2023 11:05 AM EDT 10/14/2023 1:15 PM EDT us Leland Brandon MD LAB BLOOD ORDERABLES Final Resul t Performing Organization Address City/[facility]/ZIP Co de Phone Number [facility] [address] [place] [phone] [phone] * Hm Colonoscopy (07/14/2023) Colonoscopy Normal Normal Comment:Normal Colonoscopy r epeat 10 years Leland Brandon MD HEALTH MAINTENANCE Final Result from Last 3 Months or Most Recently Relevant to Health Maintenance [place] [address] [place] [address] - [employer] Care Teams Conservation Science Officer Relationship Specialty Start Date End Date Name, MD [place] [address] [place] [phone] PCP - General Family Medicine 08/26/15
--- OUTSIDE RECORDS SUMMARY | 2024-08-31 15:05 | XMS_ITS | Clinical Summary ---
Author Organization [facility] Address [address] [place] [address] Care Team Providers Care Yarn Washer Name Role Phone No, Pcp Primary Care [...] patient's age to complete this topic Insurance [facility] Care Teams Yarn Washer Relationship Specialty Start Date End Date No, Pcp HIREN PCP - General 01/29/22
--- OUTSIDE RECORDS SUMMARY | 2024-08-31 15:05 | XMS_ITS | Encounter Summary ---
Author Organization [employer] Address [address] [facility] 7t [place] [address] Care Team Providers Care Quantitative Analyst Name Role Phone Name, Leland MIMS Primary Care Provider [phone] Reason for Visit * Reason Onset Date Comments Med Refill 05/25/2024 Encounter Details Date Type Department Care Team ([facility] st Contact Info) Description 05/25/2024 Telephone [facility] [address] [place], [place] [phone] Name, MD Leland [address] [place] [address] Med Refill Social History Tobacco Use Types [...] 4 MG tablet To be sent to: [facility] documented in this encounter Plan of Treatment Upcoming Encounters Date Type Department Care Team (Late st Contact Info) Description 09/17/2024 10:15 AM EDT Office Visit [facility] [address] [place] [address] [phone] Name, MD Leland [address] [place] [address] documented as of this encounter Visit Diagnoses Not on filedocumented in this encounter Additional Health Concerns Assessment Noted Time PHQ-9 Depression Total Score: 0 09/14/19 24 3:10 PM EDT documented as of this encounter Care Teams Quantitative Analyst Relationship Specialty Start Date End Date Name, MD Leland [address] [place] [address] PCP - General Family Medicine 08/26/15 documented as of this encounter
--- OUTSIDE RECORDS SUMMARY | 2024-08-31 15:05 | XMS_ITS | Referral Summary ---
Author Organization [facility] Address [address] [place] [address] Care Team Providers Care News Clipping Cutter Name Role Phone No, Pcp Primary Care [...] Treatment Not on file Insurance Care Teams News Clipping Cutter Relationship Specialty Start Date End Date No, Pcp HIREN PCP - General 01/29/22
== END 2024-08-31 14:03 | disposition home or self-care (01) ==
PROVIDERS: PCP Internal Medicine Geriatric Medicine; Referring Provider Internal Medicine Geriatric Medicine; Visit Provider Physician Assistant
DX: M48.062 Spinal stenosis, lumbar region with neurogenic claudication (principal)
CPT/HCPCS: 99204

== ENCOUNTER → 2024-08-31 14:06 | Outpatient (BNV) | payer OTHER, SELFPAY | PROVIDERS: PCP Internal Medicine Geriatric Medicine; Referring Provider Internal Medicine Geriatric Medicine; Visit Provider Radiology Diagnostic Radiology | DX: M51.369 Other intervertebral disc degeneration, lumbar region without mention of lumbar back pain or lower extremity pain (principal) | CPT/HCPCS: 72110 ==

== ENCOUNTER 2024-10-04 14:26 | Outpatient (AMB) | payer OTHER, SELFPAY ==
--- NOTE | 2024-10-04 14:55 | MHC.OFFVIS ---
Intake Visit Reasons: Leg check/wound Intake Note: Patient presents for leg check. Patient has venaseal in June of 2024, a stitch was placed after venaseal procedure in left leg. He states his incision never fully closed and has been getting larger since. His leg felt warm , incision site was open. No drainage. Accompanied by: Self / Same As Patient Allergies No Known Allergies Allergy (Verified 10/04/24 14:56) HPI HPI Leg check/wound: Details: Steven is presenting today for concerns of a nonhealing ulcer, at the site of the Venaseal procedure, which occurred on 06/29/24. We utilized Amina as an customer assistant. He did present to his follow up appt on 07/12 where he noted that he had 2 new ulcerations, one on the right pretibial area and one on the left lateral calf. He states that the one on the right leg has scabbed over. He states the one on the left lateral calf had a suture in it and after it got removed on 07/12, he thought the incision would close up, but it hasn't. He states that he has not been able to come in for a recheck due to transportation issues and other medical conditions. He states he has not been doing anything for the open wound. He states he did finish the Keflex when it was prescribed to him after the procedure. He states the site is swollen, discolored, and painful. He denies any fever, chills, or body aches. [facility] Medical History COPD (chronic obstructive pulmonary disease) Dyspnea Nocturnal hypoxia Hyperlipidemia History of recurrent deep vein thrombosis (DVT) Chronic back pain Methadone maintenance therapy patient REAGAN (obstructive sleep apnea) Personal history of nicotine dependence Thrombosed external hemorrhoid Morbid obesity Hypertension Chronic pulmonary embolism Current use of anticoagulant therapy Surgical History Hx of colonoscopy History of excision of mass Family History Father History of prostate cancer Social History Household Members: Friend(s) Alcohol intake: former Year quit: 2023 Patient Tobacco Use Status: Former Tobacco user Tobacco use type: Cigarette Years Smoked: onset 14, 1/2-1ppd x 42yrs, 30pyh Current occupational status: disabled Review of Systems Const Reports as per HPI and Denies weakness ENT Reports Normal hearing present and Denies dizziness Card Reports as per HPI, Denies chest pain, Denies chest pain at rest, Denies chest pain with activity, Denies dyspnea and Denies dyspnea on exertion Resp Reports as per HPI, Denies cough, Denies dyspnea and Denies dyspnea on exertion GI Reports as per HPI, Denies abdominal pain, Denies nausea and Denies vomiting Musc Denies numbness Skin/Breast Reports as per HPI, Denies erythema and Denies wounds Neuro Reports Normal hearing present, Denies dizziness, Denies numbness, Denies Sensory deficit (Neuro) and Denies weakness Psych Reports no additional complaints Endo Reports no additional complaints Physical Exam Const General: healthy appearing and no acute distress Orientation/consciousness: patient oriented x3 HEENT Head: Yes normal to inspection Ears: hearing grossly normal bilaterally Mouth: Normal oral and palatal mucosa present Resp Effort & Inspection: normal respiratory effort and able to speak in complete sentences Auscultation: clear to auscultation bilaterally Cardio Jugular venous distension: no JVD Rate: regular rate Rhythm: regular rhythm Heart sounds: S1 normal heart sound present and S2 normal heart sound present Bruits: no abdominal aortic bruits, no carotid bruits, no femoral bruits and no renal bruits Peripheral pulses: Peripheral pulses 2+ throughout GI Inspection: Yes normal to inspection Palpation (GI): No Abdominal aortic bruit present Skin General skin exam: no rashes or lesions noted Wounds: no wounds Hair: normal Neuro General: patient oriented x3 Cranial nerves: Yes Normal hearing present Cognition (Neuro): normal cognition Gait exam (Neuro): Normal gait present Motor exam (neuro): 5/5 motor strength present throughout Sensory Exam: No Sensory deficit (Neuro) Extrem Other: Left lateral calf wound: measuring 2cmx1.5cmx0.15cm. Wound bed is pink with some yellow slough noted around the edges. No drainage or bleeding noted. Wound edges rolled. Erythema noted around the wound. Left lower extremity: +1 nonpitting edema noted. Warmth noted throughout the lower extremity. Erythematous and violaceous discoloration noted from the pretibial area to the ankles. Right pretibial wound: scabbed over. Right lower extremity: Erythematous and violaceous discoloration noted from the pretibial area to the ankles. +1 nonpitting edema noted. General: Yes normal to inspection, Yes full ROM, Yes capillary refill normal and Yes normal gait Assessment & Plan Assessment & Plan (1) Cellulitis: Code(s): L03.90 - Cellulitis, unspecified Category: Medical Qualifiers: Site of cellulitis: extremity Site of cellulitis of extremity: lower extremity Laterality: left Qualified Code(s): L03.116 - Cellulitis of left lower limb Plan Steven is presenting today with concerns of a nonhealing ulcer on the left lateral calf. He states the site has been getting worse since having the suture removed s/p left SSV RFA on 06/29/24. He had the suture removed on 07/12 and was placed on Keflex bid for 10d, which the pt states he finished. He states his leg is more swollen, red, and painful. He has not been putting anything on the wound, just a bandaid. He states there is no draining or bleeding from it. There appears to be cellulitis surrounding the wound. We will place him back on Keflex, bid, for 10d; I discussed with the pt that he can do it 4/day for 5d but he states he will not likely be able to remember to take it that many times a day. We have placed a foam dressing, kerlix, and wrapped with an Alex bandage. We discussed that he can change the foam dressing every 3-4d if there is no drainage/bleeding. We will have him follow up in 2w. We discussed that if this wound worsens, he has a fever/chills, or any worsening symptoms, that he should go to the ER. We discussed the importance of taking the full course of abx. We will have him follow up in 2w. If there are any questions or concerns, please do not hesitate to reach out to us. Medications: Refilled cephalexin 500 mg PO Q12H 20 caps 0RF cellulitis Coding Level of Care Code Est Pt Level 4 (64512) Diagnoses Cellulitis of left lower extremity L03.116 Site of cellulitis: extremity Site of cellulitis of extremity: lower extremity Laterality: left
--- OUTSIDE RECORDS SUMMARY | 2024-10-04 17:00 | XMS_ITS ---
Author Organization [facility] Address [address] [place] [address] Care Team Providers Care Internal Communications Manager Name Role Phone Name Leland MIMS Primary Care Provider Unavailabl e Alex Smihtmie Unavailable [phone] Nalini Dyer Unavailable [phone] Encounters Encounter Location Date Provider Diagnosis [address] [id number] 08/02/2024 Nalini Dyer Plan Of Treatment Next Appt Details Provider Name:Nalini addison, 11/15/2024 02:30:00 PM, [address] [place] [address], [phone], Progress Notes * Jaren MCLAUGHLINsDOB: 3 (59 yo M)Acc No.[id number]:08/02/2024 Progress Note Patient:?Steven MCLAUGHLIN Provider:?Nalini Dyer DPM :1965???Age:59 Y???Sex:Male Jose e:08/02/2024 Address:[address] [place], [place] [id number] Pcp:Leland Brandon MD Subjective: * Chief Complaints: [...] Dyer DPM Date:? Generated for Luisa john/Alexandrea/Clayton on:?10/04/2024 05:00 PM EDT
--- OUTSIDE RECORDS SUMMARY | 2024-10-04 17:00 | XMS_ITS | Encounter Summary ---
Author Organization [employer] Address [address] [facility] 7t [place] [address] Care Team Providers Care News Library Director Name Role Phone Name, Leland MIMS Primary Care Provider [phone] Reason for Visit * Reason Comments Med Refill Encounter Details Date Type Department Care Team ([facility] st Contact Info) Description 06/20/2023 Refill [facility] MEDICINE [address] [place], [place] [phone] Name, MD Leland [address] [place] [address] Insomnia, unspecified type Social History Tobacco Use [...] Care Team (Late st Contact Info) Description 11/16/2024 9:00 AM EDT Office Visit [facility] MEDICINE [address] [place] [phone] NameLeland MD [address] [place] [phone] documented as of this encounter Visit Diagnoses Diagnosis Insomnia, unspecified type documented in this encounter Additional Health Concerns Assessment Noted Time PHQ-9 Depression Total Score: 0 09/07/19 23 1:16 PM EDT documented as of this encounter Care Teams News Library Director Relationship Specialty Start Date End Date Name, MD Leland [address] [place] [address] PCP - General Family Medicine 08/26/15 documented as of this encounter
--- OUTSIDE RECORDS SUMMARY | 2024-10-04 17:00 | XMS_ITS | Encounter Summary ---
Author Organization [employer] Address [address] [facility] [address] 7t [place] [address] Care Team Providers Care Ssrs Report Developer Name Role Phone Name, Leland MIMS Primary Care Provider [phone] Encounter Details Date Type Department Care Team ([facility] st Contact Info) Description 03/24/2023 Telephone [facility] MEDICINE [address] [place], [place] [phone] Name, MD Leland [address] [place], [place] [phone] Social History Tobacco Use Types Packs/Day Years [...] advise PCP pt is currently admitted to [facility] and was found with blood clots to both legs. Any questions, contact pt at [phone] documented in this encounter Plan of Treatment Upcoming Encounters Date Type Department Care Team (Late st Contact Info) Description 11/16/2024 9:00 AM EDT Office Visit [facility] MEDICINE [address] [place] [phone] Name, MD Leland [address] [place] [address] documented as of this encounter Visit Diagnoses Not on filedocumented in this encounter Additional Health Concerns Assessment Noted Time PHQ-9 Depression Total Score: 0 09/07/19 23 1:16 PM EDT documented as of this encounter Care Teams Ssrs Report Developer Relationship Specialty Start Date End Date Name, MD Leland [address] [place] [address] PCP - General Family Medicine 08/26/15 documented as of this encounter
--- OUTSIDE RECORDS SUMMARY | 2024-10-04 17:00 | XMS_ITS | Encounter Summary ---
Author Organization [employer] Address [address] [facility] 7t [place] [address] Care Team Providers Care Diabetes Education Coordinator Name Role Phone Name, Leland MIMS Primary Care Provider [phone] Encounter Details Date Type Department Care Team ([facility] Contact Info) Description 11/22/2022 Abstract [facility] MEDICINE [address] [place] [address] [phone] Name, MD Leland [address] [place] [address] [phone] Social History Tobacco Use Types Packs/Day Years [...] Upcoming Encounters Date Type Department Care Team ([facility] Contact Info) Description 11/16/2024 9:00 AM EDT Office Visit [facility] MEDICINE [address] [place] [address], [place] [address] Name, MD Leland [address] [place] [address] documented as of this encounter Visit Diagnoses Not on filedocumented in this encounter Additional Health Concerns Assessment Noted Time PHQ-9 Depression Total Score: 0 09/07/19 23 1:16 PM EDT documented as of this encounter Care Teams Diabetes Education Coordinator Relationship Specialty Start Date End Date Name, MD Leland [address] [place] [phone] PCP - General Family Medicine 08/26/15 documented as of this encounter
--- OUTSIDE RECORDS SUMMARY | 2024-10-04 17:00 | XMS_ITS | Encounter Summary ---
Author Organization [employer] Address [address] [facility] 7t [place] [address] Care Team Providers Care Game Technician Name Role Phone Name, Leland MIMS Primary Care Provider [phone] Reason for Visit * Reason Onset Date Comments Nurse Triage 08/06/2024 Encounter Details Date Type Department Care Team ([facility] st Contact Info) Description 08/06/2024 Telephone [facility] MEDICINE [address] [place] [address] Name, MD Leland [address] [place] [address] Nurse Triage Social History Tobacco Use Types [...] 08/06/2024 3:03 PM EST Triage call with [facility] resident in diagnostic radiology [place] [id number] Pt is called several times and call [...] Description 11/16/2024 9:00 AM EDT Office Visit [facility] MEDICINE [address] [place] [phone] Name, MD Leland [address] [place] [address] documented as of this encounter Visit Diagnoses Diagnosis Osteoarthritis of right ankle and foot Swelling of lower limb documented in this encounter Additional Health Concerns Assessment Noted Time PHQ-9 Depression Total Score: 0 09/14/19 24 3:10 PM EDT documented as of this encounter Care Teams Game Technician Relationship Specialty Start Date End Date Name, MD Leland [address] [place] [phone] PCP - General Family Medicine 08/26/15 documented as of this encounter
--- OUTSIDE RECORDS SUMMARY | 2024-10-04 17:00 | XMS_ITS | Encounter Summary ---
Author Organization [employer] Address [address] [facility] 7t [place] [address] Care Team Providers Care Clinical Practice Consultant Name Role Phone Name, Leland MIMS Primary Care Provider [phone] Reason for Visit * Reason Comments Med Refill Encounter Details Date Type Department Care Team ([facility] Contact Info) Description 02/21/2023 Refill [facility] MEDICINE [address] [place] [address] [phone] NameLeland MD [address] [place] [address] [phone] Insomnia, unspecified type Social History Tobacco Use [...] Upcoming Encounters Date Type Department Care Team ([facility] Contact Info) Description 11/16/2024 9:00 AM EDT Office Visit [facility] MEDICINE [address] [place] [address] [phone] Name, MD Leland [address] [place] [address] [phone] documented as of this encounter Visit Diagnoses Diagnosis Insomnia, unspecified type documented in this encounter Additional Health Concerns Assessment Noted Time PHQ-9 Depression Total Score: 0 09/07/19 23 1:16 PM EDT documented as of this encounter Care Teams Clinical Practice Consultant Relationship Specialty Start Date End Date Name, MD Leland [address] [place] [address] PCP - General Family Medicine 08/26/15 documented as of this encounter
--- OUTSIDE RECORDS SUMMARY | 2024-10-04 17:00 | XMS_ITS | Encounter Summary ---
Author Organization [employer] Address [address] [facility] [address] 7t [place] [address] Care Team Providers Care Synoptic Meteorologist Name Role Phone Name, Leland MIMS Primary Care Provider [phone] Encounter Details Date Type Department Care Team (Late st Contact Info) Description 07/19/2023 Abstract [facility] MEDICINE [address] [place] [address] Name, MD Leland [address] [place], [place] [phone] Social History Tobacco Use Types Packs/Day Years [...] 11/16/2024 9:00 AM EDT Office Visit [facility] MEDICINE [address] [place], [place] [phone] Name, MD Leland [address] [place] [address] documented as of this encounter Procedures Procedure [...] documented as of this encounter Care Teams Synoptic Meteorologist Relationship Specialty Start Date End Date Name, MD Leland [address] [place] [phone] PCP - General Family Medicine 08/26/15 documented as of this encounter
--- OUTSIDE RECORDS SUMMARY | 2024-10-04 17:00 | XMS_ITS | Encounter Summary ---
Author Organization [employer] Address [address] [facility] 7t [place] [address] Care Team Providers Care Meat Carrier Name Role Phone Name, Leland MIMS Primary Care Provider [phone] Reason for Visit * Reason Onset Date Comments Hospital Follow-up 08/17/2024 Encounter Details Date Type Department Care Team ([facility] st Contact Info) Description 08/17/2024 Telephone [facility] MEDICINE [address] [place] [address] Name, MD Leland [address] [place] [address] Hospital Follow-up Social History Tobacco Use Types [...] from pt requesting a HDF appt. Hospital: [facility] Date of admission: 08/12/24 Discharge date: 08/16/24 Diagnosed: blood clot in left leg documented in this encounter Plan of Treatment Upcoming Encounters Date Type Department Care Team (Late st Contact Info) Description 11/16/2024 9:00 AM EDT Office Visit [facility] MEDICINE [address] [place] [address] Name, MD Leland [address] [place] [address] documented as of this encounter Visit Diagnoses Not on filedocumented in this encounter Additional Health Concerns Assessment Noted Time PHQ-9 Depression Total Score: 0 09/14/19 24 3:10 PM EDT documented as of this encounter Care Teams Meat Carrier Relationship Specialty Start Date End Date NameLeland MD [address] [place] [address] PCP - General Family Medicine 08/26/15 documented as of this encounter
--- OUTSIDE RECORDS SUMMARY | 2024-10-04 17:01 | XMS_ITS | Encounter Summary ---
Author Organization [employer] Address [address] [facility] 7t [place] [address] Care Team Providers Care Dipper Machine Operator Name Role Phone Name, Leland MIMS Primary Care Provider [phone] Reason for Visit * Reason Comments Med Refill Encounter Details Date Type Department Care Team ([facility] Contact Info) Description 10/22/2022 Refill [facility] MEDICINE [address] [place], [place] [phone] Name, MD Leland [address] [place] [address] Insomnia, unspecified type Social History Tobacco Use [...] Department Care Team ([facility] Contact Info) Description 11/16/2024 9:00 AM EDT Office Visit [facility] MEDICINE [address] [place] [address] Name, MD Leland [address] [place] [address] documented as of this encounter Visit Diagnoses Diagnosis Insomnia, unspecified type documented in this encounter Additional Health Concerns Assessment Noted Time PHQ-9 Depression Total Score: 0 09/07/19 23 1:16 PM EDT documented as of this encounter Care Teams Dipper Machine Operator Relationship Specialty Start Date End Date Name, MD Leland [address] [place] [address] PCP - General Family Medicine 08/26/15 documented as of this encounter
--- OUTSIDE RECORDS SUMMARY | 2024-10-04 17:01 | XMS_ITS | Encounter Summary ---
Author Organization [employer] Address [address] [facility] 7t [place] [address] Care Team Providers Care Wire Web Worker Name Role Phone Name, Leland MIMS Primary Care Provider [phone] Reason for Visit * Reason Onset Date Comments Referral 07/20/2022 Encounter Details Date Type Department Care Team ([facility] st Contact Info) Description 07/20/2022 Telephone [facility] MEDICINE [address] [place], [place] [phone] Name, MD Leland [address] [place] [address] Referral Social History Tobacco Use Types Packs/Day [...] Podiatry for new or existing referrals for [facility], [address], [place] [address], Phone #: , Reason for referral is Chronic Severe pain left foot. Marva advised pt has an X-ray done and patient does have the symptom of Chronic pain. Advised Marva with [facility] will forward to team nurse for new referral and electronic publications specialist for existing referral. Please call Marva at [phone] documented in this encounter Plan of Treatment Upcoming Encounters Date Type Department Care Team (Late st Contact Info) Description 11/16/2024 9:00 AM EDT Office Visit [facility] MEDICINE [address] [place] [phone] Name, MD Leland [address] [place] [phone] documented as of this encounter Visit Diagnoses Not on filedocumented in this encounter Care Teams Wire Web Worker Relationship Specialty Start Date End Date Name, MD Leland [address] [place] [address] PCP - General Family Medicine 08/26/15 documented as of this encounter
--- OUTSIDE RECORDS SUMMARY | 2024-10-04 17:01 | XMS_ITS ---
[facility] Address [address] [place] [address] Care Team Providers Care Director Of Provider Relations Name Role Phone Name Leland [facility] Primary Care Provider Unavailabl e Black, Yaquelin Unavailable [phone] PericaLucioen Unavailable [phone] Allergies No Known Allergies REASON FOR VISIT Painful nail(s) aggravated by shoes causing difficulty standing/walking, Wart(s) Medications Medication SIG (Take, Route, Frequency, Duration) Notes Start Date End Date Status Naproxen 500 MG 1 tablet Orally WITH FOOD Twice a day for 14 days 01/28/2023 Not-Taki ng Medrol juan j 4mg as directed orally a s directed for 6 days 05/20/2022 Not-Taking Acetaminophen 500 MG 1 tablet as needed Orally every 6 hrs for 14 days 01/28/2023 Not-Taki ng Piroxicam 20 MG TAKE 1 CAPSULE BY [facility] EVERY DAY WITH FOOD FOR 30 DAYS for 30 Not-Taking Eliquis 5 MG as directed Orally Not-Taking Ciclopirox 0.77 % 1 application Wig Stylist ally Twice a day for 30 days 07/15/2022 Not-Taki ng [employer]otics as directed 11/03/2021 Active Lisinopril 5 MG 1 tablet Orally Once a day for 30 day(s) Active Pradaxa 150 MG 1 capsule Orally Twi ce a day Not-Taking Ammonium Lactate 12 % 1 application Exte rnally Twice a day for 30 days Not-Taki ng Gabapentin 800 MG 1 tablet Orally Once a day for 30 day(s) Active Social History Tobacco Use: Social History Observation [...] Interpretation Negative Vital Signs Height 6ft in 09/06/2024 Weight 289 lbs 09/06/2024 BMI 39.19 kg/m2 09/06/2024 Blood pressure systolic 130 mm Hg 09/07/19 25 Blood pressure diastolic 80 mm Hg 025 Encounters Encounter Location Date Provider Diagnosis [facility] [address] [place] [address] 09/06/2024 Nalini Manisha Pain in right toe(s) M79.674 ; Onychomycosis B35.1 ; Pain in left toe(s) M79.675 ; Plantar wart B07.0 and Left foot pain M79.672 Assessments Encounter Date Diagnosis (ICD Code) Assessment Notes Treatment Notes Treatment Clinical Notes Section Notes 09/06/2024 Pain in right toe(s) (ICD-10 - M79.674) 09/06/2024 Onychomycosis (ICD-10 - B35.1) 09/06/2024 Pain in left toe(s) (ICD-10 - M79.675) 09/06/2024 Plantar wart (ICD-10 - B07.0) 09/06/2024 Left foot pain (ICD-10 - M79.672) Plan Of Treatment Next Appt Details Follow Up: 2 Months, Reason: Provider Name:Nalinilucrecia addison, 11/15/2024 02:30:00 PM, [address] [facility], [place], [address], Procedure Notes * Category Sub-Category Detail Notes Wart Treatment Procedure Verruca, as desc ribed in exam, were debrided to pin-point bleeding margins with sterile 15 surgical blade, silver nitrate chemocautery applied, recomm. immune-boosting meds such as zinc, recomm. follow up with topical chemosurgical agents, Pt defers any other forms of tx - 78906 Debride Nail 6-10 Nail debridement Due to the cl inical pathology outlined in the exam findings, performance of this nail treatment is medically necessary as its management by an unskilled/untrained nonprofessional would put this patients foot and overall health at risk. Therefore, debridement to affected nail(s), as described in exam ( TA, T1, T2, T3, T4, T5, T6, T7, T8, T9, ), was performed exclusively by the physician of record to reduce/remove overall nail length, girth, thickness, subungual debris, and necrotic tissue, by manual and/or electrical means through the use of a nail nipper and/or dremel-type carbide grinder, to a more viable healthy nail plate or bed tissue 6-10 nails in total. Silver nitrate was used for any petechial bleeding as necessary. Definitive antifungal treatment options, both pharmaceutical and surgical, have been reviewed and discussed with the patient. The patient solely prefers the use of intermittent/as needed professional debridement services for their nail condition and understands the need for additional periodic treatments to maintain effectiveness in symptomatic relief - 92434 Progress Notes * Rajeev MCLAUGHLINOB: 3 (59 yo M)Acc No.[id number]:09/06/2024 Progress Note Patient:?Steven MCLAUGHLIN Provider:?Nalini Dyer DPM :1965???Age:59 Y???Sex:Male Jose e:09/06/2024 Address:[address] [place] [address] Pcp:Leland Brandon MD Subjective: * Chief Complaints: * ???Painful nail(s) aggravate d by shoes causing difficulty standing/walkingWart(s) * HPI: ???Painful Nails:?Pt States Last PCP Visit:?Date:?08/17/2024 ???Skin problems:?Pt States PCP Visit: ?DATE?08/17/2024 * ROS:?General/Constitutional:?Nausea?denies, .?Vomiting?denies.?Hunger Thirst?denies.?Loss appetite?denies.?Chills?denies.?Fatigue?denies.?Fever?denies.?Night Sweats?denies.?Unexplained weight [...] stic Procedure:?[facility]- blood clot leg issue, cyst blood clot 09/04 * Family History:?Mother: dece ased.?Father: , arthritis, [...] 6ft, Wt:289, BMI :39.19, Shoe size: 13, BP:130/80mm Hg, Ht-cm: 182.88 cm, Wt-k.09 kg. * Examination: ???Nails: ?NAILS are:?Elongated, overgrown, dystrophic, lytic, greater than 3mm thick, discolored and friable with crumbly malodorous subungual debris, with pain on palpation, TA, T1, T2, T3, T4, T5, T6, T7, T8, T9.?Dermatologic: ?SKIN FINDINGS:?Skin exam reveals Keratotic lesion(s) located at , TA , T2 , T3 , T5 , T6 , SUB MTH (s) , 1 , Heel(s), B/L.?VERRUCA:?Reveals a Single , multi-loculated , mosaic-patterned, round, raised, flat-topped, petechial bleeding papule(s), with cauliflower appearance and interruption of skin lines, pain to lateral compression, and size estimated at 3plantar Forefoot, mm diameter, LEFT.? Assessment: * Assessment: 1.?Pain in right toe(s) - M7 9.674???2.?Pain in left toe(s) - M79.675???3.?Onychomycosis - B35.1 (Primary)???4.?Plantar wart - B07.0???5.?Left foot pain - M79.672??? Plan: * Treatment: * Procedures:?Debride Nail 6-10:?Nail debridement?Due to the clinical pathology outlined in the exam findings, performance of this nail treatment is medically necessary as its management by an unskilled/untrained nonprofessional would put this patients foot and overall health at risk. Therefore, debridement to affected nail(s), as described in exam ( TA, T1, T2, T3, T4, T5, T6, T7, T8, T9, ), was performed exclusively by the physician of record to reduce/remove overall nail length, girth, thickness, subungual debris, and necrotic tissue, by manual and/or electrical means through the use of a nail nipper and/or dremel-type carbide grinder, to a more viable healthy nail plate or bed tissue 6- 10 nails in total. Silver nitrate was used for any petechial bleeding as necessary. Definitive antifungal treatment options, both pharmaceutical and surgical, have been reviewed and discussed with the patient. The patient solely prefers the use of intermittent/as needed professional debridement services for their nail condition and understands the need for additional periodic treatments to maintain effectiveness in symptomatic relief - 92917.?Wart Treatment:?Procedure?Verruca, as described in exam, were debrided to pin-point bleeding margins with sterile 15 surgical blade, silver nitrate chemocautery applied, recomm. immune-boosting meds such as zinc, recomm. follow up with topical chemosurgical agents, Pt defers any other forms of tx - 94438.? * Procedure Codes:?79097 DEBRI DE NAIL, 6 OR MORE, Modifiers: XS 09974 Wart Destruction, 1-14, Modifiers: XS * Follow Up:?2 Months * Images: * Sign off status: Completed true * Provider:?Nalini Dyer, DPMarie Date:? Generated for Luisa john/Alexandrea/Obedsmbilly on:?10/04/2024 05:00 PM EDT History and Physical Notes * HPI (History of Present Illness) Category Sub-Category Detail Notes Category Not es Painful Nails Pt States Last PCP Visit: Date:: 08/17/2024 Skin problems Pt States PCP Visit: DATE: 08/17/2024 Examination Category Sub-Category Detail Notes Category Not es Dermatologic SKIN FINDINGS: Skin exam reveal s Keratotic lesion(s) located at , TA , T2 , T3 , T5 , T6 , SUB MTH (s) , 1 , Heel(s), B/L VERRUCA: Reveals a Single , m ulti-loculated , mosaic-patterned, round, raised, flat-topped, petechial bleeding papule(s), with cauliflower appearance and interruption of skin lines, pain to lateral compression, and size estimated at 3plantar Forefoot, mm diameter, LEFT Nails NAILS are: Elongated, overg rown, dystrophic, lytic, greater than 3mm thick, discolored and friable with crumbly malodorous subungual debris, with pain on palpation, TA, T1, T2, T3, T4, T5, T6, T7, T8, T9
--- OUTSIDE RECORDS SUMMARY | 2024-10-04 17:01 | XMS_ITS | Clinical Summary ---
Author Organization [employer] Address [address] [facility] 7[address] [place] [address] Care Team Providers Care Pastoral Ministries Professor Name Role Phone Name, Leland MIMS Primary Care Provider [phone] Allergies No known active allergies Medications * [...] or split. 100 tablet 1 024 Active lisinopril 10 MG tablet Take 1 tablet (10 mg) by mouth Once per day. 90 tablet 1 025 2025 Active gabapentin (Neurontin) 800 MG tabletIndicatio ns:Chronic pain syndrome TAKE 1 TABLET BY MOUTH THREE TIMES DAILY 90 tablet 3 025 Active Anoro Ellipta 62.5-25 MCG/ACT aerosol powder Inhale 1 puff Once per day. 025 Active Silver (SilvaSorb) gel Apply to ulcer on the left leg 025 Active mometasone (Elocon) 0.1 % ointmentIndicat ions:Venous stasis dermatitis of both lower extremities Apply topically Once per day. APPLY TOPICALLY EVERY DAY IN THE MORNING 45 g 3 025 Active oxyCODONE (Roxicodone) 5 MG immediate release tablet Take 1 tablet by mouth every 6 (six) hours if needed. 025 Active Diclofenac Sodium 1 % gelIndications: Low back pain due to bilateral sciatica APPLY 2 GRAMS TO THE AFFECTED AREA(S) TWICE DAILY 100 g 025 Active zolpidem (Ambien) 10 MG tabletIndicatio ns:Insomnia, unspecified type TAKE 1 TABLET BY MOUTH AT BEDTIME NEEDED FOR SLEEP 28 tablet 025 Active tiZANidine (Zanaflex) 4 MG tablet Take 1 tablet (4 mg) by mouth every 8 (eight) hours if needed for muscle spasms for up to 20 days. 60 tablet 025 2024 Active DULoxetine (Cymbalta) [address] capsule Take 1 capsule (30 mg) by mouth 2 times daily. Do not crush or chew. 60 capsule Active Xarelto 20 MG tablet Take 1 tablet (20 mg) by mouth with evening meal. 30 tablet 2025 Active Diclofenac Sodium 1 % gelIndications: Low back pain due to bilateral sciatica Use to affected area bid 60 g 2024 Discontinued(R eorder (will not trigger notification to Pharmacy)) DULoxetine (Cymbalta) [address] capsule TAKE 1 CAPSULE BY MOUTH TWICE DAILY. DO NOT BREAK, CRUSH, DISSOLVE OR CHEW 60 capsule 2024 Discontinued(R eorder (will not trigger notification to Pharmacy)) zolpidem (Ambien) 10 MG tabletIndicatio ns:Insomnia, unspecified type TAKE 1 TABLET BY MOUTH AT BEDTIME NEEDED FOR SLEEP 28 tablet 025 2024 Discontinued(R eorder (will not trigger notification to Pharmacy)) Xarelto 15 MG tablet Take 15 mg by mouth. 2024 Discontinued(T herapy completed) Xarelto 20 MG tablet Take 20 mg by mouth. Do not start before September 07, 2024. 025 2024 Discontinued(R eorder (will not trigger notification to Pharmacy)) tiZANidine (Zanaflex) 4 MG tablet Take 1 tablet (4 mg) by mouth every 8 (eight) hours if needed for muscle spasms for up to 20 days. 60 tablet 025 2024 Discontinued(R eorder (will not trigger notification to Pharmacy)) Active Problems Problem Noted Date Diagnosed Date Presence of IVC filter 08/20/2024 Low back pain due to bilateral sciatica 05/17/20 24 Assessment & Plan (06/15/2024 2:43 PM EST): I advised to use heat for affected area I will prescribe one more time dexamethasone I explain to patient is not a good medication to take for manager intermediate due to side effects (weight gain, osteoporosis, [...] twice a day for 10 days I professor of counseling patient that if problem persists or is [...] to the hospital, case was presented to [facility] I let them know patient should have a CTA to r/o pulmonary embolism Connell's cyst of knee, right 02/07/2024 Assessment & Plan (02/07/2024 3:06 PM EDT): I will refer him to orthopedics to address his pain Hammer toe of right foot 03/29/2023 023 Neuropathy 03/29/2023 03/29/2023 Other acquired deformities of left foot 03/29/20 23 03/29/2023 senior living (current) use of opiate analgesic 03/1303/23/2023 Overview [...] decreased range of motion. 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 Viral upper respiratory tract infection 11/22/2017 09/14/2023 Disorder of vein 11/11/2017 09/14/2023 Shoulder pain 01/20/2016 09/14/2023 Acute deep vein thrombosis of lower limb 12/12/2015 09/14/2023 Acute pulmonary embolism 12/12/201504/2023 Dyspepsia 02/02/2010 09/14/2023 Encounters Date Type Department Care Team Description 09/20/2024 Telephone [facility] [address] [place] [address] Leland Brandon MD Med Refill; NTTS 09/19/2024 Telephone [facility] [address] [place] [phone] Leland Brandon MD Durable Medical Equipment 09/17/2024 10:15 AM EDT Office Visit [facility] [address] [place] [address] Leland Brandon MD Ulcer of left lower leg associated with varicose veins (CMS/HCC) (Primary Dx); Chronic deep vein thrombosis (DVT) of left lower extremity, unspecified vein (CMS/HCC); Chronic pain syndrome 09/17/2024 Travel 09/12/2024 Refill [facility] [address] [place], [place] [phone] Leland Brandon MD Insomnia, unspecified type 09/10/2024 Patient Outreach [facility] [address] [place] [address] Leland Brandon MD Pre-visit Planning (SDOH negative, Tobacco screening negative.) 09/06/2024 Refill [facility] [address] [place] [address] Leland Brandon MD Low back pain due to bilateral sciatica 08/31/2024 Orders Only [facility] External Provider, [facility] 08/30/2024 10:00 AM EDT Office Visit [address] [address] Leland Brandon MD Acute deep vein thrombosis (DVT) of left lower extremity, unspecified vein (CMS/HCC) (Primary Dx); Ulcer of left lower leg associated with varicose veins (CMS/HCC); Chronic midline low back pain with sciatica, sciatica laterality unspecified 08/30/[address] [address] Leland Brandon MD Call Back Request 08/30/2024 Travel 08/27/[address] [address] Leland Brandon MD Nurse Triage 08/20/2024 3:20 PM EDT Office Visit [facility] [address] [place] [address] Leland Brandon MD Left leg pain (Primary Dx); Presence of IVC filter; Recurrent deep vein thrombosis (CMS/HCC); Cellulitis of left lower extremity; Ulcer of left lower leg associated with varicose veins (CMS/HCC); Venous stasis dermatitis of both lower extremities; Hand eczema 08/17/2024 Patient Outreach [address] [address] Leland Brandon MD Transition Of Care (Tcm) (HDF scheduled) 08/17/[address] [address] Leland Brandon MD Hospital Follow-up 08/16/[address] [address] Leland Brandon MD Insomnia, unspecified type 08/07/2024 1:15 PM EST Office Visit [facility] [address] [place] [address] Stacey Wade MD Cellulitis of left lower extremity (Primary Dx); Neurogenic claudication due to lumbar spinal stenosis 08/07/2024 Travel 08/06/2024 Telephone [facility] [address] [place] [address] Leland Brandon MD Nurse Triage 08/01/2024 2:15 PM EST Office Visit [address] [address] Leland Brandon MD Cellulitis, unspecified cellulitis site (Primary Dx); Chronic pain syndrome; Tremor of both hands 07/26/[address] [address] Leland Brandon MD FYI 07/25/2024 Refill [facility] [address] [place] [address] Stacey Wade MD Lumbago with sciatica, right side 07/24/[address] [address] Leland Brandon MD REQUEST ER NOTES; Med Refill (Patient walked in requesting med refill for Dexamethasone 4mg patient stated he went to pharmacy to get medication and theres no medication in the pharmacy ) 07/24/[address] [address] Leland Brandon MD Verbal Order 07/24/[address] [address] Leland Brandon MD Nurse Triage 07/20/2024 Orders Only [facility] [address] [place] [address] Leland Brandon MD Severe low back pain (Primary Dx); Radicular leg pain 07/17/2024 Refill [facility] [address] [place] [address] Leland Brandon MD Insomnia, unspecified type 07/14/2024 12:00 PM EST Office Visit [facility] [address] [place] [address] Name, MD Leland Severe low back pain (Primary Dx); Neurogenic claudication due to lumbar spinal stenosis 07/14/2024 Travel 07/06/2024 9:00 AM EST Office Visit [facility] [address] [place] [address] Name, MD Leland Neurogenic claudication due to lumbar spinal stenosis (Primary Dx); Radicular leg pain; Severe low back pain 07/06/2024 Travel from Last 3 Months Immunizations Name Administration [...] housing situation today? I have andrew machuca 09/10/[address] you li ve. Do you have problems with any of the following? None of the above 09/10/2024 Food Insecurity Answer Date Recorded Within the past 12 months, y ou worried that your food would run out before you got money to buy more: Never True 09/10/2024 Within the past 12 months,th e food you bought just didn't last and you didn't have enough money to get more: Never True Transportation Answer Date Recorded In the past 12 months, has l ack of transportation kept you from medical appts, meetings, work or from getting things needed for daily living? No 09/10/2024 Utilities Answer Date Recorded In the past 12 months, has t he electric, gas, oil or water company threatened to shut off services in your home? No 09/10/2024 Depression Answer Date Recorded Patient Health Questionnaire-2 Score 0 09/14/2023 Internet Access Answer Date Recorded Internet Access Q1 Yes 09/10/2024 Internet Access Q2 Not on file 09/10/2024 Sex and Gender Information Value Date Recorded Sex Assigned at Male 04/12/2022 10:15 AM EDT Legal Sex Male 10:15 AM EDT Gender Identity Male 04/12/2022 10:15 AM EDT Sexual Orientation Straight 12/08/2023 1: 32 PM EDT Sexual Orientation Asexual 12/08/2023 1: 32 PM EDT Last Filed Vital Signs Vital Sign Reading Time Taken Comments Blood Pressure 126/70 09/17/2024 10:11 AM EDT Pulse 80 09/17/2024 10:11 AM EDT Temperature 36.3 ??C (97.4 ??F) 09/17/2024 10:11 AM E DT Respiratory Rate 14 09/17/2024 10:11 AM EDT Oxygen Saturation 94% 09/17/2024 10:11 AM EDT Inhaled Oxygen Concentration - - Weight 137 kg (301 lb 9.6 oz) 09/17/2024 10:11 A M EDT Height 182.9 cm (6') 09/17/2024 10:11 AM EDT Body Mass Index 40.9 09/17/2024 10:11 AM EDT Plan of Treatment Upcoming Encounters Date Type Department Care Team (Late st Contact Info) Description 11/16/2024 9:00 AM EDT Office Visit [facility] [address] [place] [address] Name, MD Leland [facility] [place] [address] Health Maintenance Due Date Last Done Comments CT Colonography 1965 FIT DNA/Cologuard 1965 FIT 1965 FOBT 1965 Sigmoidoscopy 1965 RSV Patients and Patients Aged 60 years or older (1 - Risk 60-74 years 1-dose series) 2023 COVID-19 Vaccine ( season) 2024 06/18/2021, 10/30/2020, 10/02/2020 Depression Screening 09/13/2024 09/14/2023, 09/14/19 Alcohol/Substance Use Screening 12/13/2024 12/14/2023 SDOH Screening 09/10/2025 09/10/2024 Tobacco Screening 09/17/2025 09/17/2024 DTaP/Tdap/Td Vaccines (2 - Td or Tdap) [...] Procedure Name Priority Date/Time Associated Diagnosis Comments AMB REFERRAL TO NEUROLOGY Routine 09/25/2024 Tremor of both hands XR LUMBAR SPINE COMPLETE 4+ VIEWS Routine 08/31/2024 2:06 PM EDT TSH W/REFLEX TO FT4 Routine 08/01/2024 3 :05 PM EST Tremor of both hands MR LUMBAR SPINE WO CONTRAST Routine 07/16/2024 6:25 PM EST Severe low back pain Neurogenic claudication due to lumbar spinal stenosis Radicular leg pain HEPATITIS C AB W/REFL TO HCV RNA, [...] Recently Relevant to Health Maintenance Results * Referral to Neurology (09/25/2024) us Leland Brandon MD OUTPATIENT REFERRAL ORDERABLES E dited Result - Final * XR Lumbar Spine Complete 4+ Views (08/31/2024 2:06 PM EDT) Anatomical Region Laterality Modality Spine, L-spine Radiographic Rasheeda ging 08/31/2024 2:06 PM EDT Narrative 09/03/2024 1:46 PM EDT ? [facility] ? [address] ?[place] [address] ?XRay Report ? Signed ? Patient: Steven Novak ?MR#: M ?? [id number] ? : 1965 ?Acct:[id number] ? Age/Sex: 59 / M ?ADM Date: 08/31/24 ? Loc: HO.HOSX ? Attending Dr: Francisco MCKEON ? Ordering Physician: Francisco Velez ?? Date of Service: 08/31/24 ?? Procedure(s): XR lumbar spine 4V min ?? Accession Number(s): [id number] ? cc: Francisco Velez; Name,Leland MIMS ? EXAMINATION: ??XR LUMBAR SPINE 4 OR MORE VIEWS ? HISTORY: M48.062 - Spinal stenosis, lumbar region with neurogenic ?? claudication ? COMPARISON: Comparison is made with the prior examination dated ?? 06/18/2024. ? FINDINGS: ??AP, and neutral, flexion, and extension lateral views of the ?? lumbar spine are submitted. ??Osseous mineralization is normal. ??There ?? is mild rotatory dextroscoliosis. The vertebral bodies maintain normal ?? height without evidence of fracture. ??There is grade I ?? spondylolisthesis of L4 on L5. There is no significant change in ?? flexion or extension. ??There is mild to moderate degenerative disc ?? disease with disc space narrowing and osteophyte formation. There is ?? osteoarthritis of the lower lumbar facet joints. ??And IVC filter is ?? seen in place. ? XR/XR lumbar spine 4V min ?? IMPRESSION: ?? Mild rotatory dextroscoliosis. Grade I spondylolisthesis of L4 on L5 ?? without significant change in flexion or extension. Mild to moderate ?? degenerative disc disease. ? Electronically signed by: ??Cristian Herron MD ??09/03/2024 01:43 PM EDT ?? RP ? Dictated By: ?Cristian Herron MD ? Signed By: ?<Electronically signed by Cristian Herron MD in OV> ?09/03/24 1343 ? DD/ 1406 ? TD/TT: 08/31/24 1410 ? [employer] [facility]ver: ? Procedure Note Donotuseinterpreter, Image - 09/03/2024 [facility] [address] [place] [address] XRay Report Signed Patient: Michele Novak#: M [id number] : 1965Acct:[id number] Age/Sex: 59 / MADM Date: 08/31/24 Loc: HO.HOSX Attending Dr: Francisco MCKEON Ordering Physician: Francisco Velez Date of Service: 08/31/24 Procedure(s): XR lumbar spine 4V min Accession Number(s): [id number] cc: Francisco Velez; Name,Leland MIMS EXAMINATION: XR LUMBAR SPINE 4 OR MORE VIEWS HISTORY: M48.062 - Spinal stenosis, lumbar region with neurogenic claudication COMPARISON: Comparison is made with the prior examination dated 06/18/2024. FINDINGS: AP, and neutral, flexion, and extension lateral views of the lumbar spine are submitted. Osseous mineralization is normal. There is mild rotatory dextroscoliosis. The vertebral bodies maintain normal height without evidence of fracture. There is grade I spondylolisthesis of L4 on L5. There is no significant change in flexion or extension. There is mild to moderate degenerative disc disease with disc space narrowing and osteophyte formation. There is osteoarthritis of the lower lumbar facet joints. And IVC filter is seen in place. XR/XR lumbar spine 4V min IMPRESSION: Mild rotatory dextroscoliosis. Grade I spondylolisthesis of L4 on L5 without significant change in flexion or extension. Mild to moderate degenerative disc disease. Electronically signed by: Cristian Herorn MD 09/03/2024 01:43 PM EDT Dictated By: Cristian Herron MD Signed By: <Electronically signed by Cristian Herron MD in OV> 09/03/24 1343 DD/ 1406 TD/TT: 08/31/24 1410 [employer] [facility]: [facility] External Provider IMG XR PROCEDURES Final Result * TSH W/Reflex to FT4 (08/01/2024 3:05 PM EST) TSH reflex Free T4 0.69 0.32 - 4.0 uIU/mL [facility] Blood Venous blood specimen / Unknown 08/01/2024 3:05 PM EST 08/01/2024 4:20 PM EST us Leland Name MD LAB BLOOD ORDERABLES Final Resul t [facility] [address] [place] [address] [phone] * MR Lumbar Spine w/o Contrast (07/16/2024 6:25 PM EST) Anatomical Region Laterality Modality Spine, L-spine Magnetic Resonan ce 07/16/2024 6:25 PM EST Narrative 07/17/2024 7:57 AM EST ? [facility] ?[address] ?[place] [address] ? Magnetic Resonance Report ? Signed ? Patient: Steven Novak ?MR#: M ?? [id number] ? : 1965 ?Acct:[id number] ? Age/Sex: 59 / M ?ADM Date: 07/16/24 ? Loc: HO.MRI ? Attending Dr: Leland Brandon MD ? Ordering Physician: Leland Brandon MD ?? Date of Service: 07/16/24 ?? Procedure(s): MR lumbar spine wo con ?? Accession Number(s): [id number] ? cc: Leland Brandon MD ? EXAMINATION: [...] DD/ 1825 ? TD/TT: 07/16/24 1855 ? [employer] [facility]: ? Procedure Note Donotuseinterpreter, Image - 07/17/2024 [place] [address] Magnetic Resonance Report Signed Patient: Michele Novak#: M [id number] : 1965Acct:[id number] Age/Sex: 59 / MADM Date: 07/16/24 Loc: HO.MRI Attending Dr: Leland Brandon MD Ordering Physician: Leland Brandon MD Date of Service: 07/16/24 Procedure(s): MR lumbar spine wo con Accession Number(s): [id number] cc: Leland Brandon MD EXAMINATION: MR LUMBAR [...] signed by Santana Garvin MDin OV> 07/17/24 5639 DD/ 1825 TD/TT: 07/16/24 1855 [employer] [facility]ver: Leland HUNG MRI PROCEDURES Edited Result - Final * Hepatitis C Antibody with Reflex to HCV, RNA, Quantitative, Real-Time PCR (10/14/2023 11:05 AM EDT) Hepatitis C Antibody Nonreactive Nonreactive [facility] Comment:Antibodies to HCV no t detected; does not exclude early acuteHCV infection. Blood Venous blood specimen / Unknown 10/14/2023 11:05 AM EDT 10/14/2023 1:15 PM EDT us Leland Brandon MD LAB BLOOD ORDERABLES Final Resul t Performing Organization Address [facility] Co de Phone Number [facility] [address] [place] [address] [phone] * HIV-1/2 Antigen and Antibodies, Fourth Generation, with Reflexes (10/14/2023 11:05 AM EDT) HIV AB/AG Nonreactive Nonreactive [facility] Comment:HIV-1 p24 Ag and/or HIV-1/HIV-2 Ab not detected.A test result that is nonreactive does not exclude thepossibility of exposure to or infection with HIV-1 and/orHIV-2. Nonreactive results in this assay for individualswith prior exposure to HIV-1 and/or HIV-2 may be due toantigen and antibody levels that are below the limit ofdetection of this assay.The [employer]Sense HIV Ag/Ab Combo assay result andsupplemental assay results should be interpreted inconjunction with the patient's clinical presentation,history and other laboratory results. If the results areinconsistent with clinical evidence, additional testing issuggested to confirm the result. Blood Venous blood specimen / Unknown 10/14/2023 11:05 AM EDT 10/14/2023 1:15 PM EDT us Leland Brandon MD LAB BLOOD ORDERABLES Final Resul t Performing Organization Address [facility] Co de Phone Number [facility] [address] [place] [phone] * (ABNORMAL) Lipid Panel, Standard (10/14/2023 11:05 AM EDT) Triglycerides 105 <150 mg/dL [facility] Comment:Desirable Triglyceri de: less than 150 mg/dLBorderline High Triglyceride 150-199 mg/dLHigh Triglyceride: 200-499 mg/dLVery High Triglyceride: greater than or equal to 5OO mg/dL Cholesterol 192 <200 mg/dL [facility] Comment:Desirable Cholestero l: less than 200 mg/dLBorderline High Cholesterol: 200-239 mg/dLHigh Cholesterol: greater than 239 mg/dL LDL Cholesterol Calculated 102(H) <100 mg/dL [facility] Comment:Desirable LDL: less than 100 mg/dLNear Optimal/Above Optimal LDL: 110- 129 mg/dLBorderline High LDL: 130-159 mg/dLHigh LDL: 160-189 mg/dLVery High LDL: greater than or equal to 190 mg/dL HDL Cholesterol 69 >40 mg/dL [facility] Comment:Desirable HDL: great er than 40 mg/dL Note: This HDL assay may give artificially low results in patients with liver disease. Blood Venous blood specimen / Unknown 10/14/2023 11:05 AM EDT 10/14/2023 1:15 PM EDT us Leland Brandon MD LAB BLOOD ORDERABLES Final Resul t [facility] [address] [place] [phone] * Hm Colonoscopy (07/14/2023) Colonoscopy Normal Normal Comment:Normal Colonoscopy r epeat 10 years us Leland Brandon MD HEALTH MAINTENANCE Final Result from Last 3 Months or Most Recently Relevant to Health Maintenance [place] [address] [address] - [employer] Care Teams Pastoral Ministries Professor Relationship Specialty Start Date End Date Name, MD Leland [address] [place] [phone] PCP - General Family Medicine 08/26/15
--- OUTSIDE RECORDS SUMMARY | 2024-10-04 17:01 | XMS_ITS | Encounter Summary ---
Author Organization [employer] Address [address] [facility] [address] [place] [address] Care Team Providers Care General Store Manager Name Role Phone Name, Leland MIMS Primary Care Provider [phone] Reason for Visit * Reason Onset Date Comments Med Refill 05/25/2024 Encounter Details Date Type Department Care Team ([facility] st Contact Info) Description 05/25/2024 Telephone [facility] [address] [place], [place] [phone] Name, MD Leland [address] [place] [address] Med Refill Social History Tobacco Use Types [...] 4 MG tablet To be sent to: [facility] documented in this encounter Plan of Treatment Upcoming Encounters Date Type Department Care Team (Late st Contact Info) Description 11/16/2024 9:00 AM EDT Office Visit [facility] [address] [place] [phone] Name, MD Leland [address] [place] [address] documented as of this encounter Visit Diagnoses Not on filedocumented in this encounter Additional Health Concerns Assessment Noted Time PHQ-9 Depression Total Score: 0 09/14/19 24 3:10 PM EDT documented as of this encounter Care Teams General Store Manager Relationship Specialty Start Date End Date Name, MD Leland [address] [place] [address] PCP - General Family Medicine 08/26/15 documented as of this encounter
--- OUTSIDE RECORDS SUMMARY | 2024-10-04 17:01 | XMS_ITS | Encounter Summary ---
Author Organization [employer] Address [address] [facility] [address] [place] [address] Care Team Providers Care Supervisor Gear Repair Name Role Phone Name, Leland MIMS Primary Care Provider [phone] Reason for Visit * Reason Onset Date Comments Med Refill 01/02/2024 Encounter Details Date Type Department Care Team ([facility] st Contact Info) Description 01/02/2024 Telephone [facility] [address] [place] [address] Name, MD Leland [address] [place] [address] Med Refill Social History Tobacco Use Types [...] 10 MG tablet To be sent to: [facility] - [place], [place] - [address] [place] [address] documented in this encounter Plan of Treatment Upcoming Encounters Date Type Department Care Team (Late st Contact Info) Description 11/16/2024 9:00 AM EDT Office Visit [facility] [address] [place] [address] Name, MD Leland [address] [place] [address] documented as of this encounter Visit Diagnoses Not on filedocumented in this encounter Additional Health Concerns Assessment Noted Time PHQ-9 Depression Total Score: 0 09/14/19 24 3:10 PM EDT documented as of this encounter Care Teams Supervisor Gear Repair Relationship Specialty Start Date End Date Name, MD Leland [address] [place] [address] PCP - General Family Medicine 08/26/15 documented as of this encounter
--- OUTSIDE RECORDS SUMMARY | 2024-10-04 17:01 | XMS_ITS | Patient Health Record ---
Author Organization [facility] Address [address] [facility] [place] [address] Care Team Providers Care Jewelry Consultant Name Role Phone Name Leland MIMS Primary Care Provider UnavailAlex Naqvimie Unavailable [phone] Manisha Nalini Unavailable [phone] Allergies No Known Allergies Reason For Referral No Information Medications Medication SIG (Take, Route, Frequency, Duration) Notes Start Date End Date Status Naproxen 500 MG 1 tablet Orally WITH FOOD Twice a day for 14 days 01/28/2023 Not-Taki ng Ciclopirox 0.77 % 1 application Roller Picker ally Twice a day for 30 days 07/15/2022 Not-Taki ng Medrol juan j 4mg as [...] 20 MG TAKE 1 CAPSULE BY [facility] EVERY DAY WITH FOOD FOR 30 DAYS for 30 Not-Taking Gabapentin 800 MG 1 tablet Orally Once [...] Problem Status W/U Status Risk Notes Problem 34045520 Plantar wart (B07.0) Active confirmed Problem Acquired hammer toe of left foot (6763490830199116) Other hammer toe(s) (acquired), left foot (M20.42) Active confirmed Problem 581917618 Hammer toe of right foot (M20.41) Active confirmed Problem 479138431 Neuropathy (G62.9) Active confirmed Problem 729194463746581 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 (M19.071) Active confirmed Problem Acquired deformity of left foot (36016244476259596) PlantarFlexion of metatarsal of left foot (M21.6X2) Active confirmed Problem 4444476217395020 Gouty arthritis of left foot (M10.9) Active confirmed Vital Signs Blood pressure diastolic 80 mm Hg 09/06/2024 Height 6ft in 09/06/2024 Blood pressure systolic 130 mm Hg 09/06/2024 Weight 289 lbs 09/06/2024 BMI 39.19 kg/m2 09/06/2024 Encounters Encounter Location Date Provider Diagnosis [address] [address] 12/08/2023 Nalini Perica Tinea unguium B35.1 ; Pain in right toe(s) M79.674 and Pain in left toe(s) M79.[address] [facility] [address] 05/21/2024 Nalini Perica Tinea unguium B35.1 ; Metatarsalgia, left foot M77.42 ; Pain in right toe(s) M79.674 ; Pain in left toe(s) M79.675 ; Xerosis of skin L85.3 ; PlantarFlexion of metatarsal of left foot M21.6X2 ; Other hammer toe(s) (acquired), left foot M20.42 ; Hammer toe of right foot M20.41 and Bursitis of intermetatarsal bursa of left foot M77.[address] [facility] [address] 09/06/2024 Nalini Perica Pain in right toe(s) M79.674 ; Onychomycosis B35.1 ; Pain in left toe(s) M79.675 ; Plantar wart B07.0 and Left foot pain M79.672 [facility] [address] [place] [address] 02/06/2024 [facility] [address] 03/05/2024 Yaquelin Smith Assessments Encounter Date Diagnosis (ICD Code) Assessment Notes Treatment Notes Treatment Clinical Notes Section Notes 12/08/2023 Tinea unguium (ICD-10 - B35.1) 12/08/2023 Pain in right toe(s) (ICD-10 - M79.674) 05/21/2024 Tinea unguium (ICD-10 - B35.1) 09/06/2024 Pain in right toe(s) (ICD-10 - M79.674) 09/06/2024 Pain in left toe(s) (ICD-10 - M79.675) 09/06/2024 Onychomycosis (ICD-10 - B35.1) 05/21/2024 Pain in right toe(s) (ICD-10 - M79.674) 05/21/2024 Metatarsalgia, left foot (ICD-10 - M77.42) 12/08/2023 Pain in left toe(s) (ICD-10 - M79.675) 09/06/2024 Plantar wart (ICD-10 - B07.0) 05/21/2024 Pain in left toe(s) (ICD-10 - M79.675) 05/21/2024 Xerosis of skin (ICD-10 - L85.3) 09/06/2024 Left foot pain (ICD-10 - M79.672) 05/21/2024 PlantarFlexion of metatarsal of left foot [...] X ray : Foot, right 3V 01/27/2023 [id number]-[id number] NAIL, 6 OR MORE 11/03/2021 37829-AYHIGCX NAIL, 6 OR MORE 01/19/2022 27445, J0702- INJECT TENDON ORIGIN/INSER T 01/27/2023 95356, T1655-HMARB/INJECT, JOINT/BURSA 0 07/02/2022 X ray : Ankle, right 3V 01/27/2023 Next Appt Details Provider Name:Nalini addison, 11/15/2024 02:30:00 PM, [address] [place], [address], Insurance Providers Payer Name Payer Address Payer Phone Subscriber Number Group Number Insured Name Patient Relationship to Insured Coverage Start Date Coverage End Date [facility] [place] [employer] Claims [address] [place] [phone] [id number] Steven Subramanian Self - patient is the insured Medical (General) History Medical History History ICD Code Arthritis Depression Psoriasis/eczema Surgical History Surgery Date(Month/Year) ear tubes Hospitalization History Reason Date(Month/Year) blood clot 09/04 [facility] leg issue, cyst [facility]- blood clot 07/2021
--- OUTSIDE RECORDS SUMMARY | 2024-10-04 17:01 | XMS_ITS | Clinical Summary ---
Author Organization [facility] Address [address] [place] [address] Phone Care Team Providers Care Last Greaser Name Role Phone Name, Leland MIMS Primary Care Provider [phone] Allergies No known active allergies Medications DICLOFENAC [...] - Risk 2-dose series) 1982 RSV Immunization Adult Patients (1 - Risk 60-74 years 1-dose series) [...] age to complete this topic Meningococcal B Vaccine Aged Out No l onger eligible based on patient's age to complete [...] ID:[id number] Group ID:[id number] Type:Not on file Address: [place] [address] [place] [address] Care Teams Last Greaser Relationship Specialty Start Date End Date Name, MD Leland [address] [place] [address] PCP - General 01/06/15
--- OUTSIDE RECORDS SUMMARY | 2024-10-04 17:01 | XMS_ITS | Encounter Summary ---
Author Organization [employer] Address [address] [facility] 7t [place] [address] Care Team Providers Care Detonator Assembler Name Role Phone Name, Leland MIMS Primary Care Provider [phone] Reason for Visit * Reason Onset Date Comments FYI 07/26/2024 Encounter Details Date Type Department Care Team ([facility] st Contact Info) Description 07/26/2024 Telephone [facility] [address] [place] [address] Name, MD Leland [address] [place] [address] Social History Tobacco Use Types Packs/Day Years [...] EST Tc from Sol with [facility] stating that they contact Pt but he refused Both time and they are only allowed to try and offer the Services twice. So they said that they were not going to keep trying. If any questions contact Sol at [phone] documented in this encounter Plan of Treatment Upcoming Encounters Date Type Department Care Team (Late st Contact Info) Description 11/16/2024 9:00 AM EDT Office Visit [facility] [address] [place] [address] Name, MD Leland [address] [place] [address] documented as of this encounter Visit Diagnoses Not on filedocumented in this encounter Additional Health Concerns Assessment Noted Time PHQ-9 Depression Total Score: 0 09/14/19 24 3:10 PM EDT documented as of this encounter Care Teams Detonator Assembler Relationship Specialty Start Date End Date Name, MD Leland [address] [place] [address] PCP - General Family Medicine 08/26/15 documented as of this encounter
--- OUTSIDE RECORDS SUMMARY | 2024-10-04 17:01 | XMS_ITS | Clinical Summary ---
Author Organization [facility] Address [address] [place] [address] Care Team Providers Care Boot Liner Maker Name Role Phone No, Pcp Primary Care [...] Vaccine ( season) 2024 06/18/2021, 10/30/2020, 10/02/2020 Alcohol/Substance Use Screening 06/13/2024 Depression Screening and Follow-Up 06/13/2024 Social Drivers of Health Annual Screening 06/13/2024 Influenza Vaccine (Season Ended) 2025 03/24/2021, 04/10/2020, 05/17/2019, Additional history exists DTaP,Tdap,and Td Vaccines (2 - Td or Tdap) 03/20/2028 03/20/2018, 07/09/1998 Zoster Vaccines Completed 08/26/2020, 06/25/2020 Hepatitis B Vaccines Aged Out No long er eligible based on patient's age to complete this topic Insurance [facility] Care Teams Boot Liner Maker Relationship Specialty Start Date End Date No, Pcp HIREN PCP - General 01/29/22
--- OUTSIDE RECORDS SUMMARY | 2024-10-04 17:01 | XMS_ITS | Encounter Summary ---
Author Organization [employer] Address [address] [facility] [address] 7t [place] [address] Care Team Providers Care Lab Nurse Name Role Phone Name, Leland MIMS Primary Care Provider [phone] Reason for Visit * Reason Comments Med Refill Encounter Details Date Type Department Care Team ([facility] st Contact Info) Description 07/25/2024 Refill [facility] [address] [place], [place] [phone] Stacey Wade MD [address] [place] [address] Lumbago with sciatica, right side Social History [...] Description 11/16/2024 9:00 AM EDT Office Visit [facility] [address] [place] [address] Name, MD Leland [address] [place] [address] documented as of this encounter Visit Diagnoses Diagnosis Lumbago with sciatica, right side documented in this encounter Additional Health Concerns Assessment Noted Time PHQ-9 Depression Total Score: 0 09/14/19 24 3:10 PM EDT documented as of this encounter Care Teams Lab Nurse Relationship Specialty Start Date End Date Name, MD Leland [address] [place] [address] PCP - General Family Medicine 08/26/15 documented as of this encounter
--- OUTSIDE RECORDS SUMMARY | 2024-10-04 17:01 | XMS_ITS | Encounter Summary ---
Author Organization [employer] Address [address] [facility] 7t [place] [address] Care Team Providers Care Rn Womens Health Name Role Phone Name, Leland MIMS Primary Care Provider [phone] Reason for Visit * Reason Onset Date Comments Med Refill 07/28/2023 Encounter Details Date Type Department Care Team ([facility] st Contact Info) Description 07/28/2023 Telephone [facility] MED[facility] [address] [place] [address] Name, MD Leland [address] [place] [address] Med Refill Social History Tobacco Use Types [...] Vogt LPN - 07/28/2023 11:52 AM EST FISH[facility] NET checked 07/28/23 last filled on 06/17/23 refill 2/3 patient should have 1 refill left. * Telephone Encounter - Hailee Louie - 07/28/2023 11:08 AM EST TC from pt requesting medication refill. Medications needing refill : gabapentin (Neurontin) 800 MG tablet To be sent to: [facility] [place] - [address] [place] [address] documented in this encounter Plan of Treatment Upcoming Encounters Date Type Department Care Team (Late st Contact Info) Description 11/16/2024 9:00 AM EDT Office Visit [facility] [address] [place] [address] Name, MD Leland [address] [place] [address] documented as of this encounter Visit Diagnoses Not on filedocumented in this encounter Additional Health Concerns Assessment Noted Time PHQ-9 Depression Total Score: 0 09/07/19 23 1:16 PM EDT documented as of this encounter Care Teams Rn Womens Health Relationship Specialty Start Date End Date Name, MD Leland [address] [place] [address] PCP - General Family Medicine 08/26/15 documented as of this encounter
--- OUTSIDE RECORDS SUMMARY | 2024-10-04 17:01 | XMS_ITS | Data Portability ---
Author Organization [facility] Address [address] [place] [address] Care Team Providers Care Deputy Juvenile Officer Name Role Phone [facility] Referring Provider [facility] Referring Provider Assessment No assessment recorded. Plan of Treatment Reminders Order Date Submit Date Provider Last Modified By Organization Details Last Modified Time Details Appointments None recorded. Lab None recorded. Referral None recorded. Procedures None recorded. Surgeries None recorded. Imaging None recorded. Medication Orders cephalexin 500 mg capsule 2023 024 [facility][id number], [address] [place], [address], 4 20:15:29 cephalexin 500 mg capsule 2023 [...] Available Not Available No t Available omega 8-yrj-myf-fi sh oil 1,000 mg (120 mg-180 mg) [...] Updated DateTime 4 86 /min 18 /min 719073. 72 g 98.6 [degF] 98 % 98 % 154 mm[Hg] 94 mm[Hg] Not Available [employer] 4 20:11:37 Date Recorded Respiratory rate Oxygen saturation Oxygen saturation in Arterial blood by Pulse oximetry Body temperature Heart rate Systolic blood pressure Diastolic blood pressure Provider Name and Address Organization Details Last Updated DateTime 2 20 /min 94 % 94 % 97.7 [degF] 74 /min 125 mm[Hg] 75 mm[Hg] Not Available [employer] 2 07:41:40 Social History None recorded. Functional Status None recorded. Mental Status None recorded. Family History Nothing Reported. Medical History No medical history recorded. Past Encounters Encounter ID Performer Location Encounter Start Date Encounter Closed Date Diagnosis/Indication Diagnosis SNOMED-CT Code Diagnosis ICD10 Code Diagnosis Note [id number] Lucia Khoury MD [facility] [address] [place] [id number] 0 12/05/2021 07:41:38 02/10/2022 10:34:04 History of deep vein thrombosis 267833238 Z86.718 56 year old male with chronic [...] primary regarding why this change was made. [id number] Arsalan Vera MD [facility] [address] [place] [address] 06/23/2023 20:11:26 06/23/2023 22:45:58 Cellulitis of left lower limb [id number] 2478966 L03.116 Reports increased redness and swelling of LLE. On enoxaparin for history of DVT. No new swelling. Pulses normal per contract technical writer. No fevers, chills, systemic symptoms. Plan for empiric treatment with cephalexin and PCP follow-up Health Concerns Section Related Observation LastModified by Organization Detai ls LastModified Time None Recorded Concern Status LastModified by Organization Details LastModified Time None Recorded Advance Directives Directive None Recorded Payers Encounter Date Sequence Insurance Name Policy Number Policy Simon Covered Member ID Simon Member ID Guarantor Name 12/04/2021 1 [facility] - DOS PRIOR TO 2022 - DUAL ELIGIBLE (MEDICARE REPLACEMENT/ADV ANTAGE - HMO) Steven Subramanian [id number] Steven Subramanian 06/23/2023 1 [facility] - DOS ON OR AFTER 2022 - DUAL ELIGIBLE - GROUP HOME OPTIONS AND ONE CARE (MEDICARE REPLACEMENT/ADV ANTAGE - HMO) Steven Subramanian [id number] Steven Subramanian Notes Date Note Type Note [...] ................... ................... ................... ................... ................... ................... ........ Tape Stringer Note: Patient bilateral lower extremity pain times [...] ........ Disposition: Fulfilled Lucia Khoury MD [address] [facility],[address], [place], [address], [employer] 12/05/2021 07:49:52 06/23/2023 text/html HPI: Chronic deep vein thrombosis (DVT) of left lower extremity 09/2018 Paatient seen by PCP 05/31/23 continues on Lovenox and compression stockings. No missed doses per patient. Increased pain and burning with ambulation. ................... ................... ................... ................... ................... ................... ................... ........ CRC Nurse Triage Notes (Mnii Roche): Comments: Attempted to call for further information- No answer- N Melchor ARIZA ................... ................... ................... ................... ................... ................... ................... ........ Tape Stringer Note From Gatito Rios: Pt co itchy redness on left lower extremity that is also painful. Pt denies fever nausea vomiting diarrhea. Baseline vitals assessed. Extremity redish warm to touch . No edema. [facility] [place] pics uploaded ?500mg keflex given po and RX called in . Pt education on signs indicating the ER. ................... ................... ................... ................... ................... ................... ................... ........ Disposition: Fulfilled Arsalan Vera MD [address] [facility],[address], [place], [address], [employer] 06/23/2023 21:40:40
--- OUTSIDE RECORDS SUMMARY | 2024-10-04 17:01 | XMS_ITS | Encounter Summary ---
Author Organization [employer] Address [address] [facility] 7t [place] [address] Care Team Providers Care Supervisor Cured Meats Name Role Phone Name, Leland MIMS Primary Care Provider [phone] Reason for Visit * Reason Onset Date Comments Verbal Order 07/24/2024 Encounter Details Date Type Department Care Team ([facility] st Contact Info) Description 07/24/2024 Telephone [facility] MEDICINE [address] [place] [address] Name, MD Leland [address] [place] [address] Verbal Order Social History Tobacco Use Types [...] EST Telephone call returned to Katey at [facility], spoke with Katey. Gave verbal orders for VNA care. Asked when last office visit was, advised it was 07/06/24 with PCP and also pt was seen in [facility] walk in clinic on 07/14/24. Katey verbalized understanding, no further questions. * Telephone Encounter - João Bhatt - 07/24/2024 4:34 PM EST Tc from Emelia with [facility] requesting verbal orders. Please contact Emelia at [phone] Opt 2. documented in this encounter Plan of Treatment Upcoming Encounters Date Type Department Care Team (Late st Contact Info) Description 11/16/2024 9:00 AM EDT Office Visit [facility] MED[facility] [address] [place] [address] Name, MD Leland [address] [place] [address] documented as of this encounter Visit Diagnoses Not on filedocumented in this encounter Additional Health Concerns Assessment Noted Time PHQ-9 Depression Total Score: 0 09/14/19 24 3:10 PM EDT documented as of this encounter Care Teams Supervisor Cured Meats Relationship Specialty Start Date End Date Name, MD Leland [address] [place] [address] PCP - General Family Medicine 08/26/15 documented as of this encounter
--- OUTSIDE RECORDS SUMMARY | 2024-10-04 17:01 | XMS_ITS | Referral Summary ---
Author Organization [facility] Address [address] [place] [address] Care Team Providers Care Fisher Troll Line Name Role Phone No, Pcp Primary Care [...] Treatment Not on file Insurance Care Teams Fisher Troll Line Relationship Specialty Start Date End Date No, Pcp HIREN PCP - General 01/29/22
--- OUTSIDE RECORDS SUMMARY | 2024-10-04 17:01 | XMS_ITS | Encounter Summary ---
Author Organization [employer] Address [address] [facility] [address] [place] [address] Care Team Providers Care Sod Farmer Name Role Phone Name, Leland MIMS Primary Care Provider [phone] Reason for Visit * Reason Comments Med Refill Encounter Details Date Type Department Care Team ([facility] st Contact Info) Description 09/23/2023 Refill [facility] [address] [place] [address] Ila Lora MD [address] [place] [address] Social History Tobacco Use Types Packs/Day Years [...] Description 11/16/2024 9:00 AM EDT Office Visit [facility] [address] [place] [address] Name, MD Leland [address] [place] [address] documented as of this encounter Visit Diagnoses Not on filedocumented in this encounter Additional Health Concerns Assessment Noted Time PHQ-9 Depression Total Score: 0 09/14/19 24 3:10 PM EDT documented as of this encounter Care Teams Sod Farmer Relationship Specialty Start Date End Date NameLeland MD [address] [place] [address] PCP - General Family Medicine 08/26/15 documented as of this encounter
--- OUTSIDE RECORDS SUMMARY | 2024-10-04 17:01 | XMS_ITS | Encounter Summary ---
Author Organization [employer] Address [address] [facility] 7t [place] [address] Care Team Providers Care Traffic Administrator Name Role Phone Name, Leland MIMS Primary Care Provider [phone] Reason for Visit * Reason Onset Date Comments Call Back Request 08/30/2024 Encounter Details Date Type Department Care Team ([facility] st Contact Info) Description 08/30/2024 Telephone [facility] MEDICINE [address] [place] [address] Name, MD Leland [address] [place] [address] Call Back Request Social History Tobacco Use [...] procedure done , pt was inform from [facility] where procedure was done to contact PCP. Pt will like to know if could take walks with no problem due to procedure. Estonian speaker documented in this encounter Plan of Treatment Upcoming Encounters Date Type Department Care Team (Late st Contact Info) Description 11/16/2024 9:00 AM EDT Office Visit [facility] [address] [place] [address] Name, MD Leland [address] [place] [address] documented as of this encounter Visit Diagnoses Not on filedocumented in this encounter Additional Health Concerns Assessment Noted Time PHQ-9 Depression Total Score: 0 09/14/19 24 3:10 PM EDT documented as of this encounter Care Teams Traffic Administrator Relationship Specialty Start Date End Date NameLeland MD [address] [place] [address] PCP - General Family Medicine 08/26/15 documented as of this encounter
--- OUTSIDE RECORDS SUMMARY | 2024-10-04 17:01 | XMS_ITS ---
Author [facility] Address [address] [place] [address] Care Team Providers Care Paving Rammer Name Role Phone Name Leland MIMS Primary Care Provider Unavailabl e Black, Yaquelin Unavailable [phone] PericNalini addison Unavailable [phone] Allergies No Known Allergies REASON FOR VISIT Painful nail(s) aggrevated by shoes causing difficulty standing/walking, Foot pain Medications Medication SIG (Take, Route, Frequency, Duration) Notes Start Date End Date Status Naproxen 500 MG 1 tablet Orally WITH FOOD Twice a day for 14 days 01/28/2023 Not-Taki ng Ciclopirox 0.77 % 1 application Keying Machine Operator ally Twice a day for [...] Piroxicam 20 MG TAKE 1 CAPSULE BY [facility] EVERY DAY WITH FOOD FOR [...] 05/21/2024 Encounters Encounter Location Date Provider Diagnosis [facility] [address] [address] 05/21/2024 Nalini Dyer Tinea unguium B35.1 ; [...] Up: 2 Months, Reason: Provider Name:Nalini addison, 11/15/2024 02:30:00 PM, [address] [facility], [place], [address], Procedure Notes * Category Sub-Category Detail Notes [...] * Rajeev MCLAUGHLINOB: 3 (59 yo M)Acc No.[id number]:05/21/2024 Progress Note Patient:?Steven MCLAUGHLIN Provider:?Nalini Dyer DPM :1965???Age:59 Y???Sex:Male Jose e:05/21/2024 Address:[address] [place], [place] [id number] Pcp:Leland Brandon MD Subjective: * Chief Complaints: [...] M77.52??? Plan: * Treatment: * Procedures:?Injection:?Sm. Joint, Bursa?80880, J0702 Injection - Left 2nd interspace sm/med [...] ( 0-1) out of 10.? * Procedure Codes:?80760 DEBRI DE NAIL, 6 OR MORE, Modifiers: XS 97070 DRAIN/INJECT, JOINT/BURSA, Modifiers: XS J0702 INJ BETAMETHSN [...] Dyer DPM Date:?02/2024 Generated for Luisa john/Faxing/eTransmitting on:?10/04/2024 05:01 PM EDT History and Physical Notes * [...]
== END 2024-10-04 14:47 | disposition home or self-care (01) ==
LOC: HO.HVS 14:27
PROVIDERS: PCP Internal Medicine Geriatric Medicine; Visit Provider Physician Assistant Surgical
DX: L03.116 Cellulitis of left lower limb (principal)
CPT/HCPCS: 99214

== ENCOUNTER → 2024-10-04 14:26 | Outpatient (BNVA) | payer OTHER, SELFPAY | PROVIDERS: PCP Internal Medicine Geriatric Medicine; Visit Provider Physician Assistant Surgical | DX: L03.116 Cellulitis of left lower limb (principal) | CPT/HCPCS: 99212 ==

== ENCOUNTER 2024-10-16 14:16 | Outpatient (REF) | payer OTHER, SELFPAY ==
[2024-10-16 14:59] LABS: MANUAL DIFF FLAG NO
[2024-10-16 15:11] LABS: Basophils Percent Auto 0.1 % (0-2); Eosinophils Absolute Auto 0.1 X10*3/uL (0.0-0.4); Eosinophils Percent Auto 1.2 % (0-4); Hematocrit 39.8 % (42.0-52.0); Hemoglobin 12.7 g/dl (14.0-18.0); Imm Gran Abs Auto 0.06 X10*3/uL (0.00-0.03); Imm Gran Pct Auto 0.7 % (0.0-0.4); Lymphocytes Absolute Auto 1.4 X10*3/uL (1.2-4.9); Lymphocytes Percent Auto 15.1 % (20-40); Mean Corpuscular HGB Conc 31.9 g/dl (31.0-36.0); Mean Corpuscular Hemoglobin 30.7 pg (27.0-33.0); Mean Corpuscular Volume 96.1 fL (80.0-98.0); Mean Platelet Volume 10.2 fL (9.4-12.4); Monocytes Absolute Auto 0.8 X10*3/uL (0.1-1.2); Monocytes Percent Auto 8.4 % (2-11); Neutrophils Absolute Auto 6.8 x10*3/uL (2.0-8.3); Neutrophils Percent Auto 74.5 % (45-73); Platelet Count 213 X10*3/uL (160-400); Red Blood Count 4.14 X10*6/uL (4.60-5.80); Red Cell Distribution Width 14.4 % (11.0-16.0); White Blood Count 9.1 X10*3/uL (4.8-10.8)
[2024-10-16 15:39] LABS: Anion Gap 9 (12-20); Blood Urea Nitrogen 21 mg/dL (9-16); Calcium 9.1 mg/dL (8.4-10.2); Carbon Dioxide 33 mmol/L (22-29); Chloride 102 mmol/L (96-108); Estimated Glomerular Filt Rate > 60; Glucose Random 79 mg/dL (60-115); Potassium 4.4 mmol/L (3.3-5.1); Sodium 140 mmol/L (135-145)
[2024-10-16 15:47] LABS: Erythrocyte Sedimentation Rate 18 MM/HR (0-15)
--- OUTSIDE RECORDS SUMMARY | 2024-10-16 16:00 | XMS_ITS | Encounter Summary ---
Author Organization [email or web address] Address [address] [facility] 7t [place] [address] Care Team Providers Care Firmware Architect Name Role Phone Name, Leland MIMS Primary Care Provider [phone] Reason for Visit * Reason Onset Date Comments Nurse Triage 08/06/2024 Encounter Details Date Type Department Care Team ([facility] st Contact Info) Description 08/06/2024 Telephone [facility] [address] [place] [address] Name, MD Leland [address] [place] [address] Nurse Triage Social History Tobacco Use Types [...] 08/06/2024 3:03 PM EST Triage call with [facility] [place] [id number] Radha Pt is called several times and [...] 11/16/2024 9:00 AM EDT Office Visit [facility] [address] [place] [phone] Name, MD Leland [address] [place] [address] documented as of this encounter Visit Diagnoses Diagnosis Osteoarthritis of right ankle and foot Swelling of lower limb documented in this encounter Additional Health Concerns Assessment Noted Time PHQ-9 Depression Total Score: 0 09/14/19 24 3:10 PM EDT documented as of this encounter Care Teams Firmware Architect Relationship Specialty Start Date End Date Name, MD Leland [address] [place] [phone] PCP - General Family Medicine 08/26/15 documented as of this encounter
--- OUTSIDE RECORDS SUMMARY | 2024-10-16 16:00 | XMS_ITS | Encounter Summary ---
Author Organization [employer] Address [address] [facility] [address]t [place] [address] Care Team Providers Care Register Of Deeds Name Role Phone Name, Leland MIMS Primary Care Provider Reason for Visit * Reason Comments Med Refill Encounter Details Date Type Department Care Team ([facility] st Contact Info) Description 09/23/2023 Refill [facility] [address] [place] [address] Ila Lora MD [address] [place] [address] Social History Tobacco Use Types Packs/Day Years [...] 9:00 AM EDT Office Visit [facility] [address] [place] [address] Name, MD Leland [address] [place] [address] documented as of this encounter Visit Diagnoses Not on filedocumented in this encounter Additional Health Concerns Assessment Noted Time PHQ-9 Depression Total Score: 0 09/14/19 24 3:10 PM EDT documented as of this encounter Care Teams Register Of Deeds Relationship Specialty Start Date End Date NameLeland MD [address] [place] [phone] PCP - General Family Medicine 08/26/15 documented as of this encounter
--- OUTSIDE RECORDS SUMMARY | 2024-10-16 16:00 | XMS_ITS | Encounter Summary ---
Author Organization [employer] Address [address] [address] 7[address] [place] [address] Care Team Providers Care Professor Of Genetics Name Role Phone Name, Leland MIMS Primary Care Provider [phone] Encounter Details Date Type Department Care Team (Late st Contact Info) Description 03/24/2023 Telephone [facility] [address] [place], [place] [phone] Name, MD Leland [address] [place], [place] [phone] Social History Tobacco Use Types Packs/Day Years [...] advise PCP pt is currently admitted to [facility] and was found with blood clots to both legs. Any questions, contact pt at [phone] documented in this encounter Plan of Treatment Upcoming Encounters Date Type Department Care Team (Late st Contact Info) Description 11/16/2024 9:00 AM EDT Office Visit [facility] [address] [place] [phone] Name, MD Leland [address] [place] [address] documented as of this encounter Visit Diagnoses Not on filedocumented in this encounter Additional Health Concerns Assessment Noted Time PHQ-9 Depression Total Score: 0 09/07/19 23 1:16 PM EDT documented as of this encounter Care Teams Professor Of Genetics Relationship Specialty Start Date End Date Name, MD Leland [address] [place] [phone] PCP - General Family Medicine 08/26/15 documented as of this encounter
--- OUTSIDE RECORDS SUMMARY | 2024-10-16 16:00 | XMS_ITS | Encounter Summary ---
Author Organization [employer] Address [address] [facility] 7t [place] [address] Care Team Providers Care Property Disposal Officer Name Role Phone Name, Leland MIMS Primary Care Provider [phone] Reason for Visit * Reason Onset Date Comments Med Refill 07/28/2023 Encounter Details Date Type Department Care Team ([facility] st Contact Info) Description 07/28/2023 Telephone [facility] [address] [place] [address] Name, MD Leland [address] [place], [place] [phone] Med Refill Social History Tobacco Use Types [...] Vogt LPN - 07/28/2023 11:52 AM EST CONSULTING SALES EXECUTIVE checked 07/28/23 last filled on 06/17/23 refill 2/3 patient should have 1 refill left. * Telephone Encounter - Hailee Louie - 07/28/2023 11:08 AM EST TC from pt requesting medication refill. Medications needing refill : gabapentin (Neurontin) 800 MG tablet To be sent to: [facility] [place] - [address] [place] [address] documented in this encounter Plan of Treatment Upcoming Encounters Date Type Department Care Team (Late st Contact Info) Description 11/16/2024 9:00 AM EDT Office Visit [facility] [address] [place] [address] Name, MD Leland [address] [place] [address] documented as of this encounter Visit Diagnoses Not on filedocumented in this encounter Additional Health Concerns Assessment Noted Time PHQ-9 Depression Total Score: 0 09/07/19 23 1:16 PM EDT documented as of this encounter Care Teams Property Disposal Officer Relationship Specialty Start Date End Date Name, MD Leland [address] [place] [address] PCP - General Family Medicine 08/26/15 documented as of this encounter
--- OUTSIDE RECORDS SUMMARY | 2024-10-16 16:00 | XMS_ITS | Encounter Summary ---
Author Organization [employer] Address [address] [facility] 7t [place] [address] Care Team Providers Care Driving Teacher Name Role Phone Name, Leland MIMS Primary Care Provider [phone] Reason for Visit * Reason Onset Date Comments FYI 07/26/2024 Encounter Details Date Type Department Care Team ([facility] st Contact Info) Description 07/26/2024 Telephone [facility] [address] [place] [address] Name, MD Leland [address] [place] [address] FY Social History Tobacco Use Types Packs/Day [...] 8:17 AM EST Tc from Sol with [facility] stating that they contact Pt but he refused Both time and they are only allowed to try and offer the Services twice. So they said that they were not going to keep trying. If any questions contact Sol at [phone] documented in this encounter Plan of Treatment Upcoming Encounters Date Type Department Care Team (Late st Contact Info) Description 11/16/2024 9:00 AM EDT Office Visit [facility] [address] [place] [address] Name, MD Leland [address] [place] [address] documented as of this encounter Visit Diagnoses Not on filedocumented in this encounter Additional Health Concerns Assessment Noted Time PHQ-9 Depression Total Score: 0 09/14/19 24 3:10 PM EDT documented as of this encounter Care Teams Driving Teacher Relationship Specialty Start Date End Date Name, MD Leland [address] [place] [phone] PCP - General Family Medicine 08/26/15 documented as of this encounter
--- OUTSIDE RECORDS SUMMARY | 2024-10-16 16:00 | XMS_ITS | Encounter Summary ---
Author Organization [employer] Address [address] [facility] [address]t [place] [address] Care Team Providers Care Geoscientist Name Role Phone Name, Leland MIMS Primary Care Provider [phone] Reason for Visit * Reason Onset Date Comments Call Back Request 08/30/2024 Encounter Details Date Type Department Care Team ([facility] st Contact Info) Description 08/30/[address] [facility] [address] [place] [address] Name, MD Leland [address] [place] [address] Call Back Request Social History Tobacco Use [...] procedure done , pt was inform from [facility] where procedure was done to contact PCP. Pt will like to know if could take walks with no problem due to procedure. American speaker documented in this encounter Plan of Treatment Upcoming Encounters Date Type Department Care Team (Late st Contact Info) Description 11/16/2024 9:00 AM EDT Office Visit [facility] [address] [place] [address] Name, MD Leland [address] [place] [address] documented as of this encounter Visit Diagnoses Not on filedocumented in this encounter Additional Health Concerns Assessment Noted Time PHQ-9 Depression Total Score: 0 09/14/19 24 3:10 PM EDT documented as of this encounter Care Teams Geoscientist Relationship Specialty Start Date End Date Name, MD Leland [address] [place] [address] PCP - General Family Medicine 08/26/15 documented as of this encounter
--- OUTSIDE RECORDS SUMMARY | 2024-10-16 16:00 | XMS_ITS | Encounter Summary ---
Author Organization [employer] Address 75 [facility] 7t [place] [address] Care Team Providers Care Technical Instructor Course Developer Name Role Phone Name, Leland MIMS Primary Care Provider [phone] Reason for Visit * Reason Onset Date Comments Referral 07/20/2022 Encounter Details Date Type Department Care Team ([facility] st Contact Info) Description 07/20/2022 Telephone [facility] MEDICINE 230 [place], [place] [phone] Name, MD Leland 230 [place] [address] Referral Social History Tobacco Use Types Packs/Day [...] Huber Garcia - 07/20/2022 10:13 AM EST aMrva calling [facility] for new or existing referrals for [facility] Neurology, [address], [place] [address], Phone #: , Reason for referral is Chronic Severe pain left foot. Marva advised pt has an X-ray done and patient does have the symptom of Chronic pain. Advised Marva with [facility] will forward to team nurse for new referral and disability benefits specialist for existing referral. Please call Marva at [phone] documented in this encounter Plan of Treatment Upcoming Encounters Date Type Department Care Team (Late st Contact Info) Description 11/16/2024 9:00 AM EDT Office Visit [facility] MEDICINE [address] [place] [phone] Name, MD Leland [address] [place] [phone] documented as of this encounter Visit Diagnoses Not on filedocumented in this encounter Care Teams Technical Instructor Course Developer Relationship Specialty Start Date End Date Name, MD Leland [address] [place] [address] PCP - General Family Medicine 08/26/15 documented as of this encounter
--- OUTSIDE RECORDS SUMMARY | 2024-10-16 16:00 | XMS_ITS | Encounter Summary ---
Author Organization [employer] Address 75 [facility] 7t [place] [address] Care Team Providers Care Social Media Director Name Role Phone Name, Leland MIMS Primary Care Provider [phone] Reason for Visit * Reason Onset Date Comments Hospital Follow-up 08/17/2024 Encounter Details Date Type Department Care Team ([facility] st Contact Info) Description 08/17/2024 Telephone [facility] MEDICINE 230 [place] [address] Name, MD Leland 230 [place], [place] [phone] Hospital Follow-up Social History Tobacco Use Types [...] from pt requesting a HDF appt. Hospital: [facility] Date of admission: 08/12/24 Discharge date: 08/16/24 Diagnosed: blood clot in left leg documented in this encounter Plan of Treatment Upcoming Encounters Date Type Department Care Team (Late st Contact Info) Description 11/16/2024 9:00 AM EDT Office Visit [facility] MEDICINE 230 [place] [address] Name, MD Leland 230 [place] [address] documented as of this encounter Visit Diagnoses Not on filedocumented in this encounter Additional Health Concerns Assessment Noted Time PHQ-9 Depression Total Score: 0 09/14/19 24 3:10 PM EDT documented as of this encounter Care Teams Social Media Director Relationship Specialty Start Date End Date NameLeland MD 230 [place] [address] PCP - General Family Medicine 08/26/15 documented as of this encounter
--- OUTSIDE RECORDS SUMMARY | 2024-10-16 16:00 | XMS_ITS | Clinical Summary ---
Author Organization [address] [facility] Address 175 [place] [address] Phone Care Team Providers Care Top Hat Body Maker Name Role Phone Name, Leland MIMS Primary Care Provider Allergies No known active allergies Medications DICLOFENAC [...] ID:[id number] Group ID:[id number] Type:Not on file Address: [place] [address] [place] [address] Care Teams Top Hat Body Maker Relationship Specialty Start Date End Date Name, MD Leland [address] [place] [address] PCP - General 01/06/15
--- OUTSIDE RECORDS SUMMARY | 2024-10-16 16:00 | XMS_ITS | Encounter Summary ---
Author Organization [employer] Address 75 [facility] 7t [place] [address] Care Team Providers Care Technicians And Trades Workers Name Role Phone Name, Leland MIMS Primary Care Provider [phone] Reason for Visit * Reason Comments Med Refill Encounter Details Date Type Department Care Team ([facility] Contact Info) Description 10/22/[address] [facility] MEDICINE [address] [place] [address] [phone] Name, MD Leland [address] [place] [phone] Insomnia, unspecified type Social History Tobacco Use [...] Upcoming Encounters Date Type Department Care Team ([facility] Contact Info) Description 11/16/2024 9:00 AM EDT Office Visit [facility] MEDICINE 230 [place] [address] Name, MD Leland 230 [place] [address] documented as of this encounter Visit Diagnoses Diagnosis Insomnia, unspecified type documented in this encounter Additional Health Concerns Assessment Noted Time PHQ-9 Depression Total Score: 0 09/07/19 23 1:16 PM EDT documented as of this encounter Care Teams Technicians And Trades Workers Relationship Specialty Start Date End Date Name, MD Leland 230 [place] [address] PCP - General Family Medicine 08/26/15 documented as of this encounter
--- OUTSIDE RECORDS SUMMARY | 2024-10-16 16:00 | XMS_ITS | Encounter Summary ---
Author Organization [employer] Address 75 [facility] 7t [place] [address] Care Team Providers Care Railroad Purchasing Agent Name Role Phone Name, Leland MIMS Primary Care Provider [phone] Reason for Visit * Reason Comments Med Refill Encounter Details Date Type Department Care Team (Late Contact Info) Description 02/21/2023 Refill [facility] MEDICINE [address] [place] [address] [phone] NameLeland MD [address] [place] [address] [phone] Insomnia, unspecified type Social History Tobacco Use [...] Upcoming Encounters Date Type Department Care Team ([facility] Contact Info) Description 11/16/2024 9:00 AM EDT Office Visit [facility] MEDICINE [address] [place] [address] [phone] Name, MD Leland [address] [place] [address] [phone] documented as of this encounter Visit Diagnoses Diagnosis Insomnia, unspecified type documented in this encounter Additional Health Concerns Assessment Noted Time PHQ-9 Depression Total Score: 0 09/07/19 23 1:16 PM EDT documented as of this encounter Care Teams Railroad Purchasing Agent Relationship Specialty Start Date End Date Name, MD Leland 230 [place] [address] PCP - General Family Medicine 08/26/15 documented as of this encounter
--- OUTSIDE RECORDS SUMMARY | 2024-10-16 16:00 | XMS_ITS | Encounter Summary ---
Author Organization [employer] Address 75 [facility] 7t [place] [address] Care Team Providers Care Golf Course Keeper Name Role Phone Name, Leland MIMS Primary Care Provider [phone] Encounter Details Date Type Department Care Team ([facility] Contact Info) Description 11/22/[address] [phone] Name, MD Leland [address] [place] [phone] Social History Tobacco Use Types Packs/Day Years [...] Type Department Care Team ([facility] Contact Info) Description 11/16/2024 9:00 AM EDT Office Visit [facility] MEDICINE [address] [place] [address] Name, MD Leland 230 [place] [address] documented as of this encounter Visit Diagnoses Not on filedocumented in this encounter Additional Health Concerns Assessment Noted Time PHQ-9 Depression Total Score: 0 09/07/19 23 1:16 PM EDT documented as of this encounter Care Teams Golf Course Keeper Relationship Specialty Start Date End Date Name, MD Leland [address] [place] [address] PCP - General Family Medicine 08/26/15 documented as of this encounter
--- OUTSIDE RECORDS SUMMARY | 2024-10-16 16:00 | XMS_ITS | Encounter Summary ---
Author Organization [employer] Address 75 [facility] 7t [place] [address] Care Team Providers Care Multimedia Coordinator Name Role Phone Name, Leland MIMS Primary Care Provider [phone] Reason for Visit * Reason Comments Med Refill Encounter Details Date Type Department Care Team ([facility] st Contact Info) Description 06/20/[address] [facility] MEDICINE 230 [place] [address] Name, MD Leland 230 [place], [place] [phone] Insomnia, unspecified type Social History Tobacco Use [...] 11/16/2024 9:00 AM EDT Office Visit [facility] MEDICINE [address] [place] [address] Name, MD Leland [address] [place] [address] documented as of this encounter Visit Diagnoses Diagnosis Insomnia, unspecified type documented in this encounter Additional Health Concerns Assessment Noted Time PHQ-9 Depression Total Score: 0 09/07/19 23 1:16 PM EDT documented as of this encounter Care Teams Multimedia Coordinator Relationship Specialty Start Date End Date Name, MD Leland [address] [place] [address] PCP - General Family Medicine 08/26/15 documented as of this encounter
--- OUTSIDE RECORDS SUMMARY | 2024-10-16 16:00 | XMS_ITS | Encounter Summary ---
Author Organization [employer] Address 75 [facility] 7t [place] [address] Care Team Providers Care Safety Tech Name Role Phone Name, Leland MIMS Primary Care Provider [phone] Reason for Visit * Reason Onset Date Comments Med Refill 01/02/2024 Encounter Details Date Type Department Care Team ([facility] st Contact Info) Description 01/02/2024 Telephone [facility] MEDICINE 230 [place] [address] Name, MD Leland 230 [place], [place] [phone] Med Refill Social History Tobacco Use Types [...] 10 MG tablet To be sent to: [facility] - [place], [place] - [address] [place] [address] documented in this encounter Plan of Treatment Upcoming Encounters Date Type Department Care Team (Late st Contact Info) Description 11/16/2024 9:00 AM EDT Office Visit [facility] MEDICINE 230 [place] [address] Name, MD Leland 230 [place] [address] documented as of this encounter Visit Diagnoses Not on filedocumented in this encounter Additional Health Concerns Assessment Noted Time PHQ-9 Depression Total Score: 0 09/14/19 24 3:10 PM EDT documented as of this encounter Care Teams Safety Tech Relationship Specialty Start Date End Date Name, MD Leland 230 [place] [address] PCP - General Family Medicine 08/26/15 documented as of this encounter
--- OUTSIDE RECORDS SUMMARY | 2024-10-16 16:00 | XMS_ITS | Encounter Summary ---
Author Organization [employer] Address 75 [facility] 7t [place] [address] Care Team Providers Care Resort Desk Clerk Name Role Phone Name, Leland MIMS Primary Care Provider [phone] Reason for Visit * Reason Onset Date Comments Call Back Request 10/05/2024 Encounter Details Date Type Department Care Team ([facility] st Contact Info) Description 10/05/2024 Telephone [facility] MEDICINE 230 [place] [address] Name, MD Leland 230 [place] [address] Call Back Request Social History Tobacco Use [...] 10/05/2024 4:41 PM EDT Triage call with [facility] Sleep Scientist [place] [id number] Pt is calling in regards to concerns that Pt is diabetic. Pt does have dx of impaired glucose intolerance. Pt reports an open area behind left knee that has never healed and an ulcer . It is unclearto sba underwriter if this is a wound that [...] 10/05/2024 4:01 PM EDT Called pt. Via [email or web address] credit reporting clerk [id number] [address] Fraga. Triage nurse notified me that she is currently on phone with pt. No answer as pt. Is on other line. * Telephone Encounter - Loi Cobos - 10/05/2024 3:40 PM EDT TC from pt returning call regarding prior message. Contact pt at [phone] * Telephone Encounter - Vic Finnegan - [...] has not yet been contacted by the facility.Media Aid does not see referral in system; pt states that his condition is worsening. ( Denied triage ) Please return call [phone] (MALAY) documented in this encounter Plan of Treatment Upcoming Encounters Date Type Department Care Team (Late st Contact Info) Description 11/16/2024 9:00 AM EDT Office Visit [facility] MEDICINE [address] [facility] [place] [address] Name, MD Leland 230 [place] [address] documented as of this encounter Visit Diagnoses Not on filedocumented in this encounter Additional Health Concerns Assessment Noted Time PHQ-9 Depression Total Score: 0 09/14/19 24 3:10 PM EDT documented as of this encounter Care Teams Resort Desk Clerk Relationship Specialty Start Date End Date Name, MD Leland [place] [facility] [place] [address] PCP - General Family Medicine 08/26/15 documented as of this encounter
--- OUTSIDE RECORDS SUMMARY | 2024-10-16 16:00 | XMS_ITS | Encounter Summary ---
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 5.1.25 documented in this encounter Plan of Treatment Upcoming Encounters Date Type Department Care Team (Late st Contact Info) Description 11/16/2024 9:00 AM EDT Office Visit [facility] MEDICINE 230 [place] [address] NameLeland MD 230 [place] [address] documented as of this encounter Visit Diagnoses Diagnosis Insomnia, unspecified type documented in this encounter Additional Health Concerns Assessment Noted Time PHQ-9 Depression Total Score: 0 09/14/19 24 3:10 PM EDT documented as of this encounter Care Teams Neck Band Operator Relationship Specialty Start Date End Date NameLeland MD 230 [place] [address] PCP - General Family Medicine 08/26/15 documented as of this encounter
--- OUTSIDE RECORDS SUMMARY | 2024-10-16 16:00 | XMS_ITS | Encounter Summary ---
Author Organization [employer] Address [address] [facility] [address] 7t [place] [address] Care Team Providers Care Sr Solutions Consultant Name Role Phone Name, Leland MIMS Primary Care Provider [phone] Reason for Visit * Reason Comments Med Refill Encounter Details Date Type Department Care Team ([facility] st Contact Info) Description 07/25/2024 Refill [facility] 230 [place], [place] [phone] Stacey Wade MD 230 [place] [address] Lumbago with sciatica, right side Social History [...] Description 11/16/2024 9:00 AM EDT Office Visit [facility] MEDICINE 230 [place] [address] Name, MD Leland [address] [place] [address] documented as of this encounter Visit Diagnoses Diagnosis Lumbago with sciatica, right side documented in this encounter Additional Health Concerns Assessment Noted Time PHQ-9 Depression Total Score: 0 09/14/19 24 3:10 PM EDT documented as of this encounter Care Teams Sr Solutions Consultant Relationship Specialty Start Date End Date Name, MD Leland 230 [place] [address] PCP - General Family Medicine 08/26/15 documented as of this encounter
--- OUTSIDE RECORDS SUMMARY | 2024-10-16 16:00 | XMS_ITS | Encounter Summary ---
Author Organization [employer] Address 75 [facility] 7t [place] [address] Care Team Providers Care Learning Services Coordinator Name Role Phone Name, Leland MIMS Primary Care Provider [phone] Encounter Details Date Type Department Care Team [...] Description 11/16/2024 9:00 AM EDT Office Visit [facility] MEDICINE 230 [place] [address] Name, MD Leland 230 [place] [address] documented as of this encounter Procedures Procedure Name Priority Date/Time Associated Diagnosis Comments CBC WITH AUTO DIFFERENTIAL Routine 10/16/2024 2:57 PM EDT SED RATE BY MODIFIED WESTERGREN Routine 10/16/2024 2:57 PM EDT BASIC METABOLIC PANEL Routine 10/16/2024 2:57 PM EDT documented in this encounter Results * (ABNORMAL) Sed Rate by Modified Westergren (10/16/2024 2:57 PM EDT) Erythrocyte Sedimentation Rate 18(H) 0 - 15 MM/HR [facility] Comment:Patients with polycy themia and many hemoglobin abnormalitiesmay have depressed sed rates whereas patients with anemiamay have elevated sed rates. 10/16/2024 2:57 PM EDT 10/16/2024 2:57 PM EDT us Generic External Data Provider LAB BLOOD ORDERAB LES Final Result Performing Organization Address [facility] Co de Phone Number [facility] [address] [place] [phone] * (ABNORMAL) Basic Metabolic Panel (10/16/2024 2:57 PM EDT) [facility] Sodium 140 135 - 145 mmol/L [facility] Potassium 4.4 3.3 - 5.1 mmol/L [facility] Chloride 102 96 - 108 mmol/L [facility] Carbon Dioxide 33(H) 22 - 29 mmol/L [facility] Anion Gap 9(L) 12 - 20 [facility] Urea Nitrogen (BUN) 21(H) 9 - 16 mg/dL [facility] Creatinine, Serum 0.75 0.5 - 1.4 mg/dL [facility] Estimated Glomerular Filt Rate >60 [facility] Comment:Chronic Kidney Disea se: Estimated GFR < 60 mL/min/[id number] Kidney Disease: Estimated GFR < 15 mL/min/1.73m2 Glucose 79 60 - 115 mg/dL [facility] Calcium 9.1 8.4 - 10.2 mg/dL [facility] 10/16/2024 2:57 PM EDT 10/16/2024 2:57 PM EDT Generic External Data Provider LAB BLOOD ORDERAB LES Final Result Performing Organization Address [facility] Co de Phone Number [facility] [address] [place] [phone] * (ABNORMAL) CBC auto differential (10/16/2024 2:57 PM EDT) [facility] White Blood Count 9.1 4.8 - 10.8 X10*3/uL [facility] Red Blood Count 4.14(L) 4.60 - 5.80 X10*6/uL [facility] Hemoglobin 12.7(L) 14.0 - 18.0 g/dl [facility] Hematocrit 39.8(L) 42.0 - 52.0 % [facility] Mean Corpuscular Volume 96.1 80.0 - 98.0 fL [facility] Mean Corpuscular Hemoglobin 30.7 27.0 - 33.0 pg [facility] Mean Corpuscular HGB Conc 31.9 31.0 - 36.0 g/dl [facility] Red Cell Distribution Width 14.4 11.0 - 16.0 % [facility] Platelet Count 213 160 - 400 X10*3/uL [facility] Mean Platelet Volume 10.2 9.4 - 12.4 fL [facility] Neutrophils Percent Auto 74.5(H) 45 - 73 % [facility] Imm Gran Pct Auto 0.7(H) 0.0 - 0.4 % [facility] Lymphocytes Percent Auto 15.1(L) 20 - 40 % [facility] Monocytes Percent Auto 8.4 2 - 11 % [facility] Eosinophils Percent Auto 1.2 0 - 4 % [facility] Basophils Percent Auto 0.1 0 - 2 % [facility] NRBC Pct Auto 0.0 0.0 - 0.2 /100WBC [facility] Neutrophils Absolute Auto 6.8 2.0 - 8.3 x10*3/uL [facility] Imm Gran Abs Auto 0.06(H) 0.00 - 0.03 X10*3/uL [facility] Lymphocytes Absolute Auto 1.4 1.2 - 4.9 X10*3/uL [facility] Monocytes Absolute Auto 0.8 0.1 - 1.2 X10*3/uL [facility] Eosinophils Absolute Auto 0.1 0.0 - 0.4 X10*3/uL [facility] Basophils Absolute Auto 0.0 0.0 - 0.2 X10*3/uL [facility] NRBC Abs Auto 0.000 0.0 - 0.012 X10*3/uL [facility] 10/16/2024 2:57 PM EDT 10/16/2024 2:57 PM EDT us Generic External Data Provider LAB BLOOD ORDERAB LES Final Result [facility] [address] [place] [address] [phone] documented in this encounter Visit Diagnoses Not on filedocumented in this encounter Additional Health Concerns Assessment Noted Time PHQ-9 Depression Total Score: 0 09/14/19 24 3:10 PM EDT documented as of this encounter Care Teams Learning Services Coordinator Relationship Specialty Start Date End Date Name, MD Leland [address] [place] [address] PCP - General Family Medicine 08/26/15 documented as of this encounter
--- OUTSIDE RECORDS SUMMARY | 2024-10-16 16:00 | XMS_ITS | Encounter Summary ---
Author Organization [employer] Address 75 [facility] 7t [place] [address] Care Team Providers Care Production Tool Engineer Name Role Phone Name, Leland MIMS Primary Care Provider [phone] Reason for Visit * Reason Onset Date Comments Med Refill 05/25/2024 Encounter Details Date Type Department Care Team ([facility] st Contact Info) Description 05/25/2024 Telephone [facility] MEDICINE 230 [place] [address] Name, MD Leland [address] [place] [address] Med Refill Social History Tobacco Use Types [...] 4 MG tablet To be sent to: [facility] documented in this encounter Plan of Treatment Upcoming Encounters Date Type Department Care Team (Late st Contact Info) Description 11/16/2024 9:00 AM EDT Office Visit [facility] MEDICINE [address] [place] [phone] Name, MD Leland [address] [place] [address] documented as of this encounter Visit Diagnoses Not on filedocumented in this encounter Additional Health Concerns Assessment Noted Time PHQ-9 Depression Total Score: 0 09/14/19 24 3:10 PM EDT documented as of this encounter Care Teams Production Tool Engineer Relationship Specialty Start Date End Date Name, MD Leland [address] [place] [address] PCP - General Family Medicine 08/26/15 documented as of this encounter
--- OUTSIDE RECORDS SUMMARY | 2024-10-16 16:00 | XMS_ITS | Encounter Summary ---
Author Organization [employer] Address [address] [facility] [address] 7t [place] [address] Care Team Providers Care Client Technologies Specialist Name Role Phone Name, Leland MIMS Primary Care Provider [phone] Encounter Details Date Type Department Care Team (Late st Contact Info) Description 07/19/2023 Abstract [facility] MEDICINE 230 [place] [address] Name, MD Leland [address] [place], [place] [phone] Social History Tobacco Use Types Packs/Day Years [...] 9:00 AM EDT Office Visit [facility] MEDICINE [address] [place] [address] NameLeland MD [address] [place] [address] documented as of this encounter Procedures Procedure [...] documented as of this encounter Care Teams Client Technologies Specialist Relationship Specialty Start Date End Date Name, MD Leland [address] [place] [address] PCP - General Family Medicine 08/26/15 documented as of this encounter
--- OUTSIDE RECORDS SUMMARY | 2024-10-16 16:00 | XMS_ITS | Encounter Summary ---
Author Organization [email or web address] Address [address] [facility] 7t [place] [address] Care Team Providers Care Staffing Director Name Role Phone Name, Leland MIMS Primary Care Provider [phone] Reason for Visit * Reason Onset Date Comments Verbal Order 07/24/2024 Encounter Details Date Type Department Care Team ([facility] st Contact Info) Description 07/24/2024 Telephone [facility] [address] [place] [address] Name, MD Leland [address] [place] [address] Verbal Order Social History Tobacco Use Types [...] EST Telephone call returned to Katey at [facility], spoke with Katey. Gave verbal orders for VNA care. Asked when last office visit was, advised it was 07/06/24 with PCP and also pt was seen in [facility] walk in clinic on 07/14/24. Katey verbalized understanding, no further questions. * Telephone Encounter - João Bhatt - 07/24/2024 4:34 PM EST Tc from Emelia with [facility] requesting verbal orders. Please contact Emelia at [phone] Opt 2. documented in this encounter Plan of Treatment Upcoming Encounters Date Type Department Care Team (Late st Contact Info) Description 11/16/2024 9:00 AM EDT Office Visit [facility] MEDICINE [address] [place] [phone] Name, MD Lealnd [address] [place] [address] documented as of this encounter Visit Diagnoses Not on filedocumented in this encounter Additional Health Concerns Assessment Noted Time PHQ-9 Depression Total Score: 0 09/14/19 24 3:10 PM EDT documented as of this encounter Care Teams Staffing Director Relationship Specialty Start Date End Date Name, MD Leland [address] [place] [address] PCP - General Family Medicine 08/26/15 documented as of this encounter
--- OUTSIDE RECORDS SUMMARY | 2024-10-16 16:01 | XMS_ITS | Referral Summary ---
Author Organization [facility] Address [address] [place] [address] Care Team Providers Care Driver Examiner Name Role Phone No, Pcp Primary Care [...] Treatment Not on file Insurance Care Teams Driver Examiner Relationship Specialty Start Date End Date No, Pcp HIREN PCP - General 01/29/22
--- OUTSIDE RECORDS SUMMARY | 2024-10-16 16:01 | XMS_ITS | Clinical Summary ---
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 Patient follows at [facility] and has been treated with injections [...] DEPARTMENT Provider, Generic External Data 10/11/2024 Refill [facility] [address] [place], [place] [phone] Leland Brandon MD Insomnia, unspecified type 10/09/2024 Telephone [facility] [address] [place] [address] Kelsi Huff, ANNITA 10/05/2024 Telephone [facility] [address] [place] [address] Leland Brandon MD Call Back Request 09/20/2024 Telephone [facility] [address] [place] [address] Lleand Brandon MD Med Refill; NTTS 09/19/[address] [address] Leland Brandon MD Durable Medical Equipment 09/17/2024 10:15 AM EDT Office Visit [facility] [address] [place] [phone] Leland Brandon MD Ulcer of left lower leg associated with varicose veins (CMS/HCC) (Primary Dx); Chronic deep vein thrombosis (DVT) of left lower extremity, unspecified vein (CMS/HCC); Chronic pain syndrome 09/17/2024 Travel 09/12/2024 Refill [facility] [address] [place] [address] Leland Brandon MD Insomnia, unspecified type 09/10/2024 Patient Outreach [facility] [address] [place] [address] Leland Brandon MD Pre-visit Planning (SDOH negative, Tobacco screening negative.) 09/06/2024 Refill [facility] [address] [place] [address] Leland Brandon MD Low back pain due to bilateral sciatica 08/31/2024 Orders Only [facility] External Provider, [facility] 08/30/2024 10:00 AM EDT Office Visit [facility] [address] [place] [address] Leland Brandon MD Acute deep vein thrombosis (DVT) of left lower extremity, unspecified vein (CMS/HCC) (Primary Dx); Ulcer of left lower leg associated with varicose veins (CMS/HCC); Chronic midline low back pain with sciatica, sciatica laterality unspecified 08/30/2024 Telephone [facility] [address] [place] [address] Leland Brandon MD Call Back Request 08/30/2024 Travel 08/27/2024 Telephone [facility] [address] [place] [address] Leland Brandon MD Nurse Triage 08/20/2024 3:20 PM EDT Office Visit [facility] [address] [place] [address] Leland Brandon MD Left leg pain (Primary Dx); Presence of IVC filter; Recurrent deep vein thrombosis (CMS/HCC); Cellulitis of left lower extremity; Ulcer of left lower leg associated with varicose veins (CMS/HCC); Venous stasis dermatitis of both lower extremities; Hand eczema 08/17/2024 Patient Outreach [facility] [address] [place] [address] Leland Brandon MD Transition Of Care (Tcm) (HDF scheduled) 08/17/2024 [place] [address] Leland Brandon MD Hospital Follow-up 08/16/2024 [place] [address] Leland Brandon MD Insomnia, unspecified type 08/07/2024 1:15 [place] [address] Stacey Wade MD Cellulitis of left lower extremity (Primary Dx); Neurogenic claudication due to lumbar spinal stenosis 08/07/2024 Travel 08/06/2024 [place] [address] Leland Brandon MD Nurse Triage 08/01/2024 2:15 PM [place] [address] Leland Brandon MD Cellulitis, unspecified cellulitis site (Primary Dx); Chronic pain syndrome; Tremor of both hands 07/26/2024 [place] [address] Leland Brandon MD FYI 07/25/2024 Refill [facility] [address] [place] [address] Stacey Wade MD Lumbago with sciatica, right side 07/24/[address] [address] Leland Brandon MD REQUEST ER NOTES; Med Refill (Patient walked in requesting med refill for Dexamethasone 4mg patient stated he went to pharmacy to get medication and theres no medication in the pharmacy ) 07/24/2024 [place] [address] Leland Brandon MD Verbal Order 07/24/2024 Telephone [facility] [address] [place] [address] NameLeland MD Nurse Triage 07/20/2024 Orders Only [facility] [address] [place] [address] NameLeland MD Severe low back pain (Primary [...] AM EDT Office Visit [facility] [address] [place] [address] Name, MD Leland [facility] [place] [address] Health Maintenance Due Date Last Done Comments [...] Procedure Name Priority Date/Time Associated Diagnosis Comments SED RATE BY MODIFIED MARSERGREN Routine 10/16/2024 2:57 PM EDT BASIC METABOLIC PANEL Routine 10/16/2024 2:57 PM EDT CBC WITH AUTO DIFFERENTIAL Routine 10/16/2024 2:57 [...] Blood Count 9.1 4.8 - 10.8 X10*3/uL [facility] Red Blood Count 4.14(L) 4.60 - 5.80 X10*6/uL [facility] Hemoglobin 12.7(L) 14.0 - 18.0 g/dl [facility] Hematocrit 39.8(L) 42.0 - 52.0 % [facility] Mean Corpuscular Volume 96.1 80.0 - 98.0 fL [facility] Mean Corpuscular Hemoglobin 30.7 27.0 - 33.0 pg [facility] Mean Corpuscular HGB Conc 31.9 31.0 - 36.0 g/dl [facility] Red Cell Distribution Width 14.4 11.0 - 16.0 % [facility] Platelet Count 213 160 - 400 X10*3/uL [facility] Mean Platelet Volume 10.2 9.4 - 12.4 fL [facility] Neutrophils Percent Auto 74.5(H) 45 - 73 % [facility] Imm Gran Pct Auto 0.7(H) 0.0 - 0.4 % [facility] Lymphocytes Percent Auto 15.1(L) 20 - 40 % [facility] Monocytes Percent Auto 8.4 2 - 11 % [facility] Eosinophils Percent Auto 1.2 0 - 4 % [facility] Basophils Percent Auto 0.1 0 - 2 % [facility] NRBC Pct Auto 0.0 0.0 - 0.2 /100WBC [facility] Neutrophils Absolute Auto 6.8 2.0 - 8.3 x10*3/uL [facility] Imm Gran Abs Auto 0.06(H) 0.00 - 0.03 X10*3/uL [facility] Lymphocytes Absolute Auto 1.4 1.2 - 4.9 X10*3/uL [facility] Monocytes Absolute Auto 0.8 0.1 - 1.2 X10*3/uL [facility] Eosinophils Absolute Auto 0.1 0.0 - 0.4 X10*3/uL [facility] Basophils Absolute Auto 0.0 0.0 - 0.2 X10*3/uL [facility] NRBC Abs Auto 0.000 0.0 - 0.012 X10*3/uL [facility] 10/16/2024 2:57 PM EDT 10/16/2024 2:57 PM EDT Generic External Data Provider LAB BLOOD ORDERAB LES Final Result Performing Organization Address [facility] Co de Phone Number [facility] [address] [place] [address] [phone] * (ABNORMAL) Sed Rate by Modified Westergren (10/16/2024 2:57 PM EDT) Erythrocyte Sedimentation Rate 18(H) 0 - 15 MM/HR [facility] Comment:Patients with polycy themia and many hemoglobin abnormalitiesmay have depressed sed rates whereas patients with anemiamay have elevated sed rates. 10/16/2024 2:57 PM EDT 10/16/2024 2:57 PM EDT Generic External Data Provider LAB BLOOD ORDERAB LES Final Result Performing Organization Address [facility] Co de Phone Number [facility] [address] [place] [address] [phone] * (ABNORMAL) Basic Metabolic Panel (10/16/2024 2:57 PM EDT) Sodium 140 135 - 145 mmol/L [facility] Potassium 4.4 3.3 - 5.1 mmol/L [facility] Chloride 102 96 - 108 mmol/L [facility] Carbon Dioxide 33(H) 22 - 29 mmol/L [facility] Anion Gap 9(L) 12 - 20 [facility] Urea Nitrogen (BUN) 21(H) 9 - 16 mg/dL [facility] Creatinine, Serum 0.75 0.5 - 1.4 mg/dL [facility] Estimated Glomerular Filt Rate >60 [facility] Comment:Chronic Kidney Disea se: Estimated GFR < 60 mL/min/[id number] Kidney Disease: Estimated GFR < 15 mL/min/1.73m2 Glucose 79 60 - 115 mg/dL [facility] Calcium 9.1 8.4 - 10.2 mg/dL [facility] 10/16/2024 2:57 PM EDT 10/16/2024 2:57 PM EDT us Generic External Data Provider LAB BLOOD ORDERAB LES Final Result [facility] [address] [place] [address] [phone] * Referral to Neurology (09/25/2024) us Leland Brandon MD OUTPATIENT REFERRAL ORDERABLES E dited Result - Final * XR Lumbar Spine Complete 4+ Views (08/31/2024 2:06 PM EDT) Anatomical Region Laterality Modality Spine, L-spine Radiographic Rasheeda ging 08/31/2024 2:06 PM EDT Narrative 09/03/2024 1:46 PM EDT ? [facility] ? [address] ?[place] [address] ?XRay Report ? Signed ? Patient: Steven Novak ?MR#: [id number] ?? [id number] ? : 1965 ?Acct:[id number] ? Age/Sex: 59 / M ?ADM Date: 08/31/24 ? Loc: HO.HOSX ? Attending Dr: Francisco MCKEON ? Ordering Physician: Francisco Velez ?? Date of Service: 08/31/24 ?? Procedure(s): XR lumbar spine 4V min ?? Accession Number(s): [id number] ? cc: Francisco Velez; Leland Brandon MD [...] ??Cristian Herron MD ??09/03/2024 01:43 PM EDT ? Dictated By: ?Cristian Herron MD ? Signed By: ?<Electronically signed by Cristian Herron MD in OV> ?09/03/24 1343 ? DD/ 1406 ? TD/TT: 08/31/24 1410 ? Drywall Contractor: ? Procedure Note Mery Seaed - 09/03/2024 [facility] [address] [place] [address] [address] [place] [address] XRay Report Signed Patient: Michele Novak#: M [id number] : 1965Acct:[id number] Age/Sex: 59 / MADM Date: 08/31/24 Loc: HO.HOSX Attending Dr: Francisco MCKEON Ordering Physician: Francisco Velez Date of Service: 08/31/24 Procedure(s): XR lumbar spine 4V min Accession Number(s): [id number] cc: Francisco Velez; Name,Leland MIMS EXAMINATION: XR [...] Cristian Herron MD 09/03/2024 01:43 PM EDT Dictated By: Cristian Herron MD Signed By: <Electronically signed by Cristian Herron MD in OV> 09/03/24 1343 DD/ 1406 TD/TT: 08/31/24 1410 Drywall Contractor: [facility] External Provider IMG XR PROCEDURES Final Result * TSH W/Reflex to FT4 (08/01/2024 3:05 PM EST) TSH reflex Free T4 0.69 0.32 - 4.0 uIU/mL [facility] Blood Venous blood specimen / Unknown 08/01/2024 3:05 PM EST 08/01/2024 4:20 PM EST us Leland Brandon MD LAB BLOOD ORDERABLES Final Resul t [facility] [address] [place] [phone] * Hepatitis C Antibody with Reflex to HCV, RNA, Quantitative, Real-Time PCR (10/14/2023 11:05 AM EDT) Hepatitis C Antibody Nonreactive Nonreactive [facility] Comment:Antibodies to HCV no t detected; does not exclude early acuteHCV infection. Blood Venous blood specimen / Unknown 10/14/2023 11:05 AM EDT 10/14/2023 1:15 PM EDT us Leland Brandon MD LAB BLOOD ORDERABLES Final Resul t Performing Organization Address City/[facility]/ZIP Co de Phone Number [facility] [address] [place] [address] [phone] * HIV-1/2 Antigen and Antibodies, Fourth Generation, with Reflexes (10/14/2023 11:05 AM EDT) HIV AB/AG Nonreactive Nonreactive [facility] Comment:HIV-1 p24 Ag and/or HIV-1/HIV-2 Ab not detected.A test result that is nonreactive does not exclude thepossibility of exposure to or infection with HIV-1 and/orHIV-2. Nonreactive results in this assay for individualswith prior exposure to HIV-1 and/or HIV-2 may be due toantigen and antibody levels that are below the limit ofdetection of this assay.The [employer] HIV Ag/Ab Combo assay result andsupplemental assay results should be interpreted inconjunction with the patient's clinical presentation,history and other laboratory results. If the results areinconsistent with clinical evidence, additional testing issuggested to confirm the result. Blood Venous blood specimen / Unknown 10/14/2023 11:05 AM EDT 10/14/2023 1:15 PM EDT us Leland Brandon MD LAB BLOOD ORDERABLES Final Resul t Performing Organization Address [facility]/ZIP Co de Phone Number [facility] [address] [place] [address] [phone] * (ABNORMAL) Lipid Panel, Standard (10/14/2023 11:05 AM EDT) Triglycerides 105 <150 mg/dL [facility] Comment:Desirable Triglyceri de: less than 150 mg/dLBorderline High Triglyceride 150-199 mg/dLHigh Triglyceride: 200-499 mg/dLVery High Triglyceride: greater than or equal to 5OO mg/dL Cholesterol 192 <200 mg/dL [facility] Comment:Desirable Cholestero l: less than 200 mg/dLBorderline High Cholesterol: 200-239 mg/dLHigh Cholesterol: greater than 239 mg/dL LDL Cholesterol Calculated 102(H) <100 mg/dL [facility] Comment:Desirable LDL: less than 100 mg/dLNear Optimal/Above Optimal LDL: 110- 129 mg/dLBorderline High LDL: 130-159 mg/dLHigh LDL: 160-189 mg/dLVery High LDL: greater than or equal to 190 mg/dL HDL Cholesterol 69 >40 mg/dL [facility] Comment:Desirable HDL: great er than 40 mg/dL Note: This HDL assay may give artificially low results in patients with liver disease. Blood Venous blood specimen / Unknown 10/14/2023 11:05 AM EDT 10/14/2023 1:15 PM EDT us Leland Brandon MD LAB BLOOD ORDERABLES Final Resul t [facility] [address] [place] [phone] * Colonoscopy (07/14/2023) Colonoscopy Normal Normal Comment:Normal Colonoscopy r epeat 10 years us Leland Brandon MD HEALTH MAINTENANCE Final Result from Last 3 Months or Most Recently Relevant to Health Maintenance Insurance [facility] < [address] [place] [id number] Care Teams Clinic Office Coordinator Relationship Specialty Start Date End Date Name, MD Leland [address] [place] [phone] PCP - General Family Medicine 08/26/15
--- OUTSIDE RECORDS SUMMARY | 2024-10-16 16:01 | XMS_ITS | Clinical Summary ---
Author Organization [facility] Address [address] [place] [address] Care Team Providers Care Apple Sorter Name Role Phone No, Pcp Primary Care [...] patient's age to complete this topic Insurance [facility] Care Teams Apple Sorter Relationship Specialty Start Date End Date No, Pcp HIREN PCP - General 01/29/22
== END 2024-10-16 14:17 | disposition home or self-care (01) ==
LOC: HO.LAB 14:16
PROVIDERS: PCP Internal Medicine Geriatric Medicine; Visit Provider Hospitalist
DX: G47.34 Idiopathic sleep related nonobstructive alveolar hypoventilation (principal); G47.33 Obstructive sleep apnea (adult) (pediatric); L03.116 Cellulitis of left lower limb; J41.0 Simple chronic bronchitis; R06.09 Other forms of dyspnea
CPT/HCPCS: 36415; 80048; 85025; 85652; 99212

== ENCOUNTER 2024-10-16 14:16 | Outpatient (AMB) | payer OTHER, SELFPAY ==
[2024-10-16 14:20] VITALS: BP 140/70; PULSE 92; O2SAT 97; BMI 39.2
--- NOTE | 2024-10-16 14:20 | MHC.OFFVIS ---
Vital Signs 10/16/24 14:20 Height 6 ft Weight 288 lb 12.889 oz BMI 39.2 BP 140/70 H Blood Pressure Location Rt brachial Position Sitting Pulse 92 Pulse Source Pulse Oximeter Pulse Oximetry (%) 97 Oxygen Delivery Method Room Air Intake Visit Reasons: Obstructive sleep apnea Accompanied by: Self / Same As Patient Allergies No Known Allergies Allergy (Verified 10/16/24 14:21) HPI Comments Details: The patient is a 59-year-old gentleman with known history of sleep apnea. The patient also presents with dyspnea on exertion. Apparently several years ago the patient underwent a sleep study. It demonstrated moderate to severe sleep apnea with significant hypoxia. He was referred to the sleep Center. There he was placed on a APAP. Then subsequently had a titration study demonstrating that he benefits from BiPAP along with oxygen. The patient however has a hard time tolerating and had to return it. He has been struggling now with significant daytime drowsiness. His Pine Valley score is elevated 14/24. The patient has significant cardiovascular risk factors. He is also complaining of increasing dyspnea on exertion. Uwmy-hc-xbrqvcym severity. He is going to have a cardiac evaluation. In the meantime he has a history of smoking so therefore he participating in the lung cancer screening program. His CT scan was back about a month ago. I did personally reviewed. He had small pulmonary nodules that are not concerning. Although he will need follow-up. No evidence of any significant emphysema. He does have some atelectasis bilaterally likely secondary to his body habitus. He does use a rescue inhaler. Has not use it often. At this point will have him have pulmonary function studies. He will need a repeat in-lab sleep study specially since he has nocturnal hypoxia. He will return after those 2 studies in order to get him restarted on CPAP because it so crucial for him specially with his increased cardiovascular risk factors. 06/18/2024 the patient is here for a pulmonary follow-up visit. The patient overall has been doing fair. He is complaining significant hip pain and lower extremity discomfort. It is keeping him from walking well. He is breathing also is affected. Complains of dyspnea on exertion. He does have a rescue inhaler. Moderate severity. We did review his pulmonary function studies demonstrating moderate obstructive process consistent with COPD. Therefore ahead and start him on Anoro for maintenance. He can also use inhaler as rescue. From a sleep apnea standpoint he continues has significant daytime drowsiness with an elevated Pine Valley score 14 over 24. Needs to have a sleep study. He had an emergency to go to [place] she had to reschedule. He will call to reschedule his sleep study and then follow-up with us. Once 2nd look at this study I can not addendum to my note in order to get him on CPAP or APAP. 10/16/2024 the patient is here for pulmonary follow-up visit. He continues uses respiratory inhalers with good response. Has not had to use his rescue inhaler. Continues to have significant daytime drowsiness. His [place] score is elevated 12/24. He was supposed to have a sleep study that was scheduled however. The patient ended up in the hospital and could not go. Now go ahead and put the order against since he continues to be symptomatic. In the meantime he is having issues with the back. He is found to have severe spinal stenosis and is going to be receiving physical therapy in potential injections. He may ultimately need surgery. Patient recently had surgery for his varicose veins primarily in the left lower extremity. Subsequently complicated by wound and has not been healing. He is going to follow-up with wound care next week. Will go ahead and give her some doxycycline to treat him for Staph aureus. Will follow-up in 3 4 months to review his sleep study. [facility] Medical History COPD (chronic obstructive pulmonary disease) Dyspnea Nocturnal hypoxia Hyperlipidemia History of recurrent deep vein thrombosis (DVT) Chronic back pain Methadone maintenance therapy patient REAGAN (obstructive sleep apnea) Personal history of nicotine dependence Thrombosed external hemorrhoid Morbid obesity Hypertension Chronic pulmonary embolism Current use of anticoagulant therapy Surgical History Hx of colonoscopy History of excision of mass Family History Father History of prostate cancer Social History Household Members: Friend(s) Alcohol intake: former Year quit: 2023 Patient Tobacco Use Status: Former Tobacco user Tobacco use type: Cigarette Years Smoked: onset 14, 1/2-1ppd x 42yrs, 30pyh Current occupational status: disabled Review of Systems Const Denies chills, Reports daytime sleepiness, Reports difficulty sleeping, Denies fatigue, Denies fever(s), Reports snoring, Reports stops breathing during sleep, Reports weight gain and Denies weight loss Eyes Reports no additional complaints ENT Denies dizziness Card Denies chest pain, Denies leg edema, Denies lightheadedness, Denies palpitations, Denies dyspnea on exertion, Denies orthopnea and Denies other Resp Denies cough, Denies dyspnea on exertion, Reports snoring and Denies wheezing GI Denies hematochezia and Denies change in stool character Musc Reports as per HPI, Reports abnormal gait, Denies muscle weakness, Denies numbness, Denies radiating pain into limb and Denies tingling Skin/Breast Reports sores and Reports wounds Neuro Reports abnormal gait, Denies dizziness, Denies numbness and Denies tingling Endo Denies fatigue and Denies palpitations Aller/Immun Denies wheezing Physical Exam Vital Signs: Last Vital Signs Pulse 92 10/16/24 14:20 BP 140/70 H 10/16/24 14:20 Pulse Ox 97 10/16/24 14:20 Oxygen Delivery Method Room Air 10/16/24 14:20 BMI result Body Mass Index 39.2 Const General: comfortable HEENT Head: Yes normal to inspection Neck Neck: Yes normal visual inspection and Yes supple Chest Chest palpation & inspection: normal inspection of the chest Resp Effort & Inspection: normal respiratory effort Auscultation: diminished lung sounds Cardio Heart sounds: S1 normal heart sound present and S2 normal heart sound present GI Palpation (GI): Soft to palpation Skin General skin exam: no rashes or lesions noted Extrem General: No clubbing and No cyanosis Assessment & Plan Assessment & Plan (1) REAGAN (obstructive sleep apnea): Code(s): G47.33 - Obstructive sleep apnea (adult) (pediatric) Category: Medical (2) Nocturnal hypoxia: Code(s): G47.34 - Idiopathic sleep related nonobstructive alveolar hypoventilation Category: Medical (3) Dyspnea: Code(s): R06.00 - Dyspnea, unspecified Category: Medical Qualifiers: Dyspnea type: dyspnea on exertion Qualified Code(s): R06.09 - Other forms of dyspnea (4) COPD (chronic obstructive pulmonary disease): Code(s): J44.9 - Chronic obstructive pulmonary disease, unspecified Category: Medical Qualifiers: COPD type: chronic bronchitis Chronic bronchitis type: simple Qualified Code(s): J41.0 - Simple chronic bronchitis (5) Cellulitis: Code(s): L03.90 - Cellulitis, unspecified Category: Medical Qualifiers: Laterality: left Site of cellulitis: extremity Site of cellulitis of extremity: lower extremity Qualified Code(s): L03.116 - Cellulitis of left lower limb Plan in lab PSG continue Anoro start Docycline Bloodwork BASSEM as needed F/U 4 months Orders: Orders RT PSG in-lab sleep study Today G47.33 - Obstructive sleep apnea (adult) (pediatric), L03.116 - Cellulitis of left lower limb Complete Blood Count Auto Diff Today G47.33 - Obstructive sleep apnea (adult) (pediatric), L03.116 - Cellulitis of left lower limb Basic Metabolic Panel Today G47.33 - Obstructive sleep apnea (adult) (pediatric), L03.116 - Cellulitis of left lower limb Erythrocyte Sedimentation Rate Today G47.33 - Obstructive sleep apnea (adult) (pediatric), L03.116 - Cellulitis of left lower limb Medications: New doxycycline monohydrate 100 mg PO BID 28 tabs 0RF 14 days Coding Level of Care Code Est Pt Level 4 (81098) Diagnoses REAGAN (obstructive sleep apnea) G47.33 Nocturnal hypoxia G47.34 Dyspnea on exertion R06.09 Dyspnea type: dyspnea on exertion Simple chronic bronchitis J41.0 COPD type: chronic bronchitis Chronic bronchitis type: simple Cellulitis of left lower extremity L03.116 Laterality: left Site of cellulitis: extremity Site of cellulitis of extremity: lower extremity Time Spent (min) 16
--- OUTSIDE RECORDS SUMMARY | 2024-10-16 15:36 | XMS_ITS | Encounter Summary ---
Author Organization [employer] Address [address] [facility] 7t [place] [address] Care Team Providers Care Citrus Peeler Name Role Phone Name, Leland MIMS Primary Care Provider [phone] Reason for Visit * Reason Comments Med Refill Encounter Details Date Type Department Care Team ([facility] st Contact Info) Description 06/20/2023 Refill [facility] MED[facility]INE [address] [place] [address] Name, MD Leland [address] [place], [place] [phone] Insomnia, unspecified type Social History Tobacco Use [...] Description 11/16/2024 9:00 AM EDT Office Visit [facility] MED[facility]INE [address] [place] [address] Name, MD Leland [address] [place] [address] documented as of this encounter Visit Diagnoses Diagnosis Insomnia, unspecified type documented in this encounter Additional Health Concerns Assessment Noted Time PHQ-9 Depression Total Score: 0 09/07/19 23 1:16 PM EDT documented as of this encounter Care Teams Citrus Peeler Relationship Specialty Start Date End Date Name, MD Leland [address] [place] [address] PCP - General Family Medicine 08/26/15 documented as of this encounter
--- OUTSIDE RECORDS SUMMARY | 2024-10-16 15:36 | XMS_ITS | Encounter Summary ---
Author Organization [employer] Address [address] [facility] 7t [place] [address] Care Team Providers Care Informatics Specialist Name Role Phone Name, Leland MIMS Primary Care Provider [phone] Reason for Visit * Reason Onset Date Comments Hospital Follow-up 08/17/2024 Encounter Details Date Type Department Care Team ([facility] st Contact Info) Description 08/17/2024 Telephone [facility] MEDICINE [address] [place] [address] Name, MD Leland [address] [place], [place] [phone] Hospital Follow-up Social History Tobacco Use Types [...] from pt requesting a HDF appt. Hospital: [facility] Date of admission: 08/12/24 Discharge date: 08/16/24 Diagnosed: blood clot in left leg documented in this encounter Plan of Treatment Upcoming Encounters Date Type Department Care Team (Late st Contact Info) Description 11/16/2024 9:00 AM EDT Office Visit [facility] MEDICINE [address] [place] [address] Name, MD Leland [address] [place] [address] documented as of this encounter Visit Diagnoses Not on filedocumented in this encounter Additional Health Concerns Assessment Noted Time PHQ-9 Depression Total Score: 0 09/14/19 24 3:10 PM EDT documented as of this encounter Care Teams Informatics Specialist Relationship Specialty Start Date End Date NameLeland MD [address] [place] [address] PCP - General Family Medicine 08/26/15 documented as of this encounter
--- OUTSIDE RECORDS SUMMARY | 2024-10-16 15:36 | XMS_ITS | Encounter Summary ---
Author Organization [employer] Address [address] [facility] 7t [place] [address] Care Team Providers Care Sybase Developer Name Role Phone Name, Leland MIMS Primary Care Provider [phone] Reason for Visit * Reason Onset Date Comments Nurse Triage 08/06/2024 Encounter Details Date Type Department Care Team ([facility] st Contact Info) Description 08/06/2024 Telephone [facility] MEDICINE [address] [place] [address] Name, MD Leland [address] [place] [address] Nurse Triage Social History Tobacco Use Types [...] 08/06/2024 3:03 PM EST Triage call with [facility] [place] [id number] Radha Pt is called several times and call [...] You become worse * Telephone Encounter - Wichogabojason Finnegan - 08/06/2024 2:22 PM EST Symptoms: [...] EDT Office Visit [facility] MEDICINE [address] [place] [address] Name, MD Leland [address] [place] [address] documented as of this encounter Visit Diagnoses Diagnosis Osteoarthritis of right ankle and foot Swelling of lower limb documented in this encounter Additional Health Concerns Assessment Noted Time PHQ-9 Depression Total Score: 0 09/14/19 24 3:10 PM EDT documented as of this encounter Care Teams Sybase Developer Relationship Specialty Start Date End Date Name, MD Leland [address] [place] [address] PCP - General Family Medicine 08/26/15 documented as of this encounter
--- OUTSIDE RECORDS SUMMARY | 2024-10-16 15:36 | XMS_ITS | Encounter Summary ---
Author Organization [employer] Address [address] [facility] [address] 7[address] [place] [address] Care Team Providers Care Photo Checker Name Role Phone Name, Leland MIMS Primary Care Provider [phone] Reason for Visit * Reason Comments Med Refill Encounter Details Date Type Department Care Team ([facility] st Contact Info) Description 09/23/2023 Refill [facility] [address] [place] [address] Ila Lora MD [address] [place] [address] Social History Tobacco Use Types Packs/Day Years [...] Description 11/16/2024 9:00 AM EDT Office Visit [facility] MED[facility] [address] [place] [phone] Name, MD Leland [address] [place] [address] documented as of this encounter Visit Diagnoses Not on filedocumented in this encounter Additional Health Concerns Assessment Noted Time PHQ-9 Depression Total Score: 0 09/14/19 24 3:10 PM EDT documented as of this encounter Care Teams Photo Checker Relationship Specialty Start Date End Date NameLeland MD [address] [place] [address] PCP - General Family Medicine 08/26/15 documented as of this encounter
--- OUTSIDE RECORDS SUMMARY | 2024-10-16 15:36 | XMS_ITS | Encounter Summary ---
Author Organization [employer] Address [address] [facility] [address] 7t [place] [address] Care Team Providers Care Rod Filler Name Role Phone Name, Leland MIMS Primary Care Provider [phone] Encounter Details Date Type Department Care Team (Late st Contact Info) Description 07/19/2023 Abstract [facility] MEDICINE [address] [place] [address] Name, MD Leland [address] [place], [place] [phone] Social History Tobacco Use Types Packs/Day Years [...] 9:00 AM EDT Office Visit [facility] MEDICINE [address] [place] [address] NameLeland MD [address] [place] [address] documented as of this encounter Procedures Procedure [...] documented as of this encounter Care Teams Rod Filler Relationship Specialty Start Date End Date Name, MD Leland [address] [place] [address] PCP - General Family Medicine 08/26/15 documented as of this encounter
--- OUTSIDE RECORDS SUMMARY | 2024-10-16 15:36 | XMS_ITS | Encounter Summary ---
Author Organization [employer] Address [address] [facility] [address] 7t [place] [address] Care Team Providers Care Supervisor Stave Finishing Name Role Phone Name, Leland MIMS Primary Care Provider [phone] Encounter Details Date Type Department Care Team (Late st Contact Info) Description 03/24/2023 Telephone [facility] MEDICINE [address] [place], [place] [phone] Name, MD eLland [address] [place], [place] [phone] Social History Tobacco Use Types Packs/Day Years [...] advise PCP pt is currently admitted to [facility] and was found with blood clots to both legs. Any questions, contact pt at [phone] documented in this encounter Plan of Treatment Upcoming Encounters Date Type Department Care Team (Late st Contact Info) Description 11/16/2024 9:00 AM EDT Office Visit [facility] MEDICINE [address] [place] [phone] Name, MD Leland [address] [place] [address] documented as of this encounter Visit Diagnoses Not on filedocumented in this encounter Additional Health Concerns Assessment Noted Time PHQ-9 Depression Total Score: 0 09/07/19 23 1:16 PM EDT documented as of this encounter Care Teams Supervisor Stave Finishing Relationship Specialty Start Date End Date Name, MD Leland [address] [place] [address] PCP - General Family Medicine 08/26/15 documented as of this encounter
--- OUTSIDE RECORDS SUMMARY | 2024-10-16 15:36 | XMS_ITS ---
Author Organization [facility] Address [address] [place] [address] Care Team Providers Care Director Technical Name Role Phone Name Leland MIMS Primary Care Provider Unavailabl e Alex Smithmie Unavailable [phone] Nalini Dyer Unavailable [phone] Encounters Encounter Location Date Provider Diagnosis [address] [address] 08/02/2024 Nalini Dyer Plan Of Treatment Next Appt Details Provider Name:Nalini addison, 11/15/2024 02:30:00 PM, [address] [place] [address], [phone], Progress Notes * Jaren MCLAUGHLINsDOB: 3 (59 yo M)Acc No.[id number]:08/02/2024 Progress Note Patient:?Steven MCLAUGHLIN Provider:?Nalini Dyer DPM :1965???Age:59 Y???Sex:Male Jose e:08/02/2024 Address:[address] [place], [place] [id number] Pcp:Leland Brandon MD Subjective: * Chief Complaints: [...] Dyer DPM Date:? Generated for Luisa john/Alexandrea/Clayton on:?10/16/2024 03:35 PM EDT
--- OUTSIDE RECORDS SUMMARY | 2024-10-16 15:36 | XMS_ITS | Encounter Summary ---
Author Organization [employer] Address [address] [facility] 7t [place] [address] Care Team Providers Care African Studies Professor Name Role Phone Name, Leland MIMS Primary Care Provider [phone] Reason for Visit * Reason Comments Med Refill Encounter Details Date Type Department Care Team (Late Contact Info) Description 02/21/2023 Refill [facility] MEDICINE [address] [place] [address] [phone] NameLeland MD [address] [place] [address] [phone] Insomnia, unspecified type Social History Tobacco Use [...] Upcoming Encounters Date Type Department Care Team ([facility] Contact Info) Description 11/16/2024 9:00 AM EDT Office Visit [facility] MEDICINE [address] [place] [address] [phone] Name, MD Leland [address] [place] [address] [phone] documented as of this encounter Visit Diagnoses Diagnosis Insomnia, unspecified type documented in this encounter Additional Health Concerns Assessment Noted Time PHQ-9 Depression Total Score: 0 09/07/19 23 1:16 PM EDT documented as of this encounter Care Teams African Studies Professor Relationship Specialty Start Date End Date Name, MD Leland [address] [place] [address] PCP - General Family Medicine 08/26/15 documented as of this encounter
--- OUTSIDE RECORDS SUMMARY | 2024-10-16 15:36 | XMS_ITS ---
Author Organization [facility] Address [address] [facility] [place] [address] Care Team Providers Care Commercial Sales Consultant Name Role Phone Name Leland MIMS Primary Care Provider Unavailabl e Black, Yaquelin Unavailable [phone] PericaLucioen Unavailable [phone] Allergies No Known Allergies REASON FOR VISIT [...] Piroxicam 20 MG TAKE 1 CAPSULE BY [facility] EVERY DAY WITH FOOD FOR 30 DAYS for 30 Not-Taking Eliquis 5 MG as directed Orally Not-Taking Ciclopirox 0.77 % 1 application Museum Educator ally Twice a day for 30 days [...] 025 Encounters Encounter Location Date Provider Diagnosis [facility] [address] [place] [address] 09/06/2024 Nalini Manisha Pain in right toe(s) [...] Provider Name:Nalinilucrecia addison, 11/15/2024 02:30:00 PM, [address] [facility], [place], [address], Procedure Notes * Category Sub-Category Detail Notes Wart Treatment Procedure Verruca, as desc ribed in exam, were debrided to pin-point bleeding margins with sterile 15 surgical blade, silver nitrate chemocautery applied, recomm. immune-boosting meds such as zinc, recomm. follow up with topical chemosurgical agents, Pt defers any other forms of tx - 87373 Debride Nail 6-10 Nail debridement Due to [...] use of a nail nipper and/or dremel-type white lead grinder, to a more viable healthy nail [...] to maintain effectiveness in symptomatic relief - 93706 Progress Notes * Rajeev MCLAUGHLINOB: 3 (59 yo M)Acc No.[id number]:09/06/2024 Progress Note Patient:?Steven MCLAUGHLIN Provider:?Nalini Dyer DPM :1965???Age:59 Y???Sex:Male Jose e:09/06/2024 Address:[address] [place] [address] Pcp:Leland Brandon MD Subjective: * Chief Complaints: [...] use of a nail nipper and/or dremel-type white lead grinder, to a more viable healthy nail [...] to maintain effectiveness in symptomatic relief - 54879.?Wart Treatment:?Procedure?Verruca, as described in exam, were debrided to pin-point bleeding margins with sterile 15 surgical blade, silver nitrate chemocautery applied, recomm. immune-boosting meds such as zinc, recomm. follow up with topical chemosurgical agents, Pt defers any other forms of tx - 14403.? * Procedure Codes:?77964 DEBRI DE NAIL, 6 OR MORE, Modifiers: XS 50908 Wart Destruction, 1-14, Modifiers: XS * Follow Up:?2 Months * Images: * Sign off status: Completed true * Provider:?Nalini Dyer, DPMarie Date:? Generated for Luisa john/Alexandrea/Clayton on:?10/16/2024 03:36 PM EDT History and Physical Notes * [...]
--- OUTSIDE RECORDS SUMMARY | 2024-10-16 15:36 | XMS_ITS | Encounter Summary ---
Author Organization [employer] Address [address] [facility] 7t [place] [address] Care Team Providers Care Policy Advisor Name Role Phone Name, Leland MIMS Primary Care Provider [phone] Reason for Visit * Reason Onset Date Comments Med Refill 07/28/2023 Encounter Details Date Type Department Care Team ([facility] st Contact Info) Description 07/28/2023 Telephone [facility] MEDICINE [address] [place] [address] Name, MD Leland [address] [place], [place] [phone] Med Refill Social History Tobacco Use Types [...] Vogt LPN - 07/28/2023 11:52 AM EST CONTOUR GRINDER checked 07/28/23 last filled on 06/17/23 refill 2/3 patient should have 1 refill left. * Telephone Encounter - Hailee Louie - 07/28/2023 11:08 AM EST TC from pt requesting medication refill. Medications needing refill : gabapentin (Neurontin) 800 MG tablet To be sent to: [facility] [place] - [address] [place] [address] documented in this encounter Plan of Treatment Upcoming Encounters Date Type Department Care Team (Late st Contact Info) Description 11/16/2024 9:00 AM EDT Office Visit [facility] MEDICINE [address] [place] [address] Name, MD Leland [address] [place] [address] documented as of this encounter Visit Diagnoses Not on filedocumented in this encounter Additional Health Concerns Assessment Noted Time PHQ-9 Depression Total Score: 0 09/07/19 23 1:16 PM EDT documented as of this encounter Care Teams Policy Advisor Relationship Specialty Start Date End Date Name, MD Leland [address] [place] [address] PCP - General Family Medicine 08/26/15 documented as of this encounter
--- OUTSIDE RECORDS SUMMARY | 2024-10-16 15:36 | XMS_ITS | Patient Health Record ---
Author Organization [facility] Address [address] [facility] [place] [address] Care Team Providers Care Acetylene Torch Burner Name Role Phone Name Leland MIMS Primary Care Provider Unavailyves e Luis Yaquelin Unavailable [phone] Manisha Nalini Unavailable [phone] Allergies No Known Allergies Reason For Referral No Information Medications Medication SIG (Take, Route, Frequency, Duration) Notes Start Date End Date Status Naproxen 500 MG 1 tablet Orally WITH FOOD Twice a day for 14 days 01/28/2023 Not-Taki ng Ciclopirox 0.77 % 1 application Tobacco Stripping Machine Operator ally Twice a day for [...] rnally Twice a day for 30 days Not-Takjason ng Piroxicam 20 MG TAKE 1 CAPSULE BY [facility] EVERY DAY WITH FOOD FOR [...] Problem Status W/U Status Risk Notes Problem 21640618 Plantar wart (B07.0) Active confirmed Problem Acquired hammer toe of left foot (1156499400702985) Other hammer toe(s) (acquired), left foot (M20.42) Active confirmed Problem 864592144 Hammer toe of right foot (M20.41) Active confirmed Problem 008091324 Neuropathy (G62.9) Active confirmed Problem 387994796797143 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 (M19.071) Active confirmed Problem Acquired deformity of left foot (63823427460330235) PlantarFlexion of metatarsal of left foot (M21.6X2) Active confirmed Problem 8687145081425089 Gouty arthritis of left foot (M10.9) Active confirmed Vital Signs Blood pressure diastolic 80 mm Hg 09/06/2024 Height 6ft in 09/06/2024 Blood pressure systolic 130 mm Hg 09/06/2024 Weight 289 lbs 09/06/2024 BMI 39.19 kg/m2 09/06/2024 Encounters Encounter Location Date Provider Diagnosis [address] [address] 12/08/2023 Nalini Perica Tinea unguium B35.1 ; Pain in right toe(s) M79.674 and Pain in left toe(s) M79.[address] [facility] [address] 05/21/2024 Nalini Perica Tinea unguium B35.1 ; Metatarsalgia, left foot M77.42 ; Pain in right toe(s) M79.674 ; Pain in left toe(s) M79.675 ; Xerosis of skin L85.3 ; PlantarFlexion of metatarsal of left foot M21.6X2 ; Other hammer toe(s) (acquired), left foot M20.42 ; Hammer toe of right foot M20.41 and Bursitis of intermetatarsal bursa of left foot M77.[address] [facility] [address] 09/06/2024 Nalini Perica Pain in right toe(s) M79.674 ; Onychomycosis B35.1 ; Pain in left toe(s) M79.675 ; Plantar wart B07.0 and Left foot pain M79.672 [facility] [address] [place] [address] 02/06/2024 [facility] [address] 03/05/2024 Yaquelin Smith Assessments Encounter Date Diagnosis [...] X ray : Foot, right 3V 01/27/2023 18707-[id number] NAIL, 6 OR MORE 11/03/2021 34345-GMUWYGV NAIL, 6 OR MORE 01/19/2022 96967, J0702- INJECT TENDON ORIGIN/INSER T 01/27/2023 72647, C0232-QEDOP/INJECT, JOINT/BURSA 0 07/02/2022 X ray : Ankle, right 3V 01/27/2023 Next Appt Details Provider Name:Nalini addison, 11/15/2024 02:30:00 PM, [address] [place], [address], Insurance Providers Payer Name Payer Address Payer Phone Subscriber Number Group Number Insured Name Patient Relationship to Insured Coverage Start Date Coverage End Date [facility] [employer] Claims [address] [place] [phone] [id number] Steven Subramanian Self - patient is the insured Medical (General) History Medical History History ICD Code Arthritis Depression Psoriasis/eczema Surgical History Surgery Date(Month/Year) ear tubes Hospitalization History Reason Date(Month/Year) blood clot 09/04 [facility] leg issue, cyst [facility]- blood clot 07/2021
--- OUTSIDE RECORDS SUMMARY | 2024-10-16 15:36 | XMS_ITS | Clinical Summary ---
Author Organization [facility] Address [address] [place] [address] Phone Care Team Providers Care Grinder And Honer Operator Automatic Name Role Phone Name, Leland MIMS Primary Care Provider [phone] Allergies No known active allergies Medications DICLOFENAC [...] ID:[id number] Group ID:[id number] Type:Not on file Address: [place] [address] [place] [address] Care Teams Grinder And Honer Operator Automatic Relationship Specialty Start Date End Date Name, MD Leland [address] [place] [address] PCP - General 01/06/15
--- OUTSIDE RECORDS SUMMARY | 2024-10-16 15:36 | XMS_ITS | Encounter Summary ---
Author Organization [email or web address] Address [address] [facility] 7t [place] [address] Care Team Providers Care Social Media Project Manager Name Role Phone Name, Leland MIMS Primary Care Provider [phone] Reason for Visit * Reason Onset Date Comments Call Back Request 08/30/2024 Encounter Details Date Type Department Care Team ([facility] st Contact Info) Description 08/30/2024 Telephone [facility] MEDICINE [address] [place] [address] Name, MD Leland [address] [place] [address] Call Back Request Social History Tobacco Use [...] procedure done , pt was inform from [facility] where procedure was done to contact PCP. Pt will like to know if could take walks with no problem due to procedure. German speaker documented in this encounter Plan of Treatment Upcoming Encounters Date Type Department Care Team (Late st Contact Info) Description 11/16/2024 9:00 AM EDT Office Visit [facility] MEDICINE [address] [place] [address] Name, MD Leland [address] [place] [address] documented as of this encounter Visit Diagnoses Not on filedocumented in this encounter Additional Health Concerns Assessment Noted Time PHQ-9 Depression Total Score: 0 09/14/19 24 3:10 PM EDT documented as of this encounter Care Teams Social Media Project Manager Relationship Specialty Start Date End Date Name, MD Leland [address] [place] [address] PCP - General Family Medicine 08/26/15 documented as of this encounter
--- OUTSIDE RECORDS SUMMARY | 2024-10-16 15:36 | XMS_ITS | Encounter Summary ---
Author Organization [employer] Address [address] [facility] 7t [place] [address] Care Team Providers Care Traffic Director Name Role Phone Name, Leland MIMS Primary Care Provider [phone] Reason for Visit * Reason Onset Date Comments Verbal Order 07/24/2024 Encounter Details Date Type Department Care Team ([facility] st Contact Info) Description 07/24/2024 Telephone [facility] MEDICINE [address] [place] [address] Name, MD Leland [address] [place] [address] Verbal Order Social History Tobacco Use Types [...] EST Telephone call returned to Katey at [facility], spoke with Katey. Gave verbal orders for VNA care. Asked when last office visit was, advised it was 07/06/24 with PCP and also pt was seen in [facility] walk in clinic on 07/14/24. Katey verbalized understanding, no further questions. * Telephone Encounter - João Bhatt - 07/24/2024 4:34 PM EST Tc from Emelia with [facility] requesting verbal orders. Please contact Emelia at [phone] Opt 2. documented in this encounter Plan of Treatment Upcoming Encounters Date Type Department Care Team (Late st Contact Info) Description 11/16/2024 9:00 AM EDT Office Visit [facility] MEDICINE [address] [place] [address] Name, MD Leland [address] [place] [address] documented as of this encounter Visit Diagnoses Not on filedocumented in this encounter Additional Health Concerns Assessment Noted Time PHQ-9 Depression Total Score: 0 09/14/19 24 3:10 PM EDT documented as of this encounter Care Teams Traffic Director Relationship Specialty Start Date End Date Name, MD Leland [address] [place] [address] PCP - General Family Medicine 08/26/15 documented as of this encounter
--- OUTSIDE RECORDS SUMMARY | 2024-10-16 15:36 | XMS_ITS | Encounter Summary ---
Author Organization [employer] Address [address] [facility] 7t [place] [address] Care Team Providers Care Cold Mill Supervisor Name Role Phone Name, Leland MIMS Primary Care Provider [phone] Encounter Details Date Type Department Care Team ([facility] Contact Info) Description 11/22/[address] [phone] Name, MD Leland [address] [place] [address] Social History Tobacco Use Types Packs/Day Years [...] Upcoming Encounters Date Type Department Care Team ([facility] Contact Info) Description 11/16/2024 9:00 AM EDT Office Visit [facility] MEDICINE [address] [place] [address] Name, MD Leland [address] [place] [address] documented as of this encounter Visit Diagnoses Not on filedocumented in this encounter Additional Health Concerns Assessment Noted Time PHQ-9 Depression Total Score: 0 09/07/19 23 1:16 PM EDT documented as of this encounter Care Teams Cold Mill Supervisor Relationship Specialty Start Date End Date Name, MD Leland [address] [place] [address] PCP - General Family Medicine 08/26/15 documented as of this encounter
--- OUTSIDE RECORDS SUMMARY | 2024-10-16 15:36 | XMS_ITS | Encounter Summary ---
Author Organization [employer] Address [address] [facility] 7t [place] [address] Care Team Providers Care Pharmacy Stock Clerk Name Role Phone Name, Leland MIMS Primary Care Provider [phone] Reason for Visit * Reason Onset Date Comments Med Refill 01/02/2024 Encounter Details Date Type Department Care Team ([facility] st Contact Info) Description 01/02/2024 Telephone [facility] MEDICINE [address] [place] [address] Name, MD Leland [address] [place], [place] [phone] Med Refill Social History Tobacco Use Types [...] 10 MG tablet To be sent to: [facility] - [place], [place] - [address] [place] [address] documented in this encounter Plan of Treatment Upcoming Encounters Date Type Department Care Team (Late st Contact Info) Description 11/16/2024 9:00 AM EDT Office Visit [facility] MEDICINE [address] [place] [address] Name, MD Leland [address] [place] [address] documented as of this encounter Visit Diagnoses Not on filedocumented in this encounter Additional Health Concerns Assessment Noted Time PHQ-9 Depression Total Score: 0 09/14/19 24 3:10 PM EDT documented as of this encounter Care Teams Pharmacy Stock Clerk Relationship Specialty Start Date End Date Name, MD Leland [address] [place] [address] PCP - General Family Medicine 08/26/15 documented as of this encounter
--- OUTSIDE RECORDS SUMMARY | 2024-10-16 15:36 | XMS_ITS | Encounter Summary ---
Author Organization [employer] Address [address] [facility] 7t [place] [address] Care Team Providers Care Manager Primary Care Name Role Phone Name, Leland MIMS Primary Care Provider Reason for Visit * Reason Onset Date Comments FYI 07/26/2024 Encounter Details Date Type Department Care Team ([facility] st Contact Info) Description 07/26/2024 Telephone [facility] MEDICINE [address] [place] [address] Name, MD Leland [address] [place] [address] FY Social History Tobacco Use Types Packs/Day Years [...] AM EST Tc from Sol with [facility] stating that they contact Pt but he refused Both time and they are only allowed to try and offer the Services twice. So they said that they were not going to keep trying. If any questions contact Sol at [phone] documented in this encounter Plan of Treatment Upcoming Encounters Date Type Department Care Team (Late st Contact Info) Description 11/16/2024 9:00 AM EDT Office Visit [facility] MEDICINE [address] [place] [address] Name, MD Leland [address] [place] [address] documented as of this encounter Visit Diagnoses Not on filedocumented in this encounter Additional Health Concerns Assessment Noted Time PHQ-9 Depression Total Score: 0 09/14/19 24 3:10 PM EDT documented as of this encounter Care Teams Manager Primary Care Relationship Specialty Start Date End Date Name, MD Leland [address] [place] [address] PCP - General Family Medicine 08/26/15 documented as of this encounter
--- OUTSIDE RECORDS SUMMARY | 2024-10-16 15:36 | XMS_ITS | Encounter Summary ---
Author Organization [employer] Address [address] [facility] [address] 7t [place] [address] Care Team Providers Care It Network Administrator Name Role Phone Name, Leland MIMS Primary Care Provider [phone] Reason for Visit * Reason Comments Med Refill Encounter Details Date Type Department Care Team ([facility] st Contact Info) Description 07/25/2024 Refill [facility] [address] [place], [place] [phone] Stacey Wade MD [address] [place] [address] Lumbago with sciatica, right side Social History [...] Description 11/16/2024 9:00 AM EDT Office Visit [facility] MEDICINE [address] [place] [address] Name, MD Leland [address] [place] [address] documented as of this encounter Visit Diagnoses Diagnosis Lumbago with sciatica, right side documented in this encounter Additional Health Concerns Assessment Noted Time PHQ-9 Depression Total Score: 0 09/14/19 24 3:10 PM EDT documented as of this encounter Care Teams It Network Administrator Relationship Specialty Start Date End Date Name, MD Leland [address] [place] [address] PCP - General Family Medicine 08/26/15 documented as of this encounter
--- OUTSIDE RECORDS SUMMARY | 2024-10-16 15:37 | XMS_ITS | Encounter Summary ---
Author Organization [employer] Address [address] [facility] 7t [place] [address] Care Team Providers Care Bowling Teacher Name Role Phone Name, Leland MIMS Primary Care Provider [phone] Encounter Details Date Type Department Care Team (Late st Contact Info) Description 10/16/2024 Orders Only GENERIC EXTERNAL DATA DEPARTMENT Provider, Generic External Data Social History Tobacco Use Types Packs/Day Years [...] Description 11/16/2024 9:00 AM EDT Office Visit [facility] MEDICINE [address] [place] [address] Name, MD Leland [address] [place] [address] documented as of this encounter Procedures Procedure Name Priority Date/Time Associated Diagnosis Comments CBC WITH AUTO DIFFERENTIAL Routine 10/16/2024 2:57 PM EDT documented in this encounter Results * (ABNORMAL) CBC auto differential (10/16/2024 2:57 PM EDT) White Blood Count 9.1 4.8 - 10.8 X10*3/uL [facility] Red Blood Count 4.14(L) 4.60 - 5.80 X10*6/uL [facility] Hemoglobin 12.7(L) 14.0 - 18.0 g/dl [facility] Hematocrit 39.8(L) 42.0 - 52.0 % [facility] Mean Corpuscular Volume 96.1 80.0 - 98.0 fL [facility] Mean Corpuscular Hemoglobin 30.7 27.0 - 33.0 pg [facility] Mean Corpuscular HGB Conc 31.9 31.0 - 36.0 g/dl [facility] Red Cell Distribution Width 14.4 11.0 - 16.0 % [facility] Platelet Count 213 160 - 400 X10*3/uL [facility] Mean Platelet Volume 10.2 9.4 - 12.4 fL [facility] Neutrophils Percent Auto 74.5(H) 45 - 73 % [facility] Imm Gran Pct Auto 0.7(H) 0.0 - 0.4 % [facility] Lymphocytes Percent Auto 15.1(L) 20 - 40 % [facility] Monocytes Percent Auto 8.4 2 - 11 % [facility] Eosinophils Percent Auto 1.2 0 - 4 % [facility] Basophils Percent Auto 0.1 0 - 2 % [facility] NRBC Pct Auto 0.0 0.0 - 0.2 /100WBC [facility] Neutrophils Absolute Auto 6.8 2.0 - 8.3 x10*3/uL [facility] Imm Gran Abs Auto 0.06(H) 0.00 - 0.03 X10*3/uL [facility] Lymphocytes Absolute Auto 1.4 1.2 - 4.9 X10*3/uL [facility] Monocytes Absolute Auto 0.8 0.1 - 1.2 X10*3/uL [facility] Eosinophils Absolute Auto 0.1 0.0 - 0.4 X10*3/uL [facility] Basophils Absolute Auto 0.0 0.0 - 0.2 X10*3/uL [facility] NRBC Abs Auto 0.000 0.0 - 0.012 X10*3/uL [facility] 10/16/2024 2:57 PM EDT 10/16/2024 2:57 PM EDT us Generic External Data Provider LAB BLOOD ORDERAB LES Final Result [facility] [address] [place] [address] [phone] documented in this encounter Visit Diagnoses Not on filedocumented in this encounter Additional Health Concerns Assessment Noted Time PHQ-9 Depression Total Score: 0 09/14/19 24 3:10 PM EDT documented as of this encounter Care Teams Bowling Teacher Relationship Specialty Start Date End Date Name, MD Leland [address] [place] [address] PCP - General Family Medicine 08/26/15 documented as of this encounter
--- OUTSIDE RECORDS SUMMARY | 2024-10-16 15:37 | XMS_ITS | Encounter Summary ---
Author Organization [employer] Address [address] [facility] [address] 7t [place] [address] Care Team Providers Care Cable Tool Driller Name Role Phone Name, Leland MIMS Primary Care Provider Reason for Visit * Reason Onset Date Comments Med Refill 10/11/2024 Encounter Details Date Type Department Care Team (Late st Contact Info) Description 10/11/2024 Refill [facility] [address] [place], [place] [phone] Name, MD Leland [address] [place] [address] Insomnia, unspecified type Social History Tobacco Use [...] encounter Miscellaneous Notes * Telephone Encounter - Maxine Bond LPN - 10/11/2024 1:19 PM EDT Last seen 4.7.25 property technician ck 5.1.25 documented in this encounter Plan of Treatment Upcoming Encounters Date Type Department Care Team (Late st Contact Info) Description 11/16/2024 9:00 AM EDT Office Visit [facility] MEDICINE [address] [place] [address] NameLeland MD [address] [place] [address] documented as of this encounter Visit Diagnoses Diagnosis Insomnia, unspecified type documented in this encounter Additional Health Concerns Assessment Noted Time PHQ-9 Depression Total Score: 0 09/14/19 24 3:10 PM EDT documented as of this encounter Care Teams Cable Tool Driller Relationship Specialty Start Date End Date NameLeland MD [address] [place] [address] PCP - General Family Medicine 08/26/15 documented as of this encounter
--- OUTSIDE RECORDS SUMMARY | 2024-10-16 15:37 | XMS_ITS | Encounter Summary ---
Author Organization [employer] Address [address] [facility] 7t [place] [address] Care Team Providers Care Center Director Lead Teacher Name Role Phone Name, Leland MIMS Primary Care Provider Reason for Visit * Reason Onset Date Comments Referral 07/20/2022 Encounter Details Date Type Department Care Team ([facility] st Contact Info) Description 07/20/2022 Telephone [facility] MEDICINE [address] [place], [place] [phone] Name, MD Leland [address] [place] [address] Referral Social History Tobacco Use Types Packs/Day [...] - 07/20/2022 10:13 AM EST Marva calling [facility] for new or existing referrals for [facility], [address], [place] [address], Phone #: , Reason for referral is Chronic Severe pain left foot. Marva advised pt has an X-ray done and patient does have the symptom of Chronic pain. Advised Marva with [facility] will forward to team nurse for new referral and media specialist for existing referral. Please call Marva at [phone] documented in this encounter Plan of Treatment Upcoming Encounters Date Type Department Care Team (Late st Contact Info) Description 11/16/2024 9:00 AM EDT Office Visit [facility] MEDICINE [address] [place] [address] Name, MD Leland [address] [place] [address] documented as of this encounter Visit Diagnoses Not on filedocumented in this encounter Care Teams Center Director Lead Teacher Relationship Specialty Start Date End Date Name, MD Leland [address] [place] [address] PCP - General Family Medicine 08/26/15 documented as of this encounter
--- OUTSIDE RECORDS SUMMARY | 2024-10-16 15:37 | XMS_ITS | Encounter Summary ---
Author Organization [employer] Address [address] [facility] [address]t [place] [address] Care Team Providers Care Set Up Mechanic Coil Winding Machines Name Role Phone Name, Leland MIMS Primary Care Provider [phone] Reason for Visit * Reason Comments Med Refill Encounter Details Date Type Department Care Team ([facility] Contact Info) Description 10/22/2022 Refill [facility] MEDICINE [address] [place] [address] [phone] Name, MD Leland [address] [place] [address] Insomnia, unspecified type Social History Tobacco Use [...] Upcoming Encounters Date Type Department Care Team ([facility] Contact Info) Description 11/16/2024 9:00 AM EDT Office Visit [facility] MEDICINE [address] [place] [address] Name, MD Leland [address] [place] [address] documented as of this encounter Visit Diagnoses Diagnosis Insomnia, unspecified type documented in this encounter Additional Health Concerns Assessment Noted Time PHQ-9 Depression Total Score: 0 09/07/19 23 1:16 PM EDT documented as of this encounter Care Teams Set Up Mechanic Coil Winding Machines Relationship Specialty Start Date End Date Name, MD Leland [address] [place] [address] PCP - General Family Medicine 08/26/15 documented as of this encounter
--- OUTSIDE RECORDS SUMMARY | 2024-10-16 15:37 | XMS_ITS ---
Author Organization [facility] Address [address] [place] [address] Care Team Providers Care Link Machine Operator Name Role Phone Name Leland MIMS Primary Care Provider Unavailabl e Black, Yaquelin Unavailable [phone] PericaNalini Unavailable [phone] Allergies No Known Allergies REASON FOR VISIT Painful nail(s) aggrevated by shoes causing difficulty standing/walking, Foot pain Medications Medication SIG (Take, Route, Frequency, Duration) Notes Start Date End Date Status Naproxen 500 MG 1 tablet Orally WITH FOOD Twice a day for 14 days 01/28/2023 Not-Taki ng Ciclopirox 0.77 % 1 application Dehydrogenation Operator ally Twice a day for 30 [...] Piroxicam 20 MG TAKE 1 CAPSULE BY [facility] EVERY DAY WITH FOOD FOR 30 DAYS [...] 05/21/2024 Encounters Encounter Location Date Provider Diagnosis [facility] [address] [address] 05/21/2024 Nalini Dyer Tinea unguium B35.1 ; [...] Provider Name:Nalini addison, 11/15/2024 02:30:00 PM, [address] [facility], [place], [address], Procedure Notes * Category Sub-Category Detail Notes [...] * Rajeev MCLAUGHLINOB: 3 (59 yo M)Acc No.[id number]:05/21/2024 Progress Note Patient:?Steven MCLAUGHLIN Provider:?Nalini Dyer DPM :1965???Age:59 Y???Sex:Male Jose e:05/21/2024 Address:[address] [place], [place] [address] Pcp:Leland Brandon MD Subjective: * Chief Complaints: [...] M77.52??? Plan: * Treatment: * Procedures:?Injection:?Sm. Joint, Bursa?07830, J0702 Injection - Left 2nd interspace sm/med [...] ( 0-1) out of 10.? * Procedure Codes:?82878 DEBRI DE NAIL, 6 OR MORE, Modifiers: XS 08627 DRAIN/INJECT, JOINT/BURSA, Modifiers: XS J0702 INJ BETAMETHSN [...] Dyer DPM Date:?02/2024 Generated for Luisa john/Faxing/eTransmitting on:?10/16/2024 03:36 PM EDT History and Physical [...]
--- OUTSIDE RECORDS SUMMARY | 2024-10-16 15:37 | XMS_ITS | Encounter Summary ---
Author Organization [employer] Address [address] [facility] [address] [place] [address] Care Team Providers Care Livery Car Driver Name Role Phone Name, Leland MIMS Primary Care Provider [phone] Reason for Visit * Reason Onset Date Comments Call Back Request 10/05/2024 Encounter Details Date Type Department Care Team ([facility] st Contact Info) Description 10/05/2024 Telephone [facility] MEDICINE [address] [place] [address] Name, MD Leland [address] [place] [address] Call Back Request Social History Tobacco Use [...] Telephone Encounter - Iris Lawson RN - 10/05/2024 4:41 PM EDT Triage call with [facility] Bar Att[place] [id number] Pt is calling in regards to concerns that Pt is diabetic. Pt does have dx of impaired glucose intolerance. Pt reports an open area behind left knee that has never healed and an ulcer . It is unclearto chief underwriter if this is a wound that is draining. Pt next OV is 11/16/24 and Pt would like this concern evaluated more quickly. Pt sx are frequent urination but Pt has BPH and is not drinking adequate fluids. Pt will be seeing a urologist. Pt reports seeing a Doctor today and was asked if Pt was diabetic. [place] and offices closed at this time till Tuesday. Pt would like to be seen soon. Pt is offered INSted visit and agrees to having visit in the morning. Insted visit is requested for 10/06/24 AM for katelin lulation of blood sugar value and wound. Pt agrees with this plan and Insurance is verified as active. Protocol Used: Diabetes - High Blood Sugar (Adult) Protocol-Based Disposition: See in Office or Video Visit Today Video visit not offered Positive Triage Question: * Patient wants to be seen * All higher-acuity triage questions were negative Care Advice Discussed: * High Blood Sugar (Hyperglycemia) * Treatment - Liquids * Reasons To Call Back - Blood glucose over 300 mg/dL (16.7 mmol/L), two or more times in a row. - Urine ketones become moderate or large (or more than 1+); if you check blood ketones, blood ketone test is over 1.4 mmol/L - Vomiting lasting over 4 hours or unable to drink any fluids - Rapid breathing occurs - You have more questions - You become worse * Telephone Encounter - Tete Hess RN - 10/05/2024 4:01 PM EDT Called pt. Via [employer] customer account administrator [phone] [address]. Triage nurse notified me that she is currently on phone with pt. No answer as pt. Is on other line. * Telephone Encounter - Loi Cobos - 10/05/2024 3:40 PM EDT TC from pt returning call regarding prior message. Contact pt at [phone] * Telephone Encounter - Vic Finnegan - 10/05/2024 1:52 PM EDT Tc from pt stating he has been experiencing chronic health conditions and is concerned he may have diabetes, as he has an wound on his left leg that is not healing. Pt reports difficulty walking and inform provider sent a referral for therapy ; however he has not yet been contacted by the facility.Investigation Lieutenant does not see referral in system; pt states that his condition is worsening. ( Denied triage ) Please return call [phone] (LATVIAN) documented in this encounter Plan of Treatment Upcoming Encounters Date Type Department Care Team (Late st Contact Info) Description 11/16/2024 9:00 AM EDT Office Visit [facility] MED[facility]INE [address] [facility] [place] [address] Name, MD Leland [address] [place] [address] documented as of this encounter Visit Diagnoses Not on filedocumented in this encounter Additional Health Concerns Assessment Noted Time PHQ-9 Depression Total Score: 0 09/14/19 24 3:10 PM EDT documented as of this encounter Care Teams Livery Car Driver Relationship Specialty Start Date End Date Name, MD Leland Denton [facility] [place] [address] PCP - General Family Medicine 08/26/15 documented as of this encounter
--- OUTSIDE RECORDS SUMMARY | 2024-10-16 15:37 | XMS_ITS | Referral Summary ---
Author Organization [facility] Address [address] [place] [address] Care Team Providers Care Substation Engineer Name Role Phone No, Pcp Primary [...] Treatment Not on file Insurance Care Teams Substation Engineer Relationship Specialty Start Date End Date No, Pcp HIREN PCP - General 01/29/22
--- OUTSIDE RECORDS SUMMARY | 2024-10-16 15:37 | XMS_ITS | Encounter Summary ---
Author Organization [employer] Address [address] [facility] [address] [place] [address] Care Team Providers Care Concrete Block Layer Name Role Phone Name, Leland MIMS Primary Care Provider [phone] Reason for Visit * Reason Onset Date Comments Med Refill 05/25/2024 Encounter Details Date Type Department Care Team ([facility] st Contact Info) Description 05/25/2024 Telephone [facility] MEDICINE [address] [place] [address] Name, MD Leland [address] [place] [address] Med Refill Social History Tobacco Use Types [...] 4 MG tablet To be sent to: [facility] documented in this encounter Plan of Treatment Upcoming Encounters Date Type Department Care Team (Late st Contact Info) Description 11/16/2024 9:00 AM EDT Office Visit [facility] MEDICINE [address] [place] [id number] Name, MD Leland [address] [place] [address] documented as of this encounter Visit Diagnoses Not on filedocumented in this encounter Additional Health Concerns Assessment Noted Time PHQ-9 Depression Total Score: 0 09/14/19 24 3:10 PM EDT documented as of this encounter Care Teams Concrete Block Layer Relationship Specialty Start Date End Date Name, MD Leland [address] [place] [address] PCP - General Family Medicine 08/26/15 documented as of this encounter
--- OUTSIDE RECORDS SUMMARY | 2024-10-16 15:37 | XMS_ITS | Clinical Summary ---
Author Organization [facility] Address [address] [place] [address] Care Team Providers Care Broaching Machine Operator Name Role Phone No, Pcp Primary [...] patient's age to complete this topic Insurance [facility] Care Teams Broaching Machine Operator Relationship Specialty Start Date End Date No, Pcp HIREN PCP - General 01/29/22
--- OUTSIDE RECORDS SUMMARY | 2024-10-16 15:37 | XMS_ITS | Data Portability ---
Author Organization [place] - [facility], Allergy Address [address] [place] [phone] Care Team Providers Care Mail Examiner Name Role Phone NAME, MARIO Primary Care [...] consider CT temporal bone given chronic symptoms. [email or web address] Not available 11/24/2023 17:08:14 01/24/2024 01/24/2024 Patient [...] Risks and benefits of surgery discussed using staff interpreter. Will begin the scheduling process and see him back at the time of surgery. [email or web address] Not available 01/24/2024 16:10:18 06/18/2024 06/18/2024 Patient presents postoperatively after insertion of T-tubes bilaterally 05/18. Has had a burning pain in the right ear. Physical exam reveals well placed and patent tubes without otorrhea. The skin of the right EAC is erythematous and dry though intact without edema. The conductive component of his hearing loss has resolved and he has a persistent edmacpfx-kb-drxvlo neurosensory loss. Recommend updated technology; [facility] provider list provided with medical clearance [...] oil 0.01 % ear drops 2024 025 [facility]armacy #[id number], [address] [place], [address], 5 15:56:32 Patient TargetsNo targets recorded. Patient [...] Details Recorded Time History of tobacco use [id number] 03 Active 2017 History of tobacco use; Note: Date Diagnose d: 11/17/2017 2:10 PM (V15.82) Not Available [facility] 4 02:48:23 Otorrhea of right ear 13546554652 63428 Active 2015 Otorrhea , right ear; Note: Date Diagnose d: 6 10:53 AM (H92.11) Not Available [facility] 4 02:48:27 Tinnitus of left ear 40063425537 06 Active 2015 Tinnitus , left ear; Note: Date Diagnose d: 6 1:49 PM (H93.12) Not Available [facility] 4 02:48:21 Pain of temporom andibula r joint 44356387 Active 2017 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, unspecif ied side; Note: Changed from M26.62 to M26.629 (01/08/20 23 2:39 PM) , Date Diagnose d: 11/17/2017 2:11 PM (M26.62) Not Available [facility] 4 02:48:26 Otalgia of left ear 9245853303 Active 2017 Otalgia, left ear; Note: Date Diagnose d: 11/17/2017 2:11 PM (H92.02) Otalgi a, left ear; Note: Date Diagnose d: 6 1:23 PM (H92.02) ; Start Date : 06/27/19 16 Not Available [facility] 4 02:48:25 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 2013 Adhesive middle ear disease, unspecif ied as to involvem ent; Location : right CM S Risk: minimal risk CMS Treatmen t: self-cabrera ited or minor problem Conditio n: worse No te: Date Diagnose d: 4 4:36 PM (385.10) , Patient has a mild right anterior retracti on and left myringo- incudope xy Not Available [facility] 4 02:48:23 Sensorin eural hearing loss 17818625 Active 2015 Sensorin eural hearing loss, unilater al, left ear, with unrestri cted hearing on the contrala teral side; Note: Date Diagnose d: 6 3:27 PM (H90.42) Not Available [facility] 4 02:48:28 Disorder of nasal sinus 3633729 Active 2020 Other specifie d disorder s of nose and nasal sinuses; Note: Date Diagnose d: 06/08/20 21 10:31 AM (J34.89) Not Available [facility] 4 02:48:20 Disorder of the nose 95789572 Active 2020 Other specifie d disorder s of nose and nasal sinuses; Note: Date Diagnose d: 06/08/20 21 10:31 AM (J34.89) Not Available [facility] 4 02:48:21 Psoriasi s 4400911 Active 2019 Other psoriasi s; Note: Date Diagnose d: 0 11:50 AM (L40.8) Not Available [facility] 4 02:48:27 Sensorin eural hearing loss in left ear 89601842204 109 Active 2015 Sensorin eural hearing loss, unilater al, left ear, with restrict ed hearing on the contrala teral side; Note: Date Diagnose d: 06/01/20 16 2:10 PM (H90.A22 ) Not Available [facility] 4 02:48:29 Sensorin eural hearing loss of bilatera l ears 883086093 Active 2019 SNHL Bilatera lly; Note: Date Diagnose d: 4 4:08 PM (389.18) , Patient with bilatera l sensorin eural hearing loss affectin g all frequenc ie. Recommen d amplific ation, patient provided with a copy of todays audiogra m, medical clearanc e for hearing aids, and a list of [facility] hearing aid dispense rs. Follow up as needed ; Start Date : 03/12/20 14 Senso rineural hearing loss, bilatera l; Note: Date Diagnose d: 04/28/20 20 11:59 AM (H90.3) Sensor ineural hearing loss, bilatera l; Note: Date Diagnose d: 6 1:49 PM (H90.3) ; Start Date : 06/27/19 16 Not Available [facility] 4 02:48:24 Chronic serous otitis media of left ear 634891758 Active 2015 Chronic serous otitis media, left ear; Note: Date Diagnose d: 6 2:21 PM (H65.22) Not Available [facility] 4 02:48:28 Chronic serous otitis media 10547559 Active 2013 Chronic serous otitis media; Location [...] given severity of hearing loss Not Available 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 Other specifie d superfic ial mycoses; Note: Date Diagnose d: 7 1:41 PM (B36.8) Not Available [facility] 4 02:48:28 Dysfunct ion of eustachi an tube 11608386 Active 2013 Eustachi an tube dysfunct ion; Note: Date Diagnose d: 4 4:08 PM (381.81) Not Available [facility] 4 02:48:25 Otalgia 40324614 Active 2014 Otalgia; Note: Date Diagnose d: 5 2:02 PM (388.70) Not Available [facility] 4 02:48:29 Referred otalgia 15067699 Active 2019 Otalgia secondar y to TMJ; Note: Date Diagnose d: 0 2:21 PM (388.72) Not Available [facility] 4 02:48:30 Impacted cerumen 58575968 Active 2014 Impacted cerumen; [facility] Treatmen t: lupillos hed problem (to examiner ): stable or improved Note: Date Diagnose d: 5 1:42 PM (380.4) Not Available [facility] 4 02:48:23 Itching of skin 029577311 Active 2019 Other pruritus ; Note: Date Diagnose d: 0 2:25 PM (L29.8) [facility] 4 02:48:21 Impacted cerumen in right ear 84817510955 81119 Active 2016 Impacted cerumen, right ear; Note: Date Diagnose d: 7 4:26 PM (H61.21) Not Available [facility] 4 02:48:26 Impacted cerumen of bilatera l ears 47953427649 24109 Active 2016 Impacted cerumen, bilatera l; Note: Date Diagnose d: 7 1:58 PM (H61.23) Not Available [facility] 4 02:48:29 Chronic serous otitis media of right ear 990956937 Active 2015 Chronic serous otitis media, right ear; Note: Date Diagnose d: 6 3:57 PM (H65.21) Not Available [facility] 4 02:48:25 Bilatera l disorder of Eustachi an tubes 53740752305 61032 Active 2015 Other specifie d disorder s of Eustachi an tube, bilatera l; Note: Date Diagnose d: 6 2:21 PM (H69.83) Not Available [facility] 4 02:48:27 Otalgia of right ear 9739413426 Active 2017 Otalgia, right ear; Note: Date Diagnose d: 8 10:49 AM (H92.01) Otalgi a, right ear; Note: Date Diagnose d: 5 2:03 PM (H92.01) [mapped from ICD9 code: 388.70] ; Start Date : 01/03/20 15 Not Available [facility] 4 02:48:22 Chronic serous otitis media 82219894 Active 2023 JABARI DELVALLE MD [address] [place] [address],[address], [address] , [place] - [facility] 4 16:07:04 Problem Notes None recorded. Procedures Surgical History Date Name Laterality Status Provider Name and Address Organization Details Recorded Time 06/18/19 25 Air & Speech Audio with Tymps - 60449, 06424 & 99353 completed BALA WASSERMAN [address] [place] [address],[place] [address], [place], [address], [facility] - [facility] [place] 06/18/2024 15:27:33 05/18/20 24 MYRINGOTOMY, BILATERAL, WITH TUBE INSERTION (SURG) completed Freedom Lozano [place] - [facility] [place] 05/21/2024 11:01:39 01/24/20 24 Cerumen removal with microscope bilateral completed JABARI DELVALLE MD [address] [place] [address],[address], [address], [place] - [facility] [place] 01/24/2024 16:10:57 11/24/19 24 Cerumen removal without microscope bilat completed ANTHONY APONTE PA-C [address] [place] [address], [place], [address], [place] - [facility] 11/24/2023 17:07:33 11/24/19 24 Tympanometry - 45830 completed Roxy Rico [place] - [facility] 11/24/2023 16:43:26 11/24/19 24 Air & Bone Audio - 61092 completed Roxy Rico [place] - [facility] 11/24/2023 16:45:17 Myringotomy Tube Placement completed Amber Kebede [place] - [facility] 01/24/2024 15:34:07 Imaging Results Imaging Date Name Status LastModified by [facility]3] Details LastModified Time 11/28/2023 audiogram completed BARCODE [...] mg tablet 2020 active Medicati on ID: [id number] B rand Name: atorkassandrat atmonique Joya d Method: E-Prescr ibed Sub s Allowed: subs OK Medic ationGen ericName : atorvast atin Not Available Not Available Not Available bupropion HCl SR 150 mg tablet,12 hr sustained -release 2020 active Medicati on ID: 825161 B rand Name: bupropio n HCl Send [...] topical cream 06/08 completed Medicati on ID: 696701 B rand Name: Lotrison e Send Method: E-Prescr ibed Sub s Allowed: subs OK Speci al Instruct ion: apply to external ear tid X 2 weeks Me dication GenericN emily: Lotrison e Medica tion ID: [id number] B rand Name: Lotrison e Send Method: E-Prescr ibed Sub s Allowed: subs OK Speci al Instruct ion: apply to external ear tid X 2 weeks Me dication GenericN emily: Lotrison e Not Available Not Available Not Available clotrimaz ole-betam ethasone 1 %-0.05 % lotion 06/08 completed Medicati on ID: [id number] P [place] By Name: TONNY Tejeda [...] topical cream 01/23 completed Medicati on ID: 836981 B rand Name: betameth asone, augmente d Send Method: E-Prescr ibed Sub s Allowed: subs OK Medic ationGen ericName : betameth asone, augmente d Not Available Not Available Not Available Ciloxan 0.3 % eye drops 01/23 completed Medicati on ID: 664360 D uration Value: 3 Prescri bed By [...] layed release 2020 active Medicati on ID: 484205 B rand Name: aspirin Send Method: E-Prescr [...] applicato r 2020 active Medicati on ID: 317401 B rand Name: hydrocor tisone S end [...] mg capsule 2020 active Medicati on ID: 578576 B rand Name: tamsulos in Send Method: [...] right ear 01/23 completed Medicati on ID: [id number] Pr escribed By Name: TONNY Crisostomo nd Name: antipyri ne-benzo rohan Se nd Method: E-Prescr ibed Sub s Allowed: subs OK Robby al Instruct ion: as needed for discomfo rt Medic ationGen ericName : antipyri ne-benzo rohan Not Available Not Available Not Available hydrocort isone 1 % topical cream 2020 active Medicati on ID: 693487 B rand Name: hydrocor tisone S end [...] mg tablet 2020 active Medicati on ID: 770813 B rand Name: lisinopr il Send Method: [...] mg tablet 2020 active Medicati on ID: 726259 B rand Name: loratadi ne Send Method: [...] topical cream 06/08 completed Medicati on ID: 177774 Dariana daniels By Name: TONNY Tejeda nd [...] 24 hr 2020 active Medicati on ID: 435836 B rand Name: alfuzosi n Send Method: [...] mg capsule 2020 active Medicati on ID: 803320 B rand Name: pregabal in Send Method: E-Prescr ibed Sub s Allowed: subs OK Medic ationGen ericName : pregabal in Not Available Not Available Not Available antipyrin e-benzoca ine 3 drop into right ear as directed 06/08 completed Medicati on ID: [id number] Br and Name: antipyri ne-benzo rohan Se [...] mg capsule 2020 active Medicati on ID: 033169 B rand Name: Fish Oil Send Method: E-Prescr ibed Sub s Allowed: subs OK Medic ationGen ericName : Fish Oil Not Available Not Available Not Available hydrochlo rothiazid e 12.5 mg tablet TAKE 1 TABLET BY MOUTH EVERY DAY IN THE MORNING active Not Available Not Available No t Available Athlete's Foot (clotrima zole) 1 % topical cream 01/23 completed Medicati on ID: 943419 D uration Value: 14 Prescri bed By [...] mg tablet 2020 active Medicati on ID: 506635 B rand Name: Eliquis Send Method: E-Prescr [...] Updated DateTime 08/24/2024 182.88 cm 38.7 kg/m2 775789.83 g Kayla Chacko [place] - [facility] 08/24/2024 14:36:20 Date Recorded Body height Body mass index (BMI) Body weight Provider Name and Address Organization Details Last Updated DateTime 01/24/2024 182.88 cm 38 kg/m2 095383.86 g Amber Kebede [place] - [facility] 01/24/2024 15:28:13 Date Recorded Body height Body mass index (BMI) Body weight Provider Name and Address Organization Details Last Updated DateTime 11/24/2023 182.88 cm 38 kg/m2 393031.86 g Barbie Ramos [place] - [facility] 11/24/2023 16:09:06 Social History Question Answer Notes LastModified by Organizat ion Details LastModified Time Tobacco Smoking Status Former Smoker JABARI DELVALLE MD [address] [place] [address], [address], [facility] - [facility] 01/24/2024 16:04:47 When Did You Quit Smoking? 1-5yearssinc elastcigaret te [email or web address] Information not available 01/24/2024 Sex: Unknown Functional Status None recorded. Mental Status None recorded. Family History Nothing Reported. Medical History Condition Response Anxiety Y Depression Y Sleep Disorder Y Past Encounters Encounter ID Performer Location Encounter Start Date Encounter Closed Date Diagnosis/Indication Diagnosis SNOMED-CT Code Diagnosis ICD10 Code Diagnosis Note [id number] ANTHONY APONTE PA-C [facility] [address] [phone] 11/24/2023 15:43:29 11/24/2023 17:00:35 Bilateral disorder of Eustachian tubes 2382425043 339387 H69.83 Impacted c erumen of bilateral ears 0762129834 654817 H61.23 Otalgia of right ear 937 6510511 H92.01 Mixed cond uctive and sensorineural hearing loss of right ear 7335453237 9105 H90.A31 Profound mixed hearing loss and a Type C tympanogra m noted in the right ear. Severe to profound sensorineu ral hearing loss and a Type B tympanogra m with large volume noted in the left ear. Sensorineu ral hearing loss in left ear 3655406530 9109 H90.A22 Acute sero us otitis media of right ear 6448016543 401648 H65.01 [id number] JABARI DELVALLE MD [facility] [address] [address] 01/24/2024 15:09:42 01/24/2024 16:10:53 Bilateral disorder of Eustachian tubes 8052908794 994723 H69.83 Chronic se emmie otitis media 58770422 H65.21 Sensorineu ral hearing loss of bilateral ears 580480803 H90.3 Impacted c erumen of bilateral ears 4790798610 880297 H61.23 [id number] ROLANDO FREY PA-C [facility] [address] [address] 06/18/2024 15:02:45 06/18/2024 16:05:21 Bilateral disorder of Eustachian tubes 0056335794 621651 H69.93 Right Ear:Modera te to severe SNHL with excellent speech discrimina tion.Paten t tube.Left Ear:Modera te to severe SNHL with excellent speech discrimina tion.Paten t tube. Psoriasis 6057545 L40.9 [id number] JAH WILKERSON PA-C [facility] [address] [address] 08/24/2024 14:29:50 08/24/2024 14:55:40 Pain of temporomandibular joint 80723418 M26.629 Bilateral disorder of Eustachian tubes 8230197842 927549 H69.93 Health Concerns Section Related Observation LastModified by Organization Detai ls LastModified Time None Recorded Concern Status LastModified by Organization Details LastModified Time None Recorded Advance Directives Directive None Recorded Payers Encounter Date Sequence Insurance Name Policy Number Policy Simon Covered Member ID Simon Member ID Guarantor Name 11/24/2023 1 [facility] [place] ([place] REPLAC[place]/ADV ANTAGE - HMO) Steven Subramanian [id number] Steven Subramanian 01/24/2024 1 [facility] - DOS ON OR AFTER 2022 - [employer] (MEDICARE REPLACEMENT/ADV ANTAGE - HMO) Steven Subramanian [id number] Steven Salazar Moris 06/18/2024 1 [facility] - DOS ON OR AFTER 2022 - [employer] (MEDICARE REPLACEMENT/ADV ANTAGE - HMO) Steven Salazar Moris [id number] Steven Salazar Moris 08/24/2024 1 [facility] - DOS ON OR AFTER 2022 - [employer] (MEDICARE REPLACEMENT/ADV ANTAGE - HMO) Steven Salazar Moris [id number] Steven Salazar Moris Notes Date Note Type [...] ears with improvement. DMITRI LEE MD [address] [facility],[address], [address], [facility] 11/25/2023 17:06:21 01/24/2024 text/html 58-year-old male with history of recurrent cerumen impaction, psoriasis affecting the external ears, and ETD s/p T-tube placement in March 2016 with mo presents for follow up of ETD. He [...] patent. Patient has binaural amplification dispensed at [facility]. JABARI DELVALLE MD [address] [facility],[address], [address], [facility] 01/24/2024 16:11:26 06/18/2024 text/html 59 year [...] not bring them today. Got them in [place] some years ago. He does not have tinnitus. MARY ELLEN FOOTE MD [address] [place] [address], [address], [facility] - [facility] 06/18/2024 21:22:33 08/24/2024 text/html 59-year-old male with T tubes presents for reevaluation of right ear pain. He reports minimal improvement with topical DermOtic. This pain occurs 2-3 times weekly. He denies inciting events. He does have a history of arthritis. FAITH MEDINA MD [address] [place] [address],[address], [address], [facility] - [facility] 08/26/2024 08:15:56
--- OUTSIDE RECORDS SUMMARY | 2024-10-16 15:37 | XMS_ITS | Data Portability ---
Author Organization [place] [employer] [facility], [place] - [facility] Address [address] [place] [phone] Care Team Providers Care Inside Sales Account Executive Name Role Phone [facility] Referring Provider HIM CCA OTHER Assessment No assessment recorded. Plan of Treatment Reminders Order Date Submit Date Provider Last Modified By Organization Details Last Modified Time Details Appointments None recorded. Lab glucose, fingerstick , blood 2024 025 [facility], [address] [place] [address], [phone] 5 19:56:40 Referral None recorded. Procedures None recorded. Surgeries None recorded. Imaging None recorded. Medication Orders cephalexin 500 mg capsule 2023 024 [id number], [address] [place], [address], 4 20:15:29 cephalexin 500 mg capsule 2023 024 [email or web address] Not available 4 20:15:27 Patient TargetsNo targets recorded. Patient InstructionsNo instructions recorded. Reason for Referral None Reported. Results Created Date Observation Date Name Description Value Unit Range Abnormal Flag Note LastModifiedBy Organization Detail LastModifiedTime Result Notes None recorded. Medical Equipment None Reported. [...] Available Not Available No t Available omega 4-drv-fvd-fi sh oil 1,000 mg (120 mg-180 mg) [...] Updated DateTime 4 86 /min 18 /min 375101. 72 g 98.6 [degF] 98 % 98 % 154 mm[Hg] 94 mm[Hg] Not Available [employer] 4 20:11:37 Date Recorded Respiratory rate Oxygen saturation Oxygen saturation in Arterial blood by Pulse oximetry Body temperature Heart rate Systolic blood pressure Diastolic blood pressure Provider Name and Address Organization Details Last Updated DateTime 2 20 /min 94 % 94 % 97.7 [degF] 74 /min 125 mm[Hg] 75 mm[Hg] Not Available [employer] 2 07:41:40 Date Recorded Oxygen saturation Oxygen saturation in Arterial blood by Pulse oximetry Heart rate Respiratory rate Body temperature Systolic blood pressure Diastolic blood pressure Provider Name and Address Organization Details Last Updated DateTime 5 100 % 100 % 73 /min 18 /min 97.8 [degF] 158 mm[Hg] 102 mm[Hg] Not Available [employer] 5 15:34:41 Social History None recorded. Functional Status None recorded. Mental Status None recorded. Family History Nothing Reported. Medical History No medical history recorded. Past Encounters Encounter ID Performer Location Encounter Start Date Encounter Closed Date Diagnosis/Indication Diagnosis SNOMED-CT Code Diagnosis ICD10 Code Diagnosis Note [id number] Lucia Khoury MD [facility] [address] [place] [phone] 12/05/2021 07:41:38 02/10/2022 10:34:04 History of deep vein thrombosis 337167396 Z86.718 56 year old male with chronic [...] primary regarding why this change was made. [id number] Arsalan Vera MD [facility] [address] [place] [phone] 06/23/2023 20:11:26 06/23/2023 22:45:58 Cellulitis of left lower limb [id number] L03.116 Reports increased redness and swelling of LLE. On enoxaparin for history of DVT. No new swelling. Pulses normal per quality assurance nurse. No fevers, chills, systemic symptoms. Plan for empiric treatment with cephalexin and PCP follow-up [id number] Ashely Infante MD [facility] [address] [place] [phone] 10/06/2024 15:28:53 10/06/2024 18:43:01 Chronic ulcer of skin 43802221 L98.499 As noted, we were called to see this patient regarding concerns of wound Evaluation in the field was performed by my quality assurance nurse colleague, as noted above, I provided real-time direction and supervisio n for this visit. The evaluation revealed 59 yo man with HTN who calls for a skin ulcer. He has had a left calf ulcer since June after he had varicose vein surgery. He was seen at [facility] wound care clinic last week and told it looks fine and continue to let it heal. He is following up with them next tuesday.He is HTN to 158/102; he has not taken his lisinopril yet, as he just didnt get to it. He is also concerned about dyspnea he thinks has been ongoing for at lest 1-2 months. He saw his PCP last month, though he does not recall the visit. He did not discuss his dyspnea based on notes I reviewed. He appears well on exam without dyspnea or abnormal respirator y sounds. Impression :chronic LE wound Plan:Isaiah nue care as planned including follow up with wound care Dispositio n: We discussed the diagnostic uncertaint y of home visits and the risk associated with this. In this case, the patient and I felt this to be an acceptable and reasonable amount of risk given the benefit of avoiding an ED visit. We discussed the need to seek care urgently/e mergently in the setting of any new or worsening serious symptoms, particular ly changes to consciousn ess, chest pain, dyspnea. Health Concerns Section Related Observation LastModified by Organization Detai ls LastModified Time None Recorded Concern Status LastModified by Organization Details LastModified Time None Recorded Advance Directives Directive None Recorded Payers Encounter Date Sequence Insurance Name Policy Number Policy Simon Covered Member ID Simon Member ID Guarantor Name 12/04/2021 1 [facility] - DOS PRIOR TO 2022 - DUAL ELIGIBLE (MEDICARE REPLACEMENT/ADV ANTAGE - HMO) Steven Subramanian [id number] Steven Subramanian 06/23/2023 1 [facility] - DOS ON OR AFTER 2022 - DUAL ELIGIBLE - USP OPTIONS AND ONE CARE (MEDICARE REPLACEMENT/ADV ANTAGE - HMO) Steven Subramanian [id number] Steven Subramanian 10/06/2024 1 [facility] - DOS ON OR AFTER 2022 - DUAL ELIGIBLE - USP OPTIONS AND ONE CARE (MEDICARE REPLACEMENT/ADV ANTAGE - HMO) Steven Subramanian [id number] Steven Subramanian Notes Date Note Type Note Provider Name and Address Organization Details Recorded Time 12/04/2021 text/html HPI: History of recurrent DVT's Lovenox decreased recently. Patient called with increased pain in right leg. Feels shaky. No accident or injury. No redness and slight swelling. Declined ED .................... .................... .................... .................... .................... .................... .................... . CRC Nursing Assessment: Comments: CRC RN did not require any additional information to process this visit .................... .................... .................... .................... .................... .................... .................... . Admin Prog Coord Note: Patient bilateral lower extremity pain times two days. Patient switched from Lovenox to find a parent approximately six days ago without explanation. What are signs remarkable for hypoxia at 93 to 94% on [place]. Bilateral lower extremities positive Homans sign. Distal pulse, motor and sensation intact all extremities. Patient will switch back to Lovenox for the weekend and contact his PCP Tuesday. Patient knows to call 911 if chest pain or shortness of breath suddenly. .................... .................... .................... .................... .................... .................... .................... . Disposition: Fulfilled Lucia Khoury MD [address] [place] [address],[address] [facility], [place], [phone], [employer] 12/05/2021 07:49:52 06/23/2023 text/html HPI: Chronic deep vein thrombosis (DVT) of left lower extremity 09/2018 Paatient seen by PCP 05/31/23 continues on Lovenox and compression stockings. No missed doses per patient. Increased pain and burning with ambulation. .................... .................... .................... .................... .................... .................... .................... . CRC Nurse Triage Notes (Mini Roche): Comments: Attempted to call for further information- No answer- Denisse Roche RN .................... .................... .................... .................... .................... .................... .................... . Admin Prog Coord Note From Gatito Rios: Pt co itchy redness on left lower extremity that is also painful. Pt denies fever nausea vomiting diarrhea. Baseline vitals assessed. Extremity redish warm to touch . No edema. [facility] contacted pics uploaded ?500mg keflex given po and RX called in . Pt education on signs indicating the ER. .................... .................... .................... .................... .................... .................... .................... . Disposition: Fulfilled Arsalan Vera MD [address] [place] [address],[address] [facility], [place], [phone], [employer] 06/23/2023 21:40:40 10/06/2024 text/html HPI: Pt called with concerns about having diabetes, increased urination occurring. Pt also reports an ulcer Left lower extremity that is not healing. WIC at [facility] is closed at this time unable to see Pt. Advised will send someone to evaluate blood sugar and wound status. .................... .................... .................... .................... .................... .................... .................... . CRC Nurse Triage Notes (Sae Mendez): Chief Complaints: Wound Care, Diabetes Related PMH: Hypertension, Anxiety Disorder, Benign Prostatic Hyperplasia (BPH), Cigarette Smoker, Deep Vein Thrombosis, Osteoarthritis PMH Reviewed at 10/05/2024:39 Allergies Reviewed at 10/05/2024:39 Comments: HPI reviewed by this RN, no further information needed to process visit -Adriel Mendez RN .................... .................... .................... .................... .................... .................... .................... . Admin Prog Coord Note From Oj Hoffmann: Encountered patient conscious, alert and ambulatory. Patient reports he underwent a surgery to address varicose veins, which resulted in him returning to the office to have a ? p oint? removed, leaving an approximately 9ixw1pe ulcer. Patient reports it is not weeping, but is painful. Patient additionally reports intermittent shortness of breath, which has been occurring for over a month now, denies chest pain, nausea, vomiting, or dizziness. Skin is warm, dry and of appropriate color for ethnicity. Head and neck, free of trauma and edema. -JVD. Breath sounds present clear and equal bilaterally. Abdomen is soft, non-tender, and non-distended. Extremities free of trauma and edema; left calf region exhibits ulcer. [facility] contacted: reports patient is currently under care of both a wound care clinic and a primary care physician which are attending his needs. [facility] strongly encourage his patient to attend his wound care appointment on 10/08/24 and to contact his primary care physician in order to schedule a sooner appointment; patient is due to see primary care on 11/16/24. [facility] additionally states that if the wound care clinic which patient sees has a specific wound care plan in place that that should be followed. Patient was advised to monitor for fevers, chest pain, or shortness of breath that does not subside and to seek further medical attention, including 911 if those symptoms should arise. Patient verbalizes understanding of the plan and is comfortable with remaining home at this time. .................... .................... .................... .................... .................... .................... .................... . [facility] Consulted: Ashely Infante .................... .................... .................... .................... .................... .................... .................... . Disposition: Elif Infante MD [address] [facility], [place], [phone], [employer] 10/06/2024 17:19:28
--- OUTSIDE RECORDS SUMMARY | 2024-10-16 15:37 | XMS_ITS | Clinical Summary ---
Author Organization [employer] Address [address] [facility] 7t [place] [address] Care Team Providers Care Apparel Sales Associate Name Role Phone Name, Leland MIMS Primary Care Provider [phone] Allergies No known active allergies Medications * [...] crush, chew, or split. 100 tablet 1 Active lisinopril 10 MG tablet Take 1 [...] AREA(S) TWICE DAILY 100 g 025 Active DULoxetine (Cymbalta) [address] capsule Take 1 capsule (30 mg) by mouth 2 times daily. Do not crush or chew. 60 capsule Active Xarelto 20 MG tablet Take 1 tablet (20 mg) by mouth with evening meal. 30 tablet 025 2025 Active tiZANidine (Zanaflex) 4 MG tablet Take 1 tablet (4 mg) by mouth every 8 (eight) hours if needed for muscle spasms for up to 20 days. 60 tablet 025 2024 Active zolpidem (Ambien) 10 MG tabletIndicatio ns:Insomnia, unspecified type TAKE 1 TABLET BY MOUTH AT BEDTIME NEEDED FOR SLEEP 28 tablet Active DULoxetine (Cymbalta) [address] capsule TAKE 1 CAPSULE BY MOUTH TWICE DAILY. DO NOT BREAK, CRUSH, DISSOLVE OR CHEW 60 capsule 025 2024 Discontinued(R eorder (will not trigger notification to Pharmacy)) Xarelto 15 MG tablet Take 15 mg by mouth. 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 side effects (weight gain, [...] twice a day for 10 days I educational guidance counselor patient that if problem persists or [...] the hospital, case was presented to [facility] I let them know patient should have a CTA to r/o pulmonary embolism Connell's cyst of knee, right 02/07/2024 Assessment & Plan (02/07/2024 3:06 PM EDT): I will refer him to orthopedics to address his pain Hammer toe of right foot 03/29/2023 023 Neuropathy 03/29/2023 03/29/2023 Other acquired deformities of left foot 03/29/20 23 03/29/2023 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 Patient follows at [facility] and has been treated with injections Claustrophobia [...] Encounters Date Type Department Care Team Description 10/16/2024 Orders Only GENERIC EXTERNAL DATA DEPARTMENT Provider, Generic External Data 10/11/2024 Refill [facility] [address] [place], [place] [phone] Leland Brandon MD Insomnia, unspecified type 10/09/2024 Telephone [facility] [address] [place] [address] Kelsi Huff, ANNITA 10/05/2024 Telephone [facility] [address] [place] [address] Leland Brandon MD Call Back Request 09/20/2024 Telephone [facility] [address] [place] [phone] Leland Brandon MD Med Refill; NTTS 09/19/[address] [address] Leland Brandon MD Durable Medical Equipment 09/17/2024 10:15 AM EDT Office Visit [facility] [address] [place] [address] Leland Brandon MD Ulcer of left lower leg associated with varicose veins (CMS/HCC) (Primary Dx); Chronic deep vein thrombosis (DVT) of left lower extremity, unspecified vein (CMS/HCC); Chronic pain syndrome 09/17/2024 Travel 09/12/2024 Refill [facility] [address] [place] [address] Leland Brandon MD Insomnia, unspecified type 09/10/2024 Patient Outreach [facility] [address] [place] [address] Leland Brandon MD Pre-visit Planning (SDOH negative, Tobacco screening negative.) 09/06/2024 Refill [facility] [address] [place] [address] Leland Brandon MD Low back pain due to bilateral sciatica 08/31/2024 Orders Only [facility] External Provider, [facility] 08/30/2024 10:00 AM EDT Office Visit [facility] [address] [place] [address] Leland Brandon MD Acute deep vein thrombosis (DVT) of left lower extremity, unspecified vein (CMS/HCC) (Primary Dx); Ulcer of left lower leg associated with varicose veins (CMS/HCC); Chronic midline low back pain with sciatica, sciatica laterality unspecified 08/30/2024 Telephone [facility] [address] [place] [address] Leland Brandon MD Call Back Request 08/30/2024 Travel 08/27/2024 Telephone [facility] [address] [place] [address] Leland Brandon MD Nurse Triage 08/20/2024 3:20 PM EDT Office Visit [facility] [address] [place] [address] Leland Brandon MD Left leg pain (Primary Dx); Presence of IVC filter; Recurrent deep vein thrombosis (CMS/HCC); Cellulitis of left lower extremity; Ulcer of left lower leg associated with varicose veins (CMS/HCC); Venous stasis dermatitis of both lower extremities; Hand eczema 08/17/2024 Patient Outreach [facility] [address] [place] [address] Leland Brandon MD Transition Of Care (Tcm) (HDF scheduled) 08/17/2024 [place] [address] Leland Brandon MD Hospital Follow-up 08/16/2024 [place] [address] Leland Brandon MD Insomnia, unspecified type 08/07/2024 1:15 [place] [address] Stacey Wade MD Cellulitis of left lower extremity (Primary Dx); Neurogenic claudication due to lumbar spinal stenosis 08/07/2024 Travel 08/06/2024 [place] [address] Leland Brandon MD Nurse Triage 08/01/2024 2:15 [place] [address] Leland Brandon MD Cellulitis, unspecified cellulitis site (Primary Dx); Chronic pain syndrome; Tremor of both hands 07/26/2024 [place] [address] Leland Brandon MD FYI 07/25/2024 Refill [facility] [address] [place] [address] Stacey Wade MD Lumbago with sciatica, right side 07/24/[address] [address] Leland Brandon MD REQUEST ER NOTES; Med Refill (Patient walked in requesting med refill for Dexamethasone 4mg patient stated he went to pharmacy to get medication and theres no medication in the pharmacy ) 07/24/2024 [place] [address] Leland Brandon MD Verbal Order 07/24/2024 Telephone [facility] [address] [place] [address] NameLeland MD Nurse Triage 07/20/2024 Orders Only [facility] [address] [place] [address] NameLeland MD Severe low back pain (Primary Dx); Radicular leg pain from Last 3 Months Immunizations Name Administration [...] Description 11/16/2024 9:00 AM EDT Office Visit [facility] [address] [place] [address] Name, MD Leland [facility] [place] [address] Health Maintenance Due Date Last Done Comments CT Colonography 1965 FIT DNA/Cologuard 1965 FIT 1965 FOBT 1965 Sigmoidoscopy 1965 RSV Patients and Patients Aged 60 years or older (1 - Risk 60-74 years 1-dose series) 2023 COVID-19 Vaccine (2023- season) 2024 06/18/2021, 10/30/2020, 10/02/2020 Depression Screening [...] AUTO DIFFERENTIAL Routine 10/16/2024 2:57 PM EDT AMB REFERRAL TO NEUROLOGY Routine 09/25/2024 Tremor of both hands XR LUMBAR SPINE COMPLETE 4+ VIEWS Routine 08/31/2024 2:06 PM EDT TSH W/REFLEX TO FT4 Routine 08/01/2024 3 :05 PM EST Tremor of both hands HEPATITIS C AB W/REFL TO HCV RNA, [...] Recently Relevant to Health Maintenance Results * (ABNORMAL) CBC auto differential (10/16/2024 2:57 PM EDT) White Blood Count 9.1 4.8 - 10.8 X10*3/uL [facility] Red Blood Count 4.14(L) 4.60 - 5.80 X10*6/uL [facility] Hemoglobin 12.7(L) 14.0 - 18.0 g/dl [facility] Hematocrit 39.8(L) 42.0 - 52.0 % [facility] Mean Corpuscular Volume 96.1 80.0 - 98.0 fL [facility] Mean Corpuscular Hemoglobin 30.7 27.0 - 33.0 pg [facility] Mean Corpuscular HGB Conc 31.9 31.0 - 36.0 g/dl [facility] Red Cell Distribution Width 14.4 11.0 - 16.0 % [facility] Platelet Count 213 160 - 400 X10*3/uL [facility] Mean Platelet Volume 10.2 9.4 - 12.4 fL [facility] Neutrophils Percent Auto 74.5(H) 45 - 73 % [facility] Imm Gran Pct Auto 0.7(H) 0.0 - 0.4 % [facility] Lymphocytes Percent Auto 15.1(L) 20 - 40 % [facility] Monocytes Percent Auto 8.4 2 - 11 % [facility] Eosinophils Percent Auto 1.2 0 - 4 % [facility] Basophils Percent Auto 0.1 0 - 2 % [facility] NRBC Pct Auto 0.0 0.0 - 0.2 /100WBC [facility] Neutrophils Absolute Auto 6.8 2.0 - 8.3 x10*3/uL [facility] Imm Gran Abs Auto 0.06(H) 0.00 - 0.03 X10*3/uL [facility] Lymphocytes Absolute Auto 1.4 1.2 - 4.9 X10*3/uL [facility] Monocytes Absolute Auto 0.8 0.1 - 1.2 X10*3/uL [facility] Eosinophils Absolute Auto 0.1 0.0 - 0.4 X10*3/uL [facility] Basophils Absolute Auto 0.0 0.0 - 0.2 X10*3/uL [facility] NRBC Abs Auto 0.000 0.0 - 0.012 X10*3/uL [facility] 10/16/2024 2:57 PM EDT 10/16/2024 2:57 PM EDT us Generic External Data Provider LAB BLOOD ORDERAB LES Final Result [facility] [address] [place] [address] [phone] * Referral to Neurology (09/25/2024) us Leland Name MD OUTPATIENT REFERRAL ORDERABLES E dited Result - Final * XR Lumbar Spine Complete 4+ Views (08/31/2024 2:06 PM EDT) Anatomical Region Laterality Modality Spine, L-spine Radiographic Rasheeda ging 08/31/2024 2:06 PM EDT Narrative 09/03/2024 1:46 PM EDT ? [facility] ? [address] ?[place] [address] ?XRay Report ? Signed ? Patient: Steven Novak ?MR#: M ?? [id number] ? : 1965 ?Acct:[id number] ? Age/Sex: 59 / M ?ADM Date: 08/31/24 ? Loc: HO.HOSX ? Attending Dr: Francisco MCKEON ? Ordering Physician: Francisco Velez ?? Date of Service: 08/31/24 ?? Procedure(s): XR lumbar spine 4V min ?? Accession Number(s): [id number] ? cc: Francisco Velez; Leland Brandon MD ? EXAMINATION: ??XR LUMBAR SPINE 4 OR [...] DD/ 1406 ? TD/TT: 08/31/24 1410 ? Grounding Engineer: ? Procedure Note Donmodestointerpreter, Image - 09/03/2024 [facility] [address] [place] [address] [address] [place] [address] XRay Report Signed Patient: Michele Novak#: M [id number] : 1965Acct:[id number] Age/Sex: 59 / MADM Date: 08/31/24 Loc: L[facility] Attending Dr: Francisco MCKEON Ordering Physician: Francisco Velez Date of Service: 08/31/24 Procedure(s): XR lumbar spine 4V min Accession Number(s): [id number] cc: Francisco Velez; Name,Leland MIMS EXAMINATION: XR [...] degenerative disc disease. Electronically signed by: Cristian Herron MD 09/03/2024 01:43 PM EDT RP Dictated By: Cristian Herron MD Signed By: <Electronically signed by Cristian Herron MD in OV> 09/03/24 1343 DD/ 1406 TD/TT: 08/31/24 1410 Grounding Engineer: [facility] External Provider IMG XR PROCEDURES Final Result * TSH W/Reflex to FT4 (08/01/2024 3:05 PM EST) Pathologist [facility] TSH reflex Free T4 0.69 0.32 - 4.0 uIU/mL [facility] Blood Venous blood specimen / Unknown 08/01/2024 3:05 PM EST 08/01/2024 4:20 PM EST Leland Brandon MD LAB BLOOD ORDERABLES Final Resul t Performing Organization Address [facility] Co de Phone Number [facility] [address] [place] [phone] * Hepatitis C Antibody with Reflex to HCV, RNA, Quantitative, Real-Time PCR (10/14/2023 11:05 AM EDT) Pathologist [facility] Hepatitis C Antibody Nonreactive Nonreactive [facility] Comment:Antibodies to HCV no t detected; does not exclude early acuteHCV infection. Blood Venous blood specimen / Unknown 10/14/2023 11:05 AM EDT 10/14/2023 1:15 PM EDT us Leland Brandon MD LAB BLOOD ORDERABLES Final Resul t Performing Organization Address [facility] Co de Phone Number [facility] [address] [place] [phone] * HIV-1/2 Antigen and Antibodies, Fourth Generation, with Reflexes (10/14/2023 11:05 AM EDT) HIV AB/AG Nonreactive Nonreactive [facility] Comment:HIV-1 p24 Ag and/or HIV-1/HIV-2 Ab not detected.A test result that is nonreactive does not exclude thepossibility of exposure to or infection with HIV-1 and/orHIV-2. Nonreactive results in this assay for individualswith prior exposure to HIV-1 and/or HIV-2 may be due toantigen and antibody levels that are below the limit ofdetection of this assay.The [employer] HIV Ag/Ab Combo assay result andsupplemental assay results should be interpreted inconjunction with the patient's clinical presentation,history and other laboratory results. If the results areinconsistent with clinical evidence, additional testing issuggested to confirm the result. Blood Venous blood specimen / Unknown 10/14/2023 11:05 AM EDT 10/14/2023 1:15 PM EDT us Leland Brandon MD LAB BLOOD ORDERABLES Final Resul t [facility] [address] [place] [phone] * (ABNORMAL) Lipid Panel, Standard (10/14/2023 11:05 AM EDT) Triglycerides 105 <150 mg/dL [facility] Comment:Desirable Triglyceri de: less than 150 mg/dLBorderline High Triglyceride 150-199 mg/dLHigh Triglyceride: 200-499 mg/dLVery High Triglyceride: greater than or equal to 5OO mg/dL Cholesterol 192 <200 mg/dL [facility] Comment:Desirable Cholestero l: less than 200 mg/dLBorderline High Cholesterol: 200-239 mg/dLHigh Cholesterol: greater than 239 mg/dL LDL Cholesterol Calculated 102(H) <100 mg/dL [facility] Comment:Desirable LDL: less than 100 mg/dLNear Optimal/Above Optimal LDL: 110- 129 mg/dLBorderline High LDL: 130-159 mg/dLHigh LDL: 160-189 mg/dLVery High LDL: greater than or equal to 190 mg/dL HDL Cholesterol 69 >40 mg/dL [facility] Comment:Desirable HDL: great er than 40 mg/dL Note: This HDL assay may give artificially low results in patients with liver disease. Blood Venous blood specimen / Unknown 10/14/2023 11:05 AM EDT 10/14/2023 1:15 PM EDT us Leland Brandon MD LAB BLOOD ORDERABLES Final Resul t [facility] [address] [place] [phone] * Hm Colonoscopy (07/14/2023) Colonoscopy Normal Normal Comment:Normal Colonoscopy r epeat 10 years us Leland Brandon MD HEALTH MAINTENANCE Final Result from Last 3 Months or Most Recently Relevant to Health Maintenance Insurance [facility] < 63 [place] [phone] Care Teams Apparel Sales Associate Relationship Specialty Start Date End Date Name, MD Leland [address] [place] [address] PCP - General Family Medicine 08/26/15
== END 2024-10-16 14:42 | disposition home or self-care (01) ==
LOC: HO.HPS 14:17
PROVIDERS: PCP Internal Medicine Geriatric Medicine; Visit Provider Hospitalist
DX: G47.33 Obstructive sleep apnea (adult) (pediatric) (principal); G47.34 Idiopathic sleep related nonobstructive alveolar hypoventilation; R06.09 Other forms of dyspnea; J41.0 Simple chronic bronchitis; L03.116 Cellulitis of left lower limb
CPT/HCPCS: 99214

== ENCOUNTER 2024-10-22 13:00 | Outpatient (RCR) | payer OTHER, SELFPAY ==
[2024-09-25 11:10] VITALS: BP 130/60; PULSE 68; O2SAT 95
--- NOTE | 2024-09-26 09:14 | MHC.PT.EP ---
[facility] [place] Office [place] Office [place] Office [address] [place] [address] [phone] F: [phone] F: [phone] F: [phone] F: [phone] Physical Therapy Plan of Care Date of Evaluation: 09/25/24 Date of Surgery: Diagnosis: M48.062 Spinal stenosis, lumbar region with neurogenic claudication Spinal stenosis, lumbar region with neurogenic claudication, lumbar stenosis, L4-L5, eval and treat back pain, bilateral pain. 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 referred by Francisco Velez, 08/31/24 Pt expressing worsening sx over the past four months of back pain>radiating leg L>R pain (in sitting>standing, near constant. 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 Pt exhibits poor tolerance for ambulation, poor tolerance for sitting, has poor tolerance for transfers, has difficulty transitioning into standing, has limited tolerance sleeping reports constant radiating neurogenic claudication L>R. Pt has active wounds x 2 on L LE and 1 R LE (in active care of wound care center at [facility]). Pt prognosis is fair<>poor based on PMH, active wound status in LE x 2 LE x 1, mobility tolerance, pain level, complexity and fall risk. Pt was hospitalized recently at [facility] per record report with sepsis/PE and IVC filer placed. Pt was educated to use a RW vs std cane in effort to reduce risk of falls. Pt PMH: COPD (chronic obstructive pulmonary disease) Dyspnea Nocturnal hypoxia Hyperlipidemia History of recurrent deep vein thrombosis (DVT) Chronic back pain Methadone maintenance therapy patient REAGAN (obstructive sleep apnea) Personal history of nicotine dependence Thrombosed external hemorrhoid Morbid obesity Hypertension Chronic pulmonary embolism Current use of anticoagulant therapy (on Eliquis currently) Frequency and Duration: The patient will be seen 1xweek x 3 weeks Short Term Goals: 1. Initiate self care management with encouragement to use RW. 2. Initiate self care for home program. 3. Pt will demonstrate sit<>stand on first attempt. 4. Pt will demonstrate hip abduction to 5/5. Fpc Goals: 1. Pt will resume use of RW to reduce risk of falls. 2. Implement a lumbar stabilization program. 3. Pt will demonstrate I HEP. 4. Pt will express centralization of sx to the height of the knee. Treatment Plan: Modalities to reduce pain, spasms and effusion. Manual therapy to restore motion and function. Therapeutic exercise to improve strength and flexibility. Neuromuscular re-education for posture and balance. Therapeutic activities to return to functional activities of daily living. Electronically signed by: Nadia Tavarez PT, DPT Please sign and return to therapist. Thank you for your referral.
--- NOTE | 2024-10-18 15:16 | MHC.PT.EP ---
[facility] [place] Office [place] Office [place] Office [address] [place] [address] [phone] F: [phone] F: [phone] F: [phone] F: [phone] Physical Therapy Plan of Care Date of Evaluation: 09/25/24 Date of Surgery: Diagnosis: M48.062 Spinal stenosis, lumbar region with neurogenic claudication Spinal stenosis, lumbar region with neurogenic claudication, lumbar stenosis, L4-L5, eval and treat back pain, bilateral pain. signed by Francisco Veelz 08/31/24 Assessment: Pt is a RHD [place] 59 y/o male, [facility] M48.062 Spinal stenosis, lumbar region with neurogenic claudication; Spinal stenosis, lumbar region with neurogenic claudication, lumbar stenosis, L4-L5, eval and treat back pain, bilateral pain. referred by Francisco Velez, 08/31/24 Pt expressing worsening sx over the past four months of back pain>radiating leg L>R pain (in sitting>standing, near constant. 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 Pt exhibits poor tolerance for ambulation, poor tolerance for sitting, has poor tolerance for transfers, has difficulty transitioning into standing, has limited tolerance sleeping reports constant radiating neurogenic claudication L>R. Pt has active wounds x 2 on L LE and 1 R LE (in active care of wound care center at [facility]). Pt prognosis is fair<>poor based on PMH, active wound status in LE x 2 LE x 1, mobility tolerance, pain level, complexity and fall risk. Pt was hospitalized recently at [facility] per record report with sepsis/PE and IVC filer placed. Pt was educated to use a RW vs std cane in effort to reduce risk of falls. Pt PMH: COPD (chronic obstructive pulmonary disease) Dyspnea Nocturnal hypoxia Hyperlipidemia History of recurrent deep vein thrombosis (DVT) Chronic back pain Methadone maintenance therapy patient REAGAN (obstructive sleep apnea) Personal history of nicotine dependence Thrombosed external hemorrhoid Morbid obesity Hypertension Chronic pulmonary embolism Current use of anticoagulant therapy (on Eliquis currently) Frequency and Duration: The patient will be seen 1xweek x 3 weeks Short Term Goals: 1. Initiate self care management with encouragement to use RW. 2. Initiate self care for home program. 3. Pt will demonstrate sit<>stand on first attempt. 4. Pt will demonstrate hip abduction to 5/5. Penitentiary Goals: 1. Pt will resume use of RW to reduce risk of falls. 2. Implement a lumbar stabilization program. 3. Pt will demonstrate I HEP. 4. Pt will express centralization of sx to the height of the knee. Treatment Plan: Modalities to reduce pain, spasms and effusion. Manual therapy to restore motion and function. Therapeutic exercise to improve strength and flexibility. Neuromuscular re-education for posture and balance. Therapeutic activities to return to functional activities of daily living. Electronically signed by: Nadia Tavarez PT, DPT Please sign and return to therapist. Thank you for your referral.
--- NOTE | 2024-10-24 09:40 | MHC.PT.OD ---
[facility] [place] Office [place] Office [place] Office [address] [place] [address] [phone] F: [phone] F: [phone] F: [phone] F: [phone] Physical Therapy Daily Note Diagnosis: M48.062 Spinal stenosis, lumbar region with neurogenic claudication Spinal stenosis, lumbar region with neurogenic claudication, lumbar stenosis, L4-L5, eval and treat back pain, bilateral pain. signed by Francisco Velez 08/31/24 Date of Surgery: Date of Evaluation: 09/25/24 Date of Treatment: 10/22/24 Treatments to Date: Cancellations to Date: No Shows to Date: Authorized Visits: 2 Insurance End Date: Precautions/ Contraindications:history of DVT/PE, history of ulcers L LE x 2, R LE x 1 lack of feeling Subjective: Presents to the office with RW (adjusted way too low for him) reporting he has not had a follow up with [facility]. Pt reports he was unable to connect with medical front desk specialist to get an appt in PT (came down here in person). Therapist reissued our telephone number to patient. Pt is scheduled to see his wound care clinic at [facility] later today. Has two active wounds on his L LE. States he wants to try get to PT. Pain Score and Location: Objective Flowsheet: Tests & Measures Exercises Education for sit<>stand and cues for hand placement/sequencing to stand with use of RW to reduce risk of fall upon standing. Education for log roll technique and position of movement to reduce shear force. Education re: posterior pelvic tilt x 2 set 10R, LBTR with pillow between the knees; SKTC x 20 sec hold x 4R, Pt encouraged to try to change positions often and avoid static positioning. Ice to Lumbar and bilateral hips seated x 10 minutes at end of session. Adjusted height of walker for patient and increased two levels with improved ambulation noted, reduction in sx verbalized with completion Pt educated to use RW for ambulation vs std cane in effort to reduce risk of fall. Pt educated re: goals of therapy, findings of evaluation, and indication for treatment. Elevated height of walker two levels (now three holes exposed). Completed gait training with walker from various surfaces with education for hand placement and sequencing Modalities Assessment: 10/23/24: Use of meat seafood associate Lorenzo [id number] for session. Adjusted height of walker two levels to elevated height of the walker for patient to reduce/improve gait deviation. Pt with positive response for stretches and icing post exercise. Written HEP sheets issued. Pt reports he had to reschedule spine appt due to having conflicting appt with wound care center appt. Pt is likely not a candidate for surgical intervention due to ongoing history of active wounds on his LE. Pt was educated re: goal of implementing a lumbar/hip stretch/program and education for mobility, goal of centralization. Pt is a RHD [place] 59 y/o male, referred to PT from [facility] for treatment M48.062 Spinal stenosis, lumbar region with neurogenic claudication; Spinal stenosis, lumbar region with neurogenic claudication, lumbar stenosis, L4-L5, eval and treat back pain, bilateral pain. referred by Francisco Velez, 08/31/24 Pt expressing worsening sx over the past four months of back pain>radiating leg L>R pain (in sitting>standing, near constant. 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 Pt exhibits poor tolerance for ambulation, poor tolerance for sitting, has poor tolerance for transfers, has difficulty transitioning into standing, has limited tolerance sleeping reports constant radiating neurogenic claudication L>R. Pt has active wounds x 2 on L LE and 1 R LE (in active care of wound care center at [facility]). Pt prognosis is fair<>poor based on PMH, active wound status in LE x 2 LE x 1, mobility tolerance, pain level, complexity and fall risk. Pt was hospitalized recently at [facility] per record report with sepsis/PE and IVC filer placed. Pt was educated to use a RW vs std cane in effort to reduce risk of falls. Pt PMH: COPD (chronic obstructive pulmonary disease) Dyspnea Nocturnal hypoxia Hyperlipidemia History of recurrent deep vein thrombosis (DVT) Chronic back pain Methadone maintenance therapy patient REAGAN (obstructive sleep apnea) Personal history of nicotine dependence Thrombosed external hemorrhoid Morbid obesity Hypertension Chronic pulmonary embolism Current use of anticoagulant therapy (on Eliquis currently) PT Plan: Flexion stabilization program with education for RW, safety with transfers. Short Term Goals: 1. Initiate self care management with encouragement to use RW. 2. Initiate self care for home program. 3. Pt will demonstrate sit<>stand on first attempt. 4. Pt will demonstrate hip abduction to 5/5. Student Assistant Goals: 1. Pt will resume use of RW to reduce risk of falls. 2. Implement a lumbar stabilization program. 3. Pt will demonstrate I HEP. 4. Pt will express centralization of sx to the height of the knee. Electronically signed by: Nadia Tavarez, PT, DPT
== END 2025-01-01 07:13 | disposition home or self-care (01) ==
LOC: HO.PTS 13:00
PROVIDERS: PCP Internal Medicine Geriatric Medicine; Visit Provider Physician Assistant
DX: M48.062 Spinal stenosis, lumbar region with neurogenic claudication (principal)
CPT/HCPCS: 97110; 97116; 97163

== ENCOUNTER 2024-10-26 15:33 | Outpatient (AMB) | payer OTHER, SELFPAY ==
--- NOTE | 2024-10-26 15:34 | HO.SPINEOV ---
Intake Visit Reasons: 6 weeks f/up Intake Note: Mr. Moris Singh is here today for his 6 weeks F/u. Environmental Protection Geologist Required: Yes Environmental Protection Geologist Services: Environmental Protection Geologist Present Environmental Protection Geologist Name: Katlin ARIAN Kumar Allergies No Known Allergies Allergy (Verified 10/26/24 15:38) Assessment & Plan Assessment & Plan (1) Spinal stenosis, lumbar region with neurogenic claudication: Code(s): M48.062 - Spinal stenosis, lumbar region with neurogenic claudication Category: Medical Plan Mr colindres is here in follow-up. Please refer to my last note for the specifics of his problem. He came back today after starting physical therapy, but more less it did not help all that much. Today's visit was done with the help of my surgical garment assembler and well logging captain mud analysis Katlin. The patient describes ongoing issues with his back pain which he has had for 30 years after he fell out of a 3rd or building. He also has the bilateral leg pain with standing and walking. We had previously reviewed his films and he has a grade 1 spondylolisthesis at L4-5 with moderate to severe stenosis at that level. He also has moderate stenosis at L3-4. We had a lengthy discussion about what surgery would entail. Specifically the goals of surgery at L4-5 with a spondylolisthesis would be to treat the back pain and the leg pain. We did admonished him however the success rate for the back pain is 60-70%, and given that he is had the pain now for 30 years too hard to predict if this would completely go away after surgery, in fact we would likely predict it would not, but it may get slightly better. With regard to the leg pain, if he was not interested in treating the back pain and was accepting of that as a lifelong issue that may just be with him, a simple decompression could be done at L4-5. That would address the leg pain but again would not address the back pain. For now, he does not want to consider surgery at all. He is interested in seeing if there any injections that can help him so I will send him back to the pain management center here at [place] who originally sent him to us to be re-evaluated. Total amount of time spent in this visit was 20 minutes in discussion of symptoms, lumbar imaging results and subsequent plan of care Francisco Cooper MD,PhD [facility] Orders: Referrals Pain Management Referral M48.062 - Spinal stenosis, lumbar region with neurogenic claudication Coding Level of Care Code Est Pt Level 3 (89559) Diagnoses Spinal stenosis, lumbar region with neurogenic claudication M48.062
--- OUTSIDE RECORDS SUMMARY | 2024-10-26 15:35 | XMS_ITS | Encounter Summary ---
Author Organization [employer] Address [address] [facility] 7t [place] [address] Care Team Providers Care Turbine Operator Name Role Phone Name, Leland MIMS Primary Care Provider [phone] Reason for Visit * Reason Onset Date Comments FYI 07/26/2024 Encounter Details Date Type Department Care Team ([facility] st Contact Info) Description 07/26/2024 Telephone [facility] [address] [place] [address] Name, MD Leland [address] [place] [address] Social History Tobacco Use Types Packs/Day Years [...] 8:17 AM EST Tc from Sol with [facility] stating that they contact Pt but he refused Both time and they are only allowed to try and offer the Services twice. So they said that they were not going to keep trying. If any questions contact Sol at [phone] documented in this encounter Plan of Treatment Upcoming Encounters Date Type Department Care Team (Late st Contact Info) Description 11/16/2024 9:00 AM EDT Office Visit [facility] [address] [place] [address] Name, MD Leland [address] [place] [address] documented as of this encounter Visit Diagnoses Not on filedocumented in this encounter Additional Health Concerns Assessment Noted Time PHQ-9 Depression Total Score: 0 09/14/19 24 3:10 PM EDT documented as of this encounter Care Teams Turbine Operator Relationship Specialty Start Date End Date Name, MD Leland [address] [place] [address] PCP - General Family Medicine 08/26/15 documented as of this encounter
--- OUTSIDE RECORDS SUMMARY | 2024-10-26 15:35 | XMS_ITS ---
Author Organization [facility] Address [address] [place] [address] Care Team Providers Care Information Systems Operator Name Role Phone Name Leland MIMS Primary Care Provider Unavailabl e Alex Smithmie Unavailable [phone] Nalini Dyer Unavailable [phone] Encounters Encounter Location Date Provider Diagnosis [address] [address] 08/02/2024 Nalini Dyer Plan Of Treatment Next Appt Details Provider Name:Nalini addison, 11/15/2024 02:30:00 PM, [address] [place] [address], [phone], Progress Notes * Jaren MCLAUGHLINsDOB: 3 (59 yo M)Acc No.[id number]:08/02/2024 Progress Note Patient:?Steven MCLAUGHLIN Provider:?Nalini Dyer DPM :1965???Age:59 Y???Sex:Male Jose e:08/02/2024 Address:[address] [place], [place] [address] Pcp:Leland [place] MD Subjective: * Chief Complaints: [...] Dyer DPM Date:? Generated for Luisa john/Alexandrea/Clayton on:?10/26/2024 03:35 PM EDT
--- OUTSIDE RECORDS SUMMARY | 2024-10-26 15:35 | XMS_ITS | Encounter Summary ---
Author Organization [employer] Address [address] [facility] 7t [place] [address] Care Team Providers Care Executive Relations Specialist Name Role Phone Name, Leland MIMS Primary Care Provider [phone] Reason for Visit * Reason Onset Date Comments Call Back Request 08/30/2024 Encounter Details Date Type Department Care Team ([facility] st Contact Info) Description 08/30/2024 Telephone [facility] [address] [place] [address] Name, MD Leland [address] [place] [address] Call Back Request Social History Tobacco Use [...] procedure done , pt was inform from [facility] where procedure was done to contact PCP. Pt will like to know if could take walks with no problem due to procedure. Wallisian speaker documented in this encounter Plan of Treatment Upcoming Encounters Date Type Department Care Team (Late st Contact Info) Description 11/16/2024 9:00 AM EDT Office Visit [facility] [address] [place] [address] Name, MD Leland [address] [place] [address] documented as of this encounter Visit Diagnoses Not on filedocumented in this encounter Additional Health Concerns Assessment Noted Time PHQ-9 Depression Total Score: 0 09/14/19 24 3:10 PM EDT documented as of this encounter Care Teams Executive Relations Specialist Relationship Specialty Start Date End Date Name, MD Leland [address] [place] [address] PCP - General Family Medicine 08/26/15 documented as of this encounter
--- OUTSIDE RECORDS SUMMARY | 2024-10-26 15:35 | XMS_ITS ---
Author Organization [facility] Address [address] [facility] [place] [address] Care Team Providers Care Primary Health Care Nurse Name Role Phone Name Leland MIMS Primary Care Provider Unavailabl e Black, Yaquelin Unavailable [phone] PericaLucioen Unavailable [phone] Allergies No Known Allergies REASON FOR VISIT [...] Piroxicam 20 MG TAKE 1 CAPSULE BY [facility] EVERY DAY WITH FOOD FOR 30 DAYS for 30 Not-Taking Eliquis 5 MG as directed Orally Not-Taking Ciclopirox 0.77 % 1 application Tape Cutting Machine Operator ally Twice a day for [...] 025 Encounters Encounter Location Date Provider Diagnosis [facility] [place] [address] [place] [address] 09/06/2024 Nalini Manisha Pain in right toe(s) [...] Provider Name:Nalinilucrecia addison, 11/15/2024 02:30:00 PM, [address] [facility], [place], [address], Procedure Notes * Category Sub-Category Detail Notes Wart Treatment Procedure Verruca, as desc ribed in exam, were debrided to pin-point bleeding margins with sterile 15 surgical blade, silver nitrate chemocautery applied, recomm. immune-boosting meds such as zinc, recomm. follow up with topical chemosurgical agents, Pt defers any other forms of tx - 22539 Debride Nail 6-10 Nail debridement Due to [...] use of a nail nipper and/or dremel-type convex grinder, to a more viable healthy nail [...] to maintain effectiveness in symptomatic relief - 93357 Progress Notes * Rajeev MCLAUGHLINOB: 3 (59 yo M)Acc No.[id number]:09/06/2024 Progress Note Patient:?Steven MCLAUGHLIN Provider:?Nalini Dyer DPM :1965???Age:59 Y???Sex:Male Jose e:09/06/2024 Address:[address] [place] [address] Pcp:Leland [place] MD Subjective: * Chief Complaints: [...] use of a nail nipper and/or dremel-type convex grinder, to a more viable healthy nail [...] to maintain effectiveness in symptomatic relief - 86547.?Wart Treatment:?Procedure?Verruca, as described in exam, were debrided to pin-point bleeding margins with sterile 15 surgical blade, silver nitrate chemocautery applied, recomm. immune-boosting meds such as zinc, recomm. follow up with topical chemosurgical agents, Pt defers any other forms of tx - 91658.? * Procedure Codes:?62469 DEBRI DE NAIL, 6 OR MORE, Modifiers: XS 31904 Wart Destruction, 1-14, Modifiers: XS * Follow Up:?2 Months * Images: * Sign off status: Completed true * Provider:?Nalini Dyer, DPMarie Date:? Generated for Luisa john/Alexandrea/Clayton on:?10/26/2024 03:35 PM EDT History and Physical Notes * [...]
--- OUTSIDE RECORDS SUMMARY | 2024-10-26 15:35 | XMS_ITS | Encounter Summary ---
Author Organization [employer] Address [address] [facility] 7t [place] [address] Care Team Providers Care Frame Runner Name Role Phone Name, Leland MIMS Primary Care Provider [phone] Encounter Details Date Type Department Care Team ([facility] Contact Info) Description 11/22/[address] [id number] Name, MD Leland [address] [place] [address] Social History Tobacco Use Types Packs/Day Years [...] Upcoming Encounters Date Type Department Care Team ([facility] Contact Info) Description 11/16/2024 9:00 AM EDT Office Visit [facility] [address] [place] [address] Name, MD Leland [address] [place] [address] documented as of this encounter Visit Diagnoses Not on filedocumented in this encounter Additional Health Concerns Assessment Noted Time PHQ-9 Depression Total Score: 0 09/07/19 23 1:16 PM EDT documented as of this encounter Care Teams Frame Runner Relationship Specialty Start Date End Date Name, MD Leland [address] [place] [address] PCP - General Family Medicine 08/26/15 documented as of this encounter
--- OUTSIDE RECORDS SUMMARY | 2024-10-26 15:35 | XMS_ITS | Encounter Summary ---
Author Organization [employer] Address [address] [facility] 7t [place] [address] Care Team Providers Care Application Integration Specialist Name Role Phone Name, Leland MIMS Primary Care Provider [phone] Reason for Visit * Reason Comments Med Refill Encounter Details Date Type Department Care Team (Late Contact Info) Description 02/21/2023 Refill [facility] [address] [place] [address] [phone] NameLeland MD [address] [place] [address] [phone] Insomnia, unspecified type Social History Tobacco Use [...] Upcoming Encounters Date Type Department Care Team ([facility] Contact Info) Description 11/16/2024 9:00 AM EDT Office Visit [facility] [address] [place] [address] [phone] Name, MD Leland [address] [place] [address] [phone] documented as of this encounter Visit Diagnoses Diagnosis Insomnia, unspecified type documented in this encounter Additional Health Concerns Assessment Noted Time PHQ-9 Depression Total Score: 0 09/07/19 23 1:16 PM EDT documented as of this encounter Care Teams Application Integration Specialist Relationship Specialty Start Date End Date Name, MD Leland [address] [place] [address] PCP - General Family Medicine 08/26/15 documented as of this encounter
--- OUTSIDE RECORDS SUMMARY | 2024-10-26 15:35 | XMS_ITS | Encounter Summary ---
Author Organization [employer] Address [address] [facility] [address] 7t [place] [address] Care Team Providers Care Snout Puller Name Role Phone Name, Leland MIMS Primary Care Provider [phone] Reason for Visit * Reason Comments Med Refill Encounter Details Date Type Department Care Team ([facility] st Contact Info) Description 09/23/2023 Refill [facility] [address] [place] [address] Ila Lora MD [address] [place] [address] Social History Tobacco Use Types Packs/Day Years [...] Description 11/16/2024 9:00 AM EDT Office Visit [facility] [address] [place] [address] Name, MD Leland [address] [place] [address] documented as of this encounter Visit Diagnoses Not on filedocumented in this encounter Additional Health Concerns Assessment Noted Time PHQ-9 Depression Total Score: 0 09/14/19 24 3:10 PM EDT documented as of this encounter Care Teams Snout Puller Relationship Specialty Start Date End Date NameLeland MD [address] [place] [address] PCP - General Family Medicine 08/26/15 documented as of this encounter
--- OUTSIDE RECORDS SUMMARY | 2024-10-26 15:35 | XMS_ITS | Encounter Summary ---
Author Organization [employer] Address [address] [facility] 7t [place] [address] Care Team Providers Care Help Desk Internship Name Role Phone Name, Leland MIMS Primary Care Provider [phone] Reason for Visit * Reason Onset Date Comments Verbal Order 07/24/2024 Encounter Details Date Type Department Care Team ([facility] st Contact Info) Description 07/24/[address] [facility] [address] [place] [address] Name, MD Leland [address] [place] [address] Verbal Order Social History Tobacco Use Types [...] PCP and also pt was seen in [facility] walk in clinic on 07/14/24. Katey verbalized understanding, no further questions. * Telephone Encounter - João Bhatt - 07/24/2024 4:34 PM EST Tc from Emelia with [facility] requesting verbal orders. Please contact Emelia at [phone] Opt 2. documented in this encounter Plan of Treatment Upcoming Encounters Date Type Department Care Team (Late st Contact Info) Description 11/16/2024 9:00 AM EDT Office Visit [facility] [address] [place] [phone] Name, MD Leland [address] [place] [address] documented as of this encounter Visit Diagnoses Not on filedocumented in this encounter Additional Health Concerns Assessment Noted Time PHQ-9 Depression Total Score: 0 09/14/19 24 3:10 PM EDT documented as of this encounter Care Teams Help Desk Internship Relationship Specialty Start Date End Date Name, MD Leland [address] [place] [address] PCP - General Family Medicine 08/26/15 documented as of this encounter
--- OUTSIDE RECORDS SUMMARY | 2024-10-26 15:35 | XMS_ITS | Patient Health Record ---
Author Organization [facility] Address [address] [facility] [place] [address] Care Team Providers Care Underground Foreman Name Role Phone Name Leland MIMS Primary Care Provider Unavailyves e Luis Yaquelin Unavailable [phone] Manisha Nalini Unavailable [phone] Allergies No Known Allergies Reason For Referral No Information Medications Medication SIG (Take, Route, Frequency, Duration) Notes Start Date End Date Status Naproxen 500 MG 1 tablet Orally WITH FOOD Twice a day for 14 days 01/28/2023 Not-Taki ng Ciclopirox 0.77 % 1 application Retail Field Supervisor ally Twice a day for 30 days [...] Piroxicam 20 MG TAKE 1 CAPSULE BY [facility] EVERY DAY WITH FOOD FOR [...] Problem Status W/U Status Risk Notes Problem 32028730 Plantar wart (B07.0) Active confirmed Problem Acquired hammer toe of left foot (1276803777786493) Other hammer toe(s) (acquired), left foot (M20.42) Active confirmed Problem 957615261 Hammer toe of right foot (M20.41) Active confirmed Problem 841972834 Neuropathy (G62.9) Active confirmed Problem 607721023930163 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 (M19.071) Active confirmed Problem Acquired deformity of left foot (86368843957345819) PlantarFlexion of metatarsal of left foot (M21.6X2) Active confirmed Problem 2733741291759470 Gouty arthritis of left foot (M10.9) Active confirmed Vital Signs Blood pressure diastolic 80 mm Hg 09/06/2024 Height 6ft in 09/06/2024 Blood pressure systolic 130 mm Hg 09/06/2024 Weight 289 lbs 09/06/2024 BMI 39.19 kg/m2 09/06/2024 Encounters Encounter Location Date Provider Diagnosis [address] [address] 12/08/2023 Nalini Perica Tinea unguium B35.1 ; Pain in right toe(s) M79.674 and Pain in left toe(s) M79.675 [facility] [address] 05/21/2024 Nalini Perica Tinea unguium B35.1 ; Metatarsalgia, left foot M77.42 ; Pain in right toe(s) M79.674 ; Pain in left toe(s) M79.675 ; Xerosis of skin L85.3 ; PlantarFlexion of metatarsal of left foot M21.6X2 ; Other hammer toe(s) (acquired), left foot M20.42 ; Hammer toe of right foot M20.41 and Bursitis of intermetatarsal bursa of left foot M77.52 [facility] [address] 09/06/2024 Nalini Perica Pain in right toe(s) M79.674 ; Onychomycosis B35.1 ; Pain in left toe(s) M79.675 ; Plantar wart B07.0 and Left foot pain M79.672 [facility] [address] [place] [address] 02/06/2024 Yaquelin Smith [facility] [address] 03/05/2024 Yaquelin Smith Assessments Encounter Date Diagnosis [...] X ray : Foot, right 3V 01/27/2023 [id number] NAIL, 6 OR MORE 11/03/2021 41739-[id number] NAIL, 6 OR MORE 01/19/2022 91323, J0702- INJECT TENDON ORIGIN/INSER T 01/27/2023 15371, B8169-LBLRI/INJECT, JOINT/BURSA 0 07/02/2022 X ray : Ankle, right 3V 01/27/2023 Next Appt Details Provider Name:Nalini addison, 11/15/2024 02:30:00 PM, [address] [place], [address], Insurance Providers Payer Name Payer Address Payer Phone Subscriber Number Group Number Insured Name Patient Relationship to Insured Coverage Start Date Coverage End Date [facility] [employer] Claims [address] [place] [phone] [id number] Steven Subramanian Self - patient is the insured Medical (General) History Medical History History ICD Code Arthritis Depression Psoriasis/eczema Surgical History Surgery Date(Month/Year) ear tubes Hospitalization History Reason Date(Month/Year) blood clot 09/04 [facility] leg issue, cyst [facility]- blood clot 07/2021
--- OUTSIDE RECORDS SUMMARY | 2024-10-26 15:35 | XMS_ITS | Encounter Summary ---
Author Organization [employer] Address [address] [facility] 7t [place] [address] Care Team Providers Care Cashiers Supervisor Name Role Phone Name, Leland MIMS Primary Care Provider [phone] Reason for Visit * Reason Onset Date Comments Hospital Follow-up 08/17/2024 Encounter Details Date Type Department Care Team ([facility] st Contact Info) Description 08/17/2024 Telephone [facility] [address] [place] [address] Name, MD Leland [address] [place], [place] [phone] Hospital Follow-up Social History Tobacco Use Types [...] from pt requesting a HDF appt. Hospital: [facility] Date of admission: 08/12/24 Discharge date: 08/16/24 Diagnosed: blood clot in left leg documented in this encounter Plan of Treatment Upcoming Encounters Date Type Department Care Team (Late st Contact Info) Description 11/16/2024 9:00 AM EDT Office Visit [facility] [address] [place] [address] Name, MD Leland [address] [place] [address] documented as of this encounter Visit Diagnoses Not on filedocumented in this encounter Additional Health Concerns Assessment Noted Time PHQ-9 Depression Total Score: 0 09/14/19 24 3:10 PM EDT documented as of this encounter Care Teams Cashiers Supervisor Relationship Specialty Start Date End Date NameLeland MD [address] [place] [address] PCP - General Family Medicine 08/26/15 documented as of this encounter
--- OUTSIDE RECORDS SUMMARY | 2024-10-26 15:35 | XMS_ITS | Encounter Summary ---
Author Organization [employer] Address [address] [facility] 7t [place] [address] Care Team Providers Care Glass Block Installer Name Role Phone Name, Leland MISM Primary Care Provider [phone] Reason for Visit * Reason Onset Date Comments Med Refill 07/28/2023 Encounter Details Date Type Department Care Team ([facility] st Contact Info) Description 07/28/2023 Telephone [facility] [address] [place] [address] Name, MD Leland [address] [place], [place] [phone] Med Refill Social History Tobacco Use Types [...] Vogt LPN - 07/28/2023 11:52 AM EST METAL CASKET MAKER checked 07/28/23 last filled on 06/17/23 refill 2/3 patient should have 1 refill left. * Telephone Encounter - Hailee Louie - 07/28/2023 11:08 AM EST TC from pt requesting medication refill. Medications needing refill : gabapentin (Neurontin) 800 MG tablet To be sent to: [facility] [place] - [address] [place] [address] documented in this encounter Plan of Treatment Upcoming Encounters Date Type Department Care Team (Late st Contact Info) Description 11/16/2024 9:00 AM EDT Office Visit [facility] [address] [place] [address] Name, MD Leland [address] [place] [address] documented as of this encounter Visit Diagnoses Not on filedocumented in this encounter Additional Health Concerns Assessment Noted Time PHQ-9 Depression Total Score: 0 09/07/19 23 1:16 PM EDT documented as of this encounter Care Teams Glass Block Installer Relationship Specialty Start Date End Date Name, MD Leland [address] [place] [address] PCP - General Family Medicine 08/26/15 documented as of this encounter
--- OUTSIDE RECORDS SUMMARY | 2024-10-26 15:35 | XMS_ITS | Encounter Summary ---
Author Organization [employer] Address [address] 7[address] [place] [address] Care Team Providers Care Cloth Worker Name Role Phone Name, Leland MIMS Primary Care Provider [phone] Reason for Visit * Reason Comments Med Refill Encounter Details Date Type Department Care Team ([facility] st Contact Info) Description 07/25/2024 Refill [facility] [address] [place], [place] [phone] Stacey Wade MD [address] [place] [address] Lumbago with sciatica, right side Social History [...] Description 11/16/2024 9:00 AM EDT Office Visit [facility] [address] [place] [address] Name, MD Leland [address] [place] [address] documented as of this encounter Visit Diagnoses Diagnosis Lumbago with sciatica, right side documented in this encounter Additional Health Concerns Assessment Noted Time PHQ-9 Depression Total Score: 0 09/14/19 24 3:10 PM EDT documented as of this encounter Care Teams Cloth Worker Relationship Specialty Start Date End Date Name, MD Leland [address] [place] [address] PCP - General Family Medicine 08/26/15 documented as of this encounter
--- OUTSIDE RECORDS SUMMARY | 2024-10-26 15:35 | XMS_ITS | Encounter Summary ---
Author Organization [employer] Address [address] [facility] 7t [place] [address] Care Team Providers Care Test Puller Name Role Phone Name, Leland MIMS Primary Care Provider [phone] Reason for Visit * Reason Onset Date Comments Nurse Triage 08/06/2024 Encounter Details Date Type Department Care Team ([facility] st Contact Info) Description 08/06/2024 Telephone [facility] [address] [place] [address] Name, MD Leland [address] [place] [address] Nurse Triage Social History Tobacco Use Types [...] 08/06/2024 3:03 PM EST Triage call with [facility] [place] [id number] Radha Pt is called several times and [...] Description 11/16/2024 9:00 AM EDT Office Visit [facility] [address] [place] [address] Name, MD Leland [address] [place] [address] documented as of this encounter Visit Diagnoses Diagnosis Osteoarthritis of right ankle and foot Swelling of lower limb documented in this encounter Additional Health Concerns Assessment Noted Time PHQ-9 Depression Total Score: 0 09/14/19 24 3:10 PM EDT documented as of this encounter Care Teams Test Puller Relationship Specialty Start Date End Date Name, MD Leland [address] [place] [address] PCP - General Family Medicine 08/26/15 documented as of this encounter
--- OUTSIDE RECORDS SUMMARY | 2024-10-26 15:35 | XMS_ITS | Clinical Summary ---
Author Organization [address] [facility] Address [address] [place] [address] Phone Care Team Providers Care Corporate Aircraft Mechanic Name Role Phone Name, Leland MIMS Primary Care Provider [phone] Allergies No known active allergies Medications DICLOFENAC [...] of 2 - Risk 2-dose series) 1982 COVID-19 Vaccine ( season) 2024 06/18/2021, 10/30/2020, 10/02/2020 Colorectal Cancer Screening: Colonoscopy 03/16/2024 Hypertension/CHF/CAD Annual BMP Blood Test 03/16/2024 03/21/2015 Medicare Annual Wellness Visit 03/16/2024 Social Influencers of Health Screening 03/16/2024 Depression Screening 09/13/2024 09/14/2023 DTaP,Tdap,and Td Vaccines (3 - Td or Tdap) 03/20/2028 03/20/2018, 07/09/1998 Cholesterol Screening (Lipid Panel) 10/13/2028 10/14/2023 RSV Immunization Adult Patients (1 - 1-dose 75+ series) 2038 Zoster Vaccines Completed 08/26/2020, 06/25/2020 Pneumococcal Vaccine: [...] ID:[id number] Group ID:[id number] Type:Not on file Address: [place] [address] [place] [address] Care Teams Corporate Aircraft Mechanic Relationship Specialty Start Date End Date Name, MD Leland [address] [place], [place] PCP - General 01/06/15
--- OUTSIDE RECORDS SUMMARY | 2024-10-26 15:35 | XMS_ITS | Encounter Summary ---
Author Organization [employer] Address [address] [facility] [address] 7t [place] [address] Care Team Providers Care Fashion Intern Name Role Phone Name, Leland MIMS Primary Care Provider [phone] Encounter Details Date Type Department Care Team (Late st Contact Info) Description 03/24/2023 Telephone [facility] [address] [place], [place] [phone] Name, MD Leland [address] [place], [place] [phone] Social History Tobacco Use Types Packs/Day Years [...] pt is currently admitted to [facility] and was found with blood clots to both legs. Any questions, contact pt at [phone] documented in this encounter Plan of Treatment Upcoming Encounters Date Type Department Care Team (Late st Contact Info) Description 11/16/2024 9:00 AM EDT Office Visit [facility] [address] [place] [address] Name, MD Leland [address] [place] [address] documented as of this encounter Visit Diagnoses Not on filedocumented in this encounter Additional Health Concerns Assessment Noted Time PHQ-9 Depression Total Score: 0 09/07/19 23 1:16 PM EDT documented as of this encounter Care Teams Fashion Intern Relationship Specialty Start Date End Date Name, MD Leland [address] [place] [address] PCP - General Family Medicine 08/26/15 documented as of this encounter
--- OUTSIDE RECORDS SUMMARY | 2024-10-26 15:35 | XMS_ITS | Encounter Summary ---
Author Organization [employer] Address [address] [facility] 7t [place] [address] Care Team Providers Care Transitional Nurse Name Role Phone Name, Leland MIMS Primary Care Provider [phone] Reason for Visit * Reason Comments Med Refill Encounter Details Date Type Department Care Team ([facility] st Contact Info) Description 06/20/2023 Refill [facility] [address] [place] [address] Name, MD Leland [address] [place], [place] [phone] Insomnia, unspecified type Social History Tobacco Use [...] EDT Office Visit [facility] [address] [place] [address] Name, MD Leland [address] [place] [address] documented as of this encounter Visit Diagnoses Diagnosis Insomnia, unspecified type documented in this encounter Additional Health Concerns Assessment Noted Time PHQ-9 Depression Total Score: 0 09/07/19 23 1:16 PM EDT documented as of this encounter Care Teams Transitional Nurse Relationship Specialty Start Date End Date Name, MD Leland [address] [place] [address] PCP - General Family Medicine 08/26/15 documented as of this encounter
--- OUTSIDE RECORDS SUMMARY | 2024-10-26 15:35 | XMS_ITS | Encounter Summary ---
Author Organization [employer] Address [address] [facility] 7t [place] [address] Care Team Providers Care Kieselguhr Regenerator Operator Name Role Phone Name, Leland MIMS Primary Care Provider [phone] Reason for Visit * Reason Onset Date Comments Med Refill 01/02/2024 Encounter Details Date Type Department Care Team ([facility] st Contact Info) Description 01/02/2024 Telephone [facility] [address] [place] [address] Name, MD Leland [address] [place], [place] [phone] Med Refill Social History Tobacco Use Types [...] 10 MG tablet To be sent to: [facility] [place], [place] - [address] [place] [address] documented in this encounter Plan of Treatment Upcoming Encounters Date Type Department Care Team (Late st Contact Info) Description 11/16/2024 9:00 AM EDT Office Visit [facility] [address] [place] [address] Name, MD Leland [address] [place] [address] documented as of this encounter Visit Diagnoses Not on filedocumented in this encounter Additional Health Concerns Assessment Noted Time PHQ-9 Depression Total Score: 0 09/14/19 24 3:10 PM EDT documented as of this encounter Care Teams Kieselguhr Regenerator Operator Relationship Specialty Start Date End Date Name, MD Leland [address] [place] [address] PCP - General Family Medicine 08/26/15 documented as of this encounter
--- OUTSIDE RECORDS SUMMARY | 2024-10-26 15:36 | XMS_ITS | Encounter Summary ---
Author Organization [employer] Address [address] [facility] 7t [place] [address] Care Team Providers Care Inspector Materials And Processes Name Role Phone Name, Leland MIMS Primary Care Provider [phone] Reason for Visit * Reason Onset Date Comments Referral 07/20/2022 Encounter Details Date Type Department Care Team ([facility] st Contact Info) Description 07/20/2022 Telephone [facility] [address] [place], [place] [phone] Name, MD Leland [address] [place] [address] Referral Social History Tobacco Use Types Packs/Day [...] - 07/20/2022 10:13 AM EST Marva calling [facility] for new or existing referrals for [facility], [address], [place] [address], Phone #: , Reason for referral is Chronic Severe pain left foot. Marva advised pt has an X-ray done and patient does have the symptom of Chronic pain. Advised Marva with [facility] will forward to team nurse for new referral and yard specialist for existing referral. Please call Marva at [phone] documented in this encounter Plan of Treatment Upcoming Encounters Date Type Department Care Team (Late st Contact Info) Description 11/16/2024 9:00 AM EDT Office Visit [facility] [address] [place] [address] Name, MD Leland [address] [place] [address] documented as of this encounter Visit Diagnoses Not on filedocumented in this encounter Care Teams Inspector Materials And Processes Relationship Specialty Start Date End Date Name, MD Leland [address] [place] [address] PCP - General Family Medicine 08/26/15 documented as of this encounter
--- OUTSIDE RECORDS SUMMARY | 2024-10-26 15:36 | XMS_ITS | Data Portability ---
Author Organization [place] [facility], Allergy Address [address] [place] [address] Care Team Providers Care Broth Mixer Name Role Phone NAME, MARIO Primary Care Provider [phone] Assessment Encounter Date Assessment Date Assessment LastModified [...] consider CT temporal bone given chronic symptoms. [id number] Not available 11/24/2023 17:08:14 01/24/2024 01/24/2024 Patient [...] Risks and benefits of surgery discussed using reel tender. Will begin the scheduling process and see [...] has resolved and he has a persistent xtwnixll-gv-onpykc neurosensory loss. Recommend updated technology; [facility] provider list provided with medical clearance [...] oil 0.01 % ear drops 2024 025 [facility] #[id number], [address] [place], [address], 5 15:56:32 Patient TargetsNo targets recorded. Patient [...] Details Recorded Time History of tobacco use 25616456398 03 Active 2017 History of tobacco use; Note: Date Diagnose d: 11/17/2017 2:10 PM (V15.82) Not Available [facility] 4 02:48:23 Otorrhea of right ear 87720179231 00799 Active 2015 Otorrhea , right ear; Note: Date Diagnose d: 6 10:53 AM (H92.11) Not Available [facility] 4 02:48:27 Tinnitus of left ear 70166311363 06 Active 2015 Tinnitus , left ear; Note: Date Diagnose d: 6 1:49 PM (H93.12) Not Available [facility] 4 02:48:21 Pain of temporom andibula r joint 90972821 Active 2017 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, unspecif ied side; Note: Changed from M26.62 to M26.629 (01/08/20 23 2:39 PM) , Date Diagnose d: 11/17/2017 2:11 PM (M26.62) Not Available [facility] 4 02:48:26 Otalgia of left ear 5827988103 Active 2017 Otalgia, left ear; Note: Date Diagnose d: 11/17/2017 2:11 PM (H92.02) Otalgi a, left ear; Note: Date Diagnose d: 6 1:23 PM (H92.02) ; Start Date : 06/27/19 16 Not Available [facility] 4 02:48:25 Adhesive middle ear disease 4712169 Active 2013 Adhesive middle ear disease, unspecif ied as to involvem ent; Location : right CM S Risk: minimal risk CMS Treatmen t: self-cabrera ited or minor problem Conditio n: worse No te: Date Diagnose d: 4 4:36 PM (385.10) , Patient has a mild right anterior retracti on and left myringo- incudope xy Not Available [facility] 4 02:48:23 Sensorin eural hearing loss 54184454 Active 2015 Sensorin eural hearing loss, unilater al, left ear, with unrestri cted hearing on the contrala teral side; Note: Date Diagnose d: 6 3:27 PM (H90.42) Not Available [facility] 4 02:48:28 Disorder of nasal sinus 8499394 Active 2020 Other specifie d disorder s of nose and nasal sinuses; Note: Date Diagnose d: 06/08/20 21 10:31 AM (J34.89) Not Available [facility] 4 02:48:20 Disorder of the nose 22131985 Active 2020 Other specifie d disorder s of nose and nasal sinuses; Note: Date Diagnose d: 06/08/20 21 10:31 AM (J34.89) Not Available [facility] 4 02:48:21 Psoriasi s 9390792 Active 2019 Other psoriasi s; Note: Date Diagnose d: 0 11:50 AM (L40.8) Not Available [facility] 4 02:48:27 Sensorin eural hearing loss in left ear 24097032377 109 Active 2015 Sensorin eural hearing loss, unilater al, left ear, with restrict ed hearing on the contrala teral side; Note: Date Diagnose d: 06/01/20 16 2:10 PM (H90.A22 ) Not Available [facility] 4 02:48:29 Sensorin eural hearing loss of bilatera l ears 983117990 Active 2019 [facility] Bilatera lly; Note: Date Diagnose d: 4 4:08 PM (389.18) , Patient with bilatera l sensorin eural hearing loss affectin g all frequenc ie. Recommen d amplific ation, patient provided with a copy of todays audiogra m, medical clearanc e for hearing aids, and a list of [facility] hearing aid dispense rs. Follow up as needed ; Start Date : 03/12/20 14 Senso rineural hearing loss, bilatera l; Note: Date Diagnose d: 04/28/20 20 11:59 AM (H90.3) Sensor ineural hearing loss, bilatera l; Note: Date Diagnose d: 6 1:49 PM (H90.3) ; Start Date : 06/27/19 16 Not Available [facility] 4 02:48:24 Chronic serous otitis media of left ear 346867170 Active 2015 Chronic serous otitis media, left ear; Note: Date Diagnose d: 6 2:21 PM (H65.22) Not Available [facility] 4 02:48:28 Chronic serous otitis media 53488504 Active 2013 Chronic serous otitis media; Location [...] given severity of hearing loss Not Available [facility] 4 02:48:22 Mixed conducti ve and sensorin eural hearing loss of right ear 34948049703 105 Active 2015 Mixed conducti ve and [...] 2:10 PM (H90.A31 ) Not Available [facility] 4 01:08:24 Tobacco user 395767012 Completed 201701/24/2024 Tobacco use; Note: Date Diagnose d: 8 11:00 AM (Z72.0) JABARI DELVALLE MD [address] [place] [address], [facility] [place], [address] , [facility] 4 16:10:42 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 Other specifie d superfic ial mycoses; Note: Date Diagnose d: 7 1:41 PM (B36.8) Not Available [facility] 4 02:48:28 Dysfunct ion of eustachi an tube 55732780 Active 2013 Eustachi an tube dysfunct ion; Note: Date Diagnose d: 4 4:08 PM (381.81) Not Available [facility] 4 02:48:25 Otalgia 89866749 Active 2014 Otalgia; Note: Date Diagnose d: 5 2:02 PM (388.70) Not Available [facility] 4 02:48:29 Referred otalgia 60679791 Active 2019 Otalgia secondar y to TMJ; Note: Date Diagnose d: 0 2:21 PM (388.72) Not Available [facility] 4 02:48:30 Impacted cerumen 91734300 Active 2014 Impacted cerumen; [facility] Treatmen t: lupillos hed problem (to examiner ): stable or improved Note: Date Diagnose d: 5 1:42 PM (380.4) Not Available [facility] 4 02:48:23 Itching of skin 999306259 Active 2019 Other pruritus ; Note: Date Diagnose d: 0 2:25 PM (L29.8) Not Available [facility] 4 02:48:21 Impacted cerumen in right ear 58260672264 44918 Active 2016 Impacted cerumen, right ear; Note: Date Diagnose d: 7 4:26 PM (H61.21) Not Available [facility] 4 02:48:26 Impacted cerumen of bilatera l ears 06202943920 98412 Active 2016 Impacted cerumen, bilatera l; Note: Date Diagnose d: 7 1:58 PM (H61.23) Not Available [facility] 4 02:48:29 Chronic serous otitis media of right ear 949394904 Active 2015 Chronic serous otitis media, right ear; Note: Date Diagnose d: 6 3:57 PM (H65.21) Not Available [facility] 4 02:48:25 Bilatera l disorder of Eustachi an tubes 34456714121 79341 Active 2015 Other specifie d disorder s of Eustachi an tube, bilatera l; Note: Date Diagnose d: 6 2:21 PM (H69.83) Not Available [facility] 4 02:48:27 Otalgia of right ear 7423422860 Active 2017 Otalgia, right ear; Note: Date Diagnose d: 8 10:49 AM (H92.01) Otalgi a, right ear; Note: Date Diagnose d: 5 2:03 PM (H92.01) [mapped from ICD9 code: 388.70] ; Start Date : 01/03/20 15 Not Available [facility] 4 02:48:22 Chronic serous otitis media 17246002 Active 2023 JABARI DELVALLE MD [address] [place] [address],[address], [address] , [place] - [facility] 4 16:07:04 Problem Notes None recorded. Procedures Surgical History Date Name Laterality Status Provider Name and Address Organization Details Recorded Time 06/18/19 25 Air & Speech Audio with Tymps - 25543, 10107 & 55462 completed BALA WASSERMAN [address] [place] [address],[place] [address], [place], [address], [facility] [place] 06/18/2024 15:27:33 05/18/20 24 MYRINGOTOMY, BILATERAL, WITH TUBE INSERTION (SURG) completed Freedom Lozano [place] - [facility] 05/21/2024 11:01:39 01/24/20 24 Cerumen removal with microscope bilateral completed JABARI DELVALLE MD [address] [place] [address],[address], [address], [place] - [facility] 01/24/2024 16:10:57 11/24/19 24 Cerumen removal without microscope bilat completed ANTHONY APONTE PA-C [address] [place] [address], [place], [address], [place] [facility] 11/24/2023 17:07:33 11/24/19 24 Tympanometry - 95213 completed Roxy Rico [place] - [facility] 11/24/2023 16:43:26 11/24/19 24 Air & Bone Audio - 02816 completed Roxy Rico [place] [facility] 11/24/2023 16:45:17 Myringotomy Tube Placement completed Amber Kebede [place] [facility] 01/24/2024 15:34:07 Imaging Results Imaging Date Name Status LastModified by [facility] Details LastModified Time 11/28/2023 audiogram completed BARCODE [...] mg tablet 2020 active Medicati on ID: 590720 B rand Name: atorkassandrat atmonique Joya d Method: E-Prescr ibed Sub s Allowed: subs OK Medic ationGen ericName : atorvast atin Not Available Not Available Not Available bupropion HCl SR 150 mg tablet,12 hr sustained -release 2020 active Medicati on ID: 112219 B rand Name: bupropio n HCl Send [...] topical cream 06/08 completed Medicati on ID: 996520 B rand Name: Lotrison e Send Method: E-Prescr ibed Sub s Allowed: subs OK Speci al Instruct ion: apply to external ear tid X 2 weeks Me dication GenericN emily: Lotrison e Medica tion ID: [id number] B rand Name: Lotrison e Send Method: E-Prescr ibed Sub s Allowed: subs OK Speci al Instruct ion: apply to external ear tid X 2 weeks Me dication GenericN emily: Lotrison e Not Available Not Available Not Available clotrimaz ole-betam ethasone 1 %-0.05 % lotion 06/08 completed Medicati on ID: 246390 P [place] daniels By Name: TONNY Tejeda [...] topical cream 01/23 completed Medicati on ID: 912361 B rand Name: betameth asone, augmente d Send Method: E-Prescr ibed Sub s Allowed: subs OK Medic ationGen ericName : betameth asone, augmente d Not Available Not Available Not Available Ciloxan 0.3 % eye drops 01/23 completed Medicati on ID: 716644 D uration Value: 3 Prescri bed By [...] layed release 2020 active Medicati on ID: 384535 B rand Name: aspirin Send Method: E-Prescr [...] applicato r 2020 active Medicati on ID: 816683 B rand Name: hydrocor tisone S end [...] mg capsule 2020 active Medicati on ID: 837644 B rand Name: tamsulos in Send Method: [...] right ear 01/23 completed Medicati on ID: 97780 Pr escribed By Name: TONNY Crisostomo nd Name: antipyri ne-benzo rohan Se nd Method: E-Prescr ibed Sub s Allowed: subs OK Robby al Instruct ion: as needed for discomfo rt Medic ationGen ericName : antipyri ne-benzo rohan Not Available Not Available Not Available hydrocort isone 1 % topical cream 2020 active Medicati on ID: 754295 B rand Name: hydrocor tisone S end [...] mg tablet 2020 active Medicati on ID: 115569 B rand Name: lisinopr il Send Method: [...] mg tablet 2020 active Medicati on ID: 751239 B rand Name: loratadi ne Send Method: [...] topical cream 06/08 completed Medicati on ID: [id number] Dariana daniels By Name: TONNY Tejeda nd Name: angelina ne Send Method: E-Prescr ibed Sub s Allowed: subs OK Speci al Instruct ion: Apply to external ear BID X 1 week as needed M hodna Merritt Name: mometaso ne Not Available Not [...] 24 hr 2020 active Medicati on ID: 181021 B rand Name: alfuzosi n Send Method: [...] mg capsule 2020 active Medicati on ID: 650251 B rand Name: pregabal in Send Method: E-Prescr ibed Sub s Allowed: subs OK Medic ationGen ericName : pregabal in Not Available Not Available Not Available antipyrin e-benzoca ine 3 drop into right ear as directed 06/08 completed Medicati on ID: 77078 Br and Name: antipyri ne-benzo rohan Se [...] mg capsule 2020 active Medicati on ID: 595122 B rand Name: Fish Oil Send Method: E-Prescr ibed Sub s Allowed: subs OK Medic ationGen ericName : Fish Oil Not Available Not Available Not Available hydrochlo rothiazid e 12.5 mg tablet TAKE 1 TABLET BY MOUTH EVERY DAY IN THE MORNING active Not Available Not Available No t Available Athlete's Foot (clotrima zole) 1 % topical cream 01/23 completed Medicati on ID: [id number] D uration Value: 14 Prescri bed By [...] mg tablet 2020 active Medicati on ID: 467788 B rand Name: Eliquis Send Method: E-Prescr [...] Updated DateTime 08/24/2024 182.88 cm 38.7 kg/m2 895166.83 g Kayla Chacko [place] [facility] 08/24/2024 14:36:20 Date Recorded Body height Body mass index (BMI) Body weight Provider Name and Address Organization Details Last Updated DateTime 01/24/2024 182.88 cm 38 kg/m2 393334.86 g Amber Kebede [place] [facility] 01/24/2024 15:28:13 Date Recorded Body height Body mass index (BMI) Body weight Provider Name and Address Organization Details Last Updated DateTime 11/24/2023 182.88 cm 38 kg/m2 610802.86 g Barbie Ramos [place] [facility] 11/24/2023 16:09:06 Social History Question Answer Notes LastModified by Organizat ion Details LastModified Time Tobacco Smoking Status Former Smoker JABARI DELVALLE MD [address] [place] [address], [address], [facility] - [facility] 01/24/2024 16:04:47 When Did You Quit Smoking? 1-5yearssinc elastcigaret te [id number] Information not available 01/24/2024 Sex: Unknown Functional Status None recorded. Mental Status None recorded. Family History Nothing Reported. Medical History Condition Response Anxiety Y Depression Y Sleep Disorder Y Past Encounters Encounter ID Performer Location Encounter Start Date Encounter Closed Date Diagnosis/Indication Diagnosis SNOMED-CT Code Diagnosis ICD10 Code Diagnosis Note [id number] ANTHONY APONTE PA-C [facility] [address] [address] 11/24/2023 15:43:29 11/24/2023 17:00:35 Bilateral disorder of Eustachian tubes 1460726421 771478 H69.83 Impacted c erumen of bilateral ears 8382955760 733396 H61.23 Otalgia of right ear 160 9335036 H92.01 Mixed cond uctive and sensorineural hearing loss of right ear 7948313858 9105 H90.A31 Profound mixed hearing loss and a Type C tympanogra m noted in the right ear. Severe to profound sensorineu ral hearing loss and a Type B tympanogra m with large volume noted in the left ear. Sensorineu ral hearing loss in left ear 6221856450 9109 H90.A22 Acute sero us otitis media of right ear 8000995901 694083 H65.01 [id number] JABARI DELVALLE MD [facility] [address] [address] 01/24/2024 15:09:42 01/24/2024 16:10:53 Bilateral disorder of Eustachian tubes 8798045619 251394 H69.83 Chronic se emmie otitis media 21196587 H65.21 Sensorineu ral hearing loss of bilateral ears 775855809 H90.3 Impacted c erumen of bilateral ears 5069271243 159159 H61.23 [id number] ROLANDO FREY PA-C [facility] [address] [address] 06/18/2024 15:02:45 06/18/2024 16:05:21 Bilateral disorder of Eustachian tubes 1850982269 122426 H69.93 Right Ear:Modera te to severe SNHL with excellent speech discrimina tion.Paten t tube.Left Ear:Modera te to severe SNHL with excellent speech discrimina tion.Paten t tube. Psoriasis 5068721 L40.9 [id number] JAH WILKERSON PA-C [facility] [address] [address] 08/24/2024 14:29:50 08/24/2024 14:55:40 Pain of temporomandibular joint 24954569 M26.629 Bilateral disorder of Eustachian tubes 7237267924 256725 H69.93 Health Concerns Section Related Observation LastModified by Organization Detai ls LastModified Time None Recorded Concern Status LastModified by Organization Details LastModified Time None Recorded Advance Directives Directive None Recorded Payers Insurance Date Sequence Insurance Name Policy Number Policy Simon Covered Member ID Simon Member ID Guarantor Name 08/24/2024 1 [facility] - DOS ON OR AFTER 2022 - ONE CARE (MEDICARE REPLACEMENT/ADV ANTAGE - HMO) Steven Subramanian [id number] Steven Subramanian 12/06/2023 1 [employer] - [facility] [place] ([place]/ADV ANTAGE - HMO) Steven Subramanian [id number] Steven Salazar Moris 01/24/2024 1 [facility] - DOS ON OR AFTER 2022 - MEDICARE ADVANTAGE [place] (MEDICARE REPLACEMENT/ADV ANTAGE - PPO) Steven Salazar Moris [id number] Steven Salazar Moris Notes Date Note Type [...] the ears with improvement. DMITRI LEE MD [address] [place] [address], [address], [facility] - [facility] 11/25/2023 17:06:21 01/24/2024 text/html 58-year-old male with history of recurrent cerumen impaction, psoriasis affecting the external ears, and ETD s/p T-tube placement in March 2016 with wa presents for follow up of ETD. He [...] patent. Patient has binaural amplification dispensed at [facility] audiology. JABARI DELVALLE MD [address] [place] [address],[address], [address], [facility] 01/24/2024 16:11:26 06/18/2024 text/html 59 year [...] not bring them today. Got them in [place] some years ago. He does not have tinnitus. MARY ELLEN FOOTE MD [address] [facility],[address], [address], [facility] - [facility] 06/18/2024 21:22:33 08/24/2024 text/html 59-year-old male with T tubes presents for reevaluation of right ear pain. He reports minimal improvement with topical DermOtic. This pain occurs 2-3 times weekly. He denies inciting events. He does have a history of arthritis. FAITH MEDINA MD [address] [facility],[place] [address], [place], [address], [facility] - [facility] 08/26/2024 08:15:56
--- OUTSIDE RECORDS SUMMARY | 2024-10-26 15:36 | XMS_ITS | Encounter Summary ---
Author Organization [employer] Address [address] [facility] [address] [place] [address] Care Team Providers Care Assembly Mechanic Name Role Phone Name, Leland MIMS Primary Care Provider [phone] Reason for Visit * Reason Onset Date Comments Call Back Request 10/05/2024 Encounter Details Date Type Department Care Team ([facility] st Contact Info) Description 10/05/2024 Telephone [facility] [address] [place] [address] Name, MD Leland [address] [place] [address] Call Back Request Social History Tobacco Use [...] call with [facility] [place] [id number] Pt is calling in regards to concerns that Pt is diabetic. Pt does have dx of impaired glucose intolerance. Pt reports an open area behind left knee that has never healed and an ulcer . It is unclearto inspector automatic typewriter if this is a wound that is [...] 10/05/2024 4:01 PM EDT Called pt. Via [employer] [phone] [address]. Triage nurse notified me that she is currently on phone with pt. No answer as pt. Is on other line. * Telephone Encounter - Loi Cobos - 10/05/2024 3:40 PM EDT TC from pt returning call regarding prior message. Contact pt at [phone] * Telephone Encounter - Vic Finnegan - [...] has not yet been contacted by the facility.Secretary does not see referral in system; pt states that his condition is worsening. ( Denied triage ) Please return call [phone] ([place]) documented in this encounter Plan of Treatment Upcoming Encounters Date Type Department Care Team (Late st Contact Info) Description 11/16/2024 9:00 AM EDT Office Visit [facility] [address] [facility] [place] [address] Name, MD Leland [address] [place] [address] documented as of this encounter Visit Diagnoses Not on filedocumented in this encounter Additional Health Concerns Assessment Noted Time PHQ-9 Depression Total Score: 0 09/14/19 24 3:10 PM EDT documented as of this encounter Care Teams Assembly Mechanic Relationship Specialty Start Date End Date Name, MD Leland [place] [facility] [place] [address] PCP - General Family Medicine 08/26/15 documented as of this encounter
--- OUTSIDE RECORDS SUMMARY | 2024-10-26 15:36 | XMS_ITS | Clinical Summary ---
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 Patient follows at [facility] and has been treated with injections [...] DEPARTMENT Provider, Generic External Data 10/11/2024 Refill [facility] [address] [place] [address] Leland Brandon MD Insomnia, unspecified type 10/09/2024 Telephone [facility] [address] [place] [address] Kelsi Huff, ANNITA 10/05/[address] [address] Leland Brandon MD Call Back Request 09/20/[address] [address] Leland Brandon MD Med Refill; NTTS 09/19/[address] [address] Leland Brandon MD Durable Medical Equipment 09/17/2024 10:15 AM EDT Office Visit [address] [address] Leland Brandon MD Ulcer of left lower leg associated with varicose veins (CMS/HCC) (Primary Dx); Chronic deep vein thrombosis (DVT) of left lower extremity, unspecified vein (CMS/HCC); Chronic pain syndrome 09/17/2024 Travel 09/12/2024 Refill [facility] [address], [place] [phone] Leland Brandon MD Insomnia, unspecified type 09/10/2024 Patient Outreach [facility] [address], [place] [phone] Leland Brandon MD Pre-visit Planning (SDOH negative, Tobacco screening negative.) 09/06/2024 Refill [facility] [address] [place] [address] Leland Brandon MD Low back pain due to bilateral sciatica 08/31/2024 Orders Only [facility] External Provider, [facility] 08/30/2024 10:00 AM EDT Office Visit [facility] [address] [place] [address] Leland Brandon MD Acute deep vein thrombosis (DVT) of left lower extremity, unspecified vein (CMS/HCC) (Primary Dx); Ulcer of left lower leg associated with varicose veins (CMS/HCC); Chronic midline low back pain with sciatica, sciatica laterality unspecified 08/30/[address] [address] Leland Brandon MD Call Back Request 08/30/2024 Travel 08/27/[address] [address] Leland Brandon MD Nurse Triage 08/20/2024 3:20 PM EDT Office Visit [facility] [address] [place] [address] Leland Brandon MD Left leg pain (Primary Dx); Presence of IVC filter; Recurrent deep vein thrombosis (CMS/HCC); Cellulitis of left lower extremity; Ulcer of left lower leg associated with varicose veins (CMS/HCC); Venous stasis dermatitis of both lower extremities; Hand eczema 08/17/2024 Patient Outreach [address] [address] Leland Brandon MD Transition Of Care (Tcm) (HDF scheduled) 08/17/[address] [address] Leland Brandon MD Hospital Follow-up 08/16/[address] [address] Leland Brandon MD Insomnia, unspecified type 08/07/2024 1:15 PM EST Office Visit [address] [address] Stacey Wade MD Cellulitis of left lower extremity (Primary Dx); Neurogenic claudication due to lumbar spinal stenosis 08/07/2024 Travel 08/06/2024 Telephone [facility] [address] [place] [address] Name, MD Leland Nurse Triage 08/01/2024 2:15 PM EST Office Visit [facility] [address] [facility] [place] [address] Name, MD Leland Cellulitis, unspecified cellulitis site (Primary Dx); Chronic pain syndrome; Tremor of both hands from Last 3 Months Immunizations Immunization Administration Dates Next Due Influenza Injectable Quadriv [...] 9:00 AM EDT Office Visit [facility] [address] [place] [address] Name, MD Leland [address] [place] [address] Health Maintenance Due Date Last Done Comments [...] Associated Diagnosis Comments SED RATE BY MODIFIED WESTERGREN Routine 10/16/2024 [...] Blood Count 9.1 4.8 - 10.8 X10*3/uL [facility] Red Blood Count 4.14(L) 4.60 - 5.80 X10*6/uL [facility] Hemoglobin 12.7(L) 14.0 - 18.0 g/dl [facility] Hematocrit 39.8(L) 42.0 - 52.0 % [facility] Mean Corpuscular Volume 96.1 80.0 - 98.0 fL [facility] Mean Corpuscular Hemoglobin 30.7 27.0 - 33.0 pg [facility] Mean Corpuscular HGB Conc 31.9 31.0 - 36.0 g/dl [facility] Red Cell Distribution Width 14.4 11.0 - 16.0 % [facility] Platelet Count 213 160 - 400 X10*3/uL [facility] Mean Platelet Volume 10.2 9.4 - 12.4 fL [facility] Neutrophils Percent Auto 74.5(H) 45 - 73 % [facility] Imm Gran Pct Auto 0.7(H) 0.0 - 0.4 % [facility] Lymphocytes Percent Auto 15.1(L) 20 - 40 % [facility] Monocytes Percent Auto 8.4 2 - 11 % [facility] Eosinophils Percent Auto 1.2 0 - 4 % [facility] Basophils Percent Auto 0.1 0 - 2 % [facility] NRBC Pct Auto 0.0 0.0 - 0.2 /100WBC [facility] Neutrophils Absolute Auto 6.8 2.0 - 8.3 x10*3/uL [facility] Imm Gran Abs Auto 0.06(H) 0.00 - 0.03 X10*3/uL [facility] Lymphocytes Absolute Auto 1.4 1.2 - 4.9 X10*3/uL [facility] Monocytes Absolute Auto 0.8 0.1 - 1.2 X10*3/uL [facility] Eosinophils Absolute Auto 0.1 0.0 - 0.4 X10*3/uL [facility] Basophils Absolute Auto 0.0 0.0 - 0.2 X10*3/uL [facility] NRBC Abs Auto 0.000 0.0 - 0.012 X10*3/uL [facility] 10/16/2024 2:57 PM EDT 10/16/2024 2:57 PM EDT us Generic External Data Provider LAB BLOOD ORDERAB LES Final Result Performing Organization Address [facility]/ZIP Co de Phone Number [facility] [address] [place] [address] [phone] * (ABNORMAL) Sed Rate by Modified Shadyergren (10/16/2024 2:57 PM EDT) [facility] Erythrocyte Sedimentation Rate 18(H) 0 - 15 MM/HR [facility] Comment:Patients with polycy themia and many hemoglobin abnormalitiesmay have depressed sed rates whereas patients with anemiamay have elevated sed rates. 10/16/2024 2:57 PM EDT 10/16/2024 2:57 PM EDT us Generic External Data Provider LAB BLOOD ORDERAB LES Final Result Performing Organization Address [facility]/ZIP Co de Phone Number [facility] [address] [place] [phone] * (ABNORMAL) Basic Metabolic Panel (10/16/2024 2:57 PM EDT) [facility] Sodium 140 135 - 145 mmol/L [facility] Potassium 4.4 3.3 - 5.1 mmol/L [facility] Chloride 102 96 - 108 mmol/L [facility] Carbon Dioxide 33(H) 22 - 29 mmol/L [facility] Anion Gap 9(L) 12 - 20 [facility] Urea Nitrogen (BUN) 21(H) 9 - 16 mg/dL [facility] Creatinine, Serum 0.75 0.5 - 1.4 mg/dL [facility] Estimated Glomerular Filt Rate >60 [facility] Comment:Chronic Kidney Disea se: Estimated GFR < 60 mL/min/1.70i7Mwcujq Kidney Disease: Estimated GFR < 15 mL/min/1.73m2 Glucose 79 60 - 115 mg/dL [facility] Calcium 9.1 8.4 - 10.2 mg/dL [facility] 10/16/2024 2:57 PM EDT 10/16/2024 2:57 PM EDT us Generic External Data Provider LAB BLOOD ORDERAB LES Final Result [facility] [address] [place] [address] [phone] * Referral to Neurology (09/25/2024) us Leland Name MD OUTPATIENT REFERRAL ORDERABLES E dited Result - Final * XR Lumbar Spine Complete 4+ Views (08/31/2024 2:06 PM EDT) Anatomical Region Laterality Modality Spine, L-spine Radiographic Rasheeda ging 08/31/2024 2:06 PM EDT Narrative 09/03/2024 1:46 PM EDT ? [facility] ? [address] ?[place] [address] ?XRay Report ? Signed ? Patient: Moris PostSteven dean ?MR#: M ?? [id number] ? : 1965 ?Acct:[id number] ? Age/Sex: 59 / M ?ADM Date: 08/31/24 ? Loc: HO.HOSX ? Attending Dr: Francisco MCKEON ? Ordering Physician: Francisco Velez ?? Date of Service: 08/31/24 ?? Procedure(s): XR lumbar spine 4V min ?? Accession Number(s): [id number] ? cc: Francisco Velez; Name,Leland MIMS ? [...] DD/ 1406 ? TD/TT: 08/31/24 1410 ? Media Production Manager: ? Procedure Note Darlin, Image - 09/03/2024 [facility] [address] [place] [address] [address] [place] [address] XRay Report Signed Patient: Michele Novak#: M [id number] : 1965Acct:[id number] Age/Sex: 59 / MADM Date: 08/31/24 Loc: HO.HOSX Attending Dr: Francisco MCKEON Ordering Physician: Francisco Velez Date of Service: 08/31/24 Procedure(s): XR lumbar spine 4V min Accession Number(s): [id number] cc: Francisco Velez; Name,Leland MIMS EXAMINATION: XR [...] 09/03/24 1343 DD/ 1406 TD/TT: 08/31/24 1410 Media Production Manager: [facility] External Provider IMG XR PROCEDURES Final Result * TSH W/Reflex to FT4 (08/01/2024 3:05 PM EST) TSH reflex Free T4 0.69 0.32 - 4.0 uIU/mL [facility] Blood Venous blood specimen / Unknown 08/01/2024 3:05 PM EST 08/01/2024 4:20 PM EST Leland Brandon MD LAB BLOOD ORDERABLES Final Resul t [facility] [address] [place] [phone] * Hepatitis C Antibody with Reflex to HCV, RNA, Quantitative, Real-Time PCR (10/14/2023 11:05 AM EDT) Hepatitis C Antibody Nonreactive Nonreactive [facility] Comment:Antibodies to HCV no t detected; does not exclude early acuteHCV infection. Blood Venous blood specimen / Unknown 10/14/2023 11:05 AM EDT 10/14/2023 1:15 PM EDT us Leland Brandon MD LAB BLOOD ORDERABLES Final Resul t Performing Organization Address [facility] Co de Phone Number [facility] [address] [place] [phone] * HIV-1/2 Antigen and Antibodies, Fourth Generation, with Reflexes (10/14/2023 11:05 AM EDT) HIV AB/AG Nonreactive Nonreactive [facility] Comment:HIV-1 p24 Ag and/or HIV-1/HIV-2 Ab not detected.A test result that is nonreactive does not exclude thepossibility of exposure to or infection with HIV-1 and/orHIV-2. Nonreactive results in this assay for individualswith prior exposure to HIV-1 and/or HIV-2 may be due toantigen and antibody levels that are below the limit ofdetection of this assay.The LiveRamp HIV Ag/Ab Combo assay result andsupplemental assay results should be interpreted inconjunction with the patient's clinical presentation,history and other laboratory results. If the results areinconsistent with clinical evidence, additional testing issuggested to confirm the result. Blood Venous blood specimen / Unknown 10/14/2023 11:05 AM EDT 10/14/2023 1:15 PM EDT us Leland Brandon MD LAB BLOOD ORDERABLES Final Resul t Performing Organization Address City/[facility]/ZIP Co de Phone Number [facility] [address] [place] [address] [phone] * (ABNORMAL) Lipid Panel, Standard (10/14/2023 11:05 AM EDT) Triglycerides 105 <150 mg/dL [facility] Comment:Desirable Triglyceri de: less than 150 mg/dLBorderline High Triglyceride 150-199 mg/dLHigh Triglyceride: 200-499 mg/dLVery High Triglyceride: greater than or equal to 5OO mg/dL Cholesterol 192 <200 mg/dL [facility] Comment:Desirable Cholestero l: less than 200 mg/dLBorderline High Cholesterol: 200-239 mg/dLHigh Cholesterol: greater than 239 mg/dL LDL Cholesterol Calculated 102(H) <100 mg/dL [facility] Comment:Desirable LDL: less than 100 mg/dLNear Optimal/Above Optimal LDL: 110- 129 mg/dLBorderline High LDL: 130-159 mg/dLHigh LDL: 160-189 mg/dLVery High LDL: greater than or equal to 190 mg/dL HDL Cholesterol 69 >40 mg/dL [facility] Comment:Desirable HDL: great er than 40 mg/dL Note: This HDL assay may give artificially low results in patients with liver disease. Blood Venous blood specimen / Unknown 10/14/2023 11:05 AM EDT 10/14/2023 1:15 PM EDT us Leland Brandon MD LAB BLOOD ORDERABLES Final Resul t [facility] [address] [place] [phone] * Hm Colonoscopy (07/14/2023) Colonoscopy Normal Normal Comment:Normal Colonoscopy r epeat 10 years us Leland Brandon MD HEALTH MAINTENANCE Final Result from Last 3 Months or Most Recently Relevant to Health Maintenance Insurance [facility] CARE < [address] [place] [id number] Care Teams Fish Liver Sorter Relationship Specialty Start Date End Date Name, MD Leland [address] [place] [phone] PCP - General Family Medicine 08/26/15
--- OUTSIDE RECORDS SUMMARY | 2024-10-26 15:36 | XMS_ITS | Referral Summary ---
Author Organization [facility] Address [address] [place] [address] Care Team Providers Care Dry Cell Assembly Supervisor Name Role Phone No, Pcp Primary Care [...] Treatment Not on file Insurance Care Teams Dry Cell Assembly Supervisor Relationship Specialty Start Date End Date No, Pcp HIREN PCP - General 01/29/22
--- OUTSIDE RECORDS SUMMARY | 2024-10-26 15:36 | XMS_ITS ---
Author Organization [facility] Address [address] [facility] [place] [address] Care Team Providers Care Chalk Tester Name Role Phone Name Leland MIMS Primary Care Provider Unavailabl e Black, Yaquelin Unavailable [phone] PericaNalini Unavailable [phone] Allergies No Known Allergies REASON FOR VISIT Painful nail(s) aggrevated by shoes causing difficulty standing/walking, Foot pain Medications Medication SIG (Take, Route, Frequency, Duration) Notes Start Date End Date Status Naproxen 500 MG 1 tablet Orally WITH FOOD Twice a day for 14 days 01/28/2023 Not-Taki ng Ciclopirox 0.77 % 1 application [place] ally Twice a day for 30 days [...] Piroxicam 20 MG TAKE 1 CAPSULE BY [facility] EVERY DAY WITH FOOD FOR 30 [...] 05/21/2024 Encounters Encounter Location Date Provider Diagnosis [facility] [address] [address] 05/21/2024 Nalini Dyer Tinea unguium B35.1 ; [...] Provider Name:Nalini addison, 11/15/2024 02:30:00 PM, [address] [facility], [place], [address], Procedure Notes * Category Sub-Category Detail Notes [...] * Rajeev MCLAUGHLINOB: 3 (59 yo M)Acc No.[id number]:05/21/2024 Progress Note Patient:?Steven MCLAUGHLIN Provider:?Nalini Dyer DPM :1965???Age:59 Y???Sex:Male Jose e:05/21/2024 Address:[address] [place], [place] [phone] Pcp:Leland Brandon MD Subjective: * Chief Complaints: [...] M77.52??? Plan: * Treatment: * Procedures:?Injection:?Sm. Joint, Bursa?76661, J0702 Injection - Left 2nd interspace sm/med [...] ( 0-1) out of 10.? * Procedure Codes:?30361 DEBRI DE NAIL, 6 OR MORE, Modifiers: XS 66863 DRAIN/INJECT, JOINT/BURSA, Modifiers: XS J0702 INJ BETAMETHSN [...] Dyer DPM Date:?02/2024 Generated for Luisa john/Faxing/eTransmitting on:?10/26/2024 03:36 PM EDT History and Physical Notes [...]
--- OUTSIDE RECORDS SUMMARY | 2024-10-26 15:36 | XMS_ITS | Clinical Summary ---
Author Organization [facility] Address [address] [place] [address] Care Team Providers Care Crosscutter Name Role Phone No, Pcp Primary Care [...] (2 of 2 - PCV) 11/28/2016 11/29/2015 COVID-19 Vaccine ( season) 2024 06/18/2021, 10/30/2020, 10/02/2020 Alcohol/Substance Use Screening 06/13/2024 Depression Screening and Follow-Up 06/13/2024 Social Drivers of Health Annual Screening 06/13/2024 Influenza Vaccine (Season Ended) 2025 03/24/2021, 04/10/2020, 05/17/2019, Additional history exists DTaP,Tdap,and Td Vaccines (2 - Td or Tdap) 03/20/2028 03/20/2018, 07/09/1998 RSV Vaccine (60+ years old and patients) (1 - 1-dose 75+ series) 2038 Zoster Vaccines Completed 08/26/2020, 06/25/2020 Hepatitis B Vaccines Aged Out No long er eligible based on patient's age to complete this topic Insurance [facility] Care Teams Crosscutter Relationship Specialty Start Date End Date No, Pcp HIREN PCP - General 01/29/22
--- OUTSIDE RECORDS SUMMARY | 2024-10-26 15:36 | XMS_ITS | Encounter Summary ---
Author Organization [employer] Address [address] [facility] [address] [place] [address] Care Team Providers Care Rn Employee Health Name Role Phone Name, Leland MIMS Primary Care Provider [phone] Reason for Visit * Reason Onset Date Comments Med Refill 05/25/2024 Encounter Details Date Type Department Care Team ([facility] st Contact Info) Description 05/25/[address] [facility] [address] [place] [address] Name, MD Leland [address] [place] [address] Med Refill Social History Tobacco Use Types [...] 4 MG tablet To be sent to: [facility] documented in this encounter Plan of Treatment Upcoming Encounters Date Type Department Care Team (Late st Contact Info) Description 11/16/2024 9:00 AM EDT Office Visit [facility] [address] [place] [phone] Name, MD Leland [address] [place] [address] documented as of this encounter Visit Diagnoses Not on filedocumented in this encounter Additional Health Concerns Assessment Noted Time PHQ-9 Depression Total Score: 0 09/14/19 24 3:10 PM EDT documented as of this encounter Care Teams Rn Employee Health Relationship Specialty Start Date End Date Name, MD Leland [address] [place] [address] PCP - General Family Medicine 08/26/15 documented as of this encounter
--- OUTSIDE RECORDS SUMMARY | 2024-10-26 15:36 | XMS_ITS | Data Portability ---
Author Organization [facility], Pr in - Formerly [facility] Address [address] [place] [phone] Care Team Providers Care Lab Animal Technician Name Role Phone [facility] Referring Provider HIM [facility] OTHER Assessment No assessment recorded. Plan of Treatment Reminders Order Date Submit Date Provider Last Modified By Organization Details Last Modified Time Details Appointments None recorded. Lab glucose, fingerstick , blood 2024 025 [facility], [address] [place] [address], [phone] 5 19:56:40 Referral None recorded. Procedures None recorded. Surgeries None recorded. Imaging None recorded. Medication Orders cephalexin 500 mg capsule 2023 024 [id number], [address] [place], [address], 4 20:15:29 cephalexin 500 mg capsule 2023 [...] Available Not Available No t Available omega [id number]-sts-kms-fi sh oil 1,000 mg (120 mg-180 mg) [...] Updated DateTime 4 86 /min 18 /min 756685. 72 g 98.6 [degF] 98 % 98 % 154 mm[Hg] 94 mm[Hg] Not Available [employer] 4 20:11:37 Date Recorded Respiratory rate Oxygen saturation Oxygen saturation in Arterial blood by Pulse oximetry Body temperature Heart rate Systolic blood pressure Diastolic blood pressure Provider Name and Address Organization Details Last Updated DateTime 2 20 /min 94 % 94 % 97.7 [degF] 74 /min 125 mm[Hg] 75 mm[Hg] Not Available [employer] 2 07:41:40 Date Recorded Oxygen saturation Oxygen saturation in Arterial blood by Pulse oximetry Heart rate Respiratory rate Body temperature Systolic blood pressure Diastolic blood pressure Provider Name and Address Organization Details Last Updated DateTime 5 100 % 100 % 73 /min 18 /min 97.8 [degF] 158 mm[Hg] 102 mm[Hg] Not Available [employer] 5 15:34:41 Social History None recorded. Functional Status None recorded. Mental Status None recorded. Family History Nothing Reported. Medical History No medical history recorded. Past Encounters Encounter ID Performer Location Encounter Start Date Encounter Closed Date Diagnosis/Indication Diagnosis SNOMED-CT Code Diagnosis ICD10 Code Diagnosis Note [id number] Lucia Khoury MD [facility] - [facility] [address] [place] [id number] 12/05/2021 07:41:38 02/10/2022 10:34:04 History of deep vein thrombosis 821433920 Z86.718 56 year old male with chronic [...] primary regarding why this change was made. [id number] Arsalan Vera MD Main - [facility] [address] [place] [phone] 06/23/2023 20:11:26 06/23/2023 22:45:58 Cellulitis of left lower limb [id number] L03.116 Reports increased redness and swelling of LLE. On enoxaparin for history of DVT. No new swelling. Pulses normal per paving foreman. No fevers, chills, systemic symptoms. Plan for empiric treatment with cephalexin and PCP follow-up [id number] Ashely Infante MD Main - [facility] [address] [place] [id number] 10/06/2024 15:28:53 10/06/2024 18:43:01 Chronic ulcer of skin [id number] L98.499 As noted, we were called to see this patient regarding concerns of wound Evaluation in the field was performed by my paving foreman colleague, as noted above, I provided real-time direction and supervisio n for this visit. The evaluation revealed 59 yo man with HTN who calls for a skin ulcer. He has had a left calf ulcer since June after he had varicose vein surgery. He was seen at [facility] last week and told [...] Member ID Simon Member ID Guarantor Name 06/23/[address] [facility] - DOS PRIOR TO 2022 - DUAL ELIGIBLE (MEDICARE REPLACEMENT/ADV ANTAGE - HMO) Steven Subramanian [id number] Steven Subramanian 10/15/[address] [facility] - DOS ON OR AFTER 2022 - DUAL ELIGIBLE - PENITENTIARY OPTIONS AND ONE CARE (MEDICARE REPLACEMENT/ADV ANTAGE - HMO) Steven Subramanian [id number] Steven Subramanian Notes Date Note Type Note [...] .................... .................... .................... .................... .................... .................... . Occ Therapist Note: Patient bilateral lower extremity pain times [...] .................... . Disposition: Fulfilled Lucia Khoury MD [address] [place] [address],[address], [place], [phone], [facility] [email or web address] 12/05/2021 07:49:52 06/23/2023 text/html HPI: Chronic deep vein thrombosis (DVT) of left lower extremity 09/2018 Paatient seen by PCP 05/31/23 continues on Lovenox and compression stockings. No missed doses per patient. Increased pain and burning with ambulation. .................... .................... .................... .................... .................... .................... .................... . CRC Nurse Triage Notes (Mini Roche): Comments: Attempted to call for further information- No answer- N Melchor ARIZA .................... .................... .................... .................... .................... .................... .................... . Occ Therapist Note From Gatito Rios: Pt co itchy redness on left lower extremity that is also painful. Pt denies fever nausea vomiting diarrhea. Baseline vitals assessed. Extremity redish warm to touch . No edema. [facility] contacted pics uploaded ?500mg keflex given po and RX called in . Pt education on signs indicating the ER. .................... .................... .................... .................... .................... .................... .................... . Disposition: Fulfilled Arsalan Vera MD [address] [place] [address],[address], [place], [phone], [employer] 06/23/2023 21:40:40 10/06/2024 text/html HPI: Pt called with concerns about having diabetes, increased urination occurring. Pt also reports an ulcer Left lower extremity that is not healing. WIC at [facility] is closed at this time unable to [...] .................... .................... .................... .................... .................... .................... . Occ Therapist Note From Oj Hoffmann: Encountered patient conscious, alert and ambulatory. Patient reports he underwent a surgery to address varicose veins, which resulted in him returning to the office to have a ? p oint? removed, leaving an approximately [id number] ulcer. Patient reports it is not weeping, [...] and edema; left calf region exhibits ulcer. [facility] contacted: reports patient is currently under care of both a wound care clinic and a primary care physician which are attending his needs. [facility] strongly encourage his patient to attend his wound care appointment on 10/08/24 and to contact his primary care physician in order to schedule a sooner appointment; patient is due to see primary care on 11/16/24. [facility] additionally states that if the wound care [...] .................... .................... .................... .................... .................... .................... . [facility] Consulted: Ashely Infante .................... .................... .................... .................... .................... .................... .................... . Disposition: Elif Infante MD [address] [facility],[address], [place], [phone], [employer] 10/06/2024 17:19:28
--- OUTSIDE RECORDS SUMMARY | 2024-10-26 15:36 | XMS_ITS | Encounter Summary ---
Author Organization [employer] Address [address] [facility] [address] [place] [address] Care Team Providers Care Hotel Or Motel Cleaning Supervisor Name Role Phone Name, Leland MMIS Primary Care Provider [phone] Reason for Visit * Reason Comments Med Refill Encounter Details Date Type Department Care Team ([facility] Contact Info) Description 10/22/2022 Refill [facility] [address] [place] [address] [phone] Name, MD Leland [address] [place] [phone] Insomnia, unspecified type Social History Tobacco Use [...] Encounters Date Type Department Care Team ([facility] Contact Info) Description 11/16/2024 9:00 AM EDT Office Visit [facility] [address] [place] [address] Name, MD Leland [address] [place] [address] documented as of this encounter Visit Diagnoses Diagnosis Insomnia, unspecified type documented in this encounter Additional Health Concerns Assessment Noted Time PHQ-9 Depression Total Score: 0 09/07/19 23 1:16 PM EDT documented as of this encounter Care Teams Hotel Or Motel Cleaning Supervisor Relationship Specialty Start Date End Date Name, MD Leland [address] [place] [address] PCP - General Family Medicine 08/26/15 documented as of this encounter
== END 2024-10-26 16:06 | disposition home or self-care (01) ==
LOC: HO.HNS 15:33
PROVIDERS: PCP Internal Medicine Geriatric Medicine; Visit Provider Physician Assistant
DX: M48.062 Spinal stenosis, lumbar region with neurogenic claudication (principal)
CPT/HCPCS: 99213

== ENCOUNTER → 2024-10-26 15:33 | Outpatient (BNVA) | payer OTHER, SELFPAY | PROVIDERS: PCP Internal Medicine Geriatric Medicine; Visit Provider Physician Assistant | DX: M48.062 Spinal stenosis, lumbar region with neurogenic claudication (principal) | CPT/HCPCS: 99212 ==

== ENCOUNTER 2024-11-08 10:48 | Outpatient (AMB) | payer OTHER, SELFPAY ==
--- NOTE | 2024-11-08 10:51 | MHC.OFFVIS ---
Vital Signs 11/08/24 10:55 Height 6 ft Weight 290 lb BMI 39.3 BP 142/73 H Blood Pressure Location Lt brachial Position Sitting Pulse 83 Pulse Source Pulse Oximeter Pulse Oximetry (%) 98 Oxygen Delivery Method Room Air Intake Visit Reasons: Discuss injections/sent by the spine ctr Intake Note: Pain today 03/22 Loss Prevention Representative Required: Yes Loss Prevention Representative Language: Business Leader Services: Loss Prevention Representative Present Loss Prevention Representative Name: Mishel #[id number] Information Interpreted: non-clinical & clinical Accompanied by: Self / Same As Patient Allergies No Known Allergies Allergy (Verified 11/08/24 10:56) HPI Comments Details: The patient is a 59-year-old male presenting with chronic back pain. He has suffered from back pain for around 30 years, attributed to degenerative disc disease, lumbar spinal stenosis, and a herniated disc at L4-L5. He has been evaluated by [facility], and decompression surgery was discussed, but he opted to try injections first. His pain is multifactorial, involving disc degeneration, arthritis, and spinal stenosis, with pinched nerve roots and grade 1 slippage at L4-L5. The pain radiates from the middle of the back to both legs, to anterior thighs and shins and lateral lower legs. He also has foot ulcers under care of Wound Care center and presents with natalia wrapped bilateral lower extremities. Pain is constant with movements such as bending, extending, walking, and sitting. [facility] 10/26/24 Francisco Velez PA-C Mr colindres is here in follow-up. Please refer to my last note for the specifics of his problem. He came back today after starting physical therapy, but more less it did not help all that much. Today's visit was done with the help of my product marketing coordinator and map drafter Katlin. The patient describes ongoing issues with his back pain which he has had for 30 years after he fell out of a [employer] or building. He also has the bilateral leg pain with standing and walking. We had previously reviewed his films and he has a grade 1 spondylolisthesis at L4-5 with moderate to severe stenosis at that level. He also has moderate stenosis at L3-4. We had a lengthy discussion about what surgery would entail. Specifically the goals of surgery at L4-5 with a spondylolisthesis would be to treat the back pain and the leg pain. We did admonished him however the success rate for the back pain is 60-70%, and given that he is had the pain now for 30 years too hard to predict if this would completely go away after surgery, in fact we would likely predict it would not, but it may get slightly better. With regard to the leg pain, if he was not interested in treating the back pain and was accepting of that as a lifelong issue that may just be with him, a simple decompression could be done at L4-5. That would address the leg pain but again would not address the back pain. For now, he does not want to consider surgery at all. He is interested in seeing if there any injections that can help him so I will send him back to the pain management center here at [place] who originally sent him to us to be re-evaluated. PRIOR: The patient is a 59-year-old male with complex medical history, including recent hospitalization for DVT, left lower extremity cellulitis and sepsis, presenting with chronic low back pain with worsening radiculopathy for the past five months. Denies any recent injury, trauma, or falls. He describes the pain as severe and stabbing, originating in the lower back and radiating down the left leg, affecting both anterior and posterior aspects. Reports chronic venous insufficiency with previous history of DVTs and PEs and currently on Xarelto per patient. Numbness, tingling, and urinary incontinence accompany the pain, causing significant limitations to mobility, as he is unable to walk more than two minutes without a break. The patient is currently managing the condition with Tylenol and gabapentin. He is on methadone therapy for opioid dependence. Reports increased left leg pain due to an ongoing edema and pain with healing ulcers in anterior shins bilaterally without pathological discharge or tenderness. Currently, he is unable to pursue formal physical therapy due to significant low back pain with leg pain which limits his walking capacity and movements. Lumbar spine MRI was completed last month, noted for multilevel lumbar spondylosis resulting in grade 1 anterolisthesis L4-5 and multilevel central spinal canal and neuroforamina stenosis more conspicuous at L4-5 and to a lesser extent L2-3, L3-4 and L5-S1 levels. Epidural lipomatosis from L3 to sacrum. Patient denies previous spine surgical surgery or injections or recent physical or chiropractic therapy. - Onset: Several years ago, worsening in the past five months. - Quality: Stabbing, shooting, aching, numbness, tingling, burning. - Primary location: Low back. - Radiation: Down the entire left leg, affecting anterior, lateral, and posterior aspects. Intermittently affecting right leg. - Exacerbating Factors: Walking >2 min, bending forward or backward, climbing stairs - Alleviating Factors: Medications (partial relief). - Impact: Unable to perform daily activities without interruption; the significant impact on mobility and function, and sleep. - Affect: Pain causes significant limitations in mobility, daily activities and sleep. - Analgesia: Patient currently on Tylenol, gabapentin, tizanidine; current use of methadone for opioid dependence. - Adverse Effects: Reports difficulty in daily function, no specific side effects detailed from medications. - Activities of Daily Living: Severely limited; cannot walk more than two minutes without stopping. - Aberrant Drug-Related Behaviors: History of opioid use, currently managed with methadone prescribed through a program. [facility] Medical History COPD (chronic obstructive pulmonary disease) Dyspnea Nocturnal hypoxia Hyperlipidemia History of recurrent deep vein thrombosis (DVT) Chronic back pain Methadone maintenance therapy patient REAGAN (obstructive sleep apnea) Personal history of nicotine dependence Thrombosed external hemorrhoid Morbid obesity Hypertension Chronic pulmonary embolism Current use of anticoagulant therapy Surgical History Hx of colonoscopy History of excision of mass Family History Father History of prostate cancer Social History Household Members: Friend(s) Alcohol intake: former Year quit: 2023 Patient Tobacco Use Status: Former Tobacco user Tobacco use type: Cigarette Years Smoked: onset 14, 1/2-1ppd x 42yrs, 30pyh Current occupational status: disabled Review of Systems Const Details: - Musculoskeletal: Reports chronic back pain, radiating to legs - Neurological: Denies any acute neurological deficits - Skin: Reports ulcers on the foot, sees Wound Care providers All systems reviewed & are unremarkable except as noted in HPI and below Physical Exam Vital Signs: Last Vital Signs Pulse 83 11/08/24 10:55 BP 142/73 H 11/08/24 10:55 Pulse Ox 98 11/08/24 10:55 Oxygen Delivery Method Room Air 11/08/24 10:55 BMI result Body Mass Index 39.3 General: Appears afebrile. Alert and oriented. Mood and affect appropriate. Poor historian, forgetful at times. Follows and participates in conversation appropriately. Respiratory effort is unlabored. No cough. Reports dyspnea on exertion. Able to transition from sit to stand with assistance. Uses cane with ambulation. Ambulates with antalgic gait with limping. Walks in flexed forward position to relieve back pain. General: Yes no CVA tenderness Back/Spine/Pelvis Other: Limited lumbar ROM due to pain. Lumbar flexion, bending and extension reproduce moderate to severe pain. Painful facet loading bilaterally. Patient experiences bilateral leg pain after walking a few minutes, right leg at times gives out due to significant low back pain and radicular pain. 4/5 right and 5/5 left hip flexion. TTP over midline and paraspinals L3-S1. DTR intact, diminished bilaterally. Back: no CVA tenderness Cervical Spine: loss of normal cervical lordosis, cervical muscular tenderness, pain with cervical ROM and No Cervical spine tenderness Thoracic/Lumbar Spine: thoracic and lumbar spine normal to inspection, No Thoracic/lumbar spine scar(s), Lasegue's sign positive bilateral and localized, pain with thoraco-lumbar ROM, paraspinal muscle tenderness, thoraco-lumbar ROM limited, No thoracic spinal tenderness and lumbar spinal tenderness (L3-S1) Pelvis: buttock tenderness (left>right) Sacroiliac joints: bilaterally tender to palpation Extrem General: Yes capillary refill normal, Yes no calf tenderness, No clubbing, Yes edema (nonpitting BLE) and Yes other (BLE with acewrap dressing, intact, dry.) Results Reviewed Results Reviewed: MR LUMBAR SPINE WITHOUT CONTRAST 07/16/24 CLINICAL INFORMATION: Severe low back pain. Neurogenic claudication. COMPARISON: None available. TECHNIQUE: MRI of the lumbar spine was obtained using routine sequences without contrast. FINDINGS: Last rib-bearing vertebra labeled T12. No bone marrow STIR signal abnormality. Multilevel marginal osteophyte formation and disc desiccation from T12-L1 to L5-S1. Grade 1 anterolisthesis L4-5. There is a 12 mm intrinsic hyperintense T1 and T2 bone lesion on the posterior right L1 vertebra likely intraosseous hemangioma. The conus medullaris ends at superior endplate of L1 with normal signal. Prominent epidural fat in a circumferential fashion from L3 to the sacrum. T12-L1: Facet joint hypertrophy as well as ligamentum flavum. Broad-based disc bulging. Bilateral neuroforamina narrowing. No central spinal canal stenosis. L1-2: Broad-based disc bulging. Facet joint and ligamentum flavum hypertrophy. Reduced AP diameter of the thecal sac and the neural foramina likely encroaching the exiting nerve roots. L2-3: Broad-based disc bulging. Facet joint and ligamentum flavum hypertrophy. Reduced AP diameter of the thecal sac with the CSF effacement. Bilateral neuroforamina stenosis likely encroaching the neural elements both thecal sac and the exiting nerve roots. L3-4: Broad-based disc bulging. Facet joint and ligamentum flavum hypertrophy. CSF effacement of the thecal sac. Bilateral neuroforamina stenosis encroaching posterior compressing the exiting nerve roots and encroaching the neural elements of the thecal sac. L4-5: Grade 1 anterolisthesis, broad-based disc bulging, facet joint and ligamentum flavum hypertrophy resulting in CSF effacement of the thecal sac and bilateral neuroforamina stenosis, right greater than the left compressing the neural elements both thecal sac and exiting nerve roots. L5-S1: Prominent epidural fat. Broad-based disc bulging. Facet joint and ligamentum flavum hypertrophy. Reduced AP diameter of the thecal sac and the neural foramina likely encroaching the neural elements. Asymmetric volume loss of the right psoas muscle. Probable cystic lesions in the parapelvic left kidney. IMPRESSION: Multilevel lumbar spondylosis resulting in grade 1 anterolisthesis L4-5 and multilevel central spinal canal and neuroforamina stenosis more conspicuous at L4-5 and to a lesser extent L2-3, L3-4 and L5-S1 levels. Epidural lipomatosis from L3 to sacrum. XR hip RAINE min 3V w/wo pel on 06/19/24 CLINICAL HISTORY: PAIN Exam: AP pelvis with AP and frog-leg lateral views of both hips. Comparison: Right hip radiographs December 14, 2023. Findings: Bony alignment of the hip joints is anatomic. No acute fractures are identified. 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 No erosions. Sacroiliac joints and pubic symphysis are unremarkable. Impression: No fracture. XR LUMBAR SPINE 4 OR MORE VIEWS 08/31/24 HISTORY: M48.062 - Spinal stenosis, lumbar region with neurogenic claudication COMPARISON: Comparison is made with the prior examination dated 06/18/2024. FINDINGS: AP, and neutral, flexion, and extension lateral views of the lumbar spine are submitted. Osseous mineralization is normal. There is mild rotatory dextroscoliosis. The vertebral bodies maintain normal height without evidence of fracture. There is grade I spondylolisthesis of L4 on L5. There is no significant change in flexion or extension. There is mild to moderate degenerative disc disease with disc space narrowing and osteophyte formation. There is osteoarthritis of the lower lumbar facet joints. And IVC filter is seen in place. IMPRESSION: Mild rotatory dextroscoliosis. Grade I spondylolisthesis of L4 on L5 without significant change in flexion or extension. Mild to moderate degenerative disc disease. Assessment & Plan Assessment & Plan (1) Spinal stenosis, lumbar region with neurogenic claudication: Code(s): M48.062 - Spinal stenosis, lumbar region with neurogenic claudication Category: Medical (2) Spinal stenosis, lumbar region with neurogenic claudication: Code(s): M48.062 - Spinal stenosis, lumbar region with neurogenic claudication Category: Medical (3) Chronic back pain: Code(s): M54.9 - Dorsalgia, unspecified; G89.29 - Other chronic pain Category: Medical (4) Varicose veins of left lower extremity with inflammation: Comment: 06/29/2024 - left small saphenous vein radiofrequency ablation Code(s): I83.12 - Varicose veins of left lower extremity with inflammation Category: Medical (5) Lumbar degenerative disc disease: Code(s): M51.369 - Other intervertebral disc degeneration, lumbar region without mention of lumbar back pain or lower extremity pain Category: Medical (6) Lumbosacral spondylosis: Code(s): M47.817 - Spondylosis without myelopathy or radiculopathy, lumbosacral region Category: Medical Plan Plans include administering bilateral transforaminal epidural steroid injections at L4-L5 with local and fluoroscopy to manage spinal stenosis related pain with significant back and leg pain. If the injections provide less than three months of relief, surgical options will be reconsidered per patient. The patient understands the conservative approach and the potential need for surgery, L4-L5 decompression per [facility] if pain persists or worsens. Expectations, risks and benefits were reviewed. Patient is aware he will be contacted to schedule this procedure. Patient was informed and verbally consented to the use of an ambient scribe for clinic note documentation during this visit. All questions and concerns have been answered and patient agreed with the plan. Follow up after injection and sooner as needed. Patient was informed and verbally consented to the use of an ambient scribe for clinic note documentation during this visit. Coding Level of Care Code Est Pt Level 4 (22486) Complex EM visit Add On G2211 Diagnoses Spinal stenosis, lumbar region with neurogenic claudication M48.062 Chronic back pain M54.9; G89.29 Varicose veins of left lower extremity with inflammation I83.12 Lumbar degenerative disc disease M51.369 Lumbosacral spondylosis M47.817
[2024-11-08 10:55] VITALS: BP 142/73; PULSE 83; O2SAT 98; BMI 39.3
--- OUTSIDE RECORDS SUMMARY | 2024-11-08 11:17 | XMS_ITS | Encounter Summary ---
Author Organization [employer] Address [address] [facility] 7t [place] [address] Care Team Providers Care Terrazzo Mechanic Helper Name Role Phone Name, Leland MIMS Primary Care Provider [phone] Encounter Details Date Type Department Care Team (Late st Contact Info) Description 07/19/2023 Abstract [facility] [address] [place], [place] [phone] Name, MD Leland [address] [place], [place] [phone] Social History Tobacco Use Types Packs/Day Years [...] 9:00 AM EDT Office Visit [facility] [address] [place] [address] NameLeland MD [address] [place] [address] documented as of this encounter Procedures Procedure [...] documented as of this encounter Care Teams Terrazzo Mechanic Helper Relationship Specialty Start Date End Date Name, MD Leland [address] [place] [address] PCP - General Family Medicine 08/26/15 documented as of this encounter
== END 2024-11-08 11:09 | disposition home or self-care (01) ==
LOC: HO.PMC 10:49
PROVIDERS: PCP Internal Medicine Geriatric Medicine; Referring Provider Physician Assistant; Visit Provider Nurse Practitioner Family
DX: M48.062 Spinal stenosis, lumbar region with neurogenic claudication (principal); M54.9 Dorsalgia, unspecified; G89.29 Other chronic pain; I83.12 Varicose veins of left lower extremity with inflammation; M51.369 Other intervertebral disc degeneration, lumbar region without mention of lumbar back pain or lower extremity pain; M47.817 Spondylosis without myelopathy or radiculopathy, lumbosacral region
CPT/HCPCS: 99214; G2211

== ENCOUNTER → 2024-11-08 10:48 | Outpatient (BNVA) | payer OTHER, SELFPAY | PROVIDERS: PCP Internal Medicine Geriatric Medicine; Referring Provider Physician Assistant; Visit Provider Nurse Practitioner Family | DX: M48.062 Spinal stenosis, lumbar region with neurogenic claudication (principal); M54.9 Dorsalgia, unspecified; M51.369 Other intervertebral disc degeneration, lumbar region without mention of lumbar back pain or lower extremity pain; M47.817 Spondylosis without myelopathy or radiculopathy, lumbosacral region; I83.12 Varicose veins of left lower extremity with inflammation; G89.29 Other chronic pain | CPT/HCPCS: 99212 ==

== ENCOUNTER 2024-12-11 14:48 | Outpatient (REF) | payer OTHER, SELFPAY ==
--- OUTSIDE RECORDS SUMMARY | 2024-08-02 10:45 | XMS_ITS ---
Author Organization [facility] Address [address] [place] [address] Care Team Providers Care El Teacher Name Role Phone Name Leland MIMS Primary Care Provider UnavailAlex Naqvimie Unavailable [phone] Nalini Dyer Unavailable [phone] Encounters Encounter Location Date Provider Diagnosis [address] [address] 08/02/2024 Nalini Dyer Plan Of Treatment Next Appt Details Provider Name:Nalini addison, 02/14/2025 02:00:00 PM, [address] [place] [address], [phone], Progress Notes * Jaren MCLAUGHLINsDOB: 3 (59 yo M)Acc No.[id number]:08/02/2024 Progress Note Patient: Kedar SALEEMsus Provider: Elmer Dyer DPM :1965 A ge:59 Y S ex:Male Date:08/02/2024 Address:[address] [place], [place] [id number] Pcp:Leland Brandon MD Subjective: * Chief Complaints: [...] 08/02/2024 Generated for Luisa john/Alexandrea/Clayton on: 0 12/11/2024 01:36 PM EDT
--- NOTE | ~2024-12-11 | US_ITS ---
EXAMINATION: US LOWER EXTREMITY VEINS BILATERAL HISTORY: M79.605 - Pain in left leg, Right leg swelling COMPARISON: Comparison is made with the prior examination dated 08/12/2021. TECHNIQUE: Duplex and color Doppler sonographic examination of the deep venous system of the bilateral lower extremities was performed. FINDINGS: The right common femoral, superficial femoral, and popliteal veins are patent demonstrating normal compressibility, spontaneous flow, and augmentation. There is a normal color and spectral Doppler waveform appearance of the visualized deep venous system above the knee. The posterior tibial and peroneal veins are not visualized. There is a complex fluid collection in the popliteal fossa measuring 5.9 x 1.4 x 2.7 cm, consistent with a Connell's cyst. The left common femoral and proximal superficial femoral veins are patent demonstrating normal compressibility, spontaneous flow, and augmentation. Again seen is occlusive thrombus in the distal superficial femoral and popliteal veins without change. The posterior tibial and peroneal veins are not visualized. The patient is status post ablation of the small saphenous vein 3 cm from the junction with the popliteal vein. US/US venous duplex LE BI IMPRESSION: 1. 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 2. No evidence of DVT in the right lower extremity. 3. 5.9 x 1.4 x 2.7 cm right popliteal fossa Connell's cyst. Electronically signed by: Cristian Herron MD 12/12/2024 07:18 AM EDT
--- OUTSIDE RECORDS SUMMARY | 2024-12-11 15:46 | XMS_ITS | Referral Summary ---
Author Organization [facility] Address [address] [place] [address] Care Team Providers Care Laundry Machine Tender Name Role Phone No, Pcp Primary Care [...] Treatment Not on file Insurance Care Teams Laundry Machine Tender Relationship Specialty Start Date End Date No, Pcp HIREN PCP - General 01/29/22
--- OUTSIDE RECORDS SUMMARY | 2024-12-11 15:46 | XMS_ITS | Clinical Summary ---
Author Organization [facility] Address [address] [place] [address] Phone Care Team Providers Care Registered Clinical Dietitian Name Role Phone Name, Leland MIMS Primary Care Provider [phone] Allergies No known active allergies Medications DICLOFENAC [...] Health Screening 03/16/2024 Depression Screening 09/13/2024 09/14/2023 Influenza Vaccine (#1) 2025 , 04/05/2023, 03/24/2021, Additional history exists DTaP,Tdap,and Td Vaccines (3 - Td or [...] Completed 10/14/2023 Hepatitis C Screening Completed 10/14/2023 HIB Vaccines Aged Out No longer eligi [...] ID:[id number] Group ID:[id number] Type:Not on file Address: [place] [address] [address] Care Teams Registered Clinical Dietitian Relationship Specialty Start Date End Date Name, MD Leland [address] [place] [address] PCP - General 01/06/15
--- OUTSIDE RECORDS SUMMARY | 2024-12-11 15:46 | XMS_ITS | Data Portability ---
Author Organization [place] [facility] Address [address] [address] Care Team Providers Care Behavioral Pediatrician Name Role Phone NAME, MARIO Primary Care [...] consider CT temporal bone given chronic symptoms. [email or web address] Not available 11/24/2023 17:08:14 01/24/2024 01/24/2024 Patient [...] Risks and benefits of surgery discussed using alteration specialist. Will begin the scheduling process and see him back at the time of surgery. [email or web address] Not available 01/24/2024 16:10:18 06/18/2024 06/18/2024 Patient presents postoperatively after insertion of T-tubes bilaterally 05/18. Has had a burning pain in the right ear. Physical exam reveals well placed and patent tubes without otorrhea. The skin of the right EAC is erythematous and dry though intact without edema. The conductive component of his hearing loss has resolved and he has a persistent ubtbaqxb-gb-wlrudi neurosensory loss. Recommend updated technology; [facility] provider list provided with medical clearance [...] oil 0.01 % ear drops 2024 025 [facility][id number], [address] [place], [address], 5 15:56:32 Patient TargetsNo targets recorded. Patient [...] Details Recorded Time History of tobacco use 40390789397 03 Active 2017 History of tobacco use; Note: Date Diagnose d: 11/17/2017 2:10 PM (V15.82) Not Available [facility] 4 02:48:23 Otorrhea of right ear 21604746383 88942 Active 2015 Otorrhea , right ear; Note: Date Diagnose d: 6 10:53 AM (H92.11) Not Available [facility] 4 02:48:27 Tinnitus of left ear 33397567787 06 Active 2015 Tinnitus , left ear; Note: Date Diagnose d: 6 1:49 PM (H93.12) Not Available [facility] 4 02:48:21 Pain of temporom andibula r joint 15102159 Active 2017 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, unspecif ied side; Note: Changed from M26.62 to M26.629 (01/08/20 23 2:39 PM) , Date Diagnose d: 11/17/2017 2:11 PM (M26.62) Not Available [facility] 4 02:48:26 Otalgia of left ear 6992772369 Active 2017 Otalgia, left ear; Note: Date Diagnose d: 11/17/2017 2:11 PM (H92.02) Otalgi a, left ear; Note: Date Diagnose d: 6 1:23 PM (H92.02) ; Start Date : 06/27/19 16 Not Available [facility] 4 02:48:25 Adhesive middle ear disease 3183876 Active 2013 Adhesive middle ear disease, unspecif ied as to involvem ent; Location : right CM S Risk: minimal risk CMS Treatmen t: self-cabrera ited or minor problem Conditio n: worse No te: Date Diagnose d: 4 4:36 PM (385.10) , Patient has a mild right anterior retracti on and left myringo- incudope xy Not Available [facility] 4 02:48:23 Sensorin eural hearing loss 04771503 Active 2015 Sensorin eural hearing loss, unilater al, left ear, with unrestri cted hearing on the contrala teral side; Note: Date Diagnose d: 6 3:27 PM (H90.42) Not Available [facility] 4 02:48:28 Disorder of nasal sinus 9379959 Active 2020 Other specifie d disorder s of nose and nasal sinuses; Note: Date Diagnose d: 06/08/20 21 10:31 AM (J34.89) Not Available [facility] 4 02:48:20 Disorder of the nose 15248442 Active 2020 Other specifie d disorder s of nose and nasal sinuses; Note: Date Diagnose d: 06/08/20 21 10:31 AM (J34.89) Not Available [facility] 4 02:48:21 Psoriasi s 7323857 Active 2019 Other psoriasi s; Note: Date Diagnose d: 0 11:50 AM (L40.8) Not Available [facility] 4 02:48:27 Sensorin eural hearing loss in left ear 96286613607 109 Active 2015 Sensorin eural hearing loss, unilater al, left ear, with restrict ed hearing on the contrala teral side; Note: Date Diagnose d: 06/01/20 16 2:10 PM (H90.A22 ) Not Available [facility] 4 02:48:29 Sensorin eural hearing loss of bilatera l ears 938591321 Active 2019 [facility] Bilatera lly; Note: Date Diagnose d: 4 4:08 PM (389.18) , Patient with bilatera l sensorin eural hearing loss affectin g all frequenc ie. Recommen d amplific ation, patient provided with a copy of todays audiogra m, medical clearanc e for hearing aids, and a list of [facility] hearing aid dispense rs. Follow up as needed ; Start Date : 03/12/20 14 Senso rineural hearing loss, bilatera l; Note: Date Diagnose d: 04/28/20 20 11:59 AM (H90.3) Sensor ineural hearing loss, bilatera l; Note: Date Diagnose d: 6 1:49 PM (H90.3) ; Start Date : 06/27/19 16 Not Available [facility] 4 02:48:24 Chronic serous otitis media of left ear 179651417 Active 2015 Chronic serous otitis media, left ear; Note: Date Diagnose d: 6 2:21 PM (H65.22) Not Available [facility] 4 02:48:28 Chronic serous otitis media 30064052 Active 2013 Chronic serous otitis media; Location [...] given severity of hearing loss Not Available [facility] 4 02:48:22 Mixed conducti ve and sensorin eural hearing loss of right ear 15406102184 105 Active 2015 Mixed conducti ve and [...] 16 2:10 PM (H90.A31 ) Not Available [facility] 4 01:08:24 Tobacco user 986717656 Completed 201701/24/2024 Tobacco use; Note: Date Diagnose d: 8 11:00 AM (Z72.0) JABARI DELVALLE MD [address] [place] [address], [place], [address] , [facility] - [facility] 4 16:10:42 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 Other specifie d superfic ial mycoses; Note: Date Diagnose d: 7 1:41 PM (B36.8) Not Available [facility] 4 02:48:28 Dysfunct ion of eustachi an tube 58553303 Active 2013 Eustachi an tube dysfunct ion; Note: Date Diagnose d: 4 4:08 PM (381.81) Not Available [facility] 4 02:48:25 Otalgia 58479106 Active 2014 Otalgia; Note: Date Diagnose d: 5 2:02 PM (388.70) Not Available [facility] 4 02:48:29 Referred otalgia 52196077 Active 2019 Otalgia secondar y to TMJ; Note: Date Diagnose d: 0 2:21 PM (388.72) Not Available [facility] 4 02:48:30 Impacted cerumen 65342371 Active 2014 Impacted cerumen; [facility] Treatmen t: marita hed problem (to examiner ): stable or improved Note: Date Diagnose d: 5 1:42 PM (380.4) Not Available [facility] 4 02:48:23 Itching of skin 809242405 Active 2019 Other pruritus ; Note: Date Diagnose d: 0 2:25 PM (L29.8) Not Available [facility] 4 02:48:21 Impacted cerumen in right ear 68766694362 01865 Active 2016 Impacted cerumen, right ear; Note: Date Diagnose d: 7 4:26 PM (H61.21) Not Available [facility] 4 02:48:26 Impacted cerumen of bilatera l ears 61853020164 49666 Active 2016 Impacted cerumen, bilatera l; Note: Date Diagnose d: 7 1:58 PM (H61.23) Not Available [facility] 4 02:48:29 Chronic serous otitis media of right ear 310094272 Active 2015 Chronic serous otitis media, right ear; Note: Date Diagnose d: 6 3:57 PM (H65.21) Not Available [facility] 4 02:48:25 Bilatera l disorder of Eustachi an tubes 98914787043 55984 Active 2015 Other specifie d disorder s of Eustachi an tube, bilatera l; Note: Date Diagnose d: 6 2:21 PM (H69.83) Not Available [facility] 4 02:48:27 Otalgia of right ear 2051908922 Active 2017 Otalgia, right ear; Note: Date Diagnose d: 8 10:49 AM (H92.01) Otalgi a, right ear; Note: Date Diagnose d: 5 2:03 PM (H92.01) [mapped from ICD9 code: 388.70] ; Start Date : 01/03/20 15 Not Available [facility] 4 02:48:22 Chronic serous otitis media 23106319 Active 2023 JABARI DELVALLE MD [address] [place] [address],[address], [address] , [facility] - [facility] 4 16:07:04 Problem Notes None recorded. Procedures Surgical History Date Name Laterality Status Provider Name and Address Organization Details Recorded Time 06/18/19 25 Air & Speech Audio with Tymps - 16298, 88884 & 20011 completed BALA WASSERMAN [address] [place] [address],[place] [address], [place], [address], [facility] - [facility] 06/18/2024 15:27:33 05/18/20 24 MYRINGOTOMY, BILATERAL, WITH TUBE INSERTION (SURG) completed Freedom Lozano [place] - [facility] 05/21/2024 11:01:39 01/24/20 24 Cerumen removal with microscope bilateral completed JABARI DELVALLE MD [address] [place] [address],[address], [address], [place] - [facility] 01/24/2024 16:10:57 11/24/19 24 Cerumen removal without microscope bilat completed ANTHONY APONTE PA-C [address] [place] [address],[place] [address], [place], [address], [place] - [facility] 11/24/2023 17:07:33 11/24/19 24 Tympanometry - 53889 completed Roxy Rico [place] - [facility] 11/24/2023 16:43:26 11/24/19 24 Air & Bone Audio - 48858 completed Roxy Rico [place] [facility] 11/24/2023 16:45:17 Myringotomy Tube Placement completed Amber Kebede [place] [facility] 01/24/2024 15:34:07 Imaging Results None recorded. [...] mg tablet 2020 active Medicati on ID: [id number] B rand Name: atorvast atin Sen d Method: E-Prescr ibed Sub s Allowed: subs OK Medic ationGen ericName : atorvast atin Not Available Not Available Not Available bupropion HCl SR 150 mg tablet,12 hr sustained -release 2020 active Medicati on ID: 372476 B rand Name: bupropio n HCl Send [...] topical cream 06/08 completed Medicati on ID: 225319 B rand Name: Lotrison e Send Method: E-Prescr ibed Sub s Allowed: subs OK Speci al Instruct ion: apply to external ear tid X 2 weeks Me dication GenericN emily: Lotrison e Medica tion ID: [id number] B ragan Name: Lotrison e Send Method: E-Prescr ibed Sub s Allowed: subs OK Speci al Instruct ion: apply to external ear tid X 2 weeks Me dication GenericN emily: Lotrison e Not Available Not Available Not Available clotrimaz ole-betam ethasone 1 %-0.05 % lotion 06/08 completed Medicati on ID: [id number] P lyndonbe d By Name: TONNY Tejeda nd Name: [...] topical cream 01/23 completed Medicati on ID: 935161 B ragan Name: betameth asone, augmente d Send Method: E-Prescr ibed Sub s Allowed: subs OK Medic ationGen ericName : betameth asone, augmente d Not Available Not Available Not Available Ciloxan 0.3 % eye drops 01/23 completed Medicati on ID: [id number] D uration Value: 3 Prescri bed By [...] layed release 2020 active Medicati on ID: 801509 B rand Name: aspirin Send Method: E-Prescr [...] applicato r 2020 active Medicati on ID: 655581 B rand Name: hydrocor tisone S end [...] mg capsule 2020 active Medicati on ID: 032582 B rand Name: tamsulos in Send Method: [...] right ear 01/23 completed Medicati on ID: 65163 Pr escribed By Name: TONNY Crisostomo nd Name: antipyri ne-benzo rohan Se nd Method: E-Prescr ibed Sub s Allowed: subs OK Speci al Instruct ion: as needed for discomfo rt [facility] : antipyri ne-benzo rohan Not Available Not Available Not Available hydrocort isone 1 % topical cream 2020 active Medicati on ID: 041137 B rand Name: hydrocor tisone S end [...] mg tablet 2020 active Medicati on ID: 343681 B rand Name: lisinopr il Send Method: [...] 454 Dura tion Value: 30 Brand Name: jacob lobato Send Method: E-Prescr ibed Sub s Allowed: [...] mg tablet 2020 active Medicati on ID: 077759 B rand Name: ebonyataolga parrish Send Method: E-Prescr ibed Sub s Allowed: subs OK Medic ationGen ericName : loratadi ne Not Available Not Available Not Available naproxen 500 mg tablet TAKE 1 TABLET BY MOUTH TWICE A DAY WITH FOOD OR MEALS FOR 14 DAYS 01/23 completed Not Available Not Available Not Available mometason e 0.1 % topical cream 06/08 completed Medicati on ID: [id number] P [place] By Name: TONNY Tejeda nd Name: mometaso ne Send Method: E-Prescr ibed Sub s Allowed: subs OK Speci al Instruct ion: Apply to external ear BID X 1 week as needed M edicatio nGeneric Name: mometaso ne Not Available Not [...] 24 hr 2020 active Medicati on ID: 110840 B rand Name: alfuzosi n Send Method: [...] mg capsule 2020 active Medicati on ID: 430687 B rand Name: pregabal in Send Method: E-Prescr ibed Sub s Allowed: subs OK Medic ationGen ericName : pregabal in Not Available Not Available Not Available antipyrin e-benzoca ine 3 drop into right ear as directed 06/08 completed Medicati on ID: 45087 Br and Name: antipyri ne-benzo rohan Se [...] mg capsule 2020 active Medicati on ID: 612975 B rand Name: Fish Oil Send Method: E-Prescr ibed Sub s Allowed: subs OK Medic ationGen ericName : Fish Oil Not Available Not Available Not Available hydrochlo rothiazid e 12.5 mg tablet TAKE 1 TABLET BY MOUTH EVERY DAY IN THE MORNING active Not Available Not Available No t Available Athlete's Foot (clotrima zole) 1 % topical cream 01/23 completed Medicati on ID: 675739 D uration Value: 14 Prescri bed By [...] mg tablet 2020 active Medicati on ID: 353525 B rand Name: Eliquis Send Method: E-Prescr ibed Sub s Allowed: subs OK Medic ationGen ericName : Eliquis Not Available Not Available Not Available Anoro Ellipta 62.5 mcg-25 mcg/actua tion powder for inhalatio n INHALE 1 PUFF DAILY active Not Available Not Available No t Available OxyContin 40 mg tablet,cr [facility] resistant ,extended release 06/01 completed Medicati on [...] Updated DateTime 08/24/2024 182.88 cm 38.7 kg/m2 414275.83 g Kayla Chacko [place] [facility] 08/24/2024 14:36:20 Date Recorded Body height Body mass index (BMI) Body weight Provider Name and Address Organization Details Last Updated DateTime 11/24/2023 182.88 cm 38 kg/m2 360686.86 g Barbie Conteh [place] [facility] 11/24/2023 16:09:06 Date Recorded Body height Body mass index (BMI) Body weight Provider Name and Address Organization Details Last Updated DateTime 01/24/2024 182.88 cm 38 kg/m2 172893.86 g Amber Kebede [facility] 01/24/2024 15:28:13 Social History Question Answer Notes LastModified by Organizat ion Details LastModified Time Tobacco Smoking Status Former Smoker JABARI DELVALLE MD [address] [place] [address], [address], [facility] - [facility] 01/24/2024 16:04:47 When Did You Quit Smoking? 1-5yearssinc elastcigaret te [email or web address] Information not available 01/24/2024 Sex: Unknown Functional Status None recorded. Mental Status None recorded. Family History Nothing Reported. Medical History Condition Response Depression Y Anxiety Y Sleep Disorder Y Past Encounters Encounter ID Performer Location Encounter Start Date Encounter Closed Date Diagnosis/Indication Diagnosis SNOMED-CT Code Diagnosis ICD10 Code Diagnosis Note [id number] ANTHONY APONTE PA-C [facility] [address] [address] 11/24/2023 15:43:29 11/24/2023 17:00:35 Bilateral disorder of Eustachian tubes 3052430206 096083 H69.83 Impacted c erumen of bilateral ears 8767836224 425722 H61.23 Otalgia of right ear 857 1848351 H92.01 Mixed cond uctive and sensorineural hearing loss of right ear 5137000257 9105 H90.A31 Profound mixed hearing loss and a Type C tympanogra m noted in the right ear. Severe to profound sensorineu ral hearing loss and a Type B tympanogra m with large volume noted in the left ear. Sensorineu ral hearing loss in left ear 8362316370 9109 H90.A22 Acute sero us otitis media of right ear 8185562918 583759 H65.01 [id number] JABARI DELVALLE MD [facility] [address] [address] 01/24/2024 15:09:42 01/24/2024 16:10:53 Bilateral disorder of Eustachian tubes 9030984581 665477 H69.83 Chronic se emmie otitis media 80189973 H65.21 Sensorineu ral hearing loss of bilateral ears 365842497 H90.3 Impacted c erumen of bilateral ears 9311651128 677056 H61.23 [id number] ROLANDO FREY PA-C [facility] [address] [address] 06/18/2024 15:02:45 06/18/2024 16:05:21 Bilateral disorder of Eustachian tubes 8230009963 818465 H69.93 Right Ear:Modera te to severe SNHL with excellent speech discrimina tion.Paten t tube.Left Ear:Modera te to severe SNHL with excellent speech discrimina tion.Paten t tube. Psoriasis 5525409 L40.9 [id number] JAH WILKERSON PA-C [facility] [address] [address] 08/24/2024 14:29:50 08/24/2024 14:55:40 Pain of temporomandibular joint 30164104 M26.629 Bilateral disorder of Eustachian tubes 1252919448 689639 H69.93 Health Concerns Section Related Observation LastModified by Organization Detai ls LastModified Time None Recorded Concern Status LastModified by Organization Details LastModified Time None Recorded Advance Directives Directive None Recorded Payers Insurance Date Sequence Insurance Name Policy Number Policy Simon Covered Member ID Simon Member ID Guarantor Name 08/24/2024 1 [facility] - DOS ON OR AFTER 2022 - ONE CARE (MEDICARE REPLACEMENT/ADV ANTAGE - HMO) Steven Subramanian [id number] Steven Subramanian 12/06/2023 1 [facility] [facility] [place] (MEDICARE REPLACEMENT/ADV ANTAGE - HMO) Steven Subramanian [id number] Steven Subramanian 01/24/2024 1 [facility] - DOS ON OR AFTER 2022 - MEDICARE [place]ANTAGE [place] (MEDICARE REPLACEMENT/ADV ANTAGE - PPO) Steven Subramanian [id number] Steven Subramanian Notes Date Note Type Note [...] ears with improvement. DMITRI LEE MD [address] [facility],[place] [address], [place], [address], [facility] 11/25/2023 17:06:21 01/24/2024 text/html 58-year-old male [...] patent. Patient has binaural amplification dispensed at [facility] audiology. JABARI DELVALLE MD [address] [facility],[address], [address], [facility] 01/24/2024 16:11:26 06/18/2024 text/html 59 year [...] not bring them today. Got them in [place] some years ago. He does not have tinnitus. MARY ELLEN FOOTE MD [facility], [place], [address], [facility] 06/18/2024 21:22:33 08/24/2024 text/html 59-year-old male with T tubes presents for reevaluation of right ear pain. He reports minimal improvement with topical DermOtic. This pain occurs 2-3 times weekly. He denies inciting events. He does have a history of arthritis. FAITH MEDINA MD [address] [place] [address], [address], [facility] - [facility] 08/26/2024 08:15:56
== END 2024-12-11 14:49 | disposition home or self-care (01) ==
LOC: HO.US 14:48
PROVIDERS: PCP Internal Medicine Geriatric Medicine; Visit Provider Nurse Practitioner
DX: R60.0 Localized edema (principal)
CPT/HCPCS: 93970

== ENCOUNTER → 2024-12-11 14:54 | Outpatient (BNV) | payer OTHER, SELFPAY | PROVIDERS: PCP Internal Medicine Geriatric Medicine; Visit Provider Radiology Diagnostic Radiology | DX: I82.532 Chronic embolism and thrombosis of left popliteal vein (principal) | CPT/HCPCS: 93970 ==

== ENCOUNTER 2024-12-27 06:14 | Outpatient (REF) | payer OTHER, SELFPAY ==
--- OUTSIDE RECORDS SUMMARY | 2024-08-02 10:45 | XMS_ITS ---
Author Organization [facility] Address [address] [place] [address] Care Team Providers Care Investment Banking Associate Name Role Phone Name Leland MIMS Primary Care Provider UnavailAlex Naqvimie Unavailable [phone] Nalini Dyer Unavailable [phone] Encounters Encounter Location Date Provider Diagnosis [address] [address] 08/02/2024 Nalini Dyer Plan Of Treatment Next Appt Details Provider Name:Nalini addison, 02/14/2025 02:00:00 PM, [address] [place] [address], [phone], Progress Notes * Jaren MCLAUGHLINsDOB: [birth year] (59 yo M)Acc No.[id number]:08/02/2024 Progress Note Patient: Kedar SALEEMsus Provider: Elmer Dyer DPM :1965 A ge:59 Y S ex:Male Date:08/02/2024 Address:[address] [place], [place] [id number] Pcp:Leland Brandon MD Subjective: * Chief Complaints: [...] 08/02/2024 Generated for Luisa john/Alexandrea/Clayton on: 0 12/27/2024 06:16 AM EDT
--- NOTE | ~2024-12-27 | FL_ITS ---
EXAMINATION: XR FLUOROSCOPY WITH IMAGES CLINICAL INFORMATION: Spinal stenosis lumbar region with neurogenic claudication COMPARISON: Lumbar x-rays 08/31/2024. TECHNIQUE: Fluoroscopy provided to: Dr. Mathis Fluoroscopy time: 0.3 minutes DAP: 0.964 mGycm2 Images: 4 FINDINGS: 4 fluoroscopic spot images obtained during lumbar pain management procedure. Please refer to the full operative report for details. FL/FL guidance in treatment room IMPRESSION: Fluoroscopic guidance. Electronically signed by: Partha Davis MD 12/27/2024 02:44 PM EDT
--- OUTSIDE RECORDS SUMMARY | 2024-12-27 06:16 | XMS_ITS | Clinical Summary ---
Author Organization 175 [facility] Address [address] [place] [address] Phone Care Team Providers Care Pl Sql Programmer Name Role Phone Name, Leland MIMS Primary Care Provider [phone] Allergies No known active allergies Medications DICLOFENAC [...] Annual BMP Blood Test abstracted Historical Provider HEALTH MAINTENANCE Final Result from Last 3 Months or Most Recently Relevant to Health Maintenance Insurance [employer] MEDICARE Member Subscriber Plan / Payer (Ef fective 2017-Present) Name:Steven Subramanian Relation to Subscriber:Self Name:Steven Subramanian Payer ID:[id number] Group ID:[id number] Type:Not on file Address: [facility] [address] [address] Sql Programmer Relationship Specialty Start Date End Date Name, MD Leland [address] [place], [place] PCP - General 01/06/15
--- OUTSIDE RECORDS SUMMARY | 2024-12-27 06:16 | XMS_ITS | Encounter Summary ---
Author Organization [email or web address] Address [address] [place] [address] Care Team Providers Care Studio Operation Engineer Name Role Phone Name, Leland MIMS Primary Care Provider [phone] Encounter Details Date Type Department Care Team (Late st Contact Info) Description 07/19/[address] [facility] MEDICINE [address] [place], [place] [phone] Name, MD Leland [address] [place], [place] [phone] Social History Tobacco Use Types Packs/Day Years [...] as of this encounter Plan of Treatment Not on file documented as of this encounter Procedures Procedure [...] documented as of this encounter Care Teams Studio Operation Engineer Relationship Specialty Start Date End Date Name, MD Leland [address] [place] [address] PCP - General Family Medicine 08/26/15 documented as of this encounter
--- OUTSIDE RECORDS SUMMARY | 2024-12-27 06:17 | XMS_ITS | Data Portability ---
Author Organization [place] [facility], Allergy Address [address] [facility] [address] [place] [address] Care Team Providers Care Meat Processor Name Role Phone NAME, MARIO Primary Care Provider [phone] Assessment Encounter Date Assessment Date Assessment LastModified [...] consider CT temporal bone given chronic symptoms. [email or web address] Not available 11/24/2023 17:08:14 01/24/2024 01/24/2024 Patient [...] Risks and benefits of surgery discussed using risk developer. Will begin the scheduling process and see him back at the time of surgery. [email or web address] Not available 01/24/2024 16:10:18 06/18/2024 06/18/2024 Patient presents postoperatively after insertion of T-tubes bilaterally 05/18. Has had a burning pain in the right ear. Physical exam reveals well placed and patent tubes without otorrhea. The skin of the right EAC is erythematous and dry though intact without edema. The conductive component of his hearing loss has resolved and he has a persistent wetadomq-wa-hicfvu neurosensory loss. Recommend updated technology; [facility] provider list provided with medical clearance [...] insertion (SURG) 2023 024 [email or web address] Not available 16:11:39 Imaging None recorded. Medication Orders fluocinolo ne acetonide oil 0.01 % ear drops [address] [facility]acy #[id number], [address] [place], [address], 5 15:56:32 Patient TargetsNo targets recorded. 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 Active 2013 Adhesive middle ear disease, unspecif ied as to involvem ent; Location : right CM S Risk: minimal risk CMS Treatmen t: self-cabrera ited or minor problem Conditio n: worse No te: Date Diagnose d: 4 4:36 PM (385.10) , Patient has a mild right anterior retracti on and left myringo- incudope xy Not Available [facility] 4 02:48:23 Chronic serous otitis media 02448439 Active 2013 Chronic serous otitis media; Location : right CM S Risk: minimal risk [facility] Treatmen t: self-cabrera ited or minor problem Conditio n: worse No te: Date Diagnose d: 4 4:36 PM (381.10) , Patient has right sided middle ear effusion . Patient also examined by Dr Delvalle who would not recommen d myringot elian with tube as patient would still require amplific ation despite procedur e given severity of hearing loss Not Available [facility] 4 02:48:22 Dysfunct ion of eustachi an tube 03714954 Active 2013 Eustachi an tube dysfunct ion; Note: Date Diagnose d: 4 4:08 PM (381.81) Not Available [facility] 4 02:48:25 Impacted cerumen 59713029 Active 2014 Impacted cerumen; [facility] Treatmen t: establis hed problem (to examiner ): stable or improved Note: Date Diagnose d: 5 1:42 PM (380.4) Not Available [facility] 4 02:48:23 Otalgia 99944510 Active 2014 Otalgia; Note: Date Diagnose d: 5 2:02 PM (388.70) Not Available [facility] 4 02:48:29 Tinnitus of left ear 84703915624 06 Active 2015 Tinnitus , left ear; Note: Date Diagnose d: 6 1:49 PM (H93.12) Not Available [facility] 4 02:48:21 Chronic serous otitis media of left ear 407170299 Active 2015 Chronic serous otitis media, left ear; Note: Date Diagnose d: 6 2:21 PM (H65.22) Not Available [facility] 4 02:48:28 Bilatera l disorder of Eustachi an tubes 78570843411 06330 Active 2015 Other specifie d disorder s of Eustachi an tube, bilatera l; Note: Date Diagnose d: 6 2:21 PM (H69.83) Not Available [facility] 4 02:48:27 Otorrhea of right ear 88974949429 33833 Active 2015 Otorrhea , right ear; Note: Date Diagnose d: 6 10:53 AM (H92.11) Not Available [facility] 4 02:48:27 Sensorin eural hearing loss 17411920 Active 2015 Sensorin eural hearing loss, unilater al, left ear, with unrestri cted hearing on the contrala teral side; Note: Date Diagnose d: 6 3:27 PM (H90.42) Not Available [facility] 4 02:48:28 Chronic serous otitis media of right ear 888726191 Active 2015 Chronic serous otitis media, right ear; Note: Date Diagnose d: 6 3:57 PM (H65.21) Not Available [facility] 4 02:48:25 Sensorin eural hearing loss in left ear 08139989863 109 Active 2015 Sensorin eural hearing loss, unilater al, left ear, with restrict ed hearing on the contrala teral side; Note: Date Diagnose d: 06/01/20 16 2:10 PM (H90.A22 ) Not Available [facility] 4 02:48:29 Mixed conducti ve and sensorin eural hearing loss of right ear 93490329536 105 Active 2015 Mixed conducti ve and [...] 16 2:10 PM (H90.A31 ) Not Available [facility] 4 01:08:24 Impacted cerumen in right ear 15383329766 95058 Active 2016 Impacted cerumen, right ear; Note: Date Diagnose d: 7 4:26 PM (H61.21) Not Available [facility] 4 02:48:26 Impacted cerumen of bilatera l ears 31541914370 91654 Active 2016 Impacted cerumen, bilatera l; Note: Date Diagnose d: 7 1:58 PM (H61.23) Not Available [facility] 4 02:48:29 Superfic ial mycosis 261844475 Active 2016 Other specifie d superfic ial mycoses; Note: Date Diagnose d: 7 1:41 PM (B36.8) Not Available [facility] 4 02:48:28 Tobacco user 581209546 Completed 201701/24/2024 Tobacco use; Note: Date Diagnose d: 8 11:00 AM (Z72.0) JABARI DELVALLE MD [address] [place] [address], [place], [address] , [facility] 4 16:10:42 Otalgia of right ear 4118790881 Active 2017 Otalgia, right ear; Note: Date Diagnose d: 8 10:49 AM (H92.01) Otalgi a, right ear; Note: Date Diagnose d: 5 2:03 PM (H92.01) [mapped from ICD9 code: 388.70] ; Start Date : 01/03/20 15 Not Available [facility] 4 02:48:22 History of tobacco use 17203779642 03 Active 2017 History of tobacco use; Note: Date Diagnose d: 11/17/2017 2:10 PM (V15.82) Not Available [facility] 4 02:48:23 Pain of temporom andibula r joint 21899496 Active 2017 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, unspecif ied side; Note: Changed from M26.62 to M26.629 (01/08/20 23 2:39 PM) , Date Diagnose d: 11/17/2017 2:11 PM (M26.62) Not Available [facility] 4 02:48:26 Otalgia of left ear 6983539903 Active 2017 Otalgia, left ear; Note: Date Diagnose d: 11/17/2017 2:11 PM (H92.02) Otalgi a, left ear; Note: Date Diagnose d: 6 1:23 PM (H92.02) ; Start Date : 06/27/19 16 Not Available [facility] 4 02:48:25 Psoriasi s 5145384 Active 2019 Other psoriasi s; Note: Date Diagnose d: 0 11:50 AM (L40.8) Not Available [facility] 4 02:48:27 Referred otalgia 85796968 Active 2019 Otalgia secondar y to TMJ; Note: Date Diagnose d: 0 2:21 PM (388.72) Not Available [facility] 4 02:48:30 Itching of skin 885680030 Active 2019 Other pruritus ; Note: Date Diagnose d: 0 2:25 PM (L29.8) Not Available [facility] 4 02:48:21 Sensorin eural hearing loss of bilatera l ears 241807441 Active 2019 SNHL Bilatera lly; Note: Date Diagnose d: 4 4:08 PM (389.18) , Patient with bilatera l sensorin eural hearing loss affectin g all frequenc ie. Recommen d amplific ation, patient provided with a copy of todays audiogra m, medical clearanc e for hearing aids, and a list of [facility] hearing aid dispense rs. Follow up as needed ; Start Date : 03/12/20 14 Senso rineural hearing loss, bilatera l; Note: Date Diagnose d: 04/28/20 20 11:59 AM (H90.3) Sensor ineural hearing loss, bilatera l; Note: Date Diagnose d: 6 1:49 PM (H90.3) ; Start Date : 06/27/19 16 Not Available [facility] 4 02:48:24 Disorder of nasal sinus 2034172 Active 2020 Other specifie d disorder s of nose and nasal sinuses; Note: Date Diagnose d: 06/08/20 21 10:31 AM (J34.89) Not Available [facility] 4 02:48:20 Disorder of the nose 53766652 Active 2020 Other specifie d disorder s of nose and nasal sinuses; Note: Date Diagnose d: 06/08/20 10:31 AM (J34.89) Not Available [facility] 4 02:48:21 Chronic serous otitis media 31332397 Active 2023 JABARI DELVALLE MD [address] [place] [address],[address], [address] , [facility] - [facility] 4 16:07:04 Problem Notes None recorded. Procedures Surgical History Date Name Laterality Status Provider Name and Address Organization Details Recorded Time 06/18/19 25 Air & Speech Audio with Tymps - 66492, 70556 & 46372 completed BALA WASSERMAN [address] [place] [address],[place] [address], [place], [address], [facility] [place] 06/18/2024 15:27:33 05/18/20 24 MYRINGOTOMY, BILATERAL, WITH TUBE INSERTION (SURG) completed Freedom Lozano [place] - [facility] 05/21/2024 11:01:39 01/24/20 24 Cerumen removal with microscope bilateral completed JABARI DELVALLE MD [address] [place] [address],[address], [address], [place] - [facility] 01/24/2024 16:10:57 11/24/19 24 Cerumen removal without microscope bilat completed ANTHONY APONTE PA-C [address] [place] [address],[place] [address], [place], [address], [place] [facility] 11/24/2023 17:07:33 11/24/19 24 Tympanometry - 98536 completed Roxy Rico [place] [facility] 11/24/2023 16:43:26 11/24/19 24 Air & Bone Audio - 23972 completed Roxy Rico [place] [facility] 11/24/2023 16:45:17 Myringotomy Tube Placement completed Amber Kebede [place] [facility] 01/24/2024 15:34:07 Imaging Results None recorded. [...] mg tablet 2020 active Medicati on ID: 915210 B rand Name: atorvast atin Sen d Method: E-Prescr ibed Sub s Allowed: subs OK Medic ationGen ericName : atorvast atin Not Available Not Available Not Available bupropion HCl SR 150 mg tablet,12 hr sustained -release 2020 active Medicati on ID: [id number] B rand Name: bupropio n HCl Send [...] topical cream 06/08 completed Medicati on ID: 091382 B rand Name: Lotrison e Send Method: E-Prescr ibed Sub s Allowed: subs OK Speci al Instruct ion: apply to external ear tid X 2 weeks Me dication GenericN emily: Lotrison e Medica tion ID: [id number] B pinon Name: Lotrison e Send Method: E-Prescr ibed Sub s Allowed: subs OK Speci al Instruct ion: apply to external ear tid X 2 weeks Me dication GenericN emily: Lotrison e Not Available Not Available Not Available clotrimaz ole-betam ethasone 1 %-0.05 % lotion 06/08 completed Medicati on ID: [id number] P lyndonbe d By Name: TONNY Tejeda [...] topical cream 01/23 completed Medicati on ID: 985907 B pinon Name: betameth asone, augmente d Send Method: E-Prescr ibed Sub s Allowed: subs OK Medic ationGen ericName : betameth asone, augmente d Not Available Not Available Not Available Ciloxan 0.3 % eye drops 01/23 completed Medicati on ID: [id number] D uration Value: 3 Prescri bed By [...] layed release 2020 active Medicati on ID: 588194 B rand Name: aspirin Send Method: E-Prescr [...] applicato r 2020 active Medicati on ID: 319902 B rand Name: hydrocor tisone S end [...] mg capsule 2020 active Medicati on ID: 350583 B rand Name: tamsulos in Send Method: [...] right ear 01/23 completed Medicati on ID: [id number] Pr escribed By Name: TONNY Crisostomo nd Name: antipyri ne-benzo rohan Se nd Method: E-Prescr ibed Sub s Allowed: subs OK Speci al Instruct ion: as needed for [facility]comfo [facility] antipyri ne-benzo rohan Not Available Not Available Not Available hydrocort isone 1 % topical cream 2020 active Medicati on ID: 198410 B rand Name: hydrocor tisone S end [...] mg tablet 2020 active Medicati on ID: 765897 B rand Name: lisinopr il Send Method: [...] mg tablet 2020 active Medicati on ID: 237967 B rand Name: ebonyataolga parrish Send Method: [...] topical cream 06/08 completed Medicati on ID: 327105 P houston daniels By Name: TONNY Tejeda [...] 24 hr 2020 active Medicati on ID: 520523 B rand Name: alfuzosi n Send Method: [...] mg capsule 2020 active Medicati on ID: 532418 B rand Name: pregabal in Send Method: E-Prescr ibed Sub s Allowed: subs OK Medic ationGen ericName : pregabal in Not Available Not Available Not Available antipyrin e-benzoca ine 3 drop into right ear as directed 06/08 completed Medicati on ID: 57481 Br and Name: antipyri ne-benzo rohan Se [...] mg capsule 2020 active Medicati on ID: 601458 B rand Name: Fish Oil Send Method: E-Prescr ibed Sub s Allowed: subs OK Medic ationGen ericName : Fish Oil Not Available Not Available Not Available hydrochlo rothiazid e 12.5 mg tablet TAKE 1 TABLET BY MOUTH EVERY DAY IN THE MORNING active Not Available Not Available No t Available Athlete's Foot (clotrima zole) 1 % topical cream 01/23 completed Medicati on ID: 226477 D uration Value: 14 Prescri bed By [...] mg tablet 2020 active Medicati on ID: 666629 B rand Name: Eliquis Send Method: E-Prescr ibed Sub s Allowed: subs OK Medic ationGen ericName : Eliquis Not Available Not Available Not Available Anoro Ellipta 62.5 mcg-25 mcg/actua tion powder for inhalatio n INHALE 1 PUFF DAILY active Not Available Not Available No t Available OxyContin 40 mg tablet,[facility] resistant ,extended release 06/01 completed Medicati on [...] Updated DateTime 08/24/2024 182.88 cm 38.7 kg/m2 063367.83 g Kayla Chacko [place] [facility] 08/24/2024 14:36:20 Date Recorded Body height Body mass index (BMI) Body weight Provider Name and Address Organization Details Last Updated DateTime 11/24/2023 182.88 cm 38 kg/m2 859846.86 g Barbie Conteh [place] [facility] 11/24/2023 16:09:06 Date Recorded Body height Body mass index (BMI) Body weight Provider Name and Address Organization Details Last Updated DateTime 01/24/2024 182.88 cm 38 kg/m2 961222.86 g Amber Kebede [facility] 01/24/2024 15:28:13 Social History Question Answer Notes LastModified by Organizat ion Details LastModified Time Tobacco Smoking Status Former Smoker JABARI DELVALLE MD [address] [place] [address], [address], [facility] - [facility] 01/24/2024 16:04:47 When Did You Quit [...] Note [id number] ANTHONY APONTE PA-C [facility] [address] [address] 11/24/2023 15:43:29 11/24/2023 17:00:35 Bilateral disorder of Eustachian tubes 1572741286 182165 H69.83 Impacted c erumen of bilateral ears 1329407826 530013 H61.23 Otalgia of right ear 612 1133234 H92.01 Mixed cond uctive and sensorineural hearing loss of right ear 6212640881 9105 H90.A31 Profound mixed hearing loss and a Type C tympanogra m noted in the right ear. Severe to profound sensorineu ral hearing loss and a Type B tympanogra m with large volume noted in the left ear. Sensorineu ral hearing loss in left ear 6217565691 9109 H90.A22 Acute sero us otitis media of right ear 0885719636 071232 H65.01 [id number] JABARI DELVALLE MD [facility] [address] [address] 01/24/2024 15:09:42 01/24/2024 16:10:53 Bilateral disorder of Eustachian tubes 6408229573 540268 H69.83 Chronic se emmie otitis media 02516222 H65.21 Sensorineu ral hearing loss of bilateral ears 148921013 H90.3 Impacted c erumen of bilateral ears 7127770328 202629 H61.23 [id number] ROLANDO FREY PA-C [facility] [address] [address] 06/18/2024 15:02:45 06/18/2024 16:05:21 Bilateral disorder of Eustachian tubes 3325056647 561977 H69.93 Right Ear:Modera te to severe SNHL with excellent speech discrimina tion.Paten t tube.Left Ear:Modera te to severe SNHL with excellent speech discrimina tion.Paten t tube. Psoriasis 2219809 L40.9 [id number] JAH WILKERSON PA-C [facility] [address] [address] 08/24/2024 14:29:50 08/24/2024 14:55:40 Pain of temporomandibular joint 84607186 M26.629 Bilateral disorder of Eustachian tubes 7731439303 343115 H69.93 Health Concerns Section Related Observation LastModified by Organization Detai ls LastModified Time None Recorded Concern Status LastModified by Organization Details LastModified Time None Recorded Advance Directives Directive None Recorded Payers Insurance Date Sequence Insurance Name Policy Number Policy Simon Covered Member ID Simon Member ID Guarantor Name 08/24/2024 1 [facility] (MEDICARE REPLACEMENT/ADV ANTAGE - HMO) Steven Subramanian [id number] Steven Subramanian 12/06/2023 1 [facility] [place] (MEDICARE REPLAC[place]/ADV ANTAGE - HMO) Steven Subramanian [id number] Steven Subramanian 01/24/2024 1 [facility] AFTER [facility] - MEDICARE [place]AGE [place] (MEDICARE REPLACEMENT/ADV ANTAGE - PPO) Steven Subramanian [id number] Steven Subramanian Notes Date Note Type Note [...] ears with improvement. DMITRI LEE MD [address] [facility],[place] [address], [place], [address], [facility] 11/25/2023 17:06:21 01/24/2024 text/html 58-year-old male [...] patent. Patient has binaural amplification dispensed at [facility] audiology. JABARI DELVALLE MD [address] [facility],[address], [address], [facility] 01/24/2024 16:11:26 06/18/2024 text/html 59 year [...] not bring them today. Got them in [place] some years ago. He does not have tinnitus. MARY ELLEN FOOTE MD [address] [facility] [address], [place], [address], [facility] 06/18/2024 21:22:33 08/24/2024 text/html 59-year-old male with T tubes presents for reevaluation of right ear pain. He reports minimal improvement with topical DermOtic. This pain occurs 2-3 times weekly. He denies inciting events. He does have a history of arthritis. FAITH MEDINA MD [address] [place] [address], [address], [facility] - [facility] 08/26/2024 08:15:56
--- OUTSIDE RECORDS SUMMARY | 2024-12-27 06:17 | XMS_ITS | Referral Summary ---
Author Organization [facility] Address [address] [place] [address] Care Team Providers Care Reagent Tender Name Role Phone No, Pcp Primary [...] Treatment Not on file Insurance Care Teams Reagent Tender Relationship Specialty Start Date End Date No, Pcp HIREN PCP - General 01/29/22
== END 2024-12-27 06:15 | disposition home or self-care (01) ==
LOC: CF 06:14
PROVIDERS: Visit Provider Internal Medicine
DX: M48.062 Spinal stenosis, lumbar region with neurogenic claudication (principal); M54.16 Radiculopathy, lumbar region
CPT/HCPCS: 64483; J1100; J2003; Q9967

== ENCOUNTER 2024-12-27 11:16 | Outpatient (AMB) | payer OTHER, SELFPAY ==
[2024-12-27 11:17] VITALS: BP 128/69; PULSE 83; RESP 16; O2SAT 95; BMI 39.3
--- NOTE | 2024-12-27 11:17 | A.OFFVIS_ITS ---
Vital Signs 12/27/24 11:17 12/27/24 11:45 Height 6 ft 6 ft Weight 290 lb 290 lb BMI 39.3 39.3 BP 128/69 156/83 H Blood Pressure Location Lt brachial Lt radial Position Sitting Sitting Respiration 16 16 Pulse 83 72 Pulse Source Pulse Oximeter Pulse Oximeter Pulse Oximetry (%) 95 96 Oxygen Delivery Method Room Air Room Air Intake Visit Reasons: BILATERAL L4, L5 TFESI Allergies No Known Allergies Allergy (Verified 11/08/24 10:56) HPI HPI BILATERAL L4, L5 TFESI: Details: Patient presents for scheduled procedure. Denies any recent cough, cold, infection, fever or other significant changes in medical history since last office visit. [facility] Medical History (Updated 12/27/24 @ 13:33 by Chance Mathis MD) Benign essential tremor COPD (chronic obstructive pulmonary disease) Dyspnea Nocturnal hypoxia Hyperlipidemia History of recurrent deep vein thrombosis (DVT) Chronic back pain Methadone maintenance therapy patient REAGAN (obstructive sleep apnea) Personal history of nicotine dependence Thrombosed external hemorrhoid Morbid obesity Hypertension Chronic pulmonary embolism Current use of anticoagulant therapy Surgical History Hx of colonoscopy History of excision of mass Family History Father History of prostate cancer Social History Household Members: Friend(s) Alcohol intake: former Year quit: 2023 Patient Tobacco Use Status: Former Tobacco user Tobacco use type: Cigarette Years Smoked: onset 14, 1/2-1ppd x 42yrs, 30pyh Current occupational status: disabled Physical Exam Vital Signs: Last Vital Signs Pulse 72 12/27/24 11:45 Resp 16 12/27/24 11:45 BP 156/83 H 12/27/24 11:45 Pulse Ox 96 12/27/24 11:45 Oxygen Delivery Method Room Air 12/27/24 11:45 BMI result Body Mass Index 39.3 Office Procedures Details: Transforaminal epidural steroid injection, bilateral L4-5 After obtaining written consent, pre-procedure blood pressure and heart rate were stable and recorded in the nursing record. The patient was placed in the prone position on the fluoroscopy table. The lumbosacral area was prepped with chloraprep, allowed to dry and draped in sterile fashion. Using fluoroscopy, the skin overlying our target was an esthetized with 0.5% lidocaine. A 22 gauge 3.5 inch spinal needle was advanced to the safe triangle in the upper pole of the right L4 foramen. No paresthesias were elicited with needle placement and aspiration was negative for blood and CSF. Correct needle position was confirmed with approximately 1 ml contrast dye (Omnipaque 180 mg/ml) injected under real-time fluoroscopy. No evidence of vascular or intrathecal uptake was seen and there was both epidural and peripheral spread of the contrast agent. 10 mg dexamethasone plus 1 ml containing 0.5% lidocaine was slowly injected. The needle was flushed and removed. The same procedure was repeated for the left side. The skin was cleansed and a sterile bandages were applied. The patient tolerated the procedure well and no complications were encountered. Following the procedure the patient's vital signs were stable. The patient was discharged home in good condition with post-procedural instructions. Time Out: Immediately prior to the procedure, the following was verbally confirmed that there is a signed consent form and that the correct patient, planned procedure, site and side are consistent with documentation and that necessary equipment and/or blood products are available prior to the start of the case. Complications: none EBL: <5 cc 29862 - Lumbar/Sacral (Bilateral) Procedure code (CPT) selection complete Assessment & Plan Assessment & Plan (1) Lumbar radicular pain: Code(s): M54.16 - Radiculopathy, lumbar region Category: Medical Plan Patient is status post bilateral L4-5 TFESI. Patient tolerated procedure well and was discharged home in stable condition with discharge instructions. All questions were answered. We will follow-up via telephone or in clinic to assess response to therapy. A follow-up appointment was made during today's visit. Orders: Orders FL guidance in treatment room Today Landy Payne APRN, STORE WAREHOUSE ASSOCIATE M48.062 - Spinal stenosis, lumbar region with neurogenic claudication AMB Transforaminal Epidural Steroid Injection Today Chance Mathis MD M54.16 - Radiculopathy, lumbar region Coding Level of Care Code Procedure Only Diagnoses Lumbar radicular pain M54.16 CPT Codes Transforaminal Epidural Steroid Inj - TESI 3: 14770 - Lumbar/Sacral ([id number])
[2024-12-27 11:45] VITALS: BP 156/83; PULSE 72; RESP 16; O2SAT 96; BMI 39.3
== END 2024-12-27 12:14 | disposition home or self-care (01) ==
LOC: HO.PMCPRC 11:16
PROVIDERS: PCP Internal Medicine Geriatric Medicine; Visit Provider Internal Medicine
DX: M54.16 Radiculopathy, lumbar region (principal)
CPT/HCPCS: 64483

== ENCOUNTER 2025-01-17 13:39 | Outpatient (AMB) | payer OTHER, SELFPAY ==
--- OUTSIDE RECORDS SUMMARY | 2024-08-02 10:45 | XMS_ITS ---
Author Organization [facility] Address [address] [place] [address] Care Team Providers Care Geothermal Hvac Technician Name Role Phone Name Leland MIMS Primary Care Provider UnavailAlex Naqvimie Unavailable [phone] Nalini Dyer Unavailable [phone] Encounters Encounter Location Date Provider Diagnosis [address] [address] 08/02/2024 Nalini Dyer Plan Of Treatment Next Appt Details Provider Name:Nalini addison, 02/14/2025 02:00:00 PM, [address] [place] [address], [phone], Progress Notes * Jaren MCLAUGHLINsDOB: 3 (59 yo M)Acc No.[id number]:08/02/2024 Progress Note Patient: Kedar SALEEMsus Provider: Elmer Dyer DPM :1965 A ge:59 Y S ex:Male Date:08/02/2024 Address:[address] [place], [place] [id number] Pcp:Leland Brandon MD Subjective: * Chief Complaints: [...] 0 08/02/2024 Generated for Luisa john/Alexandrea/Clayton on: 0 01/17/2025 01:41 PM EDT
--- NOTE | 2025-01-17 13:41 | A.OFFVIS_ITS ---
Vital Signs 01/17/25 13:46 Height 6 ft Weight 285 lb BMI 38.6 BP 152/70 H Blood Pressure Location Rt brachial Position Sitting Pulse 77 Pulse Source Pulse Oximeter Pulse Oximetry (%) 98 Oxygen Delivery Method Room Air Intake Visit Reasons: BILATERAL L4, L5 TFESI Intake Note: Pain today 02/20 President Celebrity Acquistion Required: Yes President Celebrity Acquistion Language: Seo Analyst Services: President Celebrity Acquistion Present President Celebrity Acquistion Name: James # [id number] Accompanied by: Self / Same As Patient Allergies No Known Allergies Allergy (Verified 01/17/25 13:51) HPI Comments Details: The patient is a 59-year-old male presenting for follow up status post recent bilateral L4-L5 TFESI injection on 12/27/[address] Mathis. The patient reports low back and bilateral leg pain has partially improved, he denies any signficant back pain today. However, he is experiencing moderately severe left lateral hip pain and left buttock pain extending into his left hip area, which has persisted for seven to eight months. The pain is described as strong and persistent, with no significant improvement despite previous interventions. He avoids sleeping on left side. Getting up from chair increases his symptoms. Previous imaging showed mild arthritis diagnosed in both hips and SI joints. The left hip pain is exacerbated by movement and has been a source of significant discomfort. Denies any recent trauma, injury or falls. Tylenol and heat therapy have been ineffective. Patient is requesting topical medication for symptoms relief and is interested in receiving bursa and SI joint injections as next steps. Denies any recent cough, cold, infection, fever or any significant changes in medical history since last office visit. Past Procedures: 12/27/24: Bilateral L4-L5 TFESI-60% pain relief PRIOR: The patient is a 59-year-old male presenting with chronic back pain. He has suffered from back pain for around 30 years, attributed to degenerative disc disease, lumbar spinal stenosis, and a herniated disc at L4-L5. He has been evaluated by [facility], and decompression surgery was discussed, but he opted to try injections first. His pain is multifactorial, involving disc degene ration, arthritis, and spinal stenosis, with pinched nerve roots and grade 1 slippage at L4-L5. The pain radiates from the middle of the back to both legs, to anterior thighs and shins and lateral lower legs. He also has foot ulcers under care of [facility] and presents with natalia wrapped bilateral lower extremities. Pain is constant with movements such as bending, extending, walking, and sitting. [facility] 10/26/24 Francisco Velez PA-C Mr colindres is here in follow-up. Please refer to my last note for the specifics of his problem. He came back today after starting physical therapy, but more less it did not help all that much. Today's visit was done with the help of my surgical attendant and director of online education [place]. The patient describes ongoing issues with his back pain which he has had for 30 years after he fell out of a 3rd or building. He also has the bilateral leg pain with standing and walking. We had previously reviewed his films and he has a grade 1 spondylolisthesis at L4-5 with moderate to severe stenosis at that level. He also has moderate stenosis at L3-4. We had a lengthy discussion about what surgery would entail. Specifically the goals of surgery at L4-5 with a spondylolisthesis would be to treat the back pain and the leg pain. We did admonished him however the success rate for the back pain is 60-70%, and given that he is had the pain now for 30 years too hard to predict if this would completely go away after surgery, in fact we would likely predict it would not, but it may get slightly better. With regard to the leg pain, if he was not interested in treating the back pain and was accepting of that as a lifelong issue that may just be with him, a simple decompression could be done at L4-5. That would address the leg pain but again would not address the back pain. For now, he does not want to consider surgery at all. He is interested in seeing if there any injections that can help him so I will send him back to the pain management center here at [place] who originally sent him to us to be re- evaluated. PRIOR: The patient is a 59-year-old male with complex medical history, including recent hospitalization for DVT, left lower extremity cellulitis and sepsis, presenting with chronic low back pain with worsening radiculopathy for the past five months. Denies any recent injury, trauma, or falls. He describes the pain as severe and stabbing, originating in the lower back and radiating down the left leg, affecting both anterior and posterior aspects. Reports chronic venous insufficiency with previous history of DVTs and PEs and currently on Xarelto per patient. Numbness, tingling, and urinary incontinence accompany the pain, causing significant limitations to mobility, as he is unable to walk more than two minutes without a break. The patient is currently managing the condition with Tylenol and gabapentin. He is on methadone therapy for opioid dependence. Reports increased left leg pain due to an ongoing edema and pain with healing ulcers in anterior shins bilaterally without pathological discharge or tenderness. Currently, he is unable to pursue formal physical therapy due to significant low back pain with leg pain which limits his walking capacity and movements. Lumbar spine MRI was completed last month, noted for multilevel lumbar spondylosis resulting in grade 1 anterolisthesis L4-5 and multilevel central spinal canal and neuroforamina stenosis more conspicuous at L4-5 and to a lesser extent L2-3, L3-4 and L5-S1 levels. Epidural lipomatosis from L3 to sacrum. Patient denies previous spine surgical surgery or injections or recent physical or chiropractic therapy. - Onset: Several years ago, worsening in the past five months. - Quality: Stabbing, shooting, aching, numbness, tingling, burning. - Primary location: Low back. - Radiation: Down the entire left leg, affecting anterior, lateral, and posterior aspects. Intermittently affecting right leg. - Exacerbating Factors: Walking >2 min, bending forward or backward, climbing stairs - Alleviating Factors: Medications (partial relief). - Impact: Unable to perform daily activities without interruption; the significant impact on mobility and function, and sleep. - Affect: Pain causes significant limitations in mobility, daily activities and sleep. - Analgesia: Patient currently on Tylenol, gabapentin, tizanidine; current use of methadone for opioid dependence. - Adverse Effects: Reports difficulty in daily function, no specific side effects detailed from medications. - Activities of Daily Living: Severely limited; cannot walk more than two minutes without stopping. - Aberrant Drug-Related Behaviors: History of opioid use, currently managed with methadone prescribed through a program. [facility] Medical History Benign essential tremor COPD (chronic obstructive pulmonary disease) Dyspnea Nocturnal hypoxia Hyperlipidemia History of recurrent deep vein thrombosis (DVT) Chronic back pain Methadone maintenance therapy patient REAGAN (obstructive sleep apnea) Personal history of nicotine dependence Thrombosed external hemorrhoid Morbid obesity Hypertension Chronic pulmonary embolism Current use of anticoagulant therapy Surgical History Hx of colonoscopy History of excision of mass Family History Father History of prostate cancer Social History Household Members: Friend(s) Alcohol intake: former Year quit: 2023 Patient Tobacco Use Status: Former Tobacco user Tobacco use type: Cigarette Years Smoked: onset 14, 1/2-1ppd x 42yrs, 30pyh Current occupational status: disabled Review of Systems Const All systems reviewed & are unremarkable except as noted in HPI and below Physical Exam Vital Signs: Last Vital Signs Pulse 77 01/17/25 13:46 BP 152/70 H 01/17/25 13:46 Pulse Ox 98 01/17/25 13:46 Oxygen Delivery Method Room Air 01/17/25 13:46 BMI result Body Mass Index 38.6 General: Appears afebrile. Alert and oriented. Mood and affect appropriate. Follows and participates in conversation appropriately. Respiratory effort is unlabored. No cough. Reports dyspnea on exertion. Able to transition from sit to stand with assistance. Uses cane with ambulation. Ambulates with antalgic gait with limping. General: Yes no CVA tenderness Back/Spine/Pelvis Other: Limited lumbar ROM due to pain. Lumbar flexion, bending and extension reproduce moderate pain. Painful facet loading bilaterally. Patient experiences left buttock and left hip pain with prolonged sitting or getting up from sitting position. Localized TTP to left SIJ and left GTB areas. Strength 5/5 right and 4/5 left hip flexion due to pain. TTP over midline and paraspinals L3-S1. DTR intact, diminished bilaterally. Valsalva maneuvr is negative. Back: no CVA tenderness Cervical Spine: loss of normal cervical lordosis, cervical muscular tenderness, pain with cervical ROM and No Cervical spine tenderness Thoracic/Lumbar Spine: thoracic and lumbar spine normal to inspection, No Thoracic/lumbar spine scar(s), Lasegue's sign positive bilateral and diffuse, pain with thoraco-lumbar ROM, paraspinal muscle tenderness, thoraco-lumbar ROM limited, No thoracic spinal tenderness and lumbar spinal tenderness (L3-S1) Pelvis: buttock tenderness on the left Sacroiliac joints: on the right nontender and on the left (+Judah's, +Stinchfield, +Pelvic compression) tender to palpation Results Reviewed Results Reviewed: MR LUMBAR SPINE WITHOUT CONTRAST 07/16/24 CLINICAL INFORMATION: Severe low back pain. Neurogenic claudication. COMPARISON: None available. TECHNIQUE: MRI of the lumbar spine was obtained using routine sequences without contrast. FINDINGS: Last rib-bearing vertebra labeled T12. No bone marrow STIR signal abnormality. Multilevel marginal osteophyte formation and disc desiccation from T12-L1 to L5-S1. Grade 1 anterolisthesis L4-5. There is a 12 mm intrinsic hyperintense T1 and T2 bone lesion on the posterior right L1 vertebra likely intraosseous hemangioma. The conus medullaris ends at superior endplate of L1 with normal signal. Prominent epidural fat in a circumferential fashion from L3 to the sacrum. T12-L1: Facet joint hypertrophy as well as ligamentum flavum. Broad-based disc bulging. Bilateral neuroforamina narrowing. No central spinal canal stenosis. L1-2: Broad-based disc bulging. Facet joint and ligamentum flavum hypertrophy. Reduced AP diameter of the thecal sac and the neural foramina likely encroaching the exiting nerve roots. L2-3: Broad-based disc bulging. Facet joint and ligamentum flavum hypertrophy. Reduced AP diameter of the thecal sac with the CSF effacement. Bilateral neuroforamina stenosis likely encroaching the neural elements both thecal sac and the exiting nerve roots. L3-4: Broad-based disc bulging. Facet joint and ligamentum flavum hypertrophy. CSF effacement of the thecal sac. Bilateral neuroforamina stenosis encroaching posterior compressing the exiting nerve roots and encroaching the neural elements of the thecal sac. L4-5: Grade 1 anterolisthesis, broad-based disc bulging, facet joint and ligamentum flavum hypertrophy resulting in CSF effacement of the thecal sac and bilateral neuroforamina stenosis, right greater than the left compressing the neural elements both thecal sac and exiting nerve roots. L5-S1: Prominent epidural fat. Broad-based disc bulging. Facet joint and ligamentum flavum hypertrophy. Reduced AP diameter of the thecal sac and the neural foramina likely encroaching the neural elements. Asymmetric volume loss of the right psoas muscle. Probable cystic lesions in the parapelvic left kidney. IMPRESSION: Multilevel lumbar spondylosis resulting in grade 1 anterolisthesis L4-5 and multilevel central spinal canal and neuroforamina stenosis more conspicuous at L4-5 and to a lesser extent L2-3, L3-4 and L5-S1 levels. Epidural lipomatosis from L3 to sacrum. XR hip RAINE min 3V w/wo pel on 06/19/24 CLINICAL HISTORY: PAIN Exam: AP pelvis with AP and frog-leg lateral views of both hips. Comparison: Right hip radiographs December 14, 2023. Findings: Bony alignment of the hip joints is anatomic. No acute fractures are identified. 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 No erosions. Sacroiliac joints and pubic symphysis are unremarkable. Impression: No fracture. XR LUMBAR SPINE 4 OR MORE VIEWS 08/31/24 HISTORY: M48.062 - Spinal stenosis, lumbar region with neurogenic claudication COMPARISON: Comparison is made with the prior examination dated 06/18/2024. FINDINGS: AP, and neutral, flexion, and extension lateral views of the lumbar spine are submitted. Osseous mineralization is normal. There is mild rotatory dextroscoliosis. The vertebral bodies maintain normal height without evidence of fracture. There is grade I spondylolisthesis of L4 on L5. There is no significant change in flexion or extension. There is mild to moderate degenerative disc disease with disc space narrowing and osteophyte formation. There is osteoarthritis of the lower lumbar facet joints. And IVC filter is seen in place. IMPRESSION: Mild rotatory dextroscoliosis. Grade I spondylolisthesis of L4 on L5 without significant change in flexion or extension. Mild to moderate degenerative disc disease. Assessment & Plan Assessment & Plan (1) Chronic back pain: Code(s): M54.9 - Dorsalgia, unspecified; G89.29 - Other chronic pain Category: Medical (2) Greater trochanteric bursitis of left hip: Code(s): M70.62 - Trochanteric bursitis, left hip Category: Medical (3) Lumbar degenerative disc disease: Code(s): M51.369 - Other intervertebral disc degeneration, lumbar region without mention of lumbar back pain or lower extremity pain Category: Medical (4) Lumbosacral spondylosis: Code(s): M47.817 - Spondylosis without myelopathy or radiculopathy, lumbosacral region Category: Medical (5) Lumbar radicular pain: Code(s): M54.16 - Radiculopathy, lumbar region Category: Medical (6) Sacroiliac joint pain: Code(s): M53.3 - Sacrococcygeal disorders, not elsewhere classified Category: Medical Plan The plan includes scheduling a left therapeutic greater trochanteric bursa and left sacroiliac joint injections with local and fluoroscopy to address the persistent pain in the left buttock and hip. Expectations, risks and benefits were reviewed. Patient is aware he will be contacted to schedule this procedure. Additionally, diclofenac sodium 1% gel will be prescribed for topical pain relief, and the patient is advised to continue using Tylenol as needed. Follow-up with a Neurosurgeon is recommended if there is no significant improvement in back and leg pain. Patient reports partial improvement status post recent bilateral L4-L5 TFESI, he is hesitant towards back surgery at this time. All questions and concerns have been answered and patient agreed with the plan. Follow up after injections and sooner as needed. Patient was informed and verbally consented to the use of an ambient scribe for clinic note documentation during this visit. Medications: New diclofenac sodium 1% (Arthritis Pain (diclofenac)) 4 grams topical QID 100 grams 4RF pain G89.29 - Other chronic pain, M54.9 - Dorsalgia, unspecified, M70.62 - Trochanteric bursitis, left hip Coding Level of Care Code Est Pt Level 4 (86059) Complex EM visit Add On G2211 Diagnoses Chronic back pain M54.9; G89.29 Greater trochanteric bursitis of left hip M70.62 Lumbar degenerative disc disease M51.369 Lumbosacral spondylosis M47.817 Lumbar radicular pain M54.16 Sacroiliac joint pain M53.3
--- OUTSIDE RECORDS SUMMARY | 2025-01-17 13:42 | XMS_ITS | Referral Summary ---
Author Organization [facility] Address [address] [place] [address] Care Team Providers Care Junior Loan Processor Name Role Phone No, Pcp Primary Care [...] Treatment Not on file Insurance Care Teams Junior Loan Processor Relationship Specialty Start Date End Date No, Pcp HIREN PCP - General 01/29/22
--- OUTSIDE RECORDS SUMMARY | 2025-01-17 13:42 | XMS_ITS | Clinical Summary ---
Author Organization [facility] Address [address] [place] [address] Phone Care Team Providers Care Carrier Blower Name Role Phone Name, Leland [facility] Primary Care Provider [phone] Allergies No known active allergies Medications DICLOFENAC [...] Influencers of Health Screening 03/16/2024 Depression Screening 06/13/2024 Influenza Vaccine (#1) 2025 , 04/05/2023, 03/24/2021, [...] Most Recently Relevant to Health Maintenance [place] [address] [place] [address] MEDICARE Member Subscriber Plan / Payer (Ef fective 2017-Present) Name:Steven Subramanian Relation to Subscriber:Self Name:Steven Subramanian Payer ID:[id number] Group ID:[id number] Type:Not on file Address: [facility] [address] [place] [address] Care Teams Carrier Blower Relationship Specialty Start Date End Date Name, MD Leland [address] [place], [place] PCP - General 01/06/15
[2025-01-17 13:46] VITALS: BP 152/70; PULSE 77; O2SAT 98; BMI 38.6
== END 2025-01-17 14:04 | disposition home or self-care (01) ==
PROVIDERS: PCP Internal Medicine Geriatric Medicine; Visit Provider Nurse Practitioner Family
DX: M54.9 Dorsalgia, unspecified (principal); G89.29 Other chronic pain; M70.62 Trochanteric bursitis, left hip; M51.369 Other intervertebral disc degeneration, lumbar region without mention of lumbar back pain or lower extremity pain; M47.817 Spondylosis without myelopathy or radiculopathy, lumbosacral region; M54.16 Radiculopathy, lumbar region; M53.3 Sacrococcygeal disorders, not elsewhere classified
CPT/HCPCS: 99214; G2211

== ENCOUNTER → 2025-01-17 13:39 | Outpatient (BNVA) | payer OTHER, SELFPAY | PROVIDERS: PCP Internal Medicine Geriatric Medicine; Visit Provider Nurse Practitioner Family | DX: M70.62 Trochanteric bursitis, left hip (principal); M53.3 Sacrococcygeal disorders, not elsewhere classified; M54.16 Radiculopathy, lumbar region; M47.817 Spondylosis without myelopathy or radiculopathy, lumbosacral region; M51.369 Other intervertebral disc degeneration, lumbar region without mention of lumbar back pain or lower extremity pain; M54.9 Dorsalgia, unspecified; G89.29 Other chronic pain | CPT/HCPCS: 99212 ==

== ENCOUNTER 2025-02-15 15:31 | Outpatient (REF) | payer OTHER, SELFPAY ==
--- OUTSIDE RECORDS SUMMARY | 2024-08-02 10:45 | XMS_ITS ---
Author Organization [facility] Address [address] [place] [address] Care Team Providers Care Source Inspector Name Role Phone Name Leland MIMS Primary Care Provider UnavailAlex Naqvimie Unavailable [phone] Nalini Dyer Unavailable [phone] Encounters Encounter Location Date Provider Diagnosis [address] [address] 08/02/2024 Nalini Dyer Plan Of Treatment Next Appt Details Provider Name:Nalini addison, 04/22/2025 03:00:00 PM, [address] [place] [address], [phone], Progress Notes * Jaren MCLAUGHLINsDOB: [birth year] (59 yo M)Acc No.[id number]:08/02/2024 Progress Note Patient: Kedar SALEEMsus Provider: Elmer Dyer DPM :1965 A ge:59 Y S ex:Male Date:08/02/2024 Address:[address] [place], [place] [id number] Pcp:Leland Brandon MD Subjective: * Chief Complaints: [...] 08/02/2024 Generated for Luisa john/Alexandrea/Clayton on: 0 02/15/2025 02:43 PM EDT
--- OUTSIDE RECORDS SUMMARY | 2025-02-14 10:00 | XMS_ITS ---
Author Organization [facility] Address [address] [place] [address] Care Team Providers Care Cash Analyst Name Role Phone Name Leland MIMS Primary Care Provider Unavailabl e Luis, Yaquelin Unavailable [phone] Nalini Dyer Unavailable [phone] Allergies No Known Allergies REASON FOR VISIT Painful nail(s) aggravated by shoes causing difficulty standing/walking Medications Medication SIG (Take, Route, Frequency, Duration) Notes Start Date End Date Status Acetaminophen 500 MG 1 tablet as needed Orally every 6 hrs; Duration: 14 days 01/28/2023 Not-Taking Medrol juan j 4mg as directed orally a s directed; Duration: 6 days 05/20/2022 Not-T aking Piroxicam 20 MG TAKE 1 CAPSULE BY [facility] EVERY DAY WITH FOOD FOR 30 DAYS; Duration: 30 Not-Taking Eliquis 5 MG as directed Orally Not-Taking Naproxen 500 MG 1 tablet Orally WITH FOOD Twice a day; Duration: 14 days 01/28/2023 Not-Taking Custom Orthotics as directed 11/03/2021 Not-Taking Lisinopril 5 MG 1 tablet Orally Once a day; Duration: 30 day(s) Active Ammonium Lactate 12 % 1 application Exte rnally Twice a day; Duration: 30 days Not-Taking Pradaxa 150 MG 1 capsule Orally Twi ce a day Not-Taking Ciclopirox 0.77 % 1 application Rotary Drill Operator ally Twice a day; Duration: 30 days 07/15/2022 Not-Taking Gabapentin 800 MG 1 tablet Orally Once a day; Duration: 30 day(s) Active Social History Tobacco Use: Social History Observation Description Date Details (start date - stop date) Never Smoker NA - NA Tobacco use other than smoking: Question Answer Notes Are you an other tobacco user? No Tobacco Control (Standard) Question Answer Notes Tobacco use: Nonsmoker Additional Findings: Tobacco non-user Current no nsmoker AUDIT-C (Standard) Question Answer Notes Did you have a drink containing alcohol in the p ast year? No Points 0 Interpretation Negative Vital Signs Height 6ft in 02/14/2025 Weight 288 lbs 02/14/2025 BMI 39.06 kg/m2 02/14/2025 Blood pressure systolic 129 mm Hg 02/15/20 25 Blood pressure diastolic 80 mm Hg 025 Encounters Encounter Location Date Provider Diagnosis [facility] [address] [address] 02/14/2025 Nalini Dyer Pain in right toe(s) M79.674 ; Onychomycosis B35.1 and Pain in left toe(s) M79.675 Assessments Encounter Date Diagnosis (ICD Code) Assessment Notes Treatment Notes Treatment Clinical Notes Section Notes 02/14/2025 Pain in right toe(s) (ICD-10 - M79.674) 02/14/2025 Onychomycosis (ICD-10 - B35.1) 02/14/2025 Pain in left toe(s) (ICD-10 - M79.675) Plan Of Treatment Next Appt Details Follow Up: 2 Months, Reason: Provider Name:Nalini addison, 04/22/2025 03:00:00 PM, [address] [place] [address], [place], [address], Procedure Notes * Category Sub-Category Detail Notes Debride Nail 6-10 Nail debridement Due to [...] use of a nail nipper and/or dremel-type liquor grinder mill operator, to a more viable healthy nail plate [...] to maintain effectiveness in symptomatic relief - 29401 Progress Notes * Kedar MCLAUGHLINnidiasDOB: 3 (59 yo M)Acc No.[id number]:02/14/2025 Progress Note Patient: Steven SALEEM Provider: Elmer Dyer DPM :1965 A ge:59 Y S ex:Male Date:02/14/2025 Address:[address] [place] [address] Pcp:Leland Brandon MD Subjective: * Chief Complaints: * P ainful nail(s) aggravated by shoes causing difficulty standing/walking * HPI: P ainful Nails: Pt States Last PCP Visit: D ate: 0 01/11/2025 * ROS: G eneral/Constitutional: Nausea d enies, . V omiting d enies. H eduar Thirst d enies. L oss appetite d enies. C hills d enies. F atigue d enies.?Fever d enies. N ight Sweats d enies. U nexplained weight loss d enies.?Unexplained weight gain d enies. H EENTM: Dentures d enies. D izziness d enies. G lasses/contacts a dmits. R etinopathy d enies. B lurred/double vision d enies. T MJ?denies. D ischarge/drainage d enies. I mplants d enies. S ore throat d enies. D ental implants d enies. H anushka of hearing d enies. D ifficulty chewing/swallowing/speaking d enies. N ose bleeds d enies. S ore mouth d enies. ? R espiratory: On Oxygen d enies. P neumonia/pleurisy d enies.?Bronchitis d enies. E mphysema d enies. C oughing d enies. C ough blood?denies. S hortness of breath d enies. W heezing d enies. C ardiovascular: Pacemaker d enies. M FORMING MACHINE UPKEEP MECHANIC HELPER d enies. W PW d enies. C HF d enies. H eart attack d enies. S eptal defect d enies. R apid beat d enies. C hest pain d enies. A trial Fib. d enies. M urmur/Palpitations d enies. G astrointestinal: Hemorrhoids d enies. S tomach/Abdominal pain d enies. D ark blood stool d enies. I rritable bowel d enies. C onstipation d enies. D iarrhea d enies. H ematology: Swelling d enies. C lots d enies. V aricose Veins a dmits. B ruising d enies. B leeding problem d enies. G enitourinary: Blood urine d enies. F requent/Painfu/urination/bladder control d enies. K idney stones d enies. I nfection (UTI) d enies. N ephropathy d enies. s ex trans dis (STD) d enies. P rostate d enies. M usculoskeletal: Hammertoes d enies. B unions d enies. B ack Pain a dmits. M uscle Cramps/ Resting d enies. M uscle cramps / walking d enies.?Generalized aches and pains a dmits. W eakness d enies. I nteg.: Vogel d enies. S cars d enies. C orns/calluses?admits. I ngrown nails d enies. P ainful nails a dmits. O pen Sores d enies. R ashes d enies. N eurologic: Difficulty sleeping a dmits. B rain disorder d enies. N umbness d enies. B alance trouble d enies. C onfusion d enies. F ainting/blackouts d enies. T ingling d enies. T remors d enies. * Medical History: * Surgical History: e ar tubes * Hospitalization/Major Diagno stic Procedure: [facility]- blood clot leg issue, cyst blood clot 09/04 * Family History: M other: . F ather: , arthritis, stroke, high blood pressure. * Social History: T obacco Use: T obacco use other than smoking A re you an other tobacco user? N o Tobacco Control (Standard) T obacco use: N onsmoker A dditional Findings: Tobacco non-user C urrent nonsmoker M iscellaneous: C affeine: yes, 1-2 cups per day. Children: no. Exercise: no. Marital status: single. Occupation: Disabled. D rug/Alcohol: A ZE-C (Standard) D id you have a drink containing alcohol in the past year? N o P oints 0 I nterpretation N egative * Medications: T akingGabapentin 800 MG Tablet 1 tablet Orally Once a day Lisinopril 5 MG Tablet 1 tablet Orally Once a day Taking Gabapentin 800 MG Tablet 1 tablet Orally Once a day Taking Lisinopril 5 MG Tablet 1 tablet Orally Once a day Not-Taking/PRNCustom Orthotics as directed Ammonium Lactate 12 % Cream 1 application [...] List reviewed and reconciled with the patientNot-Taking/PRN Custom Orthotics as directed Not-Taking/PRN Ammonium Lactate 12 % Cream 1 application [...] reviewed and reconciled with the patient * Allergies: N .K.D.A.yes[Allergies Verified] Objective: * Vitals: H t: 6ft, Wt:288, BMI:39.06, Shoe size: 13, BP:129/80mm Hg, Ht-cm: 182.88 cm, Wt- k.64 kg. * Examination: N ails: NAILS are: E longated, overgrown, dystrophic, lytic, greater than 3mm thick, discolored and friable with crumbly malodorous subungual debris, with pain on palpation, TA, T1, T2, T3, T4, T5, T6, T7, T8, T9. Assessment: * Assessment: 1. P ain in right toe(s) - M79.674 2 . O nychomycosis - B35.1 (Primary)? 3. P ain in left toe(s) - M79.675 Plan: * Treatment: * Procedures: D ebride Nail 6-10: Nail debridement D ue to the clinical pathology outlined in the [...] the use of a nail nipper and/or dremel- type liquor grinder mill operator, to a more viable healthy nail plate [...] to maintain effectiveness in symptomatic relief - 13890. * Procedure Codes: 1 1721 DEBRIDE NAIL, 6 OR MORE * Follow Up: 2 Months * Images: * Sign off status: Completed true * Provider: Elmer Dyer, DPM Date: 02/14/2025 Generated for Andreeai alvaro/Alexandrea/eTransmitting on: 02/15/2025 03:34 PM EDT History and Physical Notes * HPI (History of Present Illness) Category Sub-Category Detail Notes Category Not es Painful Nails Pt States Last PCP Visit: Date:: 01/11/2025 Examination Category Sub-Category Detail Notes Category Not es Nails NAILS are: Elongated, overg rown, dystrophic, lytic, greater than 3mm thick, discolored and friable with crumbly malodorous subungual debris, with pain on palpation, TA, T1, T2, T3, T4, T5, T6, T7, T8, T9
--- NOTE | ~2025-02-15 | XR_ITS ---
EXAMINATION: XR SHOULDER, RIGHT CLINICAL INFORMATION: right arm unable to move, ? dislocation COMPARISON: None available. TECHNIQUE: AP external rotation, Grashey, scapular Y, and axillary views of the right shoulder. FINDINGS: Sclerotic margins along the articular surface of the common clavicular joint. Small subchondral cyst formation greater tuberosity, right humerus. No acute cortical disruption or gross malalignment. No lytic or blastic lesions. XR/XR shoulder RT min 2V IMPRESSION: Mild degenerative changes, right shoulder. Electronically signed by: Santana Greer MD 02/15/2025 03:55 PM EDT
--- OUTSIDE RECORDS SUMMARY | 2025-02-15 14:40 | XMS_ITS | Encounter Summary ---
Author Organization [employer] Address [address] [facility] 7t [place] [address] Care Team Providers Care Maintenance Services Dispatcher Name Role Phone Name, Leland MIMS Primary Care Provider [phone] Reason for Referral * Consultation (Routine) - Pending Review Specialty Diagnoses / Procedures Referred By Kahlil hoskins Referred To Contact Pain Medicine Diagnoses Left leg pain Ana Larios NP [address] [place] [address] Phone: tel: fax: Referral ID Status Reason Start Date Expiration Date Visits Requested Visits Authorized [id number] Pending Review Specialty Services Required 02/15/2025 02/15/2026 1 1 Reason for Visit * Reason Comments Shoulder Pain Encounter Details Date Type Department Care Team (Late st Contact Info) Description 02/15/2025 2:40 PM EDT Office Visit [facility] [address] [place], [place] [phone] Acute pain of right shoulder (Primary Dx); Left leg pain Social History Tobacco Use Types [...] Sign Reading Time Taken Comments Blood Pressure 147/83 02/15/2025 2:52 PM EDT Pulse 72 02/15/2025 2:52 PM EDT Temperature 36.8 C (98.2 F) 02/15/2025 2:52 PM EDT Respiratory Rate 19 02/15/2025 2:52 PM EDT Oxygen Saturation 94% 02/15/2025 2:52 PM EDT Inhaled Oxygen Concentration - - Weight 133 kg (294 lb) 02/15/2025 2:52 PM EDT Height - - Body Mass Index 39.87 01/25/2025 9:30 AM EDT documented in this encounter Miscellaneous Notes * Assessment & Plan Note - Ana Larios NP - 02/15/2025 2:40 PM EDTAssociated Problem(s): Acute pain of right shoulder Orders: XR Shoulder 2+ Views Right; Future * Assessment & Plan Note - Ana Larios NP - 02/15/2025 2:40 PM EDTAssociated Problem(s): Left leg pain Orders: Referral to Pain Medicine; Future documented in this encounter Plan of Treatment Upcoming Encounters Date Type Department Care Team (Late st Contact Info) Description 04/10/2025 3:30 PM EDT Office Visit [facility] [address] [place] [address] Name, MD Leland [address] [place] [phone] Scheduled Orders Name Type Priority Associated Diagnoses Orde r Schedule XR Shoulder 2+ Views Right Imaging Routine Acute pain of right shoulder Expected: 02/15/2025, Expires: 02/15/2026 Scheduled Referrals Name Type Priority Associated Diagnoses Orde r Schedule Referral to Pain Medicine Outpatient Referral Routine Left leg pain Expected: 02/15/2025 (Approximate), Expires: 02/15/2026 documented as of this encounter Visit Diagnoses Diagnosis Acute pain of right shoulder- Primary Left leg pain Pain in soft tissues of limb documented in this encounter Additional Health Concerns Assessment Noted Time PHQ-9 Depression Total Score: 0 09/14/19 24 3:10 PM EDT documented as of this encounter Care Teams Maintenance Services Dispatcher Relationship Specialty Start Date End Date Name, MD Leland [address] [place] [address] PCP - General Family Medicine 08/26/15 documented as of this encounter
--- OUTSIDE RECORDS SUMMARY | 2025-02-15 15:34 | XMS_ITS | Encounter Summary ---
Author Organization [employer] Address [address] [facility] 7t [place] [address] Care Team Providers Care Bell Hole Digger Name Role Phone Name, Leland MIMS Primary Care Provider [phone] Reason for Visit * Reason Comments Med Refill Encounter Details Date Type Department Care Team ([facility] st Contact Info) Description 06/20/2023 Refill [facility] [address] [place] [address] Name, MD Leland [address] [place], [place] [phone] Insomnia, unspecified type Social History Tobacco Use [...] t he electric, gas, oil or water [employer] threatened to shut off services in your [...] Description 04/10/2025 3:30 PM EDT Office Visit [facility] [address] [place] [address] Name, MD Leland [address] [place] [address] documented as of this encounter Visit Diagnoses Diagnosis Insomnia, unspecified type documented in this encounter Additional Health Concerns Assessment Noted Time PHQ-9 Depression Total Score: 0 09/07/19 23 1:16 PM EDT documented as of this encounter Care Teams Bell Hole Digger Relationship Specialty Start Date End Date Name, MD Leland [address] [place] [address] PCP - General Family Medicine 08/26/15 documented as of this encounter
--- OUTSIDE RECORDS SUMMARY | 2025-02-15 15:34 | XMS_ITS | Encounter Summary ---
Author Organization [employer] Address [address] [facility] 7t [place] [address] Care Team Providers Care Professor Of Visual Arts Name Role Phone Name, Leland MIMS Primary Care Provider [phone] Encounter Details Date Type Department Care Team (Late st Contact Info) Description 07/19/2023 Abstract [facility] [address] [place], [place] [phone] Name, MD Leland [address] [place], [place] [phone] Social History Tobacco Use Types Packs/Day Years [...] Description 04/10/2025 3:30 PM EDT Office Visit [facility] [address] [place] [address] NameLeland MD [address] [place] [phone] documented as of this encounter Procedures Procedure [...] of this encounter Care Teams Professor Of Visual Arts Relationship Specialty Start Date End Date Name, MD Leland [address] [place] [phone] PCP - General Family Medicine 08/26/15 documented as of this encounter
--- OUTSIDE RECORDS SUMMARY | 2025-02-15 15:34 | XMS_ITS | Encounter Summary ---
Author Organization [employer] Address [address] [facility] 7t [place] [address] Care Team Providers Care Hygiene Assistant Name Role Phone Name, Leland MIMS Primary Care Provider [phone] Reason for Visit * Reason Onset Date Comments Nurse Triage 08/06/2024 Encounter Details Date Type Department Care Team ([facility] st Contact Info) Description 08/06/2024 Telephone [facility] [address] [place], [place] [phone] Name, MD Leland [address] [place] [address] Nurse Triage Social History Tobacco Use Types [...] 08/06/2024 3:03 PM EST Triage call with [facility] machine [place] [id number] Pt is called several times and call [...] Description 04/10/2025 3:30 PM EDT Office Visit [facility] [address] [place] [address] Name, MD Leland [address] [place] [address] documented as of this encounter Visit Diagnoses Diagnosis Osteoarthritis of right ankle and foot Swelling of lower limb documented in this encounter Additional Health Concerns Assessment Noted Time PHQ-9 Depression Total Score: 0 09/14/19 24 3:10 PM EDT documented as of this encounter Care Teams Hygiene Assistant Relationship Specialty Start Date End Date Name, MD Leland [address] [place] [address] PCP - General Family Medicine 08/26/15 documented as of this encounter
--- OUTSIDE RECORDS SUMMARY | 2025-02-15 15:35 | XMS_ITS | Encounter Summary ---
Author Organization [email or web address] Address [address] [facility] 7t [place] [address] Care Team Providers Care Sciences Dean Name Role Phone Name, Leland MIMS Primary Care Provider [phone] Encounter Details Date Type Department Care Team ([facility] Contact Info) Description 11/22/[address] [phone] Name, MD Leland [address] [place] [address] [phone] Social History Tobacco Use Types Packs/Day Years [...] Upcoming Encounters Date Type Department Care Team ([facility] Contact Info) Description 04/10/2025 3:30 PM EDT Office Visit [facility] [address] [place] [address] Name, MD Leland [address] [place] [address] documented as of this encounter Visit Diagnoses Not on filedocumented in this encounter Additional Health Concerns Assessment Noted Time PHQ-9 Depression Total Score: 0 09/07/19 23 1:16 PM EDT documented as of this encounter Care Teams Sciences Dean Relationship Specialty Start Date End Date Name, MD Leland [address] [place] [address] PCP - General Family Medicine 08/26/15 documented as of this encounter
--- OUTSIDE RECORDS SUMMARY | 2025-02-15 15:35 | XMS_ITS | Encounter Summary ---
Author Organization [employer] Address [address] [facility] 7t [place] [address] Care Team Providers Care Healthcare Consulting Manager Name Role Phone Name, Leland MIMS Primary Care Provider [phone] Reason for Visit * Reason Onset Date Comments authroization 02/15/2025 Encounter Details Date Type Department Care Team ([facility] st Contact Info) Description 02/15/2025 Telephone [facility] [address] [place], [place] [phone] Name, MD Leland [address] [place] [address] authroization Social History Tobacco Use Types Packs/Day Years [...] encounter Miscellaneous Notes * Telephone Encounter - Leland Hicks - 02/15/2025 11:55 AM EDT Tc from pt requesting fro pcp to give authorization regarding a molar extraction from [facility]. Contact pt at [phone] documented in this encounter Plan of Treatment Upcoming Encounters Date Type Department Care Team (Late st Contact Info) Description 04/10/2025 3:30 PM EDT Office Visit [facility] [address] [place] [phone] NameLeland MD [address] [place] [address] documented as of this encounter Visit Diagnoses Not on filedocumented in this encounter Additional Health Concerns Assessment Noted Time PHQ-9 Depression Total Score: 0 09/14/19 24 3:10 PM EDT documented as of this encounter Care Teams Healthcare Consulting Manager Relationship Specialty Start Date End Date Name, MD Leland [address] [place] [phone] PCP - General Family Medicine 08/26/15 documented as of this encounter
--- OUTSIDE RECORDS SUMMARY | 2025-02-15 15:35 | XMS_ITS | Clinical Summary ---
Author Organization [employer] Address [address] [facility] [address] [place] [address] Care Team Providers Care Winch Driver Name Role Phone Name, Leland MIMS Primary Care Provider [phone] Allergies No known active allergies Medications * [...] A DAY 180 capsule 3 024 Active albuterol 108 (90 Base) MCG/ACT inhaler Inhale 2 puffs every 6 (six) hours if needed for wheezing. 18 g 11 024 Active acetaminophen (Tylenol 8 Hour) 650 MG ER tabletIndicatio ns:COVID-19 Take 1 tablet (650 mg) by mouth every 8 (eight) hours if needed for mild pain. Do not crush, chew, or split. 100 tablet 1 11/05/2 024 Active lisinopril 10 MG tablet Take 1 tablet (10 mg) by mouth Once per day. 90 tablet 1 025 2025 Active Anoro Ellipta 62.5-25 MCG/ACT aerosol powder Inhale 1 puff Once per day. Active Silver (SilvaSorb) gel Apply to ulcer on the left leg Active mometasone (Elocon) 0.1 % ointmentIndicat ions:Venous stasis dermatitis of both lower extremities Apply topically Once per day. APPLY TOPICALLY EVERY DAY IN THE MORNING 45 g 3 Active DULoxetine (Cymbalta) [address] capsule Take 1 capsule (30 mg) by mouth 2 times daily. Do not crush or chew. 60 capsule 11 Active Xarelto 20 MG tablet Take 1 tablet (20 mg) by mouth with evening meal. 30 tablet 025 2025 Active tiZANidine (Zanaflex) 4 MG tablet Take 1 tablet (4 mg) by mouth every 8 (eight) hours if needed for muscle spasms for up to 20 days. 60 tablet Active Diclofenac Sodium 1 % gelIndications: Chronic midline low back pain with sciatica, sciatica laterality unspecified APPLY 2 GRAMS TO AFFECTED AREA(S) TWICE DAILY 100 g Active lidocaine (Lidoderm) 5 % patchIndication s:Chronic pain syndrome Apply 1 patch topically Once per day. Remove & discard patch within 12 hours or as directed by . 30 patch 2 Active Blood Pressure kit 1 Device Once per day. 1 kit Active gabapentin (Neurontin) 800 MG tabletIndicatio ns:Chronic pain syndrome TAKE 1 TABLET BY MOUTH THREE TIMES DAILY 90 tablet 3 Active propranolol (Inderal) 80 MG tablet Take 1 tablet by mouth 2 times daily. Active tamsulosin (Flomax) 0.4 MG 24 hr capsule Take 1 capsule by mouth Once per day. Active Varenicline Tartrate, Starter, (Chantix Starting Month ) 0.5 MG X 11 & 1 MG X 42 tablet therapy pack Take 0.5 mg by mouth Once daily for 3 days, THEN 0.5 mg 2 times daily for 4 days, THEN 1 mg 2 times daily for 21 days. 53 each 025 2024 Active zolpidem (Ambien) 10 MG tabletIndicatio ns:Insomnia, unspecified type Take 1 tablet (10 mg) by mouth if needed at bedtime for sleep. Do not start before February 01, 2025. 28 tablet Active Varenicline Tartrate, Starter, (Chantix Starting Month ) 0.5 MG X 11 & 1 MG X 42 tablet therapy packIndications :Tobacco use Take 0.5 mg by mouth Once daily for 3 days, THEN 0.5 mg 2 times daily for 4 days, THEN 1 mg 2 times daily for 21 days. 1 each 024 2024 Discontinued(M ed list cleanup (will not trigger notification to Pharmacy)) fluticasone (Flonase) 50 MCG/ACT nasal sprayIndication s:COVID-19 Administer 1 spray into each nostril if needed in the morning and at bedtime for rhinitis. Shake gently. Before first use, prime pump. After use, clean tip and replace cap. 16 g 1 024 2024 Discontinued(M ed list cleanup (will not trigger notification to Pharmacy)) oxyCODONE (Roxicodone) 5 MG immediate release tablet Take 1 tablet by mouth every 6 (six) hours if needed. 025 2024 Discontinued(M ed list cleanup (will not trigger notification to Pharmacy)) furosemide (Lasix) 20 MG tabletIndicatio ns:Right leg swelling Take 1 tablet (20 mg) by mouth Once per day for 5 days. 5 tablet 025 2024 Discontinued(M ed list cleanup (will not trigger notification to Pharmacy)) triamcinolone (Kenalog) 0.1 % ointmentIndicat ions:Rash Apply topically 2 times daily. 15 g 025 2024 Discontinued(M ed list cleanup (will not trigger notification to Pharmacy)) dexAMETHasone (Decadron) 4 MG tabletIndicatio ns:Low back pain due to bilateral sciatica,Chroni c pain syndrome Take 1 tablet (4 mg) by mouth with breakfast and with evening meal for 7 days. 14 tablet 025 2024 Discontinued(M ed list cleanup (will not trigger notification to Pharmacy)) zolpidem (Ambien) 10 MG tabletIndicatio ns:Insomnia, unspecified type TAKE 1 TABLET BY MOUTH AT BEDTIME NEEDED FOR SLEEP 28 tablet 025 2024 Discontinued(R eorder (will not trigger notification to Pharmacy)) predniSONE (Deltasone) 20 MG tablet Take 2 tablets (40 mg) by mouth Once per day for 3 days, THEN 1 tablet (20 mg) Once per day for 3 days, THEN 0.5 tablets (10 mg) Once per day for 4 days. 11 tablet 025 2024 Active Problems Problem Noted Date Diagnosed Date Acute pain of right shoulder 02/15/2025 Assessment & Plan (02/15/2025 3:16 PM EDT): Orders: XR Shoulder 2+ Views Right; Future Left leg pain 02/15/2025 Assessment & Plan (02/15/2025 3:16 PM EDT): Orders: Referral to Pain Medicine; Future Edema of right lower extremity 12/11/2024 Assessment & Plan (12/11/2024 2:59 PM EDT): STAT leg US ordered to r/o new DVT Presence of IVC filter 08/20/2024 Low back pain due to bilateral sciatica 05/17/20 Assessment & Plan (12/11/2024 3:00 PM EDT): In light of severe pain I prescribed for patient dexatheasone for 1 week, but he will consult first with pain management if he can take this medication before his local injection, if not patient will not take this medication and instead take acetaminophen plus ibuprofen Assessment & Plan (06/15/2024 2:43 PM EST): I advised to use heat for affected area I will prescribe one more time dexamethasone I explain to patient is not a good medication to take for assisted due to side effects (weight gain, osteoporosis, [...] twice a day for 10 days I rehab/pre vocational counselor patient that if problem persists or [...] to the hospital, case was presented to [facility] I let them know patient should have a CTA to r/o pulmonary embolism Connell's cyst of knee, right 02/07/2024 Assessment & Plan (02/07/2024 3:06 PM EDT): I will refer him to orthopedics to address his pain Hammer toe of right foot 03/29/2023 023 Neuropathy 03/29/2023 03/29/2023 Other acquired deformities of left foot 03/29/20 23 03/29/2023 snf (current) use of opiate analgesic 03/1303/23/2023 Overview [...] therapy patient 03/20/2018 Chronic peripheral venous hypertension 06/01/201 8 Neurogenic claudication due to lumbar spinal [...] pain management Swelling of lower limb 09/27/2017 Assessment & Plan (12/04/2024 11:51 PM EDT): -gave # of his vascular to continue care -pt had yesterday referral for DANNY US Recurrent deep vein thrombosis 09/06/2017 Depressive disorder 05/18/2017 Opioid dependence 05/03/2017 Foot pain 04/18/2017 Migraine without aura, not refractory 02/11/2017 Recurrent major depression in partial remission 02/11/2017 Acute deep vein thrombosis ( DVT) of femoral vein of right lower extremity 12/23/2016 HTN (hypertension) 10/05/2016 Assessment & Plan (12/11/2024 3:11 PM EDT): Today BP elevated likely due to pain, I advised low Na diet and f/u with PCP Assessment & Plan (12/04/2024 11:50 PM EDT): -BP controlled today ,continue plan as rec yesterday -referred today to MTM -seems pt has difficulty w his meds-does get help from [employer] ,states has VNA monthly -prescribed BP machine today and advised pt to monitor w [employer] therapeutic support staff in 2 weeks -requested to RN team today ,given pt reports episodes of low BP sometimes so can be monitored -continue to f w PCP Obstructive sleep apnea syndrome 01/14/2016 Chronic pain 08/29/2015 Compression fracture of vertebral column 016 Idiopathic scoliosis 08/29/2015 Insomnia 08/29/2015 Severe obesity 08/29/2015 Chronic narcotic use 08/29/2015 Tobacco dependence syndrome 08/29/2015 Rotator cuff disorder 03/21/2015 Overview (08/01/2024): Right sided with decreased range of motion. Patient follows at [facility] and has been treated with injections [...] Encounters Date Type Department Care Team Description 02/15/2025 2:40 PM EDT Office Visit [facility] [place] [address] Acute pain of right shoulder (Primary Dx); Left leg pain 02/15/2025 Travel 02/15/2025 Telephone [facility] [address] Leland Brandon MD authroization 01/29/2025 Telephone [facility] [place] [address] Leland Brandon MD Referral 01/29/2025 Refill [facility] [place] [address] Leland Brandon MD Insomnia, unspecified type 01/28/2025 Refill [facility] [facility] [place] [address] Sonia Treviño ANP Insomnia, unspecified type 01/25/2025 9:30 AM EDT Office Visit [facility] [place] [address] Leland Brandon MD Dyspnea on exertion (Primary Dx); Hypoxia; Tobacco dependence syndrome; Chronic pain syndrome; Low back pain due to bilateral sciatica; Gait difficulty 01/25/2025 Telephone [facility] [place] [address] Leland rBandon MD 01/25/2025 Travel 01/24/2025 Telephone [facility] [facility] [place] [address] Lashae West MA chart prep 01/18/[address] [place] [address] Lashae West MA ocotber recalls 01/14/2025 Patient Outreach [facility] [facility] [place] [address] Leland Brandon MD Transition Of Care (Tcm) (F- ) 01/03/2025 Refill [facility] [place] [address] Leland Brandon MD Chronic pain syndrome; Insomnia, unspecified type 01/01/[address] [address] Leland Brandon MD Referral 12/11/2024 1:40 PM EDT Office Visit [facility] [address] [place] [address] Stacey Wade MD Hypertension, unspecified type (Primary Dx); Edema of right lower extremity; Low back pain due to bilateral sciatica; Chronic pain syndrome 12/11/2024 Orders Only [facility] External Provider, [facility] 12/11/2024 Travel 12/10/[address] [address] Leland Brandon MD Nurse Triage 12/07/2024 Telephone [facility] [address] [place] [address] Chrissie Cosme NP 12/06/2024 Refill [facility] [address] [place] [address] Leland Brandon MD Insomnia, unspecified type 12/04/2024 2:40 PM EDT [facility] [address] [address] Stacey Syed MD Chronic pain syndrome (Primary Dx); Dyspnea on exertion; Hypertension, unspecified type; Swelling of lower limb 12/04/[address] [phone] Kelsi Huff RN 12/04/2024 Travel 12/04/2024 Telephone [facility] [address] [place] [address] Chrissie Cosme NP 12/03/2024 5:00 PM EDT [facility] [address] [address] Chrissie Cosme NP Right leg swelling (Primary Dx); Rash 12/03/[address] [phone] Leland Brandon MD Nurse Triage 11/16/2024 9:00 AM EDT Office Visit [address] [address] Name, MD Leland Chronic midline low back pain with sciatica, sciatica laterality unspecified (Primary Dx); Chronic deep vein thrombosis (DVT) of left lower extremity, unspecified vein ([facility]/HCC) 11/16/2024 Travel 11/15/2024 Telephone [facility] [address] [place] [address] Lyudmila Garcia MA Chart Prep from Last 3 Months Immunizations Immunization Administration [...] (294 lb) 02/15/2025 2:52 PM EDT Height 182.9 cm (6') 01/25/2025 9:30 AM EDT Body Mass Index 39.87 01/25/2025 9:30 AM EDT Plan of Treatment Upcoming Encounters Date Type Department Care Team (Late st Contact Info) Description 04/10/2025 3:30 PM EDT Office Visit [facility] [address] [place] [address] Name, MD L[facility] [place] [facility] [place] [address] Health Maintenance Due Date Last Done Comments CT Colonography 1965 FIT DNA/Cologuard 1965 FIT 1965 FOBT 1965 Sigmoidoscopy 1965 RSV Patients and Patients Aged 60 years or older (1 - Risk 60-74 years 1-dose series) 2023 Depression Screening 09/13/2024 09/14/2023, 09/14/19 COVID-19 Vaccine ( season) 2025 06/18/2021, 10/30/2020, 10/02/2020 Influenza Vaccine (#1) 2025 , 03/19/2024, 04/05/2023, Additional history exists Disability Screening 08/30/2025 08/30/2024 SDOH Screening 09/10/2025 09/10/2024 Alcohol/Substance Use Screening 11/16/2025 11/16/2024 Tobacco Screening 02/15/2026 02/15/2025 DTaP/Tdap/Td Vaccines (2 - Td or Tdap) [...] Procedure Name Priority Date/Time Associated Diagnosis Comments VASC US LOWER EXTREMITY VENOUS DUPLEX BILATERAL Routine 12/11/2024 3:16 PM EDT HEPATITIS C AB W/REFL TO HCV RNA, [...] Recently Relevant to Health Maintenance Results * VASC US Lower Extremity Venous Duplex Bilateral (12/11/2024 3:16 PM EDT) 12/11/2024 3:16 PM EDT Narrative [facility] - 12/12/2024 1:13 PM EDT [address] [address] Ultrasound Report Signed Patient: Steven Novak MR#: [id number] : 1965 Acct:[id number] Age/Sex: 59 / M ADM Date: 12/11/24 Loc: HO.US Attending Dr: Chrissie Cosme Ordering Physician: Eliecer Bui MD Date of Service: 12/11/24 Procedure(s): US venous duplex LE BI Accession Number(s): [id number] cc: Stacey Wade MD; Eliecer Bui MD; Name,Leland MIMS EXAMINATION: US LOWER EXTREMITY VEINS BILATERAL HISTORY: M79.605 - Pain in left leg, Right leg swelling COMPARISON: Comparison is made with the prior examination dated 08/12/2021. TECHNIQUE: Duplex and color Doppler sonographic examination of the deep venous system of the bilateral lower extremities was performed. FINDINGS: The right common femoral, superficial femoral, and popliteal veins are patent demonstrating normal compressibility, spontaneous flow, and augmentation. There is a normal color and spectral Doppler waveform appearance of the visualized deep venous system above the knee. The posterior tibial and peroneal veins are not visualized. There is a complex fluid collection in the popliteal fossa measuring 5.9 x 1.4 x 2.7 cm, consistent with a Connlel's cyst. The left common femoral and proximal superficial femoral veins are patent demonstrating normal compressibility, spontaneous flow, and augmentation. Again seen is occlusive thrombus in the distal superficial femoral and popliteal veins without change. The posterior tibial and peroneal veins are not visualized. The patient is status post ablation of the small saphenous vein 3 cm from the junction with the popliteal vein. US/US venous duplex LE BI IMPRESSION: 1. 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 2. No evidence of DVT in the right lower extremity. 3. 5.9 x 1.4 x 2.7 cm right popliteal fossa Connell's cyst. Electronically signed by: Cristian Herron MD 12/12/2024 07:18 AM EDT Dictated By: Cristian Herron MD Signed By: <Electronically signed by Cristian Herron MD in OV> 12/12/24717 DD/ 1516 TD/TT: 12/11/24 1547 Customer Relations Representative: Procedure Note Donotuseinterpreter, Image - 12/12/[address] [address] Ultrasound Report Signed Patient: Michele Novak#: M [id number] : 1965Acct:[id number] Age/Sex: 59 / MADM Date: 12/11/24 Loc: .US Attending Dr: Chrissie Cosme Ordering Physician: Eliecer Bui MD Date of Service: 12/11/24 Procedure(s): US venous duplex LE BI Accession Number(s): [id number] cc: Stacey Wade MD; Eliecer Bui MD; Name,Leland MIMS EXAMINATION: US LOWER EXTREMITY VEINS BILATERAL HISTORY: M79.605 - Pain in left leg, Right leg swelling COMPARISON: Comparison is made with the prior examination dated 08/12/2021. TECHNIQUE: Duplex and color Doppler sonographic examination of the deep venous system of the bilateral lower extremities was performed. FINDINGS: The right common femoral, superficial femoral, and popliteal veins are patent demonstrating normal compressibility, spontaneous flow, and augmentation. There is a normal color and spectral Doppler waveform appearance of the visualized deep venous system above the knee. The posterior tibial and peroneal veins are not visualized. There is a complex fluid collection in the popliteal fossa measuring 5.9 x 1.4 x 2.7 cm, consistent with a Connell's cyst. The left common femoral and proximal superficial femoral veins are patent demonstrating normal compressibility, spontaneous flow, and augmentation. Again seen is occlusive thrombus in the distal superficial femoral and popliteal veins without change. The posterior tibial and peroneal veins are not visualized. The patient is status post ablation of the small saphenous vein 3 cm from the junction with the popliteal vein. US/US venous duplex LE BI IMPRESSION: 1. 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 2. No evidence of DVT in the right lower extremity. 3. 5.9 x 1.4 x 2.7 cm right popliteal fossa Connell's cyst. Electronically signed by: Cristian Herron MD 12/12/2024 07:18 AM EDT Dictated By: Cristian Herron MD Signed By: <Electronically signed by Cristian Herron MD in OV> 12/12/24 0718 DD/ 1516 TD/TT: 12/11/24 1547 Customer Relations Representative: [facility] External Provider CV VASC ULAR PROCEDURES Final Result Performing Organization Address [facility]/ZIP Co de Phone Number [facility] [address] [place] [address] * Hepatitis C Antibody with Reflex to HCV, RNA, Quantitative, Real-Time PCR (10/14/2023 11:05 AM EDT) Hepatitis C Antibody Nonreactive Nonreactive [facility] Comment:Antibodies to HCV no t detected; does not exclude early acuteHCV infection. Blood Venous blood specimen / Unknown 10/14/2023 11:05 AM EDT 10/14/2023 1:15 PM EDT Leland Brandon MD LAB BLOOD ORDERABLES Final Resul t Performing Organization Address [facility] Co de Phone Number [facility] [address] [place] [phone] * HIV-1/2 Antigen and Antibodies, Fourth [...] below the limit ofdetection of this assay.The [employer] HIV Ag/Ab Combo assay result andsupplemental assay results should be interpreted inconjunction with the patient's clinical presentation,history and other laboratory results. If the results areinconsistent with clinical evidence, additional testing issuggested to confirm the result. Blood Venous blood specimen / Unknown 10/14/2023 11:05 AM EDT 10/14/2023 1:15 PM EDT us Leland Brandon MD LAB BLOOD ORDERABLES Final Resul t Performing Organization Address [facility] Co de Phone Number [facility] [address] [place] [phone] * (ABNORMAL) Lipid Panel, Standard (10/14/2023 11:05 AM EDT) Triglycerides 105 <150 mg/dL [facility] Comment:Desirable Triglyceri de: less than 150 mg/dLBorderline High Triglyceride 150-199 mg/dLHigh Triglyceride: 200-499 mg/dLVery High Triglyceride: greater than or equal to 5OO mg/dL Cholesterol 192 <200 mg/dL [facility] Comment:Desirable Cholestero l: less than 200 mg/dLBorderline High Cholesterol: 200-239 mg/dLHigh Cholesterol: greater than 239 mg/dL LDL Cholesterol Calculated 102(H) <100 mg/dL [facility] Comment:Desirable LDL: less than 100 mg/dLNear Optimal/Above Optimal LDL: 110- 129 mg/dLBorderline High LDL: 130-159 mg/dLHigh LDL: 160-189 mg/dLVery High LDL: greater than or equal to 190 mg/dL HDL Cholesterol 69 >40 mg/dL [facility] Comment:Desirable HDL: great er than 40 mg/dL Note: This HDL assay may give artificially low results in patients with liver disease. Blood Venous blood specimen / Unknown 10/14/2023 11:05 AM EDT 10/14/2023 1:15 PM EDT us Leland Brandon MD LAB BLOOD ORDERABLES Final Resul t Performing Organization Address [facility]/ZIP Co de Phone Number [facility] [address] [place] [phone] * Hm Colonoscopy (07/14/2023) Colonoscopy Normal Normal Comment:Normal Colonoscopy r epeat 10 years Leland Brandon MD HEALTH MAINTENANCE Final Result from Last 3 Months or Most Recently Relevant to Health Maintenance Insurance [facility] < [address] [place] [phone] Care Teams Winch Driver Relationship Specialty Start Date End Date Name, MD Leland [address] [place] [address] PCP - General Family Medicine 08/26/15
--- OUTSIDE RECORDS SUMMARY | 2025-02-15 15:35 | XMS_ITS | Encounter Summary ---
Author Organization [employer] Address [address] [facility] [address] [place] [address] Care Team Providers Care Senior Business Consultant Name Role Phone Name, Leland MIMS Primary Care Provider [phone] Reason for Visit * Reason Onset Date Comments Med Refill 07/28/2023 Encounter Details Date Type Department Care Team ([facility] st Contact Info) Description 07/28/2023 Telephone [facility] [address] [place] [address] Name, MD Leland [address] [place], [place] [phone] Med Refill Social History Tobacco Use Types [...] Vogt LPN - 07/28/2023 11:52 AM EST PLAYER DEVELOPMENT MANAGER checked 07/28/23 last filled on 06/17/23 refill 2/3 patient should have 1 refill left. * Telephone Encounter - Hailee Louie - 07/28/2023 11:08 AM EST TC from pt requesting medication refill. Medications needing refill : gabapentin (Neurontin) 800 MG tablet To be sent to: [facility] [place] - [address] [place] [address] documented in this encounter Plan of Treatment Upcoming Encounters Date Type Department Care Team (Late st Contact Info) Description 04/10/2025 3:30 PM EDT Office Visit [facility] [address] [place] [address] Name, MD Leland [address] [place] [address] documented as of this encounter Visit Diagnoses Not on filedocumented in this encounter Additional Health Concerns Assessment Noted Time PHQ-9 Depression Total Score: 0 09/07/19 23 1:16 PM EDT documented as of this encounter Care Teams Senior Business Consultant Relationship Specialty Start Date End Date Name, MD Leland [address] [place] [address] PCP - General Family Medicine 08/26/15 documented as of this encounter
--- OUTSIDE RECORDS SUMMARY | 2025-02-15 15:35 | XMS_ITS | Encounter Summary ---
Author Organization [employer] Address [address] [facility] [address] [place] [address] Care Team Providers Care Mathematical Statistician Name Role Phone Name, Leland MIMS Primary Care Provider [phone] Reason for Visit * Reason Comments Med Refill Encounter Details Date Type Department Care Team (Late Contact Info) Description 02/21/2023 Refill [facility] [address] [place] [phone] NameLeland MD [address] [place] [address] [phone] Insomnia, unspecified type Social History Tobacco Use [...] Encounters Date Type Department Care Team (Late Contact Info) Description 04/10/2025 3:30 PM EDT Office Visit [facility] [address] [place] [address] [phone] Name, MD Leland [address] [place] [phone] documented as of this encounter Visit Diagnoses Diagnosis Insomnia, unspecified type documented in this encounter Additional Health Concerns Assessment Noted Time PHQ-9 Depression Total Score: 0 09/07/19 23 1:16 PM EDT documented as of this encounter Care Teams Mathematical Statistician Relationship Specialty Start Date End Date Name, MD Leland [address] [place] [address] PCP - General Family Medicine 08/26/15 documented as of this encounter
--- OUTSIDE RECORDS SUMMARY | 2025-02-15 15:35 | XMS_ITS | Clinical Summary ---
Author Organization [facility] Address [address] [place] [address] Care Team Providers Care Shake Table Operator Name Role Phone No, Pcp Primary [...] (2 of 2 - PCV) 11/28/2016 11/29/2015 Alcohol/Substance Use Screening 06/13/2024 Depression Screening and Follow-Up 06/13/2024 Social Drivers of Health Annual Screening 06/13/2024 COVID-19 Vaccine ( season) 2025 06/18/2021, 10/30/2020, 10/02/2020 Influenza Vaccine (#1) 2025 , 04/10/2020, 05/17/2019, Additional history exists DTaP,Tdap,and Td Vaccines (2 - Td or Tdap) 03/20/2028 03/20/2018, 07/09/1998 RSV Vaccine (60+ years old and patients) (1 - 1-dose 75+ series) 2038 Zoster Vaccines Completed 08/26/2020, 06/25/2020 Hepatitis B Vaccines Aged Out No long er eligible based on patient's age to complete this topic Insurance [facility] Care Teams Shake Table Operator Relationship Specialty Start Date End Date No, Pcp HIREN PCP - General 01/29/22
--- OUTSIDE RECORDS SUMMARY | 2025-02-15 15:35 | XMS_ITS | Encounter Summary ---
Author Organization [employer] Address [address] [facility] 7t [place] [address] Care Team Providers Care Slasher Runner Name Role Phone Name, Leland MIMS Primary Care Provider [phone] Encounter Details Date Type Department Care Team (Latest Contact Info) Description 02/15/2025 Travel Social History Tobacco Use Types Packs/Day [...] Description 04/10/2025 3:30 PM EDT Office Visit [facility] [address] [place] [address] Name, MD Leland [address] [place] [address] documented as of this encounter Visit Diagnoses Not on filedocumented in this encounter Additional Health Concerns Assessment Noted Time PHQ-9 Depression Total Score: 0 09/14/19 24 3:10 PM EDT documented as of this encounter Care Teams Slasher Runner Relationship Specialty Start Date End Date NameLeland MD [address] [place] [address] PCP - General Family Medicine 08/26/15 documented as of this encounter
--- OUTSIDE RECORDS SUMMARY | 2025-02-15 15:35 | XMS_ITS | Patient Health Record ---
Author Organization [facility] Address [address] [facility] [place] [address] Care Team Providers Care Local Owner Operator Truck Driver Name Role Phone Name Leland MIMS Primary Care Provider UnavailAlex Naqvimie Unavailable [phone] Nalini Dyer Unavailable [phone] Allergies No Known Allergies Reason For Referral No Information Medications Medication SIG (Take, Route, Frequency, Duration) Notes Start Date End Date Status Custom Orthotics as directed 11/03/2021 Not-Taking Gabapentin 800 MG 1 tablet Orally Once a day; Duration: 30 day(s) Active Lisinopril 5 MG 1 tablet Orally Once a day; Duration: 30 day(s) Active Acetaminophen 500 MG 1 tablet as needed Orally every 6 hrs; Duration: 14 days 01/28/2023 Not-Taking Medrol juan j 4mg as directed orally a s directed; Duration: 6 days 05/20/2022 Not-T aking Piroxicam 20 MG TAKE 1 CAPSULE BY [facility] EVERY DAY WITH FOOD FOR 30 DAYS; Duration: 30 Not-Taking Eliquis 5 MG as directed Orally Not-Taking Ammonium Lactate 12 % 1 application Exte rnally Twice a day; Duration: 30 days Not-Taking Pradaxa 150 MG 1 capsule Orally Twi ce a day Not-Taking Ciclopirox 0.77 % 1 application Clarifier Operator ally Twice a day; Duration: 30 days 07/15/2022 Not-Taking Naproxen 500 MG 1 tablet Orally WITH FOOD Twice a day; Duration: 14 days 01/28/2023 Not-Taking Immunizations Vaccine Route Administration Date Status Comme nts Influenza Unknown 11/15/2024 Administered Social History Tobacco Use: Social History Observation [...] Problem Status W/U Status Risk Notes Problem Plantar wart (01330355) Plantar wart (B07.0) Active confirmed Problem Acquired hammer toe of left foot (1139543915498601 ) Other hammer toe(s) (acquired), left foot (M20.42) Active confirmed Problem Acquired hammer toe of right foot (0155546780956706 ) Hammer toe of right foot (M20.41) Active confirmed Problem Neuropathy (012061775) Neuropathy (G62.9) Active confirmed Problem Localized, primary osteoarthritis of the ankle and/or foot (999523590) Osteoarthritis of right ankle and foot (M19.071) Active confirmed Problem PlantarFlexion o f metatarsal of left foot (M21.6X2) Active confirmed Problem Gouty arthritis of left foot (0907039932072168 ) Gouty arthritis of left foot (M10.9) Active confirmed Vital Signs Blood pressure diastolic 80 mm Hg 02/14/2025 Height 6ft in 02/14/2025 Blood pressure systolic 129 mm Hg 02/14/2025 Weight 288 lbs 02/14/2025 BMI 39.06 kg/m2 02/14/2025 Encounters Encounter Location Date Provider Diagnosis [facility] [address] [address] 05/21/2024 Nalini Dyer Tinea unguium B35.1 ; Metatarsalgia, left foot M77.42 ; Pain in right toe(s) M79.674 ; Pain in left toe(s) M79.675 ; Xerosis of skin L85.3 ; PlantarFlexion of metatarsal of left foot M21.6X2 ; Other hammer toe(s) (acquired), left foot M20.42 ; Hammer toe of right foot M20.41 and Bursitis of intermetatarsal bursa of left foot M77.[address] [address] 09/06/2024 Nalini Perica Pain in right toe(s) M79.674 ; Onychomycosis B35.1 ; Pain in left toe(s) M79.675 ; Plantar wart B07.0 and Left foot pain M79.[address] [address] 11/15/2024 Nalini Perica Pain in right toe(s) M79.674 ; Onychomycosis B35.1 ; Pain in left toe(s) M79.675 ; Plantar wart B07.0 and Left foot pain M79.[address] [address] 02/14/2025 Nalini Perica Pain in right toe(s) M79.674 ; Onychomycosis B35.1 and Pain in left toe(s) M79.[address] [address] 03/05/2024 Yaquelin Olivo Encounter Date Diagnosis (ICD Code) Assessment Notes Treatment Notes Treatment Clinical Notes Section Notes 05/21/2024 Tinea unguium (ICD-10 - B35.1) 09/06/2024 Pain in right toe(s) (ICD-10 - M79.674) 11/15/2024 Pain in right toe(s) (ICD-10 - M79.674) 02/14/2025 Pain in right toe(s) (ICD-10 - M79.674) 02/14/2025 Onychomycosis (ICD-10 - B35.1) 11/15/2024 Onychomycosis (ICD-10 - B35.1) 02/14/2025 Pain in left toe(s) (ICD-10 - M79.675) 09/06/2024 Pain in left toe(s) (ICD-10 - M79.675) 09/06/2024 Onychomycosis (ICD-10 - B35.1) 05/21/2024 Pain in right toe(s) (ICD-10 - M79.674) 05/21/2024 Metatarsalgia, left foot (ICD-10 - M77.42) 09/06/2024 Plantar wart (ICD-10 - B07.0) 05/21/2024 Pain in left toe(s) (ICD-10 - M79.675) 11/15/2024 Pain in left toe(s) (ICD-10 - M79.675) 11/15/2024 Plantar wart (ICD-10 - B07.0) 09/06/2024 Left foot pain (ICD-10 - M79.672) 05/21/2024 Xerosis of skin (ICD-10 - L85.3) 05/21/2024 PlantarFlexion of metatarsal of left foot (ICD-10 - M21.6X2) 11/15/2024 Left foot pain (ICD-10 - M79.672) 05/21/2024 Other hammer toe(s) (acquired), left foot [...] X ray : Foot, right 3V 01/27/2023 [id number]-[id number] NAIL, 6 OR MORE 11/03/2021 37256-PTVGVRR NAIL, 6 OR MORE 01/19/2022 86618, J0702- INJECT TENDON ORIGIN/INSER T 01/27/202310799, J4865-TKWAP/INJECT, JOINT/BURSA 0 07/02/2022 X ray : Ankle, right 3V 01/27/2023 Next Appt Details Provider Name:Nalini Mesha addison, 04/22/2025 03:00:00 PM, [address], [place] [address], Insurance Providers Payer Name Payer Address Payer Phone Subscriber Number Group Number Insured Name Patient Relationship to Insured Coverage Start Date Coverage End Date [facility] [employer] Claims [address] [place] [phone] [facility] [id number] Steven Subramanian Self - patient is the insured Medical (General) History Medical History History ICD Code Arthritis Depression Psoriasis/eczema Surgical History Surgery Date(Month/Year) ear tubes Hospitalization History Reason Date(Month/Year) blood clot 09/04 [facility] leg issue, cyst [facility]- blood clot 07/2021
--- OUTSIDE RECORDS SUMMARY | 2025-02-15 15:35 | XMS_ITS | Encounter Summary ---
Author Organization [employer] Address [address] [facility] 7t [place] [address] Care Team Providers Care Medart Operator Name Role Phone Name, Leland MIMS Primary Care Provider [phone] Reason for Visit * Reason Comments Med Refill Encounter Details Date Type Department Care Team ([facility] st Contact Info) Description 01/28/2025 Refill [facility] [address] [place], [place] [phone] Sonia Treviño, ANP [address] [place], [place] [phone] Insomnia, unspecified type Social History Tobacco Use [...] Description 04/10/2025 3:30 PM EDT Office Visit [facility] [address] [place] [address] NameLeland MD [address] [place] [address] documented as of this encounter Visit Diagnoses Diagnosis Insomnia, unspecified type documented in this encounter Additional Health Concerns Assessment Noted Time PHQ-9 Depression Total Score: 0 09/14/19 24 3:10 PM EDT documented as of this encounter Care Teams Medart Operator Relationship Specialty Start Date End Date NameLeland MD [address] [place] [address] PCP - General Family Medicine 08/26/15 documented as of this encounter
--- OUTSIDE RECORDS SUMMARY | 2025-02-15 15:35 | XMS_ITS | Encounter Summary ---
Author Organization [employer] Address [address] [facility] 7t [place] [address] Care Team Providers Care Satellite Tv Technician Name Role Phone Name, Leland MIMS Primary Care Provider [phone] Reason for Visit * Reason Onset Date Comments Med Refill 01/02/2024 Encounter Details Date Type Department Care Team ([facility] st Contact Info) Description 01/02/2024 Telephone [facility] [address] [place] [address] Name, MD Leland [address] [place], [place] [phone] Med Refill Social History Tobacco Use Types [...] 10 MG tablet To be sent to: [facility] - [place], [place] - [address] [place] [address] documented in this encounter Plan of Treatment Upcoming Encounters Date Type Department Care Team ([facility] st Contact Info) Description 04/10/2025 3:30 PM EDT Office Visit [facility] [address] [place] [address] Name, MD Leland [address] [place] [address] documented as of this encounter Visit Diagnoses Not on filedocumented in this encounter Additional Health Concerns Assessment Noted Time PHQ-9 Depression Total Score: 0 09/14/19 24 3:10 PM EDT documented as of this encounter Care Teams Satellite Tv Technician Relationship Specialty Start Date End Date Name, MD Leland [address] [place] [address] PCP - General Family Medicine 08/26/15 documented as of this encounter
--- OUTSIDE RECORDS SUMMARY | 2025-02-15 15:35 | XMS_ITS | Clinical Summary ---
Author Organization [facility] Address [address] [place] [address] Phone Care Team Providers Care Preprint Analyst Name Role Phone Name, Leland MIMS Primary Care Provider [phone] Allergies No known active allergies Medications DICLOFENAC [...] of 2 - Risk 2-dose series) 1982 Colorectal Cancer Screening: Colonoscopy 03/16/2024 Hypertension/CHF/CAD Annual BMP Blood Test 03/16/2024 03/21/2015 Medicare Annual Wellness Visit 03/16/2024 Social Influencers of Health Screening 03/16/2024 Depression Screening 06/13/2024 COVID-19 Vaccine ( season) 2025 06/18/2021, 10/30/2020, 10/02/2020 Influenza Vaccine (#1) 2025 , 04/05/2023, 03/24/2021, [...] Most Recently Relevant to Health Maintenance [place] [address] [place] [address] MEDICARE Member Subscriber Plan / Payer (Ef fective 2017-Present) Name:Steven Subramanian Relation to Subscriber:Self Name:Steven Subramanian Payer ID:[id number] Group ID:[id number] Type:Not on file Address: [facility] [address] [place] [address] Care Teams Preprint Analyst Relationship Specialty Start Date End Date Name, MD Leland [address] [place], [place] PCP - General 01/06/15
--- OUTSIDE RECORDS SUMMARY | 2025-02-15 15:35 | XMS_ITS | Encounter Summary ---
Author Organization [employer] Address [address] [facility] 7t [place] [address] Care Team Providers Care Immigration Investigator Name Role Phone Name, Leland MIMS Primary Care Provider [phone] Reason for Visit * Reason Onset Date Comments Referral 07/20/2022 Encounter Details Date Type Department Care Team ([facility] st Contact Info) Description 07/20/2022 Telephone [facility] [address] [place], [place] [phone] Name, MD Leland [address] [place] [address] Referral Social History Tobacco Use Types Packs/Day [...] on message below * Telephone Encounter - Toddanacharisse Garcia - 07/20/2022 10:13 AM EST Marva calling [facility] for new or existing referrals for [facility], [address], [place] [address], Phone #: , Reason for referral is Chronic Severe pain left foot. Marva advised pt has an X-ray done and patient does have the symptom of Chronic pain. Advised Marva with [facility] will forward to team nurse for new referral and quality control specialist for existing referral. Please call Marva at [phone] documented in this encounter Plan of Treatment Upcoming Encounters Date Type Department Care Team (Late st Contact Info) Description 04/10/2025 3:30 PM EDT Office Visit [facility] [address] [place] [address] Name, MD Leland [address] [place] [address] documented as of this encounter Visit Diagnoses Not on filedocumented in this encounter Care Teams Immigration Investigator Relationship Specialty Start Date End Date Name, MD Leland [address] [place] [address] PCP - General Family Medicine 08/26/15 documented as of this encounter
--- OUTSIDE RECORDS SUMMARY | 2025-02-15 15:35 | XMS_ITS | Encounter Summary ---
Author Organization [employer] Address [address] [facility] 7t [place] [address] Care Team Providers Care Av Specialist Name Role Phone Name, Leland MIMS Primary Care Provider [phone] Reason for Visit * Reason Onset Date Comments Verbal Order 07/24/2024 Encounter Details Date Type Department Care Team ([facility] st Contact Info) Description 07/24/[address] [facility] [address] [place], [place] [phone] Name, MD Leland [address] [place] [address] Verbal Order Social History Tobacco Use Types [...] EST Telephone call returned to Katey at [facility], spoke with Katey. Gave verbal orders for VNA care. Asked when last office visit was, advised it was 07/06/24 with PCP and also pt was seen in [facility] walk in clinic on 07/14/24. Katey verbalized understanding, no further questions. * Telephone Encounter - João Bhatt - 07/24/2024 4:34 PM EST Tc from Emelia with [facility] requesting verbal orders. Please contact Emelia at [phone] Opt 2. documented in this encounter Plan of Treatment Upcoming Encounters Date Type Department Care Team (Late st Contact Info) Description 04/10/2025 3:30 PM EDT Office Visit [facility] [address] [place] [address] Name, MD Leland [address] [place] [address] documented as of this encounter Visit Diagnoses Not on filedocumented in this encounter Additional Health Concerns Assessment Noted Time PHQ-9 Depression Total Score: 0 09/14/19 24 3:10 PM EDT documented as of this encounter Care Teams Av Specialist Relationship Specialty Start Date End Date Name, MD Leland [address] [place] [address] PCP - General Family Medicine 08/26/15 documented as of this encounter
--- OUTSIDE RECORDS SUMMARY | 2025-02-15 15:35 | XMS_ITS | Encounter Summary ---
Author Organization [employer] Address [address] [facility] [address] 7t [place] [address] Care Team Providers Care Test Engineer Nuclear Equipment Name Role Phone Name, Leland MIMS Primary Care Provider [phone] Reason for Visit * Reason Comments Med Refill Encounter Details Date Type Department Care Team (Late st Contact Info) Description 07/25/2024 Refill [facility] [address] [place], [place] [phone] Stacey Wade MD 230 [place], [place] [phone] Lumbago with sciatica, right side Social History [...] Description 04/10/2025 3:30 PM EDT Office Visit [facility] [address] [place] [address] Name, MD Leland [address] [place] [address] documented as of this encounter Visit Diagnoses Diagnosis Lumbago with sciatica, right side documented in this encounter Additional Health Concerns Assessment Noted Time PHQ-9 Depression Total Score: 0 09/14/19 24 3:10 PM EDT documented as of this encounter Care Teams Test Engineer Nuclear Equipment Relationship Specialty Start Date End Date Name, MD Leland [address] [place] [address] PCP - General Family Medicine 08/26/15 documented as of this encounter
--- OUTSIDE RECORDS SUMMARY | 2025-02-15 15:35 | XMS_ITS | Encounter Summary ---
Author Organization [employer] Address [address] [facility] 7t [place] [address] Care Team Providers Care Gamma Operator Name Role Phone Name, Leland MIMS Primary Care Provider [phone] Reason for Visit * Reason Comments Med Refill Encounter Details Date Type Department Care Team (Late Contact Info) Description 10/22/[address] [facility] [address] [place] [phone] Name, MD Leland [address] [place] [address] Insomnia, unspecified type Social History Tobacco Use [...] 04/10/2025 3:30 PM EDT Office Visit [facility] [address] [place] [address] Name, MD Leland [address] [place] [address] documented as of this encounter Visit Diagnoses Diagnosis Insomnia, unspecified type documented in this encounter Additional Health Concerns Assessment Noted Time PHQ-9 Depression Total Score: 0 09/07/19 23 1:16 PM EDT documented as of this encounter Care Teams Gamma Operator Relationship Specialty Start Date End Date Name, MD Leland [address] [place] [address] PCP - General Family Medicine 08/26/15 documented as of this encounter
--- OUTSIDE RECORDS SUMMARY | 2025-02-15 15:35 | XMS_ITS | Encounter Summary ---
Author Organization [employer] Address [address] [facility] 7t [place] [address] Care Team Providers Care Line Locator Name Role Phone Name, Leland MIMS Primary Care Provider [phone] Reason for Visit * Reason Onset Date Comments Call Back Request 08/30/2024 Encounter Details Date Type Department Care Team ([facility] st Contact Info) Description 08/30/2024 Telephone [facility] [address] [place] [address] Name, MD Leland [address] [place] [address] Call Back Request Social History Tobacco Use [...] procedure done , pt was inform from [facility] where procedure was done to contact PCP. Pt will like to know if could take walks with no problem due to procedure. Tanzanian speaker documented in this encounter Plan of Treatment Upcoming Encounters Date Type Department Care Team (Late st Contact Info) Description 04/10/2025 3:30 PM EDT Office Visit [facility] [address] [place] [address] Name, MD Leland [address] [place] [address] documented as of this encounter Visit Diagnoses Not on filedocumented in this encounter Additional Health Concerns Assessment Noted Time PHQ-9 Depression Total Score: 0 09/14/19 24 3:10 PM EDT documented as of this encounter Care Teams Line Locator Relationship Specialty Start Date End Date Name, MD Leland [address] [place] [address] PCP - General Family Medicine 08/26/15 documented as of this encounter
--- OUTSIDE RECORDS SUMMARY | 2025-02-15 15:35 | XMS_ITS | Encounter Summary ---
Author Organization [employer] Address [address] [facility] 7t [place] [address] Care Team Providers Care Shingle Carrier Name Role Phone Name, Leland MIMS Primary Care Provider [phone] Reason for Visit * Reason Onset Date Comments FYI 07/26/2024 Encounter Details Date Type Department Care Team ([facility] st Contact Info) Description 07/26/2024 Telephone [facility] [address] [place], [place] [phone] Name, MD Leland [address] [place] [address] FYI Social History Tobacco Use Types Packs/Day Years [...] 8:17 AM EST Tc from Sol with [facility] stating that they contact Pt but he refused Both time and they are only allowed to try and offer the Services twice. So they said that they were not going to keep trying. If any questions contact Sol at [phone] documented in this encounter Plan of Treatment Upcoming Encounters Date Type Department Care Team (Late st Contact Info) Description 04/10/2025 3:30 PM EDT Office Visit [facility] [address] [place] [address] Name, MD Leland [address] [place] [address] documented as of this encounter Visit Diagnoses Not on filedocumented in this encounter Additional Health Concerns Assessment Noted Time PHQ-9 Depression Total Score: 0 09/14/19 24 3:10 PM EDT documented as of this encounter Care Teams Shingle Carrier Relationship Specialty Start Date End Date Name, MD Leland [address] [place] [address] PCP - General Family Medicine 08/26/15 documented as of this encounter
--- OUTSIDE RECORDS SUMMARY | 2025-02-15 15:35 | XMS_ITS | Encounter Summary ---
Author Organization [employer] Address [address] [facility] 7t [place] [address] Care Team Providers Care Patternmaker Metal Bench Name Role Phone Name, Leland MIMS Primary Care Provider [phone] Encounter Details Date Type Department Care Team (Late st Contact Info) Description 03/24/2023 Telephone [facility] 230 [place], [place] [phone] Name, MD Leland [address] [place] [address] Social History Tobacco Use Types Packs/Day Years [...] advise PCP pt is currently admitted to [facility] and was found with blood clots to both legs. Any questions, contact pt at [phone] documented in this encounter Plan of Treatment Upcoming Encounters Date Type Department Care Team (Late st Contact Info) Description 04/10/2025 3:30 PM EDT Office Visit [facility] [address] [place] [address] Name, MD Leland [address] [place] [address] documented as of this encounter Visit Diagnoses Not on filedocumented in this encounter Additional Health Concerns Assessment Noted Time PHQ-9 Depression Total Score: 0 09/07/19 23 1:16 PM EDT documented as of this encounter Care Teams Patternmaker Metal Bench Relationship Specialty Start Date End Date Name, MD Leland [address] [place] [address] PCP - General Family Medicine 08/26/15 documented as of this encounter
--- OUTSIDE RECORDS SUMMARY | 2025-02-15 15:35 | XMS_ITS | Encounter Summary ---
Author Organization [employer] Address [address] [facility] 7t [place] [address] Care Team Providers Care Trolley Car Mechanic Name Role Phone Name, Leland MIMS Primary Care Provider [phone] Reason for Visit * Reason Onset Date Comments Call Back Request 10/05/2024 Encounter Details Date Type Department Care Team ([facility] st Contact Info) Description 10/05/2024 Telephone [facility] [address] [place] [address] Name, MD Leland [address] [place] [address] Call Back Request Social History Tobacco Use [...] 32 PM EDT Sexual Orientation Asexual 12/08/2023 1 :32 PM EDT documented as of this encounter Miscellaneous Notes * Telephone Encounter - Iris Lawson RN - 10/05/2024 4:41 PM EDT Triage call with [facility] [place] [id number] Pt is calling in regards to concerns that Pt is diabetic. Pt does have dx of impaired glucose intolerance. Pt reports an open area behind left knee that has never healed and an ulcer . It is unclearto screenplay writer if this is a wound that is [...] 10/05/2024 4:01 PM EDT Called pt. Via [employer] data services developer [phone] Lorenzo Fraga. Triage nurse notified me that she is currently on phone with pt. No answer as pt. Is on other line. * Telephone Encounter - Loi Cobos - 10/05/2024 3:40 PM EDT TC from pt returning call regarding prior message. Contact pt at [phone] * Telephone Encounter - Vic Finnegan - [...] has not yet been contacted by the facility.High Pressure Firer does not see referral in system; pt states that his condition is worsening. ( Denied triage ) Please return call [phone] (BENINESE) documented in this encounter Plan of Treatment Upcoming Encounters Date Type Department Care Team (Late st Contact Info) Description 04/10/2025 3:30 PM EDT Office Visit [facility] [address] [place] [address] Name, MD Leland [address] [place] [address] documented as of this encounter Visit Diagnoses Not on filedocumented in this encounter Additional Health Concerns Assessment Noted Time PHQ-9 Depression Total Score: 0 09/14/19 24 3:10 PM EDT documented as of this encounter Care Teams Trolley Car Mechanic Relationship Specialty Start Date End Date Name, [place] [address] PCP - General Family Medicine 08/26/15 documented as of this encounter
--- OUTSIDE RECORDS SUMMARY | 2025-02-15 15:35 | XMS_ITS | Encounter Summary ---
Author Organization [employer] Address [address] [facility] [address] 7t [place] [address] Care Team Providers Care Table Cover Folder Name Role Phone Name, Leland MIMS Primary Care Provider [phone] Reason for Visit * Reason Comments Med Refill Encounter Details Date Type Department Care Team ([facility] st Contact Info) Description 09/23/2023 Refill [facility] [address] [place] [address] Ila Lora MD [address] [place], [place] [phone] Social History Tobacco Use Types Packs/Day Years [...] Visit [facility] [address] [place] [address] Name, MD Leland [address] [place] [address] documented as of this encounter Visit Diagnoses Not on filedocumented in this encounter Additional Health Concerns Assessment Noted Time PHQ-9 Depression Total Score: 0 09/14/19 24 3:10 PM EDT documented as of this encounter Care Teams Table Cover Folder Relationship Specialty Start Date End Date NameLeland MD [address] [place] [address] PCP - General Family Medicine 08/26/15 documented as of this encounter
== END 2025-02-15 15:32 | disposition home or self-care (01) ==
LOC: HO.HHCX 15:31
PROVIDERS: Visit Provider Nurse Practitioner Family
DX: M25.511 Pain in right shoulder (principal)
CPT/HCPCS: 73030

== ENCOUNTER → 2025-02-15 15:31 | Outpatient (BNV) | payer OTHER, SELFPAY | PROVIDERS: Visit Provider Radiology Diagnostic Radiology | DX: M25.511 Pain in right shoulder (principal) | CPT/HCPCS: 73030 ==

== ENCOUNTER 2025-03-07 06:32 | Outpatient (REF) | payer OTHER, SELFPAY ==
--- OUTSIDE RECORDS SUMMARY | 2024-08-02 10:45 | XMS_ITS ---
Author Organization [facility] Address [address] [place] [address] Care Team Providers Care Motor Vehicle Light Assembler Name Role Phone Name Leland MIMS Primary Care Provider UnavailAlex Naqvimie Unavailable [phone] Nalini Dyer Unavailable [phone] Encounters Encounter Location Date Provider Diagnosis [address] [address] 08/02/2024 Nalini Dyer Plan Of Treatment Next Appt Details Provider Name:Nalini addison, 04/22/2025 03:00:00 PM, [address] [place] [address], [phone], Progress Notes * Jaren MCLAUGHLNIsDOB: 3 (59 yo M)Acc No.[id number]:08/02/2024 Progress Note Patient: Kedar SALEEMsus Provider: Elmer Dyer DPM :1965 A ge:59 Y S ex:Male Date:08/02/2024 Address:[address] [place], [place] [id number] Pcp:Leland Brandon MD Subjective: * Chief Complaints: [...] 08/02/2024 Generated for Luisa john/Alexandrea/Clayton on: 0 03/07/2025 06:42 AM EDT
--- OUTSIDE RECORDS SUMMARY | 2025-03-04 18:00 | XMS_ITS | Encounter Summary ---
Author Organization [employer] Address [address] [facility] [address] 7t [place] [address] Care Team Providers Care Lead Inspector Name Role Phone Name, Leland MIMS Primary Care Provider [phone] Encounter Details Date Type Department Care Team (Late st Contact Info) Description 03/04/2025 6:00 PM EDT Office Visit [facility] 230 [place] [address] Lazarus Macias MD 505 [place] [address] Complaint of nasal congestion (Primary Dx); Acute sinusitis with symptoms > 10 days; Hypertension, unspecified type Social History Tobacco Use Types [...] Sign Reading Time Taken Comments Blood Pressure 102/50 03/04/2025 5:43 PM EDT Pulse 66 03/04/2025 5:43 PM EDT Temperature 36.3 C (97.4 F) 03/04/2025 5:43 PM EDT Respiratory Rate 20 03/04/2025 5:43 PM EDT Oxygen Saturation - - Inhaled Oxygen Concentration - - Weight 132 kg (292 lb) 03/04/2025 5:43 PM EDT Height - - Body Mass Index 39.6 01/25/2025 9:30 AM EDT documented in this encounter Progress Notes * Lazarus Macias MD - 03/04/2025 6:00 PM EDT SUBJECTIVE Steven Singh is a 59 y.o. male who presents for No chief complaint on file.. HPI Note from triage reviewed: T/C to pt for triage based on message below via BLS Sanitation Manager Zac #[id number]. Pt reports that periodically during the day he feels that his nose is blocked and he needs to breathe out of his mouth. Reports that at night he wakes up every day at night feeling like he is drowning. Denies fever, cough. Also reports pmh of spinal injection that did not work. Reports that he is starting to fold andthat walking is now difficult for him. Pt also requesting a motorized scooter due to difficulty walking. Recommended in person evaluation. Pt agrees to come to [facility] for evaluation either this evening or tomorrow. History confirmed. 10 days history of nasal congestion. Unclear trigger. No associated fever or other constitutional symptoms. No treatment tried. Problem List[1] Allergies[2] Medications Ordered Prior to Encounter[3] Review of Systems Constitutional: Negative for appetite change, chills and diaphoresis. HENT: Positive for congestion. Respiratory: Negative for cough, choking and shortness of breath. Cardiovascular: Negative for leg swelling. Gastrointestinal: Negative for anal bleeding and blood in stool. Musculoskeletal: Negative for back pain and gait problem. OBJECTIVE Vitals: 03/04/25 1743 BP: 102/50 BP Location: Left arm Patient Position: Sitting BP Cuff Size: Adult Pulse: 66 Resp: 20 Temp: 97.4 ??F (36.3 ??C) TempSrc: Oral Weight: 292 lb (132 kg) Physical Exam Constitutional: General: He is not in acute distress. Appearance: Normal appearance. He is obese. He is not ill-appearing, toxic- appearing or diaphoretic. HENT: Nose: Left Turbinates: Enlarged. Left Sinus: Maxillary sinus tenderness present. Neurological: Mental Status: He is alert. Assessment/Plan Assessment/Plan Diagnoses and all orders for this visit: Complaint of nasal congestion - amoxicillin-clavulanate (Augmentin) 875-125 MG tablet; Take 1 tablet by mouth 2 times daily for 10 days. - XR Paranasal Sinuess 3+ Views; Future - guaiFENesin (Mucinex) 600 MG 12 hr tablet; Take 2 tablets (1,200 mg) by mouth 2 times daily. Do not crush, chew, or split. - dexAMETHasone (Decadron) 4 MG tablet; Take 1 tablet (4 mg) by mouth Once per day for 3 days. Acute sinusitis with symptoms > 10 days - amoxicillin-clavulanate (Augmentin) 875-125 MG tablet; Take 1 tablet by mouth 2 times daily for 10 days. - XR Paranasal Sinuess 3+ Views; Future - guaiFENesin (Mucinex) 600 MG 12 hr tablet; Take 2 tablets (1,200 mg) by mouth 2 times daily. Do not crush, chew, or split. - CBC auto differential; Future - dexAMETHasone (Decadron) 4 MG tablet; Take 1 tablet (4 mg) by mouth Once per day for 3 days. Hypertension, unspecified type Other orders - lisinopril 5 MG tablet; Take 1 tablet (5 mg) by mouth Once per day. Blood pressure is on the low side. Patient advised to decrease the dose of his lisinopril to 5 mg He is to follow-up with his PCP in 2 weeks or sooner if no improvement. [1] Patient Active Problem List Diagnosis Acute deep [...] Chronic narcotic use Nocturnal enuresis Opioid dependence ([facility]/HCC) Obstructive sleep apnea syndrome Neurogenic claudication due to lumbar spinal stenosis Recurrent deep vein thrombosis ([facility]/HCC) Recurrent major depression in partial remission (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 Cigarette smoker Guttate psoriasis Hard of hearing Knee pain Impaired glucose tolerance Posttraumatic stress disorder Total perforation of tympanic membrane Refractive error Exotropia, right eye assisted (current) use of opiate analgesic Hammer toe of right foot Neuropathy Other acquired deformities of left foot Dyspnea on exertion Connell's cyst of knee, right Claustrophobia Cellulitis Low back pain due to bilateral sciatica Chronic prescription opiate use Presence of IVC filter Edema of right lower extremity Acute pain of right shoulder Left leg pain 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 Blood Pressure kit 1 Device Once per day. 1 kit 0 Diclofenac Sodium 1 % gel APPLY 2 GRAMS TO AFFECTED AREA(S) TWICE DAILY 100 g 0 docusate sodium (Colace) 100 MG capsule TAKE 1 CAPSULE BY MOUTH TWICE A DAY 180 capsule 3 DULoxetine (Cymbalta) [address] capsule Take 1 capsule (30 mg) by mouth 2 times daily. Do not crush or chew. 60 capsule 11 Elastic Bandages & Supports (Medical Compression Stockings) misc 15-20 mmHg Dx chronic venous insufficiency, recurrent ulcers (L98.499) 1 each 2 gabapentin (Neurontin) 800 MG tablet TAKE 1 TABLET BY MOUTH THREE TIMES DAILY 90 tablet 3 lidocaine (Lidoderm) 5 % patch Apply 1 patch topically Once per day. Remove & discard patch within 12 hours or as directed by MD. 30 patch 2 lisinopril 10 MG tablet Take 1 tablet (10 mg) by mouth Once per day. 90 tablet 1 methadone (Dolophine) 10 MG/5ML solution 105 mg once a day Misc. Devices (Pulse Oximeter) misc to check oxygen mometasone (Elocon) 0.1 % ointment Apply topically Once per day. APPLY TOPICALLY EVERY DAY IN THE MORNING 45 g 3 Naloxone HCl (NARCAN NA) Administer into affected nostril(s). 0.1mg intra-nasal route in one nostril, may repeat every two to three minutes as needed, alternating nostrils with each dose propranolol (Inderal) 80 MG tablet Take 1 tablet by mouth 2 times daily. sennosides (Senokot) 8.6 MG tablet take 1 tablet by oral route 2 times every day as needed for constipation Silver (SilvaSorb) gel Apply to ulcer on the left leg tamsulosin (Flomax) 0.4 MG 24 hr capsule Take 1 capsule by mouth Once per day. tiZANidine (Zanaflex) 4 MG tablet Take 1 tablet (4 mg) by mouth every 8 (eight) hours if needed formuscle spasms for up to 20 days. 60 tablet 0 Varenicline Tartrate, Starter, (Chantix Starting Month ) 0.5 MG X 11 & 1 MG X 42 tablet therapy pack Take 0.5 mg by mouth Once daily for 3 days, THEN 0.5 mg 2 times daily for 4 days, THEN 1 mg2 times daily for 21 days. 53 each 0 Xarelto 20 MG tablet Take 1 tablet (20 mg) by mouth with evening meal. 30 tablet 11 zolpidem (Ambien) 10 MG tablet Take 1 tablet (10 mg) by mouth if needed at bedtime for sleep. 28 tablet 0 [DISCONTINUED] zolpidem (Ambien) 10 MG tablet Take 1 tablet (10 mg) by mouth if needed at bedtime for sleep. Do not start before February 01, 2025. 28 tablet 0 No current facility-administered medications on file prior to visit. documented in this encounter Plan of Treatment Upcoming Encounters Date Type Department Care Team (Late st Contact Info) Description 04/10/2025 3:30 PM EDT Office Visit [facility] [address] [place] [address] Name, MD Leland [address] [place] [address] Scheduled Orders Name Type Priority Associated Diagnoses Orde r Schedule XR Paranasal Sinuess 3+ Views Imaging Routine Complaint of nasal congestion Acute sinusitis with symptoms > 10 days Expected: 03/04/2025, Expires: 03/04/2026 CBC auto differential Lab Routine Acute sinusitis with symptoms > 10 days Expected: 03/04/2025 (Approximate), Expires: 03/04/2026 documented as of this encounter Visit Diagnoses Diagnosis Complaint of nasal congestion- Primary Acute sinusitis with symptoms > 10 days Hypertension, unspecified type documented in this encounter Additional Health Concerns Assessment Noted Time PHQ-9 Depression Total Score: 0 09/14/19 24 3:10 PM EDT documented as of this encounter Care Teams Lead Inspector Relationship Specialty Start Date End Date NameLeland MD [address] [place] [address] PCP - General Family Medicine 08/26/15 documented as of this encounter
--- NOTE | ~2025-03-07 | FL_ITS ---
EXAMINATION: FL GUIDANCE ONLY HISTORY: M53.3 - Sacrococcygeal disorders, not elsewhere classified COMPARISON: None available. TECHNIQUE: Fluoroscopy time: 19 seconds. Cumulative Dose: 4.50 mGy. DAP: 82.14 uGym2 Images: 3. FINDINGS: Fluoroscopic spot films of the left hemipelvis demonstrate a needle in the region of the sacroiliac joint. FL/FL guidance in treatment room IMPRESSION: Fluoroscopy during procedure. Please see procedure report for additional information. Electronically signed by: Cristian Herron MD 03/07/2025 02:33 PM EDT
--- OUTSIDE RECORDS SUMMARY | 2025-03-07 06:42 | XMS_ITS | Encounter Summary ---
Author Organization [employer] Address [address] [facility] 7t [place] [address] Care Team Providers Care Data Entry Processor Name Role Phone Name, Leland MIMS Primary Care Provider [phone] Reason for Visit * Reason Comments Med Refill Encounter Details Date Type Department Care Team ([facility] st Contact Info) Description 06/20/2023 Refill [facility] [address] [place] [address] Name, MD Leland 230 [place], [place] [phone] Insomnia, unspecified type Social History Tobacco Use [...] t he electric, gas, oil or water [employer] threatened to shut off services in your [...] Description 04/10/2025 3:30 PM EDT Office Visit [facility]INE [address] [place] [address] Name, MD Leland [address] [place] [address] documented as of this encounter Visit Diagnoses Diagnosis Insomnia, unspecified type documented in this encounter Additional Health Concerns Assessment Noted Time PHQ-9 Depression Total Score: 0 09/07/19 23 1:16 PM EDT documented as of this encounter Care Teams Data Entry Processor Relationship Specialty Start Date End Date Name, MD Leland [address] [place] [address] PCP - General Family Medicine 08/26/15 documented as of this encounter
--- OUTSIDE RECORDS SUMMARY | 2025-03-07 06:42 | XMS_ITS | Encounter Summary ---
Author Organization [employer] Address [address] [facility] 7t [place] [address] Care Team Providers Care Earth Mover Name Role Phone Name, Leland MIMS Primary Care Provider [phone] Encounter Details Date Type Department Care Team (Late st Contact Info) Description 07/19/2023 Abstract [facility] [address] [place], [place] [phone] Name, MD Leland [address] [place], [place] [phone] Social History Tobacco Use Types Packs/Day Years [...] Description 04/10/2025 3:30 PM EDT Office Visit [facility] [address] [place] [address] NameLeland MD [address] [place] [address] documented as of this encounter Procedures Procedure [...] documented as of this encounter Care Teams Earth Mover Relationship Specialty Start Date End Date Name, MD Leland [address] [place] [address] PCP - General Family Medicine 08/26/15 documented as of this encounter
--- OUTSIDE RECORDS SUMMARY | 2025-03-07 06:42 | XMS_ITS | Encounter Summary ---
Author Organization [employer] Address [address] [facility] 7t [place] [address] Care Team Providers Care Manager Customer Name Role Phone Name, Leland MIMS Primary Care Provider [phone] Reason for Visit * Reason Onset Date Comments Med Refill 01/02/2024 Encounter Details Date Type Department Care Team ([facility] st Contact Info) Description 01/02/2024 Telephone [facility] [address] [place] [address] Name, MD Leland [address] [place], [place] [phone] Med Refill Social History Tobacco Use Types [...] 10 MG tablet To be sent to: [facility] [place], [place] - [address] [place] [address] documented in this encounter Plan of Treatment Upcoming Encounters Date Type Department Care Team ([facility] st Contact Info) Description 04/10/2025 3:30 PM EDT Office Visit [facility] [address] [place] [address] Name, MD Leland [address] [place] [address] documented as of this encounter Visit Diagnoses Not on filedocumented in this encounter Additional Health Concerns Assessment Noted Time PHQ-9 Depression Total Score: 0 09/14/19 24 3:10 PM EDT documented as of this encounter Care Teams Manager Customer Relationship Specialty Start Date End Date Name, MD Leland [address] [place] [address] PCP - General Family Medicine 08/26/15 documented as of this encounter
--- OUTSIDE RECORDS SUMMARY | 2025-03-07 06:42 | XMS_ITS | Encounter Summary ---
Author Organization [employer] Address [address] [facility] 7t [place] [address] Care Team Providers Care Faucets Assembler Name Role Phone Name, Leland MIMS Primary Care Provider [phone] Reason for Visit * Reason Onset Date Comments Med Refill 07/28/2023 Encounter Details Date Type Department Care Team ([facility] st Contact Info) Description 07/28/2023 Telephone [facility] [address] [place] [address] Name, MD Leland [address] [place], [place] [phone] Med Refill Social History Tobacco Use Types [...] Vogt LPN - 07/28/2023 11:52 AM EST DOCUMENT EXAMINER checked 07/28/23 last filled on 06/17/23 refill 2/3 patient should have 1 refill left. * Telephone Encounter - Hailee Louie - 07/28/2023 11:08 AM EST TC from pt requesting medication refill. Medications needing refill : gabapentin (Neurontin) 800 MG tablet To be sent to: [facility] [place] MD - [address] [place] [address] documented in this encounter Plan of Treatment Upcoming Encounters Date Type Department Care Team (Late st Contact Info) Description 04/10/2025 3:30 PM EDT Office Visit [facility] [address] [place] [address] Name, MD Leland [address] [place] [address] documented as of this encounter Visit Diagnoses Not on filedocumented in this encounter Additional Health Concerns Assessment Noted Time PHQ-9 Depression Total Score: 0 09/07/19 23 1:16 PM EDT documented as of this encounter Care Teams Faucets Assembler Relationship Specialty Start Date End Date Name, MD Leland [address] [place] [address] PCP - General Family Medicine 08/26/15 documented as of this encounter
--- OUTSIDE RECORDS SUMMARY | 2025-03-07 06:42 | XMS_ITS | Encounter Summary ---
Author Organization [employer] Address [address] [facility] 7t [place] [address] Care Team Providers Care Drafter (Cad) Electronic Name Role Phone Name, Leland MIMS Primary Care Provider [phone] Encounter Details Date Type Department Care Team ([facility] Contact Info) Description 11/22/[address] [phone] Name, MD Leland [address] [place] [address] [phone] Social History Tobacco Use Types Packs/Day Years [...] Upcoming Encounters Date Type Department Care Team ([facility] Contact Info) Description 04/10/2025 3:30 PM EDT Office Visit [facility] [address] [place] [address] Name, MD Leland [address] [place] [address] documented as of this encounter Visit Diagnoses Not on filedocumented in this encounter Additional Health Concerns Assessment Noted Time PHQ-9 Depression Total Score: 0 09/07/19 23 1:16 PM EDT documented as of this encounter Care Teams Drafter (Cad) Electronic Relationship Specialty Start Date End Date Name, MD Leland [address] [place] [address] PCP - General Family Medicine 08/26/15 documented as of this encounter
--- OUTSIDE RECORDS SUMMARY | 2025-03-07 06:42 | XMS_ITS | Encounter Summary ---
Author Organization [employer] Address [address] [facility] 7t [place] [address] Care Team Providers Care Antisqueak Applier Name Role Phone Name, Leland MIMS Primary Care Provider [phone] Reason for Visit * Reason Onset Date Comments Nurse Triage 08/06/2024 Encounter Details Date Type Department Care Team ([facility] st Contact Info) Description 08/06/2024 Telephone [facility] [address] [place], [place] [phone] Name, MD Leland [address] [place] [address] Nurse Triage Social History Tobacco Use Types [...] 08/06/2024 3:03 PM EST Triage call with [facility] retail solar advisor [place] [id number] Pt is called several times and call [...] Description 04/10/2025 3:30 PM EDT Office Visit [facility] [address] [place] [address] Name, MD Leland [address] [place] [address] documented as of this encounter Visit Diagnoses Diagnosis Osteoarthritis of right ankle and foot Swelling of lower limb documented in this encounter Additional Health Concerns Assessment Noted Time PHQ-9 Depression Total Score: 0 09/14/19 24 3:10 PM EDT documented as of this encounter Care Teams Antisqueak Applier Relationship Specialty Start Date End Date Name, MD Leland [address] [place] [address] PCP - General Family Medicine 08/26/15 documented as of this encounter
--- OUTSIDE RECORDS SUMMARY | 2025-03-07 06:42 | XMS_ITS | Encounter Summary ---
Author Organization [employer] Address [address] [facility] 7t [place] [address] Care Team Providers Care Soft Mud Molder Name Role Phone Name, Leland MIMS Primary Care Provider [phone] Reason for Visit * Reason Comments Med Refill Encounter Details Date Type Department Care Team ([facility] st Contact Info) Description 01/28/2025 Refill [facility] [address] [place], [place] [phone] Sonia Treviño, ANP [address] [place], [place] [phone] Insomnia, unspecified type Social History Tobacco Use [...] Visit [facility] [address] [place] [address] NameLeland MD [address] [place] [address] documented as of this encounter Visit Diagnoses Diagnosis Insomnia, unspecified type documented in this encounter Additional Health Concerns Assessment Noted Time PHQ-9 Depression Total Score: 0 09/14/19 24 3:10 PM EDT documented as of this encounter Care Teams Soft Mud Molder Relationship Specialty Start Date End Date NameLeland MD [address] [place] [id number] PCP - General Family Medicine 08/26/15 documented as of this encounter
--- OUTSIDE RECORDS SUMMARY | 2025-03-07 06:42 | XMS_ITS | Encounter Summary ---
Author Organization [employer] Address [address] [facility] 7t [place] [address] Care Team Providers Care Chemistry Technician Name Role Phone Name, Leland MIMS Primary Care Provider [phone] Reason for Visit * Reason Onset Date Comments Call Back Request 08/30/2024 Encounter Details Date Type Department Care Team ([facility] st Contact Info) Description 08/30/2024 Telephone [facility] [address] [place] [address] Name, MD Leland [address] [place] [address] Call Back Request Social History Tobacco Use [...] walks with no problem due to procedure. Chilean speaker documented in this encounter Plan of Treatment Upcoming Encounters Date Type Department Care Team (Late st Contact Info) Description 04/10/2025 3:30 PM EDT Office Visit [facility] [address] [place] [address] Name, MD Leland [address] [place] [address] documented as of this encounter Visit Diagnoses Not on filedocumented in this encounter Additional Health Concerns Assessment Noted Time PHQ-9 Depression Total Score: 0 09/14/19 24 3:10 PM EDT documented as of this encounter Care Teams Chemistry Technician Relationship Specialty Start Date End Date Name, MD Leland [address] [place] [address] PCP - General Family Medicine 08/26/15 documented as of this encounter
--- OUTSIDE RECORDS SUMMARY | 2025-03-07 06:42 | XMS_ITS | Encounter Summary ---
Author Organization [employer] Address [address] 7[address] [place] [address] Care Team Providers Care Mirror Painter Name Role Phone Name, Leland MIMS Primary Care Provider [phone] Reason for Visit * Reason Comments Med Refill Encounter Details Date Type Department Care Team ([facility] st Contact Info) Description 09/23/2023 Refill [facility] [address] [place] [address] Ila Lora MD [address] [place], [place] [phone] Social History Tobacco Use Types Packs/Day Years [...] Description 04/10/2025 3:30 PM EDT Office Visit [facility] [address] [place] [address] Name, MD Leland [address] [place] [address] documented as of this encounter Visit Diagnoses Not on filedocumented in this encounter Additional Health Concerns Assessment Noted Time PHQ-9 Depression Total Score: 0 09/14/19 24 3:10 PM EDT documented as of this encounter Care Teams Mirror Painter Relationship Specialty Start Date End Date NameLeland MD [address] [place] [address] PCP - General Family Medicine 08/26/15 documented as of this encounter
--- OUTSIDE RECORDS SUMMARY | 2025-03-07 06:42 | XMS_ITS | Encounter Summary ---
Author Organization [employer] Address [address] [facility] 7t [place] [address] Care Team Providers Care Forest Technician Name Role Phone Name, Leland MIMS Primary Care Provider [phone] Reason for Visit * Reason Comments Med Refill Encounter Details Date Type Department Care Team (Late Contact Info) Description 02/21/2023 Refill [facility] [address] [place] [address] [phone] NameLeland MD [address] [place] [address] [phone] Insomnia, unspecified type Social History Tobacco Use [...] 04/10/2025 3:30 PM EDT Office Visit [facility] [address] [place] [address] [phone] Name, MD Leland [address] [place] [address] [phone] documented as of this encounter Visit Diagnoses Diagnosis Insomnia, unspecified type documented in this encounter Additional Health Concerns Assessment Noted Time PHQ-9 Depression Total Score: 0 09/07/19 23 1:16 PM EDT documented as of this encounter Care Teams Forest Technician Relationship Specialty Start Date End Date Name, MD Leland [address] [place] [address] PCP - General Family Medicine 08/26/15 documented as of this encounter
--- OUTSIDE RECORDS SUMMARY | 2025-03-07 06:42 | XMS_ITS | Encounter Summary ---
Author Organization [employer] Address [address] [facility] 7t [place] [address] Care Team Providers Care Weaver Hand Loom Name Role Phone Name, Leland MIMS Primary Care Provider Encounter Details Date Type Department Care Team (Late st Contact Info) Description 03/24/2023 Telephone [facility] [address] [place], [place] [phone] Name, MD Leland [address] [place] [address] Social History Tobacco Use Types Packs/Day Years [...] advise PCP pt is currently admitted to [facility] and was found with blood clots to both legs. Any questions, contact pt at [phone] documented in this encounter Plan of Treatment Upcoming Encounters Date Type Department Care Team (Late st Contact Info) Description 04/10/2025 3:30 PM EDT Office Visit [facility] [address] [place] [phone] Name, MD Leland [address] [place] [address] documented as of this encounter Visit Diagnoses Not on filedocumented in this encounter Additional Health Concerns Assessment Noted Time PHQ-9 Depression Total Score: 0 09/07/19 23 1:16 PM EDT documented as of this encounter Care Teams Weaver Hand Loom Relationship Specialty Start Date End Date Name, MD Leland [address] [place] [id number] PCP - General Family Medicine 08/26/15 documented as of this encounter
--- OUTSIDE RECORDS SUMMARY | 2025-03-07 06:43 | XMS_ITS | Encounter Summary ---
Author Organization [employer] Address [address] [facility] 7t [place] [address] Care Team Providers Care Vending Machine Attendant Name Role Phone Name, Leland MIMS Primary Care Provider [phone] Reason for Visit * Reason Onset Date Comments telephone call 03/04/2025 Encounter Details Date Type Department Care Team ([facility] st Contact Info) Description 03/04/2025 Telephone [facility] [address] [place], [place] [phone] Name, MD Leland [address] [place] [address] telephone call Social History Tobacco Use Types Packs/Day Years [...] encounter Miscellaneous Notes * Telephone Encounter - Lili Cox RN - 03/04/2025 4:36 PM EDT T/C to pt for triage based on message below via [employer]oak Room Attendant Zac #[id number]. Pt reports that periodically during the day he feels that his nose is blocked and he needs to breathe out of his mouth. Reports that at night he wakes up every day at night feeling like he is drowning. Denies fever, cough. Also reports pmh of spinal injection that did not work. Reports that he is starting to fold and that walking is now difficult for him. Pt also requesting a motorized scooter due to difficulty walking. Recommended in person evaluation. Pt agrees to come to [facility] for evaluation either this evening or tomorrow. * Telephone Encounter - Pavithra Salgado - 03/04/2025 3:03 PM EDT Pt walked in requesting a sooner appointment with pcp because he has been having a lot of back paindue to him having to haunch more and its affecting his breathing. Best contact number is [phone] documented in this encounter Plan of Treatment Upcoming Encounters Date Type Department Care Team (Late st Contact Info) Description 04/10/2025 3:30 PM EDT Office Visit [facility] MED[facility] [address] [place] [phone] Name, MD Leland [address] [place] [address] documented as of this encounter Visit Diagnoses Not on filedocumented in this encounter Additional Health Concerns Assessment Noted Time PHQ-9 Depression Total Score: 0 09/14/19 24 3:10 PM EDT documented as of this encounter Care Teams Vending Machine Attendant Relationship Specialty Start Date End Date Name, MD Leland [address] [place] [address] PCP - General Family Medicine 08/26/15 documented as of this encounter
--- OUTSIDE RECORDS SUMMARY | 2025-03-07 06:43 | XMS_ITS | Clinical Summary ---
Author Organization [facility] Address [address] [place] [address] Care Team Providers Care Rewriter Name Role Phone No, Pcp Primary Care [...] patient's age to complete this topic Insurance [facility] Care Teams Rewriter Relationship Specialty Start Date End Date No, Pcp HIREN PCP - General 01/29/22
--- OUTSIDE RECORDS SUMMARY | 2025-03-07 06:43 | XMS_ITS | Encounter Summary ---
Author Organization [employer] Address [address] [facility] 7t [place] [address] Care Team Providers Care Inspector Soldering Name Role Phone Name, Leland MIMS Primary Care Provider [phone] Reason for Visit * Reason Onset Date Comments Call Back Request 10/05/2024 Encounter Details Date Type Department Care Team ([facility] st Contact Info) Description 10/05/2024 Telephone [facility] [address] [place] [address] Name, MD Leland [address] [place] [address] Call Back Request Social History Tobacco Use [...] 10/05/2024 4:41 PM EDT Triage call with [facility] Supervisor Packing ID [id number] Pt is calling in regards to concerns that Pt is diabetic. Pt does have dx of impaired glucose intolerance. Pt reports an open area behind left knee that has never healed and an ulcer . It is unclearto conventional mortgage underwriter if this is a wound that [...] 10/05/2024 4:01 PM EDT Called pt. Via eTelemetry nursing administrator [phone] [address] Fraga. Triage nurse notified me that she is currently on phone with pt. No answer as pt. Is on other line. * Telephone Encounter - Loi Cobos - 10/05/2024 3:40 PM EDT TC from pt returning call regarding prior message. Contact pt at [phone] * Telephone Encounter - Vic Finnegan - [...] has not yet been contacted by the facility.Hog Ringer does not see referral in system; pt states that his condition is worsening. ( Denied triage ) Please return call [phone] (TUNISIAN) documented in this encounter Plan of Treatment Upcoming Encounters Date Type Department Care Team (Late st Contact Info) Description 04/10/2025 3:30 PM EDT Office Visit [facility] [address] [place] [address] Name, MD Leland [address] [place] [address] documented as of this encounter Visit Diagnoses Not on filedocumented in this encounter Additional Health Concerns Assessment Noted Time PHQ-9 Depression Total Score: 0 09/14/19 24 3:10 PM EDT documented as of this encounter Care Teams Inspector Soldering Relationship Specialty Start Date End Date Name, [place] [address] PCP - General Family Medicine 08/26/15 documented as of this encounter
--- OUTSIDE RECORDS SUMMARY | 2025-03-07 06:43 | XMS_ITS | Clinical Summary ---
Author Organization [employer] Address [address] [facility] 7t [place] [address] Care Team Providers Care Preschool Disability Teacher Name Role Phone Name, Leland MIMS Primary Care Provider [phone] Allergies No known active allergies Medications * [...] split. 100 tablet 1 11/05/2 024 Active Anoro Ellipta 62.5-25 MCG/ACT aerosol powder [...] mouth with evening meal. 30 tablet 11 025 2025 Active tiZANidine (Zanaflex) 4 MG [...] times daily for 21 days. 53 each Active zolpidem (Ambien) 10 MG tabletIndicatio ns:Insomnia, unspecified type Take 1 tablet (10 mg) by mouth if needed at bedtime for sleep. 28 tablet Active amoxicillin-cla vulanate (Augmentin) 875-125 MG tabletIndicatio ns:Complaint of nasal congestion,Acut e sinusitis with symptoms > 10 days Take 1 tablet by mouth 2 times daily for 10 days. 20 tablet 025 2024 Active guaiFENesin (Mucinex) 600 MG 12 hr tabletIndicatio ns:Complaint of nasal congestion,Acut e sinusitis with symptoms > 10 days Take 2 tablets (1,200 mg) by mouth 2 times daily. Do not crush, chew, or split. 120 tablet 11 025 2025 Active lisinopril 5 MG tablet Take 1 tablet (5 mg) by mouth Once per day. 30 tablet 11 025 2025 Active dexAMETHasone (Decadron) 4 MG tabletIndicatio ns:Complaint of nasal congestion,Acut e sinusitis with symptoms > 10 days Take 1 tablet (4 mg) by mouth Once per day for 3 days. 3 tablet Active lisinopril 10 MG tablet Take 1 tablet (10 mg) by mouth Once per day. 90 tablet 1 025 2024 Discontinued(D ose adjustment) zolpidem (Ambien) 10 MG tabletIndicatio ns:Insomnia, unspecified type Take 1 tablet (10 mg) by mouth if needed at bedtime for sleep. Do not start before February 01, 2025. 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 02/15/2025 Assessment & Plan (02/15/2025 4:18 PM EDT): Edema of right lower extremity 12/11/2024 Assessment [...] not a good medication to take for long-term due to side effects (weight gain, osteoporosis, [...] twice a day for 10 days I assistant counsel patient that if problem persists or is [...] the hospital, case was presented to [facility] I let them know patient should have a CTA to r/o pulmonary embolism Connell's cyst of knee, right 02/07/2024 Assessment & Plan (02/07/2024 3:06 PM EDT): I will refer him to orthopedics to address his pain Hammer toe of right foot 03/29/2023 023 Neuropathy 03/29/2023 03/29/2023 Other acquired deformities of left foot 03/29/20 23 03/29/2023 retirement (current) use of opiate analgesic 03/1303/23/2023 Overview [...] care -pt had yesterday referral for DANNY HANSEN Recurrent deep vein thrombosis 09/06/2017 Depressive disorder [...] difficulty w his meds-does get help from [facility] ,states has VNA monthly -prescribed BP machine today and advised pt to monitor w Blue team staff air defense officer in 2 weeks -requested to RN team [...] decreased range of motion. Patient follows at [facility] and has been treated with injections [...] Encounters Date Type Department Care Team Description 03/04/2025 6:00 PM EDT Office Visit [facility] [address] [place] [address] 24927 Lazarus Macias MD Complaint of nasal congestion (Primary Dx); Acute sinusitis with symptoms > 10 days; Hypertension, unspecified type 03/04/2025 Travel 03/04/2025 Telephone [facility] [address] [place] [address] Leland Brandon MD telephone call 03/04/2025 Refill [facility] [address] [place] [address] Leland Brandon MD Insomnia, unspecified type 02/20/2025 Telephone [facility] [address] [place] [address] 22370 Kelsi Huff, ANNITA 02/20/2025 Refill [facility] [address] [place] [address] Leland Brandon MD 02/19/2025 Telephone [facility] [address] [place] [address] 245[address] Leland Brandon MD Medication Question 02/15/2025 2:40 PM EDT Office Visit [facility] [place] [address] Ana Larios NP Acute pain of right shoulder (Primary Dx); Left leg pain; Osteoarthritis of left shoulder due to rotator cuff injury 02/15/2025 Travel 02/15/2025 Telephone [facility] [address] [place], [place] [address]danny [place] [address] Leland Brandon MD authroization 01/29/2025 Telephone [facility] [address] [place] [address] 230[address] Leland Brandon MD Referral 01/29/2025 Refill [facility] [address] [place] [address] 44555 Leland Brandon MD Insomnia, unspecified type 01/28/2025 Refill [facility] [address] [place] [address] 98129 Sonia Treviño ANP Insomnia, unspecified type 01/25/2025 9:30 AM EDT Office Visit [facility] [address] [place], [place] [address]d[place] [address] Leland Brandon MD Dyspnea on exertion (Primary Dx); Hypoxia; Tobacco dependence syndrome; Chronic pain syndrome; Low back pain due to bilateral sciatica; Gait difficulty 01/25/2025 Telephone [facility] [address] [place] [address] 52921 Leland Brandon MD 01/25/2025 Travel 01/24/2025 Telephone [facility] [address] [place] [address] 34692 Lashae West MA chart prep 01/18/2025 Telephone [facility] [address] [place] [address] 18164 Lashae West [place] ocotber recalls 01/14/2025 Patient Outreach [facility] [address] [place] [phone] Leland Brandon MD Transition Of Care (Tcm) (HDF- ) 01/03/2025 Refill [facility] [address] [place] [address] 11307 Leland Brandon MD Chronic pain syndrome; Insomnia, unspecified type 01/01/2025 Telephone [facility] [address] [place] [address] Leland Brandon MD Referral 12/11/2024 1:40 PM EDT Office Visit [facility] [address] [place] [address] Stacey Wade MD Hypertension, unspecified type (Primary Dx); Edema of right lower extremity; Low back pain due to bilateral sciatica; Chronic pain syndrome 12/11/2024 Orders Only [facility] External Provider, [facility] 12/11/2024 Travel 12/10/2024 Telephone [facility] [address] [place] [address] Leland Brandon MD Nurse Triage 12/07/2024 Telephone [facility] [address] [place] [address] Chrissie Cosme NP 12/06/2024 Refill [facility] [address] [place], [place] [phone] Leland Brandon MD Insomnia, unspecified type from Last 3 Months Immunizations Immunization Administration [...] 20 03/04/2025 5:43 PM EDT Oxygen Saturation 94% 02/15/2025 2:52 PM EDT Inhaled Oxygen Concentration - - Weight 132 kg (292 lb) 03/04/2025 5:43 PM EDT Height 182.9 cm (6') 01/25/2025 9:30 AM EDT Body Mass Index 39.6 01/25/2025 9:30 AM EDT Plan of Treatment Upcoming Encounters Date Type Department Care Team (Late st Contact Info) Description 04/10/2025 3:30 PM EDT Office Visit [facility] [address] [place] [address] Name, MD Leland [address] [place] [address] Health Maintenance Due Date Last Done Comments [...] Alcohol/Substance Use Screening 11/16/2025 11/16/2024 Tobacco Screening 03/04/2026 03/04/2025 DTaP/Tdap/Td Vaccines (2 - Td or Tdap) [...] Name Priority Date/Time Associated Diagnosis Comments XR SHOULDER 2+ VIEWS RIGHT Routine 02/15/2025 3:51 PM EDT Acute pain of right shoulder VASC US LOWER EXTREMITY VENOUS DUPLEX BILATERAL [...] virus) Need for hepatitis C screening test COLONOSCOPY Routine 07/14/2023 from Last 3 Months or Most Recently Relevant to Health Maintenance Results * XR Shoulder 2+ Views Right (02/15/2025 3:51 PM EDT) Anatomical Region Laterality Modality Upper Extremities, Shoulder Right Radi ographic Imaging 02/15/2025 3:51 PM EDT Narrative 02/15/2025 3:57 PM EDT [facility] [address] [place] [address] XRay Report Signed Patient: Steven Novak MR#: [id number] : 1965 Acct:[id number] Age/Sex: 59 / M ADM Date: 02/15/25 Loc: HO.HHCX Attending Dr: Ana Larios UTILIZATION MANAGEMENT NURSE Ordering Physician: Ana Larios NP Date of Service: 02/15/25 Procedure(s): XR shoulder RT min 2V Accession Number(s): [id number] cc: Ana Larios NP Reason for Exam: right arm unable to move, ? dislocation EXAMINATION: XR SHOULDER, RIGHT CLINICAL INFORMATION: right arm unable to move, ? dislocation COMPARISON: None available. TECHNIQUE: AP external rotation, Grashey, scapular Y, and axillary views of the right shoulder. FINDINGS: Sclerotic margins along the articular surface of the common clavicular joint. Small subchondral cyst formation greater tuberosity, right humerus. No acute cortical disruption or gross malalignment. No lytic or blastic lesions. XR/XR shoulder RT min 2V IMPRESSION: Mild degenerative changes, right shoulder. Electronically signed by: Santana Greer MD 02/15/2025 03:55 PM EDT Dictated By: Santana Cross MD Signed By: <Electronically signed by Santana Garvin MD in OV> 02/15/25 1555 DD/ 1551 TD/TT: 02/15/25 1551 Thoroughbred Horse Farm Manager: Procedure Note Donotuseinterpreter, Image - 02/15/2025 [facility] [address] [place] [address] XRay Report Signed Patient: Baron NovakR#: [id number] : 1965Acct:[id number] Age/Sex: 59 / MADM Date: 02/15/25 Loc: HO.HHCX Attending Dr: Ana Larios UTILIZATION MANAGEMENT NURSE Ordering Physician: Ana Larios NP Date of Service: 02/15/25 Procedure(s): XR shoulder RT min 2V Accession Number(s): [id number] cc: Ana Larios NP Reason for Exam: right arm unable to move, ? dislocation EXAMINATION: XR SHOULDER, RIGHT CLINICAL INFORMATION: right arm unable to move, ? dislocation COMPARISON: None available. TECHNIQUE: AP external rotation, Grashey, scapular Y, and axillary views of the right shoulder. FINDINGS: Sclerotic margins along the articular surface of the common clavicular joint. Small subchondral cyst formation greater tuberosity, right humerus. No acute cortical disruption or gross malalignment. No lytic or blastic lesions. XR/XR shoulder RT min 2V IMPRESSION: Mild degenerative changes, right shoulder. Electronically signed by: Santana Greer MD 02/15/2025 03:55 PM EDT Dictated By: Santana Crsos MD Signed By: <Electronically signed by Santana Garvin MDin OV> 02/15/25 1555 DD/ 1551 TD/TT: 02/15/25 1551 Thoroughbred Horse Farm Manager: us Ana Larios UTILIZATION MANAGEMENT NURSE IMG XR PROCEDURES Final Result * VASC US Lower Extremity Venous Duplex Bilateral (12/11/2024 3:16 PM EDT) 12/11/2024 3:16 PM EDT Narrative [facility] - 12/12/2024 1:13 PM EDT [facility] [address] [place] [address] Ultrasound Report Signed Patient: Steven Novak MR#: Marie [id number] : 1965 Acct:[id number] Age/Sex: 59 / M ADM Date: 12/11/24 Loc: . Attending Dr: Chrissie Cosme Ordering Physician: Eliecer Bui MD Date of Service: 12/11/24 Procedure(s): US venous duplex LE BI Accession Number(s): [id number] cc: Stacey Wade MD; Eliecer Bui MD; [...] 12/12/24 0718 DD/ 1516 TD/TT: 12/11/24 1547 Thoroughbred Horse Farm Manager: Procedure Note Donotuseinterpreter, Image - 12/12/[address] [address] Ultrasound Report Signed Patient: Michele Novak#: M [id number] : 1965Acct:[id number] Age/Sex: 59 / MADM Date: 12/11/24 Loc: HO.US Attending Dr: Chrissie Cosme Ordering Physician: Eliecer Bui MD Date of Service: 12/11/24 Procedure(s): US venous duplex LE BI Accession Number(s): [id number] cc: Stacey Wade MD; Eliecer Bui MD; [...] 12/12/24 0718 DD/ 1516 TD/TT: 12/11/24 1547 Thoroughbred Horse Farm Manager: [facility] External Provider CV VASC ULAR PROCEDURES Final Result Performing Organization Address [facility]/ZIP Co de Phone Number [facility] [address] [place] [address] * Hepatitis C Antibody with Reflex to HCV, RNA, Quantitative, Real-Time PCR (10/14/2023 11:05 AM EDT) Hepatitis C Antibody Nonreactive Nonreactive [facility] Comment:Antibodies to HCV no t detected; does not exclude early acuteHCV infection. Blood Venous blood specimen / Unknown 10/14/2023 11:05 AM EDT 10/14/2023 1:15 PM EDT Leland Brandon MD LAB BLOOD ORDERABLES Final Resul t Performing Organization Address [facility]/ZIP Co de Phone Number [facility] [address] [place] [phone] * HIV-1/2 Antigen and Antibodies, Fourth Generation, with Reflexes (10/14/2023 11:05 AM EDT) HIV AB/AG Nonreactive Nonreactive [facility] Comment:HIV-1 p24 Ag and/or HIV-1/HIV-2 Ab not detected.A test result that is nonreactive does not exclude thepossibility of exposure to or infection with HIV-1 and/orHIV-2. Nonreactive results in this assay for individualswith prior exposure to HIV-1 and/or HIV-2 may be due toantigen and antibody levels that are below the limit ofdetection of this assay.The [employer] HIV Ag/Ab Combo assay result andsupplemental assay results should be interpreted inconjunction with the patient's clinical presentation,history and other laboratory results. If the results areinconsistent with clinical evidence, additional testing issuggested to confirm the result. Blood Venous blood specimen / Unknown 10/14/2023 11:05 AM EDT 10/14/2023 1:15 PM EDT us Leland Brandon MD LAB BLOOD ORDERABLES Final Resul t [facility] [address] [place] [phone] * (ABNORMAL) Lipid Panel, Standard (10/14/2023 11:05 AM EDT) Triglycerides 105 <150 mg/dL [facility] Comment:Desirable Triglyceri de: less than 150 mg/dLBorderline High Triglyceride 150-199 mg/dLHigh Triglyceride: 200-499 mg/dLVery High Triglyceride: greater than or equal to 5OO mg/dL Cholesterol 192 <200 mg/dL [facility] Comment:Desirable Cholestero l: less than 200 mg/dLBorderline High Cholesterol: 200-239 mg/dLHigh Cholesterol: greater than 239 mg/dL LDL Cholesterol Calculated 102(H) <100 mg/dL [facility] Comment:Desirable LDL: less than 100 mg/dLNear Optimal/Above Optimal LDL: 110- 129 mg/dLBorderline High LDL: 130-159 mg/dLHigh LDL: 160-189 mg/dLVery High LDL: greater than or equal to 190 mg/dL HDL Cholesterol 69 >40 mg/dL [facility] Comment:Desirable HDL: great er than 40 mg/dL Note: This HDL assay may give artificially low results in patients with liver disease. Blood Venous blood specimen / Unknown 10/14/2023 11:05 AM EDT 10/14/2023 1:15 PM EDT us Leland Brandon MD LAB BLOOD ORDERABLES Final Resul t [facility] [address] [place] [phone] [phone] * Hm Colonoscopy (07/14/2023) Colonoscopy Normal Normal Comment:Normal Colonoscopy r epeat 10 years Leland Brandon MD HEALTH MAINTENANCE Final Result from Last 3 Months or Most Recently Relevant to Health Maintenance Insurance Care Teams Preschool Disability Teacher Relationship Specialty Start Date End Date Name, MD Leland [address] [place] [address] PCP - General Family Medicine 08/26/15
--- OUTSIDE RECORDS SUMMARY | 2025-03-07 06:43 | XMS_ITS | Encounter Summary ---
Author Organization [employer] Address [address] [facility] 7t [place] [address] Care Team Providers Care Bin Operator Name Role Phone Name, Leland MIMS Primary Care Provider Encounter Details Date Type Department Care Team (Latest Contact Info) Description 03/04/2025 Travel Social History Tobacco Use Types Packs/Day [...] Description 04/10/2025 3:30 PM EDT Office Visit [facility] [address] [place] [address] Name, MD Leland [address] [place] [address] documented as of this encounter Visit Diagnoses Not on filedocumented in this encounter Additional Health Concerns Assessment Noted Time PHQ-9 Depression Total Score: 0 09/14/19 24 3:10 PM EDT documented as of this encounter Care Teams Bin Operator Relationship Specialty Start Date End Date NameLeland MD [address] [place] [address] PCP - General Family Medicine 08/26/15 documented as of this encounter
--- OUTSIDE RECORDS SUMMARY | 2025-03-07 06:43 | XMS_ITS | Encounter Summary ---
Author Organization [employer] Address [address] [facility] 7t [place] [address] Care Team Providers Care Corporate Travel Coordinator Name Role Phone Name, Leland MIMS Primary Care Provider [phone] Reason for Visit * Reason Comments Med Refill Encounter Details Date Type Department Care Team (Late Contact Info) Description 10/22/2022 Refill [facility] [address] [place] [address] [phone] Name, MD Leland [address] [place] [address] Insomnia, unspecified type Social History Tobacco Use [...] 04/10/2025 3:30 PM EDT Office Visit [facility] [address] [place] [address] Name, MD Leland [address] [place] [address] documented as of this encounter Visit Diagnoses Diagnosis Insomnia, unspecified type documented in this encounter Additional Health Concerns Assessment Noted Time PHQ-9 Depression Total Score: 0 09/07/19 23 1:16 PM EDT documented as of this encounter Care Teams Corporate Travel Coordinator Relationship Specialty Start Date End Date Name, MD Leland [address] [place] [address] PCP - General Family Medicine 08/26/15 documented as of this encounter
--- OUTSIDE RECORDS SUMMARY | 2025-03-07 06:43 | XMS_ITS | Encounter Summary ---
Author Organization [employer] Address [address] [facility] 7t [place] [address] Care Team Providers Care Beater Room Supervisor Name Role Phone Name, Leland MIMS Primary Care Provider [phone] Reason for Visit * Reason Onset Date Comments Referral 07/20/2022 Encounter Details Date Type Department Care Team ([facility] st Contact Info) Description 07/20/2022 Telephone [facility] [address] [place], [place] [phone] Name, MD Leland [address] [place] [address] Referral Social History Tobacco Use Types Packs/Day [...] - 07/20/2022 10:13 AM EST Marva calling [facility] for new or existing referrals for [facility], [address], [place] [address], Phone #: [phone], Reason for referral is Chronic Severe pain left foot. Marva advised pt has an X-ray done and patient does have the symptom of Chronic pain. Advised Marva with [facility] will forward to team nurse for new referral and principal bioinformatics specialist for existing referral. Please call Marva at [phone] documented in this encounter Plan of Treatment Upcoming Encounters Date Type Department Care Team (Late st Contact Info) Description 04/10/2025 3:30 PM EDT Office Visit [facility] [address] [place] [address] Name, MD Leland [address] [place] [address] documented as of this encounter Visit Diagnoses Not on filedocumented in this encounter Care Teams Beater Room Supervisor Relationship Specialty Start Date End Date Name, MD Leland [address] [place] [address] PCP - General Family Medicine 08/26/15 documented as of this encounter
--- OUTSIDE RECORDS SUMMARY | 2025-03-07 06:43 | XMS_ITS | Encounter Summary ---
Author Organization [employer] Address [address] [facility] 7t [place] [address] Care Team Providers Care Electric Truck Driver Name Role Phone Name, Leland MIMS Primary Care Provider [phone] Reason for Visit * Reason Onset Date Comments Med Refill 03/04/2025 Encounter Details Date Type Department Care Team ([facility] st Contact Info) Description 03/04/2025 Refill [facility] [address] [place] [address] Name, MD Leland [address] [place], [place] [phone] Insomnia, unspecified type Social History Tobacco Use [...] Telephone Encounter - Maxine Bond LPN - 03/04/2025 10:21 AM EDT Supervisor Wet End ck 9..25 and last seen 9..25 * Telephone Encounter - Tawnya Cummings - 03/04/2025 10:18 AM EDT TC from pt requesting medication refill. Medications needing refill : - zolpidem (Ambien) 10 MG tablet To be sent to: - [facility] - [place] - [address] [place] [address] documented in this encounter Plan of Treatment Upcoming Encounters Date Type Department Care Team ([facility] st Contact Info) Description 04/10/2025 3:30 PM EDT Office Visit [facility] [address] [place] [address] Name, MD Leland [address] [place] [address] documented as of this encounter Visit Diagnoses Diagnosis Insomnia, unspecified type documented in this encounter Additional Health Concerns Assessment Noted Time PHQ-9 Depression Total Score: 0 09/14/19 24 3:10 PM EDT documented as of this encounter Care Teams Electric Truck Driver Relationship Specialty Start Date End Date Name, MD Leland [address] [place] [address] PCP - General Family Medicine 08/26/15 documented as of this encounter
--- OUTSIDE RECORDS SUMMARY | 2025-03-07 06:43 | XMS_ITS | Encounter Summary ---
Author Organization [employer] Address 75 [facility] 7t [place] [address] Care Team Providers Care Loading Machine Adjuster Name Role Phone Name, Leland MIMS Primary Care Provider [phone] Reason for Visit * Reason Comments Med Refill Encounter Details Date Type Department Care Team ([facility] st Contact Info) Description 02/20/2025 Refill [facility] [address] [place], [place] [phone] Name, MD Leland [address] [place], [place] [phone] Social History Tobacco Use Types Packs/Day Years [...] Description 04/10/2025 3:30 PM EDT Office Visit [facility] [address] [place] [address] NameLeland MD [address] [place] [address] documented as of this encounter Visit Diagnoses Not on filedocumented in this encounter Additional Health Concerns Assessment Noted Time PHQ-9 Depression Total Score: 0 09/14/19 24 3:10 PM EDT documented as of this encounter Care Teams Loading Machine Adjuster Relationship Specialty Start Date End Date NameLeland MD [address] [place] [address] PCP - General Family Medicine 08/26/15 documented as of this encounter
--- OUTSIDE RECORDS SUMMARY | 2025-03-07 06:43 | XMS_ITS | Clinical Summary ---
Author Organization [address] [facility] Address [address] [place] [address] Phone Care Team Providers Care Scientific Linguist Name Role Phone Name, Leland MIMS Primary Care Provider [phone] Allergies No known active allergies Medications DICLOFENAC [...] Most Recently Relevant to Health Maintenance [place] [address] [place] [address] MEDICARE Member Subscriber Plan / Payer (Ef fective 2017-Present) Name:Steven Subramanian Relation to Subscriber:Self Name:Steven Subramanian Payer ID:[id number] Group ID:[id number] Type:Not on file Address: [facility] [address] [place] [address] Care Teams Scientific Linguist Relationship Specialty Start Date End Date Name, MD Leland [address] [place], [place] PCP - General 01/06/15
--- OUTSIDE RECORDS SUMMARY | 2025-03-07 06:43 | XMS_ITS | Encounter Summary ---
Author Organization [employer] Address [address] [facility] 7t [place] [address] Care Team Providers Care Mucking Machine Operator Name Role Phone Name, Leland MIMS Primary Care Provider [phone] Reason for Visit * Reason Onset Date Comments FYI 07/26/2024 Encounter Details Date Type Department Care Team ([facility] st Contact Info) Description 07/26/2024 Telephone [facility] MEDICINE [address] [place], [place] [phone] Name, MD Leland [address] [place] [address] FYI Social History Tobacco Use Types Packs/Day [...] 8:17 AM EST Tc from Sol with [facility] stating that they contact Pt but he refused Both time and they are only allowed to try and offer the Services twice. So they said that they were not going to keep trying. If any questions contact Sol at [phone] documented in this encounter Plan of Treatment Upcoming Encounters Date Type Department Care Team (Late st Contact Info) Description 04/10/2025 3:30 PM EDT Office Visit [facility] MEDICINE [address] [place] [address] Name, MD Leland [address] [place] [address] documented as of this encounter Visit Diagnoses Not on filedocumented in this encounter Additional Health Concerns Assessment Noted Time PHQ-9 Depression Total Score: 0 09/14/19 24 3:10 PM EDT documented as of this encounter Care Teams Mucking Machine Operator Relationship Specialty Start Date End Date Name, MD Leland [address] [place] [address] PCP - General Family Medicine 08/26/15 documented as of this encounter
--- OUTSIDE RECORDS SUMMARY | 2025-03-07 06:43 | XMS_ITS | Patient Health Record ---
Author Organization [facility] Formerly [facility] Address [address] [place] [address] Care Team Providers Care Klystrom Tube Tester Name Role Phone Name Leland MIMS Primary Care Provider UnavailAlex Naqvimie Unavailable [phone] Nalini Dyer Unavailable [phone] Allergies No Known Allergies Reason For Referral [...] CENTER EVERY DAY WITH FOOD FOR 30 DAYS; Duration: 30 Not-Taking Eliquis 5 MG as directed Orally Not-Taking Ammonium Lactate 12 % 1 application Exte rnally Twice a day; Duration: 30 days Not-Taking Pradaxa 150 MG 1 capsule Orally Twi ce a day Not-Taking Ciclopirox 0.77 % 1 application Digital Operations Analyst ally Twice a day; Duration: 30 days [...] W/U Status Risk Notes Problem Plantar wart (50148012) Plantar wart (B07.0) Active confirmed Problem Acquired hammer toe of left foot (0047577139960404 ) Other hammer toe(s) (acquired), left foot (M20.42) Active confirmed Problem Acquired hammer toe of right foot (2445825542446295 ) Hammer toe of right foot (M20.41) Active confirmed Problem Neuropathy (523808945) Neuropathy (G62.9) Active confirmed Problem Localized, primary osteoarthritis of the ankle and/or foot (877190080) Osteoarthritis of right ankle and foot (M19.071) Active confirmed Problem PlantarFlexion o f metatarsal of left foot (M21.6X2) Active confirmed Problem Gouty arthritis of left foot (2209352832336596 ) Gouty arthritis of left foot (M10.9) Active confirmed Vital Signs Blood pressure diastolic 80 mm Hg 02/14/2025 Height 6ft in 02/14/2025 Blood pressure systolic 129 mm Hg 02/14/2025 Weight 288 lbs 02/14/2025 BMI 39.06 kg/m2 02/14/2025 Encounters Encounter Location Date Provider Diagnosis [facility] [address] [address] 05/21/2024 Nalini Dyer Tinea unguium B35.1 ; Metatarsalgia, left foot M77.42 ; Pain in right toe(s) M79.674 ; Pain in left toe(s) M79.675 ; Xerosis of skin L85.3 ; PlantarFlexion of metatarsal of left foot M21.6X2 ; Other hammer toe(s) (acquired), left foot M20.42 ; Hammer toe of right foot M20.41 and Bursitis of intermetatarsal bursa of left foot M77.[address] [address] 09/06/2024 Nalini Perica Pain in right toe(s) M79.674 ; Onychomycosis B35.1 ; Pain in left toe(s) M79.675 ; Plantar wart B07.0 and Left foot pain M79.[address] [address] 11/15/2024 Nalini Perica Pain in right toe(s) M79.674 ; Onychomycosis B35.1 ; Pain in left toe(s) M79.675 ; Plantar wart B07.0 and Left foot pain M79.[address] [address] 02/14/2025 Nalini Perica Pain in right toe(s) [...] X ray : Foot, right 3V 01/27/2023 [id number] NAIL, 6 OR MORE 11/03/2021 [id number] NAIL, 6 OR MORE 01/19/2022, J0702- INJECT TENDON ORIGIN/INSER T 01/27/2023, J4766-OADHZ/INJECT, JOINT/BURSA 0 07/02/2022 X ray : Ankle, right 3V 01/27/2023 Next Appt Details Provider Name:Nalini addison, 04/22/2025 03:00:00 PM, [address], [place], [address], Insurance Providers Payer Name Payer Address Payer Phone Subscriber Number Group Number Insured Name Patient Relationship to Insured Coverage Start Date Coverage End Date [facility] [employer] Claims [address] [place] [id number] Steven Subramanian Self - patient is the insured Medical (General) History Medical History History ICD Code Arthritis Depression Psoriasis/eczema Surgical History Surgery Date(Month/Year) ear tubes Hospitalization History Reason Date(Month/Year) blood clot 09/04 [facility] leg issue, cyst [facility]- blood clot 07/2021
--- OUTSIDE RECORDS SUMMARY | 2025-03-07 06:43 | XMS_ITS | Encounter Summary ---
Author Organization [employer] Address [address] [facility] 7t [place] [address] Care Team Providers Care Bleach Boiler Filler Name Role Phone Name, Leland MIMS Primary Care Provider [phone] Reason for Visit * Reason Onset Date Comments Verbal Order 07/24/2024 Encounter Details Date Type Department Care Team ([facility] st Contact Info) Description 07/24/2024 Telephone [facility] MEDICINE [address] [place], [place] [phone] Name, MD Leland [address] [place] [address] Verbal Order Social History Tobacco Use Types [...] EST Telephone call returned to Katey at [facility], spoke with Katey. Gave verbal orders for VNA care. Asked when last office visit was, advised it was 07/06/24 with PCP and also pt was seen in [facility] walk in clinic on 07/14/24. Katey verbalized understanding, no further questions. * Telephone Encounter - João Bhatt - 07/24/2024 4:34 PM EST Tc from Emelia with [facility] requesting verbal orders. Please contact Emelia at [phone] Opt 2. documented in this encounter Plan of Treatment Upcoming Encounters Date Type Department Care Team (Late st Contact Info) Description 04/10/2025 3:30 PM EDT Office Visit [facility] MEDICINE [address] [place] [address] Name, MD Leland [address] [place] [address] documented as of this encounter Visit Diagnoses Not on filedocumented in this encounter Additional Health Concerns Assessment Noted Time PHQ-9 Depression Total Score: 0 09/14/19 24 3:10 PM EDT documented as of this encounter Care Teams Bleach Boiler Filler Relationship Specialty Start Date End Date Name, MD Leland [address] [place] [address] PCP - General Family Medicine 08/26/15 documented as of this encounter
--- OUTSIDE RECORDS SUMMARY | 2025-03-07 06:43 | XMS_ITS | Encounter Summary ---
Author Organization [employer] Address [address] [facility] [address] 7t [place] [address] Care Team Providers Care Astro Technician Name Role Phone Name, Leland MIMS Primary Care Provider [phone] Reason for Visit * Reason Comments Med Refill Encounter Details Date Type Department Care Team (Late st Contact Info) Description 07/25/2024 Refill [facility] 230 [place], [place] [phone] Stacey Wade MD 230 [place], [place] [phone] Lumbago with sciatica, right side Social History [...] Description 04/10/2025 3:30 PM EDT Office Visit [facility] MEDICINE 230 [place] [address] Name, MD Leland [address] [place] [address] documented as of this encounter Visit Diagnoses Diagnosis Lumbago with sciatica, right side documented in this encounter Additional Health Concerns Assessment Noted Time PHQ-9 Depression Total Score: 0 09/14/19 24 3:10 PM EDT documented as of this encounter Care Teams Astro Technician Relationship Specialty Start Date End Date Name, MD Leland [address] [place] [address] PCP - General Family Medicine 08/26/15 documented as of this encounter
== END 2025-03-07 06:33 | disposition home or self-care (01) ==
LOC: CF 06:32
PROVIDERS: Visit Provider Internal Medicine
DX: M53.3 Sacrococcygeal disorders, not elsewhere classified (principal); M70.62 Trochanteric bursitis, left hip
CPT/HCPCS: 20610; 27096; J2003; J2795; J3301; Q9967

== ENCOUNTER 2025-03-07 11:54 | Outpatient (AMB) | payer OTHER, SELFPAY ==
--- OUTSIDE RECORDS SUMMARY | 2025-03-04 18:00 | XMS_ITS | Encounter Summary ---
Author Organization [employer] Address [address] [facility] [address] 7t [place] [address] Care Team Providers Care Air Value Tester Name Role Phone Name, Leland MIMS Primary Care Provider [phone] Encounter Details Date Type Department Care Team (Late st Contact Info) Description 03/04/2025 6:00 PM EDT Office Visit [facility] [address] [place] [address] Lazarus Macias MD [address] [place] [address] Complaint of nasal congestion (Primary Dx); Acute [...] triage based on message below via BLS Re Etcher Zac #[id number]. Pt reports that periodically during the day [...] person evaluation. Pt agrees to come to [facility] for evaluation either this evening or tomorrow. [...] Chronic narcotic use Nocturnal enuresis Opioid dependence ([facility]) Obstructive sleep apnea syndrome Neurogenic claudication due to lumbar spinal stenosis Recurrent deep vein thrombosis ([facility]) Recurrent major depression in partial remission ([facility]CC) Swelling of lower limb Tobacco dependence syndrome [...] 3:30 PM EDT Office Visit [facility] [address] [place] [address] Name, MD Leland [address] [place] [address] Scheduled Orders Name Type Priority Associated Diagnoses [...] documented as of this encounter Care Teams Air Value Tester Relationship Specialty Start Date End Date NameLeland MD [address] [place] [id number] PCP - General Family Medicine 08/26/15 documented as of this encounter
[2025-03-07 12:02] VITALS: BP 137/64; PULSE 88; RESP 16; O2SAT 95; BMI 38.6
--- NOTE | 2025-03-07 12:02 | MHC.OFFVIS ---
Vital Signs 03/07/25 12:02 03/07/25 12:40 Height 6 ft Weight 285 lb BMI 38.6 BP 137/64 152/77 H Blood Pressure Location Lt brachial Lt brachial Position Sitting Sitting Respiration 16 16 Pulse 88 90 Pulse Source Pulse Oximeter Pulse Oximeter Pulse Oximetry (%) 95 93 Oxygen Delivery Method Room Air Room Air Intake Visit Reasons: (L) TX GTB Injection/ (L) TX SIJ Injection Allergies No Known Allergies Allergy (Verified 03/07/25 12:03) Medication List - Last Reconciled 03/07/25 by Arielle Maddox LPN acetaminophen ER 650 mg PO Q8H PRN diclofenac sodium 1% (Arthritis Pain (diclofenac)) 4 grams topical QID doxycycline monohydrate 100 mg PO BID 14 days duloxetine 30 mg PO BID enoxaparin mg subcut fluocinolone acetonide oil 0.01% 0 drps otic (ears) gabapentin 800 mg PO TID lisinopril 10 mg PO DAILY methadone 10 mg PO Q6-8H PRN methocarbamol mg PO 3XD mometasone 0.1% topical propranolol mg PO rivaroxaban (Xarelto) 20 mg PO QPM umeclidinium-vilanterol 62.5-25 mcg/actuation (Anoro Ellipta) 1 inh inhalation DAILY zolpidem 10 mg PO BEDTIME PRN HPI HPI (L) TX GTB Injection/ (L) TX SIJ Injection: Details: Patient presents for scheduled procedure. Denies any recent cough, cold, infection, fever or other significant changes in medical history since last office visit. [facility] Medical History Benign essential tremor COPD (chronic obstructive pulmonary disease) Dyspnea Nocturnal hypoxia Hyperlipidemia History of recurrent deep vein thrombosis (DVT) Chronic back pain Methadone maintenance therapy patient REAGAN (obstructive sleep apnea) Personal history of nicotine dependence Thrombosed external hemorrhoid Morbid obesity Hypertension Chronic pulmonary embolism Current use of anticoagulant therapy Surgical History Hx of colonoscopy History of excision of mass Family History Father History of prostate cancer Social History Household Members: Friend(s) Alcohol intake: former Year quit: 2023 Patient Tobacco Use Status: Former Tobacco user Tobacco use type: Cigarette Years Smoked: onset 14, 1/2-1ppd x 42yrs, 30pyh Current occupational status: disabled Physical Exam Vital Signs: Last Vital Signs Pulse 90 03/07/25 12:40 Resp 16 03/07/25 12:40 BP 152/77 H 03/07/25 12:40 Pulse Ox 93 03/07/25 12:40 Oxygen Delivery Method Room Air 03/07/25 12:40 BMI result Body Mass Index 38.6 Office Procedures AMB Joint Injection/Aspiration Joint Injection/Aspiration Details: Sacroiliac Joint Injection, left The procedure, its benefits, and its risks were explained and written informed consent was obtained from the patient. Immediately prior to starting the procedure, a time-out safety check was conducted. The patient's identification, procedure name, procedure site, and procedure laterality were confirmed with the patient. ? Patient was placed prone on the fluoroscopy table and the lumbosacral area was prepped using ChloraPrep and draped with sterile draped in standard fashion. The C-arm was rotated in a contralateral oblique fashion until the medial border of the iliac crest no longer foreshadowed the posterior sacroiliac joint line. The skin and subcutaneous tissue was anesthetized using 1 mL of 0.75% plain lidocaine with 1.5-inch 25-gauge needle in the middle region of the joint line.? A 3.5-inch 22-gauge spinal needle with small bend on the tip was slowly advanced towards the joint line, coaxial to the x-ray beam. Once bony content was obtained, the needle was easily slid into the intra-articular space.? Intra-articular needle position was confirmed using lateral fluoroscopy.? A total volume of 2.5mL of solution containing 40 mg trimcinilone and rest 0.5% of ropivacaine was injected intra-articularly. The stylet was reinserted and needle was removed. Greater Trochanteric Bursa Injection, left With the patient in prone position and the use of fluroscopy the greater trochanter was identified. The 22-gauge 3.5 spinal needle was then withdrawn and advanced toward the trochanteric bursa. Once in position, and after negative aspiration, injection of 40mg triamcinilone mixed with 0.5% ropivcaine (3mL total) was completed. There was no evidence of paresthesias throughout needle placement. The stylet was replaced and then the needle was withdrawn. The patient tolerated the procedure well and there was no evidence of procedural complications. The patient was observed in the procedure room for 20 minutes, vitals were stable, and discharged in stable condition. Coding 32443 - Glenohumeral/Tronchanteric Bursa/Intraarticular 26594 - Sacroiliac Procedure code (CPT) selection complete Office Meds lidocaine (PF) 10 mg/mL (1 %) injection solution Performing Provider: Chance Mathis MD Performing Location: [facility] Documented (not given) by: Chance Mathis MD on 03/07/25 13:36 Dose Route Admin Location Dispensed Lot Number Expiration Date NDC Sawmill Manager 2 mL Infiltration mL Total Dispensed Waste n/a n/a Assessment & Plan Assessment & Plan (1) Greater trochanteric bursitis of left hip: Code(s): M70.62 - Trochanteric bursitis, left hip Category: Medical (2) Sacroiliac joint pain: Code(s): M53.3 - Sacrococcygeal disorders, not elsewhere classified Category: Medical Plan Patient is status post left SI joint and GTB corticosteroid injections. Patient tolerated procedure well and was discharged home in stable condition with discharge instructions. All questions were answered. We will follow-up via telephone or in clinic to assess response to therapy. A follow-up appointment was made during today's visit. Orders: Orders FL guidance in treatment room Today Landy Payne APRN, [employer] M53.3 - Sacrococcygeal disorders, not elsewhere classified AMB Joint Injection/Aspiration Today Chance Mathis MD M53.3 - Sacrococcygeal disorders, not elsewhere classified, M70.62 - Trochanteric bursitis, left hip Medications: New lidocaine (PF) 2 mL Infiltration ONCE 2 mL 0RF Chance Mathis MD M53.3 - Sacrococcygeal disorders, not elsewhere classified, M70.62 - Trochanteric bursitis, left hip Coding Level of Care Code Procedure Only Diagnoses Greater trochanteric bursitis of left hip M70.62 Sacroiliac joint pain M53.3 CPT Codes Coding - Joint 7: 36848 - Glenohumeral/Tronchanteric Bursa/Intraarticular ([id number]) Coding - Joint 9: 81227 - Sacroiliac ([id number])
[2025-03-07 12:40] VITALS: BP 152/77; PULSE 90; RESP 16; O2SAT 93
--- OUTSIDE RECORDS SUMMARY | 2025-03-07 16:48 | XMS_ITS | Encounter Summary ---
Author Organization [employer] Address [address] [facility] 7t [place] [address] Care Team Providers Care Vegetable Farmer Name Role Phone Name, Leland MIMS Primary Care Provider [phone] Encounter Details Date Type Department Care Team [...] Description 04/10/2025 3:30 PM EDT Office Visit [facility] MEDICINE [address] [place] [address] Name, MD Leland [address] [place] [address] documented as of this encounter Visit Diagnoses Not on filedocumented in this encounter Additional Health Concerns Assessment Noted Time PHQ-9 Depression Total Score: 0 09/14/19 24 3:10 PM EDT documented as of this encounter Care Teams Vegetable Farmer Relationship Specialty Start Date End Date NameLeland MD [address] [place] [address] PCP - General Family Medicine 08/26/15 documented as of this encounter
--- OUTSIDE RECORDS SUMMARY | 2025-03-07 16:48 | XMS_ITS | Encounter Summary ---
Author Organization [employer] Address [address] [facility] 7t [place] [address] Care Team Providers Care Lap Cutter Name Role Phone Name, Leland MIMS Primary Care Provider [phone] Reason for Visit * Reason Onset Date Comments Nurse Triage 08/06/2024 Encounter Details Date Type Department Care Team ([facility] st Contact Info) Description 08/06/2024 Telephone [facility] MEDICINE 230 [place], [place] [phone] Name, MD Leland 230 [place] [address] Nurse Triage Social History Tobacco Use Types [...] 08/06/2024 3:03 PM EST Triage call with [facility] transverse abdominal muscle nurse [place] [id number] Pt is called several times and call [...] Description 04/10/2025 3:30 PM EDT Office Visit [facility] MEDICINE [address] [place] [address] Name, MD Leland [address] [place] [address] documented as of this encounter Visit Diagnoses Diagnosis Osteoarthritis of right ankle and foot Swelling of lower limb documented in this encounter Additional Health Concerns Assessment Noted Time PHQ-9 Depression Total Score: 0 09/14/19 24 3:10 PM EDT documented as of this encounter Care Teams Lap Cutter Relationship Specialty Start Date End Date Name, MD Leland [address] [place] [address] PCP - General Family Medicine 08/26/15 documented as of this encounter
--- OUTSIDE RECORDS SUMMARY | 2025-03-07 16:48 | XMS_ITS | Encounter Summary ---
Author Organization [employer] Address [address] [facility] 7t [place] [address] Care Team Providers Care Looping Machine Operator Name Role Phone Name, Leland MIMS Primary Care Provider [phone] Encounter Details Date Type Department Care Team ([facility] Contact Info) Description 11/22/[address] [phone] Name, MD Leland [address] [place] [address] [phone] Social History Tobacco Use Types Packs/Day Years [...] Upcoming Encounters Date Type Department Care Team ([facility] Contact Info) Description 04/10/2025 3:30 PM EDT Office Visit [facility] MEDICINE [address] [place] [address] Name, MD Leland 230 [place] [address] documented as of this encounter Visit Diagnoses Not on filedocumented in this encounter Additional Health Concerns Assessment Noted Time PHQ-9 Depression Total Score: 0 09/07/19 23 1:16 PM EDT documented as of this encounter Care Teams Looping Machine Operator Relationship Specialty Start Date End Date Name, MD Leland 230 [place] [address] PCP - General Family Medicine 08/26/15 documented as of this encounter
--- OUTSIDE RECORDS SUMMARY | 2025-03-07 16:48 | XMS_ITS | Encounter Summary ---
Author Organization [employer] Address [address] [facility] 7t [place] [address] Care Team Providers Care Plisse Machine Operator Name Role Phone Name, Leland MIMS Primary Care Provider [phone] Reason for Visit * Reason Comments Med Refill Encounter Details Date Type Department Care Team ([facility] st Contact Info) Description 01/28/2025 Refill [facility] MEDICINE 230 [place], [place] [phone] Sonia Treviño, ANP 230 [place], [place] [phone] Insomnia, unspecified type Social History Tobacco Use [...] Description 04/10/2025 3:30 PM EDT Office Visit [facility] MEDICINE 230 [place] [address] NameLeland MD 230 [place] [address] documented as of this encounter Visit Diagnoses Diagnosis Insomnia, unspecified type documented in this encounter Additional Health Concerns Assessment Noted Time PHQ-9 Depression Total Score: 0 09/14/19 24 3:10 PM EDT documented as of this encounter Care Teams Plisse Machine Operator Relationship Specialty Start Date End Date NameLeland MD [address] [place] [address] PCP - General Family Medicine 08/26/15 documented as of this encounter
--- OUTSIDE RECORDS SUMMARY | 2025-03-07 16:48 | XMS_ITS | Encounter Summary ---
Author Organization [employer] Address [address] [facility] 7t [place] [address] Care Team Providers Care Forensic Dna Analyst Name Role Phone Name, Leland MIMS Primary Care Provider [phone] Reason for Visit * Reason Comments Med Refill Encounter Details Date Type Department Care Team (Late Contact Info) Description 02/21/2023 Refill [facility] MEDICINE [address] [place] [address] [phone] NameLeland MD [address] [place] [address] [phone] Insomnia, unspecified type Social History Tobacco Use [...] Description 04/10/2025 3:30 PM EDT Office Visit [facility] MEDICINE [address] [place] [phone] Name, MD Leland [address] [place] [address] [phone] documented as of this encounter Visit Diagnoses Diagnosis Insomnia, unspecified type documented in this encounter Additional Health Concerns Assessment Noted Time PHQ-9 Depression Total Score: 0 09/07/19 23 1:16 PM EDT documented as of this encounter Care Teams Forensic Dna Analyst Relationship Specialty Start Date End Date Name, MD Leland 230 [place] [address] PCP - General Family Medicine 08/26/15 documented as of this encounter
--- OUTSIDE RECORDS SUMMARY | 2025-03-07 16:48 | XMS_ITS | Encounter Summary ---
Author Organization [employer] Address [address] [facility] 7t [place] [address] Care Team Providers Care Vice President Commercial Bank Name Role Phone Name, Leland MIMS Primary Care Provider [phone] Reason for Visit * Reason Comments Med Refill Encounter Details Date Type Department Care Team ([facility] st Contact Info) Description 02/20/2025 Refill [facility] MEDICINE 230 [place], [place] [phone] Name, MD Leland 230 [place], [place] [phone] Social History Tobacco Use Types Packs/Day Years [...] Description 04/10/2025 3:30 PM EDT Office Visit [facility] MEDICINE [address] [place] [address] NameLeland MD 230 [place] [address] documented as of this encounter Visit Diagnoses Not on filedocumented in this encounter Additional Health Concerns Assessment Noted Time PHQ-9 Depression Total Score: 0 09/14/19 24 3:10 PM EDT documented as of this encounter Care Teams Vice President Commercial Bank Relationship Specialty Start Date End Date NameLeland MD [address] [place] [address] PCP - General Family Medicine 08/26/15 documented as of this encounter
--- OUTSIDE RECORDS SUMMARY | 2025-03-07 16:48 | XMS_ITS | Encounter Summary ---
Author Organization [employer] Address [address] [facility] 7t [place] [address] Care Team Providers Care Sound Assistant Name Role Phone Name, Leland MIMS Primary Care Provider [phone] Encounter Details Date Type Department Care Team (Late st Contact Info) Description 07/19/2023 Abstract [facility] MEDICINE 230 [place], [place] [phone] Name, MD Leland 230 [place], [place] [phone] Social History Tobacco Use Types Packs/Day Years [...] 04/10/2025 3:30 PM EDT Office Visit [facility] MEDICINE 230 [place] [address] NameLeland MD [address] [place] [address] documented as of this encounter Procedures Procedure [...] documented as of this encounter Care Teams Sound Assistant Relationship Specialty Start Date End Date Name, MD Leland [address] [place] [address] PCP - General Family Medicine 08/26/15 documented as of this encounter
--- OUTSIDE RECORDS SUMMARY | 2025-03-07 16:48 | XMS_ITS | Encounter Summary ---
Author Organization [employer] Address [address] [facility] 7t [place] [address] Care Team Providers Care Rn Travel Name Role Phone Name, Leland MIMS Primary Care Provider [phone] Reason for Visit * Reason Comments Med Refill Encounter Details Date Type Department Care Team ([facility] st Contact Info) Description 06/20/2023 Refill [facility] [address] [place] [address] Name, MD Leland [address] [place], [place] [phone] Insomnia, unspecified type Social History Tobacco Use [...] t he electric, gas, oil or water [employer] threatened to shut off services in your [...] Office Visit [facility] [address] [place] [address] Name, MD Leland [address] [place] [address] documented as of this encounter Visit Diagnoses Diagnosis Insomnia, unspecified type documented in this encounter Additional Health Concerns Assessment Noted Time PHQ-9 Depression Total Score: 0 09/07/19 23 1:16 PM EDT documented as of this encounter Care Teams Rn Travel Relationship Specialty Start Date End Date Name, MD Leland [address] [place] [address] PCP - General Family Medicine 08/26/15 documented as of this encounter
--- OUTSIDE RECORDS SUMMARY | 2025-03-07 16:48 | XMS_ITS | Encounter Summary ---
Author Organization [employer] Address [address] [facility] [address] 7t [place] [address] Care Team Providers Care Die Maker Name Role Phone Name, Leland MIMS Primary Care Provider Reason for Visit * Reason Comments Med Refill Encounter Details Date Type Department Care Team ([facility] st Contact Info) Description 09/23/2023 Refill [facility] [address] [place] [address] Ila Lora MD [address] [place], [place] [phone] Social History Tobacco Use Types Packs/Day Years [...] EDT Office Visit [facility] [address] [place] [address] Name, MD Leland [address] [place] [address] documented as of this encounter Visit Diagnoses Not on filedocumented in this encounter Additional Health Concerns Assessment Noted Time PHQ-9 Depression Total Score: 0 09/14/19 24 3:10 PM EDT documented as of this encounter Care Teams Die Maker Relationship Specialty Start Date End Date NameLeland MD [address] [place] [address] PCP - General Family Medicine 08/26/15 documented as of this encounter
--- OUTSIDE RECORDS SUMMARY | 2025-03-07 16:48 | XMS_ITS | Encounter Summary ---
Author Organization [employer] Address 75 [facility] 7t [place] [address] Care Team Providers Care Car Body Inspector Name Role Phone Name, Leland MIMS Primary Care Provider [phone] Reason for Visit * Reason Onset Date Comments Med Refill 01/02/2024 Encounter Details Date Type Department Care Team ([facility] st Contact Info) Description 01/02/2024 Telephone [facility] [address] [place] [address] Name, MD Leland [address] [place], [place] [phone] Med Refill Social History Tobacco Use Types [...] 10 MG tablet To be sent to: [facility] - [place], [place] - [address] [place] [address] documented in this encounter Plan of Treatment Upcoming Encounters Date Type Department Care Team ([facility] st Contact Info) Description 04/10/2025 3:30 PM EDT Office Visit [facility] [address] [place] [address] Name, MD Leland [address] [place] [address] documented as of this encounter Visit Diagnoses Not on filedocumented in this encounter Additional Health Concerns Assessment Noted Time PHQ-9 Depression Total Score: 0 09/14/19 24 3:10 PM EDT documented as of this encounter Care Teams Car Body Inspector Relationship Specialty Start Date End Date Name, MD Leland [address] [place] [address] PCP - General Family Medicine 08/26/15 documented as of this encounter
--- OUTSIDE RECORDS SUMMARY | 2025-03-07 16:48 | XMS_ITS | Encounter Summary ---
Author Organization [employer] Address 75 [facility] 7t [place] [address] Care Team Providers Care Resident Hall Director Name Role Phone Name, Leland MIMS Primary Care Provider [phone] Reason for Visit * Reason Onset Date Comments Med Refill 07/28/2023 Encounter Details Date Type Department Care Team ([facility] st Contact Info) Description 07/28/2023 Telephone [facility] [address] [place] [address] Name, MD Leland [address] [place], [place] [phone] Med Refill Social History Tobacco Use Types [...] Vogt LPN - 07/28/2023 11:52 AM EST SOFT METALS ENGRAVER HAND checked 07/28/23 last filled on 06/17/23 refill 2/3 patient should have 1 refill left. * Telephone Encounter - Hailee Louie - 07/28/2023 11:08 AM EST TC from pt requesting medication refill. Medications needing refill : gabapentin (Neurontin) 800 MG tablet To be sent to: [facility] - [place] - [address] [place] [address] documented in this encounter Plan of Treatment Upcoming Encounters Date Type Department Care Team (Late st Contact Info) Description 04/10/2025 3:30 PM EDT Office Visit [facility] [address] [place] [address] Name, MD Leland [address] [place] [address] documented as of this encounter Visit Diagnoses Not on filedocumented in this encounter Additional Health Concerns Assessment Noted Time PHQ-9 Depression Total Score: 0 09/07/19 23 1:16 PM EDT documented as of this encounter Care Teams Resident Hall Director Relationship Specialty Start Date End Date Name, MD Leland [address] [place] [address] PCP - General Family Medicine 08/26/15 documented as of this encounter
--- OUTSIDE RECORDS SUMMARY | 2025-03-07 16:48 | XMS_ITS | Encounter Summary ---
Author Organization [employer] Address [address] [facility] 7t [place] [address] Care Team Providers Care Sales Management Trainee Name Role Phone Name, Leland MIMS Primary Care Provider [phone] Reason for Visit * Reason Onset Date Comments Call Back Request 08/30/2024 Encounter Details Date Type Department Care Team ([facility] st Contact Info) Description 08/30/2024 Telephone [facility]INE 230 [place] [address] Name, MD Leland [address] [place] [address] Call Back Request Social History Tobacco Use [...] walks with no problem due to procedure. Nauruan speaker documented in this encounter Plan of Treatment Upcoming Encounters Date Type Department Care Team (Late st Contact Info) Description 04/10/2025 3:30 PM EDT Office Visit [facility] [address] [place] [address] Name, MD Leland [address] [place] [address] documented as of this encounter Visit Diagnoses Not on filedocumented in this encounter Additional Health Concerns Assessment Noted Time PHQ-9 Depression Total Score: 0 09/14/19 24 3:10 PM EDT documented as of this encounter Care Teams Sales Management Trainee Relationship Specialty Start Date End Date Name, MD Leland [address] [place] [address] PCP - General Family Medicine 08/26/15 documented as of this encounter
--- OUTSIDE RECORDS SUMMARY | 2025-03-07 16:48 | XMS_ITS | Encounter Summary ---
Author Organization [employer] Address 75 [facility] 7t [place] [address] Care Team Providers Care Adaptive Physical Education Teacher Name Role Phone Name, Leland MIMS Primary Care Provider [phone] Encounter Details Date Type Department Care Team (Late st Contact Info) Description 03/24/2023 Telephone [facility]INE 230 [place], [place] [phone] Name, MD Leland 230 [place] [address] Social History Tobacco Use Types Packs/Day Years [...] advise PCP pt is currently admitted to [facility] and was found with blood clots to both legs. Any questions, contact pt at [phone] documented in this encounter Plan of Treatment Upcoming Encounters Date Type Department Care Team (Late st Contact Info) Description 04/10/2025 3:30 PM EDT Office Visit [facility] [address] [place] [address] Name, MD Leland 230 [place] [address] documented as of this encounter Visit Diagnoses Not on filedocumented in this encounter Additional Health Concerns Assessment Noted Time PHQ-9 Depression Total Score: 0 09/07/19 23 1:16 PM EDT documented as of this encounter Care Teams Adaptive Physical Education Teacher Relationship Specialty Start Date End Date Name, MD Leland [address] [place] [address] PCP - General Family Medicine 08/26/15 documented as of this encounter
--- OUTSIDE RECORDS SUMMARY | 2025-03-07 16:49 | XMS_ITS | Encounter Summary ---
Author Organization [employer] Address 75 [facility] 7t [place] [address] Care Team Providers Care Circuit Breaker Assembler Name Role Phone Name, Leland MIMS Primary Care Provider [phone] Reason for Visit * Reason Onset Date Comments Med Refill 03/04/2025 Encounter Details Date Type Department Care Team ([facility] st Contact Info) Description 03/04/2025 Refill [facility] [address] [place] [address] Name, MD Leland [address] [place], [place] [phone] Insomnia, unspecified type Social History Tobacco Use [...] Bond LPN - 03/04/2025 10:21 AM EDT Throw Out Clerk ck 9..25 and last seen 9..25 * Telephone Encounter - Tawnya Cummings - 03/04/2025 10:18 AM EDT TC from pt requesting medication refill. Medications needing refill : - zolpidem (Ambien) 10 MG tablet To be sent to: - [facility] - [place] - [address] [place] [address] documented in this encounter Plan of Treatment Upcoming Encounters Date Type Department Care Team ([facility] st Contact Info) Description 04/10/2025 3:30 PM EDT Office Visit [facility] [address] [place] [address] Name, MD Leland [address] [place] [address] documented as of this encounter Visit Diagnoses Diagnosis Insomnia, unspecified type documented in this encounter Additional Health Concerns Assessment Noted Time PHQ-9 Depression Total Score: 0 09/14/19 24 3:10 PM EDT documented as of this encounter Care Teams Circuit Breaker Assembler Relationship Specialty Start Date End Date Name, MD Leland [address] [place] [address] PCP - General Family Medicine 08/26/15 documented as of this encounter
--- OUTSIDE RECORDS SUMMARY | 2025-03-07 16:49 | XMS_ITS | Encounter Summary ---
Author Organization [employer] Address 75 [facility] 7t [place] [address] Care Team Providers Care Patent Chemist Name Role Phone Name, Leland MIMS Primary Care Provider [phone] Reason for Visit * Reason Onset Date Comments Call Back Request 10/05/2024 Encounter Details Date Type Department Care Team ([facility] st Contact Info) Description 10/05/2024 Telephone [facility] 230 [place] [address] Name, MD Leland [address] [place] [address] Call Back Request Social History Tobacco Use [...] your housing situation today? I have andrew mahcuca 09/10/[address] you li [...] 10/05/2024 4:41 PM EDT Triage call with [facility] Furnace Installer [place] [id number] Pt is calling in regards to concerns that Pt is diabetic. Pt does have dx of impaired glucose intolerance. Pt reports an open area behind left knee that has never healed and an ulcer . It is unclearto health underwriter if this is a wound that [...] 10/05/2024 4:01 PM EDT Called pt. Via [employer] diplomatic interpreter [phone] [address]. Triage nurse notified me that she is currently on phone with pt. No answer as pt. Is on other line. * Telephone Encounter - Loi Cobos - 10/05/2024 3:40 PM EDT TC from pt returning call regarding prior message. Contact pt at [phone] * Telephone Encounter - Vic Finnegan - [...] has not yet been contacted by the facility.Gold Leaf Printer does not see referral in system; pt states that his condition is worsening. ( Denied triage ) Please return call [phone] (M[place]OCCAN) documented in this encounter Plan of Treatment Upcoming Encounters Date Type Department Care Team (Late st Contact Info) Description 04/10/2025 3:30 PM EDT Office Visit [facility] [address] [place] [address] Name, MD Leland [address] [place] [address] documented as of this encounter Visit Diagnoses Not on filedocumented in this encounter Additional Health Concerns Assessment Noted Time PHQ-9 Depression Total Score: 0 09/14/19 24 3:10 PM EDT documented as of this encounter Care Teams Patent Chemist Relationship Specialty Start Date End Date Name, [place] [address] PCP - General Family Medicine 08/26/15 documented as of this encounter
--- OUTSIDE RECORDS SUMMARY | 2025-03-07 16:49 | XMS_ITS | Encounter Summary ---
Author Organization [employer] Address [address] [facility] 7t [place] [address] Care Team Providers Care Sausage Wrapper Name Role Phone Name, Leland MIMS Primary Care Provider [phone] Reason for Visit * Reason Onset Date Comments telephone call 03/04/2025 Encounter Details Date Type Department Care Team ([facility] st Contact Info) Description 03/04/2025 Telephone [facility] MED[facility]INE [address] [place], [place] [phone] Name, MD Leland [address] [place] [address] telephone call Social History Tobacco Use Types [...] for triage based on message below via Setup Quality Control Assessor Zac #[id number]. Pt reports that periodically during the day [...] person evaluation. Pt agrees to come to [facility] for evaluation either this evening or tomorrow. * Telephone Encounter - Pavithra Salgado - 03/04/2025 3:03 PM EDT Pt walked in requesting a sooner appointment with pcp because he has been having a lot of back paindue to him having to haunch more and its affecting his breathing. Best contact number is [phone] documented in this encounter Plan of Treatment Upcoming Encounters Date Type Department Care Team (Late st Contact Info) Description 04/10/2025 3:30 PM EDT Office Visit [facility] MED[facility]INE [address] [place] [address] Name, MD Leland [address] [place] [address] documented as of this encounter Visit Diagnoses Not on filedocumented in this encounter Additional Health Concerns Assessment Noted Time PHQ-9 Depression Total Score: 0 09/14/19 24 3:10 PM EDT documented as of this encounter Care Teams Sausage Wrapper Relationship Specialty Start Date End Date Name, MD Leland [address] [place] [address] PCP - General Family Medicine 08/26/15 documented as of this encounter
--- OUTSIDE RECORDS SUMMARY | 2025-03-07 16:49 | XMS_ITS | Encounter Summary ---
Author Organization [employer] Address 75 [facility] 7t [place] [address] Care Team Providers Care Reducing System Operator Name Role Phone Name, Leland MIMS Primary Care Provider [phone] Reason for Visit * Reason Onset Date Comments Verbal Order 07/24/2024 Encounter Details Date Type Department Care Team ([facility] st Contact Info) Description 07/24/2024 Telephone [facility]INE 230 [place], [place] [phone] Name, MD Leland [address] [place] [address] Verbal Order Social History Tobacco Use Types [...] call returned to Katey at [facility], spoke with Katey. Gave verbal orders for VNA care. Asked when last office visit was, advised it was 07/06/24 with PCP and also pt was seen in [facility] walk in clinic on 07/14/24. Katey verbalized understanding, no further questions. * Telephone Encounter - João Bhatt - 07/24/2024 4:34 PM EST Tc from Emelia with [facility] requesting verbal orders. Please contact Emelia at [phone] Opt 2. documented in this encounter Plan of Treatment Upcoming Encounters Date Type Department Care Team (Late st Contact Info) Description 04/10/2025 3:30 PM EDT Office Visit [facility] MED[facility]INE [address] [place] [address] Name, MD Leland [address] [place] [address] documented as of this encounter Visit Diagnoses Not on filedocumented in this encounter Additional Health Concerns Assessment Noted Time PHQ-9 Depression Total Score: 0 09/14/19 24 3:10 PM EDT documented as of this encounter Care Teams Reducing System Operator Relationship Specialty Start Date End Date Name, MD Leland [address] [place] [address] PCP - General Family Medicine 08/26/15 documented as of this encounter
--- OUTSIDE RECORDS SUMMARY | 2025-03-07 16:49 | XMS_ITS | Clinical Summary ---
Author Organization [employer] Address [address] [facility] 7t [place] [address] Care Team Providers Care Clinical Office Technician Name Role Phone Name, Leland MIMS Primary Care Provider [phone] Allergies No known active allergies Medications * [...] to the hospital, case was presented to [facility] I let them know patient should have a CTA to r/o pulmonary embolism Connell's cyst of knee, right 02/07/2024 Assessment & Plan (02/07/2024 3:06 PM EDT): I will refer him to orthopedics to address his pain Hammer toe of right foot 03/29/2023 023 Neuropathy 03/29/2023 03/29/2023 Other acquired deformities of left foot 03/29/20 23 03/29/2023 [facility] (current) use of opiate analgesic 03/1303/23/2023 Overview [...] difficulty w his meds-does get help from FOOD SERVICES MANAGER ,states has VNA monthly -prescribed BP machine today and advised pt to monitor w [employer] full time staff interpreter in 2 weeks -requested to RN team [...] of motion. Patient follows at [facility] and has been treated with injections [...] Description 03/04/2025 6:00 PM EDT Office Visit [facility] [address] [place] [address] Lazarus Macias MD Complaint of nasal congestion (Primary Dx); Acute sinusitis with symptoms > 10 days; Hypertension, unspecified type 03/04/2025 Travel 03/04/2025 Telephone [facility] [address] [place] [address] Leland Brandon MD telephone call 03/04/2025 Refill [facility] [address] [place] [address] Leland Brandon MD Insomnia, unspecified type 02/20/2025 Telephone [facility] [address] [place] [address] Kelsi Huff, ANNITA 02/20/2025 Refill [facility] [address] [place] [address] Leland Brandon MD 02/19/2025 Telephone [facility] [address] [place] [address] Leland Brandon MD Medication Question 02/15/2025 2:40 PM EDT Office Visit [facility] [place] [address] Ana Larios NP Acute pain of right shoulder (Primary Dx); Left leg pain; Osteoarthritis of left shoulder due to rotator cuff injury 02/15/2025 Travel 02/15/2025 Telephone [facility] [address] [place], [place] [address]danny [place] [address] Leland Brandon MD authroization 01/29/2025 Telephone [facility] [address] [place] [address] Leland Brandon MD Referral 01/29/2025 Refill [facility] [address] [place] [address] Leland Brandon MD Insomnia, unspecified type 01/28/2025 Refill [facility] [address] [place] [address] Sonia Treviño ANP Insomnia, unspecified type 01/25/2025 9:30 AM EDT Office Visit [facility] [address] [place], [place] [address]d[place] [address] Leland Brandon MD Dyspnea on exertion (Primary Dx); Hypoxia; Tobacco dependence syndrome; Chronic pain syndrome; Low back pain due to bilateral sciatica; Gait difficulty 01/25/2025 Telephone [facility] [address] [place] [address] Leland Brandon MD 01/25/2025 Travel 01/24/2025 Telephone [facility] [address] [place] [address] Lashae West MA chart prep 01/18/2025 Telephone [facility] [address] [place] [address] Lashae West [place] ocotber recalls 01/14/2025 Patient Outreach [facility] [address] [place] [address] Leland Brandon MD Transition Of Care (Tcm) (HDF- ) 01/03/2025 Refill [facility] [address] [place] [address] Leland Brandon MD Chronic pain syndrome; Insomnia, unspecified type 01/01/2025 Telephone [facility] [address] [place] [address] Leland Brandon MD Referral 12/11/2024 1:40 PM EDT Office Visit [facility] [address] [place] [address] Stacey Wade MD Hypertension, unspecified type (Primary Dx); Edema of right lower extremity; Low back pain due to bilateral sciatica; Chronic pain syndrome 12/11/2024 Orders Only [facility] External Provider, [facility] 12/11/2024 Travel 12/10/2024 Telephone [facility] [address] [place] [address] Leland Brandon MD Nurse Triage 12/07/2024 Telephone [facility] [address] [place] [address] Chrissie Cosme NP 12/06/2024 Refill [facility] [address] [place], [place] [phone] Leland Brandon MD Insomnia, unspecified type from [...] Description 04/10/2025 3:30 PM EDT Office Visit [facility] [address] [place] [address] Name, MD Leland [address] [place] [address] Health Maintenance Due Date Last Done Comments [...] PM EDT Narrative 02/15/2025 3:57 PM EDT [facility] [address] [place] [address] XRay Report Signed Patient: Steven Novak MR#: [id number] : 1965 Acct:[id number] Age/Sex: 59 / M ADM Date: 02/15/25 Loc: HO.HHCX Attending Dr: Ana Larios ELECTRONIC TRAIN CONTROL TECHNICIAN Ordering Physician: Ana Larios NP Date of Service: 02/15/25 Procedure(s): XR shoulder RT min 2V Accession Number(s): [id number] cc: Ana Larios NP Reason for Exam: [...] 02/15/25 1555 DD/ 1551 TD/TT: 02/15/25 1551 Induction Heat Treater: Procedure Note Donotuseinterpreter, Image - 02/15/2025 [facility] [address] [place] [address] XRay Report Signed Patient: Baron NovakR#: M [id number] : 1965Acct:[id number] Age/Sex: 59 / MADM Date: 02/15/25 Loc: HO.HHCX Attending Dr: Ana Larios ELECTRONIC TRAIN CONTROL TECHNICIAN Ordering Physician: Ana Larios NP Date of Service: 02/15/25 Procedure(s): XR shoulder RT min 2V Accession Number(s): [id number] cc: Ana Larios NP Reason for Exam: [...] 02/15/25 1555 DD/ 1551 TD/TT: 02/15/25 1551 Induction Heat Treater: us Ana Larios ELECTRONIC TRAIN CONTROL TECHNICIAN IMG XR PROCEDURES Final Result * VASC US Lower Extremity Venous Duplex Bilateral (12/11/2024 3:16 PM EDT) 12/11/2024 3:16 PM EDT Narrative [facility] - 12/12/2024 1:13 PM EDT [facility] [address] [place] [address] Ultrasound Report Signed Patient: Steven Novak MR#: Marie [id number] : 1965 Acct:[id number] Age/Sex: 59 / M ADM Date: 12/11/24 Loc: . Attending Dr: Chrissie Cosme Ordering Physician: Eliecer Bui MD Date of Service: 12/11/24 Procedure(s): US venous duplex LE BI Accession Number(s): [id number] cc: Stacey Wade MD; Eliecer Bui MD; [...] 12/12/24 0718 DD/ 1516 TD/TT: 12/11/24 1547 Induction Heat Treater: Procedure Note Donotuseinterpreter, Image - 12/12/[address] [address] Ultrasound Report Signed Patient: Michele Novak#: M [id number] : 1965Acct:[id number] Age/Sex: 59 / MADM Date: 12/11/24 Loc: HO.US Attending Dr: Chrissie Cosme Ordering Physician: Eliecer Bui MD Date of Service: 12/11/24 Procedure(s): US venous duplex LE BI Accession Number(s): [id number] cc: Stacey Wade MD; Eliecer Bui MD; [...] 12/12/24 0718 DD/ 1516 TD/TT: 12/11/24 1547 Induction Heat Treater: [facility] External Provider CV VASC ULAR PROCEDURES Final Result Performing Organization Address [facility]/ZIP Co de Phone Number [facility] [address] [place] [address] * Hepatitis C Antibody with Reflex to [...] Resul t Performing Organization Address [facility]/ZIP Co de Phone Number [facility] [address] [place] [phone] * HIV-1/2 Antigen and Antibodies, Fourth Generation, with Reflexes (10/14/2023 11:05 AM EDT) HIV AB/AG Nonreactive Nonreactive [facility] Comment:HIV-1 p24 Ag and/or HIV-1/HIV-2 Ab not detected.A test result that is nonreactive does not exclude thepossibility of exposure to or infection with HIV-1 and/orHIV-2. Nonreactive results in this assay for individualswith prior exposure to HIV-1 and/or HIV-2 may be due toantigen and antibody levels that are below the limit ofdetection of this assay.The [employer] HIV Ag/Ab Combo assay result andsupplemental assay results should be interpreted inconjunction with the patient's clinical presentation,history and other laboratory results. If the results areinconsistent with clinical evidence, additional testing issuggested to confirm the result. Blood Venous blood specimen / Unknown 10/14/2023 11:05 AM EDT 10/14/2023 1:15 PM EDT us Leland Brandon MD LAB BLOOD ORDERABLES Final Resul t [facility] [address] [place] [phone] * (ABNORMAL) Lipid Panel, Standard (10/14/2023 11:05 AM EDT) Triglycerides 105 <150 mg/dL [facility] Comment:Desirable Triglyceri de: less than 150 [...] 190 mg/dL HDL Cholesterol 69 >40 mg/dL [facility] Comment:Desirable HDL: great er than 40 mg/dL Note: This HDL assay may give artificially low results in patients with liver disease. Blood Venous blood specimen / Unknown 10/14/2023 11:05 AM EDT 10/14/2023 1:15 PM EDT us Leland Brandon MD LAB BLOOD ORDERABLES Final Resul t [facility] [address] [place] [phone] * Hm Colonoscopy (07/14/2023) Colonoscopy Normal Normal Comment:Normal Colonoscopy r epeat 10 years Leland Brandon MD HEALTH MAINTENANCE Final Result from Last 3 Months or Most Recently Relevant to Health Maintenance Insurance Care Teams Clinical Office Technician Relationship Specialty Start Date End Date Name, MD Leland [address] [place] [phone] PCP - General Family Medicine 08/26/15
--- OUTSIDE RECORDS SUMMARY | 2025-03-07 16:49 | XMS_ITS | Encounter Summary ---
Author Organization [employer] Address [address] [facility] 7t [place] [address] Care Team Providers Care Prn Physical Therapist Name Role Phone Name, Leland MIMS Primary Care Provider [phone] Reason for Visit * Reason Comments Med Refill Encounter Details Date Type Department Care Team (Late Contact Info) Description 10/22/[address] [facility] [address] [place] [phone] Name, MD Leland [address] [place] [address] Insomnia, unspecified type Social History Tobacco Use [...] 3:30 PM EDT Office Visit [facility] [address] [place] [address] Name, MD Leland [address] [place] [address] documented as of this encounter Visit Diagnoses Diagnosis Insomnia, unspecified type documented in this encounter Additional Health Concerns Assessment Noted Time PHQ-9 Depression Total Score: 0 09/07/19 23 1:16 PM EDT documented as of this encounter Care Teams Prn Physical Therapist Relationship Specialty Start Date End Date Name, MD Leland [address] [place] [address] PCP - General Family Medicine 08/26/15 documented as of this encounter
--- OUTSIDE RECORDS SUMMARY | 2025-03-07 16:49 | XMS_ITS | Encounter Summary ---
Author Organization [employer] Address [address] [facility] 7t [place] [address] Care Team Providers Care Automotive Parts Person Name Role Phone Name, Leland MIMS Primary Care Provider [phone] Reason for Visit * Reason Onset Date Comments Referral 07/20/2022 Encounter Details Date Type Department Care Team ([facility] st Contact Info) Description 07/20/2022 Telephone [facility] [address] [place], [place] [phone] Name, MD Leland [address] [place] [address] Referral Social History Tobacco Use Types Packs/Day [...] - 07/20/2022 10:13 AM EST Marva calling [facility] for new or existing referrals for [facility], [address], [place] [address], Phone #: , Reason for referral is Chronic Severe pain left foot. Marva advised pt has an X-ray done and patient does have the symptom of Chronic pain. Advised Marva with [facility] will forward to team nurse for new referral and marketing programs specialist for existing referral. Please call Marva at [phone] documented in this encounter Plan of Treatment Upcoming Encounters Date Type Department Care Team (Late st Contact Info) Description 04/10/2025 3:30 PM EDT Office Visit [facility] [address] [place] [address] Name, MD Leland [address] [place] [address] documented as of this encounter Visit Diagnoses Not on filedocumented in this encounter Care Teams Automotive Parts Person Relationship Specialty Start Date End Date Name, MD Leland [address] [place] [address] PCP - General Family Medicine 08/26/15 documented as of this encounter
--- OUTSIDE RECORDS SUMMARY | 2025-03-07 16:49 | XMS_ITS | Encounter Summary ---
Author Organization [employer] Address [address] [facility] 7t [place] [address] Care Team Providers Care Mold Sprayer Name Role Phone Name, Leland MIMS Primary Care Provider [phone] Reason for Visit * Reason Onset Date Comments FYI 07/26/2024 Encounter Details Date Type Department Care Team ([facility] st Contact Info) Description 07/26/2024 Telephone [facility] [address] [place], [place] [phone] Name, MD Leland [address] [place] [address] FYI Social History Tobacco Use Types Packs/Day [...] AM EST Tc from Sol with [facility] stating that they contact Pt but he refused Both time and they are only allowed to try and offer the Services twice. So they said that they were not going to keep trying. If any questions contact Sol at [phone] documented in this encounter Plan of Treatment Upcoming Encounters Date Type Department Care Team (Late st Contact Info) Description 04/10/2025 3:30 PM EDT Office Visit [facility] [address] [place] [address] Name, MD Leland [address] [place] [address] documented as of this encounter Visit Diagnoses Not on filedocumented in this encounter Additional Health Concerns Assessment Noted Time PHQ-9 Depression Total Score: 0 09/14/19 24 3:10 PM EDT documented as of this encounter Care Teams Mold Sprayer Relationship Specialty Start Date End Date Name, MD Leland [address] [place] [phone] PCP - General Family Medicine 08/26/15 documented as of this encounter
--- OUTSIDE RECORDS SUMMARY | 2025-03-07 16:49 | XMS_ITS | Encounter Summary ---
Author Organization [employer] Address [address] [facility] [address] 7[address] [place] [address] Care Team Providers Care Global Marketing Operations Manager Name Role Phone Name, Leland MIMS Primary Care Provider [phone] Reason for Visit * Reason Comments Med Refill Encounter Details Date Type Department Care Team (Late st Contact Info) Description 07/25/2024 Refill [facility] [address] [place], [place] [phone] Stacey Wade MD [address] [place], [place] [phone] Lumbago with sciatica, right side Social History [...] PM EDT Office Visit [facility] [address] [place] [address] Name, MD Leland [address] [place] [address] documented as of this encounter Visit Diagnoses Diagnosis Lumbago with sciatica, right side documented in this encounter Additional Health Concerns Assessment Noted Time PHQ-9 Depression Total Score: 0 09/14/19 24 3:10 PM EDT documented as of this encounter Care Teams Global Marketing Operations Manager Relationship Specialty Start Date End Date Name, MD Leland [address] [place] [address] PCP - General Family Medicine 08/26/15 documented as of this encounter
--- OUTSIDE RECORDS SUMMARY | 2025-03-07 16:49 | XMS_ITS | Clinical Summary ---
Author Organization [facility] Address [address] [place] [address] Care Team Providers Care Auto Body Repairer Fiberglass Name Role Phone No, Pcp Primary Care [...] patient's age to complete this topic Insurance [facility] Care Teams Auto Body Repairer Fiberglass Relationship Specialty Start Date End Date No, Pcp HIREN PCP - General 01/29/22
== END 2025-03-07 12:40 | disposition home or self-care (01) ==
LOC: HO.PMCPRC 11:54
PROVIDERS: PCP Internal Medicine Geriatric Medicine; Visit Provider Internal Medicine
DX: M70.62 Trochanteric bursitis, left hip (principal); M53.3 Sacrococcygeal disorders, not elsewhere classified
CPT/HCPCS: 20610; 27096; 77002

== ENCOUNTER 2025-04-04 10:42 | Outpatient (AMB) | payer OTHER, SELFPAY ==
--- OUTSIDE RECORDS SUMMARY | 2025-04-03 00:27 | XMS_ITS | Encounter Summary ---
Author Organization [facility] Address [address] [place] [address] Care Team Providers Care Exhibits Manager Name Role Phone Name, Leland MIMS Primary Care Provider [phone] Reason for Visit * Reason Comments Leg Pain Encounter Details Date Type Department Care Team (Late st Contact Info) Description 2025 12:27 AM EDT - 2025 3:01 AM EDT Emergency [facility] Emergency [address] [place] [address] Haim Garland MD [address] [place] [address] Deep vein thrombosis (DVT) of proximal vein of left lower extremity, unspecified chronicity (CMS/HCC V24, CMS/HCC V28) (Primary Dx); Pain Discharge Disposition: Home or Self Care Social History Tobacco Use Types Packs/Day Years Used Date Smoking Tobacco: Unknown Tobacco Cessation:Counseling Given: Not Answered Sex and Gender Information Value Date Recorded Sex Assigned at Not on file Legal Sex Male 11:37 PM EST Gender Identity Not on file Sexual Orientation Not on file documented as of this encounter Last Filed Vital Signs Vital Sign Reading Time Taken Comments Blood Pressure 138/83 04/02/2025 11:13 PM EDT Pulse 88 04/02/2025 11:13 PM EDT Temperature 37.2 C (99 F) 04/02/2025 11:13 PM EDT Respiratory Rate 20 04/02/2025 11:13 PM EDT Oxygen Saturation 99% 04/02/2025 11:13 PM EDT Inhaled Oxygen Concentration - - Weight 130 kg (286 lb 14.4 oz) 04/02/2025 11:19 PM EDT Height 182.9 cm (6') 04/02/2025 11:13 PM EDT Body Mass Index 38.91 04/02/2025 11:13 PM EDT documented in this encounter Functional Status * Calculated C-SSRS Risk Score (Lifetime/Recent) Answer Date of Assessment Author No Risk Indicated 04/02/2025 11:12 PM EDT Marylu Vega RN * [place] Suicide Severity Rating Scale (Screener/Recent Self-Report) Question Answer Date of Assessment Author 1. Wish to be (Past 1 Month) No 025 11:12 PM EDT Marylu Vega RN 2. Non-Specific Active Suici beverley Thoughts (Past 1 Month) No 04/02/2025 11:12 PM EDT Ragini Vega RN 6. Suicidal Behavior (Lifetime) No 11:12 PM EDT Marylu Vega RN documented as of this encounter Discharge Instructions * Discharge Instructions* Haim Garland MD - 2025 2:16 AM EDT DIAGNOSIS / RESULTS / PROCEDURES (what was done): You came to the ED for leg pain and swelling. You have a blood clot in your leg. You are being restarted on Lovenox. INSTRUCTIONS (what you need to do): Call the vascular clinic tomorrow to discuss when you should be seen. If begin having chest pain or shortness of breath, return to the ED immediately or call 911. MEDICATIONS (what you need to take): Lovenox twice daily documented in this encounter Medications at Time of Discharge ammonium lactate (AmLactin) 12 % lotion Apply topically if needed for dry skin. 400 g 04/19/2024 5 DICLOFENAC SODIUM TOP Diclofenac Sodium 1 % Gel- Apply 4 g topically 2 times daily. - Apply externally enoxaparin (Lovenox) 120 mg/0.8 mL syringe injection Inject 0.8 mL (120 mg total) under the skin every 12 (twelve) hours. 60 each 2025 5 gabapentin (NEURONTIN) 300 mg capsule Take 1 capsule (300 mg total) by mouth 2 (two) times a day. lisinopriL (PRINIVIL,ZESTRI L) 10 mg tablet Take 1 tablet (10 mg total) by mouth 1 (one) time each day. LORazepam (ATIVAN) 1 mg tablet Take 2 Tabs by mouth at bedtime. - Oral methadone (DOLOPHINE) 10 mg tablet Take 10 mg by mouth 3 times daily. - Oral oxyCODONE (ROXICODONE) 20 mg immediate release tablet Take by mouth 3 times daily. - Oral documented as of this encounter Ordered Prescriptions Prescription Sig Dispense Quantity Refills Last Filled Start Date End Date enoxaparin (Lovenox) 120 mg/0.8 mL syringe injection Inject 0.8 mL (120 mg total) under the skin every 12 (twelve) hours. 60 each 2025 05/03/2025 documented in this encounter Discharge Disposition Disposition Code Departure Means Destination Comment s Home or Self Care Patient alert and oriented at time of discharge. Patient informed to return to ED with worsening symptoms. Patient informed to follow up with PCP. Patient's medications reviewed and sent to preferred pharmacy. Patient left in a wheelchair accompanied by this RN. documented in this encounter Progress Notes * MIKE Horton - 04/02/2025 11:15 PM EDT Patient evaluated in triage, history of blood clots on Xarelto worsening left leg pain, no coolnessnumbness or weakness. Limited physical exam performed in medical screening triage: Gen: Alert & Oriented Cardiac: Appears well perfused Lungs: No increased work of breathing, no accessory muscle use Ext: With erythema, tenderness with palpation and compression of the left calf ------- PLAN ------- Plan: Additional evaluation needed to rule out an emergency medical condition. ED * Marylu Vega RN - 04/02/2025 11:11 PM EDT Patient reports left leg pain that radiates from the back of his upper leg down worsening over the past week. Denies swelling but reports history of blood clot in his leg. Patient is on blood thinners xarelto * Haim Garland MD - 04/02/2025 11:06 PM EDT Emergency Medicine Note Patient Name: Steven Subramanian Initial Evaluation: 04/02/2025 : 1965 Patient's PCP: Leland Brandon MD Emergency Physician: Haim Garland MD History of Present Illness Chief Complaint: Chief Complaint Patient presents with Leg Pain HPI: 60-year-old male presents for left lower extremity pain and swelling. Patient has a history ofDVT in that leg. He was previously on Lovenox had an IVC filter installed and was transition to apixaban. For unclear reasons his dose was reduced from twice daily to daily recently. For the last week he has had pain and swelling of the left lower extremity that makes it difficult to ambulate. No chest pain or shortness of breath. Previous History Medical History[1] Surgical History[2] Social History[3] Family History[4] has no known allergies. Medications Ordered Prior to Encounter[5] Physical Exam ED Triage Vitals [04/02/25 2313] Temp Heart Rate Resp BP 37.2 ??C (99 ??F) 88 20 138/83 SpO2 Temp Source Heart Rate Source Patient Position 99 % Oral -- -- BP Location FiO2 (%) -- -- GENERAL: Well-Appearing SKIN: Warm, dry, normal for ethnicity. No rashes. HEENT: Normal sclera, noninjected nonicteric CHEST: Normal peripheral perfusion, no edema PULMONARY: Normal respiratory effort ABDOMINAL: Nondistended NEURO: Alert and oriented, moving all extremities equally PSYCHIATRIC: Normal affect, fluid speech, good eye contact and appropriate demeanor. MSK: Left leg swollen, Tender to palpation Results Labs Reviewed MAGNESIUM COMPREHENSIVE METABOLIC PANEL CBC AND DIFFERENTIAL Narrative: The following orders were created for panel order CBC and differential. Procedure Abnormality Status --------- ------ CBC auto differential[[id number]] In process Please view results for these tests on the individual orders. PROTHROMBIN TIME WITH INR ACTIVATED PARTIAL THROMBOPLASTIN TIME CBC WITH AUTO DIFFERENTIAL HEPARIN AND LOW MOLECULAR WEIGHT ANTI XA LEVEL CARDIOLIPIN ANTIBODIES, IGG, IGM AND IGA LUPUS ANTICOAGULANT WITH REFLEX TO MIXING STUDIES Abnormal Labs Reviewed - No abnormal labs to display Vascular US Duplex Lower Extremity Venous Left Final Result Addendum (preliminary) ADDENDUM: This report was discussed with Dr. Garland on 2025 02:12:00 EDT. This document has been electronically signed by: Julia White on 2025 02:12:21 Final 1. Positive for deep venous thrombosis with occlusive thrombus at the left femoral vein, left popliteal vein, and left peroneal vein. This document has been electronically signed by: Miller Ramos MD on 2025 02:06:42 I have discussed the incidental/abnormal imaging and/or lab abnormalities with the patient and haveinstructed them the need for further evaluation and workup with their primary care doctor. Medical Decision Making Differential Diagnosis: DVT, PE, hypercoagulability MDM: 60-year-old male presents for left leg pain and swelling. Possible DVT, evaluate duplex study.No history of trauma, defer any plain films. No chest pain or shortness of breath or other symptomsconcerning for PE. Social determinants of health affecting disposition: Patient's language barrier limit patient's treatment and diagnosis. Clinical Impression: Left leg DVT SEPSIS Exemption: [ x ] It is unlikely this patient has sepsis at the time of my evaluation. Medications enoxaparin (LOVENOX) injection 135 mg (135 mg subcutaneous Given 04/03/25212) ED Course as of 04/03/25220 Wed 2025 0143 Vascular US Duplex Lower Extremity Venous Left Wet read is positive for DVT. Admit for breakthrough DVT while on anticoagulation. [MG] ED Course User Index [MG] Haim Garland MD Clinical Impressions as of 04/03/25220 Pain Deep vein thrombosis (DVT) of proximal vein of left lower extremity, unspecified chronicity (CMS/HCC V24, CMS/HCC V28) Procedures Procedures Diagnosis 1. Deep vein thrombosis (DVT) of proximal vein of left lower extremity, unspecified chronicity (CMS/HCC V24, [facility] V28) 2. Pain Vascular US Duplex Lower Extremity Venous Left Vascular US Duplex Lower Extremity Venous Left Disposition Discharge ED Prescriptions Medication Sig Dispense Start Date End Date Auth. Provider enoxaparin (Lovenox) 120 mg/0.8 mL syringe injection Inject 0.8 mL (120 mg total) under the skin every 12 (twelve) hours. 60 each 2025 05/03/2025 MD Haim Meléndez MD 04/03/25 0148 Haim Garland MD 04/03/25 0154 [1] No past medical history on file. [2] No past surgical history on file. [3] [4] No family history on file. [5] No current facility-administered medications on file prior to encounter. Current Outpatient Medications on File Prior to Encounter Medication Sig Dispense Refill ammonium lactate (AmLactin) 12 % lotion Apply topically if needed for dry skin. 400 g 0 DICLOFENAC SODIUM TOP Diclofenac Sodium 1 % Gel- Apply 4 g topically 2 times daily. - Apply externally gabapentin (NEURONTIN) 300 mg capsule Take 1 capsule (300 mg total) by mouth 2 (two) times a day. lisinopriL (PRINIVIL,ZESTRIL) 10 mg tablet Take 1 tablet (10 mg total) by mouth 1 (one) time each day. LORazepam (ATIVAN) 1 mg tablet Take 2 Tabs by mouth at bedtime. - Oral methadone (DOLOPHINE) 10 mg tablet Take 10 mg by mouth 3 times daily. - Oral oxyCODONE (ROXICODONE) 20 mg immediate release tablet Take by mouth 3 times daily. - Oral Haim Garland MD 04/03/25 0221 documented in this encounter Plan of Treatment Pending Results Name Type Priority Associated Diagnoses Date /Time Cardiolipin antibodies, IgG, IgM and IgA Lab STAT 2025 2:13 AM EDT Lupus anticoagulant with reflex to mixing studies Lab STAT 025 2:13 AM EDT Scheduled Orders Name Type Priority Associated Diagnoses Orde r Schedule Cardiolipin antibodies, IgG, IgM and IgA Lab STAT Once for 1 Occu rrences starting 2025 until 2025 Lupus anticoagulant with reflex to mixing studies Lab STAT Once fo r 1 Occurrences starting 2025 until 2025 documented as of this encounter Procedures Procedure Name Priority Date/Time Associated Diagnosis Comments CBC WITH AUTO DIFFERENTIAL STAT 2025 1:32 AM EDT ACTIVATED PARTIAL THROMBOPLASTIN TIME STAT 2025 1:32 AM EDT PROTHROMBIN TIME WITH INR STAT 2025 1:32 AM EDT HEPARIN AND LOW MOLECULAR WEIGHT ANTI XA LEVEL STAT Add-on 2025 1:32 AM EDT CBC AND DIFFERENTIAL STAT 2025 1:32 AM EDT MAGNESIUM STAT 2025 1:32 AM EDT COMPREHENSIVE METABOLIC PANEL STAT 2025 1:32 AM EDT VAS US DUPLEX LOWER EXT VENOUS LEFT STAT 2025 1:02 AM EDT Pain documented in this encounter Results * (ABNORMAL) Low molecular wgt heparin (2025 1:32 AM EDT) Heparin Anti-Xa <0.04(L) 0.30 - 0.70 I Unit/mL LAB COAGULATION METHOD 2025 2:47 AM EDT [facility] Blood Venous blood specimen / Unknown Venipuncture / Unknown 2025 1:32 AM EDT 2025 2:33 AM EDT Narrative [facility] - 2025 2:47 AM EDT Therapeutic range listed is for Unfractionated Heparin. LMW Heparin therapeutic range: 0.50-1.20 IU/mL us Haim Garland MD LAB BLOOD ORDERABLES Final Resu lt [facility] [address] [place] [address], [place] [phone] * (ABNORMAL) CBC auto differential (2025 1:32 AM EDT) WBC 11.4(H) 4.8 - 10.8 K/mcL LAB HEMETOLOGY METHOD 2025 2:29 AM EDT [facility] RBC 3.80(L) 4.50 - 5.50 M/mcL LAB [facility] Hemoglobin 11.3(L) 13.5 - 17.5 g/dL LAB HEMETOLOGY METHOD 2025 2:29 AM EDT [facility] Hematocrit 36.0(L) 42.0 - 54.0 % LAB HEMETOLOGY METHOD 2025 2[facility] MCV 94.2 79.0 - 98.0 FL LAB HEMETOLOGY METHOD 2025 2:[facility] MCH 29.6 27.0 - 32.0 pcg LAB HEMETOLOGY METHOD 2025 2:29 AM EDT [facility] MCHC 31.4(L) 32.0 - 37.0 g/dL LAB HEMETOLOGY METHOD 2025 2:29 AM EDT [facility] RDW 15.3(H) 11.0 - 15.0 % LAB HEMETOLOGY METHOD 2025 2[facility] Platelets 241 130 - 400 K/mcL LAB HEMETOLOGY METHOD 2025 2:29 AM [facility] MPV 10.5 7.0 - 11.0 FL LAB HEMETOLOGY METHOD 2025 2:29 AM [facility] NRBC 0.0 <1.0 % LAB HEMETOLOGY METHOD 2025 2:29 AM [facility] NRBC Absolute 0.00 <0.10 K/mcL LAB HEMETOLOGY METHOD 2025 2:29 AM [facility] Neutrophils Relative 74.9 % LAB HEMETOLOGY METHOD 2025 2:29 AM [facility] Lymphocytes Relative 12.9 % LAB HEMETOLOGY METHOD 2025 2:29 AM [facility] Monocytes Relative 9.9 % LAB HEMETOLOGY METHOD 2025 2:29 AM [facility] Eosinophils Relative 1.5 % LAB HEMETOLOGY METHOD 2025 2:29 AM [facility] Basophils Relative 0.1 % LAB HEMETOLOGY METHOD 2025 2:29 AM [facility] Immature Granulocytes Relative 0.7 % LAB HEMETOLOGY METHOD 2025 2:29 AM [facility] Neutrophils Absolute 8.55(H) 1.50 - 7.00 K/mcL LAB HEMETOLOGY METHOD 2025 2:29 AM [facility] Lymphocytes Absolute 1.47 1.00 - 5.00 K/mcL LAB HEMETOLOGY METHOD 2025 2:29 AM [facility] Monocytes Absolute 1.13(H) 0.20 - 1.00 K/mcL LAB HEMETOLOGY METHOD 2025 2:29 AM [facility] Eosinophils Absolute 0.17 0.00 - 0.50 K/mcL LAB HEMETOLOGY METHOD 2025 2:29 AM EDT [facility] Basophils Absolute 0.01 0.00 - 0.20 K/[facility] LAB HEMETOLOGY METHOD 2025 2:29 AM EDT [facility] Immature Granulocytes Absolute 0.08(H) 0.00 - 0.03 K/[facility] LAB HEMETOLOGY METHOD 2025 2:29 AM EDT [facility] Blood Venous blood specimen / Unknown Venipuncture / Unknown 2025 1:32 AM EDT 2025 2:21 AM EDT Kristine MCKEON LAB BLOOD ORDERABLES Fin al Result Performing Organization Address [facility]/ZIP Co de Phone Number [facility] [address] [place] [address], * APTT (2025 1:32 AM EDT) aPTT 27.8 24.1 - 39.3 sec LAB COAGULATION METHOD 2025 2:40 AM EDT [facility] Blood Venous blood specimen / Unknown Venipuncture / Unknown 2025 1:32 AM EDT 2025 2:33 AM EDT Kristine MCKEON LAB BLOOD ORDERABLES Fin al Result [facility] [address] [place] [address], * Protime-INR (2025 1:32 AM EDT) Protime 10.8 10.6 - 13.9 sec LAB COAGULATION METHOD 2025 2:40 AM EDT [facility] INR 0.9 LAB COAGULATION METHOD 2025 2:40 AM [facility] Blood Venous blood specimen / Unknown Venipuncture / Unknown 2025 1:32 AM EDT 2025 2:33 AM EDT us Kristine MCKEON LAB BLOOD ORDERABLES Fin al Result [facility] [address] [place] [address], [place] [phone] * (ABNORMAL) Comprehensive Metabolic Panel (CMP) (2025 1:32 AM EDT) Sodium 139 133 - 145 mmol/L LAB CHEMISTRY METHOD 2025 3:03 AM [facility] Potassium 4.1 3.5 - 5.5 mmol/L LAB CHEMISTRY METHOD 2025 3:03 AM [facility] Chloride 104 96 - 110 mmol/L LAB CHEMISTRY METHOD 2025 3:03 AM [facility] CO2 30 21 - 32 mmol/L LAB CHEMISTRY METHOD 2025 3:03 AM [facility] Anion Gap 5 3 - 11 LAB CHEMISTRY METHOD 2025 3:03 AM [facility] Glucose 108(H) 70 - 100 mg/dL LAB CHEMISTRY METHOD 2025 3:03 AM [facility] BUN 28(H) 5 - 25 mg/dL LAB CHEMISTRY METHOD 2025 3:03 AM [facility] Creatinine 0.90 0.70 - 1.30 mg/dL LAB CHEMISTRY METHOD 2025 3:03 AM [facility] eGFR 97 >=60 mL/min/1. 73m2 LAB CHEMISTRY METHOD [facility]25 3:[facility] Comment:Calculation based on the Chronic Kidney Disease Epidemiology Collaboration (CKD-EPI) equation refit without adjustment for race. BUN/Creatinine Ratio 31.1 LAB CHEMISTRY METHOD 2025 3:03 AM [facility] Calcium 9.0 8.5 - 10.5 mg/dL LAB CHEMISTRY METHOD 2025 3:03 AM [facility] AST (SGOT) 13 10 - 42 unit/L LAB CHEMISTRY METHOD 2025 3:03 AM [facility] ALT (SGPT) 24 10 - 60 unit/L LAB CHEMISTRY METHOD 2025 3:03 AM [facility] Alkaline Phosphatase 160(H) 42 - 121 unit/L LAB CHEMISTRY METHOD 2025 3:03 AM [facility] Total Protein 6.0 6.0 - 8.0 g/dL LAB CHEMISTRY METHOD 2025 3:03 AM [facility] Albumin 3.3 3.2 - 5.0 g/dL LAB CHEMISTRY METHOD 2025 3:03 AM [facility] Total Bilirubin 0.1 0.0 - 1.4 mg/dL LAB CHEMISTRY METHOD 2025 3:03 AM [facility] Blood Venous blood specimen / Unknown Venipuncture / Unknown 2025 1:32 AM EDT 2025 2:21 AM EDT us Kristine MCKEON LAB BLOOD ORDERABLES Fin al Result [facility] [address] [place] [address], * Magnesium (2025 1:32 AM EDT) Magnesium 2.1 1.9 - 2.6 mg/dL LAB CHEMISTRY METHOD 2025 2:49 AM EDT [facility] Blood Venous blood specimen / Unknown Venipuncture / Unknown 2025 1:32 AM EDT 2025 2:21 AM EDT us Kristine MCKEON LAB BLOOD ORDERABLES Fin al Result [facility] [address] [place] [address], [place] [phone] * Vascular US Duplex Lower Extremity Venous Left (2025 1:02 AM EDT) Anatomical Region Laterality Modality Vascular, Abdomen Ultrasound 2025 2:06 AM EDT Addenda Addendum by Miller Ramos MD on 2025 2:12 AM EDT ADDENDUM: This report was discussed with Dr. Garland on 2025 02:12:00 EDT. This document has been electronically signed by: Julia White on 2025 02:12:21 Impressions 2025 2:06 AM EDT 1. Positive for deep venous thrombosis with occlusive thrombus at the left femoral vein, left popliteal vein, and left peroneal vein. This document has been electronically signed by: Miller Ramos MD on 2025 02:06:42 Narrative 2025 2:06 AM EDT INDICATION: edema Venous duplex ultrasound left lower extremity Comparison: None provided Findings: Occlusive thrombus identified at the left femoral vein, left popliteal vein, and left peroneal vein. The left posterior tibial vein is not visualized on this exam. The left common femoral vein and left saphenofemoral junction appear patent. No popliteal cyst. Procedure Note Miller Ramos MD - 2025 INDICATION: edema Venous duplex ultrasound left lower extremity Comparison: None provided Findings: Occlusive thrombus identified at the left femoral vein, left popliteal vein, and left peroneal vein. The left posterior tibial vein is not visualized on this exam. The left common femoral vein and left saphenofemoral junction appear patent. No popliteal cyst. IMPRESSION: 1. Positive for deep venous thrombosis with occlusive thrombus at theleft femoral vein, left popliteal vein, and left peroneal vein. This document has been electronically signed by: Miller Ramos MD on 2025 02:06:42 Kristine MCKEON CV VASCULAR PROCEDURES E dited Result - Final documented in this encounter Visit Diagnoses Diagnosis Deep vein thrombosis (DVT) of proximal vein of left lower extremity, unspecified chronicity (CMS/HCC V24, CMS/HCC V28)- Primary Pain Generalized pain documented in this encounter Administered Medications Inactive Administered Medications - up to 3 most recent administrations Medication Order MAR Action Action Date Dose Rate Site bacitracin ointment packet 1 Application, Topical, Once, On Tue04/03/25 at 0245, For 1 dose, Apply to cox Given 2025 3:00 AM EDT 1 Application enoxaparin (LOVENOX) injection 135 mg 135 mg (rounded from 130 mg = 1 mg/kg 130 kg), subcutaneous, Once, On Tue04/03/25 at 0200, For 1 dose, Indication: VTE/PE Treatment Given 2025 2:13 AM EDT 135 mg Left Upper Abdomen documented in this encounter Active and Recently Administered Medications Times are shown in EDT. Scheduled Medication Order 04/01/2025 04/02/2025 2025 bacitracin ointment packet (COMPLETED) 1 Application, Topical, Once, On Tue04/03/25 at 0245, For 1 dose, Apply to cox 0300 (Given - Provid er: Ezequiel Krishnamurthy RN) enoxaparin (LOVENOX) injection 135 mg (COMPLETED) 135 mg (rounded from 130 mg = 1 mg/kg 130 kg), subcutaneous, Once, On Tue04/03/25 at 0200, For 1 dose, Indication: VTE/PE Treatment 0213 (Given - Provid er: Ezequiel Krishnamurthy RN) documented in this encounter Orders Transfer Count Last Ordered Date First Orde red Date ED TO FLOOR BED REQUEST 1 2025 documented in this encounter Care Teams Exhibits Manager Relationship Specialty Start Date End Date Name, MD L[facility] [address] [facility] [place] PCP - General 01/06/15 documented as of this encounter
--- NOTE | 2025-04-04 10:43 | A.OFFVIS_ITS ---
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 The pain has been present for approximately eight months and has progressively wors ened over time. The patient denies any falls during this period. The pain is primarily located in the left hip and radiates to the groin area. The patient reports significant difficulty in weight-bearing activities, such as walking or getting out of bed, due to the pain. He describes the sensation as if the leg is twisting, making it challenging to place the foot on the ground. Previous interventions included a left therapeutic greater trochanteric bursa injection and a left SI joint injection on March 07, which did not provide any pain relief. The patient has also tried lumbar spine epidural steroid injections with minimal relief. He is currently on methadone and has tried Celebrex and gabapentin without significant improvement. The patient has been prescribed meloxicam but has not yet taken it. He expresses a preference for strong pain relief that is non-narcotic and will trial meloxicam. Denies any recent cough, cold, infection, fever or any significant changes in medical hi story since last office visit. - Onset: Approximately eight months ago - Quality: Described as twisting sensation in the leg - Location: Left hip radiating to the groin - Exacerbating factors: Weight-bearing activities such as walking or getting out of bed - Relieving factors: None mentioned - Impact: Difficulty placing foot on the ground, affecting mobility Past Procedures: 03/07/25: Left therapeutic GTB and left SIJ steroid injections-0% pain relief 12/27/24: Bilateral L4-L5 TFESI-60% pain relief PRIOR: The patient is a 59-year-old male presenting with chronic back pain. He has suffered from back pain for around 30 years, attributed to degenerative disc disease, lumbar spinal stenosis, and a herniated disc at L4-L5. He has been evaluated by [facility], and decompression surgery was discussed, but he opted to try injections first. His pain is multifactorial, involving disc degeneration, arthritis, and spinal stenosis, with pinched nerve roots and grade 1 slippage at L4-L5. The pain radiates from the middle of the back to both legs, to anterior thighs and shins and lateral lower legs. He also has foot ulcers under care of [facility] and presents with natalia wrapped bilateral lower extremities. Pain is constant with movements such as bending, extending, walking, and sitting. [facility] 10/26/24 Francisco Velez PA-C Mr colindres is here in follow-up. Please refer to my last note for the specifics of his problem. He came back today after starting physical therapy, but more less it did not help all that much. Today's visit was done with the help of my cardiovascular surgical tech and motorcycle mechanic apprentice Katlin. The patient describes ongoing issues with his back pain which he has had for 30 years after he fell out of a 3rd or building. He also has the bilateral leg pain with standing and walking. We had previously reviewed his films and he has a grade 1 spondylolisthesis at L4-5 with moderate to severe stenosis at that level. He also has moderate stenosis at L3-4. We had a lengthy discussion about what surgery would entail. Specifically the goals of surgery at L4-5 with a spondylolisthesis would be to treat the back pain and the leg pain. We did admonished him however the success rate for the back pain is 60-70%, and given that he is had the pain now for 30 years too hard to predict if this would c ompletely go away after surgery, in fact we would likely predict it would not, but it may get slightly better. With regard to the leg pain, if he was not interested in treating the back pain and was accepting of that as a lifelong issue that may just be with him, a simple decompression could be done at L4-5. That would address the leg pain but again would not address the back pain. For now, he does not want to consider surgery at all. He is interested in seeing if there any injections that can help him so I will send him back to the pain management center here at [place] who originally sent him to us to be re- evaluated. PRIOR: The patient is a 59-year-old male with complex medical history, including recent hospitalization for DVT, left lower extremity cellulitis and sepsis, presenting with chronic low back pain with worsening radiculopathy for the past five months. Denies any recent injury, trauma, or falls. He describes the pain as severe and stabbing, originating in the lower back and radiating down the left leg, affecting both anterior and posterior aspects. Reports chronic venous insufficiency with previous history of DVTs and PEs and currently on Xarelto per patient. Numbness, tingling, and urinary incontinence accompany the pain, causing significant limitations to mobility, as he is unable to walk more than two minutes without a break. The patient is currently managing the condition with Tylenol and gabapentin. He is on methadone therapy for opioid dependence. Reports increased left leg pain due to an ongoing edema and pain with healing ulcers in anterior shins bilaterally without pathological discharge or tenderness. Currently, he is unable to pursue formal physical therapy due to significant low back pain with leg pain which limits his walking capacity and movements. Lumbar spine MRI was completed last month, noted for multilevel lumbar spondylosis resulting in grade 1 anterolisthesis L4-5 and multilevel central spinal canal and neuroforamina stenosis more conspicuous at L4-5 and to a lesser extent L2-3, L3-4 and L5-S1 levels. Epidural lipomatosis from L3 to sacrum. Patient denies previous spine surgical surgery or injections or recent physical or chiropractic therapy. - Onset: Several years ago, worsening in the past five months. - Quality: Stabbing, shooting, aching, numbness, tingling, burning. - Primary location: Low back. - Radiation: Down the entire left leg, affecting anterior, lateral, and posterior aspects. Intermittently affecting right leg. - Exacerbating Factors: Walking >2 min, bending forward or backward, climbing stairs - Alleviating Factors: Medications (partial relief). - Impact: Unable to perform daily activities without interruption; the significant impact on mobility and function, and sleep. - Affect: Pain causes significant limitations in mobility, daily activities and sleep. - Analgesia: Patient currently on Tylenol, gabapentin, tizanidine; current use of methadone for opioid dependence. - Adverse Effects: Reports difficulty in daily function, no specific side effects detailed from medications. - Activities of Daily Living: Severely limited; cannot walk more than two minutes without stopping. - Aberrant Drug-Related Behaviors: History of opioid use, currently managed with methadone prescribed through a program. [facility] Medical History Benign essential tremor COPD (chronic obstructive pulmonary disease) Dyspnea Nocturnal hypoxia Hyperlipidemia History of recurrent deep vein thrombosis (DVT) Chronic back pain Methadone maintenance therapy patient REAGAN (obstructive sleep apnea) Personal history of nicotine dependence Thrombosed external hemorrhoid Morbid obesity Hypertension Chronic pulmonary embolism Current use of anticoagulant therapy Surgical History Hx of colonoscopy History of excision of mass Family History Father History of prostate cancer Social History Household Members: Friend(s) Alcohol intake: former Year quit: 2023 Patient Tobacco Use Status: Former Tobacco user Tobacco use type: Cigarette Years Smoked: onset 14, 1/2-1ppd x 42yrs, 30pyh Current occupational status: disabled Review of Systems Const All systems reviewed & are unremarkable except as noted in HPI and below Physical Exam General: Appears afebrile. Alert and oriented. Mood and affect appropriate. Follows and participates in conversation appropriately. Respiratory effort is unlabored. No cough. Reports dyspnea on exertion. Able to transition from sit to stand with assistance. Uses cane with ambulation. Ambulates with antalgic gait with limping. General: Yes no CVA tenderness Back/Spine/Pelvis Other: Limited lumbar ROM due to pain. Lumbar flexion, bending and extension reproduce mild to moderate pain. Positive facet loading bilaterally. Left groin pain with I/E left hip rotations. Mild TTP to left GTB. Strength 5/5 right and 4/5 left hip flexion due to pain. TTP over midline and paraspinals L3-S1. DTR intact, diminished bilaterally. Valsalva maneuvr is negative. Back: no CVA tenderness Cervical Spine: loss of normal cervical lordosis, cervical muscular tenderness, pain with cervical ROM and No Cervical spine tenderness Thoracic/Lumbar Spine: thoracic and lumbar spine normal to inspection, No Thoracic/lumbar spine scar(s), Lasegue's sign negative, straight leg raise negative bilaterally, pain with thoraco-lumbar ROM, paraspinal muscle tenderness, thoraco-lumbar ROM limited, No thoracic spinal tenderness and lumbar spinal tenderness (L3-S1) Pelvis: buttock tenderness on the left Sacroiliac joints: on the right nontender and on the left (+Judah's, +Stinchfield, +Pelvic compression) tender to palpation Results Reviewed Results Reviewed: MR LUMBAR SPINE WITHOUT CONTRAST 07/16/24 CLINICAL INFORMATION: Severe low back pain. Neurogenic claudication. COMPARISON: None available. TECHNIQUE: MRI of the lumbar spine was obtained using routine sequences without contrast. FINDINGS: Last rib-bearing vertebra labeled T12. No bone marrow STIR signal abnormality. Multilevel marginal osteophyte formation and disc desiccation from T12-L1 to L5-S1. Grade 1 anterolisthesis L4-5. There is a 12 mm intrinsic hyperintense T1 and T2 bone lesion on the posterior right L1 vertebra likely intraosseous hemangioma. The conus medullaris ends at superior endplate of L1 with normal signal. Prominent epidural fat in a circumferential fashion from L3 to the sacrum. T12-L1: Facet joint hypertrophy as well as ligamentum flavum. Broad-based disc bulging. Bilateral neuroforamina narrowing. No central spinal canal stenosis. L1-2: Broad-based disc bulging. Facet joint and ligamentum flavum hypertrophy. Reduced AP diameter of the thecal sac and the neural foramina likely encroaching the exiting nerve roots. L2-3: Broad-based disc bulging. Facet joint and ligamentum flavum hypertrophy. Reduced AP diameter of the thecal sac with the CSF effacement. Bilateral neuroforamina stenosis likely encroaching the neural elements both thecal sac and the exiting nerve roots. L3-4: Broad-based disc bulging. Facet joint and ligamentum flavum hypertrophy. CSF effacement of the thecal sac. Bilateral neuroforamina stenosis encroaching posterior compressing the exiting nerve roots and encroaching the neural elements of the thecal sac. L4-5: Grade 1 anterolisthesis, broad-based disc bulging, facet joint and ligamentum flavum hypertrophy resulting in CSF effacement of the thecal sac and bilateral neuroforamina stenosis, right greater than the left compressing the neural elements both thecal sac and exiting nerve roots. L5-S1: Prominent epidural fat. Broad-based disc bulging. Facet joint and ligamentum flavum hypertrophy. Reduced AP diameter of the thecal sac and the neural foramina likely encroaching the neural elements. Asymmetric volume loss of the right psoas muscle. Probable cystic lesions in the parapelvic left kidney. IMPRESSION: Multilevel lumbar spondylosis resulting in grade 1 anterolisthesis L4-5 and multilevel central spinal canal and neuroforamina stenosis more conspicuous at L4-5 and to a lesser extent L2-3, L3-4 and L5-S1 levels. Epidural lipomatosis from L3 to sacrum. XR hip RAINE min 3V w/wo pel on 06/19/24 CLINICAL HISTORY: PAIN Exam: AP pelvis with AP and frog-leg lateral views of both hips. Comparison: Right hip radiographs December 14, 2023. Findings: Bony alignment of the hip joints is anatomic. No acute fractures are identified. 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 No erosions. Sacroiliac joints and pubic symphysis are unremarkable. Impression: No fracture. XR LUMBAR SPINE 4 OR MORE VIEWS 08/31/24 HISTORY: M48.062 - Spinal stenosis, lumbar region with neurogenic claudication COMPARISON: Comparison is made with the prior examination dated 06/18/2024. FINDINGS: AP, and neutral, flexion, and extension lateral views of the lumbar spine are submitted. Osseous mineralization is normal. There is mild rotatory dextroscoliosis. The vertebral bodies maintain normal height without evidence of fracture. There is grade I spondylolisthesis of L4 on L5. There is no significant change in flexion or extension. There is mild to moderate degenerative disc disease with disc space narrowing and osteophyte formation. There is osteoarthritis of the lower lumbar facet joints. And IVC filter is seen in place. IMPRESSION: Mild rotatory dextroscoliosis. Grade I spondylolisthesis of L4 on L5 without significant change in flexion or extension. Mild to moderate degenerative disc disease. Assessment & Plan Assessment & Plan (1) Chronic left hip pain: Code(s): M25.552 - Pain in left hip; G89.29 - Other chronic pain Category: Medical (2) Left groin pain: Code(s): R10.32 - Left lower quadrant pain Category: Medical (3) Chronic back pain: Code(s): M54.9 - Dorsalgia, unspecified; G89.29 - Other chronic pain Category: Medical (4) Lumbar degenerative disc disease: Code(s): M51.369 - Other intervertebral disc degeneration, lumbar region without mention of lumbar back pain or lower extremity pain Category: Medical (5) Lumbosacral spondylosis: Code(s): M47.817 - Spondylosis without myelopathy or radiculopathy, lumbosacral region Category: Medical (6) Sacroiliac joint pain: Code(s): M53.3 - Sacrococcygeal disorders, not elsewhere classified Category: Medical (7) Lumbar radicular pain: Code(s): M54.16 - Radiculopathy, lumbar region Category: Medical Plan The plan includes obtaining an MRI of the left hip to further evaluate the source of pain, as previous injections did not provide relief. The patient will be referred to Orthopedics for further assessment and management of the hip and groin pain. He is advised to try meloxicam, which has been prescribed by his primary care physician, and to continue gabapentin as needed. Patient is also suffers from chronic low back pain with radiculopathy which was not alleviated with interventional treatments. He was evaluated by [facility] who discussed a simple decompression at L4-5. Right L4-L5 TFESI provided him temporary relief at 60%. All questions and concerns have been answered and patient agreed with the treatment plan. Follow up as needed. Patient was informed and verbally consented to the use of an ambient scribe for clinic note documentation during this visit. Orders: Orders MR hip LT wo con Today G89.29 - Other chronic pain, M25.552 - Pain in left hip, R10.32 - Left lower quadrant pain Referrals Orthopedics Referral G89.29 - Other chronic pain, M25.552 - Pain in left hip, R10.32 - Left lower quadrant pain Coding Level of Care Code Est Pt Level 4 (76191) Complex EM visit Add On G2211 Diagnoses Chronic left hip pain M25.552; G89.29 Left groin pain R10.32 Chronic back pain M54.9; G89.29 Lumbar degenerative disc disease M51.369 Lumbosacral spondylosis M47.817 Sacroiliac joint pain M53.3 Lumbar radicular pain M54.16
--- OUTSIDE RECORDS SUMMARY | 2025-04-04 13:06 | XMS_ITS | Clinical Summary ---
Author Organization [facility] Address [address] [place] [address] Care Team Providers Care Weatherization Director Name Role Phone No, Pcp Primary Care [...] patient's age to complete this topic Insurance [facility] Care Teams Weatherization Director Relationship Specialty Start Date End Date No, Pcp HIREN PCP - General 01/29/22
--- OUTSIDE RECORDS SUMMARY | 2025-04-04 13:07 | XMS_ITS | Clinical Summary ---
Author Organization 175 [facility] Address [address] [place] [address] Phone Care Team Providers Care Basin Tender Name Role Phone Name, Leland MIMS Primary Care Provider [phone] Allergies No known active allergies Medications DICLOFENAC [...] skin. 400 g 4 04/19/20 25 Active enoxaparin (Lovenox) 120 mg/0.8 mL syringe injection Inject 0.8 mL (120 mg total) under the skin every 12 (twelve) hours. 60 each 5 05/03/20 25 Active Active Problems Problem Noted Date Diagnosed Date Chronic pain 03/15/2024 HTN (hypertension) 03/15/2024 Rotator cuff disorder 03/15/2024 Claustrophobia 03/15/2024 Encounters Date Type Department Care Team Description 2025 12:27 AM EDT - 2025 3:01 AM EDT Emergency [facility] Emergency [address] [place] [address] Haim Garland MD Deep vein thrombosis (DVT) of proximal vein of left lower extremity, unspecified chronicity ([facility] V24, [facility] V28) (Primary Dx); Pain Discharge Disposition: Home or Self Care from Last 3 Months Medical History Medical History Date Comments DVT (deep venous thrombosis) ([facility] V24, [facility] V28) Social History Tobacco Use Types Packs/Day Years Used Date Smoking Tobacco: Unknown Tobacco Cessation:Counseling Given: Not Answered Sex and Gender Information Value Date Recorded Sex Assigned at Not on file Legal Sex Male 11:37 PM EST Gender Identity Not on file Sexual Orientation Not on file Obstetrics History Last Filed Vital Signs Vital Sign Reading [...] Mass Index 38.91 04/02/2025 11:13 PM EDT Plan of Treatment Health Maintenance Due Date Last Done Comments Colorectal Cancer Screening: Colonoscopy 1965 Hepatitis A Vaccines (1 of 2 - Risk 2-dose series) 1982 Medicare Annual Wellness Visit 03/16/2024 Social Influencers of Health Screening 03/16/2024 Depression Screening 06/13/2024 COVID-19 Vaccine ( season) 2025 06/18/2021, 10/30/2020, 10/02/2020 Influenza Vaccine (#1) 2025 , 04/05/2023, 03/24/2021, Additional history exists Hypertension/CHF/CAD Annual BMP Blood Test 2026 2025, 03/21/2015 DTaP,Tdap,and Td Vaccines (3 - Td or [...] Procedure Name Priority Date/Time Associated Diagnosis Comments HEPARIN AND LOW MOLECULAR WEIGHT ANTI XA LEVEL STAT Add-on 2025 1:32 AM EDT CBC WITH AUTO DIFFERENTIAL STAT 2025 1:32 AM EDT ACTIVATED PARTIAL THROMBOPLASTIN TIME STAT 2025 1:32 AM EDT PROTHROMBIN TIME WITH INR STAT 2025 1:32 AM EDT CBC AND DIFFERENTIAL STAT 2025 1:32 AM EDT COMPREHENSIVE METABOLIC PANEL STAT 2025 1:32 AM EDT MAGNESIUM STAT 2025 1:32 AM EDT VAS US DUPLEX LOWER EXT VENOUS LEFT STAT 2025 1:02 AM EDT Pain from Last 3 Months Results * (ABNORMAL) CBC auto differential (2025 1:32 AM EDT) WBC 11.4(H) 4.8 - 10.8 K/mcL LAB HEMETOLOGY METHOD 2025 2:[address] [facility] RBC 3.80(L) 4.50 - 5.50 M/mcL LAB HEMETOLOGY METHOD 2025 2:[address] [facility] Hemoglobin 11.3(L) 13.5 - 17.5 g/dL LAB HEMETOLOGY METHOD 2025 2:[address] [facility] Hematocrit 36.0(L) 42.0 - 54.0 % LAB HEMETOLOGY METHOD 2025 2:[address] [facility] MCV 94.2 79.0 - 98.0 FL LAB HEMETOLOGY METHOD 2025 2:[address] [facility] MCH 29.6 27.0 - 32.0 pcg LAB HEMETOLOGY METHOD 2025 2:[address] [facility] MCHC 31.4(L) 32.0 - 37.0 g/dL LAB HEMETOLOGY METHOD 2025 2:[address] [facility] RDW 15.3(H) 11.0 - 15.0 % LAB HEMETOLOGY METHOD 2025 2:[address] [facility] Platelets 241 130 - 400 K/mcL LAB HEMETOLOGY METHOD 2025 2:[address] [facility] MPV 10.5 7.0 - 11.0 FL LAB HEMETOLOGY METHOD 2025 2:[address] [facility] NRBC 0.0 <1.0 % LAB HEMETOLOGY METHOD 2025 2:[address] [facility] NRBC Absolute 0.00 <0.10 K/mcL LAB HEMETOLOGY METHOD 2025 2:[address] [facility] Neutrophils Relative 74.9 % LAB HEMETOLOGY METHOD 2025 2:[address] [facility] Lymphocytes Relative 12.9 % LAB HEMETOLOGY METHOD 2025 2:[address] [facility] Monocytes Relative 9.9 % LAB HEMETOLOGY METHOD 2025 2:[address] [facility] Eosinophils Relative 1.5 % LAB HEMETOLOGY METHOD 2025 2:[address] [facility] Basophils Relative 0.1 % LAB HEMETOLOGY METHOD 2025 2:[address] [facility] Immature Granulocytes Relative 0.7 % LAB HEMETOLOGY METHOD 2025 2:[address] [facility] Neutrophils Absolute 8.55(H) 1.50 - 7.00 K/mcL LAB HEMETOLOGY METHOD 2025 2:[address] [facility] Lymphocytes Absolute 1.47 1.00 - 5.00 K/mcL LAB HEMETOLOGY METHOD 2025 2:[address] [facility] Monocytes Absolute 1.13(H) 0.20 - 1.00 K/mcL LAB HEMETOLOGY METHOD 2025 2:[address] [facility] Eosinophils Absolute 0.17 0.00 - 0.50 K/mcL LAB HEMETOLOGY METHOD 2025 2:29 AM EDT [facility] Basophils Absolute 0.01 0.00 - 0.20 K/mcL LAB HEMETOLOGY METHOD 2025 2:29 AM EDT [facility] Immature Granulocytes Absolute 0.08(H) 0.00 - 0.03 K/mcL LAB HEMETOLOGY METHOD 2025 2:29 AM EDT [facility] Blood Venous blood specimen / Unknown Venipuncture / Unknown 2025 1:32 AM EDT 2025 2:21 AM EDT Kristine MCKEON LAB BLOOD ORDERABLES Fin al Result Performing Organization Address [facility] Co de Phone Number [facility] [address] [place] [address], [place] [phone] * APTT (2025 1:32 AM EDT) aPTT 27.8 24.1 - 39.3 sec LAB COAGULATION METHOD 2025 2:40 AM EDT [facility] Blood Venous blood specimen / Unknown Venipuncture / Unknown 2025 1:32 AM EDT 2025 2:33 AM EDT Kristine MCKEON LAB BLOOD ORDERABLES Fin al Result [facility] [address] [place] [address], [place] [phone] * Protime-INR (2025 1:32 AM EDT) Protime 10.8 10.6 - 13.9 sec LAB COAGULATION METHOD 2025 2:40 AM EDT [facility] INR 0.9 LAB COAGULATION METHOD 2025 2:40 AM EDT [facility] Blood Venous blood specimen / Unknown Venipuncture / Unknown 2025 1:32 AM EDT 2025 2:33 AM EDT Kristine MCKEON LAB BLOOD ORDERABLES Fin al Result Performing Organization Address [facility]/ZIP Co de Phone Number [facility] [address] [place] [address], [place] [phone] * (ABNORMAL) Low molecular wgt heparin (2025 1:32 AM EDT) Heparin Anti-Xa <0.04(L) 0.30 - 0.70 I Unit/mL LAB COAGULATION METHOD 2025 2:47 AM EDT [facility] Blood Venous blood specimen / Unknown Venipuncture / Unknown 2025 1:32 AM EDT 2025 2:33 AM EDT Narrative [facility] - 2025 2:47 AM EDT Therapeutic range listed is for Unfractionated Heparin. LMW Heparin therapeutic range: 0.50-1.20 IU/mL Haim Garland MD LAB BLOOD ORDERABLES Final Resu lt Performing Organization Address [facility]/ZIP Co de Phone Number [facility] [address] [place] [address], [place] [phone] * Magnesium (2025 1:32 AM EDT) Magnesium 2.1 1.9 - 2.6 mg/dL LAB CHEMISTRY METHOD 2025 2:49 AM EDT [facility] Blood Venous blood specimen / Unknown Venipuncture / Unknown 2025 1:32 AM EDT 2025 2:21 AM EDT Kristine MCKEON LAB BLOOD ORDERABLES Fin al Result [facility] [address] [place] [address], * (ABNORMAL) Comprehensive Metabolic Panel (CMP) (2025 1:32 AM EDT) Sodium 139 133 - 145 mmol/L LAB CHEMISTRY METHOD 2025 3:[address] [facility] Potassium 4.1 3.5 - 5.5 mmol/L LAB CHEMISTRY METHOD 2025 3:[address] [facility] Chloride 104 96 - 110 mmol/L LAB CHEMISTRY METHOD 2025 3:[address] [facility] CO2 30 21 - 32 mmol/L LAB CHEMISTRY METHOD 2025 3:[address] [facility] Anion Gap 5 3 - 11 LAB CHEMISTRY METHOD 2025 3:[address] [facility] Glucose 108(H) 70 - 100 mg/dL LAB CHEMISTRY METHOD 2025 3:[address] [facility] BUN 28(H) 5 - 25 mg/dL LAB CHEMISTRY METHOD 2025 3:[address] [facility] Creatinine 0.90 0.70 - 1.30 mg/dL LAB CHEMISTRY METHOD 2025 3:[address] [facility] eGFR 97 >=60 mL/min/1. 73m2 LAB CHEMISTRY METHOD 2025 3:[address] [facility] Comment:Calculation based on the Chronic Kidney Disease Epidemiology Collaboration (CKD-EPI) equation refit without adjustment for race. BUN/Creatinine Ratio 31.1 LAB CHEMISTRY METHOD 2025 3:[address] [facility] Calcium 9.0 8.5 - 10.5 mg/dL LAB CHEMISTRY METHOD 2025 3:03 AM EDT [facility] AST (SGOT) 13 10 - 42 unit/L LAB CHEMISTRY METHOD 2025 3:03 AM EDT [facility] ALT (SGPT) 24 10 - 60 unit/L LAB CHEMISTRY METHOD 2025 3:03 AM T [facility] Alkaline Phosphatase 160(H) 42 - 121 unit/L LAB CHEMISTRY METHOD 2025 3:03 AM EDT [facility] Total Protein 6.0 6.0 - 8.0 g/dL LAB CHEMISTRY METHOD 2025 3:03 AM T [facility] Albumin 3.3 3.2 - 5.0 g/dL LAB CHEMISTRY METHOD 2025 3:03 AM T [facility] Total Bilirubin 0.1 0.0 - 1.4 mg/dL LAB CHEMISTRY METHOD 2025 3:03 AM EDT [facility] Blood Venous blood specimen / Unknown Venipuncture / Unknown 2025 1:32 AM EDT 2025 2:21 AM EDT us Kristine MCKEON LAB BLOOD ORDERABLES Fin al Result [facility] [address] [place] [address], * Vascular US Duplex Lower Extremity Venous [...] VASCULAR PROCEDURES E dited Result - Final from Last 3 Months Insurance [facility] MEDIC[facility] Member Subscriber Plan / Payer (Ef fective 2017-Present) Name:STEVEN MCLAUGHLIN Relation to Subscriber:Self Name:Steven Mclaughlin Payer ID:[id number] Group ID:[id number] Type:Not on file Address: [place] [address] [address] Care Teams Basin Tender Relationship Specialty Start Date End Date Name, MD Leland [address] [place], [place] PCP - General 01/06/15
== END 2025-04-04 10:47 | disposition home or self-care (01) ==
PROVIDERS: PCP Internal Medicine Geriatric Medicine; Visit Provider Nurse Practitioner Family
DX: M25.552 Pain in left hip (principal); G89.29 Other chronic pain; R10.32 Left lower quadrant pain; M54.9 Dorsalgia, unspecified; M51.369 Other intervertebral disc degeneration, lumbar region without mention of lumbar back pain or lower extremity pain; M47.817 Spondylosis without myelopathy or radiculopathy, lumbosacral region; M53.3 Sacrococcygeal disorders, not elsewhere classified; M54.16 Radiculopathy, lumbar region
CPT/HCPCS: 99214; G2211

== ENCOUNTER → 2025-04-04 10:42 | Outpatient (BNVA) | payer OTHER, SELFPAY | PROVIDERS: PCP Internal Medicine Geriatric Medicine; Visit Provider Nurse Practitioner Family | DX: M25.552 Pain in left hip (principal); R10.32 Left lower quadrant pain; M51.369 Other intervertebral disc degeneration, lumbar region without mention of lumbar back pain or lower extremity pain; M47.817 Spondylosis without myelopathy or radiculopathy, lumbosacral region; M53.3 Sacrococcygeal disorders, not elsewhere classified; M54.16 Radiculopathy, lumbar region; G89.29 Other chronic pain | CPT/HCPCS: 99212 ==

== ENCOUNTER 2025-05-03 14:19 | Outpatient (AMB) | payer OTHER, SELFPAY ==
--- OUTSIDE RECORDS SUMMARY | 2024-03-05 08:30 | XMS_ITS ---
Author Organization [facility] Address [address] [place] [address] Care Team Providers Care Heat Curer Name Role Phone Name Leland MIMS Primary Care Provider UnavailAlex Naqvimie Unavailable [phone] Nalini Dyer Unavailable [phone] Encounters Encounter Location Date Provider Diagnosis [address] [address] 03/05/2024 Nalini Dyer Plan Of Treatment Next Appt Details Provider Name:Nalini addison, 07/08/2025 01:30:00 PM, [address] [place] [address], [phone], Progress Notes * Jaren MCLAUGHLINsDOB: 3 (60 yo M)Acc No.[id number]:03/05/2024 Progress Note Patient: Kedar SALEEMsus Provider: Elmer Dyer DPM :1965 A ge:58 Y S ex:Male Date:03/05/2024 Address:[address] [place], [place] [id number] Pcp:Leland Brandon MD Subjective: * Chief Complaints: * * Medical History: Objective: * Vitals: Assessment: Plan: * Treatment: * Images: * The named appointment provid er may or may not be the originator of this progress note, and it is not deemed complete until electronically signed by the appointment provider. Sign off status: Pending * Provider: Elmer Dyer, KEKE Date: 0 03/05/2024 Generated for Luisa john/Alexandrea/Clayton on: 1 07/03/2024 02:37 PM EST
--- OUTSIDE RECORDS SUMMARY | 2024-08-02 09:45 | XMS_ITS ---
Author Organization [facility] Address [address] [place] [address] Care Team Providers Care Water Hydrant Installer Name Role Phone Name Leland MIMS Primary Care Provider UnavailAlex Naqvimie Unavailable [phone] Nalini Dyer Unavailable [phone] Encounters Encounter Location Date Provider Diagnosis [address] [address] 08/02/2024 Nalini Dyer Plan Of Treatment Next Appt Details Provider Name:Nalini addison, 07/08/2025 01:30:00 PM, [address] [place] [address], [phone], Progress Notes * Jaren MCLAUGHLINsDOB: 3 (60 yo M)Acc No.[id number]:08/02/2024 Progress Note Patient: Kedar SALEEMsus Provider: Elmer Dyer DPM :1965 A ge:59 Y S ex:Male Date:08/02/2024 Address:[address] [place], [place] [phone] Pcp:Leland Brandon MD Subjective: * Chief Complaints: * * Medical History: Objective: * Vitals: Assessment: Plan: * Treatment: * Images: * The named appointment provid er may or may not be the originator of this progress note, and it is not deemed complete until electronically signed by the appointment provider. Sign off status: Pending * Provider: Elmer Dyer, KEKE Date: 0 08/02/2024 Generated for Liusa john/Alexandrea/Clayton on: 1 07/03/2024 02:38 PM EST
--- OUTSIDE RECORDS SUMMARY | 2025-04-28 09:51 | XMS_ITS | Continuity of Care Document ---
Author Organization [facility] Address [address] [place] [address]- Care Team Providers Care Sewer Line Repairer Name Role Phone Name Leland MIMS Primary Care Physician [id number] Date(s): 08/17/24 - 04/28/25 [facility] Care [address] [place] [address] Discharge Disposition: A-D/C Home Attending Physician: Denisse MIMS [facility] Admitting Physician: Eden MIMS [facility] Referring Physician: Leland Brandon MD Encounter Type: Disch Recurring OP Allergies, Adverse Reactions, Alerts No Known Medication Allergies Immunizations Given and Recorded Vaccine Date Status Refusal Reason influenza virus vaccine, inactivated 03/30/17 Give n pneumococcal 23-valent vaccine 11/29/15 Given tetanus-diphtheria toxoids (Td) 1 07/09/98 Given 1Admin Note: Given by nurse Medications Albuterol (Eqv-Ventolin HFA) 90 mcg/inh inhalation aerosol 1 inhalation = 90 mcg, Inhalation, Every 4 hours, PRN as needed for shortness of breath or wheezing, # 18 Gm, 0 Refills, Maintenance, 04/18/25 7:18:00 PM EST, Aerosol, Partial fill upon patient request if the prescription is for a schedule II opioid drug. Start Date: 04/18/25 Status: Ordered Medication Dispense Status: Completed Quantity: 18.0 Unit: g Total Allowed Fills: 1 Fills Dispensed: 0 Compression Stockings See Instructions, # 2 pair, Refills 2, Tot. Refills 2, Maintenance, surgical, calf length 30-40 mm Hg Dx: chronic venous hypertension, 01/16/18 4:16:22 PM EDT, Compound Start Date: 01/16/18 Status: Ordered Medication Dispense Status: Completed Quantity: 2.0 Unit: pair Total Allowed Fills: 3 Fills Dispensed: 0 Compression Stockings See Instructions, # 2 each, Refills 2, Tot. Refills 2, Maintenance, surgical, knee length 30-40 mm Hg, 11/09/23 12:01:00 PM EDT, Supply, 183, cm, 11/09/23 10:38:00 EDT, Height, 132.1, kg, 11/09/23 10:38:00 EDT, Dry Weight Start Date: 11/09/23 Status: Ordered Medication Dispense Status: Completed Quantity: 2.0 Unit: each Total Allowed Fills: 3 Fills Dispensed: 0 duloxetine 30 mg oral enteric coated capsule 1 capsule = 30 mg, By Mouth, 2 times a day, # 180 capsule, 0 Refills, Maintenance, 04/18/25 7:17:00 PM EST, EC Capsule, Partial fill upon patient request if the prescription is for a schedule II opioid drug. Start Date: 04/18/25 Status: Ordered Medication Dispense Status: Completed Quantity: 180.0 Unit: capsule Total Allowed Fills: 1 Fills Dispensed: 0 enoxaparin 150 mg/mL injectable solution 0.9 mL = 135 mg, Subcutaneous Injection, Every 12 hours, # 162 mL, 0 Refills, Maintenance, 04/10/2510:42:00 AM EDT, Injection, [facility], Partial fill upon patient request if the prescription is for a schedule II opioid drug., 183, cm, 03/11/25 23:26:00 EDT, Height, 129.5, kg, 03/11/25 23:26:00 EDT, Dry Weight Start Date: 04/10/25 Stop Date: 07/09/25 Status: Ordered Medication Dispense Status: Completed Quantity: 162.0 Unit: mL Total Allowed Fills: 1 Fills Dispensed: 0 gabapentin 300 mg oral capsule 900 mg, 3, capsule, By Mouth, 3 times a day, # 270 capsule, Refills 0, Tot. Refills 0, Maintenance,04/19/25 1:09:00 PM EST, Route to Pharmacy Electronically, [facility] #[id number], Partial fill upon patient request if the prescription is for a schedule II opioid drug., 185, cm, 04/19/25 6:27:00 EST, Height, 130, kg, 04/18/25 17:22:00 EST, Dry Weight Start Date: 04/19/25 Status: Ordered Medication Dispense Status: Completed Quantity: 270.0 Unit: capsule Total Allowed Fills: 1 Fills Dispensed: 0 Methadone = 108 mg, By Mouth, Daily, 0 Refills, Maintenance, 05/18/24 8:50:00 AM EST, Partial fill upon patient request if the prescription is for a schedule II opioid drug. Start Date: 05/18/24 Status: Ordered Medication Dispense Status: Completed Total Allowed Fills: 1 Fills Dispensed: 0 senna 187 mg oral tablet 2 tablet = 17.2 mg, By Mouth, 2 times a day, PRN Constipation, # 100 tablet, 0 Refills, Maintenance, 04/10/25 10:44:00 AM EDT, Tablet, [facility], Partial fill upon patient request if the prescription is for a schedule II opioid drug., 183, cm, 03/11/25 23:26:00 EDT, Height, 129.5, kg, 03/11/25 23:26:00 EDT, Dry Weight Start Date: 04/10/25 Status: Ordered Medication Dispense Status: Completed Quantity: 100.0 Unit: tablet Total Allowed Fills: 1 Fills Dispensed: 0 John Lopez, See Instructions, # 1 each, Refills 0, Tot. Refills 0, Maintenance, Diagnosis- M16.12, 04/19/25 1:15:00 PM EST, Supply Start Date: 04/19/25 Status: Ordered Medication Dispense Status: Completed Quantity: 1.0 Unit: each Total Allowed Fills: 1 Fills Dispensed: 0 zolpidem 10 mg oral tablet 1 tablet = 10 mg, By Mouth, Daily at bedtime, PRN as needed for insomnia, 0 Refills, Maintenance, 08/14/24 11:30:00 AM EST, Partial fill upon patient request if the prescription is for a schedule II opioid drug. 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, taper begun 05/16/14 1 Confirmed Active Impaired glucose tolerance Confirmed Active Insomnia Confirmed Active Knee pain Confirmed 07/14/09 Active Obesity Confirmed Active Obstructive sleep apnea syndrome- untreated Confirmed Active PTSD - Post-traumatic stress disorder Confirmed 05/19/09 Active Encounter for screening colonoscopy Confirmed Active Severe obesity (BMI 35.0-39.9) with comorbidity Confirmed Active Tympanic membrane - total perforation Confirmed Active Ulcer of left lower leg associated with varicose veins Confirmed Active Varicose veins of right lower extremity with pain Confirmed Active 1Narcotic contract signed 03/14/2014 Social History Social History Type Response Smoking Status Cigars or pipes saeid y within last 30 days entered on: 08/14/21 Sex Sex Representation Male (finding) Patient Care team information Care Team Personnel Name: Susan Ng Position: [facility] Onco RN Member Role: Primary Care Nurse Name: Oj Beckett RN Position: [facility] RN Member Role: Primary Care Nurse Name: Marcy Saenz RN Position: [facility] RN Member Role: Primary Care Nurse Name: Terra Andrade RN Position: [facility] RN Member Role: Primary Care Nurse Name: Aly Mcguire RN Position: [facility] RN Member Role: Primary Care Nurse Name: Claudio Olivia RN Position: [facility] RN Member Role: Primary Care Nurse Name: Lacie Heck RN Position: [facility] Hospital Database Analyst Member Role: Primary Care Nurse Name: Barbie Pop RN Position: [facility] RN Member Role: Primary Care Nurse Name: Leland Brandon MD Position: [facility] Outreach Member Role: PCP Address: [address] [place] [address]- Telecom: Name: Anjelica Ferrara RN Position: [facility] RN Member Role: Primary Care Nurse Name: Crissy Reeder RN Position: [facility] RN Member Role: Primary Care Nurse Name: Felix Boo RN Position: S RN Member Role: Primary Care Nurse Name: Karishma Jacobsen LPN Position: [facility] RN Member Role: Primary Care Nurse Name: Vivian Greenfield RN Position: S RN Member Role: Primary Care Nurse Name: Swati Morrison Position: [facility] RN Member Role: Primary Care Nurse Name: Araceli Donohue RN, I Position: [facility] RN Member Role: Primary Care Nurse Care Team Related Persons Name: CLIFFORD FIGUEROA Name: DOMINIK CHAVEZ Insurance Providers Guarantor name: BERTO [facility] Plan Information #: 1 Payer: [facility] Payer Identifier: SPIKE Member Number: [id number] Group Number: [id number] Subscriber Identifier: [id number] Relationship to Subscriber: self Coverage Type: Medicare Managed Care (Includes Medicare Advantage Plans) Coverage Verification Date: NA Telecom: [employer] Address:
--- OUTSIDE RECORDS SUMMARY | 2025-04-30 13:15 | XMS_ITS | Encounter Summary ---
Author Organization [employer] Address [address] [facility] [address] [place] [address] Care Team Providers Care Biomedical Engineering Technician Name Role Phone Name, Leland MIMS Primary Care Provider [phone] Reason for Visit * Reason Comments Follow-up Encounter Details Date Type Department Care Team (Latest Contact Info) Description 04/30/2025 1:15 PM EST Office Visit [facility] MEDICINE [address] [place], [place] [phone] Name, MD Leland [address] [place] [address] Chronic pain syndrome (Primary Dx); Neurogenic claudication due to lumbar spinal stenosis; Acute deep vein thrombosis (DVT) of left lower extremity, unspecified vein (HCC); Primary osteoarthritis of left hip Social History Tobacco Use Types Packs/Day Years [...] Answer Date Recorded Patient Health Questionnaire-9 Score 15 04/10/2025 Patient Health Questionnaire-9 Score 15 04/10/2025 Last PHQ-9: Questionnaire Data Not on file 1 Housing Stability Answer Date Recorded What is [...] Answer Date Recorded Patient Health Questionnaire-2 Score 5 04/10/2025 Internet Access Answer Date Recorded Internet Access [...] Sign Reading Time Taken Comments Blood Pressure 146/76 04/30/2025 1:27 PM EST Pulse 84 04/30/2025 1:27 PM EST Temperature 36.2 C (97.2 F) 04/30/2025 1:27 PM EST Respiratory Rate 14 04/30/2025 1:27 PM EST Oxygen Saturation 97% 04/30/2025 1:27 PM EST Inhaled Oxygen Concentration - - Weight 128 kg (281 lb 12.8 oz) 04/30/2025 1:27 P M EST Height 182.9 cm (6') 04/30/2025 1:27 PM EST Body Mass Index 38.22 04/30/2025 1:27 PM EST documented in this encounter Progress Notes * Leland Brandon MD - 04/30/2025 1:15 PM EST Subjective Patient ID: Steven Singh is a 60 y.o. male who presents for Follow-up. Patient comes for a follow-up visit. He is complaining of severe low back pain with radiation to the left leg. He has chronic low back pain, severe DJD of the lumbar spine, lumbar stenosis with neurogenic claudication. He has difficulty standing and walking due to the pain. He is already treated with methadone and gabapentin. He cannot use NSAIDs since he is anticoagulated with Lovenox because ofrecurrent DVTs and he had a recent DVT of the left leg last month. He continues on Lovenox without any bleeding complications. He explains to me that he was evaluated with another MRI recently but the results are not available for review. Summary of most recent hospitalization is written below: [facility] ED (04/03/25) Patient presented for evaluation of left lower extremity pain and swelling. Discharged on enoxaparin for DVT. Medication changes that occurred during hospitalization include: ?? Added ?? Enoxaparin 120 mg/0.8 ml - inject 0.8 ml subcutaneous every 12 hours [facility] (04/08/25-04/10/25) Patient with PMH of hypertension, morbid obesity, chronic DVTs with extensive hematologic workup with no identified cause, previously on enoxaparin, Eliquis and Xarelto presented with chronic left lower extremity pain and difficulty walking. Diagnosed with left sided DVT extending from SFA through popliteal and peroneal veins. Reports compliance with Xarelto. Hematology consulted, not sure this the case of Xarelto failure however recommended keeping patient on enoxaparin instead. Hypercoagulability workup pending. Home VNA and PT arranged due to limited mobility. Patient discharged home. Medication changes that occurred during hospitalization include: ?? Added ?? Enoxaparin 150 mg/ml - 0.9 ml subcutaneous injection every 12 hours ?? Oxycodone 5 mg every 6 hours as needed for moderate pain ?? Senna 2 tabs twice a day as needed for constipation ?? Changed: none ?? Discontinued ?? Xarelto Review of Systems Constitutional: Negative for chills, fatigue and fever. HENT: Negative for sore throat. Respiratory: Negative for cough, chest tightness and shortness of breath. Cardiovascular: Negative for chest pain, palpitations and leg swelling. Gastrointestinal: Negative for abdominal pain and blood in stool. Musculoskeletal: See HPI Objective Vitals: 04/30/25 1327 BP: (!) 146/76 BP Location: Left arm Patient Position: Sitting BP Cuff Size: Adult Pulse: 84 Resp: 14 Temp: 97.2 ??F (36.2 ??C) TempSrc: Temporal SpO2: 97% Weight: 281 lb 12.8 oz (128 kg) Height: 6' (1.829 m) Physical Exam Constitutional: General: He is in acute distress. Appearance: He is not toxic-appearing. Cardiovascular: Rate and Rhythm: Normal rate and regular rhythm. Pulmonary: Effort: Pulmonary effort is normal. No respiratory distress. Neurological: General: No focal deficit present. Mental Status: He is oriented to person, place, and time. Comments: Patient has severe difficulties ambulating, he uses a cane, even walking around the room causes him severe pain, standing also causes him severe pain. He walks leaning forward to decrease the pain which is consistent with his previous history of lumbar stenosis MRI LS 07/2024: IMPRESSION: Multilevel lumbar spondylosis resulting in grade 1 anterolisthesis L4-5 and multilevel central spinal canal and neuroforamina stenosis more conspicuous at L4-5 and to a lesser extent L2-3, L3-4 and L5-S1 levels. Epidural lipomatosis from L3 to sacrum. Electronically signed by: Santana Greer MD 07/17/2024 07:55 AM [facility] Assessment/Plan Diagnoses and all orders for this visit: Chronic pain syndrome Comments: Multifactorial problem. Part of the pain radiates from the lumbar spine. Has documented lumbar stenosis secondary to DJD of the lumbar spine. Recent MRI also documented left hip DJD that is contributing to his pain. He did not want surgical intervention for the lumbar spine before and at the momentnot urgent surgical interventions should be delayed because of his recent DVT. We are working on getting him an electrical wheelchair. I will also try to get him a power recliner since he has difficulty standing. He will continue on methadone and gabapentin for the pain. I will add Namenda to his pain medication regimen. Neurogenic claudication due to lumbar spinal stenosis Acute deep vein thrombosis (DVT) of left lower extremity, unspecified vein (HCC) Comments: Continue Lovenox and keep upcoming appointment with [facility] hematology. Other orders - memantine (Namenda) 5 MG tablet; Take 1 tablet (5 mg) by mouth 2 times daily. Future Appointments Date Time Provider Department Center 10/18/2025 2:00 PM Hortencia Hampton, L[facility] documented in this encounter Plan of Treatment Upcoming Encounters Date Type Department Care Team (Late st Contact Info) Description 07/10/2025 2:00 PM EST Telemedicine [facility] MEDICINE [address] [place] [address] Leland Brandon MD [address] [place] [address] 10/18/2025 2:00 PM EDT Office Visit [facility] OPTOMETRY [address] [place], [place] [phone] Hortencia Hampton, LESLI [address] [place] [address] documented as of this encounter Visit Diagnoses Diagnosis Chronic pain syndrome- Primary Neurogenic claudication due to lumbar spinal stenosis Spinal stenosis of lumbar region Acute deep vein thrombosis (DVT) of left lower extremity, unspecified vein (HCC) Primary osteoarthritis of left hip documented in this encounter Additional Health Concerns Assessment Noted Time PHQ-9 Depression Total Score: 15 025 3:41 PM EDT documented as of this encounter Care Teams Biomedical Engineering Technician Relationship Specialty Start Date End Date Leland Brandon MD [address] [place] [id number] PCP - General Family Medicine 08/26/15 documented as of this encounter
[2025-05-03 14:24] VITALS: BP 118/64; PULSE 88; O2SAT 95; BMI 38.4
--- NOTE | 2025-05-03 14:24 | A.OFFVIS_ITS ---
Vital Signs 05/03/25 14:24 Height 6 ft Weight 283 lb 4.704 oz BMI 38.4 BP 118/64 Blood Pressure Location Lt brachial Position Sitting Pulse 88 Pulse Source Pulse Oximeter Pulse Oximetry (%) 95 Oxygen Delivery Method Room Air Intake Visit Reasons: Obstructive sleep apnea Corporate Meeting Planner Required: Yes Corporate Meeting Planner Services: Corporate Meeting Planner Offered & Declined Corporate Meeting Planner Name: MD speaks burmese Accompanied by: Self / Same As Patient Allergies No Known Allergies Allergy (Verified 05/03/25 14:29) HPI Comments Details: The patient is a 60-year-old gentleman with known history of sleep apnea. The patient also presents with dyspnea on exertion. Apparently several years ago the patient underwent a sleep study. It demonstrated moderate to severe sleep apnea with significant hypoxia. He was referred to the sleep Center. There he was placed on a APAP. Then subsequently had a titration study demonstrating that he benefits from BiPAP along with oxygen. The patient however has a hard time tolerating and had to return it. He has been struggling now with significant daytime drowsiness. His Rexburg score is elevated 14/24. The patient has significant cardiovascular risk factors. He is also complaining of increasing dyspnea on exertion. Coia-ke-srtrebha severity. He is going to have a cardiac evaluation. In the meantime he has a history of smoking so therefore he participating in the lung cancer screening program. His CT scan was back about a month ago. I did personally reviewed. He had small pulmonary nodules that are not concerning. Although he will need follow-up. No evidence of any significant emphysema. He does have some atelectasis bilaterally likely secondary to his body habitus. He does use a rescue inhaler. Has not use it often. At this point will have him have pulmonary function studies. He will need a repeat in-lab sleep study specially since he has nocturnal hypoxia. He will return after those 2 studies in order to get him restarted on CPAP because it so crucial for him specially with his increased cardiovascular risk factors. 06/18/2024 the patient is here for a pulmonary follow-up visit. The patient overall has been doing fair. He is complaining significant hip pain and lower extremity discomfort. It is keeping him from walking well. He is breathing also is affected. Complains of dyspnea on exertion. He does have a rescue inhaler. Moderate severity. We did review his pulmonary function studies demonstrating moderate obstructive process consistent with COPD. Therefore ahead and start him on Anoro for maintenance. He can also use inhaler as rescue. From a sleep apnea standpoint he continues has significant daytime drowsiness with an elevated Rexburg score 14 over 24. Needs to have a sleep study. He had an emergency to go to [place] she had to reschedule. He will call to reschedule his sleep study and then follow-up with us. Once 2nd look at this study I can not addendum to my note in order to get him on CPAP or APAP. 10/16/2024 the patient is here for pulmonary follow-up visit. He continues uses respiratory inhalers with good response. Has not had to use his rescue inhaler. Continues to have significant daytime drowsiness. His Rexburg score is elevated 12/24. He was supposed to have a sleep study that was scheduled however. The patient ended up in the hospital and could not go. Now go ahead and put the order against since he continues to be symptomatic. In the meantime he is having issues with the back. He is found to have severe spinal stenosis and is going to be receiving physical therapy in potential injections. He may ultimately need surgery. Patient recently had surgery for his varicose veins primarily in the left lower extremity. Subsequently complicated by wound and has not been healing. He is going to follow-up with wound care next week. Will go ahead and give her some doxycycline to treat him for Staph aureus. Will follow-up in 3 4 months to review his sleep study. 05/03/2025 the patient is here for pulmonary follow-up visit. He continues to have significant elements. Significant daytime drowsiness with an Rexburg score of 12/24. He was scheduled for an in-lab sleep study but the patient was not able to do so because he has had other medical issues that have taking priority. Therefore he has not been able to schedule the appointment. We again gave him the number to call to reschedule his sleep study because it is crucial in order for him to get back on PAP therapy. He does have significant cardiovascular risk factors. In addition to that he has a blood clot in the leg and he was placed on Lovenox and seems to be tolerating that well. Seems like he failed the Xarelto. The patient also has been having significant issues with arthritis. He needs to follow-up with orthopedics as he may need a total hip replacement. Hopefully as the Lovenox is clot will subside so he can move for with further interventions. At least from a pulmonary standpoint seems to be doing okay he does have his respiratory inhalers although he does complaint of shortness of breath at times chest congestion. Will go ahead and optimize his respiratory therapy by switching him from Anoro to Trelegy. The patient also needs use albuterol as needed. Although he has a hard time using it. Will go ahead and give him a nebulizer in order for him to be able to use the albuterol via the nebulizer for better effect. [facility] Medical History Benign essential tremor COPD (chronic obstructive pulmonary disease) Dyspnea Nocturnal hypoxia Hyperlipidemia History of recurrent deep vein thrombosis (DVT) Chronic back pain Methadone maintenance therapy patient REAGAN (obstructive sleep apnea) Personal history of nicotine dependence Thrombosed external hemorrhoid Morbid obesity Hypertension Chronic pulmonary embolism Current use of anticoagulant therapy Surgical History Hx of colonoscopy History of excision of mass Family History Father History of prostate cancer Social History Household Members: Friend(s) Alcohol intake: former Year quit: 2023 Patient Tobacco Use Status: Former Tobacco user Tobacco use type: Cigarette Years Smoked: onset 14, 1/2-1ppd x 42yrs, 30pyh Current occupational status: disabled Review of Systems Const Denies chills, Reports daytime sleepiness, Reports difficulty sleeping, Denies fatigue, Denies fever(s), Reports snoring, Reports stops breathing during sleep, Reports weight gain and Denies weight loss Eyes Reports no additional complaints ENT Denies dizziness Card Denies chest pain, Denies leg edema, Denies lightheadedness, Denies palpitations, Denies dyspnea on exertion, Denies orthopnea and Denies other Resp Denies cough, Denies dyspnea on exertion, Reports snoring and Denies wheezing GI Denies hematochezia and Denies change in stool character Musc Reports as per HPI, Reports abnormal gait, Denies muscle weakness, Denies numbness, Denies radiating pain into limb and Denies tingling Skin/Breast Reports sores and Reports wounds Neuro Reports abnormal gait, Denies dizziness, Denies numbness and Denies tingling Endo Denies fatigue and Denies palpitations Aller/Immun Denies wheezing Physical Exam Vital Signs: Last Vital Signs Pulse 88 05/03/25 14:24 BP 118/64 05/03/25 14:24 Pulse Ox 95 05/03/25 14:24 Oxygen Delivery Method Room Air 05/03/25 14:24 BMI result Body Mass Index 38.4 Const General: comfortable HEENT Head: Yes normal to inspection Neck Neck: Yes normal visual inspection and Yes supple Chest Chest palpation & inspection: normal inspection of the chest Resp Effort & Inspection: normal respiratory effort Auscultation: diminished lung sounds Cardio Heart sounds: S1 normal heart sound present and S2 normal heart sound present GI Palpation (GI): Soft to palpation Skin General skin exam: no rashes or lesions noted Extrem General: No clubbing and No cyanosis Assessment & Plan Assessment & Plan (1) REAGAN (obstructive sleep apnea): Code(s): G47.33 - Obstructive sleep apnea (adult) (pediatric) Category: Medical (2) Nocturnal hypoxia: Code(s): G47.34 - Idiopathic sleep related nonobstructive alveolar hypoventilation Category: Medical (3) Dyspnea: Code(s): R06.00 - Dyspnea, unspecified Category: Medical Qualifiers: Dyspnea type: dyspnea on exertion Qualified Code(s): R06.09 - Other forms of dyspnea (4) COPD (chronic obstructive pulmonary disease): Code(s): J44.9 - Chronic obstructive pulmonary disease, unspecified Category: Medical Qualifiers: COPD type: chronic bronchitis Chronic bronchitis type: simple Qualified Code(s): J41.0 - Simple chronic bronchitis (5) Cellulitis: Code(s): L03.90 - Cellulitis, unspecified Category: Medical Qualifiers: Laterality: left Site of cellulitis: extremity Site of cellulitis of extremity: lower extremity Qualified Code(s): L03.116 - Cellulitis of left lower limb Plan in lab PSG stop Anoro start Trelegy start nebulizer for albuterol start bactroban BASSEM as needed F/U 4 months Medications: New vpmwufhdzvm-wrhmhndvq-oibmvkax 200-62.5-25 mcg (Trelegy Ellipta) 1 inh inhalation DAILY 60 ea 12RF 30 days lkqxaestjjf-vlgpuqmtk-agsuctab 100-62.5-25 mcg (Trelegy Ellipta) 1 inh inhalation DAILY 60 ea 11RF 30 days J44.9 - Chronic obstructive pulmonary disease, unspecified albuterol sulfate 2.5 mg (3 mL) inhalation Q4H PRN 90 mL 11RF shortness of breath or wheezing 30 days mupirocin 2% (Centany) 1 appl topical TID 22 grams 0RF 10 days Coding Level of Care Code Est Pt Level 4 (24633) Complex visit Add On G2211 Diagnoses REAGAN (obstructive sleep apnea) G47.33 Nocturnal hypoxia G47.34 Dyspnea on exertion R06.09 Dyspnea type: dyspnea on exertion Simple chronic bronchitis J41.0 COPD type: chronic bronchitis Chronic bronchitis type: simple Cellulitis of left lower extremity L03.116 Laterality: left Site of cellulitis: extremity Site of cellulitis of extremity: lower extremity Time Spent (min) 17
--- OUTSIDE RECORDS SUMMARY | 2025-05-03 14:37 | XMS_ITS | Encounter Summary ---
Author Organization [employer] Address [address] [facility] [address] [place] [address] Care Team Providers Care Celery Tier Name Role Phone Name, Leland MIMS Primary Care Provider [phone] Reason for Visit * Reason Onset Date Comments Nurse Triage 08/06/2024 Encounter Details Date Type Department Care Team ([facility] st Contact Info) Description 08/06/2024 Telephone [facility] MEDICINE [address] [place], [place] [phone] Name, MD Leland [address] [place] [address] Nurse Triage Social History Tobacco Use Types [...] PM EST Triage call with [facility] hourly sign language interpreter [place] [id number] Pt is called several times and call [...] Info) Description 07/10/2025 2:00 PM EST Telemedicine [facility] MEDICINE [address] [place] [address] Name, MD Leland [address] [place] [address] 10/18/2025 2:00 PM EDT Office Visit [facility] OPTOMETRY [address] [place], [place] [phone] Memo, Hortencia, OD [address] [place] [address] documented as of this encounter Visit Diagnoses Diagnosis Osteoarthritis of right ankle and foot Swelling of lower limb documented in this encounter Additional Health Concerns Assessment Noted Time PHQ-9 Depression Total Score: 0 09/14/19 24 3:10 PM EDT documented as of this encounter Care Teams Celery Tier Relationship Specialty Start Date End Date Leland Brandon MD [address] [place] [phone] PCP - General Family Medicine 08/26/15 documented as of this encounter
--- OUTSIDE RECORDS SUMMARY | 2025-05-03 14:37 | XMS_ITS | Clinical Summary ---
Author Organization [facility] Address [address] [place] [address] Phone Care Team Providers Care Repairer Welding Systems And Equipment Name Role Phone Name, Leland MIMS [...] mouth 1 (one) time each day. Active enoxaparin (Lovenox) 120 mg/0.8 mL syringe injection Inject 0.8 mL (120 mg total) under the skin every 12 (twelve) hours. 60 each 5 05/03/20 25 Active ammonium lactate (AmLactin) 12 % lotion Apply topically if needed for dry skin. 400 g 4 04/19/20 25 Active Problems Problem Noted Date Diagnosed Date Chronic pain 03/15/2024 HTN (hypertension) 03/15/2024 Rotator cuff disorder 03/15/2024 Claustrophobia 03/15/2024 Encounters Date Type Department Care Team Description 04/06/2025 Results Follow-Up [facility] Emergency [address] [place] [phone] Ly Alonzo RN 2025 12:27 AM EDT - 2025 3:01 AM EDT Emergency [facility] Emergency [address] [place] [phone] Haim Garland MD Deep vein thrombosis (DVT) of proximal vein of left lower extremity, unspecified chronicity ([facility] V24, [facility] V28) (Primary Dx); Pain Discharge Disposition: Home or Self Care from Last 3 Months Medical History Medical History Date Comments DVT (deep venous thrombosis) ([facility] V24, [facility]/ [facility] V28) Social History Tobacco Use Types [...] Procedure Name Priority Date/Time Associated Diagnosis Comments LUPUS ANTICOAGULANT WITH REFLEX TO MIXING STUDIES STAT 2025 2:13 AM EDT CARDIOLIPIN ANTIBODIES, IGG, IGM AND IGA STAT 2025 2:13 AM EDT HEPARIN AND LOW MOLECULAR WEIGHT [...] from Last 3 Months Results * (ABNORMAL) Lupus anticoagulant with reflex to mixing studies (2025 2:13 AM EDT) APTT 41 <43 Sec(s) 04/05/2025 3:05 PM EDT [facility] aPTT Mix 1:1 NA Sec(s) 04/05/2025 3:05 PM EDT [facility] Hexagonal Phase Neutralization NA 04/05/2025 3:05 PM EDT [facility] Dilute Gen Viper Venom 47(H) <44 Sec(s) 04/05/2025 3:05 PM EDT [facility] DRVVT 1:1 Mix 35 <44 Sec(s) 04/05/2025 3:05 PM EDT [facility] DRVVT Confirmation NA 2024 3:05 PM EDT [facility] Interpretation SEE BELOW 04/05/2025 3:05 PM EDT [facility] Comment: Lupus anticoagulant not detected. Test performed at [facility], [address], [place] [address] Raissa Najera MD, PhD - Thermal Cutting Machine Operator Blood Venous blood specimen / Unknown Venipuncture / Unknown 2025 2:13 AM EDT 2025 2:20 AM EDT us Haim Garland MD LAB BLOOD ORDERABLES Final Resu lt [facility] [address] [place] [address] * Cardiolipin antibodies, IgG, IgM and IgA (2025 2:13 AM EDT) [facility] Cardiolipin Antibody Screen Negative Negative LAB CHEMISTRY METHOD 04/09/2025 11:02 AM EDT [facility] Blood Venous blood specimen / Unknown Venipuncture / Unknown 2025 2:13 AM EDT 2025 2:21 AM EDT Haim Garland MD LAB BLOOD ORDERABLES Final Resu lt Performing Organization Address [facility]/ZIP Co de Phone Number [facility] [address] [place] [address], [place] [phone] * (ABNORMAL) CBC auto differential (2025 1:32 AM EDT) [facility] WBC 11.4(H) 4.8 - 10.8 K/mcL LAB HEMETOLOGY METHOD 2025 2:29 AM EDT [facility] RBC 3.80(L) 4.50 - 5.50 M/mcL LAB HEMETOLOGY METHOD 2025 2:29 AM EDT [facility] Hemoglobin 11.3(L) 13.5 - 17.5 g/dL LAB HEMETOLOGY METHOD 2025 2:29 AM EDT [facility] Hematocrit 36.0(L) 42.0 - 54.0 % LAB HEMETOLOGY METHOD 2025 2:29 AM EDT [facility] MCV 94.2 79.0 - 98.0 FL LAB HEMETOLOGY METHOD 2025 2:29 AM EDT [facility] MCH 29.6 27.0 - 32.0 pcg LAB HEMETOLOGY METHOD 2025 2:29 AM [facility] MCHC 31.4(L) 32.0 - 37.0 g/dL LAB HEMETOLOGY METHOD 2025 2:29 AM [facility] RDW 15.3(H) 11.0 - 15.0 % LAB HEMETOLOGY METHOD 2025 2:29 AM [facility] Platelets 241 130 - 400 K/mcL LAB HEMETOLOGY METHOD 2025 2:29 AM [facility] MPV 10.5 7.0 - 11.0 FL LAB HEMETOLOGY METHOD 2025 2:29 AM [facility] NRBC 0.0 <1.0 % LAB HEMETOLOGY METHOD 2025 2:29 AM [facility] NRBC Absolute 0.00 <0.10 K/mcL LAB HEMETOLOGY METHOD 2025 2:29 AM [facility] Neutrophils Relative 74.9 % LAB HEMETOLOGY METHOD 2025 2:29 AM [facility] Lymphocytes Relative 12.9 % LAB HEMETOLOGY METHOD 2025 2:29 AM [facility] Monocytes Relative 9.9 % LAB HEMETOLOGY METHOD 2025 2:29 AM [facility] Eosinophils Relative 1.5 % LAB HEMETOLOGY METHOD 2025 2:29 AM [facility] Basophils Relative 0.1 % LAB HEMETOLOGY METHOD 2025 2:29 AM [facility] Immature Granulocytes Relative 0.7 % LAB HEMETOLOGY METHOD 2025 2:29 AM [facility] Neutrophils Absolute 8.55(H) 1.50 - 7.00 K/mcL LAB HEMETOLOGY METHOD 2025 2:29 AM EDT [facility] Lymphocytes Absolute 1.47 1.00 - 5.00 K/[facility] LAB HEMETOLOGY METHOD 2025 2:29 AM EDT [facility] Monocytes Absolute 1.13(H) 0.20 - 1.00 K/mcL LAB HEMETOLOGY METHOD 2025 2:29 AM EDT [facility] Eosinophils Absolute 0.17 0.00 - 0.50 K/[facility] HEMETOLOGY METHOD 2025 2:29 AM EDT [facility] Basophils Absolute 0.01 0.00 - 0.20 K/[facility] HEMETOLOGY METHOD 2025 2:29 AM EDT [facility] Immature Granulocytes Absolute 0.08(H) 0.00 - 0.03 K/[facility] HEMETOLOGY METHOD 2025 2:29 AM EDT [facility] Blood Venous blood specimen / Unknown Venipuncture / Unknown 2025 1:32 AM EDT 2025 2:21 AM EDT us Kristine MCKEON LAB BLOOD ORDERABLES Fin al Result [facility] [address] [place] [address], * APTT (2025 1:32 AM EDT) aPTT 27.8 24.1 - 39.3 sec LAB COAGULATION METHOD 2025 2:40 AM EDT [facility] Blood Venous blood specimen / Unknown Venipuncture / Unknown 2025 1:32 AM EDT 2025 2:33 AM EDT us Kristine MCKEON LAB BLOOD ORDERABLES Fin al Result Performing Organization Address [facility] de Phone Number [facility] [address] [place] [address], [place] [phone] * Protime-INR (2025 1:32 AM EDT) Pathologist [facility] Protime 10.8 10.6 - 13.9 sec LAB COAGULATION METHOD 2025 2:40 AM EDT [facility] INR 0.9 LAB COAGULATION METHOD 2025 2:40 AM EDT [facility] Blood Venous blood specimen / Unknown Venipuncture / Unknown 2025 1:32 AM EDT 2025 2:33 AM EDT Kristine MCKEON LAB BLOOD ORDERABLES Fin al Result Performing Organization Address [facility] de Phone Number [facility] [address] [place] [address], [place] [phone] * (ABNORMAL) Low molecular wgt heparin (2025 1:32 AM EDT) [facility] Heparin Anti-Xa <0.04(L) 0.30 - 0.70 I Unit/mL LAB COAGULATION METHOD 2025 2:47 AM EDT [facility] Blood Venous blood specimen / Unknown Venipuncture / Unknown 2025 1:32 AM EDT 2025 2:33 AM EDT Narrative [facility] - 2025 2:47 AM EDT Therapeutic range listed is for Unfractionated Heparin. LMW Heparin therapeutic range: 0.50-1.20 IU/mL Haim Garland MD LAB BLOOD ORDERABLES Final Resu lt Performing Organization Address City/[facility] Co de Phone Number [facility] [address] [place] [address], [place] [phone] * Magnesium (2025 1:32 AM EDT) [facility] Magnesium 2.1 1.9 - 2.6 mg/dL LAB CHEMISTRY METHOD 2025 2:49 AM EDT [facility] Blood Venous blood specimen / Unknown Venipuncture / Unknown 2025 1:32 AM EDT 2025 2:21 AM EDT Kristine MCKEON LAB BLOOD ORDERABLES Fin al Result [facility] [address] [place] [address], [place] [phone] * (ABNORMAL) Comprehensive Metabolic Panel (CMP) (2025 1:32 AM EDT) [facility] Sodium 139 133 - 145 mmol/L LAB CHEMISTRY METHOD 2025 3:03 AM [facility] Potassium 4.1 3.5 - 5.5 mmol/L LAB CHEMISTRY METHOD 2025 3:03 AM [facility] Chloride 104 96 - 110 mmol/L LAB CHEMISTRY METHOD 2025 3:03 AM [facility] CO2 30 21 - 32 mmol/L LAB CHEMISTRY METHOD 2025 3:03 AM [facility] Anion Gap 5 3 - 11 LAB CHEMISTRY METHOD 2025 3:03 AM [facility] Glucose 108(H) 70 - 100 mg/dL LAB CHEMISTRY METHOD 2025 3:03 AM [facility] BUN 28(H) 5 - 25 mg/dL LAB CHEMISTRY METHOD 2025 3:03 AM [facility] Creatinine 0.90 0.70 - 1.30 mg/dL LAB CHEMISTRY METHOD 2025 3:03 AM [facility] eGFR 97 >=60 mL/min/1. 73m2 LAB CHEMISTRY METHOD 2025 3:03 AM [facility] Comment:Calculation based on the Chronic Kidney Disease Epidemiology Collaboration (CKD-EPI) equation refit without adjustment for race. BUN/Creatinine Ratio 31.1 LAB CHEMISTRY METHOD 2025 3:03 AM [facility] Calcium 9.0 8.5 - 10.5 mg/dL LAB CHEMISTRY METHOD 2025 3:03 AM [facility] AST (SGOT) 13 10 - 42 unit/L LAB CHEMISTRY METHOD 2025 3:03 AM [facility] ALT (SGPT) 24 10 - 60 unit/L LAB CHEMISTRY METHOD 2025 3:03 AM [facility] Alkaline Phosphatase 160(H) 42 - 121 unit/L LAB CHEMISTRY METHOD 2025 3:03 AM [facility] Total Protein 6.0 6.0 - 8.0 g/dL LAB CHEMISTRY METHOD 2025 3:03 AM [facility] Albumin 3.3 3.2 - 5.0 g/dL LAB CHEMISTRY METHOD 2025 3:03 AM [facility] Total Bilirubin 0.1 0.0 - 1.4 mg/dL LAB CHEMISTRY METHOD 2025 3:03 AM [facility] Blood Venous blood specimen / Unknown Venipuncture / Unknown 2025 1:32 AM EDT 2025 2:21 AM EDT us Kristine MCKEON LAB BLOOD ORDERABLES Fin al Result [facility] [address] [place] [address], * Vascular US Duplex Lower Extremity Venous [...] - Final from Last 3 Months Insurance [employer] MEDICARE Member Subscriber Plan / Payer (Ef fective 2017-Present) Name:STEVEN SUBRAMANIAN Relation to Subscriber:Self Name:Steven Subramanian Payer ID:[id number] Group ID:[id number] Type:Not on file Address: [place] [address] [place] [address] Care Teams Repairer Welding Systems And Equipment Relationship Specialty Start Date End Date Name, MD Leland [address] [place], [place] PCP - General 01/06/15
--- OUTSIDE RECORDS SUMMARY | 2025-05-03 14:38 | XMS_ITS | Encounter Summary ---
Author Organization [employer] Address [address] [facility] 7t [place] [address] Care Team Providers Care Pillow Filler Name Role Phone Name, Leland MIMS Primary Care Provider [phone] Reason for Visit * Reason Onset Date Comments Med Refill 04/01/2025 Encounter Details Date Type Department Care Team ([facility] st Contact Info) Description 04/01/2025 Telephone [facility]ICINE [address] [place], [place] [phone] Name, MD Leland [address] [place] [address] Med Refill Social History Tobacco Use Types [...] Telephone Encounter - Serenity Vogt LPN - 04/01/2025 10:02 AM EDT Medication pended to PCP. * Telephone Encounter - Tor Chun - 04/01/2025 9:54 AM EDT TC from pt requesting medication refill. Medications needing refill : zolpidem (Ambien) 10 MG tablet To be sent to: [facility] documented in this encounter Plan of Treatment Upcoming Encounters Date Type Department Care Team (Late st Contact Info) Description 07/10/2025 2:00 PM EST Telemedicine [facility] [address] [place] [address] Name, MD Leland [address] [place] [address] 10/18/2025 2:00 PM EDT Office Visit [facility] OPTOMETRY [address] [place] [address] Hortencia Hampton, OD [address] [place] [address] documented as of this encounter Visit Diagnoses Not on filedocumented in this encounter Additional Health Concerns Assessment Noted Time PHQ-9 Depression Total Score: 0 09/14/19 24 3:10 PM EDT documented as of this encounter Care Teams Pillow Filler Relationship Specialty Start Date End Date Name, MD Leland [address] [place] [address] PCP - General Family Medicine 08/26/15 documented as of this encounter
--- OUTSIDE RECORDS SUMMARY | 2025-05-03 14:38 | XMS_ITS | Encounter Summary ---
Author Organization [employer] Address [address] [facility] 7t [place] [address] Care Team Providers Care Motion Picture Commentator Name Role Phone Name, Leland MIMS Primary Care Provider [phone] Reason for Referral * Consultation (Routine) - Authorized Specialty Diagnoses / Procedures Referred By Contac t Referred To Contact Vascular Surgery Diagnoses Deep vein thrombosis (DVT) of femoral vein of left lower extremity, unspecified chronicity (HCC) Olga العلي MD [address] [place] [address] Phone: tel: fax: [facility] [address] [facility] [address] [place] [address] Phone: tel: fax: Referral ID Status Reason Start Date Expiration Date Visits Requested Visits Authorized [id number] Authorized Specialty Services Required 2026 1 1 Encounter Details Date Type Department Care Team (Late st Contact Info) Description 2025 Orders Only [facility] MEDICINE [address] [place], [place] [phone] Olga العلي MD [address] [place], [place] [phone] Deep vein thrombosis (DVT) of femoral vein of left lower extremity, unspecified chronicity (HCC) (Primary Dx) Social History Tobacco Use Types [...] housing situation today? I have andrewarvind machuca 09/10/[address] you [...] Info) Description 07/10/2025 2:00 PM EST Telemedicine [facility] MEDICINE [address] [place] [address] Name, MD Leland [address] [place] [address] 10/18/2025 2:00 PM EDT Office Visit [facility] OPTOMETRY [address] [place] [address] Hortencia Hampton, OD [address] [place] [address] Scheduled Referrals Name Type Priority Associated Diagnoses Orde r Schedule Referral to Vascular Surgery Outpatient Referral Routine Deep vein thrombosis (DVT) of femoral vein of left lower extremity, unspecified chronicity (HCC) Expected: 2025 (Approximate), Expires: 2026 documented as of this encounter Visit Diagnoses Diagnosis Deep vein thrombosis (DVT) of femoral vein of left lower extremity, unspecified chronicity (HCC)- Primary documented in this encounter Additional Health Concerns Assessment Noted Time PHQ-9 Depression Total Score: 0 09/14/19 24 3:10 PM EDT documented as of this encounter Care Teams Motion Picture Commentator Relationship Specialty Start Date End Date Name, MD Leland [address] [place] [address] PCP - General Family Medicine 08/26/15 documented as of this encounter
--- OUTSIDE RECORDS SUMMARY | 2025-05-03 14:38 | XMS_ITS | Encounter Summary ---
Author Organization [employer] Address [address] [facility] [address] [place] [address] Care Team Providers Care Plastic Surgery Assistant Name Role Phone Name, Leland MIMS Primary Care Provider [phone] Reason for Visit * Reason Onset Date Comments Med Refill 01/02/2024 Encounter Details Date Type Department Care Team ([facility] st Contact Info) Description 01/02/2024 Telephone [facility] [address] [place] [address] Name, MD Leland [address] [place], [place] [phone] Med Refill Social History Tobacco Use Types [...] 10 MG tablet To be sent to: [facility] - [place], [place] - [address] [place] [address] documented in this encounter Plan of Treatment Upcoming Encounters Date Type Department Care Team (Late st Contact Info) Description 07/10/2025 2:00 PM EST Telemedicine [facility] [address] [place] [address] Name, MD Leland [address] [place] [address] 10/18/2025 2:00 PM EDT Office Visit [facility] OPTOMETRY [address] [place] [address] Memo, Hortencia, OD [address] [place], [place] [phone] documented as of this encounter Visit Diagnoses Not on filedocumented in this encounter Additional Health Concerns Assessment Noted Time PHQ-9 Depression Total Score: 0 09/14/19 24 3:10 PM EDT documented as of this encounter Care Teams Plastic Surgery Assistant Relationship Specialty Start Date End Date Name, MD Leland [address] [place] [address] PCP - General Family Medicine 08/26/15 documented as of this encounter
--- OUTSIDE RECORDS SUMMARY | 2025-05-03 14:38 | XMS_ITS | Patient Health Record ---
Author [facility] Address [address] [facility] [place] [address] Care Team Providers Care Outboard Motor Tester Name Role Phone Name Leland MIMS Primary Care Provider Unavailyves e Alex Smithmie Unavailable [phone] Nalini Dyer Unavailable [phone] Allergies No Known Allergies Reason For Referral No Information Medications Medication SIG (Take, Route, Frequency, Duration) Notes Start Date End Date Status Ammonium Lactate 12 % 1 application Exte rnally Twice a day; Duration: 30 days Not-Taking Custom Orthotics as directed 11/03/2021 Not-Taking Ciclopirox 0.77 % 1 application V Belt Mold Assembler And Curer ally Twice a day; Duration: 30 days 07/15/2022 Not-Taking Pradaxa 150 MG 1 capsule Orally Twi ce a day Not-Taking Acetaminophen 500 MG 1 tablet as needed Orally every 6 hrs; Duration: 14 days 01/28/2023 Not-Taking Naproxen 500 MG 1 tablet Orally WITH FOOD Twice a day; Duration: 14 days 01/28/2023 Not-Taking Piroxicam 20 MG TAKE 1 CAPSULE BY [facility] EVERY DAY WITH FOOD FOR 30 DAYS; Duration: 30 Not-Taking Medrol juan j 4mg as directed orally a s directed; Duration: 6 days 05/20/2022 Not-T aking Eliquis 5 MG as directed Orally Not-Taking Lisinopril 5 MG 1 tablet Orally Once a day; Duration: 30 day(s) Active Gabapentin 800 MG 1 tablet Orally Once a day; Duration: 30 day(s) Active Immunizations Vaccine Route Administration Date Status Comme [...] W/U Status Risk Notes Problem Plantar wart (43394600) Plantar wart (B07.0) Active confirmed Problem Acquired hammer toe of left foot (8140168817466627 ) Other hammer toe(s) (acquired), left foot (M20.42) Active confirmed Problem Acquired hammer toe of right foot (1358774092685967 ) Hammer toe of right foot (M20.41) Active confirmed Problem Neuropathy (041751784) Neuropathy (G62.9) Active confirmed Problem Localized, primary osteoarthritis of the ankle and/or foot (139463156) Osteoarthritis of right ankle and foot (M19.071) Active confirmed Problem PlantarFlexion o f metatarsal of left foot (M21.6X2) Active confirmed Problem Gouty arthritis of left foot (3161673953746791 ) Gouty arthritis of left foot (M10.9) Active confirmed Vital Signs Blood pressure diastolic 80 mm Hg 04/22/2025 Height 6ft in 04/22/2025 Blood pressure systolic 129 mm Hg 04/22/2025 Weight 288 lbs 04/22/2025 BMI 39.06 kg/m2 04/22/2025 Encounters Encounter Location Date Provider Diagnosis [facility] [address] [address] 05/21/2024 Nalini Dyer Tinea unguium B35.1 ; Metatarsalgia, left foot M77.42 ; Pain in right toe(s) M79.674 ; Pain in left toe(s) M79.675 ; Xerosis of skin L85.3 ; PlantarFlexion of metatarsal of left foot M21.6X2 ; Other hammer toe(s) (acquired), left foot M20.42 ; Hammer toe of right foot M20.41 and Bursitis of intermetatarsal bursa of left foot M77.[address] [address] 09/06/2024 Nalini Perica Pain in right toe(s) M79.674 ; Onychomycosis B35.1 ; Pain in left toe(s) M79.675 ; Plantar wart B07.0 and Left foot pain M79.[address] [address] 11/15/2024 Nalini Perica Pain in right toe(s) M79.674 ; Onychomycosis B35.1 ; Pain in left toe(s) M79.675 ; Plantar wart B07.0 and Left foot pain M79.[address] [address] 02/14/2025 Nalini Perica Pain in right toe(s) M79.674 ; Onychomycosis B35.1 and Pain in left toe(s) M79.[address] [address] 04/22/2025 Nalini Perica Pain in right toe(s) M79.674 [...] - M79.674) 02/14/2025 Onychomycosis (ICD-10 - B35.1) 04/22/2025 Pain in right toe(s) (ICD-10 - M79.674) 04/22/2025 Onychomycosis (ICD-10 - B35.1) 11/15/2024 Onychomycosis (ICD-10 [...] Pain in left toe(s) (ICD-10 - M79.675) 04/22/2025 Pain in left toe(s) (ICD-10 - M79.675) [...] X ray : Foot, right 3V 01/27/2023 [id number] NAIL, 6 OR MORE 11/03/2021 [id number] NAIL, 6 OR MORE 01/19/202266553, J0702- INJECT TENDON ORIGIN/INSER T 01/27/2023, [id number]/INJECT, JOINT/BURSA 0 07/02/2022 X ray : Ankle, right 3V 01/27/2023 Next Appt Details Provider Name:Nalini addison, 07/08/2025 01:30:00 PM, [address] [facility], [place], [address], Insurance Providers Payer Name Payer Address Payer Phone Subscriber Number Group Number Insured Name Patient Relationship to Insured Coverage Start Date Coverage End Date [facility] [employer] Claims [address] [place] [phone] [id number] Steven Subramanian Self - patient is the insured Medical (General) History Medical History History ICD Code Arthritis Depression Psoriasis/eczema Surgical History Surgery Date(Month/Year) ear tubes Hospitalization History Reason Date(Month/Year) blood clot 09/04 [facility] leg issue, cyst [facility]- blood clot 07/2021
--- OUTSIDE RECORDS SUMMARY | 2025-05-03 14:38 | XMS_ITS | Encounter Summary ---
Author Organization [employer] Address [address] [facility] [address]t [place] [address] Care Team Providers Care Computing Architect Name Role Phone Name, Leland MIMS Primary Care Provider [phone] Reason for Visit * Reason Onset Date Comments Med Refill 07/28/2023 Encounter Details Date Type Department Care Team ([facility] st Contact Info) Description 07/28/2023 Telephone [facility] [address] [place] [address] Name, MD Leland [address] [place], [place] [phone] Med Refill Social History Tobacco Use Types [...] Vogt LPN - 07/28/2023 11:52 AM EST SITE FOREMAN checked 07/28/23 last filled on 06/17/23 refill 2/3 patient should have 1 refill left. * Telephone Encounter - Hailee Louie - 07/28/2023 11:08 AM EST TC from pt requesting medication refill. Medications needing refill : gabapentin (Neurontin) 800 MG tablet To be sent to: [facility] - [place], [place] - [address] [place] [address] documented in this encounter Plan of Treatment Upcoming Encounters Date Type Department Care Team (Late st Contact Info) Description 07/10/2025 2:00 PM EST Telemedicine [facility] [address] [place] [address] Name, MD Leland [address] [place] [address] 10/18/2025 2:00 PM EDT Office Visit [facility] OPTOMETRY [address] [place], [place] [phone] Hortencia Hampton, LESLI [address] [place] [address] documented as of this encounter Visit Diagnoses Not on filedocumented in this encounter Additional Health Concerns Assessment Noted Time PHQ-9 Depression Total Score: 0 09/07/19 23 1:16 PM EDT documented as of this encounter Care Teams Computing Architect Relationship Specialty Start Date End Date Name, MD Leland [address] [place] [address] PCP - General Family Medicine 08/26/15 documented as of this encounter
--- OUTSIDE RECORDS SUMMARY | 2025-05-03 14:38 | XMS_ITS | Clinical Summary ---
Author Organization [employer] Address [address] [facility] 7t [place] [address] Care Team Providers Care Per Diem Physical Therapist Name Role Phone Name, Leland MIMS Primary Care Provider [phone] Allergies No known active allergies Medications * [...] or split. 100 tablet 1 024 Active Anoro Ellipta 62.5-25 MCG/ACT aerosol [...] not crush or chew. 60 capsule 11 5 5:17 PM EST Active lidocaine (Lidoderm) 5 % patchIndication s:Chronic pain syndrome Apply 1 patch topically Once per day. Remove & discard patch within 12 hours or as directed by MD. 30 patch 2 Active Blood Pressure kit 1 Device Once per day. 1 kit Active gabapentin (Neurontin) 800 MG tabletIndicatio ns:Chronic pain syndrome TAKE 1 TABLET BY MOUTH THREE TIMES DAILY 90 tablet 3 5 5:17 PM EST Active propranolol (Inderal) 80 MG tablet Take 1 tablet by mouth 2 times daily. Active tamsulosin (Flomax) 0.4 MG 24 hr capsule Take 1 capsule by mouth Once per day. Active lisinopril 5 MG tablet Take 1 tablet (5 mg) by mouth Once per day. 30 tablet 11 5 5:17 PM EST 025 2025 Active varenicline (Chantix) 1 MG tablet Take 1 tablet (1 mg) by mouth 2 times daily. 56 tablet 1 025 2024 Active guaiFENesin (Mucinex) 600 MG 12 hr tabletIndicatio ns:Complaint of nasal congestion Take 2 tablets (1,200 mg) by mouth 2 times daily. Do not crush, chew, or split. 120 tablet 11 025 2025 Active Diclofenac Sodium 1 % gelIndications: Chronic midline low back pain with sciatica, sciatica laterality unspecified APPLY 2 GRAMS TO AFFECTED AREA(S) TWICE DAILY 100 g Active Enoxaparin Sodium 150 MG/ML solution prefilled syringe Before injecting, remove 0.1 ml from the syringe, then inject the contents of 1 syringe under the skin every 12 hours Active memantine (Namenda) 5 MG tablet Take 1 tablet (5 mg) by mouth 2 times daily. 60 tablet 2 5 2:17 PM EST 2025 Active zolpidem (Ambien) 10 MG tabletIndicatio ns:Insomnia, unspecified type TAKE 1 TABLET BY MOUTH AT BEDTIME NEEDED for SLEEP 28 tablet 5 5:17 PM EST Active Xarelto 20 MG tablet Take 1 tablet (20 mg) by mouth with evening meal. 30 tablet 11 2024 Discontinued(I neffective) tiZANidine (Zanaflex) 4 MG tablet Take 1 tablet (4 mg) by mouth every 8 (eight) hours if needed for muscle spasms for up to 20 days. 60 tablet 2024 Discontinued(T herapy completed) Diclofenac Sodium 1 % gelIndications: Chronic midline low back pain with sciatica, sciatica laterality unspecified APPLY 2 GRAMS TO AFFECTED AREA(S) TWICE DAILY 100 g 025 2024 Discontinued(R eorder (will not trigger notification to Pharmacy)) guaiFENesin (Mucinex) 600 MG 12 hr tabletIndicatio ns:Complaint of nasal congestion,Acut e sinusitis with symptoms > 10 days Take 2 tablets (1,200 mg) by mouth 2 times daily. Do not crush, chew, or split. 120 tablet 11 025 2024 Discontinued(R eorder (will not trigger notification to Pharmacy)) dexAMETHasone (Decadron) 4 MG tabletIndicatio ns:Complaint of nasal congestion,Acut e sinusitis with symptoms > 10 days Take 1 tablet (4 mg) by mouth Once per day for 3 days. 3 tablet 025 2024 Discontinued(T herapy completed) zolpidem (Ambien) 10 MG tabletIndicatio ns:Insomnia, unspecified type TAKE 1 TABLET BY MOUTH EVERY DAY AT BEDTIME NEEDED FOR SLEEP 28 tablet 2024 Discontinued meloxicam (Mobic) 15 MG tablet Take 1 tablet (15 mg) by mouth Once per day. 30 tablet 025 2024 Enoxaparin Sodium 120 MG/0.8ML solution prefilled syringe Inject 120 mg under the skin every 12 (twelve) hours. 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 due to side effects (weight gain, osteoporosis, [...] to hx recent fall, fu with PCP Dyspnea on exertion 02/07/2024 Assessment & Plan [...] to the hospital, case was presented to [facility] I let them know patient should [...] continue care -pt had yesterday referral for LE US Recurrent deep vein thrombosis (CMS/HCC) 03/27/2 018 Depressive disorder 05/18/2017 Opioid dependence 05/03/2017 Foot [...] difficulty w his meds-does get help from [facility] ,states has VNA monthly -prescribed BP machine today and advised pt to monitor w [employer] waitstaff in 2 weeks -requested to RN team today ,given pt reports episodes of low BP sometimes so can be monitored -continue to f w PCP Obstructive sleep apnea syndrome 01/14/2016 Chronic pain 08/29/2015 Compression fracture of vertebral column (CMS/HC C) 08/29/2015 Idiopathic scoliosis 08/29/2015 Insomnia 08/29/2015 Severe obesity (CMS/HCC) 08/29/2015 Chronic narcotic use 08/29/2015 Tobacco dependence syndrome 08/29/2015 Rotator cuff disorder 03/21/2015 Overview (08/01/2024): Right sided with decreased range of motion. 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 Gouty arthritis of left foot 03/29/2023 03/29/2023 [...] lower limb 12/12/2015 09/14/2023 Acute pulmonary embolism (CMS/HCC) 12/12/2015 12/21/2022 Dyspepsia 02/02/2010 09/14/2023 Knee pain 07/14/2009 04/30/2025 Assessment & Plan (04/17/2024 3:53 PM EST): Had a fall on left knee. Abrasions on exam. Joint not irritable. See image in chart. -ordered XR 04/17/24 -start doxycycline 04/17/24 -referred to orthopedics 06/17/23 Encounters Date Type Department Care Team Description 05/02/[address] [address] Leland Brandon MD Durable Medical Equipment (Power recliner) 04/30/2025 1:15 PM EST Office Visit [address] [address] Leland Brandon MD Chronic pain syndrome (Primary Dx); Neurogenic claudication due to lumbar spinal stenosis; Acute deep vein thrombosis (DVT) of left lower extremity, unspecified vein (HCC); Primary osteoarthritis of left hip 04/30/[address] [address] Leland Brandon MD Insomnia, unspecified type 04/30/2025 Travel 04/19/2025 Patient Outreach [facility] [address] [place], [place] [phone] Leland Brandon MD 04/19/[address] [address] Leland Brandon MD Hospital Follow-up 04/19/[address] [address] Leland Brandon MD verbal order 04/19/[address] [address] Lashae West [place] chart prep 04/16/[address] [address] Leland Brandon MD Durable Medical Equipment 04/15/[address] [address] Leland Brandon MD Durable Medical Equipment (SCOOTER) 04/12/[address] [address] Rubina Richardson, PharmD 04/11/2025 Patient Outreach [facility] [address] [place] [address] Leland Brandon MD Transition Of Care (Tcm) (HDF scheduled. ) 04/10/2025 3:30 PM EDT Office Visit [facility] [address] [place] [address] Leland Brandon MD Acute deep vein thrombosis (DVT) of left lower extremity, unspecified vein (HCC) (Primary Dx); Recurrent deep vein thrombosis (CMS/HCC) (HCC); Neurogenic claudication due to lumbar spinal stenosis; Chronic midline low back pain with sciatica, sciatica laterality unspecified; Complaint of nasal congestion; Encounter for immunization 04/10/2025 Travel 04/10/2025 Telephone [facility] [address] [place] [address] Leland Brandon MD order 2025 Orders Only [facility] [address] [place] [phone] Olga العلي MD Deep vein thrombosis (DVT) of femoral vein of left lower extremity, unspecified chronicity (HCC) (Primary Dx) 2025 Telephone [facility] [address] [place] [address] Leland Brandon MD Nurse Triage [address] [address] Leland Brandon MD Transition Of Care (Tcm) 04/01/2025 6:20 PM EDT Office Visit [facility] [address] [place] [phone] Ricardo Rodriguez MD Carpal tunnel syndrome of left wrist (Primary Dx) 04/01/2025 Travel 04/01/2025 Refill [facility] [address] [place] [phone] Ana Larios NP Insomnia, unspecified type 04/01/2025 Telephone [facility] [address] [place] [address] Leland Brandon MD Med Refill 03/20/2025 Refill [facility] [address] [place] [address] Leland Brandon MD 03/13/2025 Telephone [facility] [address] [place] [address] Leland Brandon MD HDF 03/11/2025 5:40 PM EDT [facility] [address] [address] Skip Amanda MD Shortness of breath (Primary Dx) 03/11/2025 Telephone [facility] [address] [place] [phone] Kelsi Huff, RN Nurse Triage 03/11/2025 Travel 03/04/2025 6:00 PM EDT [facility] [address] [address] Lazarus Macias MD Complaint of nasal congestion (Primary Dx); Acute sinusitis with symptoms > 10 days; Hypertension, unspecified type 03/04/2025 Travel 03/04/2025 Telephone [facility] [address] [place] [address] Leland Brandon MD telephone call 03/04/2025 Refill [facility] [address] [place] [address] Leland Brandon MD Insomnia, unspecified type 02/20/2025 Telephone [facility] [address] [place] [address] Kelsi Huff, ANNITA 02/20/2025 Refill [facility] [address] [place] [address] Leland Brandon MD 02/19/2025 Telephone [facility] [address] [place] [phone] Leland Brandon MD Medication Question 02/15/2025 2:40 PM EDT [facility] [address] [address] Ana Larios NP Acute pain of right shoulder (Primary Dx); Left leg pain; Osteoarthritis of left shoulder due to rotator cuff injury 02/15/2025 Travel 02/15/2025 Telephone [facility] [address] [place] [address] Leland Brandon MD authroization from Last 3 Months Immunizations Immunization Administration Dates Next Due Influenza Injectable Quadriv alant Preservative Free IIV4 MDCK 04/10/2020 Influenza injectable quadriv alent IIV4 with preservative 03/20/2018,03/05/2016 Influenza injectable quadriv alent preservative free 04/05/2023,03/24/2021,05/17/2019 Influenza, IIV3, injectable 03/30/2017 Influenza, seasonal, injecta ble, preservative free 04/10/2025,11/15/2024,03/19/2024 Moderna Covid-19 Vaccine 12+ 06/18/2021,10/31/19 21,10/02/2020 Pneumococcal [...] Mass Index 38.22 04/30/2025 1:27 PM EST Plan of Treatment Upcoming Encounters Date Type Department Care Team (Late st Contact Info) Description 07/10/2025 2:00 PM EST Telemedicine [facility] [address] [place] [address] Name, MD Leland [address] [place] [address] 10/18/2025 2:00 PM EDT Office Visit [facility] [address] [place] [address] Hortencia Hampton, OD [address] [place] [address] Health Maintenance Due Date Last Done Comments CT Colonography 1965 FIT DNA/Cologuard 1965 FIT 1965 FOBT 1965 Sigmoidoscopy 1965 RSV Patients and Patients Aged 60 years or older (1 - Risk 50-74 years 1-dose series) 2013 COVID-19 Vaccine ( season) 2025 06/18/2021, 10/30/2020, 10/02/2020 Disability Screening 08/30/2025 08/30/2024 SDOH Screening 09/10/2025 09/10/2024 Depression Monitoring 10/09/2025 04/10/2025, 025 Alcohol/Substance Use Screening 11/16/2025 11/16/2024 Tobacco Screening 04/30/2026 04/30/2025 DTaP/Tdap/Td Vaccines (2 - Td or Tdap) 03/20/2028 03/20/2018, 07/09/1998 Lipid Panel 10/13/2028 10/14/2023, 08/12, 06/25/2020 Colonoscopy 07/14/2033 07/14/2023 Colorectal Cancer Screening 07/14/2033 Zoster Vaccines Completed 08/26/2020, 06/25/2020 Pneumococcal Vaccine: 50+ Years Completed 09/14/2023, 11/29/2015 HIV Screening Completed 10/14/2023 Hepatitis C Screening Completed 10/14/2023 Influenza Vaccine Completed 04/10/2025, , 03/19/2024, Additional history exists HIB Vaccines Aged Out [...] Procedure Name Priority Date/Time Associated Diagnosis Comments ECG 12-LEAD Routine 03/11/2025 6:36 PM EDT Shortness of breath POCT INFLUENZA A (ID NOW RAPID MOLECULAR) Routine 03/11/2025 6:09 PM EDT Shortness of breath POCT RAPID COVID ANTIGEN Routine 03/11/2025 6:09 PM EDT Shortness of breath POCT INFLUENZA B (ID NOW RAPID MOLECULAR) Routine 03/11/2025 6:08 PM EDT Shortness of breath XR SHOULDER 2+ VIEWS RIGHT Routine 02/15/2025 3:51 PM EDT Acute pain of right shoulder HEPATITIS C AB W/REFL TO HCV RNA, [...] Recently Relevant to Health Maintenance Results * ECG 12 lead (03/11/2025 6:36 PM EDT) Narrative Skip Amanda MD - 03/11/2025 6:36 PM EDT NSR 70, no arrhythmia, no ST-T changes, no Q-waves us Skip Amanda MD ECG ORDERABLES Final Result * POCT Rapid Influenza A PONCE ID NOW (03/11/2025 6:09 PM EDT) Influenza A Negative Negative, Indeterminate [facility] QC Media Lot # [id number] [facility] Lot# Expiration Date [facility] Swab 03/11/2025 6:09 PM EDT Skip Amanda MD POINT OF CARE TEST ENTER/EDIT OR DERABLES Final Result Performing Organization Address City/[facility]/ZIP Co de Phone Number [facility] [address] [place] [address] [phone] * POCT Rapid Covid-19 BinaxNOW (03/11/2025 6:09 PM EDT) Rapid COVID Ag Negative QC Media Lot # [id number] Lot# Expiration Date Swab 03/11/2025 6:09 PM EDT Skip Amanda MD POINT OF CARE TEST ENTER/EDIT OR DERABLES Final Result * POCT Rapid Influenza B PONCE ID NOW (03/11/2025 6:08 PM EDT) Influenza B Negative Negative, Indeterminate [facility] QC Media Lot # [id number] [facility] Lot# Expiration Date [facility] Swab 03/11/2025 6:08 PM EDT Skip Amanda MD POINT OF CARE TEST ENTER/EDIT OR DERABLES Final Result Performing Organization Address City/[facility]/ZIP Co de Phone Number [facility] [address] [place] [phone] * XR Shoulder 2+ Views Right (02/15/2025 3:51 PM EDT) Anatomical Region Laterality Modality Upper Extremities, Shoulder Right Radi ographic Imaging 02/15/2025 3:51 PM EDT Narrative 02/15/2025 3:57 PM EDT [address] [address] XRay Report Signed Patient: Steven Novak MR#: Marie [id number] : 1965 Acct:[id number] Age/Sex: 59 / M ADM Date: 02/15/25 Loc: HO.HHCX Attending Dr: Ana Larios ACCOUNTS RECEIVABLE SPECIALIST Ordering Physician: Ana Larios NP Date of Service: 02/15/25 Procedure(s): XR shoulder RT min 2V Accession Number(s): [id number] cc: Ana Larios NP Reason for Exam: [...] 02/15/25 1555 DD/ 1551 TD/TT: 02/15/25 1551 Telephone Operator Chief: Procedure Note Donotuseinterpreter, Image - 02/15/[address] [address] XRay Report Signed Patient: Baron NovakR#: Marie [id number] : 1965Acct:[id number] Age/Sex: 59 / MADM Date: 02/15/25 Loc: HO.HHCX Attending Dr: Ana Larios ACCOUNTS RECEIVABLE SPECIALIST Ordering Physician: Ana Larios NP Date of Service: 02/15/25 Procedure(s): XR shoulder RT min 2V Accession Number(s): [id number] cc: Ana Larios NP Reason for Exam: [...] Santana Greer MD 02/15/2025 03:55 PM EDT RP Dictated By: Santana Cross MD Signed By: <Electronically signed by Santana Garvin MDin OV> 02/15/25 1555 DD/ 1551 TD/TT: 02/15/25 1551 Telephone Operator Chief: Ana Larios ACCOUNTS RECEIVABLE SPECIALIST IMG XR PROCEDURES Final Result * Hepatitis C Antibody with Reflex to HCV, RNA, Quantitative, Real-Time PCR (10/14/2023 11:05 AM EDT) Hepatitis C Antibody Nonreactive Nonreactive [facility] Comment:Antibodies to HCV no t detected; does not exclude early acuteHCV infection. Blood Venous blood specimen / Unknown 10/14/2023 11:05 AM EDT 10/14/2023 1:15 PM EDT Leland Brandon MD LAB BLOOD ORDERABLES Final Resul t [facility] [address] [place] [phone] * HIV-1/2 Antigen and Antibodies, Fourth [...] below the limit ofdetection of this assay.The [employer] HIV Ag/Ab Combo assay result andsupplemental assay results should be interpreted inconjunction with the patient's clinical presentation,history and other laboratory results. If the results areinconsistent with clinical evidence, additional testing issuggested to confirm the result. Blood Venous blood specimen / Unknown 10/14/2023 11:05 AM EDT 10/14/2023 1:15 PM EDT us Leland Name LAB BLOOD ORDERABLES Final Resul t [facility] [address] [place] [phone] * (ABNORMAL) Lipid Panel, Standard (10/14/2023 11:05 AM EDT) Triglycerides 105 <150 mg/dL [facility] Comment:Desirable Triglyceri de: less than 150 mg/dLBorderline High Triglyceride 150-199 mg/dLHigh Triglyceride: 200-499 mg/dLVery High Triglyceride: greater than or equal to 5OO mg/dL Cholesterol 192 <200 mg/dL [facility] Comment:Desirable Cholestero l: less than 200 mg/dLBorderline High Cholesterol: 200-239 mg/dLHigh Cholesterol: greater than 239 mg/dL LDL Cholesterol Calculated 102(H) <100 mg/dL [facility] Comment:Desirable LDL: less than 100 mg/dLNear Optimal/Above Optimal LDL: 110- 129 mg/dLBorderline High LDL: 130-159 mg/dLHigh LDL: 160-189 mg/dLVery High LDL: greater than or equal to 190 mg/dL HDL Cholesterol 69 >40 mg/dL [facility] Comment:Desirable HDL: great er than 40 mg/dL Note: This HDL assay may give artificially low results in patients with liver disease. Blood Venous blood specimen / Unknown 10/14/2023 11:05 AM EDT 10/14/2023 1:15 PM EDT us Leland Brandon MD LAB BLOOD ORDERABLES Final Resul t [facility] [address] [place] [phone] * Colonoscopy (07/14/2023) Colonoscopy Normal Normal Comment:Normal Colonoscopy r epeat 10 years us Leland Brandon MD HEALTH MAINTENANCE Final Result from Last 3 Months or Most Recently Relevant to Health Maintenance Insurance [employer] < [address] [place] [phone] Care Teams Per Diem Physical Therapist Relationship Specialty Start Date End Date Name, MD Leland [address] [place] [phone] PCP - General Family Medicine 08/26/15
--- OUTSIDE RECORDS SUMMARY | 2025-05-03 14:38 | XMS_ITS | Encounter Summary ---
Author Organization [employer] Address [address] [facility] 7t [place] [address] Care Team Providers Care Acquisitions Analyst Name Role Phone Name, Leland MIMS Primary Care Provider [phone] Reason for Visit * Reason Onset Date Comments Durable Medical Equipment 05/02/2025 Power recliner Encounter Details Date Type Department Care Team ([facility] Contact Info) Description 05/02/2025 Telephone [facility] [address] [place], [place] [phone] Name, MD Leland [address] [place] [address] Durable Medical Equipment (Power recliner) Social History Tobacco Use Types Packs/Day Years [...] encounter Miscellaneous Notes * Telephone Encounter - Steffany Wheeler - 05/02/2025 11:58 AM EST Rx generated, will be scanned within 24 hrs. [facility] healthcare associate as been made aware. * Telephone Encounter - Steffany Wheeler - 05/02/2025 11:58 AM EST ----- Message from Leland Brandon MD sent at 04/30/2025 2:09 PM EST ----- Sc, I would like to get this patient a power recliner. My note is attached documented in this encounter Plan of Treatment Upcoming Encounters Date Type Department Care Team (Late st Contact Info) Description 07/10/2025 2:00 PM EST Telemedicine [facility] [address] [place] [address] Name, MD Leland [address] [place] [address] 10/18/2025 2:00 PM EDT Office Visit [facility] [address] [place], [place] [phone] MemoHortencia rubio, OD [address] [place] [address] documented as of this encounter Visit Diagnoses Not on filedocumented in this encounter Additional Health Concerns Assessment Noted Time PHQ-9 Depression Total Score: 15 025 3:41 PM EDT documented as of this encounter Care Teams Acquisitions Analyst Relationship Specialty Start Date End Date Name, MD Leland [address] [place] [address] PCP - General Family Medicine 08/26/15 documented as of this encounter
--- OUTSIDE RECORDS SUMMARY | 2025-05-03 14:38 | XMS_ITS | Encounter Summary ---
Author Organization [employer] Address [address] [facility] 7t [place] [address] Care Team Providers Care Packing Machine Can Feeder Name Role Phone Name, Leland MIMS Primary Care Provider [phone] Reason for Visit * Reason Comments Med Refill Encounter Details Date Type Department Care Team (Late Contact Info) Description 10/22/[address] [facility] [address] [place] [address] [phone] Name, MD Leland [address] [place] [address] [phone] Insomnia, unspecified type Social History Tobacco Use [...] Department Care Team (Late Contact Info) Description 07/10/2025 2:00 PM EST Telemedicine [facility] [address] [place] [address] Name, MD Leland [address] [place], [place] [phone] 10/18/2025 2:00 PM EDT Office Visit [facility] [address] [place], [place] [phone] Memo, Hortencia, OD [address] [place], [place] [phone] documented as of this encounter Visit Diagnoses Diagnosis Insomnia, unspecified type documented in this encounter Additional Health Concerns Assessment Noted Time PHQ-9 Depression Total Score: 0 09/07/19 23 1:16 PM EDT documented as of this encounter Care Teams Packing Machine Can Feeder Relationship Specialty Start Date End Date Name, MD Leland [address] [place], [place] [phone] PCP - General Family Medicine 08/26/15 documented as of this encounter
--- OUTSIDE RECORDS SUMMARY | 2025-05-03 14:38 | XMS_ITS | Encounter Summary ---
Author Organization [employer] Address [address] [facility] [address] [place] [address] Care Team Providers Care Make Up Girl Name Role Phone Name, Leland MIMS Primary Care Provider Reason for Visit * Reason Comments Med Refill Encounter Details Date Type Department Care Team ([facility] st Contact Info) Description 01/28/2025 Refill [facility] [address] [place], [place] [phone] Sonia Treviño, ANP [address] [place], [place] [phone] Insomnia, unspecified type Social History Tobacco Use [...] Info) Description 07/10/2025 2:00 PM EST Telemedicine [facility] [address] [place] [phone] NameLeland MD [address] [place] [address] 10/18/2025 2:00 PM EDT Office Visit [facility] [address] [place], [place] [phone] Memo, Hortencia, OD [address] [place] [address] documented as of this encounter Visit Diagnoses Diagnosis Insomnia, unspecified type documented in this encounter Additional Health Concerns Assessment Noted Time PHQ-9 Depression Total Score: 0 09/14/19 24 3:10 PM EDT documented as of this encounter Care Teams Make Up Girl Relationship Specialty Start Date End Date Leland Brandon MD [address] [place] [phone] PCP - General Family Medicine 08/26/15 documented as of this encounter
--- OUTSIDE RECORDS SUMMARY | 2025-05-03 14:38 | XMS_ITS | Encounter Summary ---
Author Organization [employer] Address [address] [facility] 7t [place] [address] Care Team Providers Care Corporate Communications Associate Name Role Phone Name, Leland MIMS Primary Care Provider [phone] Reason for Visit * Reason Onset Date Comments Call Back Request 08/30/2024 Encounter Details Date Type Department Care Team ([facility] st Contact Info) Description 08/30/2024 Telephone [facility] MEDICINE [address] [place] [address] Name, MD Leland 230 [place] [address] Call Back Request Social History Tobacco Use [...] walks with no problem due to procedure. Gabonese speaker documented in this encounter Plan of Treatment Upcoming Encounters Date Type Department Care Team ([facility] st Contact Info) Description 07/10/2025 2:00 PM EST Telemedicine [facility] MEDICINE [address] [place], [place] [phone] Name, MD Leland [address] [place] [address] 10/18/2025 2:00 PM EDT Office Visit [facility] OPTOMETRY [address] [place] [address] Hortencia Hampton, OD 230 [place] [address] documented as of this encounter Visit Diagnoses Not on filedocumented in this encounter Additional Health Concerns Assessment Noted Time PHQ-9 Depression Total Score: 0 09/14/19 24 3:10 PM EDT documented as of this encounter Care Teams Corporate Communications Associate Relationship Specialty Start Date End Date Name, MD Leland [address] [place] [address] PCP - General Family Medicine 08/26/15 documented as of this encounter
--- OUTSIDE RECORDS SUMMARY | 2025-05-03 14:38 | XMS_ITS | Encounter Summary ---
Author Organization [employer] Address [address] [facility] 7t [place] [address] Care Team Providers Care Underground Heavy Equipment Operator Name Role Phone Name, Leland MIMS Primary Care Provider [phone] Reason for Visit * Reason Comments Med Refill Encounter Details Date Type Department Care Team ([facility] st Contact Info) Description 06/20/2023 Refill [facility] MEDICINE [address] [place] [address] Name, MD Leland [address] [place], [place] [phone] Insomnia, unspecified type Social History Tobacco Use [...] t he electric, gas, oil or water Driver Hire threatened to shut off services in your [...] Info) Description 07/10/2025 2:00 PM EST Telemedicine [facility] MEDICINE [address] [place] [address] NameLeland MD [address] [place] [address] 10/18/2025 2:00 PM EDT Office Visit [facility] OPTOMETRY [address] [place], [place] [phone] Memo, Hortencia, OD [address] [place] [address] documented as of this encounter Visit Diagnoses Diagnosis Insomnia, unspecified type documented in this encounter Additional Health Concerns Assessment Noted Time PHQ-9 Depression Total Score: 0 09/07/19 23 1:16 PM EDT documented as of this encounter Care Teams Underground Heavy Equipment Operator Relationship Specialty Start Date End Date Leland Brandon MD [address] [place] [address] PCP - General Family Medicine 08/26/15 documented as of this encounter
--- OUTSIDE RECORDS SUMMARY | 2025-05-03 14:38 | XMS_ITS | Encounter Summary ---
Author Organization [employer] Address [address] [facility] 7t [place] [address] Care Team Providers Care General Agent Name Role Phone Name, Leland MIMS Primary Care Provider [phone] Reason for Visit * Reason Onset Date Comments Nurse Triage 2025 Encounter Details Date Type Department Care Team ([facility] st Contact Info) Description 2025 Telephone [facility] MEDICINE [address] [place], [place] [phone] Name, MD Leland [address] [place] [address] Nurse Triage Social History Tobacco Use Types [...] encounter Miscellaneous Notes * Telephone Encounter - Kelsi Huff RN - 2025 2:59 PM EDT Tc to pt via BLS ID: [id number] who reports they went to [facility] on 04/02/25 leg swelling.They did imaging and found a blood clot in pt left lower leg. Pt currently rates it a 7/10 and reports it hurts when they ambulate. Pt reports they're on xarelto but has not taken it since about two days ago. Pt reports they received a dose of Lovenox yesterday when they were in the hospital. Pt denies chest pain, shortness of breath, headaches, lightheadedness, vision changes, pain radiating nausea and vomiting. Pt reports they're feeling pain in their buttocks and rates it about an 10/10 thatworsen when ambulating. Pt reports can they have a machine since they have been experiencing shortness of breath and short story writer advised they should return back to the ED immediately. Pt declines need to go to ED and states the shortness and breath comes and goes. Pt advised fr pt to return back to the ED to be evaluated if symptoms worsens. Pt reports [facility] who said the lovenox will be ready for pick and shovel worker at 1: 30 pm. Pt advised short story writer will contact them with a sooner appointment with PCP due to the importance for a sooner follow up and DVT management. Pt requested for short story writer to contact vascular to schedule them for a follow up appointment. Tc to [facility] pharmacy reports they received a script for the lovenox but it can only be filled partially and they have to order more. ED precautions reviewed and pt verbalized understanding. [facility] to [facility]. Tc to [facility] vascular who reports pt has not been seen since 2021 and need a new referral. Pt has a follow up with PCP on 04/10/25. Protocol Used: No Protocol Available (Adult) Care Advice Discussed: * Reasons To Call Back - New symptoms develop - You become worse * Telephone Encounter - Leland Hicks - 2025 10:02 AM EDT Patient calling to report ED visit on : Date: 04/02/2025 Hospital: [facility] Seen for: Blood clot in the buttock area and leg Symptomatic Yes *if yes message should go to Triage Patient advised will forward to team nurse for follow up Contact pt at [phone] documented in this encounter Plan of Treatment Upcoming Encounters Date Type Department Care Team (Late st Contact Info) Description 07/10/2025 2:00 PM EST Telemedicine [facility] MEDICINE [address] [place], [place] [phone] Name, MD Leland [address] [place] [address] 10/18/2025 2:00 PM EDT Office Visit [facility] OPTOMETRY [address] [place], [place] [phone] Hortencia Hampton, LESLI 230 [place] [address] documented as of this encounter Visit Diagnoses Not on filedocumented in this encounter Additional Health Concerns Assessment Noted Time PHQ-9 Depression Total Score: 0 09/14/19 24 3:10 PM EDT documented as of this encounter Care Teams General Agent Relationship Specialty Start Date End Date Name, MD Leland [address] [place] [address] PCP - General Family Medicine 08/26/15 documented as of this encounter
--- OUTSIDE RECORDS SUMMARY | 2025-05-03 14:38 | XMS_ITS | Encounter Summary ---
Author Organization [employer] Address [address] [facility] 7t [place] [address] Care Team Providers Care Crop Grain Or Livestock Farm Manager Name Role Phone Name, Leland MIMS Primary Care Provider [phone] Encounter Details Date Type Department Care Team (Late st Contact Info) Description 07/19/2023 Abstract [facility] MEDICINE [address] [place], [place] [phone] Name, MD Leland 230 [place], [place] [phone] Social History Tobacco Use Types Packs/Day Years [...] Info) Description 07/10/2025 2:00 PM EST Telemedicine [facility] MEDICINE [address] [place] [address] NameLeland MD 230 [place] [address] 10/18/2025 2:00 PM EDT Office Visit [facility] OPTOMETRY [address] [place] [address] Hortencia Hampton, OD 230 [place] [address] documented as of this encounter Procedures Procedure [...] encounter Care Teams Crop Grain Or Livestock Farm Manager Relationship Specialty Start Date End Date NameLeland MD [address] [place] [address] PCP - General Family Medicine 08/26/15 documented as of this encounter
--- OUTSIDE RECORDS SUMMARY | 2025-05-03 14:38 | XMS_ITS | Encounter Summary ---
Author Organization [employer] Address [address] [facility] 7t [place] [address] Care Team Providers Care Clinic Charge Nurse Name Role Phone Name, Leland MIMS Primary Care Provider [phone] Reason for Visit * Reason Comments Med Refill Encounter Details Date Type Department Care Team ([facility] st Contact Info) Description 02/20/[address] [facility] MEDICINE [address] [place], [place] [phone] Name, MD Leland [address] [place], [place] [phone] Social History Tobacco Use Types Packs/Day Years [...] Info) Description 07/10/2025 2:[address] [facility] MEDICINE [address] [place] [address] NameLeland MD [address] [place] [address] 10/18/2025 2:00 PM EDT Office Visit [facility] OPTOMETRY [address] [place] [address] Memo, Hortencia, OD 230 [place] [address] documented as of this encounter Visit Diagnoses Not on filedocumented in this encounter Additional Health Concerns Assessment Noted Time PHQ-9 Depression Total Score: 0 09/14/19 24 3:10 PM EDT documented as of this encounter Care Teams Clinic Charge Nurse Relationship Specialty Start Date End Date NameLeland MD 230 [place] [address] PCP - General Family Medicine 08/26/15 documented as of this encounter
--- OUTSIDE RECORDS SUMMARY | 2025-05-03 14:38 | XMS_ITS | Encounter Summary ---
Author Organization [employer] Address [address] [facility] [address] 7t [place] [address] Care Team Providers Care Massage Therapy Instructor Name Role Phone Name, Leland MIMS Primary Care Provider [phone] Reason for Visit * Reason Comments Med Refill Encounter Details Date Type Department Care Team (Late st Contact Info) Description 07/25/2024 Refill [facility] 230 [place], [place] [phone] Stacey Wade MD [address] [place], [place] [phone] Lumbago with sciatica, right side Social History [...] Info) Description 07/10/2025 2:00 PM EST Telemedicine [facility] MEDICINE 230 [place] [address] Name, MD Leland [address] [place] [address] 10/18/2025 2:00 PM EDT Office Visit [facility] OPTOMETRY [address] [place] [address] Memo, Hortencia, OD [address] [place] [address] documented as of this encounter Visit Diagnoses Diagnosis Lumbago with sciatica, right side documented in this encounter Additional Health Concerns Assessment Noted Time PHQ-9 Depression Total Score: 0 09/14/19 24 3:10 PM EDT documented as of this encounter Care Teams Massage Therapy Instructor Relationship Specialty Start Date End Date NameLeland MD 230 [place] [address] PCP - General Family Medicine 08/26/15 documented as of this encounter
--- OUTSIDE RECORDS SUMMARY | 2025-05-03 14:38 | XMS_ITS | Encounter Summary ---
Author Organization [employer] Address [address] [facility] 7t [place] [address] Care Team Providers Care Sound Recording Technician Name Role Phone Name, Leland MIMS Primary Care Provider [phone] Reason for Visit * Reason Comments Med Refill Encounter Details Date Type Department Care Team (Late Contact Info) Description 02/21/2023 Refill [facility] MEDICINE [address] [place] [address] [phone] NameLeland MD [address] [place] [address] [phone] Insomnia, unspecified type Social History Tobacco Use [...] Info) Description 07/10/2025 2:00 PM EST Telemedicine [facility] MEDICINE [address] [place] [address] [phone] Name, MD Leland [address] [place] [address] [phone] 10/18/2025 2:00 PM EDT Office Visit [facility] OPTOMETRY [address] [place], [place] [phone] Hortencia Hampton, LESLI 230 [place] [address] documented as of this encounter Visit Diagnoses Diagnosis Insomnia, unspecified type documented in this encounter Additional Health Concerns Assessment Noted Time PHQ-9 Depression Total Score: 0 09/07/19 23 1:16 PM EDT documented as of this encounter Care Teams Sound Recording Technician Relationship Specialty Start Date End Date Name, MD Leland [address] [place] [address] PCP - General Family Medicine 08/26/15 documented as of this encounter
--- OUTSIDE RECORDS SUMMARY | 2025-05-03 14:38 | XMS_ITS | Encounter Summary ---
Author Organization [employer] Address [address] [facility] 7t [place] [address] Care Team Providers Care Meter Record Clerk Name Role Phone Name, Leland MIMS Primary Care Provider [phone] Encounter Details Date Type Department Care Team (Late st Contact Info) Description 03/24/2023 Telephone [facility] MEDICINE [address] [place], [place] [phone] Name, MD Leland 230 [place] [address] Social History Tobacco Use Types Packs/Day Years [...] PCP pt is currently admitted to [facility] and was found with blood clots to both legs. Any questions, contact pt at [phone] documented in this encounter Plan of Treatment Upcoming Encounters Date Type Department Care Team (Late st Contact Info) Description 07/10/2025 2:00 PM EST Telemedicine [facility] MEDICINE [address] [place] [address] Name, MD Leland [address] [place] [address] 10/18/2025 2:00 PM EDT Office Visit [facility] OPTOMETRY [address] [place] [address] Memo, Hortencia, OD [address] [place] [address] documented as of this encounter Visit Diagnoses Not on filedocumented in this encounter Additional Health Concerns Assessment Noted Time PHQ-9 Depression Total Score: 0 09/07/19 23 1:16 PM EDT documented as of this encounter Care Teams Meter Record Clerk Relationship Specialty Start Date End Date NameLeland MD 230 [place] [address] PCP - General Family Medicine 08/26/15 documented as of this encounter
--- OUTSIDE RECORDS SUMMARY | 2025-05-03 14:38 | XMS_ITS | Encounter Summary ---
Author Organization [employer] Address [address] [facility] 7t [place] [address] Care Team Providers Care Final Assembler Name Role Phone Name, Leland MIMS Primary Care Provider [phone] Reason for Visit * Reason Onset Date Comments FYI 07/26/2024 Encounter Details Date Type Department Care Team ([facility] st Contact Info) Description 07/26/2024 Telephone [facility] MEDICINE [address] [place], [place] [phone] Name, MD Leland [address] [place] [address] FYI Social History Tobacco Use Types Packs/Day [...] trying. If any questions contact Sol at [phone] documented in this encounter Plan of Treatment Upcoming Encounters Date Type Department Care Team (Late st Contact Info) Description 07/10/2025 2:00 PM EST Telemedicine [facility] MEDICINE [address] [place] [address] Name, MD Leland [address] [place] [address] 10/18/2025 2:00 PM EDT Office Visit [facility] OPTOMETRY [address] [place] [address] Hortencia Hampton, OD 230 [place] [address] documented as of this encounter Visit Diagnoses Not on filedocumented in this encounter Additional Health Concerns Assessment Noted Time PHQ-9 Depression Total Score: 0 09/14/19 24 3:10 PM EDT documented as of this encounter Care Teams Final Assembler Relationship Specialty Start Date End Date Name, MD Leland [address] [place] [address] PCP - General Family Medicine 08/26/15 documented as of this encounter
--- OUTSIDE RECORDS SUMMARY | 2025-05-03 14:38 | XMS_ITS | Encounter Summary ---
Author Organization [employer] Address [address] [facility] [address] 7[address] [place] [address] Care Team Providers Care Drop Man Name Role Phone Name, Leland MIMS Primary Care Provider [phone] Reason for Visit * Reason Comments Med Refill Encounter Details Date Type Department Care Team ([facility] st Contact Info) Description 09/23/2023 Refill [facility] [address] [place] [address] Ila Lora MD [address] [place], [place] [phone] Social History Tobacco Use Types Packs/Day Years [...] Info) Description 07/10/2025 2:00 PM EST Telemedicine [facility] MEDICINE [address] [place] [address] Name, MD Leland 230 [place] [address] 10/18/2025 2:00 PM EDT Office Visit [facility] OPTOMETRY [address] [place] [address] Memo, Hortencia, OD 230 [place] [address] documented as of this encounter Visit Diagnoses Not on filedocumented in this encounter Additional Health Concerns Assessment Noted Time PHQ-9 Depression Total Score: 0 09/14/19 24 3:10 PM EDT documented as of this encounter Care Teams Drop Man Relationship Specialty Start Date End Date NameLeland MD [address] [place] [address] PCP - General Family Medicine 08/26/15 documented as of this encounter
--- OUTSIDE RECORDS SUMMARY | 2025-05-03 14:38 | XMS_ITS | Encounter Summary ---
Author Organization [employer] Address [address] [facility] 7t [place] [address] Care Team Providers Care Machine Made Shoe Unit Worker Name Role Phone Name, Leland MIMS Primary Care Provider [phone] Reason for Visit * Reason Onset Date Comments Verbal Order 07/24/2024 Encounter Details Date Type Department Care Team ([facility] st Contact Info) Description 07/24/2024 Telephone [facility] MEDICINE 230 [place], [place] [phone] Name, MD Leland [address] [place] [address] Verbal Order Social History Tobacco Use Types [...] your housing situation today? I have andrew machuac 09/06/[address] you li [...] EST Telephone call returned to Katey at [facility], spoke with Katey. Gave verbal orders for VNA care. Asked when last office visit was, advised it was 07/06/24 with PCP and also pt was seen in [facility] walk in clinic on 07/14/24. Katey verbalized understanding, no further questions. * Telephone Encounter - João Bhatt - 07/24/2024 4:34 PM EST Tc from Emelia with [facility] requesting verbal orders. Please contact Emelia at [phone] Opt 2. documented in this encounter Plan of Treatment Upcoming Encounters Date Type Department Care Team (Late st Contact Info) Description 07/10/2025 2:00 PM EST Telemedicine [facility] MEDICINE [address] [place] [address] Name, MD Leland [address] [place], [place] [phone] 10/18/2025 2:00 PM EDT Office Visit [facility] OPTOMETRY [address] [place], [place] [phone] Hortencia Hampton, OD 230 [place] [address] documented as of this encounter Visit Diagnoses Not on filedocumented in this encounter Additional Health Concerns Assessment Noted Time PHQ-9 Depression Total Score: 0 09/14/19 24 3:10 PM EDT documented as of this encounter Care Teams Machine Made Shoe Unit Worker Relationship Specialty Start Date End Date Name, MD Leland [address] [place] [address] PCP - General Family Medicine 08/26/15 documented as of this encounter
--- OUTSIDE RECORDS SUMMARY | 2025-05-03 14:38 | XMS_ITS | Encounter Summary ---
Author Organization [employer] Address [address] [facility] 7t [place] [address] Care Team Providers Care Dividing Machine Operator Helper Name Role Phone Name, Leland MIMS Primary Care Provider [phone] Encounter Details Date Type Department Care Team ([facility] Contact Info) Description 11/22/[address] [phone] Name, MD Leland [address] [place] [address] [phone] Social History Tobacco Use Types Packs/Day Years [...] ([facility] Contact Info) Description 07/10/2025 2:00 PM EST Telemedicine [facility] MEDICINE [address] [place] [address] Name, MD Leland [address] [place] [address] 10/18/2025 2:00 PM EDT Office Visit [facility] OPTOMETRY [address] [place] [address] Memo, Hortencia, OD [address] [place], [place] [phone] documented as of this encounter Visit Diagnoses Not on filedocumented in this encounter Additional Health Concerns Assessment Noted Time PHQ-9 Depression Total Score: 0 09/07/19 23 1:16 PM EDT documented as of this encounter Care Teams Dividing Machine Operator Helper Relationship Specialty Start Date End Date Name, MD Leland [address] [place] [address] PCP - General Family Medicine 08/26/15 documented as of this encounter
--- OUTSIDE RECORDS SUMMARY | 2025-05-03 14:39 | XMS_ITS | Encounter Summary ---
Author Organization [employer] Address [address] [facility] 7t [place] [address] Care Team Providers Care Nursing Scheduler Name Role Phone Name, Leland MIMS Primary Care Provider [phone] Reason for Visit * Reason Onset Date Comments Call Back Request 10/05/2024 Encounter Details Date Type Department Care Team ([facility] st Contact Info) Description 10/05/2024 Telephone [facility] MEDICINE 230 [place] [address] Name, MD Leland [address] [place] [address] Call Back Request Social History Tobacco Use [...] 10/05/2024 4:41 PM EDT Triage call with [facility] Aesthetic[place] [id number] Pt is calling in regards to concerns that Pt is diabetic. Pt does have dx of impaired glucose intolerance. Pt reports an open area behind left knee that has never healed and an ulcer . It is unclearto residential mortgage underwriter if this is a wound [...] 10/05/2024 4:01 PM EDT Called pt. Via [email or web address] auger operator [phone] Lorenzo Fraga. Triage nurse notified me that she is currently on phone with pt. No answer as pt. Is on other line. * Telephone Encounter - Loi Cobos - 10/05/2024 3:40 PM EDT TC from pt returning call regarding prior message. Contact pt at [phone] * Telephone Encounter - Vic Finnegan - [...] has not yet been contacted by the facility.Chief Commercial Officer does not see referral in system; pt states that his condition is worsening. ( Denied triage ) Please return call [phone] (BENINESE) documented in this encounter Plan of Treatment Upcoming Encounters Date Type Department Care Team (Late st Contact Info) Description 07/10/2025 2:00 PM EST Telemedicine [facility] MEDICINE [address] [place] [address] Name, MD Leland [address] [place], [place] [phone] 10/18/2025 2:00 PM EDT Office Visit [facility] OPTOMETRY [address] [place], [place] [phone] Memo, Hortencia, OD 230 [place], [place] [phone] documented as of this encounter Visit Diagnoses Not on filedocumented in this encounter Additional Health Concerns Assessment Noted Time PHQ-9 Depression Total Score: 0 09/14/19 24 3:10 PM EDT documented as of this encounter Care Teams Nursing Scheduler Relationship Specialty Start Date End Date Name, MD Leland [address] [place], [place] [phone] PCP - General Family Medicine 08/26/15 documented as of this encounter
--- OUTSIDE RECORDS SUMMARY | 2025-05-03 14:39 | XMS_ITS | Clinical Summary ---
Author Organization [facility] Address [address] [place] [address] Care Team Providers Care Tugboat Captain Name Role Phone No, Pcp Primary Care [...] of Health Annual Screening 06/13/2024 Influenza Vaccine (#1) 2025 , 04/10/2020, 05/17/2019, Additional history exists COVID-19 Vaccine ( season) 2025 06/18/2021, 10/30/2020, 10/02/2020 DTaP,Tdap,and Td Vaccines (2 - Td or Tdap) 03/20/2028 03/20/2018, 07/09/1998 RSV Vaccine (60+ years old and patients) (1 - 1-dose 75+ series) 2038 Zoster Vaccines Completed 08/26/2020, 06/25/2020 Hepatitis B Vaccines Aged Out No long er eligible based on patient's age to complete this topic Insurance [facility] Care Teams Tugboat Captain Relationship Specialty Start Date End Date No, Pcp HIREN PCP - General 01/29/22
--- OUTSIDE RECORDS SUMMARY | 2025-05-03 14:39 | XMS_ITS | Encounter Summary ---
Author Organization [id number] Address [address] [facility] 7t [place] [address] Care Team Providers Care Fan Blade Truer Name Role Phone Name, Leland MIMS Primary Care Provider [phone] Reason for Visit * Reason Onset Date Comments Hospital Follow-up 04/19/2025 Encounter Details Date Type Department Care Team ([facility] st Contact Info) Description 04/19/2025 Telephone [facility] MEDICINE [address] [place] [address] Name, MD Leland [address] [place], [place] [phone] Hospital Follow-up Social History Tobacco Use Types [...] encounter Miscellaneous Notes * Telephone Encounter - Juan José Camarillo - 04/19/2025 4:03 PM EST Tc from pt requesting a HDF appt. Hospital: [facility] Date of admission: 04/16 Discharge date: 04/19 Diagnosed: blood clot in leg *Send message to [facility] Coordinators Contact pt at [phone] (panamanian) documented in this encounter Plan of Treatment Upcoming Encounters Date Type Department Care Team ([facility] st Contact Info) Description 07/10/2025 2:00 PM EST Telemedicine [facility] MEDICINE [address] [place] [address] Name, MD L[place] [address] [place] [address] 10/18/2025 2:00 PM EDT Office Visit [facility] [address] [place] [address] Hortencia Hampton, OD [address] [place] [address] documented as of this encounter Visit Diagnoses Not on filedocumented in this encounter Additional Health Concerns Assessment Noted Time PHQ-9 Depression Total Score: 15 025 3:41 PM EDT documented as of this encounter Care Teams Fan Blade Truer Relationship Specialty Start Date End Date Name, MD L[place] [address] [place] [address] PCP - General Family Medicine 08/26/15 documented as of this encounter
--- OUTSIDE RECORDS SUMMARY | 2025-05-03 14:39 | XMS_ITS | Encounter Summary ---
Author Organization [employer] Address 75 [facility] 7t [place] [address] Care Team Providers Care Training Consultant Name Role Phone Name, Leland MIMS Primary Care Provider [phone] Encounter Details Date Type Department Care Team (Latest Contact Info) Description 04/30/2025 Travel Social History Tobacco Use Types Packs/Day [...] Telemedicine [facility] MEDICINE [address] [place] [address] Name, MD Leland [address] [place] [address] 10/18/2025 2:00 PM EDT Office Visit [facility] OPT[facility] [address] [place] [address] Memo, Hortencia, OD [address] [place] [address] documented as of this encounter Visit Diagnoses Not on filedocumented in this encounter Additional Health Concerns Assessment Noted Time PHQ-9 Depression Total Score: 15 025 3:41 PM EDT documented as of this encounter Care Teams Training Consultant Relationship Specialty Start Date End Date Name, MD Leland [address] [place] [address] PCP - General Family Medicine 08/26/15 documented as of this encounter
--- OUTSIDE RECORDS SUMMARY | 2025-05-03 14:39 | XMS_ITS | Encounter Summary ---
Author Organization [employer] Address 75 [facility] 7t [place] [address] Care Team Providers Care Customer Service Consultant Name Role Phone Name, Leland MIMS Primary Care Provider [phone] Reason for Visit * Reason Onset Date Comments Referral 07/20/2022 Encounter Details Date Type Department Care Team ([facility] st Contact Info) Description 07/20/[address] [facility] MEDICINE [address] [place], [place] [phone] Name, MD L[place] [address] [place] [address] Referral Social History Tobacco Use Types Packs/Day [...] - 07/20/2022 10:13 AM EST Marva calling [facility] for new or existing referrals for [facility], [address], [place] [address], Phone #: [phone], Reason for referral is Chronic Severe pain left foot. Marva advised pt has an X-ray done and patient does have the symptom of Chronic pain. Advised Marva with [facility] will forward to team nurse for new referral and flight control specialist for existing referral. Please call Marva at [phone] documented in this encounter Plan of Treatment Upcoming Encounters Date Type Department Care Team (Late st Contact Info) Description 07/10/2025 2:00 PM EST Telemedicine [facility] MEDICINE [address] [place] [address] Name, MD L[place] [address] [place] [address] 10/18/2025 2:00 PM EDT Office Visit [facility] OPTOMETRY [address] [place] [address] Memo, Hortencia, OD [address] [place] [address] documented as of this encounter Visit Diagnoses Not on filedocumented in this encounter Care Teams Customer Service Consultant Relationship Specialty Start Date End Date Name, MD L[place] [address] [place] [address] PCP - General Family Medicine 08/26/15 documented as of this encounter
--- OUTSIDE RECORDS SUMMARY | 2025-05-03 14:39 | XMS_ITS | Encounter Summary ---
Author Organization [employer] Address [address] [facility] 7t [place] [address] Care Team Providers Care Olive Picker Name Role Phone Name, Leland MIMS Primary Care Provider Reason for Visit * Reason Comments Med Refill Encounter Details Date Type Department Care Team ([facility] st Contact Info) Description 04/30/2025 Refill [facility] MEDICINE [address] [place], [place] [phone] Name, MD L[place] [address] [place], [place] [phone] Insomnia, unspecified type Social History Tobacco Use [...] 07/10/2025 2:00 PM EST Telemedicine [facility] MEDICINE [address] [place] [phone] NameLeland MD [address] [place] [address] 10/18/2025 2:00 PM EDT Office Visit [facility] OPTOMETRY [address] [place], [place] [phone] Memo, Hortencia, OD [address] [place] [address] documented as of this encounter Visit Diagnoses Diagnosis Insomnia, unspecified type documented in this encounter Additional Health Concerns Assessment Noted Time PHQ-9 Depression Total Score: 15 025 3:41 PM EDT documented as of this encounter Care Teams Olive Picker Relationship Specialty Start Date End Date NameLeland MD [address] [place] [address] PCP - General Family Medicine 08/26/15 documented as of this encounter
--- OUTSIDE RECORDS SUMMARY | 2025-05-03 14:39 | XMS_ITS | Encounter Summary ---
Author Organization [facility] Address [address] [place] [address] Care Team Providers Care Rigger Third Name Role Phone Name, Leland MIMS Primary Care Provider [phone] Encounter Details Date Type Department Care Team (Late st Contact Info) Description 04/06/2025 Results Follow-Up [facility] Emergency [address] [place] [address] Ly Alonzo RN Social History Tobacco Use Types Packs/Day Years Used Date Smoking Tobacco: Unknown Sex and Gender Information Value Date Recorded Sex Assigned at Not on file Legal Sex Male 11:37 PM EST Gender Identity Not on file Sexual Orientation Not on file documented as of this encounter Progress Notes * Ly Alonzo RN - 04/06/2025 12:37 PM EDT Copy of labs as well as visit faxed to pcp Dr Ha Name documented in this encounter Plan of Treatment Not on file documented as of this encounter Visit Diagnoses Not on filedocumented in this encounter Care Teams Rigger Third Relationship Specialty Start Date End Date Name, MD Leland [address] [place], [place] PCP - General 01/06/15 documented as of this encounter
--- OUTSIDE RECORDS SUMMARY | 2025-05-03 14:39 | XMS_ITS | Data Portability ---
Author Organization [facility] Attention Point [facility] Medical [facility] Address [address] [place] [phone] Care Team Providers Care Senior Java Engineer Name Role Phone Unavailable Referring Provider HIM CCA OTHER Assessment No assessment recorded. Plan of Treatment Reminders Order Date Submit Date Provider Last Modified By Organization Details Last Modified Time Details Appointments None recorded. Lab glucose, fingerstick , blood 2024 025 [facility], [address] [place] [address], [id number] 5 19:56:40 Referral None recorded. Procedures None recorded. Surgeries None recorded. Imaging None recorded. Medication Orders cephalexin 500 mg capsule 2023 024 [id number], [address] [place], [address], 4 20:15:29 cephalexin 500 mg capsule 2023 [...] Available Not Available No t Available omega 0-bet-ksc-fi sh oil 1,000 mg (120 mg-180 mg) [...] rate Body weight Body temperature Oxygen saturation Systolic And Diastolic Provider Name and Address Organization Details Last Updated DateTime 4 86 /min 18 /min 749228. 72 g 98.6 [degF] 98 % 154/94 mm[Hg] Not Available [employer] 4 20:11:37 Date Recorded Oxygen saturation Heart rate Respiratory rate Body temperature Systolic And Diastolic Provider Name and Address Organization Details Last Updated DateTime 5 100 % 73 /min 18 /min 97.8 [degF] 158/102 mm[Hg] Not Available [employer] 5 15:34:41 Date Recorded Respiratory rate Oxygen saturation Body temperature Heart rate Systolic And Diastolic Provider Name and Address Organization Details Last Updated DateTime 2 20 /min 94 % 97.7 [degF] 74 /min 125/75 mm[Hg] Not Available [employer] 2 07:41:40 Social History None recorded. Functional Status None recorded. Mental Status None recorded. Family History Nothing Reported. Medical History No medical history recorded. Past Encounters Encounter ID Performer Location Encounter Start Date Encounter Closed Date Diagnosis/Indication Diagnosis SNOMED-CT Code Diagnosis ICD10 Code Diagnosis IMO Codes Diagnosis Note [id number] Lucia Khoury MD [facility] [address] [place] [phone] 12/05/2021 07:41:38 02/10/2022 10:34:04 History of deep vein thrombosis 653700062 Z86.718 56 year old male with chronic [...] primary regarding why this change was made. [id number] Arsalan Vera MD [facility] [address] [place] [phone] 06/23/2023 20:11:26 06/23/2023 22:45:58 Cellulitis of left lower limb [id number] L03.116 Reports increased redness and swelling of LLE. On enoxaparin for history of DVT. No new swelling. Pulses normal per forge utility worker. No fevers, chills, systemic symptoms. Plan for empiric treatment with cephalexin and PCP follow-up [id number] Ashely Infante MD [facility] [address] [place] [phone] 10/06/2024 15:28:53 10/06/2024 18:43:01 Chronic ulcer of skin [id number] L98.499 [id number] As noted, we were called to see this patient regarding concerns of wound Evaluation in the field was performed by my forge utility worker colleague, as noted above, I provided real-time direction and supervisio n for this visit. The evaluation revealed 59 yo man with HTN who calls for a skin ulcer. He has had a left calf ulcer since June after he had varicose vein surgery. He was seen at [facility] wound care clinic last week and told [...] Simon Member ID Guarantor Name 06/23/2023 1 [facility] - DOS PRIOR TO 2022 - DUAL ELIGIBLE (MEDICARE REPLACEMENT/ADV ANTAGE - HMO) Steven Subramanian [id number] Steven Subramanian 10/15/2024 1 [facility] - DOS ON OR AFTER 2022 - DUAL ELIGIBLE - P[employer]IT[employer] OPTIONS AND ONE CARE (MEDICARE REPLACEMENT/ADV ANTAGE - HMO) Steven Subramanian [id number] Steven Subramanian Notes Date Note Type Note [...] .................... .................... .................... .................... .................... .................... . Care Analyst Note: Patient bilateral lower extremity pain times [...] .................... . Disposition: Fulfilled Lucia Khoury MD [address] [facility],[address], [place], [phone], [employer] 12/05/2021 07:49:52 06/23/2023 text/html HPI: Chronic deep [...] .................... .................... .................... .................... .................... .................... . Care Analyst Note From Gatito Rios: Pt co itchy redness on left lower extremity that is also painful. Pt denies fever nausea vomiting diarrhea. Baseline vitals assessed. Extremity redish warm to touch . No edema. C contacted pics uploaded 5 00mg keflex given po and RX called in . Pt education on signs indicating the ER. .................... .................... .................... .................... .................... .................... .................... . Disposition: Fulfilled Arsalan Vera MD [address] [place] [address],[address], [place], [phone], [employer] 06/23/2023 21:40:40 10/06/2024 text/html HPI: Pt called with concerns about having diabetes, increased urination occurring. Pt also reports an ulcer Left lower extremity that is not healing. WIC at [facility] is closed at this time unable to see Pt. Advised will send someone to evaluate blood sugar and wound status. .................... .................... .................... .................... .................... .................... .................... . [facility] Nurse Triage Notes (Sae Mendez): Chief Complaints: Wound Care, Diabetes Related PMH: Hypertension, Anxiety Disorder, Benign Prostatic Hyperplasia (BPH), Cigarette Smoker, Deep Vein Thrombosis, Osteoarthritis PMH Reviewed at 10/05/2024 - 16:39 Allergies Reviewed at 10/05/2024 - 16:39 Comments: HPI reviewed by this RN, no further information needed to process visit -Adriel Mendez RN .................... .................... .................... .................... .................... .................... .................... . Care Analyst Note From Oj Hoffmann: Encountered patient conscious, alert and ambulatory. Patient reports he underwent a surgery to address varicose veins, which resulted in him returning to the office to have a p oint removed, leaving an approximately 2rer3ze ulcer. Patient reports it is not weeping, [...] and edema; left calf region exhibits ulcer. [facility] contacted: reports patient is currently under care of both a wound care clinic and a primary care physician which are attending his needs. [facility] strongly encourage his patient to attend his wound care appointment on 10/08/24 and to contact his primary care physician in order to schedule a sooner appointment; patient is due to see primary care on 11/16/24. [facility] additionally states that if the wound care [...] .................... .................... .................... .................... .................... .................... . [facility] Consulted: Ashely Infante .................... .................... .................... .................... .................... .................... .................... . Disposition: Fulfilled Ashely Infante MD [address] [facility],[address] [facility], [place], [phone], [employer], [employer] 10/06/2024 17:19:28
== END 2025-05-03 14:54 | disposition home or self-care (01) ==
LOC: HO.HPS 14:20
PROVIDERS: PCP Internal Medicine Geriatric Medicine; Visit Provider Hospitalist
DX: G47.33 Obstructive sleep apnea (adult) (pediatric) (principal); G47.34 Idiopathic sleep related nonobstructive alveolar hypoventilation; R06.09 Other forms of dyspnea; J41.0 Simple chronic bronchitis; L03.116 Cellulitis of left lower limb
CPT/HCPCS: 99214; G2211

== ENCOUNTER → 2025-05-03 14:19 | Outpatient (BNVA) | payer OTHER, SELFPAY | PROVIDERS: PCP Internal Medicine Geriatric Medicine; Visit Provider Hospitalist | DX: G47.33 Obstructive sleep apnea (adult) (pediatric) (principal); G47.34 Idiopathic sleep related nonobstructive alveolar hypoventilation; R06.09 Other forms of dyspnea; J41.0 Simple chronic bronchitis; L03.116 Cellulitis of left lower limb; Z86.718 Personal history of other venous thrombosis and embolism; Z86.79 Personal history of other diseases of the circulatory system; Z99.89 Dependence on other enabling machines and devices; Z87.891 Personal history of nicotine dependence | CPT/HCPCS: 99212 ==

== ENCOUNTER → 2025-05-21 13:00 | Outpatient (BNV) | payer OTHER, SELFPAY | PROVIDERS: PCP Internal Medicine Geriatric Medicine; Visit Provider Psychiatry & Neurology Neurology | DX: G56.02 Carpal tunnel syndrome, left upper limb (principal) | CPT/HCPCS: 95886; 95910 ==

== ENCOUNTER 2025-05-21 13:18 | Outpatient (REF) | payer OTHER, SELFPAY ==
--- NOTE | 2025-05-21 13:00 | EMG_ITS ---
Chief complaint: pain and numbness of left hand Referred by: Camryn Hester MD Procedure done: NCS and EMG of left upper extremity Left median and ulnar motor studies were performed. Left median and ulnar mixed sensory studies, median and lateral antecubital brachial sensory studies and left radial sensory study was performed. Needle examination was performed. Findings: Median motor distal latencies was moderately prolonged. Median mixed distal latencies was also moderately prolonged with significant reduction of amplitude and moderately slow conduction velocity. Impression: Moderate left median neuropathy across carpal tunnel [place] [id number] [facility]
== END 2025-05-21 13:19 | disposition home or self-care (01) ==
LOC: HO.NEURO 13:18
PROVIDERS: PCP Internal Medicine Geriatric Medicine; Visit Provider Internal Medicine
DX: G56.03 Carpal tunnel syndrome, bilateral upper limbs (principal); R20.0 Anesthesia of skin; M79.642 Pain in left hand
CPT/HCPCS: 95886; 95910

== ENCOUNTER 2025-06-10 10:02 | Outpatient (AMB) | payer OTHER, SELFPAY ==
--- OUTSIDE RECORDS SUMMARY | 2024-03-05 08:30 | XMS_ITS ---
Author Organization [facility] Address [address] [place] [address] Care Team Providers Care Six Sigma Black Belt Engineer Name Role Phone Name Leland MIMS Primary Care Provider Unavailabl Alex Soloriomie Unavailable [phone] Nalini Dyer Unavailable [phone] Encounters Encounter Location Date Provider Diagnosis [address] [address] 03/05/2024 Nalini Dyer Plan Of Treatment Next Appt Details Provider Name:Nalini addison, 07/08/2025 01:30:00 PM, [address] [place] [address], [phone], Progress Notes * Jaren MCLAUGHLINsDOB: 3 (60 yo M)Acc No.[id number]:03/05/2024 Progress Note Patient: Kedar SALEEMsus Provider: Elmer Dyer DPM :1965 A ge:58 Y S ex:Male Date:03/05/2024 Address:[address] [place], [place] [id number] Pcp:Leland Brandon MD Subjective: * Chief Complaints: [...] 03/05/2024 Generated for Luisa john/Alexandrea/Clayton on: 1 11:13 AM EST
--- OUTSIDE RECORDS SUMMARY | 2024-08-02 09:45 | XMS_ITS ---
Author Organization [facility] Address [address] [place] [address] Care Team Providers Care Biology Teacher Name Role Phone Name Leland MIMS Primary Care Provider Unavailabl Alex Soloriomie Unavailable [phone] Nalini Dyer Unavailable [phone] Encounters Encounter Location Date Provider Diagnosis [address] [address] 08/02/2024 Nalini Dyer Plan Of Treatment Next Appt Details Provider Name:Nalini addison, 07/08/2025 01:30:00 PM, [address] [place] [address], [phone], Progress Notes * Jaren MCLAUGHLINsDOB: 3 (60 yo M)Acc No.[id number]:08/02/2024 Progress Note Patient: Kedar SALEEMsus Provider: Elmer Dyer DPM :1965 A ge:59 Y S ex:Male Date:08/02/2024 Address:[address] [place], [place] [phone] Pcp:Leland Brandon MD Subjective: * Chief Complaints: [...] Dyer, KEKE Date: 0 08/02/2024 Generated for Luisa john/Alexandrea/Clayton on: 1 11:14 AM EST
--- NOTE | 2025-06-10 10:05 | A.OFFVIS_ITS ---
Vital Signs 06/10/25 10:10 Height 6 ft Weight 270 lb BMI 36.6 BP 133/66 Blood Pressure Location Rt brachial Position Sitting Respiration 16 Pulse 91 Pulse Source Pulse Oximeter Pulse Oximetry (%) 92 Oxygen Delivery Method Room Air Intake Visit Reasons: MRI RESULTS Maintenance Worker Municipal Required: Yes Maintenance Worker Municipal Language: Manager Shop Services: Maintenance Worker Municipal Present Maintenance Worker Municipal Name: Ryan Martin [id number] Information Interpreted: non-clinical & clinical Accompanied by: Self / Same As Patient Allergies No Known Allergies Allergy (Verified 06/10/25 10:11) HPI Comments Details: The patient is a 60 year old male presenting for a follow-up visit for severe left hip pain and to review MRI results. He reports his left hip pain is 10/10 in severity, localized to the hip with radiation to the groin. The pain is exacerbated by walking and getting out of a car or bed, and he is unable to sleep on his left side. His pain has worsened significantly over the last two months, leading to a progression from using a cane to requiring a walker for ambulation. A recent MRI of the left hip revealed severe osteoarthritis with marked reactive subchondral bone edema and sclerosis as noted below. The patient also has a history of chronic back pain but reports left hip pain has been more significant lately and limits his walking and daily functioning. Approximately three months ago, the patient was diagnosed with a blood clot in his left leg at the [facility] and was treated with Lovenox injections and Xarelto. He is currently taking methadone for history of opioid addiction but states it is no longer effective. He denies a history of diabetes. Pain Description - Location: The patient reports pain in the left hip that radiates to the groin. - Severity: He rates the pain as 10/10. - Quality: He describes the pain as incredibly severe, aching, sharp and throbbing. - Exacerbating factors: Pain is worsened by walking and getting out of a car or bed. - Impact on function: He is unable to sleep on his left side, has limited and painful range of motion, and now requires a walker for ambulation. Pain Management - Analgesia: The patient reports his current pain level is 10/10. - He is currently prescribed methadone but states it is no longer effective. - He previously took oxycodone in April while hospitalized. - Activities of Daily Living: The patient's pain significantly impacts his daily function. - He reports an inability to sleep on his left side. - His ambulation has worsened from using a cane to requiring a walker over the past two months. Past Procedures: 03/07/25: Left therapeutic GTB and left SIJ steroid injections-0% pain relief 12/27/24: Bilateral L4-L5 TFESI-60% pain relief PFSH Medical History Benign essential tremor COPD (chronic obstructive pulmonary disease) Dyspnea Nocturnal hypoxia Hyperlipidemia History of recurrent deep vein thrombosis (DVT) Chronic back pain Methadone maintenance therapy patient REAGAN (obstructive sleep apnea) Personal history of nicotine dependence Thrombosed external hemorrhoid Morbid obesity Hypertension Chronic pulmonary embolism Current use of anticoagulant therapy Surgical History Hx of colonoscopy History of excision of mass Family History Father History of prostate cancer Social History Household Members: Friend(s) Alcohol intake: former Year quit: 2023 Patient Tobacco Use Status: Former Tobacco user Tobacco use type: Cigarette Years Smoked: onset 14, 1/2-1ppd x 42yrs, 30pyh Current occupational status: disabled Review of Systems Narrative - Musculoskeletal: Reports severe 10/10 left hip pain that radiates to the groin. - Reports chronic back pain. Denies numbness, tingling, bladder or bowel dysfunction or saddle anesthesia. - Cardiovascular: Reports a history of a blood clot in the left leg three months ago, treated with injections and Xarelto. Const All systems reviewed & are unremarkable except as noted in HPI and below Physical Exam Exam Exam: Vital Signs: Last Vital Signs Pulse 91 06/10/25 10:10 Resp 16 06/10/25 10:10 BP 133/66 06/10/25 10:10 Pulse Ox 92 06/10/25 10:10 Oxygen Delivery Method Room Air 06/10/25 10:10 BMI result Body Mass Index 36.6 General: Appears afebrile. Alert and oriented. Mood and affect appropriate. Follows and participates in conversation appropriately. Respiratory effort is unlabored. No cough. Able to transition from sit to stand with assistance. Uses walker with ambulation. Ambulates with antalgic gait with limping. General: Yes no CVA tenderness Back/Spine/Pelvis Other: Limited lumbar ROM due to pain. Lumbar flexion, bending and extension reproduce mild to moderate pain. Positive facet loading bilaterally. Moderate to severe left groin pain with I/E left hip rotations. Positive FADIR. Mild TTP to left GTB. Strength 5/5 right and 4/5 left hip flexion due to pain. TTP over midline and paraspinals L3-S1. DTR intact, diminished bilaterally. Valsalva maneuvr is negative. Back: no CVA tenderness Cervical Spine: loss of normal cervical lordosis, cervical muscular tenderness, pain with cervical ROM and No Cervical spine tenderness Thoracic/Lumbar Spine: thoracic and lumbar spine normal to inspection, No Thoracic/lumbar spine scar(s), Lasegue's sign negative, straight leg raise negative bilaterally, pain with thoraco-lumbar ROM, paraspinal muscle tenderness, thoraco-lumbar ROM limited, No thoracic spinal tenderness and lumbar spinal tenderness (L3-S1) Pelvis: buttock tenderness on the left Sacroiliac joints: on the right nontender and on the left (+Judah's, +Stinchfield, +Pelvic compression) tender to palpation Extrem General: Yes capillary refill normal, Yes no clubbing, cyanosis or edema and Yes no calf tenderness Results Reviewed Results Reviewed: MR HIP WITHOUT CONTRAST UNILATERAL LEFT 04/26/25 RAYUS INDICATION: Left hip pain. TECHNIQUE: MRI of the hip was performed according to routine protocol with both small and large wgykq-sq-bvhk imaging with multiplanar fast spin echo and inversion recovery imaging. Examination is limited due to patient pain and body habitus with decreased prynsy-dc-qooum. COMPARISON: None. FINDINGS: There is advanced left hip joint osteoarthritis with diffuse vpqa-ju-bvue contact and subarticular sclerosis. There is marked reactive subchondral bone edema throughout the acetabulum and femoral head extending into the femoral neck. There is mild flattening of the superior femoral head. There is a small left hip joint effusion present. No abnormality is present at the greater trochanter or gluteus minimus or gluteus minimus tendons. Normal iliopsoas and lesser trochanter. No muscle abnormality is identified. No masses. No abnormality is present at the hip adductor tendons or pubic symphysis or pubic rami. No sacral or sacroiliac abnormality. The proximal hamstring tendon complex insertion at the ischium is intact. No pelvis mass or free fluid. There are mild degenerative changes are noted at the right hip. IMPRESSION: Severe left hip joint osteoarthritis with marked reactive subchondral bone edema and sclerosis as indicated. XR hip RAINE min 3V w/wo pel 06/18/24 CLINICAL HISTORY: PAIN Exam: AP pelvis with AP and frog-leg lateral views of both hips. Comparison: Right hip radiographs December 14, 2023. Findings: Bony alignment of the hip joints is anatomic. No acute fractures are identified. 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 No erosions. Sacroiliac joints and pubic symphysis are unremarkable. IMPRESSION: No fracture. Assessment & Plan Assessment & Plan (1) Methadone maintenance therapy patient: Comment: (hx opioid use) Code(s): F11.20 - Opioid dependence, uncomplicated Category: Medical (2) Chronic back pain: Code(s): M54.9 - Dorsalgia, unspecified; G89.29 - Other chronic pain Category: Medical (3) Chronic left hip pain: Code(s): M25.552 - Pain in left hip; G89.29 - Other chronic pain Category: Medical (4) Left groin pain: Code(s): R10.32 - Left lower quadrant pain Category: Medical (5) Greater trochanteric bursitis of left hip: Code(s): M70.62 - Trochanteric bursitis, left hip Category: Medical (6) Osteoarthritis of left hip: Code(s): M16.12 - Unilateral primary osteoarthritis, left hip Category: Medical Plan The patient's severe left hip pain is secondary to severe osteoarthritis, as confirmed by his recent MRI. He has a pending Orthopedic evaluation scheduled for June 25 to discuss surgical options. In the interim, the plan is to schedule a left hip intra-articular steroid injection with local and fluoroscopy for pain management. This procedure will be contingent on insurance approval and will be canceled if the Orthopedic surgeon decides to proceed with surgery. Expectations, risks and benefits were reviewed. Patient is aware he will be contacted to schedule this procedure. All questions and concerns have been answered and patient agreed with the treatment plan. Follow-up will occur after the injection or after the Orthopedic evaluation to determine the subsequent course of action. Patient was informed and verbally consented to the use of an ambient scribe for clinic note documentation during this visit. Coding Level of Care Code Est Pt Level 4 (99186) Add On Problem Visit Only Diagnoses Methadone maintenance therapy patient F11.20 Chronic back pain M54.9; G89.29 Chronic left hip pain M25.552; G89.29 Left groin pain R10.32 Greater trochanteric bursitis of left hip M70.62 Osteoarthritis of left hip M16.12
[2025-06-10 10:10] VITALS: BP 133/66; PULSE 91; RESP 16; O2SAT 92; BMI 36.6
--- OUTSIDE RECORDS SUMMARY | 2025-06-10 11:13 | XMS_ITS | Encounter Summary ---
Author Organization [employer] Address [address] [place] [address] Care Team Providers Care History Professor Name Role Phone Name, Leland MIMS Primary Care Provider [phone] Reason for Visit * Reason Comments Med Refill Encounter Details Date Type Department Care Team ([facility] st Contact Info) Description 02/20/2025 Refill [facility] [address] [place], [place] [phone] Name, MD Leland [address] [place], [place] [phone] Social History Tobacco Use Types Packs/Day Years [...] Care Team (Late st Contact Info) Description 06/18/2025 10:45 AM EST Office Visit [facility] [address] [place] [phone] Amber Ortiz MD [address] [place] [address] 07/10/2025 2:00 PM EST Telemedicine [facility] [address] [place] [address] Name, MD Leland [address] [place] [address] 10/18/2025 2:00 PM EDT Office Visit [facility] OPTOMETRY [address] [place] [address] Hortencia Hampton, LESLI [address] [place] [address] documented as of this encounter Visit Diagnoses Not on filedocumented in this encounter Additional Health Concerns Assessment Noted Time PHQ-9 Depression Total Score: 0 09/14/19 24 3:10 PM EDT documented as of this encounter Care Teams History Professor Relationship Specialty Start Date End Date Name, MD Leland [address] [place] [address] PCP - General Family Medicine 08/26/15 documented as of this encounter
--- OUTSIDE RECORDS SUMMARY | 2025-06-10 11:13 | XMS_ITS | Clinical Summary ---
Author Organization [facility] Address [address] [place] [address] Phone Care Team Providers Care Sanitation Associate Name Role Phone Name, Leland MIMS Primary Care Provider [phone] Allergies No known active allergies Medications DICLOFENAC [...] mouth 1 (one) time each day. Active Active Problems Problem Noted Date Diagnosed Date Chronic pain 03/15/2024 HTN (hypertension) 03/15/2024 Rotator cuff disorder 03/15/2024 Claustrophobia 03/15/2024 Encounters Date Type Department Care Team Description 04/06/2025 Results Follow-Up [facility] Emergency [address] [place] [address] Ly Alonzo RN 2025 12:27 AM EDT - 2025 3:01 AM EDT Emergency [facility] Emergency [address] [place] [address] Haim Garland MD Deep vein thrombosis (DVT) of proximal vein of left lower extremity, unspecified chronicity ([facility] V24, [facility] V28) (Primary Dx); Pain Discharge Disposition: Home or Self Care from Last 3 Months Medical History Medical History Date Comments DVT (deep venous thrombosis) ([facility] V24, [facility]/ [facility] V28) Social History Tobacco Use Types [...] Done Comments Colorectal Cancer Screening: Colonoscopy 1965 Drug Screen 1965 Non-Opioid Controlled Substance Agreement 1965 Hepatitis A Vaccines (1 of 2 [...] to mixing studies (2025 2:13 AM EDT) Pathologist [facility] APTT 41 <43 Sec(s) 04/05/2025 3:05 PM [...] Lupus anticoagulant not detected. Test performed at [facility], [address], [place] [address] Raissa Najera MD, PhD - Automotive Product Engineer Blood Venous blood specimen / Unknown Venipuncture / Unknown 2025 2:13 AM EDT 2025 2:20 AM EDT us Haim Garland MD LAB BLOOD ORDERABLES Final Resu lt [facility] [address] [place] [address] * Cardiolipin antibodies, IgG, IgM and IgA (2025 2:13 AM EDT) [facility] Cardiolipin Antibody Screen Negative Negative LAB CHEMISTRY METHOD 04/09/2025 11:02 AM EDT [facility] Blood Venous blood specimen / Unknown Venipuncture / Unknown 2025 2:13 AM EDT 2025 2:21 AM EDT us Haim Garland MD LAB BLOOD ORDERABLES Final Resu lt [facility] [address] [place] [address], [place] [phone] * (ABNORMAL) CBC auto differential (2025 1:32 AM EDT) [facility] WBC 11.4(H) 4.8 - 10.8 K/mcL LAB HEMETOLOGY METHOD 2025 2:29 AM EDT [facility] RBC 3.80(L) 4.50 - 5.50 M/mcL LAB HEMETOLOGY METHOD 2025 2:29 AM [facility] Hemoglobin 11.3(L) 13.5 - 17.5 g/dL LAB HEMETOLOGY METHOD 2025 2:29 AM [facility] Hematocrit 36.0(L) 42.0 - 54.0 % LAB HEMETOLOGY METHOD 2025 2:29 AM [facility] MCV 94.2 79.0 - 98.0 FL LAB [facility]OLOGY [facility] MCH 29.6 27.0 - 32.0 pcg LAB HEMETOLOGY METHOD 2025 2:29 AM [facility] MCHC 31.4(L) 32.0 - 37.0 g/dL LAB HEMETOLOGY [facility]25 2[facility] RDW 15.3(H) 11.0 - 15.0 % LAB HEMETOLOGY METHOD 2025 2:29 AM [facility] Platelets 241 130 - 400 K/mcL LAB HEMETOLOGY METHOD 2025 2:29 AM [facility] MPV 10.5 7.0 - 11.0 FL LAB HEMETOLOGY METHOD 2025 2:29 AM [facility] NRBC 0.0 <1.0 % LAB HEMETOLOGY METHOD 2025 2:29 AM [facility] NRBC Absolute 0.00 <0.10 K/mcL LAB HEMETOLOGY METHOD 2025 2:29 AM [facility] Neutrophils Relative 74.9 % LAB HEMETOLOGY METHOD 2025 2:29 AM [facility] Lymphocytes Relative 12.9 % LAB HEMETOLOGY METHOD 2025 2:29 AM [facility] Monocytes Relative 9.9 % LAB HEMETOLOGY METHOD 2025 2:29 AM [facility] Eosinophils Relative 1.5 % LAB HEMETOLOGY METHOD 2025 2:29 AM [facility] Basophils Relative 0.1 % LAB HEMETOLOGY METHOD 2025 2:29 AM [facility] Immature Granulocytes Relative 0.7 % LAB HEMETOLOGY METHOD 2025 2:29 AM [facility] Neutrophils Absolute 8.55(H) 1.50 - 7.00 K/mcL LAB HEMETOLOGY METHOD 2025 2:29 AM [facility] Lymphocytes Absolute 1.47 1.00 - 5.00 K/mcL LAB HEMETOLOGY METHOD 2025 2:29 AM [facility] Monocytes Absolute 1.13(H) 0.20 - 1.00 K/mcL LAB HEMETOLOGY METHOD 2025 2:29 AM EDT [facility] Eosinophils Absolute 0.17 0.00 - 0.50 K/mcL LAB HEMETOLOGY METHOD 2025 2:29 AM EDT [facility] Basophils Absolute 0.01 0.00 - 0.20 K/[facility] LAB HEMETOLOGY METHOD 2025 2:29 AM EDT [facility] Immature Granulocytes Absolute 0.08(H) 0.00 - 0.03 K/mcL LAB HEMETOLOGY METHOD 2025 2:29 AM EDT [facility] Blood Venous blood specimen / Unknown Venipuncture / Unknown 2025 1:32 AM EDT 2025 2:21 AM EDT Kristine MCKEON LAB BLOOD ORDERABLES Fin al Result Performing Organization Address City/[facility]/ZIP Co de Phone Number [facility] [address] [place] [address], [place] [phone] * APTT (2025 1:32 AM EDT) aPTT 27.8 24.1 - 39.3 sec LAB COAGULATION METHOD 2025 2:40 AM EDT [facility] Blood Venous blood specimen / Unknown Venipuncture / Unknown 2025 1:32 AM EDT 2025 2:33 AM EDT Kristine MCKEON LAB BLOOD ORDERABLES Fin al Result Performing Organization Address City/[facility]/ZIP Co de Phone Number [facility] [address] [place] [address], [place] [phone] * Protime-INR (2025 1:32 AM EDT) [facility] Protime 10.8 10.6 - 13.9 sec LAB COAGULATION METHOD 2025 2:40 AM EDT [facility] INR 0.9 LAB COAGULATION METHOD 2025 2:40 AM EDT [facility] Blood Venous blood specimen / Unknown Venipuncture / Unknown 2025 1:32 AM EDT 2025 2:33 AM EDT Kristine MCKEON LAB BLOOD ORDERABLES Fin al Result Performing Organization Address City/[facility]/ZIP Co de Phone Number [facility] [address] [place] [address], [place] [phone] * (ABNORMAL) Low molecular wgt heparin (2025 1:32 AM EDT) [facility] Heparin Anti-Xa <0.04(L) 0.30 - 0.70 I Unit/mL LAB COAGULATION METHOD 2025 2:47 AM EDT [facility] Blood Venous blood specimen / Unknown Venipuncture / Unknown 2025 1:32 AM EDT 2025 2:33 AM EDT Narrative [facility] - 2025 2:47 AM EDT Therapeutic range listed is for Unfractionated Heparin. LMW Heparin therapeutic range: 0.50-1.20 IU/mL us Haim Garland MD LAB BLOOD ORDERABLES Final Resu lt [facility] [address] [place] [address], [place] [phone] * Magnesium (2025 1:32 AM EDT) [facility] Magnesium 2.1 1.9 - 2.6 mg/dL LAB CHEMISTRY METHOD 2025 2:49 AM [facility] Blood Venous blood specimen / Unknown Venipuncture / Unknown 2025 1:32 AM EDT 2025 2:21 AM EDT us Kristine MCKEON LAB BLOOD ORDERABLES Fin al Result [facility] [address] [place] [address], * (ABNORMAL) Comprehensive Metabolic Panel (CMP) (2025 1:32 AM EDT) Sodium 139 133 - 145 mmol/L LAB CHEMISTRY METHOD 2025 3:03 AM [facility] Potassium 4.1 3.5 - 5.5 mmol/L LAB CHEMISTRY METHOD 2025 3:03 AM [facility] Chloride 104 96 - 110 mmol/L LAB CHEMISTRY METHOD 2025 3:03 AM [facility] CO2 30 21 - 32 mmol/L LAB CHEMISTRY METHOD 2025 3:03 AM [facility] Anion Gap 5 3 - 11 LAB CHEMISTRY METHOD 2025 3:03 AM [facility] Glucose 108(H) 70 - 100 mg/dL LAB CHEMISTRY METHOD 2025 3:03 AM [facility] BUN 28(H) 5 - 25 mg/dL LAB CHEMISTRY METHOD 2025 3:03 AM [facility] Creatinine 0.90 0.70 - 1.30 mg/dL LAB CHEMISTRY METHOD 2025 3:03 AM [facility] eGFR 97 >=60 mL/min/1. 73m2 LAB CHEMISTRY METHOD 2025 3:03 AM [facility] Comment:Calculation based on the Chronic Kidney Disease Epidemiology Collaboration (CKD-EPI) equation refit without adjustment for race. BUN/Creatinine Ratio 31.1 LAB CHEMISTRY METHOD 2025 3:03 AM [facility] Calcium 9.0 8.5 - 10.5 mg/dL LAB CHEMISTRY METHOD 2025 3:03 AM [facility] AST (SGOT) 13 10 - 42 unit/L LAB CHEMISTRY METHOD 2025 3:03 AM [facility] ALT (SGPT) 24 10 - 60 unit/L LAB CHEMISTRY METHOD 2025 3:03 AM [facility] Alkaline Phosphatase 160(H) 42 - 121 unit/L LAB CHEMISTRY METHOD 2025 3:03 AM [facility] Total Protein 6.0 6.0 - 8.0 g/dL LAB CHEMISTRY METHOD 2025 3:03 AM [facility] Albumin 3.3 3.2 - 5.0 g/dL LAB CHEMISTRY METHOD 2025 3:03 AM [facility] Total Bilirubin 0.1 0.0 - 1.4 mg/dL LAB CHEMISTRY METHOD 2025 3:03 AM [facility] Blood Venous blood specimen / Unknown Venipuncture / Unknown 2025 1:32 AM EDT 2025 2:21 AM EDT us Kristine MCKEON LAB BLOOD ORDERABLES Fin al Result [facility] [address] [place] [address], * Vascular US Duplex Lower Extremity Venous [...] Subscriber Plan / Payer (Ef fective 2017-Present) Name:KEDAR SUBRAMANIANSUS Relation to Subscriber:Self Name:Kedar Subramaniansus A Payer ID:[id number] Group ID:[id number] Type:Not on file Address: [facility] [address] [place] [address] Care Teams Sanitation Associate Relationship Specialty Start Date End Date Name, MD Leland [address] [place], [place] PCP - General 01/06/15
--- OUTSIDE RECORDS SUMMARY | 2025-06-10 11:13 | XMS_ITS | Encounter Summary ---
Author Organization [employer] Address [address] [place] [address] Care Team Providers Care It Solutions Architect Name Role Phone Name, Leland MIMS Primary Care Provider [phone] Reason for Visit * Reason Onset Date Comments Verbal Order 07/24/2024 Encounter Details Date Type Department Care Team ([facility] st Contact Info) Description 07/24/2024 Telephone [facility] [address] [place], [place] [phone] Name, MD Leland [address] [place] [address] Verbal Order Social History Tobacco Use Types [...] EST Telephone call returned to Katey at [facility], spoke with Katey. Gave verbal orders for VNA care. Asked when last office visit was, advised it was 07/06/24 with PCP and also pt was seen in [facility] walk in clinic on 07/14/24. Katey verbalized understanding, no further questions. * Telephone Encounter - João Bhatt - 07/24/2024 4:34 PM EST Tc from Emelia with [facility] requesting verbal orders. Please contact Emelia at [phone] Opt 2. documented in this encounter Plan of Treatment Upcoming Encounters Date Type Department Care Team (Late st Contact Info) Description 06/18/2025 10:45 AM EST Office Visit [facility] [address] [place] [address] Amber Ortiz MD [address] [place] [address] 07/10/2025 2:00 PM EST Telemedicine [facility] [address] [place] [address] Name, MD Leland [address] [place] [address] 10/18/2025 2:00 PM EDT Office Visit [facility] OPTOMETRY [address] [place], [place] [phone] Memo, Hortencia, OD [address] [place] [address] documented as of this encounter Visit Diagnoses Not on filedocumented in this encounter Additional Health Concerns Assessment Noted Time PHQ-9 Depression Total Score: 0 09/14/19 24 3:10 PM EDT documented as of this encounter Care Teams It Solutions Architect Relationship Specialty Start Date End Date Name, MD Leland [address] [place] [id number] PCP - General Family Medicine 08/26/15 documented as of this encounter
--- OUTSIDE RECORDS SUMMARY | 2025-06-10 11:13 | XMS_ITS | Patient Health Record ---
Author [facility] Address [address] [place] [address] Care Team Providers Care Brass Reclaimer Name Role Phone Name Leland MIMS Primary Care Provider Unavailyves e Alex Smithmie Unavailable [phone] Nalini Dyer Unavailable [phone] Allergies No Known Allergies Reason For Referral No Information Medications Medication SIG (Take, Route, Frequency, Duration) Notes Start Date End Date Status Ammonium Lactate 12 % 1 application Exte rnally Twice a day; Duration: 30 days Not-Taking Custom Orthotics as directed 11/03/2021 Not-Taking Ciclopirox 0.77 % 1 application Language Pathologist ally Twice a day; Duration: 30 days 07/15/2022 Not-Taking Pradaxa 150 MG 1 capsule Orally Twi ce a day Not-Taking Acetaminophen 500 MG 1 tablet as needed Orally every 6 hrs; Duration: 14 days 01/28/2023 Not-Taking Naproxen 500 MG 1 tablet Orally WITH FOOD Twice a day; Duration: 14 days 01/28/2023 Not-Taking Piroxicam 20 MG TAKE 1 CAPSULE BY [facility] EVERY DAY WITH FOOD [...] W/U Status Risk Notes Problem Plantar wart (10087133) Plantar wart (B07.0) Active confirmed Problem Acquired hammer toe of left foot (8201068348903946 ) Other hammer toe(s) (acquired), left foot (M20.42) Active confirmed Problem Acquired hammer toe of right foot (9001688766101836 ) Hammer toe of right foot (M20.41) Active confirmed Problem Neuropathy (337456149) Neuropathy (G62.9) Active confirmed Problem Localized, primary osteoarthritis of the ankle and/or foot (188972350) Osteoarthritis of right ankle and foot (M19.071) Active confirmed Problem PlantarFlexion o f metatarsal of left foot (M21.6X2) Active confirmed Problem Gouty arthritis of left foot (8876991917583805 ) Gouty arthritis of left foot (M10.9) Active confirmed Vital Signs Blood pressure diastolic 80 mm Hg 04/22/2025 Height 6ft in 04/22/2025 Blood pressure systolic 129 mm Hg 04/22/2025 Weight 288 lbs 04/22/2025 BMI 39.06 kg/m2 04/22/2025 Encounters Encounter Location Date Provider Diagnosis [address] [address] 09/06/2024 Nalini Perica Pain in right toe(s) M79.674 ; Onychomycosis B35.1 ; Pain in left toe(s) M79.675 ; Plantar wart B07.0 and Left foot pain M79.[address] [address] 11/15/2024 Nalini Perica Pain in right toe(s) M79.674 ; Onychomycosis B35.1 ; Pain in left toe(s) M79.675 ; Plantar wart B07.0 and Left foot pain M79.672 [facility] [address] [address] 02/14/2025 Nalini Perica Pain in right toe(s) M79.674 ; Onychomycosis B35.1 and Pain in left toe(s) M79.[address] [address] 04/22/2025 Nalini Perica Pain in right toe(s) [...] - M79.675) 09/06/2024 Onychomycosis (ICD-10 - B35.1) 09/06/2024 Plantar wart (ICD-10 - B07.0) 11/15/2024 Pain in left toe(s) (ICD-10 - M79.675) 04/22/2025 Pain in left toe(s) (ICD-10 - M79.675) 11/15/2024 Plantar wart (ICD-10 - B07.0) 09/06/2024 Left foot pain (ICD-10 - M79.672) 11/15/2024 Left foot pain (ICD-10 - M79.672) Plan Of Treatment Pending Test Test Name Order Date *Uric Acid, Serum 05/20/2022 *CBC With Differential/Platelet 05/20/20 ESR 05/20/2022 X ray : Foot, left 3V 05/20/2022 X ray : Foot, left 3V 09/13/2023 X ray : Foot, left 3V 09/29/2023 X ray : Foot, right 3V 01/27/2023 [id number] NAIL, 6 OR MORE 11/03/2021 [id number] NAIL, 6 OR MORE 01/19/2022 23895, J0702- INJECT TENDON ORIGIN/INSER T 01/27/2023, [id number]/INJECT, JOINT/BURSA 0 07/02/2022 X ray : Ankle, right 3V 01/27/2023 Next Appt Details Provider Name:Nalini addison, 07/08/2025 01:30:00 PM, [address] [place] [address], [place], [address], Insurance Providers Payer Name Payer Address Payer Phone Subscriber Number Group Number Insured Name Patient Relationship to Insured Coverage Start Date Coverage End Date [facility] [employer] Claims [address] [place] [id number] Steven Subramanian Self - patient is the insured Medical (General) History Medical History History ICD Code Arthritis Depression Psoriasis/eczema Surgical History Surgery Date(Month/Year) ear tubes Hospitalization History Reason Date(Month/Year) blood clot 09/04 [facility] leg issue, cyst [facility]- blood clot 07/2021
--- OUTSIDE RECORDS SUMMARY | 2025-06-10 11:13 | XMS_ITS | Encounter Summary ---
Author Organization [employer] Address [address] [facility] [address] [place] [address] Care Team Providers Care Dry Plasterer Name Role Phone Name, Leland MIMS Primary Care Provider [phone] Reason for Visit * Reason Comments Med Refill Encounter Details Date Type Department Care Team (Late st Contact Info) Description 07/25/2024 Refill [facility] [address] [place], [place] [phone] Stacey Wade MD [address] [place], [place] [phone] Lumbago with sciatica, right side Social History [...] Description 06/18/2025 10:45 AM EST Office Visit [facility] [address] [place] [address] Amber Ortiz MD [address] [place] [address] 07/10/2025 2:00 PM EST Telemedicine [facility] [address] [place] [address] Name, MD Leland [address] [place] [address] 10/18/2025 2:00 PM EDT Office Visit [facility] [address] [place], [place] [phone] Hortencia Hampton, OD [address] [place] [address] documented as of this encounter Visit Diagnoses Diagnosis Lumbago with sciatica, right side documented in this encounter Additional Health Concerns Assessment Noted Time PHQ-9 Depression Total Score: 0 09/14/19 24 3:10 PM EDT documented as of this encounter Care Teams Dry Plasterer Relationship Specialty Start Date End Date Name, MD Leland [address] [place] [address] PCP - General Family Medicine 08/26/15 documented as of this encounter
--- OUTSIDE RECORDS SUMMARY | 2025-06-10 11:13 | XMS_ITS | Encounter Summary ---
Author Organization [employer] Address [address] [facility] 7t [place] [address] Care Team Providers Care Taxicab Starter Name Role Phone Name, Leland MIMS Primary Care Provider Reason for Visit * Reason Comments Med Refill Encounter Details Date Type Department Care Team ([facility] st Contact Info) Description 01/28/2025 Refill [facility] [address] [place], [place] [phone] Sonia Treviño, ANP [address] [place], [place] [phone] Insomnia, unspecified type Social History Tobacco Use [...] Description 06/18/2025 10:45 AM EST Office Visit [facility] [address] [place] [address] Amber Ortiz MD 230 [place] [address] 07/10/2025 2:00 PM EST Telemedicine [facility] [address] [place] [address] Name, MD Leland [address] [place] [address] 10/18/2025 2:00 PM EDT Office Visit [facility] [address] [place] [address] [phone] Hortencia Hampton, OD 230 [place] [address] documented as of this encounter Visit Diagnoses Diagnosis Insomnia, unspecified type documented in this encounter Additional Health Concerns Assessment Noted Time PHQ-9 Depression Total Score: 0 09/14/19 24 3:10 PM EDT documented as of this encounter Care Teams Taxicab Starter Relationship Specialty Start Date End Date Name, MD Leland [address] [place] [address] PCP - General Family Medicine 08/26/15 documented as of this encounter
--- OUTSIDE RECORDS SUMMARY | 2025-06-10 11:13 | XMS_ITS | Encounter Summary ---
Author Organization [employer] Address [address] [facility] 7t [place] [address] Care Team Providers Care Cylindrical Mixer Name Role Phone Name, Leland MIMS Primary Care Provider [phone] Reason for Visit * Reason Onset Date Comments Nurse Triage 08/06/2024 Encounter Details Date Type Department Care Team ([facility] st Contact Info) Description 08/06/2024 Telephone [facility] [address] [place], [place] [phone] Name, MD Leland 230 [place] [address] Nurse Triage Social History Tobacco Use Types [...] 08/06/2024 3:03 PM EST Triage call with [facility] medical interpreter [place] [id number] Pt is called several times and call [...] Description 06/18/2025 10:45 AM EST Office Visit [facility] [address] [place] [address] Amber Ortiz MD 230 [place] [address] 07/10/2025 2:00 PM EST Telemedicine [facility] [address] [place] [address] Leland Brandon MD [address] [place] [address] 10/18/2025 2:00 PM EDT Office Visit [facility] [address] [place] [address] Memo, Hortencia, OD 230 [place] [address] documented as of this encounter Visit Diagnoses Diagnosis Osteoarthritis of right ankle and foot Swelling of lower limb documented in this encounter Additional Health Concerns Assessment Noted Time PHQ-9 Depression Total Score: 0 09/14/19 24 3:10 PM EDT documented as of this encounter Care Teams Cylindrical Mixer Relationship Specialty Start Date End Date Leland Brandon MD [address] [place] [address] PCP - General Family Medicine 08/26/15 documented as of this encounter
--- OUTSIDE RECORDS SUMMARY | 2025-06-10 11:13 | XMS_ITS | Encounter Summary ---
Author Organization [employer] Address [address] [facility] 7t [place] [address] Care Team Providers Care Plumber Gasfitter Name Role Phone Name, Leland MIMS Primary Care Provider [phone] Reason for Visit * Reason Onset Date Comments Call Back Request 08/30/2024 Encounter Details Date Type Department Care Team ([facility] st Contact Info) Description 08/30/2024 Telephone [facility] 230 [place] [address] Name, MD Leland 230 [place] [address] Call Back Request Social History Tobacco Use [...] walks with no problem due to procedure. Marshallese speaker documented in this encounter Plan of Treatment Upcoming Encounters Date Type Department Care Team (Late st Contact Info) Description 06/18/2025 10:45 AM EST Office Visit [facility] [address] [place] [address] Amber Ortiz MD [address] [place] [address] 07/10/2025 2:00 PM EST Telemedicine [facility] [address] [place] [address] [phone] Name, MD Leland [address] [place] [address] 10/18/2025 2:00 PM EDT Office Visit [facility] [address] [place] [address] Hortencia Hampton, OD 230 [place] [address] documented as of this encounter Visit Diagnoses Not on filedocumented in this encounter Additional Health Concerns Assessment Noted Time PHQ-9 Depression Total Score: 0 09/14/19 24 3:10 PM EDT documented as of this encounter Care Teams Plumber Gasfitter Relationship Specialty Start Date End Date Name, MD Leland 230 [place] [address] PCP - General Family Medicine 08/26/15 documented as of this encounter
--- OUTSIDE RECORDS SUMMARY | 2025-06-10 11:14 | XMS_ITS | Encounter Summary ---
Author Organization [employer] Address [address] [facility] 7t [place] [address] Care Team Providers Care Nursery Technician Name Role Phone Name, Leland MIMS Primary Care Provider [phone] Reason for Visit * Reason Onset Date Comments Hospital Follow-up 04/19/2025 Encounter Details Date Type Department Care Team ([facility] st Contact Info) Description 04/19/2025 Telephone [facility] 230 [place] [address] Name, MD Leland 230 [place], [place] [phone] Hospital Follow-up Social History Tobacco Use Types [...] from pt requesting a HDF appt. [facility]: [facility] Date of admission: 04/16 Discharge date: 04/19 Diagnosed: blood clot in leg *Send message to [place] [facility] Coordinators Contact pt at [phone] (danish) documented in this encounter Plan of Treatment Upcoming Encounters Date Type Department Care Team ([facility] st Contact Info) Description 06/18/2025 10:45 AM EST Office Visit [facility] [address] [place] [address] Amber Ortiz MD [address] [place] [address] 07/10/2025 2:00 PM EST Telemedicine [address] [address] Name, MD Leland 230 [place] [address] 10/18/2025 2:00 PM EDT Office Visit [facility] [address] [place], [place] [phone] Hortencia Hampton, OD 230 [place], [place] [phone] documented as of this encounter Visit Diagnoses Not on filedocumented in this encounter Additional Health Concerns Assessment Noted Time PHQ-9 Depression Total Score: 15 025 3:41 PM EDT documented as of this encounter Care Teams Nursery Technician Relationship Specialty Start Date End Date Name, MD Leland 230 [place] [address] PCP - General Family Medicine 08/26/15 documented as of this encounter
--- OUTSIDE RECORDS SUMMARY | 2025-06-10 11:14 | XMS_ITS | Encounter Summary ---
Author Organization [employer] Address [address] [facility] 7t [place] [address] Care Team Providers Care Paper Spooler Name Role Phone Name, Leland MIMS Primary Care Provider [phone] Reason for Visit * Reason Onset Date Comments Nurse Triage 06/04/2025 Encounter Details Date Type Department Care Team ([facility] st Contact Info) Description 06/04/2025 Telephone [facility] 230 [place], [place] [phone] Name, MD Leland [address] [place] [address] Nurse Triage Social History Tobacco Use Types [...] encounter Miscellaneous Notes * Telephone Encounter - Yariel Bhatt - 06/04/2025 2:28 PM EST Tc from pt requesting a HDF appt. Hospital: [facility] Date of admission: 05/30 Discharge date: 06/01 Diagnosed: hip pain/blood clot in leg Please contact at [phone] Georgian speak documented in this encounter Plan of Treatment Upcoming Encounters Date Type Department Care Team (Late st Contact Info) Description 06/18/2025 10:45 AM EST Office Visit [facility] [address] [place] [address] Amber Ortiz MD [address] [place] [address] 07/10/2025 2:00 PM EST Telemedicine [address] [address] Name, MD Leland [address] [place] [address] 10/18/2025 2:00 PM EDT Office Visit [facility] [address] [place], [place] [phone] Hortencia Hampton, OD 230 [place] [address] documented as of this encounter Visit Diagnoses Not on filedocumented in this encounter Additional Health Concerns Assessment Noted Time PHQ-9 Depression Total Score: 15 025 3:41 PM EDT documented as of this encounter Care Teams Paper Spooler Relationship Specialty Start Date End Date Name, MD Leland [address] [place] [address] PCP - General Family Medicine 08/26/15 documented as of this encounter
--- OUTSIDE RECORDS SUMMARY | 2025-06-10 11:14 | XMS_ITS | Encounter Summary ---
Author Organization [employer] Address [address] [facility] 7t [place] [address] Care Team Providers Care Ski Instructor Name Role Phone Name, Leland MIMS Primary Care Provider [phone] Reason for Visit * Reason Comments Med Refill Encounter Details Date Type Department Care Team (Late Contact Info) Description 02/21/2023 Refill [facility] [address] [place] [address] [phone] Name, MD Leland [address] [place] [phone] Insomnia, unspecified type Social History Tobacco Use [...] Department Care Team (Late Contact Info) Description 06/18/2025 10:45 AM EST Office Visit [facility] MED[facility] [address] [place] [address] [phone] Amber Ortiz MD 230 [place], [place] [phone] 07/10/2025 2:00 PM EST Telemedicine [facility] 230 [place], [place] [phone] Name, MD Leland [address] [place], [place] [phone] 10/18/2025 2:00 PM EDT Office Visit [facility] OPT[facility] [address] [place], [place] [phone] Memo, Hortencia, OD 230 [place], [place] [phone] documented as of this encounter Visit Diagnoses Diagnosis Insomnia, unspecified type documented in this encounter Additional Health Concerns Assessment Noted Time PHQ-9 Depression Total Score: 0 09/07/19 23 1:16 PM EDT documented as of this encounter Care Teams Ski Instructor Relationship Specialty Start Date End Date Name, MD Leland [address] [place] [address] [phone] PCP - General Family Medicine 08/26/15 documented as of this encounter
--- OUTSIDE RECORDS SUMMARY | 2025-06-10 11:14 | XMS_ITS | Clinical Summary ---
Author Organization [employer] Address [address] [facility] 7t [place] [address] Care Team Providers Care Pneumatic Drum Sander Name Role Phone Name, Leland MIMS Primary Care Provider [phone] Allergies No known active allergies Medications * [...] Device Once per day. 1 kit Active propranolol (Inderal) 80 MG tablet Take [...] mouth 2 times daily. 56 tablet 1 Active guaiFENesin (Mucinex) 600 MG 12 hr tabletIndicatio ns:Complaint of nasal congestion Take 2 tablets (1,200 mg) by mouth 2 times daily. Do not crush, chew, or split. 120 tablet 11 025 2025 Active Enoxaparin Sodium 150 MG/ML solution prefilled syringe Before injecting, remove 0.1 ml from the syringe, then inject the contents of 1 syringe under the skin every 12 hours Active dexAMETHasone (Decadron) 4 MG tablet Take 1 tablet (4 mg) by mouth with breakfast. 3 tablet 5 2:58 PM EST Active Diclofenac Sodium 1 % gelIndications: Chronic midline low back pain with sciatica, sciatica laterality unspecified APPLY 2 GRAMS TO AFFECTED AREA(S) TWICE DAILY 100 g 5 2:17 PM EST 025 Active gabapentin (Neurontin) 800 MG tabletIndicatio ns:Chronic pain syndrome TAKE 1 TABLET BY MOUTH THREE TIMES DAILY 90 tablet 3 Active memantine (Namenda) 10 MG tablet Take 1 tablet (10 mg) by mouth 2 times daily. 60 tablet 11 5 4:47 PM EST 025 2025 Active zolpidem (Ambien) 10 MG tabletIndicatio ns:Insomnia, unspecified type Take 1 tablet (10 mg) by mouth if needed at bedtime for sleep. 28 tablet 5 4:47 PM EST Active gabapentin (Neurontin) 800 MG tabletIndicatio ns:Chronic pain syndrome TAKE 1 TABLET BY MOUTH THREE TIMES DAILY 90 tablet 3 5 5:17 PM EST 025 2024 Discontinued Diclofenac Sodium 1 % gelIndications: Chronic midline low back pain with sciatica, sciatica laterality unspecified APPLY 2 GRAMS TO AFFECTED AREA(S) TWICE DAILY 100 g 025 2024 Discontinued memantine (Namenda) 5 MG tablet Take 1 tablet (5 mg) by mouth 2 times daily. 60 tablet 2 5 2:17 PM EST 025 2024 Discontinued(D ose adjustment) zolpidem (Ambien) 10 MG tabletIndicatio ns:Insomnia, unspecified type TAKE 1 TABLET BY MOUTH AT BEDTIME NEEDED for SLEEP 28 tablet 5 5:17 PM EST 025 2024 Discontinued(R eorder (will not trigger notification to Pharmacy)) amoxicillin-cla vulanate (Augmentin) 875-125 MG tablet Take 1 tablet by mouth 2 times daily for 7 days. 14 tablet 5 2:58 PM EST 025 2024 predniSONE (Deltasone) 20 MG tablet Take 2 tablets (40 mg) by mouth Once per day for 5 days. 10 tablet 4:47 PM EST 025 2024 Active Problems Problem Noted Date Diagnosed Date Carpal tunnel syndrome of left wrist 05/28/2025 Viral upper respiratory tract infection 05/06/20 Assessment & Plan (05/06/2025 2:22 PM EST): Orders: Influenza A (ID NOW Rapid Molecular) Influenza B (ID NOW Rapid Molecular) POCT COVID-19 Ag Ponce ID NOW Hip pain 05/06/2025 Assessment & Plan (05/06/2025 2:22 PM EST): Orders: Referral to Orthopaedic Surgery; Future Acute sinusitis with symptoms > 10 days 05/06/20 Assessment & Plan (05/06/2025 2:22 PM EST): Primary osteoarthritis of left hip 04/30/2025 Acute [...] not a good medication to take for night assistant due to side effects (weight gain, osteoporosis, [...] to the hospital, case was presented to [facility] I let them know patient should have a CTA to r/o pulmonary embolism Connell's cyst of knee, right 02/07/2024 Assessment & Plan (02/07/2024 3:06 PM EDT): I will refer him to orthopedics to address his pain Hammer toe of right foot 03/29/2023 023 Neuropathy 03/29/2023 03/29/2023 Other acquired deformities of left foot 03/29/20 23 03/29/2023 FPC (current) use of opiate analgesic 03/1303/23/2023 Overview [...] continue care -pt had yesterday referral for bl LE US Recurrent deep vein thrombosis ([facility]/HCC) 018 Depressive disorder 05/18/2017 Opioid dependence 05/03/2017 [...] difficulty w his meds-does get help from [employer] ,states has VNA monthly -prescribed BP machine today and advised pt to monitor w Blue team staff auditor in 2 weeks -requested to RN team [...] decreased range of motion. Patient follows at [facility] and has been treated with injections Claustrophobia [...] a day for 10 days I certified travel counselor patient that if problem persists or [...] Encounters Date Type Department Care Team Description 06/04/2025 Telephone [facility] MEDICINE [address] [place] [address] Leland Brandon MD Nurse Triage 06/03/[address] [address] Leland Brandon MD Hospital Follow-up 06/03/[address] [address] Leland Brandon MD FYI 06/03/2025 Patient Outreach [facility] CHC MED & PEDS [address] [place], [place] [phone] Leland Brandon MD Transition Of Care (Tcm) (HDF unscheduled. ) 06/03/2025 Telephone [facility] MEDICINE [address] [place] [address] Leland Brandon MD orders 05/30/[address] [address] Leland Brandon MD Durable Medical Equipment 05/29/[address] [address] Leland Brandon MD Call Back Request 05/28/2025 3:45 PM EST Office Visit [address] [address] Leland Brandon MD Chronic pain syndrome (Primary Dx); Osteoarthritis of left hip, unspecified osteoarthritis type; Insomnia, unspecified type; Carpal tunnel syndrome of left wrist 05/28/2025 Travel 05/23/2025 Refill [facility] MEDICINE [address] [place] [address] Treviño, Sonia, ANP Chronic pain syndrome 05/20/2025 Refill [facility] MEDICINE [address] [place] [address] Leland Brandon MD Chronic midline low back pain with sciatica, sciatica laterality unspecified 05/14/[address] [address] Leland Brandon MD Durable Medical Equipment (Compression stockings) 05/13/2025 Orders Only [facility] MEDICINE [address] [place] [address] Leland Brandon MD 05/06/2025 1:40 PM EST Office Visit [facility] WALK-IN CENTER [address] [place] [phone] Ana Larios NP Viral upper respiratory tract infection (Primary Dx); Hip pain, unspecified laterality; Acute sinusitis with symptoms > 10 days 05/06/2025 Travel 05/02/2025 Telephone [facility] MEDICINE [address] [place] [address] Leland Brandon MD Durable Medical Equipment (Power recliner) 04/30/2025 1:15 PM EST Office Visit [facility] MEDICINE [address] [place] [address] Leland Brandon MD Chronic pain syndrome (Primary Dx); Neurogenic claudication due to lumbar spinal stenosis; Acute deep vein thrombosis (DVT) of left lower extremity, unspecified vein (HCC); Primary osteoarthritis of left hip 04/30/2025 Refill [facility] MEDICINE [address] [place] [address] Leland Brandon MD Insomnia, unspecified type 04/30/2025 Travel 04/19/2025 Patient Outreach [facility] PEDS [address] [place], [place] [phone] Leland Brandon MD 04/19/[address] [address] Leland Brandon MD Hospital Follow-up 04/19/[address] [phone] Leland Brandon MD verbal order 04/19/[address] [address] Lashae West [place] chart prep 04/16/[address] [address] Leland Brandon MD Durable Medical Equipment 04/15/[address] [address] Leland Brandon MD Durable Medical Equipment (SCOOTER) 04/12/[address] [address] Rubina Richardson, FaridehD 04/11/2025 Patient Outreach [facility] MED [facility] PEDS [address] [place] [address] Leland Brandon MD Transition Of Care (Tcm) (HDF scheduled. ) 04/10/2025 3:30 PM EDT Office Visit [address] [address] Leland Brandon MD Acute deep vein thrombosis (DVT) of left lower extremity, unspecified vein (HCC) (Primary Dx); Recurrent deep vein thrombosis (CMS/HCC) (HCC); Neurogenic claudication due to lumbar spinal stenosis; Chronic midline low back pain with sciatica, sciatica laterality unspecified; Complaint of nasal congestion; Encounter for immunization 04/10/2025 Travel 04/10/[address] [address] Leland Brandon MD order 2025 Orders Only [address] [address] Olga العلي MD Deep vein thrombosis (DVT) of femoral vein of left lower extremity, unspecified chronicity (HCC) (Primary Dx) [address] [address] Leland Brandon MD Nurse Triage [address] [address] Leland Brandon MD Transition Of Care (Tcm) 04/01/2025 6:20 PM EDT Office Visit [facility] WALK-IN CENTER [address] [place] [address] Ricardo Rodriguez MD Carpal tunnel syndrome of left wrist (Primary Dx) 04/01/2025 Travel 04/01/2025 Refill [facility] MEDICINE [address] [place] [address] Ana Larios NP Insomnia, unspecified type 04/01/2025 Telephone [facility] MEDICINE [address] [place] [address] NameLeland MD Med Refill 03/20/2025 Refill [facility] MEDICINE [address] [place] [address] NameLeland MD 03/13/2025 Telephone [facility] MEDICINE [address] [place] [phone] NameLeland MD HDF 03/11/2025 5:40 PM EDT Office Visit [facility] WALK[facility]IN CENTER [address] [place] [address] Skip Amanda MD Shortness of breath (Primary Dx) 03/11/2025 Telephone [facility] MEDICINE [address] [place] [address] Kelsi Huff, RN Nurse Triage 03/11/2025 Travel from Last 3 Months Immunizations Immunization Administration [...] Sign Reading Time Taken Comments Blood Pressure 120/74 05/28/2025 3:46 PM EST Pulse 88 05/28/2025 3:46 PM EST Temperature 36.2 C (97.1 F) 05/28/2025 3:46 PM EST Respiratory Rate 18 05/28/2025 3:46 PM EST Oxygen Saturation 93% 05/28/2025 3:46 PM EST Inhaled Oxygen Concentration - - Weight 124 kg (274 lb) 05/28/2025 3:46 PM EST Height 182.9 cm (6') 05/28/2025 3:46 PM EST Body Mass Index 37.16 05/28/2025 3:46 PM EST Plan of Treatment Upcoming Encounters Date Type Department Care Team (Late st Contact Info) Description 06/18/2025 10:45 AM EST Office Visit [facility] MEDICINE [address] [place] [address] Amber Ortiz MD [address] [place] [address] 07/10/2025 2:00 PM EST Telemedicine [facility] MEDICINE [address] [place] [address] Leland Brandon MD [address] [place] [address] 10/18/2025 2:00 PM EDT Office Visit [facility] OPTOMETRY [address] [place] [address] Memo, Hortencia, OD [address] [place] [address] Health Maintenance Due Date Last Done Comments [...] Alcohol/Substance Use Screening 11/16/2025 11/16/2024 Tobacco Screening 05/28/2026 05/28/2025 DTaP/Tdap/Td Vaccines (2 - Td or Tdap) [...] Procedure Name Priority Date/Time Associated Diagnosis Comments POCT COVID-19 AG PONCE ID NOW Routine 05/06/2025 2:35 PM EST Viral upper respiratory tract infection POCT INFLUENZA B (ID NOW RAPID MOLECULAR) Routine 05/06/2025 2:35 PM EST Viral upper respiratory tract infection POCT INFLUENZA A (ID NOW RAPID MOLECULAR) Routine 05/06/2025 2:35 PM EST Viral upper respiratory tract infection ECG 12-LEAD Routine 03/11/2025 6:36 PM EDT Shortness of breath POCT INFLUENZA A (ID NOW RAPID MOLECULAR) Routine 03/11/2025 6:09 PM EDT Shortness of breath POCT RAPID COVID ANTIGEN Routine 03/11/2025 6:09 PM EDT Shortness of breath POCT INFLUENZA B (ID NOW RAPID MOLECULAR) Routine 03/11/2025 6:08 PM EDT Shortness of breath HEPATITIS C AB W/REFL TO HCV RNA, [...] Recently Relevant to Health Maintenance Results * Influenza B (ID NOW Rapid Molecular) (05/06/2025 2:35 PM EST) Only the most recent of2 resultswithin the time period is included. Influenza B Negative Negative, Indeterminate [facility] Swab 05/06/2025 2:35 PM EST Ana Larios NP POINT OF CARE TEST ENTER/EDIT OR DERABLES Final Result [facility] [address] [place] [phone] * Influenza A (ID NOW Rapid Molecular) (05/06/2025 2:35 PM EST) Only the most recent of2 resultswithin the time period is included. Pathologist [facility] Influenza A Negative Negative, Indeterminate [facility] Swab 05/06/2025 2:35 PM EST Ana Larios MD UROLOGIST POINT OF CARE TEST ENTER/EDIT OR DERABLES Final Result [facility] [address] [place] [phone] * POCT COVID-19 Ag Ponce ID NOW (05/06/2025 2:35 PM EST) [facility] Coronavirus Antigen PCR Negative Negative, Indeterminate, None Detected, Trace, 3+, Specimen unsatisfactory for evaluation, Weakly Positive, 1+, 2+ Swab 05/06/2025 2:35 PM EST Ana Larios MD UROLOGIST POINT OF CARE TEST ENTER/EDIT OR DERABLES Final Result * ECG 12 lead (03/11/2025 6:36 PM EDT) Narrative Skip Amanda MD - 03/11/2025 6:36 PM EDT NSR 70, no arrhythmia, no ST-T changes, no Q-waves Skip Amanda MD ECG ORDERABLES Final Result * POCT Rapid Covid-19 BinaxNOW (03/11/2025 6:09 PM EDT) [facility] Rapid COVID Ag Negative QC Media Lot # [id number] Lot# Expiration Date Swab 03/11/2025 6:09 PM EDT Skip Amanda MD POINT OF CARE TEST ENTER/EDIT OR DERABLES Final Result * Hepatitis C Antibody with Reflex to HCV, RNA, Quantitative, Real-Time PCR (10/14/2023 11:05 AM EDT) Hepatitis C Antibody Nonreactive Nonreactive [facility] Comment:Antibodies to HCV no t detected; does not exclude early acuteHCV infection. Blood Venous blood specimen / Unknown 10/14/2023 11:05 AM EDT 10/14/2023 1:15 PM EDT us Leland Brandon MD LAB BLOOD ORDERABLES Final Resul t Performing Organization Address [facility] Co de Phone Number [facility] [address] [place] [phone] * HIV-1/2 Antigen and Antibodies, Fourth Generation, with Reflexes (10/14/2023 11:05 AM EDT) HIV AB/AG Nonreactive Nonreactive [facility] Comment:HIV-1 p24 Ag and/or HIV-1/HIV-2 Ab not detected.A test result that is nonreactive does not exclude thepossibility of exposure to or infection with HIV-1 and/orHIV-2. Nonreactive results in this assay for individualswith prior exposure to HIV-1 and/or HIV-2 may be due toantigen and antibody levels that are below the limit ofdetection of this assay.[facility] HIV Ag/Ab Combo assay result andsupplemental assay results should be interpreted inconjunction with the patient's clinical presentation,history and other laboratory results. If the results areinconsistent with clinical evidence, additional testing issuggested to confirm the result. Blood Venous blood specimen / Unknown 10/14/2023 11:05 AM EDT 10/14/2023 1:15 PM EDT us Leland Brandon MD LAB BLOOD ORDERABLES Final Resul t Performing Organization Address [facility]/ZIP Co de Phone Number [facility] [address] [place] [phone] * (ABNORMAL) Lipid Panel, Standard (10/14/2023 11:05 AM EDT) Triglycerides 105 <150 mg/dL [facility] Comment:Desirable Triglyceri de: less than 150 mg/dLBorderline High Triglyceride 150-199 mg/dLHigh Triglyceride: 200-499 mg/dLVery High Triglyceride: greater than or equal to 5OO mg/dL Cholesterol 192 <200 mg/dL [facility] Comment:Desirable Cholestero l: less than 200 mg/dLBorderline High Cholesterol: 200-239 mg/dLHigh Cholesterol: greater than 239 mg/dL LDL Cholesterol Calculated 102(H) <100 mg/dL [facility] Comment:Desirable LDL: less than 100 mg/dLNear Optimal/Above Optimal LDL: 110- 129 mg/dLBorderline High LDL: 130-159 mg/dLHigh LDL: 160-189 mg/dLVery High LDL: greater than or equal to 190 mg/dL HDL Cholesterol 69 >40 mg/dL [facility] Comment:Desirable HDL: great er than 40 mg/dL Note: This HDL assay may give artificially low results in patients with liver disease. Blood Venous blood specimen / Unknown 10/14/2023 11:05 AM EDT 10/14/2023 1:15 PM EDT us Leland Brandon MD LAB BLOOD ORDERABLES Final Resul t [facility] [address] [place] [phone] * Hm Colonoscopy (07/14/2023) Colonoscopy Normal Normal Comment:Normal Colonoscopy r epeat 10 years us Leland Brandon MD HEALTH MAINTENANCE Final Result from Last 3 Months or Most Recently Relevant to Health Maintenance Insurance [facility] < [address] [place] [id number] Care Teams Pneumatic Drum Sander Relationship Specialty Start Date End Date Name, MD Leland [address] [place] [address] PCP - General Family Medicine 08/26/15
--- OUTSIDE RECORDS SUMMARY | 2025-06-10 11:14 | XMS_ITS | Clinical Summary ---
Author Organization [facility] Address [address] [place] [address] Care Team Providers Care Compensation Business Partner Name Role Phone No, Pcp Primary Care [...] to complete this topic Insurance [facility] Care Teams Compensation Business Partner Relationship Specialty Start Date End Date No, Pcp HIREN PCP - General 01/29/22
--- OUTSIDE RECORDS SUMMARY | 2025-06-10 11:14 | XMS_ITS | Encounter Summary ---
Author Organization [employer] Address [address] [facility] [address] [place] [address] Care Team Providers Care Bolt Threader Name Role Phone Name, Leland MIMS Primary Care Provider [phone] Encounter Details Date Type Department Care Team (Late st Contact Info) Description 03/24/2023 Telephone [facility] MEDICINE [address] [place], [place] [phone] Name, MD Leland [address] [place] [address] Social History Tobacco Use Types Packs/Day Years [...] advise PCP pt is currently admitted to [facility] and was found with blood clots to both legs. Any questions, contact pt at [phone] documented in this encounter Plan of Treatment Upcoming Encounters Date Type Department Care Team (Late st Contact Info) Description 06/18/2025 10:45 AM EST Office Visit [facility] MEDICINE [address] [place] [address] Amber Ortiz MD [address] [place] [address] 07/10/2025 2:00 PM EST Telemedicine [facility] MEDICINE [address] [place] [address] Name, MD Leland [address] [place] [address] 10/18/2025 2:00 PM EDT Office Visit [facility] OPTOMETRY [address] [place] [address] Hortencia Hampton, OD [address] [place] [address] documented as of this encounter Visit Diagnoses Not on filedocumented in this encounter Additional Health Concerns Assessment Noted Time PHQ-9 Depression Total Score: 0 09/07/19 23 1:16 PM EDT documented as of this encounter Care Teams Bolt Threader Relationship Specialty Start Date End Date Leland Brandon, MD [address] [place] [address] PCP - General Family Medicine 08/26/15 documented as of this encounter
--- OUTSIDE RECORDS SUMMARY | 2025-06-10 11:14 | XMS_ITS | Encounter Summary ---
Author Organization [employer] Address [address] [facility] [address]t [place] [address] Care Team Providers Care Sleep Scientist Name Role Phone Name, Leland MIMS Primary Care Provider Reason for Visit * Reason Onset Date Comments Hospital Follow-up 06/03/2025 Encounter Details Date Type Department Care Team ([facility] st Contact Info) Description 06/03/2025 Telephone [facility] MEDICINE [address] [place] [address] Name, MD Leland [address] [place], [place] [phone] Hospital Follow-up Social History Tobacco Use Types [...] Telephone Encounter - Juan José Camarillo - 06/03/2025 1:07 PM EST Tc from pt requesting a HDF appt. Hospital: [facility] Date of admission: 05/30 Discharge date: 06/01 Diagnosed: clot , hip pain *Send message to [place] Clinical Care Coordinators Contact pt at [phone] (belizean) documented in this encounter Plan of Treatment Upcoming Encounters Date Type Department Care Team ([facility] st Contact Info) Description 06/18/2025 10:45 AM EST Office Visit [facility] MEDICINE [address] [place] [address] Amber Ortiz MD [address] [place] [phone] 07/10/2025 2:00 PM EST Telemedicine [facility] MEDICINE [address] [place] [address] Name, MD Leland [address] [place] [address] 10/18/2025 2:00 PM EDT Office Visit [facility] OPTOMETRY [address] [place], [place] [phone] Hortencia Hampton, OD [address] [place], [place] [phone] documented as of this encounter Visit Diagnoses Not on filedocumented in this encounter Additional Health Concerns Assessment Noted Time PHQ-9 Depression Total Score: 15 025 3:41 PM EDT documented as of this encounter Care Teams Sleep Scientist Relationship Specialty Start Date End Date Name, MD Leland [address] [place] [address] PCP - General Family Medicine 08/26/15 documented as of this encounter
--- OUTSIDE RECORDS SUMMARY | 2025-06-10 11:14 | XMS_ITS | Encounter Summary ---
Author Organization [employer] Address [address] [facility] [address]t [place] [address] Care Team Providers Care Nurse Rn Bsn Name Role Phone Name, Leland MIMS Primary Care Provider [phone] Reason for Visit * Reason Onset Date Comments FYI 06/03/2025 Encounter Details Date Type Department Care Team ([facility] st Contact Info) Description 06/03/2025 Telephone [facility] MEDICINE [address] [place], [place] [phone] Name, MD Leland [address] [place] [address] FYI Social History Tobacco Use Types Packs/Day [...] encounter Miscellaneous Notes * Telephone Encounter - Flakito Rsusell - 06/03/2025 11:58 AM EST Tc from Treasure LORENZO from [facility] leaving a message regarding the home Care service unfortunately they were not able to get in contact whit the pt today and are gonna try tomorrow to start the Home care service again Contact treasure at [phone] documented in this encounter Plan of Treatment Upcoming Encounters Date Type Department Care Team (Late st Contact Info) Description 06/18/2025 10:45 AM EST Office Visit [facility] MEDICINE [address] [place] [address] Amber Ortiz MD [address] [place] [address] 07/10/2025 2:00 PM EST Telemedicine [address] [address] Name, MD Leland [address] [place] [address] 10/18/2025 2:00 PM EDT Office Visit [facility] OPTOMETRY [address] [place], [place] [phone] Hortencia Hampton, OD [address] [place] [address] documented as of this encounter Visit Diagnoses Not on filedocumented in this encounter Additional Health Concerns Assessment Noted Time PHQ-9 Depression Total Score: 15 025 3:41 PM EDT documented as of this encounter Care Teams Nurse Rn Bsn Relationship Specialty Start Date End Date Name, MD Leland [address] [place], [place] [phone] PCP - General Family Medicine 08/26/15 documented as of this encounter
--- OUTSIDE RECORDS SUMMARY | 2025-06-10 11:14 | XMS_ITS | Encounter Summary ---
Author Organization [employer] Address 75 [facility] 7t [place] [address] Care Team Providers Care Imcu Specialist Name Role Phone Name, Leland MIMS Primary Care Provider [phone] Reason for Visit * Reason Onset Date Comments Med Refill 01/02/2024 Encounter Details Date Type Department Care Team ([facility] st Contact Info) Description 01/02/2024 Telephone [facility] MEDICINE 230 [place] [address] Name, MD Leland 230 [place], [place] [phone] Med Refill Social History Tobacco Use Types [...] 10 MG tablet To be sent to: [facility] - [place], [place] - [address] [place] [address] documented in this encounter Plan of Treatment Upcoming Encounters Date Type Department Care Team ([facility] st Contact Info) Description 06/18/2025 10:45 AM EST Office Visit [facility] MED[facility]INE [address] [place] [address] Amber Ortiz MD [address] [place] [address] 07/10/2025 2:00 PM EST Telemedicine [facility] [address] [place] [address], [place] [address] Name, MD Leland 230 [place], [place] [phone] 10/18/2025 2:00 PM EDT Office Visit [facility] OPTOMETRY [address] [place], [place] [phone] Memo, Hortencia, OD 230 [place], [place] [phone] documented as of this encounter Visit Diagnoses Not on filedocumented in this encounter Additional Health Concerns Assessment Noted Time PHQ-9 Depression Total Score: 0 09/14/19 24 3:10 PM EDT documented as of this encounter Care Teams Imcu Specialist Relationship Specialty Start Date End Date Name, MD Leland 230 [place] [address] PCP - General Family Medicine 08/26/15 documented as of this encounter
--- OUTSIDE RECORDS SUMMARY | 2025-06-10 11:14 | XMS_ITS | Encounter Summary ---
Author Organization [employer] Address 75 [facility] 7t [place] [address] Care Team Providers Care Diversional Therapist'S Assistant Name Role Phone Name, Leland MIMS Primary Care Provider [phone] Reason for Visit * Reason Onset Date Comments Call Back Request 10/05/2024 Encounter Details Date Type Department Care Team ([facility] st Contact Info) Description 10/05/2024 Telephone [facility] MEDICINE 230 [place] [address] Name, MD Leland 230 [place] [address] Call Back Request Social History Tobacco Use [...] PM EDT Triage call with [facility] Propulsion Systems Engineer [place] [id number] Pt is calling in regards to concerns that Pt is diabetic. Pt does have dx of impaired glucose intolerance. Pt reports an open area behind left knee that has never healed and an ulcer . It is unclearto feature writer if this is a wound that [...] 10/05/2024 4:01 PM EDT Called pt. Via [employer] header setup operator [phone] Lorenzo Fraga. Triage nurse notified me that she is currently on phone with pt. No answer as pt. Is on other line. * Telephone Encounter - Loi Cobos - 10/05/2024 3:40 PM EDT TC from pt returning call regarding prior message. Contact pt at [phone] * Telephone Encounter - Vic Finnegan - [...] has not yet been contacted by the facility.Cancellation Clerk does not see referral in system; pt states that his condition is worsening. ( Denied triage ) Please return call [phone] (VENEZUELAN) documented in this encounter Plan of Treatment Upcoming Encounters Date Type Department Care Team (Late st Contact Info) Description 06/18/2025 10:45 AM EST Office Visit [facility] MEDICINE 230 [place] [address] Amber Ortiz MD 230 [place] [address] 07/10/2025 2:00 PM EST Telemedicine [facility] MEDICINE 230 [place] [address] Name, MD Leland 230 [place] [address] 10/18/2025 2:00 PM EDT Office Visit [facility] OPTOMETRY 267 [place], [place] [phone] Hortencia [place], OD 230 [place] [address] documented as of this encounter Visit Diagnoses Not on filedocumented in this encounter Additional Health Concerns Assessment Noted Time PHQ-9 Depression Total Score: 0 09/14/19 24 3:10 PM EDT documented as of this encounter Care Teams Diversional Therapist'S Assistant Relationship Specialty Start Date End Date Name, MD Leland 230 [place], [place] [phone] PCP - General Family Medicine 08/26/15 documented as of this encounter
--- OUTSIDE RECORDS SUMMARY | 2025-06-10 11:14 | XMS_ITS | Encounter Summary ---
Author Organization [employer] Address 75 [facility] 7t [place] [address] Care Team Providers Care Pipe Fitter Gas Pipe Name Role Phone Name, Leland MIMS Primary Care Provider [phone] Reason for Visit * Reason Onset Date Comments Nurse Triage 2025 Encounter Details Date Type Department Care Team ([facility] st Contact Info) Description 2025 Telephone [facility] MEDICINE 230 [place], [place] [phone] Name, MD Leland 230 [place] [address] Nurse Triage Social History Tobacco Use Types [...] Tc to pt via BLS ID: [id number] who reports they went to [facility] on 04/02/25 leg swelling.They did imaging [...] have been experiencing shortness of breath and securities underwriter advised they should return back to the ED immediately. Pt declines need to go to ED and states the shortness and breath comes and goes. Pt advised fr pt to return back to the ED to be evaluated if symptoms worsens. Pt reports they already spoke with [facility] on [address] who said the lovenox will be ready for burr picker at 1: 30 pm. Pt advised securities underwriter will contact them with a sooner appointment with PCP due to the importance for a sooner follow up and DVT management. Pt requested for securities underwriter to contact vascular to schedule them for a follow up appointment. Tc to [facility] reports they received a script for the lovenox but it can only be filled partially and they have to order more. ED precautions reviewed and pt verbalized understanding. [facility] to [facility]. Tc to [facility] vascular who reports pt has not been [...] ED visit on : Date: 04/02/2025 Hospital: [facility] Seen for: Blood clot in the buttock area and leg Symptomatic Yes *if yes message should go to Triage Patient advised will forward to team nurse for follow up Contact pt at [phone] documented in this encounter Plan of Treatment Upcoming Encounters Date Type Department Care Team ([facility] st Contact Info) Description 06/18/2025 10:45 AM EST Office Visit [facility] MEDICINE [address] [place] [address] Amber Ortiz MD [address] [place] [address] 07/10/2025 2:00 PM EST Telemedicine [facility] MEDICINE 230 [place] [address] Name, MD Leland [address] [place] [address] 10/18/2025 2:00 PM EDT Office Visit [facility] OPT[facility] [address] [place] [address] Memo, Hortencia, OD 230 [place], [place] [phone] documented as of this encounter Visit Diagnoses Not on filedocumented in this encounter Additional Health Concerns Assessment Noted Time PHQ-9 Depression Total Score: 0 09/14/19 24 3:10 PM EDT documented as of this encounter Care Teams Pipe Fitter Gas Pipe Relationship Specialty Start Date End Date Name, MD Leland 230 [place] [address] PCP - General Family Medicine 08/26/15 documented as of this encounter
--- OUTSIDE RECORDS SUMMARY | 2025-06-10 11:14 | XMS_ITS | Encounter Summary ---
Author Organization [facility] Address [address] [place] [address] Care Team Providers Care Cna Hha Name Role Phone Name, Leland MIMS Primary Care Provider [phone] Encounter Details Date Type Department Care Team (Late st Contact Info) Description 04/06/2025 Results Follow-Up [facility] Emergency [address] [place] [address] Ly Alonzo RN Social History [...] on filedocumented in this encounter Care Teams Cna Hha Relationship Specialty Start Date End Date Name, MD Leland [address] [place], [place] PCP - General 01/06/15 documented as of this encounter
--- OUTSIDE RECORDS SUMMARY | 2025-06-10 11:14 | XMS_ITS | Encounter Summary ---
Author Organization [email or web address] Address 75 [facility] 7t [place] [address] Care Team Providers Care Technician Semiconductor Development Name Role Phone Name, Leland MIMS Primary Care Provider [phone] Reason for Visit * Reason Comments Med Refill Encounter Details Date Type Department Care Team ([facility] st Contact Info) Description 06/20/2023 Refill [facility] MEDICINE 230 [place] [address] Name, MD Leland [address] [place], [place] [phone] Insomnia, unspecified type Social History Tobacco Use [...] your housing situation today? I have andrew mcahuca 03/28/[address] you li [...] t he electric, gas, oil or water [employer] threatened to shut off services in your [...] Description 06/18/2025 10:45 AM EST Office Visit [facility] MEDICINE [address] [place] [address] Amber Ortiz MD 230 [place] [address] 07/10/2025 2:00 PM EST Telemedicine [facility] MEDICINE 230 [place] [address] Leland Brandon MD [address] [place] [address] 10/18/2025 2:00 PM EDT Office Visit [facility] OPTOMETRY [address] [place] [address] Memo, Hortencia, OD 230 [place] [address] documented as of this encounter Visit Diagnoses Diagnosis Insomnia, unspecified type documented in this encounter Additional Health Concerns Assessment Noted Time PHQ-9 Depression Total Score: 0 09/07/19 23 1:16 PM EDT documented as of this encounter Care Teams Technician Semiconductor Development Relationship Specialty Start Date End Date Leland Brandon MD [address] [place] [address] PCP - General Family Medicine 08/26/15 documented as of this encounter
--- OUTSIDE RECORDS SUMMARY | 2025-06-10 11:14 | XMS_ITS | Encounter Summary ---
Author Organization [employer] Address [address] [facility] 7t [place] [address] Care Team Providers Care Systems Coordinator Name Role Phone Name, Leland MIMS Primary Care Provider [phone] Reason for Visit * Reason Onset Date Comments Med Refill 07/28/2023 Encounter Details Date Type Department Care Team ([facility] st Contact Info) Description 07/28/2023 Telephone [facility] MEDICINE 230 [place] [address] Name, MD Leland 230 [place], [place] [phone] Med Refill Social History Tobacco Use Types [...] Vogt LPN - 07/28/2023 11:52 AM EST SECURITIES SUPERVISOR checked 07/28/23 last filled on 06/17/23 refill 2/3 patient should have 1 refill left. * Telephone Encounter - Hailee Louie - 07/28/2023 11:08 AM EST TC from pt requesting medication refill. Medications needing refill : gabapentin (Neurontin) 800 MG tablet To be sent to: [facility] - [place], [place] - [address] [place] [address] documented in this encounter Plan of Treatment Upcoming Encounters Date Type Department Care Team (Late st Contact Info) Description 06/18/2025 10:45 AM EST Office Visit [facility] MEDICINE [address] [place] [address] Amber Ortiz MD [address] [place] [address] 07/10/2025 2:00 PM EST Telemedicine [facility] MEDICINE [address] [place] [address] Name, MD Leland [address] [place] [address] 10/18/2025 2:00 PM EDT Office Visit [facility] OPTOMETRY [address] [place] [address] Hortencia [place], OD 230 [place] [address] documented as of this encounter Visit Diagnoses Not on filedocumented in this encounter Additional Health Concerns Assessment Noted Time PHQ-9 Depression Total Score: 0 09/07/19 23 1:16 PM EDT documented as of this encounter Care Teams Systems Coordinator Relationship Specialty Start Date End Date Name, MD Leland [address] [place] [address] PCP - General Family Medicine 08/26/15 documented as of this encounter
--- OUTSIDE RECORDS SUMMARY | 2025-06-10 11:14 | XMS_ITS | Encounter Summary ---
Author Organization [employer] Address 75 [facility] 7t [place] [address] Care Team Providers Care Landscape Crew Member Name Role Phone Name, Leland MIMS Primary Care Provider [phone] Reason for Visit * Reason Comments Med Refill Encounter Details Date Type Department Care Team (Late Contact Info) Description 10/22/2022 Refill [facility] MEDICINE [address] [place] [address] [phone] Name, MD Leland [address] [place] [address] Insomnia, unspecified type Social History Tobacco Use [...] [facility] 230 [place] [address] Amber Ortiz MD 230 [place], [place] [phone] 07/10/2025 2:00 PM EST Telemedicine [facility] MEDICINE 230 [place], [place] [phone] Name, MD Leland 230 [place], [place] [phone] 10/18/2025 2:00 PM EDT Office Visit [facility] OPTOMETRY [address] [place], [place] [phone] Hortencia [place], OD 230 [place], [place] [phone] documented as of this encounter Visit Diagnoses Diagnosis Insomnia, unspecified type documented in this encounter Additional Health Concerns Assessment Noted Time PHQ-9 Depression Total Score: 0 09/07/19 23 1:16 PM EDT documented as of this encounter Care Teams Landscape Crew Member Relationship Specialty Start Date End Date Name, MD Leland 230 [place], [place] [phone] PCP - General Family Medicine 08/26/15 documented as of this encounter
--- OUTSIDE RECORDS SUMMARY | 2025-06-10 11:14 | XMS_ITS | Encounter Summary ---
Author Organization [employer] Address 75 [facility] 7t [place] [address] Care Team Providers Care Coating Machine Helper Name Role Phone Name, Leland MIMS Primary Care Provider [phone] Reason for Visit * Reason Onset Date Comments Referral 07/20/2022 Encounter Details Date Type Department Care Team ([facility] st Contact Info) Description 07/20/2022 Telephone [facility] MEDICINE 230 [place], [place] [phone] Name, MD Leland 230 [place] [address] Referral Social History Tobacco Use Types Packs/Day [...] - 07/20/2022 10:13 AM EST Marva calling [facility] for new or existing referrals for [facility], [address], [place] [address], Phone #: , Reason for referral is Chronic Severe pain left foot. Marva advised pt has an X-ray done and patient does have the symptom of Chronic pain. Advised Marva with [facility] will forward to team nurse for new referral and search marketing specialist for existing referral. Please call Marva at [phone] documented in this encounter Plan of Treatment Upcoming Encounters Date Type Department Care Team (Late st Contact Info) Description 06/18/2025 10:45 AM EST Office Visit [facility] MEDICINE [address] [place] [address] Amber Ortiz MD 230 [place] [address] 07/10/2025 2:00 PM EST Telemedicine [facility] MEDICINE [address] [place] [address] Name, MD Leland 230 [place] [address] 10/18/2025 2:00 PM EDT Office Visit [facility] OPTOMETRY [address] [place] [address] Hortencia [place], OD 230 [place] [address] documented as of this encounter Visit Diagnoses Not on filedocumented in this encounter Care Teams Coating Machine Helper Relationship Specialty Start Date End Date Name, MD Leland [address] [place] [address] PCP - General Family Medicine 08/26/15 documented as of this encounter
--- OUTSIDE RECORDS SUMMARY | 2025-06-10 11:14 | XMS_ITS | Encounter Summary ---
Author Organization [employer] Address [address] [facility] [address] 7t [place] [address] Care Team Providers Care Manager Cosmetics Name Role Phone Name, Leland MIMS Primary Care Provider [phone] Reason for Visit * Reason Comments Med Refill Encounter Details Date Type Department Care Team ([facility] st Contact Info) Description 09/23/[address] [facility] 230 [place] [address] Ila Lora MD [address] [place], [place] [phone] Social History Tobacco Use Types Packs/Day Years [...] Description 06/18/2025 10:45 AM EST Office Visit [facility] MEDICINE [address] [place] [address] Amber Ortiz MD 230 [place] [address] 07/10/2025 2:[address] [facility] MED[facility]INE [address] [place] [address] Name, MD Leland 230 [place] [address] 10/18/2025 2:00 PM EDT Office Visit [facility] OPTOMETRY [address] [place] [address] [phone] Hortencia Hampton, OD 230 [place] [address] documented as of this encounter Visit Diagnoses Not on filedocumented in this encounter Additional Health Concerns Assessment Noted Time PHQ-9 Depression Total Score: 0 09/14/19 24 3:10 PM EDT documented as of this encounter Care Teams Manager Cosmetics Relationship Specialty Start Date End Date Leland Brandon MD [address] [place] [address] PCP - General Family Medicine 08/26/15 documented as of this encounter
--- OUTSIDE RECORDS SUMMARY | 2025-06-10 11:14 | XMS_ITS | Encounter Summary ---
Author Organization [employer] Address 75 [facility] 7t [place] [address] Care Team Providers Care Fitness Sales Associate Name Role Phone Name, Leland MIMS Primary Care Provider [phone] Reason for Referral * Consultation (Routine) - Authorized Specialty Diagnoses / Procedures Referred By Contac t Referred To Contact Vascular Surgery Diagnoses Deep vein thrombosis (DVT) of femoral vein of left lower extremity, unspecified chronicity (HCC) Olga العلي MD 230 [place] [address] Phone: tel: fax: [facility] [address] [facility] [address] [place] [address] Phone: tel: fax: Referral ID Status Reason Start Date Expiration Date Visits Requested Visits Authorized [id number] Authorized Specialty Services Required 2026 1 1 Encounter Details Date Type Department Care Team (Late st Contact Info) Description 2025 Orders Only [facility] MEDICINE 230 [place], [place] [phone] Olga العلي MD 230 [place], [place] [phone] Deep vein thrombosis (DVT) of femoral vein [...] 10:45 AM EST Office Visit [facility] MEDICINE 230 [place] [address] Amber Ortiz MD [address] [place], [place] [phone] 07/10/2025 2:00 PM EST Telemedicine [facility] MEDICINE 230 [place], [place] [phone] Name, MD Leland [address] [place] [address] 10/18/2025 2:00 PM EDT Office Visit [facility] OPTOMETRY [address] [place], [place] [phone] Memo, Hortencia, OD 230 [place], [place] [phone] Scheduled Referrals Name Type Priority Associated Diagnoses [...] documented as of this encounter Care Teams Fitness Sales Associate Relationship Specialty Start Date End Date Name, MD Leland [place], [place] [phone] PCP - General Family Medicine 08/26/15 documented as of this encounter
--- OUTSIDE RECORDS SUMMARY | 2025-06-10 11:14 | XMS_ITS | Encounter Summary ---
Author Organization [employer] Address 75 [facility] 7t [place] [address] Care Team Providers Care Regional Coordinator Name Role Phone Name, Leland MIMS Primary Care Provider [phone] Reason for Visit * Reason Onset Date Comments Med Refill 04/01/2025 Encounter Details Date Type Department Care Team ([facility] st Contact Info) Description 04/01/[address] [facility] MEDICINE 230 [place], [place] [phone] Name, MD Leland 230 [place], [place] [phone] Med Refill Social History Tobacco Use Types [...] 10 MG tablet To be sent to: [facility] documented in this encounter Plan of Treatment Upcoming Encounters Date Type Department Care Team (Late st Contact Info) Description 06/18/2025 10:45 AM EST Office Visit [facility] MEDICINE 230 [place] [address] Amber Ortiz MD [address] [place] [address] 07/10/2025 2:[address] [facility] MEDICINE 230 [place], [place] [phone] Name, MD Leland 230 [place], [place] [phone] 10/18/2025 2:00 PM EDT Office Visit [facility] OPTOMETRY [address] [place], [place] [phone] Hortencia Hampton, OD 230 [place], [place] [phone] documented as of this encounter Visit Diagnoses Not on filedocumented in this encounter Additional Health Concerns Assessment Noted Time PHQ-9 Depression Total Score: 0 09/14/19 24 3:10 PM EDT documented as of this encounter Care Teams Regional Coordinator Relationship Specialty Start Date End Date Name, MD Leland 230 [place], [place] [phone] PCP - General Family Medicine 08/26/15 documented as of this encounter
--- OUTSIDE RECORDS SUMMARY | 2025-06-10 11:14 | XMS_ITS | Encounter Summary ---
Author Organization [employer] Address 75 [facility] 7t [place] [address] Care Team Providers Care Medical Investigator Name Role Phone Name, Leland MIMS Primary Care Provider [phone] Encounter Details Date Type Department Care Team (Late Contact Info) Description 11/22/[address] [address] Name, MD Leland [address] [place] [address] [phone] Social History Tobacco Use Types Packs/Day Years [...] Upcoming Encounters Date Type Department Care Team ([facility] Contact Info) Description 06/18/2025 10:45 AM EST Office Visit [facility] MEDICINE [address] [place] [address] [phone] Amber Ortiz MD 230 [place], [place] [phone] 07/10/2025 2:00 PM EST Telemedicine [facility] MEDICINE 230 [place], [place] [phone] Name, MD Leland 230 [place], [place] [phone] 10/18/2025 2:00 PM EDT Office Visit [facility] OPTOMETRY [address] [place], [place] [phone] Hortencia [place], OD 230 [place], [place] [phone] documented as of this encounter Visit Diagnoses Not on filedocumented in this encounter Additional Health Concerns Assessment Noted Time PHQ-9 Depression Total Score: 0 09/07/19 23 1:16 PM EDT documented as of this encounter Care Teams Medical Investigator Relationship Specialty Start Date End Date Name, MD Leland 230 [place], [place] [phone] PCP - General Family Medicine 08/26/15 documented as of this encounter
--- OUTSIDE RECORDS SUMMARY | 2025-06-10 11:14 | XMS_ITS | Encounter Summary ---
Author Organization [employer] Address 75 [facility] 7t [place] [address] Care Team Providers Care Lead Systems Developer Name Role Phone Name, Leland MIMS Primary Care Provider [phone] Encounter Details Date Type Department Care Team (Late st Contact Info) Description 07/19/2023 Abstract [facility] MEDICINE 230 [place], [place] [phone] Name, MD Leland 230 [place], [place] [phone] Social History Tobacco Use Types Packs/Day Years [...] housing situation today? I have anderw machuca 03/28/[address] you [...] Description 06/18/2025 10:45 AM EST Office Visit [facility] MEDICINE 230 [place] [address] Amber Ortiz MD [address] [place] [address] 07/10/2025 2:00 PM EST Telemedicine [facility] MEDICINE 230 [place] [address] Leland Brandon MD [address] [place] [address] 10/18/2025 2:00 PM EDT Office Visit [facility] OPTOMETRY [address] [place] [address] Memo, Hortencia, OD 230 [place] [address] documented as of this encounter Procedures Procedure [...] as of this encounter Care Teams Lead Systems Developer Relationship Specialty Start Date End Date Leland Brandon MD 230 [place] [address] PCP - General Family Medicine 08/26/15 documented as of this encounter
--- OUTSIDE RECORDS SUMMARY | 2025-06-10 11:14 | XMS_ITS | Encounter Summary ---
Author Organization [employer] Address [address] [facility] [address] [place] [address] Care Team Providers Care Orientation And Mobility Specialist Name Role Phone Name, Leland [facility] Primary Care Provider [phone] Reason for Visit * Reason Onset Date Comments FYI 07/26/2024 Encounter Details Date Type Department Care Team ([facility] st Contact Info) Description 07/26/2024 Telephone [facility] [address] [place], [place] [phone] Name, MD Leland [address] [place] [address] FYI Social History Tobacco Use Types Packs/Day [...] trying. If any questions contact Sol at [phone] documented in this encounter Plan of Treatment Upcoming Encounters Date Type Department Care Team (Late st Contact Info) Description 06/18/2025 10:45 AM EST Office Visit [facility] [address] [place] [id number] Amber Ortiz MD [address] [place] [id number] 07/10/2025 2:00 PM EST Telemedicine [facility] [address] [place] [phone] Name, MD Leland [address] [place] [id number] 10/18/2025 2:00 PM EDT Office Visit [facility] [address] [place] [address] Hortencia Hampton, OD [address] [place] [address] documented as of this encounter Visit Diagnoses Not on filedocumented in this encounter Additional Health Concerns Assessment Noted Time PHQ-9 Depression Total Score: 0 09/14/19 24 3:10 PM EDT documented as of this encounter Care Teams Orientation And Mobility Specialist Relationship Specialty Start Date End Date Name, MD Leland [address] [place] [address] PCP - General Family Medicine 08/26/15 documented as of this encounter
== END 2025-06-10 10:31 | disposition home or self-care (01) ==
LOC: HO.PMC 10:03
PROVIDERS: PCP Internal Medicine Geriatric Medicine; Visit Provider Nurse Practitioner Family
DX: M54.9 Dorsalgia, unspecified (principal); Z79.891 Long term (current) use of opiate analgesic; G89.29 Other chronic pain; M25.552 Pain in left hip; R10.32 Left lower quadrant pain; M70.62 Trochanteric bursitis, left hip; M16.12 Unilateral primary osteoarthritis, left hip
CPT/HCPCS: 99214; G2211

== ENCOUNTER → 2025-06-10 10:02 | Outpatient (BNVA) | payer OTHER, SELFPAY | PROVIDERS: PCP Internal Medicine Geriatric Medicine; Visit Provider Nurse Practitioner Family | DX: M16.12 Unilateral primary osteoarthritis, left hip (principal); M70.62 Trochanteric bursitis, left hip; R10.32 Left lower quadrant pain; G89.29 Other chronic pain; M54.9 Dorsalgia, unspecified; F11.20 Opioid dependence, uncomplicated | CPT/HCPCS: 99212 ==